=== PATIENT | female | born 1945 | race Hispanic/Latino ===

== ENCOUNTER 2021-12-22 19:21 | Observation (INO) | payer BC, MEDICARE ==
[2021-12-22 20:23] LABS: Absolute Lymphocytes (CBC) 3.2 K/uL (0.7-4.9); Hematocrit 40.1 % (36.0-45.0); Lymphocytes % 33.2 % (15.3-44.8); MCV 90.5 fL (80-100); MPV 9.4 fL (7.6-11.3); RBC Red Blood Cell Count 4.43 M/uL (3.86-4.86)
[2021-12-22 20:38] LABS: Albumin 4.5 g/dL (3.4-5.0); Bilirubin Total 1.6 mg/dL (0.2-1.0); Potassium 3.2 mmol/L (3.5-5.1); Protein, Total 8.3 g/dL (6.4-8.2)
[2021-12-22 21:06] LABS: Arterial Blood Carboxyhemoglob 1.4 % (0-1.5); Blood Gas Oxyhemoglobin 96.5 % (94-97); Blood O2 Saturation 98.9 % (92-98.5)
[2021-12-22 21:12] LABS: Magnesium 1.5 mg/dL (1.8-2.4); Troponin High Sensitivity 13.2 pg/mL (<58.9)
[2021-12-22 21:24] LABS: Urine Blood Negative (Negative); Urine Glucose 2+ (Negative); Urine Protein Negative (Negative); Urine pH 5.5 (5.0-7.0)
--- NOTE | 2021-12-22 21:35 | RAD REPORT ---
EXAM DESCRIPTION: CT - Head Brain Wo Cont - 12/22/2021 9:28 pm CLINICAL HISTORY: Dizziness, non-specific Headache, drowsiness COMPARISON: No comparisons TECHNIQUE: All CT scans are performed using dose optimization technique as appropriate and may inclu de automated exposure control or mA/KV adjustment according to patient size. FINDINGS: No intracranial hemorrhage, hydrocephalus or extra-axial fluid collection.Mild generalized brain atrophy is present with mild periventricular and deep white matter chronic microvascular ische maru changes.No areas of brain edema or evidence of midline shift. The paranasal sinuses and mastoids are clear. The calvarium is intact. IMPRESSION: No acute intracranial abnormality.
[2021-12-22 21:48] LABS: Urine Bacteria 20-50 /HPF (<20); Urine RBC <5 /HPF (None Seen)
[2021-12-22] MEDS ORDERED: NA CHLORIDE 0.9% 1,000 ML ONE (21:55)
[2021-12-22] MEDS ORDERED: ONDANSETRON 4 MG/2 ML VIAL ONE (21:55)
--- NOTE | 2021-12-22 22:12 | RAD REPORT ---
EXAM DESCRIPTION: RAD - Chest Single View - 12/22/2021 10:06 pm CLINICAL HISTORY: Hypertensive Chest pain. COMPARISON: No comparisons FINDINGS: Portable technique limits examination quality. The lungs are grossly clear. Calcified granulomata present right lung. The heart is normal in size. N o displaced fractures.Prior CABG changes noted. IMPRESSION: No acute intrathoracic process suspected.
[2021-12-22] MEDS ORDERED: CEFTRIAXONE 1000 MG/VIAL ONE (23:18)
[2021-12-22] MEDS ORDERED: MAGNESIUM SULFATE 1 gm IVPB 1 GM/100 ML BAG IV ONE (23:18)
[2021-12-22] MEDS ORDERED: NA CHLORIDE 0.9% 50 ML ONE ×2 (23:18→23:19)
--- NOTE | 2021-12-22 23:56 | ER ---
Nurse's Notes [facility] Name: Isabel Henry Age: 76 yrs Sex: Female : 1945 Arrival Date: 12/22/2021 Time: 19:26 Bed 16 Private MD: Denia Caraballo Diagnosis: Dizziness and giddiness;Type 2 diabetes mellitus with hyperglycemia;Hypo-osmolality and hyponatremia;Hypokalemia;Hypomagnesemia;UTI/ Urinary tract infection, site not specified Presentation: 12/22 19:34 Chief complaint: Patient's son or daughter states: "She has been dizzy and nauseous. tw5 Her blood sugar was 401 at home. She is suppose to be getting insulin but hasn't had it yet because we are waiting on insurance. She started trembling about an hour ago and stating her face was tingly.". Coronavirus screen: Vaccine status: Patient reports receiving the 2nd dose of the covid vaccine. J and J Moderna booster. Ebola Screen: Patient negative for fever greater than or equal to 101.5 degrees Fahrenheit, and additional compatible Ebola Virus Disease symptoms Patient denies exposure to infectious person. Patient denies travel to an Ebola-affected area in the 21 days before illness onset. Initial Sepsis Screen: Does the patient meet any 2 criteria? No. Patient's initial sepsis screen is negative. Does the patient have a suspected source of infection? No. Patient's initial sepsis screen is negative. Risk Assessment: Do you want to hurt yourself or someone else? Patient reports no desire to harm self or others. Onset of symptoms was December 22, 2021 at 17:00. 19:34 Method Of Arrival: Wheelchair tw5 19:34 Acuity: DIANELYS 3 tw5 Triage Assessment: 19:39 General: Appears uncomfortable, Behavior is calm, cooperative, appropriate for age. tw5 General: body tremors. Pain: Denies pain. GI: Reports nausea. Historical: - Allergies: 19:37 Depo-Provera; tw5 - PMHx: 19:37 Diabetes mellitus; Myocardial infarction; Pneumonia; tw5 19:39 Hypothyroidism; tw5 - Immunization history:: Flu vaccine is up to date. - Social history:: Smoking status: Patient/guardian denies using tobacco, the patient reports quitting approximately 8 years ago. Screenin:39 Abuse screen: Denies threats or abuse. Denies injuries from another. Abuse screen: tw5 Denies threats or abuse. Nutritional screening: No deficits noted. Tuberculosis screening: No symptoms or risk factors identified. 12/23 05:34 Fall Risk No fall in past 12 months (0 pts). Secondary diagnosis (15 points) Dizzy. IV vc1 access (20 points). Ambulatory Aid- None/Bed Rest/Nurse Assist (0 pts). Gait- Normal/Bed Rest/Wheelchair (0 pts) Mental Status- Oriented to own ability (0 pts). Total Beckett Fall Scale indicates Low Risk Score (25-44 pts). Fall prevention measures have been instituted. Side Rails Up X 2 Placed close to Nursing Station. Assessment: 05:34 GI: vc1 Vital Signs: 12/22 19:34 BP 152 / 58; Pulse 88; Resp 20; Temp 98.7(O); Pulse Ox 100% ; Weight 58.97 kg; Height 5 tw5 ft. 2 in. (157.48 cm); Pain 0/10; 21:01 Pulse 86; Resp 20; Temp 98.4(TE); mh5 21:10 BP 170 / 59 Supine; Pulse 89; Resp 18; Pulse Ox 100% on R/A; mh5 21:12 BP 157 / 56 Sitting; Pulse 92; Resp 18; Pulse Ox 100% on R/A; mh5 21:14 BP 157 / 60 Standing; Pulse 94; Resp 20; Pulse Ox 100% on R/A; mh5 19:34 Body Mass Index 23.78 (58.97 kg, 157.48 cm) tw5 ED Course: 19:26 Patient arrived in ED. am2 19:26 Denia Caraballo MD is Private Physician. am2 19:37 Triage completed. tw5 19:39 Arm band placed on. tw5 19:46 Initial lab(s) drawn, by nm, sent to lab. Inserted saline lock: 20 gauge in right tw5 antecubital area, using aseptic technique. Blood collected. 19:46 CBC with Diff Sent. tw5 19:46 CMP Sent. tw5 19:46 Lipase Sent. tw5 19:50 Bronwyn Barillas is Primary Nurse. tw5 19:57 Sumit Aguirre MD is Attending Physician. 7 20:01 EKG done, by ED staff, reviewed by Sumit Aguirre MD. mh5 20:58 Patient has correct armband on for positive identification. Placed in gown. Bed in low mh5 position. Call light in reach. Adult w/ patient. Child being held by parent. 21:03 COVID-19 SARS RT PCR (Document "Date of Onset" if Symptomatic) Sent. 5 21:04 Arterial Blood Gas Sent. 5 21:04 Ketone, Serum Sent. 5 21:04 Magnesium Sent. 5 21:10 COVID swab sent to lab. ABG drawn. by RT staff, on room air. 5 21:28 Warm blanket given. Pulse ox on. NIBP on. 5 21:30 CT Head Brain wo Cont In Process Unspecified. EDMS 22:08 Chest Single View XRAY In Process Unspecified. EDMS 23:54 Eric Mejia is Hospitalizing Provider. [facility] 12/23 02:00 No provider procedures requiring assistance completed. Patient admitted, IV remains in vc1 place. 07:37 Primary Nurse role handed off by Bronwyn Barillas Administered Medications: 12/22 21:50 Drug: NS 0.9% 1000 ml Route: IV; Rate: 1000 ml; Site: right antecubital; tw5 21:50 Drug: Zofran (Ondansetron) 4 mg Route: IVP; Site: right antecubital; tw5 23:13 Drug: Rocephin (cefTRIAXone) 1 grams Route: IV; Rate: per protocol; Site: right tw5 antecubital; 23:14 Drug: Magnesium Sulfate 1 grams Route: IVPB; Infused Over: 1 hrs; Site: right tw5 antecubital; Medication: 12/23 02:00 VIS not applicable for this client. vc1 Outcome: 12/22 23:55 Decision to Hospitalize by Provider. [facility] 12/23 02:00 Admitted to ER Hold. Please see [facility] for further documentation. vc1 Condition: good Instructed on the need for admit. 14:01 Patient left the ED. Signatures: Dispatcher [employer] EDIA Cora Dodd RN RN Isabel Araiza 5 Chaya Kang Elizabeth eb Holmes, Maurice, MD MD [facility] Bronwyn Barillas Calcote, Jenny, RN RN vc1 Corrections: (The following items were deleted from the chart) 12/22 19:39 19:37 Allergies: No Known Allergies; 21:49 Zofran (Ondansetron) 4 mg IVP in left antecubital 21:49 NS 0.9% 1000 ml IV at 1000 ml in left antecubital
--- NOTE | 2021-12-22 23:56 | EDPHYS ---
Physician Documentation [facility] Name: Isabel Henry Age: 76 yrs Sex: Female : 1945 Arrival Date: 12/22/2021 Time: 19:26 Bed 16 Private MD: Denia Caraballo ED Physician Sumit Aguirre HPI: 12/22 20:30 This 76 yrs old Female presents to ER via Wheelchair with complaints of mh7 Dizziness, Nausea, Abdominal Pain, High Blood Pressure. 20:30 The patient presents with dizziness, lightheadedness, feeling off balance. mh7 20:30 Onset: The symptoms/episode began/occurred yesterday, at an unknown time. Context: mh7 occurred at home, occurred while the patient was standing, just prior to the episode the patient experienced no apparent symptoms. Modifying factors: The symptoms are alleviated by nothing, the symptoms are aggravated by nothing. Associated signs and symptoms: Pertinent positives: nausea, Pertinent negatives: abdominal pain, agitation, ataxia, blurred vision, chest pain, combativeness, confusion, diaphoresis, focal weakness, head injury, headache, near-syncope, numbness, palpitations, seizure, shortness of breath, syncope, tingling, vomiting. Severity of symptoms: At their worst the symptoms were moderate last night, in the emergency department the symptoms have improved moderately. Patient's baseline: Neuro: alert and fully oriented, Motor: no deficits, Ambulation: walks without assistance, Speech: normal. Also reports blood glucose greater than 400 today and feeling tremulous.. Historical: - Allergies: 19:37 Depo-Provera; tw5 - PMHx: 19:37 Diabetes mellitus; Myocardial infarction; Pneumonia; tw5 19:39 Hypothyroidism; tw5 - Immunization history:: Flu vaccine is up to date. - Social history:: Smoking status: Patient/guardian denies using tobacco, the patient reports quitting approximately 8 years ago. ROS: 20:30 Constitutional: Negative for fever, chills, and weight loss, Eyes: Negative for injury, mh7 pain, redness, and discharge, ENT: Negative for injury, pain, and discharge, Neck: Negative for injury, pain, and swelling, Cardiovascular: Negative for chest pain, palpitations, and edema, Respiratory: Negative for shortness of breath, cough, wheezing, and pleuritic chest pain, Back: Negative for injury and pain, : Negative for injury, bleeding, discharge, and swelling, MS/Extremity: Negative for injury and deformity, Skin: Negative for injury, rash, and discoloration, Neuro: Negative for headache, weakness, numbness, tingling, and seizure, Psych: Negative for depression, anxiety, suicide ideation, homicidal ideation, and hallucinations, Allergy/Immunology: Negative for hives, rash, and allergies, Endocrine: Negative for neck swelling, polydipsia, polyuria, polyphagia, and marked weight changes, Hematologic/Lymphatic: Negative for swollen nodes, abnormal bleeding, and unusual bruising. Exam: 20:30 Constitutional: This is a well developed, well nourished patient who is awake, alert, mh7 and in no acute distress. Head/Face: Normocephalic, atraumatic. Eyes: Pupils equal round and reactive to light, extra-ocular motions intact. Lids and lashes normal. Conjunctiva and sclera are non-icteric and not injected. Cornea within normal limits. Periorbital areas with no swelling, redness, or edema. Neck: Trachea midline, no thyromegaly or masses palpated, and no cervical lymphadenopathy. Supple, full range of motion without nuchal rigidity, or vertebral point tenderness. No Meningismus. Chest/axilla: Normal chest wall appearance and motion. Nontender with no deformity. No lesions are appreciated. Cardiovascular: Regular rate and rhythm with a normal S1 and S2. No gallops, murmurs, or rubs. Normal PMI, no JVD. No pulse deficits. Respiratory: Lungs have equal breath sounds bilaterally, clear to auscultation and percussion. No rales, rhonchi or wheezes noted. No increased work of breathing, no retractions or nasal flaring. Abdomen/GI: Soft, non-tender, with normal bowel sounds. No distension or tympany. No guarding or rebound. No evidence of tenderness throughout. Back: No spinal tenderness. No costovertebral tenderness. Full range of motion. Skin: Warm, dry with normal turgor. Normal color with no rashes, no lesions, and no evidence of cellulitis. MS/ Extremity: Pulses equal, no cyanosis. Neurovascular intact. Full, normal range of motion. 20:30 Psych: Awake, alert, with orientation to person, place and time. Behavior, mood, and affect are within normal limits. 20:30 Neuro: Orientation: is normal, Mentation: is normal, Memory: is normal, Cranial nerves: grossly normal, Cerebellar function: is grossly normal, Motor: is normal, Sensation: is normal, Gait: not tested. seizure activity, is not displayed by the patient, Abnormal movements: there are no abnormal movements. Vital Signs: 19:34 BP 152 / 58; Pulse 88; Resp 20; Temp 98.7(O); Pulse Ox 100% ; Weight 58.97 kg; Height 5 tw5 ft. 2 in. (157.48 cm); Pain 0/10; 21:01 Pulse 86; Resp 20; Temp 98.4(TE); mh5 21:10 BP 170 / 59 Supine; Pulse 89; Resp 18; Pulse Ox 100% on R/A; mh5 21:12 BP 157 / 56 Sitting; Pulse 92; Resp 18; Pulse Ox 100% on R/A; mh5 21:14 BP 157 / 60 Standing; Pulse 94; Resp 20; Pulse Ox 100% on R/A; mh5 19:34 Body Mass Index 23.78 (58.97 kg, 157.48 cm) tw5 MDM: 23:52 Differential diagnosis: cardiac arrhythmia, CVA, hypovolemia, idiopathic dizziness, 7 near-syncope, sepsis, syncope, TIA, vertigo. Data reviewed: vital signs, nurses notes, lab test result(s), cardiac enzymes, CBC, electrolytes, urinalysis, EKG, radiologic studies, CT scan, plain films. Data interpreted: Pulse oximetry: on room air is 100 %. Interpretation: normal. Counseling: I had a detailed discussion with the patient and/or guardian regarding: the historical points, exam findings, and any diagnostic results supporting the discharge/admit diagnosis, the presence of at least one elevated blood pressure reading (>120/80) during this emergency department visit, lab results, radiology results, the need for further work-up and treatment in the hospital. Response to treatment: the patient's symptoms have mildly improved after treatment. 23:55 Patient medically screened. [facility] 12/22 19:34 Order name: CBC with Diff; Complete Time: 20:42 tw5 12/22 19:34 Order name: CMP; Complete Time: 20:42 tw5 12/22 19:34 Order name: Lipase; Complete Time: 20:42 5 12/22 20:44 Order name: Troponin High Sensitivity; Complete Time: 22:32 7 12/22 20:44 Order name: Arterial Blood Gas; Complete Time: 22:32 7 12/22 20:44 Order name: Ketone, Serum; Complete Time: 22:32 7 12/22 20:44 Order name: Magnesium; Complete Time: 22:32 [facility] 12/22 20:45 Order name: Urine Microscopic Only; Complete Time: 22:32 [facility] 12/22 20:45 Order name: COVID-19 SARS RT PCR (Document "Date of Onset" if Symptomatic); Complete [facility] Time: 22:32 12/22 21:25 Order name: Urine Dipstick-Ancillary; Complete Time: 22:32 [facility] 12/22 21:51 Order name: Urine Culture [facility] 12/23 05:48 Order name: CBC with Automated Diff [facility] 12/23 06:10 Order name: Basic Metabolic Panel [facility] 12/23 06:10 Order name: Phosphorus [facility] 12/22 20:44 Order name: Chest Single View XRAY; Complete Time: 22:32 7 12/22 20:44 Order name: CT Head Brain wo Cont; Complete Time: 22:32 [facility] 12/23 06:10 Order name: Lipid Profile [facility] 12/23 06:10 Order name: Magnesium [facility] 12/23 06:10 Order name: Thyroid Stimulating Hormone [facility] 12/23 06:18 Order name: Osmolality, Serum EDMN 12/23 06:23 Order name: LDL, Direct EDMN 12/23 06:23 Order name: T4 Free [facility] 12/23 06:29 Order name: Hemoglobin A1c [facility] 12/23 06:42 Order name: UR POTASSIUM EDMS 12/23 08:23 Order name: Glucose, Ancillary Testing [facility] 12/23 11:41 Order name: Glucose, Ancillary Testing [facility] 12/22 19:34 Order name: IV Saline Lock; Complete Time: 19:46 12/22 19:34 Order name: Labs collected and sent; Complete Time: 19:46 12/22 19:34 Order name: Urine Dipstick-Ancillary (obtain specimen); Complete Time: 22:24 12/22 20:01 Order name: EKG - Nurse/Tech; Complete Time: 20:01 [facility] 12/22 20:44 Order name: Orthostatics; Complete Time: 22:24 7 Administered Medications: 21:50 Drug: NS 0.9% 1000 ml Route: IV; Rate: 1000 ml; Site: right antecubital; tw5 21:50 Drug: Zofran (Ondansetron) 4 mg Route: IVP; Site: right antecubital; tw5 23:13 Drug: Rocephin (cefTRIAXone) 1 grams Route: IV; Rate: per protocol; Site: right tw5 antecubital; 23:14 Drug: Magnesium Sulfate 1 grams Route: IVPB; Infused Over: 1 hrs; Site: right tw5 antecubital; Disposition Summary: 12/22/21 23:55 Hospitalization Ordered Hospitalization Status: Inpatient Admission [facility] Provider: Eric Mejia Selvin Condition: Stable [facility] Problem: new [facility] Symptoms: have improved [facility] Bed/Room Type: Standard [facility] Location: [facility] ER HOLD(12/23/21 11:22) Room Assignment: (12/23/21 11:22) Diagnosis - Dizziness and giddiness mh7 - Type 2 diabetes mellitus with hyperglycemia 7 - Hypo-osmolality and hyponatremia 7 - Hypokalemia mh7 - Hypomagnesemia mh7 - UTI/ Urinary tract infection, site not specified [facility] Forms: - Medication Reconciliation Form 7 - SBAR form 7 Signatures: Dispatcher [employer] Letty Guallpa RN RN dw Swanson, Donovan 4 Isabel Araiza 5 Sumit Aguirre MD MD Bronwyn Whatley 5 Janie Orozco PA PA sb3 Corrections: (The following items were deleted from the chart) 19:39 19:37 Allergies: No Known Allergies; tw5 tw5 21:13 21:10 The patient or guardian reports 7 mh7 12/23 00:16 12/22 23:55 Telemetry/MedSurg (Inpatient) 7 ds4 12/23 00:16 12/22 23:55 7 4 12/23 11:02 00:16 [facility] ER HOLD ds4 11:02 00:16 ERHOLD- ds4 dw 11:22 11:02 Telemetry/MedSurg (Inpatient) dw dw 11:22 11:02 205 dw dw
--- NOTE | 2021-12-23 00:50 | P.HP ---
Certification for Inpatient Patient admitted to: Inpatient With expected LOS: <2 Midnights Patient will require the following post-hospital care: None Practitioner: I am a practitioner with admitting privileges, knowledge of patient current condition, hospital course, and medical plan of care. Services: Services provided to patient in accordance with Admission requirements found in Title 42 Section 412.3 of the Code of Federal Regulations Patient History Date of Service: 12/23/21 Reason for admission: Dizziness History of Present Illness: Patient is a 76-year-old female with CAD, insulin-dependent diabetes mellitus, hypothyroidism, hyperlipidemia, hypertension and CVA who presented to the ED with complaints of dizziness, hyperglycemia, and hypertension. Patient states the dizziness has been occurring for about 24 hours now. She does admit to decreased appetite/PO intake. She also reports that she is supposed to be on insulin, but insurance has not approved it yet. Her labs today are significant for creatinine of 1.44, sodium 127, potassium 3.2, chloride 93, BUN 29, glucose 331, magnesium 1.5. ABG showed pH 7.5, PCO2 25.6, PO2 115, bicarb 19.8. She was given 1 L fluids, Zofran, Rocephin, and supplemental magnesium in the ED. VSS. ED provider wishes to admit patient for further evaluation and treatment. Home medications list reviewed: Yes - Past Medical/Surgical History Diabetic: Yes -: Type 2 Diabetes, Insulin-Dependent -: Hypertension -: Hyperlipidemia -: CAD -: Hypothyroidism -: CVA -: Triple Bypass -: Cholecystecomy -: L knee replacement Psychosocial/ Personal History: Patient lives with her 2 sons. - Family History Father -: Lung disease, Cancer Mother -: Diabetes - Social History Smoking Status: Former smoker Alcohol use: No CD- Drugs: No Caffeine use: Yes Place of Residence: Home Review of Systems General: As per HPI Physical Examination - Physical Exam General: Alert, In no apparent distress, Oriented x3 HEENT: Atraumatic, PERRLA, EOMI, Sclerae nonicteric Neck: Supple, 2+ carotid pulse no bruit, No LAD, Without JVD or thyroid abnormality Respiratory: Clear to auscultation bilaterally, Normal air movement Cardiovascular: Regular rate/rhythm, Normal S1 S2 Gastrointestinal: Normal bowel sounds, No tenderness Musculoskeletal: No tenderness Integumentary: No rashes Neurological: Normal speech, Normal strength at 5/5 x4 extr, Normal tone, Normal affect - Studies Laboratory Data (last 24 hrs) 12/22/21 19:45: Magnesium 1.5 L 12/22/21 19:45: Sodium 127 L, Potassium 3.2 L, BUN 29 H, Creatinine 1.44 H, Glucose 331 H, Total Bilirubin 1.6 H, AST 22, ALT 29, Alkaline Phosphatase 55, Lipase 180 12/22/21 19:45: WBC 9.6, Hgb 14.1, Hct 40.1, Plt Count 324 Assessment and Plan - Problems (Diagnosis) (1) Dizziness Current Visit: Yes Status: Acute (2) Hyponatremia Current Visit: Yes Status: Acute (3) Type 2 diabetes mellitus Current Visit: Yes Status: Chronic 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 Diabetes mellitus complication status: with hyperglycemia Qualified Code(s): E11.65 - Type 2 diabetes mellitus with hyperglycemia; 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 (4) Acute renal failure superimposed on stage 3b chronic kidney disease Current Visit: Yes Status: Acute Qualifiers: Acute renal failure type: unspecified Qualified Code(s): N17.9 - Acute kidney failure, unspecified; N18.32 - Chronic kidney disease, stage 3b (5) Hypokalemia Current Visit: Yes Status: Acute (6) Hypomagnesemia Current Visit: Yes Status: Acute (7) Hypertension Current Visit: Yes Status: Chronic Qualifiers: Hypertension type: primary hypertension Qualified Code(s): I10 - Essential (primary) hypertension (8) CAD (coronary artery disease) Current Visit: Yes Status: Chronic Qualifiers: Coronary Disease-Associated Artery/Lesion type: bypass graft [place] vs. transplanted heart: [place] heart Associated angina: without angina Qualified Code(s): I25.810 - Atherosclerosis of coronary artery bypass graft(s) without angina pectoris (9) Hypothyroidism Current Visit: Yes Status: Chronic Qualifiers: Hypothyroidism type: acquired Qualified Code(s): E03.9 - Hypothyroidism, unspecified - Plan -NS at 75 cc/hr. Encourage PO intake -Recheck BMP in morning. Dizziness could be secondary to hypovolemia/dehydration/electrolyte abnormalities -Serum osmolality, urine osmolality, and urine sodium pending -A1C ordered for morning. Aggressive SS with diabetic diet -Continue rocephin for UTI -PT consult -Monitor and replete electrolytes per protocol -Reconcile and continue home medications -Lovenox for VTE ppx -Full code Discharge Plan: Home Plan to discharge in: 48 Hours - Advance Directives Does patient have a Living Will: No Does patient have a Durable POA for Healthcare: No - Code Status/Comfort Care Code Status Assessed: Yes (Full) Critical Care: No Time Spent Managing Pts Care (In Minutes): 50
[2021-12-23] MEDS ORDERED: ACETAMINOPHEN 500 MG TAB PO PRN (03:02)
[2021-12-23] MEDS ORDERED: NA CHLORIDE 0.9% 1,000 ML IV SCH (03:02)
[2021-12-23] MEDS ORDERED: ONDANSETRON 4 MG/2 ML VIAL IV PRN (05:00)
[2021-12-23 05:34] LABS: Absolute Lymphocytes (CBC) 2.1 K/uL (0.7-4.9); Hematocrit 34.1 % (36.0-45.0); MCV 90.5 fL (80-100); RBC Red Blood Cell Count 3.76 M/uL (3.86-4.86)
[2021-12-23 05:41] VITALS: BMI 23.3
[2021-12-23 06:00] LABS: BUN Blood Urea Nitrogen 22 mg/dL (7-18); Bicarbonate 23 mmol/L (21-32); Glomerular Filtration Rate 48 ml/min (=/>90); Glucose Level 291 mg/dL (74-106); HDL Cholesterol 30 mg/dL (40-60); Magnesium 1.9 mg/dL (1.8-2.4); Phosphorus 2.8 mg/dL (2.5-4.9); Potassium 3.9 mmol/L (3.5-5.1); Sodium Level 135 mmol/L (136-145)
[2021-12-23 06:22] LABS: LDL, Direct 78 mg/dL (100-129)
[2021-12-23] MEDS: INSULIN -REGULAR HUMAN 50 UNIT/0.5 ML ML SQ SCH ×2 (07:30→12:38)
[2021-12-23] MEDS ORDERED: CEFTRIAXONE 1000 MG/VIAL ONE (08:47)
[2021-12-23] MEDS ORDERED: ENOXAPARIN 30 MG/0.3 ML SQ ONE (08:48)
[2021-12-23] MEDS ORDERED: INSULIN -REGULAR HUMAN 50 UNIT/0.5 ML ML ONE ×2 (08:48→12:21)
[2021-12-23] MEDS ORDERED: NA CHLORIDE 0.9% 50 ML ONE (08:49)
[2021-12-23] MEDS ORDERED: CEFTRIAXONE 1,000 MG in NA CHLORIDE 0.9% 50 ML IVPB SCH (09:00)
[2021-12-23] MEDS ORDERED: ENOXAPARIN 30 MG/0.3 ML SQ SCH (09:00)
[2021-12-23] MEDS ORDERED: PNEUMOCOCCAL VACCINE 0.5 ML IMVAC ONE (12:00)
--- NOTE | 2021-12-23 12:06 | P.DS ---
Admission Date: 12/23/21 Discharge Date: 12/23/21 Disposition: ROUTINE DISCHARGE Discharge Condition: FAIR Reason for Admission: Dizziness - Problems (1) Hyperlipidemia Current Visit: Yes Status: Acute (2) Dizziness Current Visit: Yes Status: Acute (3) Hypothyroidism Current Visit: Yes Status: Chronic Qualifiers: Hypothyroidism type: acquired Qualified Code(s): E03.9 - Hypothyroidism, unspecified (4) Type 2 diabetes mellitus Current Visit: Yes Status: Chronic Qualifiers: Diabetes mellitus detention insulin use: with detention use Diabetes mellitus complication status: with hyperglycemia Qualified Code(s): E11.65 - Type 2 diabetes mellitus with hyperglycemia; Z79.4 - prison (current) use of insulin Brief History of Present Illness: Patient is a 76-year-old female with CAD, insulin-dependent diabetes mellitus, hypothyroidism, hyperlipidemia, hypertension and CVA who presented to the ED with complaints of dizziness, hyperglycemia, and hypertension. Patient stated the dizziness has been occurring for about 24 hours. She reported decreased oral intake. She also reports that she is supposed to be on Ozempic, but insurance has not approved it yet. Her labs were significant for creatinine of 1.44, sodium 127, potassium 3.2, chloride 93, BUN 29, glucose 331, magnesium 1.5. ABG showed pH 7.5, PCO2 25.6, PO2 115, bicarb 19.8. She was given 1 L fluids, Zofran, Rocephin, and supplemental magnesium in the ED. vitals stable. Patient placed under observation for further management. Hospital Course: Patient placed on observation on the medical floor and hydrated with IV fluids. Patient states that his dizziness improved with treatment, currently not dizzy. She was ambulatory. Vitals have been stable. No limb weakness. Blood sugar readings improved. Head CT unremarkable Her hemoglobin A1c is 12. Patient stated her physician has prescribed new diabetes medications including glipizide and Ozempic. Patient is deemed stable for discharge. She is prescribed fenofibrate for hypertriglyceridemia. Vital Signs/Physical Exam: Temp Pulse Resp BP Pulse Ox 97.3 F 72 18 105/71 100 12/23/21 08:00 12/23/21 08:00 12/23/21 08:00 12/23/21 08:00 12/23/21 08:00 General: Alert, In no apparent distress, Oriented x3 HEENT: Mucous membr. moist/pink Neck: Supple, JVD not distended Respiratory: Clear to auscultation bilaterally, Normal air movement Cardiovascular: No edema, Regular rate/rhythm, Normal S1 S2, No murmurs Gastrointestinal: Normal bowel sounds, Soft and benign, Non-distended, No tenderness Musculoskeletal: No swelling Integumentary: No rashes, No cyanosis Neurological: Normal speech, Normal strength at 5/5 x4 extr, Cranial nerves 3-12 intact Laboratory Data at Discharge: WBC 7.9 K/uL (4.3-10.9) D 12/23/21 04:30 Hgb 12.5 g/dL (12.0-15.0) 12/23/21 04:30 Hct 34.1 % (36.0-45.0) L 12/23/21 04:30 Plt Count 232 K/uL (152-406) D 12/23/21 04:30 Sodium 135 mmol/L (136-145) L 12/23/21 04:30 Potassium 3.9 mmol/L (3.5-5.1) 12/23/21 04:30 BUN 22 mg/dL (7-18) H 12/23/21 04:30 Creatinine 1.17 mg/dL (0.55-1.3) 12/23/21 04:30 Glucose 291 mg/dL (74-106) H 12/23/21 04:30 Phosphorus 2.8 mg/dL (2.5-4.9) 12/23/21 04:30 Magnesium 1.9 mg/dL (1.8-2.4) 12/23/21 04:30 Total Bilirubin 1.6 mg/dL (0.2-1.0) H 12/22/21 19:45 AST 22 U/L (15-37) 12/22/21 19:45 ALT 29 U/L (12-78) 12/22/21 19:45 Alkaline Phosphatase 55 U/L (45-117) 12/22/21 19:45 Triglycerides 405 mg/dL (<150) H 12/23/21 04:30 Cholesterol 146 mg/dL (<200) 12/23/21 04:30 LDL Cholesterol Direct 78 mg/dL (100-129) L 12/23/21 04:30 HDL Cholesterol 30 mg/dL (40-60) L 12/23/21 04:30 Cholesterol/HDL Ratio 4.87 12/23/21 04:30 Lipase 180 U/L ([id number]) 12/22/21 19:45 Home Medications: Fenofibrate [Tricor] 48 mg PO DAILY #30 tab 12/23/21 Metformin ER [Glucophage ER*] 1,000 mg PO BIDWM 12/23/21 Metoprolol Succinate [Toprol Xl*] 25 mg PO DAILY 12/23/21 hydroCHLOROthiazide [Hydrodiuril*] 25 mg PO DAILY 12/23/21 New Medications: Fenofibrate [Tricor] 48 mg PO DAILY #30 tab Diet: ADA Activity: Fall precautions Followup: Denia Caraballo MD [Primary Care Provider] - 1-2 Weeks
[2021-12-23 14:21] VITALS: O2SAT 100
[2021-12-23 14:22] VITALS: TEMP 98.4
[2021-12-23 14:29] VITALS: BP 157/60
--- NOTE | 2021-12-25 12:27 | EKG ---
Test Date: 2021-12-22 Test Time: 19:53:14 Sales Superintendent: MARLEE MEASUREMENT RESULTS: Intervals: Rate: 89 OK: 142 QRSD: 84 QT: 382 QTc: 464 Proctor: P: -20 OK: 142 QRS: 7 T: 9 INTERPRETIVE STATEMENTS: Normal sinus rhythm Nonspecific T wave abnormality Abnormal ECG Compared to ECG 10/27/2001 18:23:00 T-wave abnormality now present Electronically Signed On 12-25-21 12:24:20 CDT by Lio Diaz
== END 2021-12-23 13:25 | disposition home or self-care (01) ==
LOC: ER 19:21 → INTOOBSV 12-23 00:39 → ERHOLD 12-23 00:39
PROVIDERS: ADMIT Internal Medicine; ATTEND Internal Medicine
DX: R42 Dizziness and giddiness (principal); E11.65 Type 2 diabetes mellitus with hyperglycemia; N39.0 Urinary tract infection, site not specified; E87.1 Hypo-osmolality and hyponatremia; E78.5 Hyperlipidemia, unspecified; E03.9 Hypothyroidism, unspecified; I25.10 Atherosclerotic heart disease of native coronary artery without angina pectoris; I10 Essential (primary) hypertension; E78.1 Pure hyperglyceridemia; E87.6 Hypokalemia; E83.42 Hypomagnesemia; I25.2 Old myocardial infarction; Z20.822 Contact with and (suspected) exposure to COVID-19; Z79.4 Long term (current) use of insulin; Z86.73 Personal history of transient ischemic attack (TIA), and cerebral infarction without residual deficits; Z95.1 Presence of aortocoronary bypass graft; Z87.891 Personal history of nicotine dependence; Z96.652 Presence of left artificial knee joint; Z90.49 Acquired absence of other specified parts of digestive tract; Z83.3 Family history of diabetes mellitus; Z80.9 Family history of malignant neoplasm, unspecified
CPT/HCPCS: 93005; 87088; 85025 ×2; 87086; 80048; 36415; 82010; 83721; 83735 ×2; 84100; 84132; 80061; 82947 ×2; 84443; 83036; 84484; 84439; 83690; 80053; 83930; 70450; 71045; 82805; 96375; 96374; 99285; U0003; J1815 ×2; J1650; J3475; J7030; J2405; 81003; 81015

== ENCOUNTER 2022-04-23 12:35 | Emergency (ER) | payer MEDICARE ==
--- OUTSIDE RECORDS SUMMARY | 2022-04-23 12:39 | XMS REPORT | Continuity of Care Document ---
:[address] [facility] t Address [address] [place] [address] Care Team Providers Name Role Phone Denia Caraballo Attending Clinician Unavailable Payers Payer Name Policy Type Policy Number Effective Date Expiration Date [facility] [id number] 2021 (MEDICARE 00:00:00 REPLACEMENT HMO) Problems Condition Condition Condition Status Onset Resolution Last Treating Co mments Source Name Details Category Date Date Treatment Clinician Date [id number] Allergy to Problem Co mmon ant bite [facility] [id number] Essential Problem Comm on (primary) Spirit hypertensi - [facility] on 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 [id number] Hypothyroi Problem Com mon dism, Spirit unspecifie - [facility] d type [facility] [id number] Coronary Problem Comm on artery Spirit disease - [facility] involving [facility] coronary Medical artery [place] heart without angina pectoris Gastroesop GERD Problem Commo n hageal without Spirit reflux esophagiti - [facility] disease s [facility] [id number] Stage 3a Problem Comm on chronic Spirit kidney - [facility] disease [facility] [id number] Type 2 Problem Commo n [id number] diabetes [facility] mellitus - with other [facility] kidney Medical complicati Center on Allergies, Adverse Reactions, Alerts Allergy Allergy Status Severity Reaction(s) Onset Inactive Treating Comm ents Source Name Type Date Date Clinician medroxyp medroxyp Active Unknown Commo n yuly Kat one one [facility] Social History Social Habit Start Date Stop Date Quantity Comments Source History of Tobacco Use Co mmon [facility] Sex Assigned At Com mirna [facility] Smoking Status Start Date Stop Date Source Former Smoker 2022-02-14 00:00:00 2022-02-14 00:00:00 Common S [facility] Medications Ordered Filled Start Stop Current Ordering Indication Dosage Frequency Signature Comments Components Source Medication Medication Date Date Medication? Clinician (SIG) Name Name glipiZIDE glipiZIDE No 1{table QD glipiZIDE XL 10 MG XL 10 MG t_with_ XL [address]} Lisinopril Lisinopril No 1{table QD Lisinopril 20 MG 20 MG t} 20 MG Lisinopril Lisinopril No 1{table QD Lisinopril 20 MG 20 MG t} 20 MG Fenofibrate Fenofibrate No 1{table QD Fenofibrat 145 MG 145 MG t} e 145 MG Omeprazole Omeprazole No QD Omeprazole 20 MG 20 MG 20 MG Ozempic Ozempic No Ozempic (0.25 or (0.25 or (0.25 or 0.5 0.5 0.5 MG/DOSE) 2 MG/DOSE) 2 MG/DOSE) 2 MG/1.5ML MG/1.5ML MG/1.5ML Atorvastati Atorvastati No 1{table QD Atorvastat n Calcium n Calcium t} in Calcium 40 MG 40 MG 40 MG Levothyroxi Levothyroxi No QD Levothyrox ne Sodium ne Sodium ine Sodium 75 MCG 75 MCG 75 MCG Fenofibrate Fenofibrate No 1{table QD Fenofibrat 145 MG 145 MG t} e 145 MG NIFEdipine NIFEdipine No NIFEdipine ER 30 MG ER 30 MG ER 30 MG hydroCHLORO hydroCHLORO No 1{table QD hydroCHLOR thiazide 25 thiazide 25 t_in_th Othiazide MG MG e_morni 25 MG ng} glipiZIDE glipiZIDE No 1{table QD glipiZIDE XL 10 MG XL 10 MG t_with_ XL [address]} metFORMIN metFORMIN No 1{table BID metFORMIN HCl 1000 MG HCl 1000 MG t_with_ HCl 1000 a_meal} MG Metoprolol Metoprolol No 1{table QD Metoprolol Succinate Succinate t} Succinate ER 25 MG ER 25 MG ER 25 MG Ozempic Ozempic No Ozempic (0.25 or (0.25 or (0.25 or 0.5 0.5 0.5 MG/DOSE) 2 MG/DOSE) 2 MG/DOSE) 2 MG/1.5ML MG/1.5ML MG/1.5ML Diflucan Diflucan No Diflucan 150 MG 150 MG 150 MG Lisinopril Lisinopril No 1{table QD Lisinopril 20 MG 20 MG t} 20 MG Fenofibrate Fenofibrate No 1{table QD Fenofibrat 145 MG 145 MG t} e 145 MG Ozempic Ozempic No Ozempic (0.25 or (0.25 or (0.25 or 0.5 0.5 0.5 MG/DOSE) 2 MG/DOSE) 2 MG/DOSE) 2 MG/1.5ML MG/1.5ML MG/1.5ML Atorvastati Atorvastati No 1{table QD Atorvastat n Calcium n Calcium t} in Calcium 40 MG 40 MG 40 MG hydroCHLORO hydroCHLORO No 1{table QD hydroCHLOR thiazide 25 thiazide 25 t_in_th Othiazide MG MG e_morni 25 MG ng} Omeprazole Omeprazole No QD Omeprazole 20 MG 20 MG 20 MG Metoprolol Metoprolol No 1{table QD Metoprolol Succinate Succinate t} Succinate ER 25 MG ER 25 MG ER 25 MG glipiZIDE glipiZIDE No 1{table QD glipiZIDE XL 10 MG XL 10 MG t_with_ XL [address]} Ozempic Ozempic No Ozempic (0.25 or (0.25 or (0.25 or 0.5 0.5 0.5 MG/DOSE) 2 MG/DOSE) 2 MG/DOSE) 2 MG/1.5ML MG/1.5ML MG/1.5ML NIFEdipine NIFEdipine No NIFEdipine ER 30 MG ER 30 MG ER 30 MG Diflucan Diflucan No Diflucan 150 MG 150 MG 150 MG Fenofibrate Fenofibrate No 1{table QD Fenofibrat 145 MG 145 MG t} e 145 MG Lisinopril Lisinopril No 1{table QD Lisinopril 20 MG 20 MG t} 20 MG metFORMIN metFORMIN No 1{table BID metFORMIN HCl 1000 MG HCl 1000 MG t_with_ HCl 1000 a_meal} MG glipiZIDE glipiZIDE No 1{table QD glipiZIDE XL 10 MG XL 10 MG t_with_ XL [address]} Levothyroxi Levothyroxi No QD Levothyrox ne Sodium ne Sodium ine Sodium 75 MCG 75 MCG 75 MCG glipiZIDE glipiZIDE No 1{table QD glipiZIDE XL 10 MG XL 10 MG t_with_ XL [address]} Lisinopril Lisinopril No 1{table QD Lisinopril 20 MG 20 MG t} 20 MG Lisinopril Lisinopril No 1{table QD Lisinopril 20 MG 20 MG t} 20 MG Fenofibrate Fenofibrate No 1{table QD Fenofibrat 145 MG 145 MG t} e 145 MG Omeprazole Omeprazole No QD Omeprazole 20 MG 20 MG 20 MG Ozempic Ozempic No Ozempic (0.25 or (0.25 or (0.25 or 0.5 0.5 0.5 MG/DOSE) 2 MG/DOSE) 2 MG/DOSE) 2 MG/1.5ML MG/1.5ML MG/1.5ML Atorvastati Atorvastati No 1{table QD Atorvastat n Calcium n Calcium t} in Calcium 40 MG 40 MG 40 MG Levothyroxi Levothyroxi No QD Levothyrox ne Sodium ne Sodium ine Sodium 75 MCG 75 MCG 75 MCG Fenofibrate Fenofibrate No 1{table QD Fenofibrat 145 MG 145 MG t} e 145 MG NIFEdipine NIFEdipine No NIFEdipine ER 30 MG ER 30 MG ER 30 MG hydroCHLORO hydroCHLORO No 1{table QD hydroCHLOR thiazide 25 thiazide 25 t_in_th Othiazide MG MG e_morni 25 MG ng} glipiZIDE glipiZIDE No 1{table QD glipiZIDE XL 10 MG XL 10 MG t_with_ XL [address]} metFORMIN metFORMIN No 1{table BID metFORMIN HCl 1000 MG HCl 1000 MG t_with_ HCl 1000 a_meal} MG Metoprolol Metoprolol No 1{table QD Metoprolol Succinate Succinate t} Succinate ER 25 MG ER 25 MG ER 25 MG Ozempic Ozempic No Ozempic (0.25 or (0.25 or (0.25 or 0.5 0.5 0.5 MG/DOSE) 2 MG/DOSE) 2 MG/DOSE) 2 MG/1.5ML MG/1.5ML MG/1.5ML Diflucan Diflucan No Diflucan 150 MG 150 MG 150 MG NIFEdipine NIFEdipine No NIFEdipine ER 30 MG ER 30 MG ER 30 MG Atorvastati Atorvastati No 1{table QD Atorvastat n Calcium n Calcium t} in Calcium 40 MG 40 MG 40 MG Levothyroxi Levothyroxi No QD Levothyrox ne Sodium ne Sodium ine Sodium 25 MCG 25 MCG 25 MCG metFORMIN metFORMIN No 1{table BID metFORMIN HCl 1000 MG HCl 1000 MG t_with_ HCl 1000 a_meal} MG hydroCHLORO hydroCHLORO No 1{table QD hydroCHLOR thiazide 25 thiazide 25 t_in_th Othiazide MG MG e_morni 25 MG ng} Metoprolol Metoprolol No 1{table QD Metoprolol Succinate Succinate t} Succinate ER 25 MG ER 25 MG ER 25 MG Omeprazole Omeprazole No QD Omeprazole 20 MG 20 MG 20 MG hydroCHLORO hydroCHLORO No 1{table QD hydroCHLOR thiazide 25 thiazide 25 t_in_th Othiazide MG MG e_morni 25 MG ng} Omeprazole Omeprazole No QD Omeprazole 20 MG 20 MG 20 MG NIFEdipine NIFEdipine No NIFEdipine ER 30 MG ER 30 MG ER 30 MG metFORMIN metFORMIN No 1{table BID metFORMIN HCl 1000 MG HCl 1000 MG t_with_ HCl 1000 a_meal} MG Metoprolol Metoprolol No 1{table QD Metoprolol Succinate Succinate t} Succinate ER 25 MG ER 25 MG ER 25 MG Levothyroxi Levothyroxi No QD Levothyrox ne Sodium ne Sodium ine Sodium 25 MCG 25 MCG 25 MCG Atorvastati Atorvastati No 1{table QD Atorvastat n Calcium n Calcium t} in Calcium 40 MG 40 MG 40 MG NIFEdipine NIFEdipine No NIFEdipine ER 30 MG ER 30 MG ER 30 MG Metoprolol Metoprolol No 1{table QD Metoprolol Succinate Succinate t} Succinate ER 25 MG ER 25 MG ER 25 MG hydroCHLORO hydroCHLORO No 1{table QD hydroCHLOR thiazide 25 thiazide 25 t_in_th Othiazide MG MG e_morni 25 MG ng} metFORMIN metFORMIN No 1{table BID metFORMIN HCl 1000 MG HCl 1000 MG t_with_ HCl 1000 a_meal} MG Omeprazole Omeprazole No QD Omeprazole 20 MG 20 MG 20 MG Levothyroxi Levothyroxi No QD Levothyrox ne Sodium ne Sodium ine Sodium 25 MCG 25 MCG 25 MCG Atorvastati Atorvastati No 1{table QD Atorvastat n Calcium n Calcium t} in Calcium 40 MG 40 MG 40 MG Metoprolol Metoprolol No 1{table QD Metoprolol Succinate Succinate t} Succinate ER 25 MG ER 25 MG ER 25 MG Levothyroxi Levothyroxi No QD Levothyrox ne Sodium ne Sodium ine Sodium 25 MCG 25 MCG 25 MCG metFORMIN metFORMIN No 1{table BID metFORMIN HCl 1000 MG HCl 1000 MG t_with_ HCl 1000 a_meal} MG hydroCHLORO hydroCHLORO No 1{table QD hydroCHLOR thiazide 25 thiazide 25 t_in_th Othiazide MG MG e_morni 25 MG ng} Omeprazole Omeprazole No QD Omeprazole 20 MG 20 MG 20 MG Atorvastati Atorvastati No 1{table QD Atorvastat n Calcium n Calcium t} in Calcium 40 MG 40 MG 40 MG NIFEdipine NIFEdipine No NIFEdipine ER 30 MG ER 30 MG ER 30 MG Metoprolol Metoprolol No 1{table QD Metoprolol Succinate Succinate t} Succinate ER 25 MG ER 25 MG ER 25 MG Levothyroxi Levothyroxi No QD Levothyrox ne Sodium ne Sodium ine Sodium 25 MCG 25 MCG 25 MCG metFORMIN metFORMIN No 1{table BID metFORMIN HCl 1000 MG HCl 1000 MG t_with_ HCl 1000 a_meal} MG hydroCHLORO hydroCHLORO No 1{table QD hydroCHLOR thiazide 25 thiazide 25 t_in_th Othiazide MG MG e_morni 25 MG ng} Omeprazole Omeprazole No QD Omeprazole 20 MG 20 MG 20 MG Atorvastati Atorvastati No 1{table QD Atorvastat n Calcium n Calcium t} in Calcium 40 MG 40 MG 40 MG NIFEdipine NIFEdipine No NIFEdipine ER 30 MG ER 30 MG ER 30 MG glipiZIDE glipiZIDE No 1{table QD glipiZIDE XL 10 MG XL 10 MG t_with_ XL [address]} Lisinopril Lisinopril No 1{table QD Lisinopril 20 MG 20 MG t} 20 MG Lisinopril Lisinopril No 1{table QD Lisinopril 20 MG 20 MG t} 20 MG Fenofibrate Fenofibrate No 1{table QD Fenofibrat 145 MG 145 MG t} e 145 MG Omeprazole Omeprazole No QD Omeprazole 20 MG 20 MG 20 MG Ozempic Ozempic No Ozempic (0.25 or (0.25 or (0.25 or 0.5 0.5 0.5 MG/DOSE) 2 MG/DOSE) 2 MG/DOSE) 2 MG/1.5ML MG/1.5ML MG/1.5ML Atorvastati Atorvastati No 1{table QD Atorvastat n Calcium n Calcium t} in Calcium 40 MG 40 MG 40 MG Levothyroxi Levothyroxi No QD Levothyrox ne Sodium ne Sodium ine Sodium 75 MCG 75 MCG 75 MCG Fenofibrate Fenofibrate No 1{table QD Fenofibrat 145 MG 145 MG t} e 145 MG NIFEdipine NIFEdipine No NIFEdipine ER 30 MG ER 30 MG ER 30 MG hydroCHLORO hydroCHLORO No 1{table QD hydroCHLOR thiazide 25 thiazide 25 t_in_ Othiazide MG MG e_morni 25 MG ng} glipiZIDE glipiZIDE No 1{table QD glipiZIDE XL 10 MG XL 10 MG t_with_ XL [address]} metFORMIN metFORMIN No 1{table BID metFORMIN HCl 1000 MG HCl 1000 MG t_with_ HCl 1000 a_meal} MG Metoprolol Metoprolol No 1{table QD Metoprolol Succinate Succinate t} Succinate ER 25 MG ER 25 MG ER 25 MG Ozempic Ozempic No Ozempic (0.25 or (0.25 or (0.25 or 0.5 0.5 0.5 MG/DOSE) 2 MG/DOSE) 2 MG/DOSE) 2 MG/1.5ML MG/1.5ML MG/1.5ML Diflucan Diflucan No Diflucan 150 MG 150 MG 150 MG Vital Signs Vital Name Observation Time Observation Value Comments Source height 2021-12-15 14:20:00 61 [in_i] Common S [facility] weight 2021-12-15 14:20:00 131.8 [lb_av] Common [facility] temperature 2021-12-15 14:20:00 97.8 [degF] Common [facility] bmi 2021-12-15 14:20:00 24.9 kg/m2 [facility] 2021-12-15 14:20:00 97 % Common S [facility] respiratory rate 2021-12-15 14:20:00 20 /min Comm on [facility] blood pressure 2021-12-15 14:20:00 152 mm[Hg] Common [facility] - systolic [facility] blood pressure 2021-12-15 14:20:00 80 mm[Hg] Common [facility] - diastolic [facility] height 2021-12-15 14:20:00 61 [in_i] Common [facility] weight 2021-12-15 14:20:00 131.8 [lb_av] [facility] temperature 2021-12-15 14:20:00 97.8 [degF] [facility] bmi 2021-12-15 14:20:00 24.9 kg/m2 [facility] S [facility] oximetry 2021-12-15 14:20:00 97 % Common S [facility] respiratory rate 2021-12-15 14:20:00 20 /min Comm on [facility] blood pressure 2021-12-15 14:20:00 152 mm[Hg] Common [facility] - systolic [facility] blood pressure 2021-12-15 14:20:00 80 mm[Hg] Common [facility] - diastolic [facility] height 2021-08-22 10:40:00 61 [in_i] Common [facility] weight 2021-08-22 10:40:00 132 [lb_av] Common S [facility] temperature 2021-08-22 10:40:00 97.5 [degF] Common [facility] bmi 2021-08-22 10:40:00 24.94 kg/m2 Common [facility] oximetry 2021-08-22 10:40:00 99 % Common [facility] respiratory rate 2021-08-22 10:40:00 16 /min Comm on [facility] blood pressure 2021-08-22 10:40:00 128 mm[Hg] Common [facility] - systolic [facility] blood pressure 2021-08-22 10:40:00 70 mm[Hg] Common [facility] - diastolic [facility] Procedures This patient has no known procedures. Encounters Start End Encounter Admission Attending Care Care Encounter Source Date/Time Date/Time Type Type Clinicians Facility Department ID 2022-02-21 Outpatient Caraballo, STLMLC STLMLC [id number] Common 10:45:02 Denia [facility] 2021-12-27 Outpatient Caraballo, STLMLC STLMLC [id number] Common 12:56:00 Denia [facility] 2021-12-13 Outpatient Caraballo, STLMLC STLMLC [id number] Common 09:28:01 Denia [facility] 2021-11-01 Outpatient Caraballo, STLMLC STLMLC [id number] Common 14:39:03 Denia [facility] 2021-08-23 Outpatient Caraballo, STLMLC STLMLC [id number] Common 09:46:33 Denia [facility] 2021-08-22 Outpatient Caraballo, STLMLC STLMLC [id number] Common 09:14:03 Denia [facility] 2022-03-29 2022-03-29 (TEL) STLMLC STLMLC [id number] Co mmon 00:00:00 00:00:00 [facility] 2022-02-212022-02-21 Outpatient DMG [id number] [facility] 00:00:00 00:00:00 [id number] [facility] 2022-02-15 2022-02-15 (TEL) STLMLC STLMLC [id number] Co mmon 00:00:00 00:00:00 [facility] 2022-01-12 2022-01-12 OFFICE STLMLC STLMLC [id number] Co mmon 00:00:00 00:00:00 VISIT [facility] PT - CHI LEVEL 4 [facility] 2022-01-01 2022-01-01 Outpatient DMG [id number] [facility] 00:00:00 00:00:00 [id number] [facility] 2021-12-15 2021-12-15 OFFICE STLMLC STLMLC [id number] Co mmon 00:00:00 00:00:00 VISIT [facility] PT - CHI [address] 2021-12-15 2021-12-15 (MCR WELL) STLMLC STLMLC [id number] Common 00:00:00 00:00:00 Medicare Spiri t Wellness [facility] 2021-12-08 2021-12-08 Outpatient DMG RIKKIG [id number] [facility] 08:03:00 08:03:00 [id number] [facility] 2021-11-10 2021-11-10 (TEL) STLMLC STLMLC [id number] Co mmon 00:00:00 00:00:00 [facility] 2021-11-07 2021-11-07 Outpatient DMG [id number] [facility] 09:00:00 09:00:00 [id number] [facility] 2021-11-03 2021-11-03 (TEL) STLMLC STLMLC [id number] Co mmon 00:00:00 00:00:00 [facility] 2021-08-22 2021-08-22 OFFICE STLMLC STLMLC [id number] Co mmon 00:00:00 00:00:00 VISIT NEW Spir it PT LEVEL 4 [facility] 2021-07-22 2021-07-22 Outpatient DMG [id number] [facility] 09:00:00 09:00:00 [id number] Results This patient has no known results.
--- NOTE | 2022-04-23 14:32 | EDPHYS ---
Physician Documentation [facility] Name: Isabel Henry Age: 76 yrs Sex: Female : 1945 Arrival Date: 04/23/2022 Time: 12:48 Bed IW5 Private MD: Denia Caraballo ED Physician Cesar Stallings HPI: 04/23 14:36 This 76 yrs old Female presents to ER via Unassigned with complaints of Facial ms3 Swelling. 14:36 76-year-old female with past medical history of diabetes, hypothyroidism, hypertension, ms3 hyperlipidemia presents for right-sided facial swelling. Patient states she has a history of parotiditis. Patient states her pain is an 8/10 and aching. Patient denies alleviating or inciting factors. Patient denies fevers, chills, nausea, vomiting. Onset: The symptoms/episode began/occurred 3 day(s) ago. Severity of symptoms: At their worst the symptoms were severe in the emergency department the symptoms are unchanged. Historical: - Allergies: 14:36 Depo-Provera; ss - PMHx: 14:36 diabetes mellitus; Hypothyroidism; Myocardial infarction; Pneumonia; ss ROS: 14:36 Constitutional: Negative for fever, and chills. Neck: Negative for injury, pain, and ms3 swelling, Cardiovascular: Negative for chest pain, and palpitations. Respiratory: Negative for shortness of breath, cough, wheezing, and pleuritic chest pain, Abdomen/GI: Negative for abdominal pain, nausea, vomiting, diarrhea, and constipation, MS/Extremity: Negative for injury and deformity, Skin: Negative for injury, rash, and discoloration. 14:36 ENT: Positive for Facial pain, facial swelling. 14:36 All other systems are negative. Exam: 14:36 Constitutional: This is a well developed, well nourished patient who is awake, alert, ms3 and in no acute distress. Neck: Trachea midline, no cervical lymphadenopathy. Supple, full range of motion without nuchal rigidity, or vertebral point tenderness. No Meningismus. Chest/axilla: Normal chest wall appearance and motion. Nontender with no deformity. Cardiovascular: Regular rate and rhythm with a normal S1 and S2. No gallops, murmurs, or rubs. Normal PMI, no JVD. No pulse deficits. Respiratory: Lungs have equal breath sounds bilaterally, clear to auscultation and percussion. No rales, rhonchi or wheezes noted. No increased work of breathing, no retractions or nasal flaring. Abdomen/GI: Soft, non-tender, with normal bowel sounds. No distension or tympany. No guarding or rebound. No evidence of tenderness throughout. Skin: Warm, dry with normal turgor. Normal color with no rashes, no lesions, and no evidence of cellulitis. 14:36 Head/face: Right parotid tenderness, moderate swelling. Vital Signs: 14:32 BP 183 / 85; Pulse 85; Resp 17; Temp 97.4(O); Pulse Ox 100% on R/A; Weight 58.06 kg; ss Height 5 ft. 0 in. (152.40 cm); Pain 8/10; 14:32 Body Mass Index 25.00 (58.06 kg, 152.40 cm) ss MDM: 14:30 Patient medically screened. ms3 14:36 Data reviewed: vital signs, nurses notes, and as a result, I will discharge patient. ED ms3 course: Discussed labs, CT versus outpatient antibiotics with patient. Patient elects for trial of outpatient antibiotics. Discussed strict return precautions with patient to include fevers, chills, shortness of breath, difficulty swallowing, worsening symptoms, or any other concerns. Patient to follow-up with Dr. Landa in 2 to 3 days. Patient understands agrees with plan. All questions were answered. . Administered Medications: No medications were administered Disposition Summary: 04/23/22 14:32 Discharge Ordered Location: Home ms3 Condition: Stable ms3 Diagnosis - Parotiditis ms3 - Facial Swelling ms3 - Facial pain ms3 - Parotitis ms3 Followup: ms3 - With: Rosalva Landa MD - When: 2 - 3 days - Reason: Recheck today's complaints Discharge Instructions: - Discharge Summary Sheet ms3 - Parotitis ms3 Forms: - Medication Reconciliation Form ms3 - Thank You Letter ms3 - Antibiotic Education ms3 - Prescription Opioid Use ms3 Prescriptions: - Clindamycin HCl 150 mg Oral Capsule - take 3 capsule by ORAL route every 8 hours for 10 days; 90 capsule; Refills: 0, ms3 Product Selection Permitted Signatures: Cora Dodd RN RN ss Stallings, Cesar, DO DO ms3
--- NOTE | 2022-04-23 15:52 | ER ---
Nurse's Notes [facility] Name: Isabel Henry Age: 76 yrs Sex: Female : 1945 Arrival Date: 04/23/2022 Time: 12:48 Bed IW5 Private MD: Denia Caraballo Diagnosis: Facial Swelling;Facial pain;Parotitis Presentation: 04/23 14:32 Chief complaint: Patient states: Swelling to R side of neck. Pt states, "I've had this ss before because of my spit gland." Pt reports it started 3 days ago. Coronavirus screen: Client denies travel out of the [place] in the last 14 days. Ebola Screen: Patient denies exposure to infectious person. Patient denies travel to an Ebola-affected area in the 21 days before illness onset. Initial Sepsis Screen: Does the patient meet any 2 criteria? No. Patient's initial sepsis screen is negative. Does the patient have a suspected source of infection? No. Patient's initial sepsis screen is negative. Risk Assessment: Do you want to hurt yourself or someone else? Patient reports no desire to harm self or others. Onset of symptoms was April 20, 2022. 14:32 Method Of Arrival: Ambulatory ss 14:32 Acuity: DIANELYS 3 ss Historical: - Allergies: 14:36 Depo-Provera; ss - PMHx: 14:36 diabetes mellitus; Hypothyroidism; Myocardial infarction; Pneumonia; ss Vital Signs: 14:32 BP 183 / 85; Pulse 85; Resp 17; Temp 97.4(O); Pulse Ox 100% on R/A; Weight 58.06 kg; ss Height 5 ft. 0 in. (152.40 cm); Pain 8/10; 14:32 Body Mass Index 25.00 (58.06 kg, 152.40 cm) ED Course: 12:48 Patient arrived in ED. am2 12:49 Denia Caraballo is Private Physician. am2 14:06 Cesar Stallings DO is Attending Physician. ms3 14:30 Rosalva Landa MD is Referral Physician. ms3 14:36 Triage completed. ss 14:36 Arm band placed on right wrist. ss 15:24 Sharon Alan, ALBERT is Primary Nurse. iw Administered Medications: No medications were administered Outcome: 14:32 Discharge ordered by ms3 15:24 Discharged to home ambulatory. iw 15:24 Condition: good 15:24 Discharge instructions given to patient, Instructed on discharge instructions, follow up and referral plans. medication usage, Demonstrated understanding of instructions, follow-up care, medications, Prescriptions given X 1. 15:52 Patient left the ED. iw Signatures: Sharon Alan RN RN iw Cora Dodd RN RN ss Chaya Kang Marcus, DO DO ms3
[2022-04-23 16:03] VITALS: BP 183/85; TEMP 97.4; O2SAT 100
== END 2022-04-23 15:52 | disposition home or self-care (01) ==
LOC: ER 12:35
DX: K11.20 Sialoadenitis, unspecified (principal); E11.9 Type 2 diabetes mellitus without complications; Z88.8 Allergy status to other drugs, medicaments and biological substances
CPT/HCPCS: 99282

== ENCOUNTER 2022-10-01 19:24 | Observation (INO) | payer MEDICARE ==
--- OUTSIDE RECORDS SUMMARY | 2022-10-01 19:28 | XMS REPORT | Continuity of Care Document ---
:1945 Author Organization [facility] t Address [address] [place] [address] Care Team Providers Name Role Phone Denia Caraballo Attending Clinician Unavailable Katerina Brewer Attending Clinician Anuja Mcadams Attending Clinician Payers Payer Name Policy Type Policy Number Effective Date Expiration Date Brie kraus [facility] [employer] [id number] 2021 (MEDICARE 00:00:00 REPLACEMENT HMO) Problems Condition Condition Condition Status Onset Resolution Last Treating Co mments Source Name Details Category Date Date Treatment Clinician Date [id number] Allergy to Problem Co mmon ant bite [facility] [id number] Essential Problem Comm on (primary) [facility] hypertensi - [facility] on [facility] [id number] Other Problem Common specified [facility] 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 [facility] [id number] Type 2 Problem Common diabetes [facility] mellitus - [facility] with [facility] long-term current use of insulin [id number] Mixed Problem Common hyperlipid [facility] emia - [facility] [id number] Hypothyroi Problem Com mon dism, [facility] unspecifie - [facility] d type [facility] [id number] Coronary Problem Comm on artery [facility] disease - [facility] involving [facility] coronary Medical artery [facility] [place] heart without angina pectoris Gastroesop GERD Problem Commo n hageal without [facility] reflux esophagiti - [facility] disease s [facility] [id number] Stage 3a Problem Comm on chronic [facility] kidney - [facility] disease [facility] [id number] Type 2 Problem Commo n 9102 diabetes [facility] mellitus - [facility] with other [facility] kidney Medical complicati Center on Allergies, Adverse Reactions, Alerts Allergy Allergy Status Severity Reaction(s) Onset Inactive Treating Comm ents Source Name Type Date Date Clinician medroxyp medroxyp Active Unknown Commo n rogtimothy rogester [facility] one one [facility] Social History Social Habit Start Date Stop Date Quantity Comments Source History of Tobacco Use Co mmon [facility] Sex Assigned At Com mon [facility] Smoking Status Start Date Stop Date Source Former Smoker 2022-02-14 00:00:00 2022-02-14 00:00:00 [facility] Medications Ordered Filled Start Stop Current Ordering Indication Dosage Frequency Signature Comments Components Source Medication Medication Date Date Medication? Clinician (SIG) Name Name NIFEdipine NIFEdipine No NIFEdipine ER 30 MG [...] Diflucan 150 MG 150 MG 150 MG glipiZIDE glipiZIDE No 1{table QD glipiZIDE [...] MG 145 MG t} e 145 MG Vital Signs Vital Name Observation Time Observation Value Comments Source height 2021-12-15 14:20:00 61 [in_i] [facility] weight 2021-12-15 14:20:00 131.8 [lb_av] [facility] temperature 2021-12-15 14:20:00 97.8 [degF] [facility] bmi 2021-12-15 14:20:00 24.9 kg/m2 [facility] oximetry 2021-12-15 14:20:00 97 % [facility] respiratory rate 2021-12-15 14:20:00 20 /min Comm on [facility] blood pressure 2021-12-15 14:20:00 152 mm[Hg] [facility] - systolic [facility] blood pressure 2021-12-15 14:20:00 80 mm[Hg] Common [facility] - diastolic [facility] height 2021-12-15 14:20:00 61 [in_i] [facility] weight 2021-12-15 14:20:00 131.8 [lb_av] [facility] temperature 2021-12-15 14:20:00 97.8 [degF] [facility] bmi 2021-12-15 14:20:00 24.9 kg/m2 [facility] oximetry 2021-12-15 14:20:00 97 % [facility] respiratory rate 2021-12-15 14:20:00 20 /min Comm on [facility] blood pressure 2021-12-15 14:20:00 152 mm[Hg] Common [facility] - systolic [facility] blood pressure 2021-12-15 14:20:00 80 mm[Hg] Common [facility] - diastolic [facility] height 2021-08-22 10:40:00 61 [in_i] Common [facility] weight 2021-08-22 10:40:00 132 [lb_av] Common [facility] temperature 2021-08-22 10:40:00 97.5 [degF] [facility] bmi 2021-08-22 10:40:00 24.94 kg/m2 [facility] oximetry 2021-08-22 10:40:00 99 % [facility] respiratory rate 2021-08-22 10:40:00 16 /min Comm on [facility] blood pressure 2021-08-22 10:40:00 128 mm[Hg] Common [facility] systolic [facility] blood pressure 2021-08-22 10:40:00 70 mm[Hg] Common [facility] diastolic [facility] Procedures This patient has no known procedures. Encounters Start End Encounter Admission Attending Care Care Encounter Source Date/Time Date/Time Type Type Clinicians Facility Department ID 2022-09-17 Outpatient Caraballo, STLMLC STLMLC [id number] Common 09:17:04 Denia [address] [facility] 2022-08-27 Outpatient Caraballo, STLMLC STLC [id number] Common 08:20:01 Denia 75175 [facility] 2022-02-21 Outpatient Caraballo, STLMLC STLMLC [id number] Common 10:45:02 Denia [facility] 2021-12-27 Outpatient Caraballo, STLMLC STLMLC [id number] Common 12:56:00 Denia [facility] 2021-12-13 Outpatient Caraballo, STLMLC STLMLC [id number] Common 09:28:01 Denia [facility] 2021-11-01 Outpatient Caraballo, STLMLC STLMLC [id number] Common 14:39:03 Denia [facility] 2021-08-23 Outpatient Caraballo, STLMLC STLMLC [id number] Common 09:46:33 Denia [facility] 2021-08-22 Outpatient Ilya, STLMLC STLMLC [id number] Common 09:14:03 Denia [facility] 2022-09-29 2022-09-29 Outpatient DMG DM [id number] [facility] 00:00:00 00:00:00 [id number] [facility] 2022-04-13 2022-04-13 Care Katerina [id number]. [id number]. CLAC [id number] [facility] 21:00:00 21:30:00 [employer] [place] [id number] [facility] [id number] 2022-03-29 2022-03-29 (TEL) STLMLC STLMLC [id number] Co mmon 00:00:00 00:00:00 [facility] 2022-02-26 2022-02-26 CAV Anuja [id number]. [id number]. CLAC [id number] [facility] 15:30:00 16:30:00 Pema [id number] [facility] [id number] 2022-02-21 2022-02-21 Outpatient DMG DM [id number] [facility] 00:00:00 00:00:00 [id number] [facility] 2022-02-15 2022-02-15 (TEL) STLMLC STLMLC [id number] Co mmon 00:00:00 00:00:00 [facility] 2022-01-12 2022-01-12 OFFICE STLMLC STLMLC [id number] Co mmon 00:00:00 00:00:00 VISIT [facility] 4 [facility] 2022-01-01 2022-01-01 Outpatient DMG [facility] [id number] [facility] 00:00:00 00:00:00 [id number] [facility] 2021-12-15 2021-12-15 OFFICE STLMLC STLMLC [id number] Co mmon 00:00:00 00:00:00 VISIT Spirit ESTAB PT - [facility] LEVEL 4 [facility] 2021-12-15 2021-12-15 (MCR WELL) STLMLC STLMLC [id number] Common 00:00:00 00:00:00 Medicare [facility] - [facility] 2021-12-08 2021-12-08 Outpatient DMG DM [id number] [facility] 08:03:00 08:03:00 [id number] [facility] 2021-11-10 2021-11-10 (TEL) STLMLC STLMLC [id number] Co mmon 00:00:00 00:00:00 [facility] 2021-11-07 2021-11-07 Outpatient DMG [id number] [facility] 09:00:00 09:00:00 [id number] [facility] l [facility] 2021-11-03 2021-11-03 (TEL) STLMLC STLMLC [id number] Co mmon 00:00:00 00:00:00 [facility] 2021-08-22 2021-08-22 OFFICE STLMLC STLMLC [id number] Co mmon 00:00:00 00:00:00 VISIT NEW Spir it PT LEVEL 4 - [facility] 2021-07-22 2021-07-22 Outpatient DMG [facility] [id number] [facility] 09:00:00 09:00:00 Medica l Group Results This patient has no known results.
[2022-10-01 20:11] LABS: Hematocrit 31.3 % (36.0-45.0); Lymphocytes % 10.9 % (15.3-44.8); MCV 92.3 fL (80-100); MPV 8.2 fL (7.6-11.3); RBC Red Blood Cell Count 3.39 M/uL (3.86-4.86)
[2022-10-01 20:27] LABS: Albumin 3.7 g/dL (3.4-5.0); Bilirubin Direct 0.2 mg/dL (0-0.2); Bilirubin Total 0.6 mg/dL (0.2-1.0); Magnesium 1.4 mg/dL (1.6-2.4); Potassium 4.3 mEq/L (3.5-5.1); Protein, Total 7.3 g/dL (6.4-8.2); Troponin High Sensitivity 12.2 pg/mL (<58.9)
[2022-10-01] MEDS ORDERED: MAGNESIUM SULFATE 1 gm IVPB 1 GM/100 ML BAG IV ONE (20:36)
--- NOTE | 2022-10-01 21:20 | RAD REPORT ---
EXAM DESCRIPTION: RADChest Single View10/01/2022 8:57 pm CLINICAL HISTORY: MALAISE COMPARISON: Chest Single View dated 12/22/2021 TECHNIQUE: Portable AP view of the chest. FINDINGS: The lungs are clear.5 millimeter calcified right lower lung nodule is stable. No pneumotho rax or effusion. The cardiomediastinal contours are stable, with sequelae of prior CABG. IMPRESSION: No acute cardiopulmonary process.
--- NOTE | 2022-10-01 22:55 | ER ---
Nurse's Notes [facility] Name: Isabel Henry Age: 76 yrs Sex: Female : 1945 Arrival Date: 10/01/2022 Time: 19:24 Bed 5 Private MD: Diagnosis: Hypoglycemia, unspecified Presentation: 10/01 19:31 Chief complaint: EMS states: We were called for hypertension and slurred speech, upon jb4 arrival pt was reporting blurry vision and presented with slurred speech, mentioned being diabetic. BGL was was 50 so we gave 150ml of D10 via 18g to RAC. All symptoms resolved, BGL increased to 154. Coronavirus screen: At this time, the client does not indicate any symptoms associated with coronavirus-19. Ebola Screen: No symptoms or risks identified at this time. Initial Sepsis Screen: Does the patient meet any 2 criteria? No. Patient's initial sepsis screen is negative. Does the patient have a suspected source of infection? No. Patient's initial sepsis screen is negative. Risk Assessment: Do you want to hurt yourself or someone else? Patient reports no desire to harm self or others. Onset of symptoms was October 01, 2022. Transition of care: patient was not received from another setting of care. 19:31 Method Of Arrival: EMS: [facility] jb4 19:31 Acuity: DIANELYS 3 jb4 Historical: - Allergies: 19:40 Depo-Provera; jb4 19:40 Vicodin; jb4 - PMHx: 19:40 diabetes mellitus; Hypothyroidism; Myocardial infarction; Pneumonia; jb4 - Immunization history:: Adult Immunizations up to date. - Social history:: Smoking status: Patient/guardian denies using tobacco. Screenin:46 [facility] ED Fall Risk Assessment (Adult) History of falling in the last 3 months, jb4 including since admission No falls in past 3 months (0 pts) Confusion or Disorientation No (0 pts) Score/Fall Risk Level 0 - 2 = Low Risk Oriented to surroundings, Maintained a safe environment. Abuse screen: Denies threats or abuse. Nutritional screening: No deficits noted. Tuberculosis screening: No symptoms or risk factors identified. Assessment: 19:46 General: Appears in no apparent distress. comfortable, Behavior is calm, cooperative, jb4 appropriate for age. Pain: Denies pain. Neuro: Level of Consciousness is awake, alert, obeys commands, Oriented to person, place, time, situation, Automotive Painter are equal bilaterally Moves all extremities. Full function Speech is normal, Facial symmetry appears normal, Pupils are PERRLA. Cardiovascular: Patient's skin is warm and dry. Respiratory: Airway is patent Respiratory effort is even, unlabored, Respiratory pattern is regular, symmetrical. GI: No signs and/or symptoms were reported involving the gastrointestinal system. : No signs and/or symptoms were reported regarding the genitourinary system. EENT: No signs and/or symptoms were reported regarding the EENT system. Derm: Skin is intact, Skin is pink, warm \T\ dry. Musculoskeletal: Circulation, motion, and sensation intact. Range of motion: intact in all extremities. 21:00 Reassessment: Patient appears in no apparent distress at this time. Patient and/or jb4 family updated on plan of care and expected duration. Pain level reassessed. Patient is alert, oriented x 3, equal unlabored respirations, skin warm/dry/pink. 22:00 Reassessment: Patient appears in no apparent distress at this time. Patient and/or jb4 family updated on plan of care and expected duration. Pain level reassessed. Patient is alert, oriented x 3, equal unlabored respirations, skin warm/dry/pink. 23:04 Reassessment: Patient appears in no apparent distress at this time. Patient and/or jb4 family updated on plan of care and expected duration. Pain level reassessed. Patient is alert, oriented x 3, equal unlabored respirations, skin warm/dry/pink. 10/02 00:00 Reassessment: Patient appears in no apparent distress at this time. Patient and/or jb4 family updated on plan of care and expected duration. Pain level reassessed. Patient is alert, oriented x 3, equal unlabored respirations, skin warm/dry/pink. 01:30 Reassessment: Patient appears in no apparent distress at this time. Patient and/or jb4 family updated on plan of care and expected duration. Pain level reassessed. Patient is alert, oriented x 3, equal unlabored respirations, skin warm/dry/pink. Vital Signs: 10/01 19:31 BP 157 / 62; Pulse 75; Resp 16; Temp 98.5(O); Pulse Ox 100% on R/A; Weight 60.78 kg jb4 (R); Height 5 ft. 0 in. (R); Pain 0/10; 21:00 BP 154 / 60; Pulse 80; Resp 16; Pulse Ox 100% on R/A; jb4 22:00 BP 166 / 59; Pulse 73; Resp 16; Pulse Ox 100% on R/A; jb4 23:00 BP 172 / 84; Pulse 79; Resp 16; Pulse Ox 100% on R/A; jb4 23:50 BP 179 / 60; Pulse 80; Resp 16; Pulse Ox 99% on R/A; jb4 10/02 01:00 BP 144 / 67; Pulse 82; Resp 16; Pulse Ox 98% on R/A; jb4 10/01 19:31 Body Mass Index 26.17 (60.78 kg, 152.4 cm) jb4 10/01 19:31 Pain Scale: Adult 4 ED Course: 10/01 19:31 Patient arrived in ED. jb4 19:38 Triage completed. jb4 19:40 Arm band placed on right wrist. jb4 19:44 Cecily Retana FNP-C is PHCP. kb 19:44 Rock Musa MD is Attending Physician. kb 19:46 Gregory Hollis, ALBERT is Primary Nurse. jb4 19:46 Patient has correct armband on for positive identification. Bed in low position. Call jb4 light in reach. Side rails up X 1. Client placed on continuous cardiac and pulse oximetry monitoring. NIBP monitoring applied. 19:46 Maintain EMS IV. Dressing intact. Good blood return noted. Site clean \T\ dry. Gauge \T\ kris 4 site: 18g RAC. 20:06 Basic Metabolic Panel Sent. jb4 20:06 CBC with Diff Sent. jb4 20:06 LFT's Sent. jb4 20:06 Magnesium Sent. jb4 20:06 Troponin HS Sent. jb4 20:59 XRAY Chest (1 view) In Process Unspecified. EDMS 22:55 Marciano Mims MD is Hospitalizing Provider. kb 10/02 02:00 No provider procedures requiring assistance completed. Patient admitted, IV remains in jb4 place. Administered Medications: 10/01 20:35 Drug: Magnesium Sulfate IVPB 1 grams Route: IVPB; Infused Over: 1 hrs; Site: right jb4 antecubital; Medication: 19:46 VIS not applicable for this client. jb4 Outcome: 22:55 Decision to Hospitalize by Provider. kb 10/02 02:00 Admitted to Tele accompanied by nurse, via wheelchair, with chart. jb4 02:01 Condition: stable jb4 02:01 Discharge instructions given to patient, Instructed on the need for admit, Demonstrated understanding of instructions. 02:02 Patient left the ED. jb4 Signatures: Dispatcher [employer] EDMS Cecily Retana, INVENTORY ASSOCIATE-C INVENTORY ASSOCIATE-Gregory Salinas, RN RN jb4 Corrections: (The following items were deleted from the chart) 10/01 19:49 19:31 Chief complaint: EMS states: We were called for hypertension and slurred speech, jb4 upon arrival pt was reporting blurry vision and presented with slurred speech, mentioned being diabetic. BGL was was 50 so we gave 150ml of D10 via 18g to LAC. All symptoms resolved, BGL increased to 154 jb4 10/02 02:02 01:00 BP 112 / 75; Pulse 84bpm; Resp 16bpm; Pulse Ox 99% RA; jb4 jb4
--- NOTE | 2022-10-01 22:55 | EDPHYS ---
Physician Documentation [facility] Name: Isabel Henry Age: 76 yrs Sex: Female : 1945 Arrival Date: 10/01/2022 Time: 19:24 Bed 5 Private MD: ED Physician Rock Musa HPI: 10/02 00:24 This 76 yrs old Female presents to ER via EMS with complaints of hypoglycemia. kb 00:25 The patient or guardian reports altered mental status, hypoglycemia, blurred vision, kb slurred speech that was potentially precipitated by no particular event, with the patient's symptoms witnessed by family, Treatment prior to arrival includes: EMS D10. Onset: The symptoms/episode began/occurred just prior to arrival. Associated signs and symptoms: Pertinent positives: None. Current symptoms: In the emergency department the patient's symptoms have resolved, the patient is alert and fully oriented, has normal speech, has normal responsiveness, has no confusion. The patient has not experienced similar symptoms in the past. The patient has not recently seen a physician. Historical: - Allergies: 10/01 19:40 Depo-Provera; jb4 19:40 Vicodin; jb4 - PMHx: 19:40 diabetes mellitus; Hypothyroidism; Myocardial infarction; Pneumonia; jb4 - Immunization history:: Adult Immunizations up to date. - Social history:: Smoking status: Patient/guardian denies using tobacco. ROS: 10/02 00:23 Constitutional: Negative for fever, chills, and weight loss. kb Neuro: Positive for speech changes, visual changes. Endocrine: Positive for hypoglycemia. All other systems are negative. Exam: 00:23 Constitutional: This is a well developed, well nourished patient who is awake, alert, kb and in no acute distress. Head/Face: Normocephalic, atraumatic. ENT: Moist Mucous membranes Cardiovascular: Regular rate and rhythm with a normal S1 and S2. No gallops, murmurs, or rubs. No pulse deficits. Respiratory: Respirations even and unlabored. No increased work of breathing. Talking in full sentences Abdomen/GI: Soft, non-tender. No distention Skin: Warm, dry with normal turgor. Normal color. MS/ Extremity: Pulses equal, no cyanosis. Neurovascular intact. Full, normal range of motion. Neuro: Awake and alert, GCS 15, oriented to person, place, time, and situation. Moves all extremities. Normal gait. 00:51 ECG was reviewed by the Attending Physician. Vital Signs: 10/01 19:31 BP 157 / 62; Pulse 75; Resp 16; Temp 98.5(O); Pulse Ox 100% on R/A; Weight 60.78 kg jb4 (R); Height 5 ft. 0 in. (R); Pain 0/10; 21:00 BP 154 / 60; Pulse 80; Resp 16; Pulse Ox 100% on R/A; jb4 22:00 BP 166 / 59; Pulse 73; Resp 16; Pulse Ox 100% on R/A; jb4 23:00 BP 172 / 84; Pulse 79; Resp 16; Pulse Ox 100% on R/A; jb4 23:50 BP 179 / 60; Pulse 80; Resp 16; Pulse Ox 99% on R/A; [facility] 10/02 01:00 BP 144 / 67; Pulse 82; Resp 16; Pulse Ox 98% on R/A; [facility] 10/01 19:31 Body Mass Index 26.17 (60.78 kg, 152.4 cm) [facility] 10/01 19:31 Pain Scale: Adult [facility] MDM: 10/01 19:44 Patient medically screened. 10/02 00:24 Data reviewed: vital signs, nurses notes. 00:24 Differential diagnosis: hypoglycemic episode, cva, tia. Consideration of kb Admission/Observation Patient was admitted/placed on observation. Management of patient was discussed with the following: Hospitalist: Luigi FACE WORKER accepts pt for admission under Dr Mims. Historians other than the Patient: EMS: [facility]. Counseling: I had a detailed discussion with the patient and/or guardian regarding: the historical points, exam findings, and any diagnostic results supporting the discharge/admit diagnosis, lab results, the need for further work-up and treatment in the hospital. 10/01 19:48 Order name: Basic Metabolic Panel; Complete Time: 20:27 kb 10/01 19:48 Order name: CBC with Diff; Complete Time: 20:17 kb 10/01 19:48 Order name: LFT's; Complete Time: 20:27 kb 10/01 19:48 Order name: Magnesium; Complete Time: 20:27 kb 10/01 19:48 Order name: Troponin HS; Complete Time: 20:27 kb 10/01 19:57 Order name: Glucose, Ancillary Testing; Complete Time: 19:58 EDMS 10/01 23:20 Order name: Glucose, Ancillary Testing; Complete Time: 23:24 EDMS 10/02 01:29 Order name: Glucose, Ancillary Testing EDMS 10/01 19:48 Order name: XRAY Chest (1 view); Complete Time: 21:28 kb 10/01 19:48 Order name: EKG; Complete Time: 19:48 kb 10/01 19:58 Order name: Diet Regular; Complete Time: 19:59 kb 10/01 19:48 Order name: Cardiac monitoring; Complete Time: 20:06 kb 10/01 19:48 Order name: EKG - Nurse/Tech; Complete Time: 20:06 kb 10/01 19:48 Order name: IV Saline Lock; Complete Time: 19:49 kb 10/01 19:48 Order name: Labs collected and sent; Complete Time: 20:06 kb 10/01 19:48 Order name: O2 Per Protocol; Complete Time: 19:49 kb 10/01 19:48 Order name: O2 Sat Monitoring; Complete Time: 19:49 kb 10/01 22:50 Order name: Blood Glucose Level; Complete Time: 23:10 kb EC:51 Rate is 75 beats/min. Rhythm is regular. QRS [place] is Normal. SD interval is normal at kb 154 msec. QRS interval is normal at 84 msec. QT interval is normal at 460 msec. Administered Medications: 10/01 20:35 Drug: Magnesium Sulfate IVPB 1 grams Route: IVPB; Infused Over: 1 hrs; Site: right 4 antecubital; Disposition Summary: 10/01/22 22:55 Hospitalization Ordered Hospitalization Status: Observation kb Provider: Marciano Mims Location: Telemetry/MedSurg (observation) kb Condition: Stable kb Problem: new kb Symptoms: have improved kb Bed/Room Type: Standard Room Assignment: 411(10/01/22 23:43) kd3 Diagnosis - Hypoglycemia, unspecified kb Forms: - Medication Reconciliation Form kb - SBAR form kb Signatures: Dispatcher [employer] EDCecily Casanova, JOHNATHON BURKETT-Gregory Salinas RN RN jb4 Elo Miller RN RN kd3 Corrections: (The following items were deleted from the chart) 23:43 22:55 kb kd3
--- NOTE | 2022-10-01 23:44 | P.HP ---
Certification for Inpatient Patient admitted to: Observation With expected LOS: <2 Midnights Patient will require the following post-hospital care: None Practitioner: I am a practitioner with admitting privileges, knowledge of patient current condition, hospital course, and medical plan of care. Services: Services provided to patient in accordance with Admission requirements found in Title 42 Section 412.3 of the Code of Federal Regulations Patient History Date of Service: 10/01/22 Reason for admission: Hypoglycemia History of Present Illness: 76-year-old female with history of efs-eirlotw-qlckasofz diabetes, hypertension, hyperlipidemia presents emergency department chief complaint of low blood sugar, she was at home when she noticed blurry vision, slurred speech her blood sugar was measured at 50 on scene she was given D10 and her symptoms resolved, on arrival to ER her blood sugar was 154. Patient reports that she was started on glimepiride approximately 1 week ago by her PCP in addition to the metformin she was taking at home. Last took glimepiride at 1800 on 09/30/2022. BGL did drop to around 60 after eating/d10. Will need to obs overnight for hypoglycemia. Allergies medroxyprogesterone [From Depo-Provera] Adverse Reaction (Verified 12/23/21 03:02) Nausea/Vomiting Home Medications: Fenofibrate [Tricor] 48 mg PO DAILY #30 tab 12/23/21 Metformin ER [Glucophage ER*] 1,000 mg PO BIDWM 12/23/21 Metoprolol Succinate [Toprol Xl*] 25 mg PO DAILY 12/23/21 hydroCHLOROthiazide [Hydrodiuril*] 25 mg PO DAILY 12/23/21 - Past Medical/Surgical History Diabetic: Yes -: Type 2 Diabetes, Insulin-Dependent -: Hypertension -: Hyperlipidemia -: CAD -: Hypothyroidism -: CVA -: Triple Bypass -: Cholecystecomy -: L knee replacement Psychosocial/ Personal History: Patient lives with her 2 sons. - Family History Father -: Lung disease, Cancer Mother -: Diabetes - Social History Smoking Status: Former smoker Alcohol use: No CD- Drugs: No Caffeine use: Yes Review of Systems Unremarkable Physical Examination - Physical Exam General: Alert, In no apparent distress, Oriented x3 HEENT: Atraumatic, PERRLA, Mucous membr. moist/pink, EOMI, Sclerae nonicteric Neck: Supple, 2+ carotid pulse no bruit, No LAD, Without JVD or thyroid abnormality Respiratory: Clear to auscultation bilaterally, Normal air movement Cardiovascular: Regular rate/rhythm, Normal S1 S2 Gastrointestinal: Normal bowel sounds, No tenderness Musculoskeletal: No tenderness Integumentary: No rashes Neurological: Normal gait, Normal speech, Normal strength at 5/5 x4 extr, Normal tone, Normal affect - Studies Laboratory Data (last 24 hrs) 10/01/22 19:52: WBC 9.60, Hgb 11.0 L, Hct 31.3 L, Plt Count 325 10/01/22 19:52: Sodium 135 L, Potassium 4.3, BUN 23 H, Creatinine 1.49 H, Glucose 111 H, Magnesium 1.4 L, Total Bilirubin 0.6, AST 19, ALT 22, Alkaline Phosphatase 53 Assessment and Plan - Plan Assessment: Diabetes mellitus type [id number]-qaewhan-yllkynldn with hypoglycemia Hypertension Hyperlipidemia Plan: Diabetes mellitus type 0dix-[id number]-omsiqoszx with hypoglycemia Hold glimepiride, monitor Accu-Chek every 4 hours for tonight. She is eating now. A1c in the morning. Recently started on glimepiride by PCP, will recommend discontinuation for now. Hypertension Hyperlipidemia Continue home medications. DVT PPX: Lovenox Code status:full Discharge Plan: Home Plan to discharge in: 24 Hours - Advance Directives Does patient have a Living Will: No Does patient have a Durable POA for Healthcare: No - Code Status/Comfort Care Code Status Assessed: Yes (Full code) Critical Care: No Time Spent Managing Pts Care (In Minutes): 55
[2022-10-02] MEDS ORDERED: D50W 25 GM/50 ML SYRINGE IV PRN (02:20)
[2022-10-02 02:38] VITALS: O2SAT 99
[2022-10-02 02:56] VITALS: BMI 26.2
[2022-10-02 06:42] LABS: Absolute Lymphocytes (CBC) 1.3 K/uL (0.7-4.9); Hematocrit 31.8 % (36.0-45.0); Lymphocytes % 15.5 % (15.3-44.8); MCV 91.6 fL (80-100); MPV 8.6 fL (7.6-11.3); RBC Red Blood Cell Count 3.47 M/uL (3.86-4.86)
[2022-10-02 07:00] LABS: Thyroid Stimulating Hormone 7.5 uIU/mL (0.358-3.740)
[2022-10-02 08:59] VITALS: TEMP 97.7
[2022-10-02] MEDS ORDERED: hydroCHLOROthiazide 25 MG TAB PO SCH (09:00)
[2022-10-02] MEDS ORDERED: ENOXAPARIN 30 MG/0.3 ML SQ SCH (09:00)
[2022-10-02] MEDS ORDERED: lisinopriL 20 MG TAB PO SCH (09:00)
[2022-10-02] MEDS ORDERED: METOPROLOL XL 25 MG TAB PO SCH (09:00)
--- NOTE | 2022-10-02 11:24 | P.DS ---
Admission Date: 10/02/22 Discharge Date: 10/02/22 Disposition: ROUTINE DISCHARGE Discharge Condition: GOOD Reason for Admission: Hypoglycemia Brief History of Present Illness: 76-year-old female with history of hpv-rczjqeo-ecdvceyre diabetes, hypertension, hyperlipidemia presents emergency department chief complaint of low blood sugar, she was at home when she noticed blurry vision, slurred speech her blood sugar was measured at 50 on scene she was given D10 and her symptoms resolved, on arrival to ER her blood sugar was 154. Patient reports that she was started on glimepiride approximately 1 week ago by her PCP in addition to the metformin she was taking at home. Last took glimepiride at 1800 on 09/30/2022. BGL did drop to around 60 after eating/d10. Will need to obs overnight for hypoglycemia. Hospital Course: Problem List: Diabetes mellitus type [id number]-[id number] with hypoglycemia Hypertension Hyperlipidemia Patient presented with low blood sugar (g), blurry vision and slurred speech. Patient reports that she was started on glimepiride approximately 1 week ago by her PCP in addition to the metformin she was taking at home. She also rep orted recent elevated blood pressure readings. In the ED and during her hospitalization, her BP was in the normal range and occasionally up to 150- 160/60s. Symptoms resolved with improvement of her hypoglycemia. Her glucose level did dip slightly in ED so she was admitted for further monitoring. She tolerated her diet, symptoms remained resolved, and glucose levels did not drop any further. She was monitored overnight and was deemed stable for discharge home the following day. Recommend to discontinue glimepiride. Continue other home medications as prescribed Follow up: PCP within 1 week Physical Exam: GEN: Alert, oriented, NAD HEENT: Normal conjunctiva, sclera anicteric CV: Regular rate and rhythm, no edema Pulm: Nonlabored respirations on room air ABD: Soft, nontender, nondistended Neuro: Normal speech, normal affect Vital Signs/Physical Exam: Temp Pulse Resp BP Pulse Ox 97.7 F 90 18 183/84 H 95 10/02/22 08:00 10/02/22 09:36 10/02/22 08:00 10/02/22 09:36 10/02/22 08:00 Laboratory Data at Discharge: WBC 8.60 thou/uL (4.3-10.9) 10/02/22 05:25 Hgb 10.9 g/dL (12.0-15.0) L 10/02/22 05:25 Hct 31.8 % (36.0-45.0) L 10/02/22 05:25 Plt Count 315 thou/uL (152-406) 10/02/22 05:25 Sodium 135 mEq/L (136-145) L 10/02/22 05:25 Potassium 4.0 mEq/L (3.5-5.1) 10/02/22 05:25 BUN 23 mg/dL (7-18) H 10/02/22 05:25 Creatinine 1.31 mg/dL (0.55-1.02) H 10/02/22 05:25 Glucose 178 mg/dL (74-106) H 10/02/22 05:25 Magnesium 1.4 mg/dL (1.6-2.4) L 10/01/22 19:52 Total Bilirubin 0.6 mg/dL (0.2-1.0) 10/01/22 19:52 AST 19 U/L (15-37) 10/01/22 19:52 ALT 22 U/L (13-56) 10/01/22 19:52 Alkaline Phosphatase 53 U/L (45-117) 10/01/22 19:52 Home Medications: Metformin ER [Glucophage ER*] 1,000 mg PO BIDWM 12/23/21 Metoprolol Succinate [Toprol Xl*] 25 mg PO DAILY 12/23/21 hydroCHLOROthiazide [Hydrodiuril*] 25 mg PO DAILY 12/23/21 Atorvastatin Calcium [Lipitor] 40 mg PO BEDTIME 10/02/22 Fenofibrate [Tricor*] 160 mg PO DAILY 10/02/22 Lisinopril [Zestril] 40 mg PO DAILY 10/02/22 Physician Discharge Instructions: Patient presented with low blood sugar (g), blurry vision and slurred speech. Patient reports that she was started on glimepiride approximately 1 week ago by her PCP in addition to the metformin she was taking at home. She also reported recent elevated blood pressure readings. In the ED and during her hospitalization, her BP was in the normal range and occasionally up to 150- 160/60s. Symptoms resolved with improvement of her hypoglycemia. Her glucose level did dip slightly in ED so she was admitted for further monitoring. She tolerated her diet, symptoms remained resolved, and glucose levels did not drop any further. She was monitored overnight and was deemed stable for discharge home the following day. Recommend to discontinue glimepiride. Continue other home medications as prescribed Follow up: PCP within 1 week Time spent managing pt's care (in minutes): 45
[2022-10-02 13:51] VITALS: BP 143/63
--- NOTE | 2022-10-03 16:01 | EKG ---
Test Date: 2022-10-01 Test Time: 20:03:30 [employer] Operator: RUTH MEASUREMENT RESULTS: Intervals: Rate: 75 ND: 154 QRSD: 84 QT: 412 QTc: 460 Tow: P: 63 ND: 154 QRS: 34 T: 21 INTERPRETIVE STATEMENTS: Normal sinus rhythm Normal ECG Compared to ECG 09/14/2022 14:37:17 No significant changes Electronically Signed On 10-03-22 15:57:47 CDT by Magdy Sinclair
== END 2022-10-02 16:40 | disposition home or self-care (01) ==
LOC: ER 19:24 → 4TH 10-02 01:21
PROVIDERS: ADMIT Hospitalist; ATTEND Hospitalist
DX: E11.649 Type 2 diabetes mellitus with hypoglycemia without coma (principal); I10 Essential (primary) hypertension; E78.5 Hyperlipidemia, unspecified
CPT/HCPCS: 85025 ×2; 80048 ×2; 36415; 83735; 82947 ×6; 80076; 84443; 83036; 84484; 84439; 71045; J3475; J1650; 93005; G0378

== ENCOUNTER 2024-01-25 09:10 | Emergency (ER) | payer MEDICARE ==
--- OUTSIDE RECORDS SUMMARY | 2024-01-25 09:14 | XMS REPORT | Continuity of Care Document ---
Author Name Unknown Address [address] [facility]. [address] [place] [address] [facility] thconnect Address [address] [facility] [address] [place] [address] Care Team Providers Care Automatic Teller Machine Servicer Name Role Phone Denia Caraballo Attending Clinician Unavailable Katerina Brewer Attending Clinician [phone] Anuja Mcadams Attending Clinician Payers Payer Name Policy Type Policy Number Effective Date Expirati on Date Source [facility] (MEDICARE REPLACEMENT O) [id number] 2021 00:00:00 Problems Condition Name Condition Details Condition Category Status Onset Date Resolution Date Last Treatment Date Treating Clinician Comments Source [id number] Allergy to ant bite Problem Common [facility] [id number] Hypoglycem ia Problem Common [facility] [id number] Salivary stone Problem Common [facility] [id number] Sinusitis chronic, frontal Problem [facility] [id number] Hypertensi ve emergency Problem [facility] [id number] Essential (primary) hypertensi on Problem [facility] [id number] Other specified hearing loss of both ears Problem [facility] [id number] Type 2 diabetes mellitus with hyperglyce kristina, without long-term current use of insulin Problem [facility] [id number] Mixed hyperlipid emia Problem [facility] [id number] Hypothyroi dism, unspecifie d type Problem [facility] [id number] Coronary artery disease involving hoonah coronary artery of [place]oon[place] heart without angina pectoris Problem [facility] Gastroesop hageal reflux disease GERD without esophagiti s Problem [facility] [id number] Stage 3a chronic kidney disease Problem [facility] [id number] Type 2 diabetes mellitus with other diabetic kidney complicati on Problem [facility] Allergies, Adverse Reactions, Alerts Allergy Name Allergy Type Status Severity Reaction(s) Onset Date Inactive Date Treating Clinician Comments Source medroxyp rogester one medroxyp rogester one Active Unknown [facility] Social History Social Habit Start Date Stop Date Quantity Comments Source History of Tobacco Use [facility] Sex Assigned At [facility] Smoking Status Start Date Stop Date Source Former Smoker 2023-11-05 00:00:00 2023-11-05 00:00:00 [facility] Medications Ordered Medication Name Filled Medication Name Start Date Stop Date Current Medication? Ordering Clinician Indication Dosage Frequency Signature (SIG) Comments Components Source Clobetasol Propionate 0.05 % Clobetasol Propionate 0.05 % 11-04 00:00: 00 No 1{appli cation} BID Clobetasol Propionate 0.05 % hydroCHLORO thiazide 25 MG hydroCHLORO thiazide 25 MG No 1{table t_in_th e_morni ng} QD hydroCHLOR Othiazide 25 MG Atorvastati n Calcium 40 MG Atorvastati n Calcium 40 MG No 1{table t} QD Atorvastat in Calcium 40 MG Lisinopril 40 MG Lisinopril 40 MG No 1{table t} QD Lisinopril 40 MG Fenofibrate 160 MG Fenofibrate 160 MG No 1{table t} QD Fenofibrat e 160 MG Metoprolol Succinate ER 200 MG Metoprolol Succinate ER 200 MG No 1{table t} QD Metoprolol Succinate ER 200 MG metFORMIN HCl 500 MG metFORMIN HCl 500 MG No 1{table t_with_ a_meal} BID metFORMIN HCl 500 MG Levothyroxi ne Sodium 112 MCG Levothyroxi ne Sodium 112 MCG No QD Levothyrox ine Sodium 112 MCG Vital Signs Vital Name Observation Time Observation Value Comments Brie kraus height 2023-11-05 13:40:00 61 [in_i] Commo n [facility] weight 2023-11-05 13:40:00 134.4 [lb_av] Co mmon [facility] temperature 2023-11-05 13:40:00 96.4 [degF] Com [facility] bmi 2023-11-05 13:40:00 25.39 kg/m2 Comm on [facility] oximetry 2023-11-05 13:40:00 98 % Commo n [facility] respiratory rate 2023-11-05 13:40:00 16 /min [facility] blood pressure systolic 2023-11-05 13:40:00 164 mm[Hg] [facility] blood pressure diastolic 2023-11-05 13:40:00 68 mm[Hg] [facility] height 2023-07-23 14:40:00 61 [in_i] Commo n [facility] weight 2023-07-23 14:40:00 133 [lb_av] Comm on [facility] temperature 2023-07-23 14:40:00 97.3 [degF] Com [facility] bmi 2023-07-23 14:40:00 25.13 kg/m2 Comm on [facility] oximetry 2023-07-23 14:40:00 98 % Commo n [facility] respiratory rate 2023-07-23 14:40:00 16 /min [facility] blood pressure systolic 2023-07-23 14:40:00 146 mm[Hg] Common [facility] blood pressure diastolic 2023-07-23 14:40:00 74 mm[Hg] Common [facility] height 2023-07-23 15:00:00 61 [in_i] Commo n [facility] weight 2023-07-23 15:00:00 133 [lb_av] Comm on [facility] temperature 2023-07-23 15:00:00 97.3 [degF] Com mon [facility] bmi 2023-07-23 15:00:00 25.13 kg/m2 Comm on [facility] oximetry 2023-07-23 15:00:00 98 % Commo n [facility] respiratory rate 2023-07-23 15:00:00 16 /min [facility] blood pressure systolic 2023-07-23 15:00:00 146 mm[Hg] [facility] blood pressure diastolic 2023-07-23 15:00:00 74 mm[Hg] Common [facility] height 2023-01-07 15:40:00 61 [in_i] Commo n [facility] weight 2023-01-07 15:40:00 133.8 [lb_av] Co mmon [facility] temperature 2023-01-07 15:40:00 96.8 [degF] Com mon [facility] bmi 2023-01-07 15:40:00 25.28 kg/m2 Comm on [facility] oximetry 2023-01-07 15:40:00 97 % Commo n [facility] respiratory rate 2023-01-07 15:40:00 16 /min Common [facility] blood pressure systolic 2023-01-07 15:40:00 170 mm[Hg] Common [facility] blood pressure diastolic 2023-01-07 15:40:00 68 mm[Hg] Common [facility] height 2023-01-07 14:40:00 61 [in_i] Commo n [facility] weight 2023-01-07 14:40:00 133.8 [lb_av] Co mmon [facility] temperature 2023-01-07 14:40:00 96.8 [degF] Com [facility] bmi 2023-01-07 14:40:00 25.28 kg/m2 Comm on [facility] oximetry 2023-01-07 14:40:00 97 % Commo n [facility] respiratory rate 2023-01-07 14:40:00 16 /min Common [facility] blood pressure systolic 2023-01-07 14:40:00 170 mm[Hg] Common [facility] blood pressure diastolic 2023-01-07 14:40:00 68 mm[Hg] Common [facility] height 2022-11-07 15:40:00 61 [in_i] Commo n [facility] weight 2022-11-07 15:40:00 134.6 [lb_av] Co mmon [facility] temperature 2022-11-07 15:40:00 97.3 [degF] Com [facility] bmi 2022-11-07 15:40:00 25.43 kg/m2 Comm on [facility] oximetry 2022-11-07 15:40:00 98 % Commo n [facility] respiratory rate 2022-11-07 15:40:00 16 /min Common [facility] blood pressure systolic 2022-11-07 15:40:00 162 mm[Hg] Common [facility] blood pressure diastolic 2022-11-07 15:40:00 73 mm[Hg] Common [facility] height 2022-10-03 15:00:00 61 [in_i] Commo n [facility] weight 2022-10-03 15:00:00 132.4 [lb_av] Co mmon [facility] temperature 2022-10-03 15:00:00 97.6 [degF] Com mon [facility] bmi 2022-10-03 15:00:00 25.01 kg/m2 Comm on [facility] oximetry 2022-10-03 15:00:00 96 % Commo n [facility] respiratory rate 2022-10-03 15:00:00 16 /min Common [facility] blood pressure systolic 2022-10-03 15:00:00 144 mm[Hg] Common [facility] blood pressure diastolic 2022-10-03 15:00:00 85 mm[Hg] Common [facility] height 2022-09-26 15:00:00 61 [in_i] Commo n [facility] weight 2022-09-26 15:00:00 132.4 [lb_av] Co mmon [facility] temperature 2022-09-26 15:00:00 97.6 [degF] Com mon [facility] bmi 2022-09-26 15:00:00 25.01 kg/m2 Comm on [facility] oximetry 2022-09-26 15:00:00 97 % Commo n [facility] respiratory rate 2022-09-26 15:00:00 16 /min Common [facility] blood pressure systolic 2022-09-26 15:00:00 168 mm[Hg] Common [facility] blood pressure diastolic 2022-09-26 15:00:00 80 mm[Hg] Common [facility] height 2022-09-19 14:00:00 61 [in_i] Commo n [facility] weight 2022-09-19 14:00:00 134 [lb_av] Comm on [facility] temperature 2022-09-19 14:00:00 97.8 [degF] Com [facility] bmi 2022-09-19 14:00:00 25.32 kg/m2 Comm on [facility] oximetry 2022-09-19 14:00:00 98 % Commo n [facility] respiratory rate 2022-09-19 14:00:00 16 /min [facility] blood pressure systolic 2022-09-19 14:00:00 184 mm[Hg] Common [facility] blood pressure diastolic 2022-09-19 14:00:00 92 mm[Hg] Common [facility] height 2022-09-14 14:20:00 61 [in_i] Commo n [facility] weight 2022-09-14 14:20:00 135.4 [lb_av] Co [facility] temperature 2022-09-14 14:20:00 98.0 [degF] Com mon [facility] bmi 2022-09-14 14:20:00 25.58 kg/m2 Comm on [facility] oximetry 2022-09-14 14:20:00 94 % Commo n [facility] respiratory rate 2022-09-14 14:20:00 16 /min [facility] blood pressure systolic 2022-09-14 14:20:00 224 mm[Hg] Common [facility] blood pressure diastolic 2022-09-14 14:20:00 86 mm[Hg] Common [facility] height 2022-08-27 08:40:00 61 [in_i] Commo n [facility] weight 2022-08-27 08:40:00 125 [lb_av] Comm on [facility] bmi 2022-08-27 08:40:00 23.62 kg/m2 Comm on [facility] height 2021-12-28 10:40:00 61 [in_i] Commo n [facility] weight 2021-12-28 10:40:00 129.4 [lb_av] Co mmon [facility] temperature 2021-12-28 10:40:00 98.4 [degF] Com mon [facility] bmi 2021-12-28 10:40:00 24.45 kg/m2 Comm on [facility] oximetry 2021-12-28 10:40:00 98 % Commo n [facility] respiratory rate 2021-12-28 10:40:00 16 /min Common [facility] blood pressure systolic 2021-12-28 10:40:00 128 mm[Hg] Common [facility] blood pressure diastolic 2021-12-28 10:40:00 76 mm[Hg] [facility] height 2021-12-15 14:20:00 61 [in_i] Commo n [facility] weight 2021-12-15 14:20:00 131.8 [lb_av] Co mmon [facility] temperature 2021-12-15 14:20:00 97.8 [degF] Com mon [facility] bmi 2021-12-15 14:20:00 24.9 kg/m2 Commo n [facility] oximetry 2021-12-15 14:20:00 97 % Commo n [facility] respiratory rate 2021-12-15 14:20:00 20 /min Common [facility] blood pressure systolic 2021-12-15 14:20:00 152 mm[Hg] Common [facility]iri [facility] blood pressure diastolic 2021-12-15 14:20:00 80 mm[Hg] Common [facility] height 2021-12-15 14:20:00 61 [in_i] Commo n [facility] weight 2021-12-15 14:20:00 131.8 [lb_av] Co mmon [facility] temperature 2021-12-15 14:20:00 97.8 [degF] Com mon [facility] bmi 2021-12-15 14:20:00 24.9 kg/m2 Commo n [facility] oximetry 2021-12-15 14:20:00 97 % Commo n [facility] respiratory rate 2021-12-15 14:20:00 20 /min [facility] blood pressure systolic 2021-12-15 14:20:00 152 mm[Hg] Common [facility] blood pressure diastolic 2021-12-15 14:20:00 80 mm[Hg] [facility] height 2021-08-22 10:40:00 61 [in_i] Commo n [facility] weight 2021-08-22 10:40:00 132 [lb_av] Comm on [facility] temperature 2021-08-22 10:40:00 97.5 [degF] Com mon [facility] bmi 2021-08-22 10:40:00 24.94 kg/m2 Comm on [facility] oximetry 2021-08-22 10:40:00 99 % Commo n [facility] respiratory rate 2021-08-22 10:40:00 16 /min [facility] blood pressure systolic 2021-08-22 10:40:00 128 mm[Hg] [facility] blood pressure diastolic 2021-08-22 10:40:00 70 mm[Hg] [facility] Encounters Start Date/Time End Date/Time Encounter Type Admission Type Attending Clinicians Care Facility Care Department Encounter ID Source 2023-12-23 09:38:01 Outpatient [facility] [id number] [facility] 2023-11-25 15:59:00 Out[facility] [id number] [facility] 2023-11-05 13:36:01 Outpatient Denia [facility]aballo [facility] [id number] [facility] 2023-11-01 10:07:00 Outpatient CaraballoDenia fiore [facility] [id number] [facility] 2023-07-19 09:03:00 Outpatient CaraballoDenia [facility] [id number] [facility] 2023-03-28 09:41:02 Outpatient CaraballoDenia fiore [facility] [id number] [facility] 2023-01-07 07:32:00 Outpatient CaraballoDenia [facility] [id number] [facility] 2022-11-22 16:05:01 Outpatient CaraballoDenia [facility] [id number] [facility] 2022-11-05 10:04:01 Outpatient CaraballoDenia fiore [facility] [id number] [facility] 2022-09-17 09:17:04 Outpatient CaraballoDenia fiore [facility] [id number] [facility] 2022-08-27 08:20:01 Outpatient CaraballoDenia fiore [facility] [id number] [facility] 2022-02-21 10:45:02 Outpatient CaraballoDenia fiore [facility] [id number] [facility] 2021-12-27 12:56:00 Outpatient CaraballoDenia [facility] [id number] [facility] 2021-12-13 09:28:01 Outpatient CaraballoDenia [facility] [id number] [facility] 2021-11-01 14:39:03 Outpatient CaraballoSalmai [facility] [id number] [facility] 2021-08-23 09:46:33 Outpatient Caraballo Denia [facility] [id number] [facility] 2021-08-22 09:14:03 Outpatient Denia Caraballo [facility] [id number] [facility] 2023-11-25 00:00:00 2023-11-25 00:00:00 (TEL) [facility] [id number] [facility] 2023-11-05 00:00:00 2023-11-05 00:00:00 OFFICE VISIT ESTAB PT LEVEL 4 [facility] [id number] [facility] 2023-10-28 00:00:00 2023-10-28 00:00:00 (TEL) [facility]C [facility] [id number] [facility] 2023-09-19 00:00:00 2023-09-19 00:00:00 (TEL) [facility]C [facility] [id number] [facility] 2023-08-07 00:00:00 2023-08-07 00:00:00 (TEL) [facility]C [facility] [id number] [facility] 2023-07-29 00:00:00 2023-07-29 00:00:00 (TEL) [facility]C [facility] [id number] [facility] 2023-07-23 00:00:00 2023-07-23 00:00:00 OFFICE VISIT ESTAB PT LEVEL 4 [facility] [id number] [facility] 2023-07-23 00:00:00 2023-07-23 00:00:00 SUB ANNUAL [facility] WELLNESS VISIT ST[facility]C ST[facility] [id number] [facility] 2023-07-03 00:00:00 2023-07-03 00:00:00 (TEL) STL[facility]C [facility] [id number] [facility] 2023-07-02 00:00:00 2023-07-02 00:00:00 (TEL) [facility]C [facility] [id number] [facility] 2023-03-20 00:00:00 2023-03-20 00:00:00 (TEL) [facility]C [facility] [id number] [facility] 2023-03-19 00:00:00 2023-03-19 00:00:00 (TEL) STL[facility]C [facility] [id number] [facility] 2023-01-07 00:00:00 2023-01-07 00:00:00 OFFICE VISIT ESTAB PT LEVEL 4 [facility] [id number] [facility] 2023-01-07 00:00:00 2023-01-07 00:00:00 SUB ANNUAL [facility] WELLNESS VISIT [facility]C ST[facility] [id number] [facility] 2022-11-07 00:00:00 2022-11-07 00:00:00 OFFICE VISIT ESTAB PT LEVEL 4 [facility] [id number] [facility] 2022-10-03 00:00:00 2022-10-03 00:00:00 OFFICE VISIT ESTAB PT LEVEL 4 [facility] [id number] [facility] 2022-09-29 00:00:00 2022-09-29 00:00:00 Outpatient DMG DM [id number] [facility] 2022-09-26 00:00:00 2022-09-26 00:00:00 OFFICE VISIT ESTAB PT LEVEL 2 [facility] [id number] [facility] 2022-09-19 00:00:00 2022-09-19 00:00:00 OFFICE VISIT ESTAB PT LEVEL 5 [facility] [id number] [facility] 2022-09-14 00:00:00 2022-09-14 00:00:00 OFFICE VISIT ESTAB PT LEVEL 4 [facility] [id number] [facility] 2022-08-27 00:00:00 2022-08-27 00:00:00 OFFICE VISIT ESTAB PT LEVEL 3 [facility] [id number] [facility] 2022-08-27 00:00:00 2022-08-27 00:00:00 (TEL) [facility]C [facility] [id number] [facility] 2022-08-27 00:00:00 2022-08-27 00:00:00 (TEL) STLMLC [facility] [id number] [facility] 2022-04-13 21:00:00 2022-04-13 21:30:00 Care OnNadege Borges Caccamise [id number] 675 [facility] 2022-03-29 00:00:00 2022-03-29 00:00:00 (TEL) STLMLC STL[facility]C [id number] [facility] 2022-02-26 15:30:00 2022-02-26 16:30:00 CAV Anuja Mcadams [id number] [facility] 2022-02-21 00:00:00 2022-02-21 00:00:00 Outpatient DMG DM [id number] [facility] 2022-02-15 00:00:00 2022-02-15 00:00:00 (TEL) STLMLC STL[facility]C [id number] [facility] 2022-01-12 00:00:00 2022-01-12 00:00:00 OFFICE VISIT ESTAB PT LEVEL 4 [facility] [id number] [facility] 2022-01-01 00:00:00 2022-01-01 00:00:00 Outpatient DMG DMG [id number] [facility] 2021-12-28 00:00:00 2021-12-28 00:00:00 (HOSP F/U) Hospital Follow Up STLMLC STL[facility]C [id number] [facility] 2021-12-25 00:00:00 2021-12-25 00:00:00 (TEL) STLMLC STL[facility]C [id number] [facility] 2021-12-15 00:00:00 2021-12-15 00:00:00 OFFICE VISIT ESTAB PT LEVEL 4 [facility]C ST[facility]C [id number] [facility] 2021-12-15 00:00:00 2021-12-15 00:00:00 (MCR WELL) Medicare Wellness STLMLC STL[facility]C [id number] [facility] 2021-12-08 08:03:00 2021-12-08 08:03:00 Outpatient DMG DMG [id number] [facility] 2021-11-10 00:00:00 2021-11-10 00:00:00 (TEL) STLMLC STLMLC [id number] [facility] 2021-11-07 09:00:00 2021-11-07 09:00:00 Outpatient DMG DMG [id number] [facility] 2021-11-03 00:00:00 2021-11-03 00:00:00 (TEL) STLMLC STL[facility]C [id number] [facility] 2021-08-22 00:00:00 2021-08-22 00:00:00 OFFICE VISIT NEW PT LEVEL 4 [facility]C ST[facility]C [id number] [facility] 2021-07-22 09:00:00 2021-07-22 09:00:00 Outpatient DMG DMG [id number] [facility] Results Test Description Test Time Test Comments Results Result Co mments Source HEMOGLOBIN [id number] 00:00:00* Test Item Value Reference Range Interpretation Comme nts HEMOGLOBIN A1c (test code = 4548-4) 6.9 % See_Comment H [Automated COFCOa ge] The system which generated this result transmitted reference range: 4.2-5.6 %. The reference range was not used to interpret this result as normal/abnormal. LIPID PANEL WITH REFLEX DIRECT [id number] 00:00:00* Test Item Value Reference Range Interpretation Comme nts CALC LDL CHOL (test code = 02177-3) 115 MG/DL See_Comment H [Automated messa ge] The system which generated this result transmitted reference range: <100 MG/DL. The reference range was not used to interpret this result as normal/abnormal. CHOLESTEROL (test code = 2093-3) 197 MG/DL See_Comment [Automated messa ge] The system which generated this result transmitted reference range: <200 MG/DL. The reference range was not used to interpret this result as normal/abnormal. HDL CHOLESTEROL (test code = 2085-9) 47 MG/DL See_Comment [Automated messa ge] The system which generated this result transmitted reference range: >39 MG/DL. The reference range was not used to interpret this result as normal/abnormal. RISK RATIO LDL/HDL (test code = 76826-1) 2.45 RATIO See_Comment [Automated message] The system which generated this result transmitted reference range: <3.22 RATIO. The reference range was not used to interpret this result as normal/abnormal. TRIGLYCERIDES (test code = 2571-8) 230 MG/DL See_Comment H [Automated messa ge] The system which generated this result transmitted reference range: <150 MG/DL. The reference range was not used to interpret this result as normal/abnormal. TSH + FREE T4 [id number] 00:00:00* Test Item Value Reference Range Interpretation Comme nts FREE T4 (THYROXINE) (test code = 3024-7) 1.07 NG/DL See_Comment [Automated message] The system which generated this result transmitted reference range: 0.80-1.90 NG/DL. The reference range was not used to interpret this result as normal/abnormal. TSH, THIRD GENERATION (test code = 48337-4) 7.380 UIU/ML See_Comment H [Automated COFCOa ge] The system which generated this result transmitted reference range: 0.400-4.100 UIU/ML. The reference range was not used to interpret this result as normal/abnormal. ALBUMIN/CREATININE RATIO, RANDOM [id number] 00:00:00* Test Item Value Reference Range Interpretation Comme nts ALBUMIN, URINE, RANDOM (test code = 15355-4) 1.4 MG/DL NOT ESTAB MG/DL CALC ALBUMIN/CREAT, RND (test code = 72840-2) 17 MG/G See_Comment [Automated messa ge] The system which generated this result transmitted reference range: <30 MG/G. The reference range was not used to interpret this result as normal/abnormal. CREATININE, URINE, CONC. (test code = 2161-8) 83.3 MG/DL NOT ESTAB MG/DL COMPREHENSIVE METABOLIC [id number] 00:00:00* Test Item Value Reference Range Interpretation Comme nts ALBUMIN (test code = 1751-7) 4.9 G/DL See_Comment [Automated messa ge] The system which generated this result transmitted reference range: 3.5-5.2 G/DL. The reference range was not used to interpret this result as normal/abnormal. ALKALINE PHOSPHATASE (test code = 6768-6) 30 U/L See_Comment L [Automated message] The system which generated this result transmitted reference range: 40-142 U/L. The reference range was not used to interpret this result as normal/abnormal. BILIRUBIN, TOTAL (test code = 1975-2) 1.0 MG/DL See_Comment [Automated message] The system which generated this result transmitted reference range: <=1.2 MG/DL. The reference range was not used to interpret this result as normal/abnormal. BUN (test code = 3094-0) 21 MG/DL See_Comment [Automated messa ge] The system which generated this result transmitted reference range: 8-23 MG/DL. The reference range was not used to interpret this result as normal/abnormal. CALCIUM (test code = 95222-9) 9.5 MG/DL See_Comment [Automated messa ge] The system which generated this result transmitted reference range: 8.5-10.5 MG/DL. The reference range was not used to interpret this result as normal/abnormal. CALC A/G RATIO (test code = 1759-0) 2.1 RATIO See_Comment [Automated messa ge] The system which generated this result transmitted reference range: 1.0-2.6 RATIO. The reference range was not used to interpret this result as normal/abnormal. CALC BUN/CREAT (test code = 3097-3) 14 RATIO See_Comment [Automated messa ge] The system which generated this result transmitted reference range: 6-28 RATIO. The reference range was not used to interpret this result as normal/abnormal. CALC GLOBULIN (test code = 13517-2) 2.3 G/DL See_Comment [Automated messa ge] The system which generated this result transmitted reference range: 1.9-3.7 G/DL. The reference range was not used to interpret this result as normal/abnormal. CARBON DIOXIDE (test code = 1963-8) 25 MEQ/L See_Comment [Automated messa ge] The system which generated this result transmitted reference range: 19-31 MEQ/L. The reference range was not used to interpret this result as normal/abnormal. CHLORIDE (test code = 2075-0) 103 MEQ/L See_Comment [Automated messa ge] The system which generated this result transmitted reference range: 95-107 MEQ/L. The reference range was not used to interpret this result as normal/abnormal. CREATININE (test code = 2160-0) 1.54 MG/DL See_Comment H [Automated messa ge] The system which generated this result transmitted reference range: 0.60-1.30 MG/DL. The reference range was not used to interpret this result as normal/abnormal. eGFR (2020 CKD-EPI) (test code = 52804-9) 34 ML/MIN/1.73 See_Comment L [Automated messa ge] The system which generated this result transmitted reference range: >60 ML/MIN/1.73. The reference range was not used to interpret this result as normal/abnormal. GLUCOSE (test code = 1558-6) 133 MG/DL See_Comment H [Automated messa ge] The system which generated this result transmitted reference range: 70-99 MG/DL. The reference range was not used to interpret this result as normal/abnormal. POTASSIUM (test code = 2823-3) 4.9 MEQ/L See_Comment [Automated messa ge] The system which generated this result transmitted reference range: 3.5-5.4 MEQ/L. The reference range was not used to interpret this result as normal/abnormal. PROTEIN, TOTAL (test code = 2885-2) 7.2 G/DL See_Comment [Automated messa ge] The system which generated this result transmitted reference range: 6.1-8.3 G/DL. The reference range was not used to interpret this result as normal/abnormal. AST (test code = 1920-8) 22 U/L See_Comment [Automated messa ge] The system which generated this result transmitted reference range: 9-40 U/L. The reference range was not used to interpret this result as normal/abnormal. ALT (test code = 1742-6) 15 U/L See_Comment [Automated messa ge] The system which generated this result transmitted reference range: 5-40 U/L. The reference range was not used to interpret this result as normal/abnormal. SODIUM (test code = 2951-2) 142 MEQ/L See_Comment [Automated messa ge] The system which generated this result transmitted reference range: 133-146 MEQ/L. The reference range was not used to interpret this result as normal/abnormal. CBC W/AUTO [id number] 00:00:00* Test Item Value Reference Range Interpretation Comme nts NUCLEATED RBCS (test code = 69135-6) 0.0 /100 WBC'S See_Comment [Automated messa ge] The system which generated this result transmitted reference range: 0.0 /100 WBC'S. The reference range was not used to interpret this result as normal/abnormal. ABSOLUTE EOSINOPHILS (test code = 99119-9) 0.15 K/UL See_Comment [Automated messa ge] The system which generated this result transmitted reference range: 0.00-0.50 K/UL. The reference range was not used to interpret this result as normal/abnormal. ABSOLUTE LYMPHOCYTES (test code = 81975-8) 1.93 K/UL See_Comment [Automated messa ge] The system which generated this result transmitted reference range: 1.00-4.00 K/UL. The reference range was not used to interpret this result as normal/abnormal. ABSOLUTE MONOCYTES (test code = 72440-5) 0.62 K/UL See_Comment [Automated messa ge] The system which generated this result transmitted reference range: 0.20-1.00 K/UL. The reference range was not used to interpret this result as normal/abnormal. ABSOLUTE NEUTROPHILS (test code = 38719-2) 4.24 K/UL See_Comment [Automated messa ge] The system which generated this result transmitted reference range: 1.50-7.50 K/UL. The reference range was not used to interpret this result as normal/abnormal. BASOPHILS (test code = 33454-3) 0.6 % EOSINOPHILS (test code = 36963-8) 2.1 % HEMATOCRIT (test code = 18606-1) 33.5 % See_Comment L [Automated messa ge] The system which generated this result transmitted reference range: 34.0-45.0 %. The reference range was not used to interpret this result as normal/abnormal. HEMOGLOBIN (test code = 718-7) 11.5 G/DL See_Comment [Automated messa ge] The system which generated this result transmitted reference range: 11.5-15.5 G/DL. The reference range was not used to interpret this result as normal/abnormal. LYMPHOCYTES (test code = 47033-0) 27.6 % MCH (test code = 77432-7) 31.3 PG See_Comment [Automated messa ge] The system which generated this result transmitted reference range: 25.0-33.0 PG. The reference range was not used to interpret this result as normal/abnormal. MCHC (test code = 56198-4) 34.3 G/DL See_Comment [Automated messa ge] The system which generated this result transmitted reference range: 31.0-36.0 G/DL. The reference range was not used to interpret this result as normal/abnormal. MCV (test code = 19489-2) 91.3 fL See_Comment [Automated messa ge] The system which generated this result transmitted reference range: 80.0-99.0 fL. The reference range was not used to interpret this result as normal/abnormal. MONOCYTES (test code = 65386-4) 8.9 % NEUTROPHILS (test code = 86674-1) 60.5 % PLATELET COUNT (test code = 33479-7) 329 K/UL See_Comment [Automated messa ge] The system which generated this result transmitted reference range: 130-400 K/UL. The reference range was not used to interpret this result as normal/abnormal. RBC (test code = 97070-6) 3.67 M/UL See_Comment L [Automated messa ge] The system which generated this result transmitted reference range: 3.80-5.40 M/UL. The reference range was not used to interpret this result as normal/abnormal. RDW (test code = 19291-8) 12.0 % See_Comment [Automated messa ge] The system which generated this result transmitted reference range: 11.5-15.0 %. The reference range was not used to interpret this result as normal/abnormal. WBC (test code = 55482-8) 7.0 K/UL See_Comment [Automated messa ge] The system which generated this result transmitted reference range: 3.5-11.0 K/UL. The reference range was not used to interpret this result as normal/abnormal. [id number] 00:00:00* Test Item Value Reference Range Interpretation [facility] FERRITIN (test code = 52019-7) 99 NG/ML See_Comment [Automated messa ge] The system which generated this result transmitted reference range: 13-200 NG/ML. The reference range was not used to interpret this result as normal/abnormal. HEMOGLOBIN [id number] 00:00:00* Test Item Value Reference Range Interpretation [facility] HEMOGLOBIN A1c (test code = 4548-4) 6.8 % See_Comment H [Automated messa ge] The system which generated this result transmitted reference range: 4.2-5.6 %. The reference range was not used to interpret this result as normal/abnormal. TSH REFLEX TO FREE [id number] 00:00:00* Test Item Value Reference Range Interpretation [facility] TSH REFLEX TO FREE T4 (test code = 14160-0) 7.640 UIU/ML See_Comment H [Automated messa ge] The system which generated this result transmitted reference range: 0.400-4.100 UIU/ML. The reference range was not used to interpret this result as normal/abnormal. LIPID PANEL WITH REFLEX DIRECT [id number] 00:00:00* Test Item Value Reference Range Interpretation [facility] CALC LDL CHOL (test code = 90961-7) 91 MG/DL See_Comment [Automated messa ge] The system which generated this result transmitted reference range: <100 MG/DL. The reference range was not used to interpret this result as normal/abnormal. CHOLESTEROL (test code = 2093-3) 172 MG/DL See_Comment [Automated messa ge] The system which generated this result transmitted reference range: <200 MG/DL. The reference range was not used to interpret this result as normal/abnormal. HDL CHOLESTEROL (test code = 2085-9) 53 MG/DL See_Comment [Automated messa ge] The system which generated this result transmitted reference range: >39 MG/DL. The reference range was not used to interpret this result as normal/abnormal. RISK RATIO LDL/HDL (test code = 41464-1) 1.72 RATIO See_Comment [Automated message] The system which generated this result transmitted reference range: <3.22 RATIO. The reference range was not used to interpret this result as normal/abnormal. TRIGLYCERIDES (test code = 2571-8) 187 MG/DL See_Comment H [Automated messa ge] The system which generated this result transmitted reference range: <150 MG/DL. The reference range was not used to interpret this result as normal/abnormal. IRON BINDING CAPACITY AND IRON AND % [id number] 00:00:00* Test Item Value Reference Range Interpretation Comme nts CALC % IRON SAT (test code = 2502-3) 23 % See_Comment [Automated messa ge] The system which generated this result transmitted reference range: 20-50 %. The reference range was not used to interpret this result as normal/abnormal. CALC TOTAL IBC (test code = 93409-2) 421 UG/DL See_Comment [Automated messa ge] The system which generated this result transmitted reference range: 250-450 UG/DL. The reference range was not used to interpret this result as normal/abnormal. IRON, SERUM (test code = 2498-4) 98 UG/DL See_Comment [Automated messa ge] The system which generated this result transmitted reference range: 37-145 UG/DL. The reference range was not used to interpret this result as normal/abnormal. UNSATURATED IBC (test code = 2501-5) 323 UG/DL See_Comment [Automated messa ge] The system which generated this result transmitted reference range: 112-347 UG/DL. The reference range was not used to interpret this result as normal/abnormal. TSH + FREE T4 [id number] 00:00:00* Test Item Value Reference Range Interpretation Comme nts FREE T4 (THYROXINE) (test code = 3024-7) 1.15 NG/DL See_Comment [Automated message] The system which generated this result transmitted reference range: 0.80-1.90 NG/DL. The reference range was not used to interpret this result as normal/abnormal. TSH, THIRD GENERATION (test code = 18671-1) 7.640 UIU/ML See_Comment H [Automated messa ge] The system which generated this result transmitted reference range: 0.400-4.100 UIU/ML. The reference range was not used to interpret this result as normal/abnormal. ALBUMIN/CREATININE RATIO, RANDOM [id number] 00:00:00* Test Item Value Reference Range Interpretation Comme nts ALBUMIN, URINE, RANDOM (test code = 47138-1) 1.8 MG/DL NOT ESTAB MG/DL CALC ALBUMIN/CREAT, RND (test code = 03978-1) 22 MG/G See_Comment [Automated messa ge] The system which generated this result transmitted reference range: <30 MG/G. The reference range was not used to interpret this result as normal/abnormal. CREATININE, URINE, CONC. (test code = 2161-8) 82.5 MG/DL NOT ESTAB MG/DL COMPREHENSIVE METABOLIC [id number] 00:00:00* Test Item Value Reference Range Interpretation Comme nts ALBUMIN (test code = 1751-7) 4.8 G/DL See_Comment [Automated messa ge] The system which generated this result transmitted reference range: 3.5-5.2 G/DL. The reference range was not used to interpret this result as normal/abnormal. ALKALINE PHOSPHATASE (test code = 6768-6) 42 U/L See_Comment [Automated message] The system which generated this result transmitted reference range: 40-142 U/L. The reference range was not used to interpret this result as normal/abnormal. BILIRUBIN, TOTAL (test code = 1975-2) 0.5 MG/DL See_Comment [Automated message] The system which generated this result transmitted reference range: <=1.2 MG/DL. The reference range was not used to interpret this result as normal/abnormal. BUN (test code = 3094-0) 19 MG/DL See_Comment [Automated messa ge] The system which generated this result transmitted reference range: 8-23 MG/DL. The reference range was not used to interpret this result as normal/abnormal. CALCIUM (test code = 78551-6) 10.5 MG/DL See_Comment [Automated messa ge] The system which generated this result transmitted reference range: 8.5-10.5 MG/DL. The reference range was not used to interpret this result as normal/abnormal. CALC A/G RATIO (test code = 1759-0) 1.7 RATIO See_Comment [Automated messa ge] The system which generated this result transmitted reference range: 1.0-2.6 RATIO. The reference range was not used to interpret this result as normal/abnormal. CALC BUN/CREAT (test code = 3097-3) 13 RATIO See_Comment [Automated messa ge] The system which generated this result transmitted reference range: 6-28 RATIO. The reference range was not used to interpret this result as normal/abnormal. CALC GLOBULIN (test code = 47621-7) 2.8 G/DL See_Comment [Automated messa ge] The system which generated this result transmitted reference range: 1.9-3.7 G/DL. The reference range was not used to interpret this result as normal/abnormal. CARBON DIOXIDE (test code = 1963-8) 25 MEQ/L See_Comment [Automated messa ge] The system which generated this result transmitted reference range: 19-31 MEQ/L. The reference range was not used to interpret this result as normal/abnormal. CHLORIDE (test code = 2075-0) 101 MEQ/L See_Comment [Automated messa ge] The system which generated this result transmitted reference range: 95-107 MEQ/L. The reference range was not used to interpret this result as normal/abnormal. CREATININE (test code = 2160-0) 1.52 MG/DL See_Comment H [Automated messa ge] The system which generated this result transmitted reference range: 0.60-1.30 MG/DL. The reference range was not used to interpret this result as normal/abnormal. eGFR (2020 CKD-EPI) (test code = 00487-0) 35 ML/MIN/1.73 See_Comment L [Automated messa ge] The system which generated this result transmitted reference range: >60 ML/MIN/1.73. The reference range was not used to interpret this result as normal/abnormal. GLUCOSE (test code = 1558-6) 134 MG/DL See_Comment H [Automated messa ge] The system which generated this result transmitted reference range: 70-99 MG/DL. The reference range was not used to interpret this result as normal/abnormal. POTASSIUM (test code = 2823-3) 5.1 MEQ/L See_Comment [Automated messa ge] The system which generated this result transmitted reference range: 3.5-5.4 MEQ/L. The reference range was not used to interpret this result as normal/abnormal. PROTEIN, TOTAL (test code = 2885-2) 7.6 G/DL See_Comment [Automated messa ge] The system which generated this result transmitted reference range: 6.1-8.3 G/DL. The reference range was not used to interpret this result as normal/abnormal. AST (test code = 1920-8) 24 U/L See_Comment [Automated messa ge] The system which generated this result transmitted reference range: 9-40 U/L. The reference range was not used to interpret this result as normal/abnormal. ALT (test code = 1742-6) 16 U/L See_Comment [Automated messa ge] The system which generated this result transmitted reference range: 5-40 U/L. The reference range was not used to interpret this result as normal/abnormal. SODIUM (test code = 2951-2) 135 MEQ/L See_Comment [Automated messa ge] The system which generated this result transmitted reference range: 133-146 MEQ/L. The reference range was not used to interpret this result as normal/abnormal.
[2024-01-25] MEDS ORDERED: NA CHLORIDE 0.9% 500 ML ONE (09:33)
[2024-01-25] MEDS ORDERED: ONDANSETRON 4 MG/2 ML VIAL ONE (09:34)
[2024-01-25 10:12] LABS: Absolute Lymphocytes (CBC) 0.7 K/uL (0.7-4.9); Absolute Monocytes 0.6 K/uL (0.1-1.3); Absolute Neutrophil 8.6 K/uL (1.8-8.0); Basophils % 0.2 % (0-1.3); Hematocrit 38.2 % (36.0-45.0); Lymphocytes % 7.4 % (15.3-44.8); MCH 31.6 pg (27.0-35.0); MCHC 34.1 g/dL (32.0-36.0); MCV 92.5 fL (80-100); MPV 9.1 fL (7.6-11.3); Neutrophils % 86.4 % (41.7-73.7); Platelets 259 thou/uL (152-406); RBC Red Blood Cell Count 4.13 M/uL (3.86-4.86); Red Cell Distribution Width 12.6 % (12.1-15.2)
[2024-01-25 10:29] LABS: Anion Gap 13.8 mEq/L (5.0-15.0); Bilirubin Direct 0.3 mg/dL (0-0.2); Bilirubin Indirect, Calculated 0.7 mg/dL (0.2-0.8); Globulin 4.2 g/dL (2.3-3.5); Magnesium 1.6 mg/dL (1.6-2.4); Potassium 3.8 mEq/L (3.5-5.1); Protein, Total 8.2 g/dL (6.4-8.2); Troponin High Sensitivity 37.7 pg/mL (<58.9)
[2024-01-25 10:32] LABS: SARS-CoV-2 Antigen CONTROL BLUE LINE VIS/BG OK
[2024-01-25 10:34] LABS: SARS-CoV-2 Antigen Rapid Res Positive (Negative)
--- NOTE | 2024-01-25 11:30 | RAD REPORT ---
EXAM DESCRIPTION: Pati Single View01/25/2024 10:52 am CLINICAL HISTORY: Chest pain COMPARISON: 2022 FINDINGS: The lungs appear clear of acute infiltrate. The heart is mildly enlarged Calcified granuloma right lung IMPRESSION: No acute abnormalities displayed
--- NOTE | 2024-01-25 11:31 | RAD REPORT ---
EXAM DESCRIPTION: RAD - Femur Left - 01/25/2024 10:52 am CLINICAL HISTORY: Leg pain FINDINGS: The bones are osteoporotic. No fracture is seen. Left knee prosthesis present
--- NOTE | 2024-01-25 11:37 | RAD REPORT ---
EXAM DESCRIPTION: CT - Abdomen Pelvis Wo Contrast - 01/25/2024 11:18 am CLINICAL HISTORY: Abdominal pain COMPARISON: None TECHNIQUE: Computed axial tomography of the abdomen and pelvis was obtained. IV and oral contrast we re not requested. All CT scans are performed using dose optimization technique as appropriate and may include automated exposure control or mA/KV adjustment according to patient size. FINDINGS: The evaluation of solid organs, vessels and bowel is limited secondary to the lack of con trast administration. Thickening of the wall the gastric fundus. The liver, spleen, pancreas, adrenals and kidneys appear grossly normal. No adnexal mass There is no evidence of diverticulitis. Atherosclerosis results in high-grade stenoses common and external iliac arteries. IMPRESSION: Thickening of the wall of the gastric fundus may indicate a mass or incomplete distentio n. Endoscopy recommended
[2024-01-25 11:54] LABS: Blood Morphology Comment NOT SEEN (NOT SEEN); Platelet Estimate ADEQ; White Blood Cell Scan OK (OK)
--- NOTE | 2024-01-25 12:04 | EDPHYS ---
Physician Documentation [facility] Name: Isabel Henry Age: 78 yrs Sex: Female : 1945 Arrival Date: 01/25/2024 Time: 09:10 Bed 19 Private MD: ED Physician Graeme Lou HPI: 01/24 11:18 This 78 yrs old Female presents to ER via Ambulatory with complaints of kb Nausea, Fall Injury, Decreased Appetite. 11:18 Pt is a 78 year old female who presents for weakness and decreased appetite that kb started 2 days ago. States she has had some congestion and rhinorrhea for about 3 days as well. States she tried to get out of bed this morning and fell due to weakness so that prompted her visit to the ER. Denies fever, head injury, loc. Historical: - Allergies: 09:19 Depo-Provera; ld1 09:19 Vicodin; ld1 - PMHx: 09:19 diabetes mellitus; Pneumonia; Hypothyroidism; Myocardial infarction; ld1 - Immunization history:: Adult Immunizations up to date. - Infectious Disease History:: Denies. - Social history:: Smoking status: Patient denies any tobacco usage or history of. ROS: 11:17 Constitutional: As per HPI kb Exam: 10:37 Constitutional: This is a well developed, well nourished patient who is awake, alert, kb and in no acute distress. Head/Face: Normocephalic, atraumatic. ENT: Moist Mucous membranes Cardiovascular: Regular rate Respiratory: Respirations even and unlabored. No increased work of breathing. Talking in full sentences Abdomen/GI: Soft, non-tender. No distention Back: No spinal tenderness. No costovertebral tenderness. Full range of motion. Skin: Warm, dry with normal turgor. Normal color. Neuro: Awake and alert, GCS 15, oriented to person, place, time, and situation. Moves all extremities. Normal gait. 10:37 ECG was reviewed by the Attending Physician. 10:37 Musculoskeletal/extremity: Extremities: grossly normal except: noted in the left hip: pain, ROM: intact in all extremities, Circulation is intact in all extremities. Sensation intact. Weight bearing: able to fully bear weight, Vital Signs: 09:25 BP 166 / 82; Pulse 95; Resp 18; Temp 98(O); Pulse Ox 98% on R/A; Weight 59.87 kg; ld1 Height 5 ft. 1 in. ; Pain 0/10; 10:03 BP 182 / 81; Pulse 80; Resp 18; Pulse Ox 97% on R/A; ld1 10:40 BP 201 / 78; Pulse 80; Resp 18; Pulse Ox 95% on R/A; ld1 12:26 BP 176 / 79; Pulse 83; Resp 18; Pulse Ox 96% on R/A; ld1 09:25 Body Mass Index 24.94 (59.87 kg, 154.94 cm) ld1 09:25 Pain Scale: Adult ld1 MDM: 09:13 Patient medically screened. kb 12:04 Data reviewed: vital signs, nurses notes. kb 12:13 Differential diagnosis: Nonspecific abd pain, viral gastroenteritis, viral illness, kb covid. Consideration of Admission/Observation Escalation of care including admission/observation considered. admission considered, but pt tolerating po intake, nontoxic in appearance.. I considered the following discharge prescriptions or medication management in the emergency department I discussed and recommended Over The Counter medications, Antivirals: At this time, antivirals are not recommended. Historians other than the Patient: Daughter/Son: daughter. Counseling: I had a detailed discussion with the patient and/or guardian regarding the historical points, exam findings, and any diagnostic results supporting the discharge/admit diagnosis, lab results, radiology results, the need for outpatient follow up, a family practitioner, to return to the emergency department if symptoms worsen or persist or if there are any questions or concerns that arise at home. ED course: corrected sodium 132. Pt educated on ct findings and need for follow up with GI for endoscopy. Verbal understanding received from pt and daughter. 01/24 09:25 Order name: Basic Metabolic Panel; Complete Time: 10:34 kb 01/24 09:25 Order name: CBC with Diff; Complete Time: 12:01 kb 01/24 09:25 Order name: Hepatic Function; Complete Time: 10:34 kb 01/24 09:25 Order name: Magnesium; Complete Time: 10:34 kb 01/24 09:25 Order name: Troponin High Sensitivity; Complete Time: 10:34 kb 01/24 09:25 Order name: Lipase; Complete Time: 10:34 kb 01/24 09:25 Order name: Flu; Complete Time: 10:37 kb 01/24 09:25 Order name: SARS-COV-2 Antigen Rapid; Complete Time: 10:34 kb 01/24 11:55 Order name: CBC Smear Scan; Complete Time: 12:01 EDMS 01/24 09:25 Order name: Chest Single View XRAY; Complete Time: 11:31 kb 01/24 09:25 Order name: Femur Left XRAY; Complete Time: 11:31 kb 01/24 10:36 Order name: Abdomen ; Complete Time: 11:42 EDMS 01/24 09:25 Order name: Cardiac monitoring; Complete Time: 10:02 kb 01/24 09:25 Order name: EKG - Nurse/Tech; Complete Time: 10:37 kb 01/24 09:25 Order name: IV Saline Lock; Complete Time: 10:02 kb 01/24 09:25 Order name: Labs collected and sent; Complete Time: 10:02 kb 01/24 09:25 Order name: NPO; Complete Time: 09:28 kb 01/24 09:25 Order name: O2 Per Protocol; Complete Time: 09:28 kb 01/24 09:25 Order name: O2 Sat Monitoring; Complete Time: 09:28 kb EC:37 Rate is 79 beats/min. Rhythm is regular. QRS [place] is Normal. [place] interval is normal at kb 160 msec. QRS interval is normal at 94 msec. QT interval is normal at 490 msec. Administered Medications: 10:02 Drug: NS 0.9% IV 500 ml IV at bolus once Route: IV; Rate: bolus; Site: right ld1 antecubital; 11:11 Follow up: Response: No adverse reaction; IV Status: Completed infusion; IV Intake: ld1 500ml 10:02 Drug: Ondansetron IVP 4 mg IVP once; over 2 minutes Route: IVP; Site: right antecubital;ld1 10:45 Follow up: Response: No adverse reaction ld1 Disposition: 13:14 Co-signature as Attending Physician, Graeme Lou MD I reviewed the patient's care rt provided by the Advanced Practice Provider and agree with the diagnosis and treatment plan. Disposition Summary: 01/25/24 12:03 Discharge Ordered Notes: Location: Home kb Condition: Stable kb Diagnosis - SARS-associated coronavirus as the cause of diseases classified elsewhere kb - Weakness kb Followup: kb - With: Emergency Department - When: As needed - Reason: Worsening of condition Followup: kb - With: Private Physician - When: 2 - 3 days - Reason: Recheck today's complaints, Continuance of care, Re-evaluation by your physician Discharge Instructions: - Discharge Summary Sheet kb - COVID-19 kb - Viral Illness, Adult kb Forms: - Medication Reconciliation Form kb - Antibiotic Education kb - Prescription Opioid Use kb - Patient Portal Instructions kb - Leadership Thank You Letter kb Prescriptions: - Zofran 4 mg Oral tablet - take 1 tablet ORAL route every 6 hours As needed; 12 tablet; Refills: 0, kb Product Selection Permitted Signatures: Dispatcher [employer] EDMS Cecily Retana, BEAM DYER OPERATOR-C BEAM DYER OPERATOR-Nafisa Aguilar RN RN ld1 Graeme Lou MD MD rt Corrections: (The following items were deleted from the chart) 09: 09:26 Chest Single View+RAD.RAD.BRZ ordered. EDMS EDMS 09: 09:26 Abdomen Pelvis W Con+CT.RAD.BRZ ordered. EDMS EDMS : 09:26 Femur Left+RAD.RAD.BRZ ordered. EDMS EDMS
--- NOTE | 2024-01-25 12:04 | ER ---
Nurse's Notes [facility] Name: Isabel Henry Age: 78 yrs Sex: Female : 1945 Arrival Date: 01/25/2024 Time: 09:10 Bed 19 Private MD: Diagnosis: SARS-associated coronavirus as the cause of diseases classified elsewhere;Weakness Presentation: 01/24 09:25 Chief complaint: Patient states: Lack of appetite X 2 days, general weakness X 4 days. ld1 Pt reports sinus pressure and runny nose. States "I stood up this morning and feel because I was so weak." Negative LOC, did not hit head. Coronavirus screen: At this time, the client does not indicate any symptoms associated with coronavirus-19. Ebola Screen: No symptoms or risks identified at this time. Initial Sepsis Screen: Does the patient meet any 2 criteria? No. Patient's initial sepsis screen is negative. Does the patient have a suspected source of infection? No. Patient's initial sepsis screen is negative. Risk Assessment: Do you want to hurt yourself or someone else? Patient reports no desire to harm self or others. Onset of symptoms was January 25, 2024. 09:25 Method Of Arrival: Ambulatory ld1 09:25 Acuity: DIANELYS 3 ld1 Triage Assessment: 09:25 General: Appears in no apparent distress. comfortable, Behavior is calm, cooperative, ld1 appropriate for age. Pain: Denies pain. EENT: No signs and/or symptoms were reported regarding the EENT system. Neuro: Level of Consciousness is awake, alert, obeys commands, Oriented to person, place, time, situation. Cardiovascular: Capillary refill < 3 seconds Patient's skin is warm and dry. Respiratory: Airway is patent Respiratory effort is even, unlabored. GI: Abdomen is flat, non-distended, Reports upper abdominal pain, intolerance of food, nausea. : No signs and/or symptoms were reported regarding the genitourinary system. Derm: No signs and/or symptoms reported regarding the dermatologic system. Musculoskeletal: No signs and/or symptoms reported regarding the musculoskeletal system. Historical: - Allergies: 09:19 Depo-Provera; ld1 09:19 Vicodin; ld1 - PMHx: 09:19 diabetes mellitus; Pneumonia; Hypothyroidism; Myocardial infarction; ld1 - Immunization history:: Adult Immunizations up to date. - Infectious Disease History:: Denies. - Social history:: Smoking status: Patient denies any tobacco usage or history of. Screenin:[facility] ED Fall Risk Assessment (Adult) History of falling in the last 3 months, ld1 including since admission Yes- single mechanical fall (1 pt) Confusion or Disorientation No (0 pts) Intoxicated or Sedated No (0 pts) Impaired Gait No (0 pts) Mobility Assist Device Used No (0 pt) Altered Elimination No (0 pt) Score/Fall Risk Level 0 - 2 = Low Risk Oriented to surroundings, Maintained a safe environment, Educated pt \\T\\ family on fall prevention, incl call for assistance when getting out of bed, Assessed \\T\\ reinforced patient's understanding of fall precautions, Provided non-skid footwear, Hourly rounding (assess needs \\T\\ fall precautionary measures) done, Used ambulatory aids as needed (educated on \\T\\ assisted with), Used gait belt as appropriate. Abuse screen: Denies threats or abuse. Denies injuries from another. Nutritional screening: No deficits noted. Tuberculosis screening: No symptoms or risk factors identified. Assessment: 09:28 Reassessment: See triage assessment. ld1 09:28 GI: Abdomen is flat, non-distended, Reports upper abdominal pain. ld1 10:03 Reassessment: Patient appears in no apparent distress at this time. No changes from ld1 previously documented assessment. Patient and/or family updated on plan of care and expected duration. Pain level reassessed. Patient is alert, oriented x 3, equal unlabored respirations, skin warm/dry/pink. 11:12 Reassessment: Patient appears in no apparent distress at this time. No changes from ld1 previously documented assessment. Patient and/or family updated on plan of care and expected duration. Pain level reassessed. Patient is alert, oriented x 3, equal unlabored respirations, skin warm/dry/pink. 12:26 Reassessment: Patient appears in no apparent distress at this time. No changes from ld1 previously documented assessment. Patient and/or family updated on plan of care and expected duration. Pain level reassessed. Patient is alert, oriented x 3, equal unlabored respirations, skin warm/dry/pink. Vital Signs: 09:25 BP 166 / 82; Pulse 95; Resp 18; Temp 98(O); Pulse Ox 98% on R/A; Weight 59.87 kg; ld1 Height 5 ft. 1 in. ; Pain 0/10; 10:03 BP 182 / 81; Pulse 80; Resp 18; Pulse Ox 97% on R/A; ld1 10:40 BP 201 / 78; Pulse 80; Resp 18; Pulse Ox 95% on R/A; ld1 12:26 BP 176 / 79; Pulse 83; Resp 18; Pulse Ox 96% on R/A; ld1 09:25 Body Mass Index 24.94 (59.87 kg, 154.94 cm) ld1 09:25 Pain Scale: Adult ld1 ED Course: 09:13 Patient arrived in ED. mg5 09:13 Cecily Retana FNP-C [facility]. kb 09:13 Graeme Lou MD is Attending Physician. kb 09:19 Nafisa Stallings RN is Primary Nurse. ld1 09:25 Arm band placed on right wrist. ld1 09:26 Triage completed. ld1 09:28 Patient has correct armband on for positive identification. Placed in gown. Bed in low ld1 position. Call light in reach. Side rails up X2. bunch maker hand on. Pulse ox on. NIBP on. Door closed. Noise minimized. Warm blanket given. 09:28 No provider procedures requiring assistance completed. ld1 10:02 SARS-COV-2 Antigen Rapid Sent. ld1 10:02 Flu Sent. ld1 10:03 Inserted saline lock: 20 gauge in right antecubital area, using aseptic technique. ld1 Blood collected. Flushed with 10 mL NS. 10:53 Chest Single View XRAY In Process Unspecified. EDMS 10:53 Femur Left XRAY In Process Unspecified. EDMS 11:19 Abdomen In Process Unspecified. EDMS 12:27 IV discontinued, intact, bleeding controlled, No redness/swelling at site. ld1 Administered Medications: 10:02 Drug: NS 0.9% IV 500 ml IV at bolus once Route: IV; Rate: bolus; Site: right ld1 antecubital; 11:11 Follow up: Response: No adverse reaction; IV Status: Completed infusion; IV Intake: ld1 500ml 10:02 Drug: Ondansetron IVP 4 mg IVP once; over 2 minutes Route: IVP; Site: right antecubital;ld1 10:45 Follow up: Response: No adverse reaction ld1 Medication: 12:27 VIS not applicable for this client. ld1 Intake: 11:11 IV: 500ml; Total: 500ml. ld1 Outcome: 12:03 Discharge ordered by . steff 12:27 Discharged to home ambulatory, with family, ld1 12:27 Condition: stable 12:27 Discharge instructions given to patient, Instructed on discharge instructions, follow up and referral plans. Demonstrated understanding of instructions, follow-up care, medications, Prescriptions given X 1, 12:27 Patient left the ED. ld1 Signatures: Dispatcher [employer] EDMS Cecily Retana, Nafisa Saenz RN RN ld1 Earnestine Lynch mg5 Corrections: (The following items were deleted from the chart) 09:27 09:25 Chief complaint: Patient states: Lack of appetite X 2 days, general weakness X 4 ld1 days. Pt reports sinus pressure and runny nose. ld1
[2024-01-25 12:41] VITALS: TEMP 98
[2024-01-25 12:53] VITALS: BP 176/79; O2SAT 96
--- NOTE | 2024-01-28 12:47 | EKG ---
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
== END 2024-01-25 12:27 | disposition home or self-care (01) ==
LOC: ER 09:10
DX: U07.1 COVID-19 (principal); R11.0 Nausea; W06.XXXA Fall from bed, initial encounter; E11.9 Type 2 diabetes mellitus without complications; I25.2 Old myocardial infarction
CPT/HCPCS: 96361; 93005; 85025; 80048; 36415; 83735; 80076; 84484; 83690; 87804 ×2; 74176; 71045; 73552; 96374; 99285; 87811; J2405; J7040

== ENCOUNTER 2024-06-10 21:53 | Emergency (ER) | payer MEDICARE, OTHER ==
[2024-06-10] MEDS ORDERED: SUCCINYLCHOLINE 20 MG/ML (10 ML) IV ONE (21:54)
[2024-06-10] MEDS ORDERED: ETOMIDATE 20 MG/10 ML VIAL IV ONE (21:54)
--- OUTSIDE RECORDS SUMMARY | 2024-06-10 21:56 | XMS REPORT | Continuity of Care Document ---
Author Name Unknown Address [address] [facility] [address] [place] [address] [facility] Address [address] [facility] [address] [place] [address] Care Team Providers Care [employer] Practitioner Name Role Phone Ilya Denia Attending Clinician Unavailable Katerina Brewer Attending Clinician Anuja Mcadams Attending Clinician Payers Payer Name Policy Type Policy Number Effective Date Expirati on Date Source [employer] (MEDICARE REPLACEMENT HMO) [id number] 2021 00:00:00 Problems Condition Name Condition Details Condition Category Status Onset Date Resolution Date Last Treatment Date Treating Clinician Comments Source [id number] Allergy to ant bite Problem Common [facility] [id number] Hypoglycem ia Problem Common [facility] [id number] Salivary stone Problem [facility] [id number] Sinusitis chronic, frontal Problem [facility] [id number] Hypertensi ve emergency Problem [facility] [id number] Essential (primary) hypertensi on Problem [facility] [id number] Other specified hearing loss of both ears Problem [facility] [id number] Type 2 diabetes mellitus with hyperglyce kristina, without long-term current use of insulin Problem [facility] [id number] Mixed hyperlipid emia Problem [facility] [id number] Hypothyroi dism, unspecifie d type Problem [facility] [id number] Coronary artery disease involving mashpee coronary artery of mash[place] heart without angina pectoris Problem [facility] Gastroesop hageal reflux disease GERD without esophagiti s Problem [facility] [id number] Hypertensi ve urgency Problem [facility] Anemia Anemia, unspecifie d type Problem [facility] [id number] Urge incontinen ce Problem [facility] [id number] Stage 3a chronic kidney disease Problem [facility] [id number] Type 2 diabetes mellitus with other diabetic kidney complicati on Problem [facility] Allergies, Adverse Reactions, Alerts Allergy Name Allergy Type Status Severity Reaction(s) Onset Date Inactive Date Treating Clinician Comments Source medroxyp rogester one medroxyp rogester one Active Unknown [facility] Social History Social Habit Start Date Stop Date Quantity Comments Source History of Tobacco Use [facility] Sex Assigned At [facility] Smoking Status Start Date Stop Date Source Former Smoker 2024-06-02 00:00:00 2024-06-02 00:00:00 [facility] Medications Ordered Medication Name Filled Medication Name Start Date Stop Date Current Medication? Ordering Clinician Indication Dosage Frequency Signature (SIG) Comments Components Source Glimepiride 2 MG Glimepiride 2 MG 2023-05 00:00: 00 No 1{table t_with_ breakfa st_or_t he_firs t_main_ meal_of _the_da y} QD Glimepirid e 2 MG Clobetasol Propionate 0.05 % Clobetasol Propionate 0.05 [...] metFORMIN HCl 500 MG Levothyroxi ne Sodium 125 MCG Levothyroxi ne Sodium 125 MCG No QD Levothyrox ine Sodium 125 MCG Vital Signs Vital Name Observation Time Observation Value Comments S ource height 2024-04-07 15:00:00 61 [in_i] Commo n [facility] weight 2024-04-07 15:00:00 134 [lb_av] Comm on [facility] temperature 2024-04-07 15:00:00 97.5 [degF] Com mon [facility] bmi 2024-04-07 15:00:00 25.32 kg/m2 Comm on [facility] oximetry 2024-04-07 15:00:00 96 % Commo n [facility] respiratory rate 2024-04-07 15:00:00 16 /min [facility] blood pressure systolic 2024-04-07 15:00:00 150 mm[Hg] [facility] blood pressure diastolic 2024-04-07 15:00:00 76 mm[Hg] [facility] height 2024-03-19 09:20:00 61 [in_i] Commo n [facility] weight 2024-03-19 09:20:00 133 [lb_av] Comm on [facility] temperature 2024-03-19 09:20:00 97.2 [degF] Com mon [facility] bmi 2024-03-19 09:20:00 25.13 kg/m2 Comm on [facility] oximetry 2024-03-19 09:20:00 97 % Commo n [facility] respiratory rate 2024-03-19 09:20:00 16 /min Common [facility] blood pressure systolic 2024-03-19 09:20:00 212 mm[Hg] [facility] blood pressure diastolic 2024-03-19 09:20:00 88 mm[Hg] Common [facility] height 2023-11-05 13:40:00 61 [in_i] Commo n [facility] weight 2023-11-05 13:40:00 134.4 [lb_av] Co mmon [facility] temperature 2023-11-05 13:40:00 96.4 [degF] Com [facility] bmi 2023-11-05 13:40:00 25.39 kg/m2 Comm on [facility] oximetry 2023-11-05 13:40:00 98 % Commo n [facility] respiratory rate 2023-11-05 13:40:00 16 /min Common [facility] blood pressure systolic 2023-11-05 13:40:00 164 mm[Hg] [facility] blood pressure diastolic 2023-11-05 13:40:00 68 mm[Hg] Common [facility] height 2023-07-23 14:40:00 61 [in_i] Commo n [facility] weight 2023-07-23 14:40:00 133 [lb_av] Comm on [facility] temperature 2023-07-23 14:40:00 97.3 [degF] Com [facility] bmi 2023-07-23 14:40:00 25.13 kg/m2 Comm on [facility] oximetry 2023-07-23 14:40:00 98 % Commo n [facility] respiratory rate 2023-07-23 14:40:00 16 /min Common [facility] blood pressure systolic 2023-07-23 14:40:00 146 mm[Hg] [facility] blood pressure diastolic 2023-07-23 14:40:00 74 mm[Hg] [facility] height 2023-07-23 15:00:00 61 [in_i] Commo n [facility] weight 2023-07-23 15:00:00 133 [lb_av] Comm on [facility] temperature 2023-07-23 15:00:00 97.3 [degF] Com [facility] bmi 2023-07-23 15:00:00 25.13 kg/m2 Comm on [facility] oximetry 2023-07-23 15:00:00 98 % Commo n [facility] respiratory rate 2023-07-23 15:00:00 16 /min Common [facility] blood pressure systolic 2023-07-23 15:00:00 146 mm[Hg] [facility] blood pressure diastolic 2023-07-23 15:00:00 74 mm[Hg] [facility] height 2023-01-07 15:40:00 61 [in_i] Commo n [facility] weight 2023-01-07 15:40:00 133.8 [lb_av] Co mmon [facility] temperature 2023-01-07 15:40:00 96.8 [degF] Com [facility] bmi 2023-01-07 15:40:00 25.28 kg/m2 Comm on [facility] oximetry 2023-01-07 15:40:00 97 % Commo n [facility] respiratory rate 2023-01-07 15:40:00 16 /min Common [facility] blood pressure systolic 2023-01-07 15:40:00 170 mm[Hg] [facility] blood pressure diastolic 2023-01-07 15:40:00 68 mm[Hg] [facility] height 2023-01-07 14:40:00 61 [in_i] Commo n [facility] weight 2023-01-07 14:40:00 133.8 [lb_av] Co mmon [facility] temperature 2023-01-07 14:40:00 96.8 [degF] Com [facility] bmi 2023-01-07 14:40:00 25.28 kg/m2 Comm on [facility] oximetry 2023-01-07 14:40:00 97 % Commo n [facility] respiratory rate 2023-01-07 14:40:00 16 /min Common [facility] blood pressure systolic 2023-01-07 14:40:00 170 mm[Hg] [facility] blood pressure diastolic 2023-01-07 14:40:00 68 mm[Hg] [facility] height 2022-11-07 15:40:00 61 [in_i] Commo n [facility] weight 2022-11-07 15:40:00 134.6 [lb_av] Co mmon [facility] temperature 2022-11-07 15:40:00 97.3 [degF] Com [facility] bmi 2022-11-07 15:40:00 25.43 kg/m2 Comm on [facility] oximetry 2022-11-07 15:40:00 98 % Commo n [facility] respiratory rate 2022-11-07 15:40:00 16 /min Common [facility] blood pressure systolic 2022-11-07 15:40:00 162 mm[Hg] Common [facility] blood pressure diastolic 2022-11-07 15:40:00 73 mm[Hg] [facility] height 2022-10-03 15:00:00 61 [in_i] Commo n [facility] weight 2022-10-03 15:00:00 132.4 [lb_av] Co mmon [facility] temperature 2022-10-03 15:00:00 97.6 [degF] Com mon [facility] bmi 2022-10-03 15:00:00 25.01 kg/m2 Comm on [facility] oximetry 2022-10-03 15:00:00 96 % Commo n [facility] respiratory rate 2022-10-03 15:00:00 16 /min [facility] blood pressure systolic 2022-10-03 15:00:00 144 mm[Hg] Common [facility] blood pressure diastolic 2022-10-03 15:00:00 85 mm[Hg] Common [facility] height 2022-09-26 15:00:00 61 [in_i] Commo n [facility] weight 2022-09-26 15:00:00 132.4 [lb_av] Co mmon [facility] temperature 2022-09-26 15:00:00 97.6 [degF] Com mon [facility] bmi 2022-09-26 15:00:00 25.01 kg/m2 Comm on [facility] oximetry 2022-09-26 15:00:00 97 % Commo n [facility] respiratory rate 2022-09-26 15:00:00 16 /min [facility] blood pressure systolic 2022-09-26 15:00:00 168 mm[Hg] Common [facility] blood pressure diastolic 2022-09-26 15:00:00 80 mm[Hg] Common [facility] height 2022-09-19 14:00:00 61 [in_i] Commo n [facility] weight 2022-09-19 14:00:00 134 [lb_av] Comm on [facility] temperature 2022-09-19 14:00:00 97.8 [degF] Com mon [facility] bmi 2022-09-19 14:00:00 25.32 kg/m2 Comm on [facility] oximetry 2022-09-19 14:00:00 98 % Commo n [facility] respiratory rate 2022-09-19 14:00:00 16 /min [facility] blood pressure systolic 2022-09-19 14:00:00 184 mm[Hg] Common [facility] blood pressure diastolic 2022-09-19 14:00:00 92 mm[Hg] Common [facility] height 2022-09-14 14:20:00 61 [in_i] Commo n [facility] weight 2022-09-14 14:20:00 135.4 [lb_av] Co mmon [facility] temperature 2022-09-14 14:20:00 98.0 [degF] Com mon [facility] bmi 2022-09-14 14:20:00 25.58 kg/m2 Comm on [facility] oximetry 2022-09-14 14:20:00 94 % Commo n [facility] respiratory rate 2022-09-14 14:20:00 16 /min Common [facility] blood pressure systolic 2022-09-14 14:20:00 224 mm[Hg] [facility] blood pressure diastolic 2022-09-14 14:20:00 86 mm[Hg] Common [facility] height 2022-08-27 08:40:00 61 [in_i] Commo n [facility] weight 2022-08-27 08:40:00 125 [lb_av] Comm on [facility] bmi 2022-08-27 08:40:00 23.62 kg/m2 Comm on [facility] height 2021-12-28 10:40:00 61 [in_i] Commo n [facility] weight 2021-12-28 10:40:00 129.4 [lb_av] Co mmon [facility] temperature 2021-12-28 10:40:00 98.4 [degF] Com mon [facility] bmi 2021-12-28 10:40:00 24.45 kg/m2 Comm on [facility] oximetry 2021-12-28 10:40:00 98 % Commo n [facility] respiratory rate 2021-12-28 10:40:00 16 /min [facility] blood pressure systolic 2021-12-28 10:40:00 128 mm[Hg] Common [facility] blood pressure diastolic 2021-12-28 10:40:00 76 mm[Hg] Common [facility] height 2021-12-15 14:20:00 61 [in_i] Commo n [facility] weight 2021-12-15 14:20:00 131.8 [lb_av] Co mmon [facility] temperature 2021-12-15 14:20:00 97.8 [degF] Com mon [facility] bmi 2021-12-15 14:20:00 24.9 kg/m2 Commo n [facility] oximetry 2021-12-15 14:20:00 97 % Commo n [facility] respiratory rate 2021-12-15 14:20:00 20 /min [facility] blood pressure systolic 2021-12-15 14:20:00 152 mm[Hg] [facility] blood pressure diastolic 2021-12-15 14:20:00 80 mm[Hg] Common [facility] height 2021-12-15 14:20:00 61 [in_i] Commo n [facility] weight 2021-12-15 14:20:00 131.8 [lb_av] Co mmon [facility] temperature 2021-12-15 14:20:00 97.8 [degF] Com mon [facility] bmi 2021-12-15 14:20:00 24.9 kg/m2 Commo n [facility] oximetry 2021-12-15 14:20:00 97 % Commo n [facility] respiratory rate 2021-12-15 14:20:00 20 /min Common [facility] blood pressure systolic 2021-12-15 14:20:00 152 mm[Hg] Common [facility] blood pressure diastolic 2021-12-15 14:20:00 80 mm[Hg] Common [facility] height 2021-08-22 10:40:00 61 [in_i] Commo n [facility] weight 2021-08-22 10:40:00 132 [lb_av] Comm on [facility] temperature 2021-08-22 10:40:00 97.5 [degF] Com mon [facility] bmi 2021-08-22 10:40:00 24.94 kg/m2 Comm on [facility] oximetry 2021-08-22 10:40:00 99 % Commo n [facility] respiratory rate 2021-08-22 10:40:00 16 /min Common [facility] blood pressure systolic 2021-08-22 10:40:00 128 mm[Hg] [facility] blood pressure diastolic 2021-08-22 10:40:00 70 mm[Hg] Common [facility] Encounters Start Date/Time End Date/Time Encounter Type Admission Type Attending [facility] Care Facility Care Department Encounter ID Source 2024-06-01 14:23:00 Outpatient Denia Caraballo [facility] [id number] [facility] 2024-05-26 13:23:00 Outpatient CaraballoDenia fiore [facility] [id number] [facility] 2024-04-06 14:05:00 Outpatient CaraballoDenia [facility] [id number] [facility] 2024-03-30 13:20:00 Outpatient CaraballoDenia [facility] [id number] [facility] 2024-03-23 09:39:01 Outpatient CaraballoDenia [facility] [id number] [facility] 2024-01-30 13:54:00 Outpatient CaraballoDenia [facility]C [facility] [id number] [facility] 2023-12-23 09:38:01 Outpatient CaraballoDenia [facility]C [facility] [id number] [facility] 2023-11-25 15:59:00 Outpatient CaraballoDenia fiore [facility] [id number] [facility] 2023-11-05 13:36:01 Outpatient CaraballoDenia fiore [facility] [id number] [facility] 2023-11-01 10:07:00 Outpatient CaraballoDenia [facility]C [facility] [id number] [facility] 2023-07-19 09:03:00 Outpatient CaraballoDenia [facility] [id number] [facility] 2023-03-28 09:41:02 Outpatient CaraballoSalmai [facility] [id number] [facility] 2023-01-07 07:32:00 Outpatient CaraballoDenia [facility] [id number] [facility] 2022-11-22 16:05:01 Outpatient Denia Caraballo [facility] [id number] [facility] 2022-11-05 10:04:01 Outpatient CaraballoDenia fiore STRASH[facility] [id number] [facility] 2022-09-17 09:17:04 Outpatient CaraballoDenia STLMLC [facility] [id number] [facility] 2022-08-27 08:20:01 Outpatient CaraballoDenia [facility]C [facility] [id number] [facility] 2022-02-21 10:45:02 Outpatient CaraballoDenia fiore [facility] [id number] [facility] 2021-12-27 12:56:00 Outpatient CaraballoDenia [facility] [id number] [facility] 2021-12-13 09:28:01 Outpatient Denia Caraballo [facility] [id number] [facility] 2021-11-01 14:39:03 Outpatient Denia Caraballo [facility] [id number] [facility] 2021-08-23 09:46:33 Outpatient CaraballoDenia [facility] [id number] [facility] 2021-08-22 09:14:03 Outpatient Denia Caraballo [facility] [id number] [facility] 2024-05-12 00:00:00 2024-05-12 00:00:00 (TEL) [facility] [id number] [facility] 2024-04-07 00:00:00 2024-04-07 00:00:00 OFFICE VISIT ESTAB PT LEVEL 5 [facility] [id number] [facility] 2024-04-06 00:00:00 2024-04-06 00:00:00 (TEL) [facility] [id number] [facility] 2024-03-20 00:00:00 2024-03-20 00:00:00 (TEL) [facility]C [facility] [id number] [facility] 2024-03-19 00:00:00 2024-03-19 00:00:00 OFFICE VISIT ESTAB PT LEVEL 5 [facility] [id number] [facility] 2024-02-03 00:00:00 2024-02-03 00:00:00 (TEL) [facility]C [facility] [id number] [facility] 2023-11-25 00:00:00 2023-11-25 00:00:00 (TEL) [facility]C [facility] [id number] [facility] 2023-11-05 00:00:00 2023-11-05 00:00:00 OFFICE VISIT ESTAB PT LEVEL 4 [facility] [id number] [facility] 2023-10-28 00:00:00 2023-10-28 00:00:00 (TEL) [facility]C [facility] [id number] [facility] 2023-09-19 00:00:00 2023-09-19 00:00:00 (TEL) [facility]C [facility] [id number] [facility] 2023-08-07 00:00:00 2023-08-07 00:00:00 (TEL) [facility]C [facility] [id number] [facility] 2023-07-29 00:00:00 2023-07-29 00:00:00 (TEL) [facility]C [facility] [id number] [facility] 2023-07-23 00:00:00 2023-07-23 00:00:00 OFFICE VISIT ESTAB PT LEVEL 4 [facility] [id number] [facility] 2023-07-23 00:00:00 2023-07-23 00:00:00 SUB ANNUAL MCR WELLNESS VISIT [facility] [id number] [facility] 2023-07-03 00:00:00 2023-07-03 00:00:00 (TEL) [facility]C [facility] [id number] [facility] 2023-07-02 00:00:00 2023-07-02 00:00:00 (TEL) [facility]C [facility] [id number] [facility] 2023-03-20 00:00:00 2023-03-20 00:00:00 (TEL) [facility]C [facility] [id number] [facility] 2023-03-19 00:00:00 2023-03-19 00:00:00 (TEL) [facility]C [facility] [id number] [facility] 2023-01-07 00:00:00 2023-01-07 00:00:00 OFFICE VISIT ESTAB PT LEVEL 4 [facility] [id number] [facility] 2023-01-07 00:00:00 2023-01-07 00:00:00 SUB ANNUAL MCR WELLNESS VISIT [facility] [id number] [facility] 2022-11-07 00:00:00 2022-11-07 00:00:00 OFFICE VISIT ESTAB PT LEVEL 4 [facility] [id number] [facility] 2022-10-03 00:00:00 2022-10-03 00:00:00 OFFICE VISIT ESTAB PT LEVEL 4 [facility] [id number] [facility] 2022-09-29 00:00:00 2022-09-29 00:00:00 Outpatient DMG DMG [id number] [facility] 2022-09-26 00:00:00 2022-09-26 00:00:00 OFFICE VISIT ESTAB PT LEVEL 2 [facility] ST[facility] [id number] [facility] 2022-09-19 00:00:00 2022-09-19 00:00:00 OFFICE VISIT ESTAB PT LEVEL 5 [facility] [id number] [facility] 2022-09-14 00:00:00 2022-09-14 00:00:00 OFFICE VISIT ESTAB PT LEVEL 4 [facility] [id number] [facility] 2022-08-27 00:00:00 2022-08-27 00:00:00 OFFICE VISIT ESTAB PT LEVEL 3 [facility] [id number] [facility] 2022-08-27 00:00:00 2022-08-27 00:00:00 (TEL) STLMLC ST[facility] [id number] [facility] 2022-08-27 00:00:00 2022-08-27 00:00:00 (TEL) STL[facility]C [facility] [id number] [facility] 2022-04-13 21:00:00 2022-04-13 21:30:00 Care OnNadege Brewer [id number] 675 [facility] 2022-03-29 00:00:00 2022-03-29 00:00:00 (TEL) STLMLC STL[facility] [id number] [facility] 2022-02-26 15:30:00 2022-02-26 16:30:00 LADARIUS Mcadams [id number]. [id number] CLACXCJCZF SHY [facility] 2022-02-21 00:00:00 2022-02-21 00:00:00 Outpatient DMG DM [id number] [facility] 2022-02-15 00:00:00 2022-02-15 00:00:00 (TEL) STLMLC ST[facility] [id number] [facility] 2022-01-12 00:00:00 2022-01-12 00:00:00 OFFICE VISIT ESTAB PT LEVEL 4 [facility]C ST[facility] [id number] [facility] 2022-01-01 00:00:00 2022-01-01 00:00:00 Outpatient DMG DMG [id number] [facility] 2021-12-28 00:00:00 2021-12-28 00:00:00 (HOSP F/U) Hospital Follow Up STLMLC STL[facility]C [id number] [facility] 2021-12-25 00:00:00 2021-12-25 00:00:00 (TEL) STLMLC ST[facility] [id number] [facility] 2021-12-15 00:00:00 2021-12-15 00:00:00 OFFICE VISIT ESTAB PT LEVEL 4 [facility]C ST[facility] [id number] [facility] 2021-12-15 00:00:00 2021-12-15 00:00:00 (MCR WELL) Medicare Wellness STLMLC STL[facility]C [id number] [facility] 2021-12-08 08:03:00 2021-12-08 08:03:00 Outpatient DMG DMG [id number] [facility] 2021-11-10 00:00:00 2021-11-10 00:00:00 (TEL) STLMLC STLMLC [id number] [facility] 2021-11-07 09:00:00 2021-11-07 09:00:00 Outpatient DMG DMG [id number] [facility] 2021-11-03 00:00:00 2021-11-03 00:00:00 (TEL) STLMLC STL[facility]C [id number] [facility] 2021-08-22 00:00:00 2021-08-22 00:00:00 OFFICE VISIT NEW PT LEVEL 4 [facility]C STLMLC [id number] [facility] 2021-07-22 09:00:00 2021-07-22 09:00:00 Outpatient DMG DMG [id number] [facility] Results Test Description Test Time Test Comments Results Result Co mments Source NO URINE PROVIDED:2024-03-19 00:00:00* Test Item Value Reference Range Interpretation Comme nts NUCLEATED RBCS (test code = 39513-1) 0.0 /100 WBC'S See_Comment [Automated message] The system which generated this result transmitted reference range: 0.0 /100 WBC'S. The reference range was not used to interpret this result as normal/abnormal. ABSOLUTE EOSINOPHILS (test code = 09340-4) 0.29 K/UL See_Comment [Automated message] The system which generated this result transmitted reference range: 0.00-0.50 K/UL. The reference range was not used to interpret this result as normal/abnormal. ABSOLUTE LYMPHOCYTES (test code = 39741-5) 2.08 K/UL See_Comment [Automated message] The system which generated this result transmitted reference range: 1.00-4.00 K/UL. The reference range was not used to interpret this result as normal/abnormal. ABSOLUTE MONOCYTES (test code = 02822-5) 0.55 K/UL See_Comment [Automated message] The system which generated this result transmitted reference range: 0.20-1.00 K/UL. The reference range was not used to interpret this result as normal/abnormal. ABSOLUTE NEUTROPHILS (test code = 75804-6) 4.85 K/UL See_Comment [Automated message] The system which generated this result transmitted reference range: 1.50-7.50 K/UL. The reference range was not used to interpret this result as normal/abnormal. BASOPHILS (test code = 96681-4) 0.8 % EOSINOPHILS (test code = 02811-6) 3.7 % HEMATOCRIT (test code = 92622-6) 36.3 % See_Comment [Automated messa ge] The system which generated this result transmitted reference range: 34.0-45.0 %. The reference range was not used to interpret this result as normal/abnormal. HEMOGLOBIN (test code = 718-7) 12.1 G/DL See_Comment [Automated messa ge] The system which generated this result transmitted reference range: 11.5-15.5 G/DL. The reference range was not used to interpret this result as normal/abnormal. LYMPHOCYTES (test code = 28970-4) 26.5 % MCH (test code = 53070-7) 31.6 PG See_Comment [Automated messa ge] The system which generated this result transmitted reference range: 25.0-33.0 PG. The reference range was not used to interpret this result as normal/abnormal. MCHC (test code = 81468-7) 33.3 G/DL See_Comment [Automated messa ge] The system which generated this result transmitted reference range: 31.0-36.0 G/DL. The reference range was not used to interpret this result as normal/abnormal. MCV (test code = 91318-4) 94.8 fL See_Comment [Automated messa ge] The system which generated this result transmitted reference range: 80.0-99.0 fL. The reference range was not used to interpret this result as normal/abnormal. MONOCYTES (test code = 55311-6) 7.0 % NEUTROPHILS (test code = 40958-5) 61.7 % PLATELET COUNT (test code = 74422-9) 353 K/UL See_Comment [Automated messa ge] The system which generated this result transmitted reference range: 130-400 K/UL. The reference range was not used to interpret this result as normal/abnormal. RBC (test code = 59440-8) 3.83 M/UL See_Comment [Automated messa ge] The system which generated this result transmitted reference range: 3.80-5.40 M/UL. The reference range was not used to interpret this result as normal/abnormal. RDW (test code = 42257-0) 12.8 % See_Comment [Automated messa ge] The system which generated this result transmitted reference range: 11.5-15.0 %. The reference range was not used to interpret this result as normal/abnormal. WBC (test code = 44047-4) 7.9 K/UL See_Comment [Automated messa ge] The system which generated this result transmitted reference range: 3.5-11.0 K/UL. The reference range was not used to interpret this result as normal/abnormal. HEMOGLOBIN A1c (test code = 4548-4) 8.7 % See_Comment H [Automated messa ge] The system which generated this result transmitted reference range: 4.2-5.6 %. The reference range was not used to interpret this result as normal/abnormal. CALC LDL CHOL (test code = 98690-7) 122 MG/DL See_Comment H [Automated messa ge] The system which generated this result transmitted reference range: <100 MG/DL. The reference range was not used to interpret this result as normal/abnormal. CHOLESTEROL (test code = 2093-3) 212 MG/DL See_Comment H [Automated messa ge] The [...] normal/abnormal. RISK RATIO LDL/HDL (test code = 72719-1) 2.60 RATIO See_Comment [Automated message] The system which generated this result transmitted reference range: <3.22 RATIO. The reference range was not used to interpret this result as normal/abnormal. TRIGLYCERIDES (test code = 2571-8) 282 MG/DL See_Comment H [Automated messa ge] The system which generated this result transmitted reference range: <150 MG/DL. The reference range was not used to interpret this result as normal/abnormal. FREE T4 (THYROXINE) (test code = 3024-7) 1.08 NG/DL See_Comment [Automated message] The system which generated this result transmitted reference range: 0.80-1.90 NG/DL. The reference range was not used to interpret this result as normal/abnormal. TSH, THIRD GENERATION (test code = 03017-4) 13.900 UIU/ML See_Comment H [Automated message] The system which generated this result transmitted reference range: 0.400-4.100 UIU/ML. The reference range was not used to interpret this result as normal/abnormal. ALBUMIN (test code = 1751-7) 4.6 G/DL See_Comment [Automated [employer] ge] The system which generated this result transmitted reference range: 3.5-5.2 G/DL. The reference range was not used to interpret this result as normal/abnormal. ALKALINE PHOSPHATASE (test code = 6768-6) 32 U/L See_Comment L [Automated message] The system which generated this result transmitted reference range: 40-142 U/L. The reference range was not used to interpret this result as normal/abnormal. BILIRUBIN, TOTAL (test code = 1975-2) 0.8 MG/DL See_Comment [Automated messa ge] The system which generated this result transmitted reference range: <=1.2 MG/DL. The reference range was not used to interpret this result as normal/abnormal. BUN (test code = 3094-0) 14 MG/DL See_Comment [Automated messa ge] The system which generated this result transmitted reference range: 8-23 MG/DL. The reference range was not used to interpret this result as normal/abnormal. CALCIUM (test code = 51661-9) 10.5 MG/DL See_Comment [Automated messa ge] The [...] normal/abnormal. CALC BUN/CREAT (test code = 3097-3) 10 RATIO See_Comment [Automated messa ge] The system which generated this result transmitted reference range: 6-28 RATIO. The reference range was not used to interpret this result as normal/abnormal. CALC GLOBULIN (test code = 46538-3) 2.7 G/DL See_Comment [Automated messa ge] The system which generated this result transmitted reference range: 1.9-3.7 G/DL. The reference range was not used to interpret this result as normal/abnormal. CARBON DIOXIDE (test code = 1963-8) 24 MEQ/L See_Comment [Automated messa ge] The system which generated this result transmitted reference range: 19-31 MEQ/L. The reference range was not used to interpret this result as normal/abnormal. CHLORIDE (test code = 2075-0) 99 MEQ/L See_Comment [Automated messa ge] The system which generated this result transmitted reference range: 95-107 MEQ/L. The reference range was not used to interpret this result as normal/abnormal. CREATININE (test code = 2160-0) 1.38 MG/DL See_Comment H [Automated messa ge] The system which generated this result transmitted reference range: 0.60-1.30 MG/DL. The reference range was not used to interpret this result as normal/abnormal. eGFR (2020 CKD-EPI) (test code = 81276-0) 39 ML/MIN/1.73 See_Comment L [Automated message] The system which generated this result transmitted reference range: >60 ML/MIN/1.73. The reference range was not used to interpret this result as normal/abnormal. GLUCOSE (test code = 1558-6) 252 MG/DL See_Comment H [Automated messa ge] The system which generated this result transmitted reference range: 70-99 MG/DL. The reference range was not used to interpret this result as normal/abnormal. POTASSIUM (test code = 2823-3) 4.8 MEQ/L See_Comment [Automated messa ge] The system which generated this result transmitted reference range: 3.5-5.4 MEQ/L. The reference range was not used to interpret this result as normal/abnormal. PROTEIN, TOTAL (test code = 2885-2) 7.3 G/DL See_Comment [Automated messa ge] The system which generated this result transmitted reference range: 6.1-8.3 G/DL. The reference range was not used to interpret this result as normal/abnormal. AST (test code = 1920-8) 29 U/L See_Comment [Automated messa ge] The system which generated this result transmitted reference range: 9-40 U/L. The reference range was not used to interpret this result as normal/abnormal. ALT (test code = 1742-6) 21 U/L See_Comment [Automated messa ge] The system which generated this result transmitted reference range: 5-40 U/L. The reference range was not used to interpret this result as normal/abnormal. SODIUM (test code = 2951-2) 139 MEQ/L See_Comment [Automated messa ge] The system which generated this result transmitted reference range: 133-146 MEQ/L. The reference range was not used to interpret this result as normal/abnormal. CBC W/AUTO [id number] 00:00:00* Test Item Value Reference Range Interpretation Comme nts NUCLEATED RBCS (test code = 00265-9) 0.0 /100 WBC'S See_Comment [Automated messa ge] The system which generated this result transmitted reference range: 0.0 /100 WBC'S. The reference range was not used to interpret this result as normal/abnormal. ABSOLUTE EOSINOPHILS (test code = 24600-0) 0.19 K/UL See_Comment [Automated messa ge] The system which generated this result transmitted reference range: 0.00-0.50 K/UL. The reference range was not used to interpret this result as normal/abnormal. ABSOLUTE LYMPHOCYTES (test code = 70019-5) 2.32 K/UL See_Comment [Automated messa ge] The system which generated this result transmitted reference range: 1.00-4.00 K/UL. The reference range was not used to interpret this result as normal/abnormal. ABSOLUTE MONOCYTES (test code = 21157-8) 0.51 K/UL See_Comment [Automated messa ge] The system which generated this result transmitted reference range: 0.20-1.00 K/UL. The reference range was not used to interpret this result as normal/abnormal. ABSOLUTE NEUTROPHILS (test code = 01836-7) 3.71 K/UL See_Comment [Automated messa ge] The system which generated this result transmitted reference range: 1.50-7.50 K/UL. The reference range was not used to interpret this result as normal/abnormal. BASOPHILS (test code = 41454-8) 0.7 % EOSINOPHILS (test code = 28947-8) 2.8 % HEMATOCRIT (test code = 47192-6) 35.5 % See_Comment [Automated messa ge] The system which generated this result transmitted reference range: 34.0-45.0 %. The reference range was not used to interpret this result as normal/abnormal. HEMOGLOBIN (test code = 718-7) 12.3 G/DL See_Comment [Automated messa ge] The system which generated this result transmitted reference range: 11.5-15.5 G/DL. The reference range was not used to interpret this result as normal/abnormal. LYMPHOCYTES (test code = 06041-2) 34.1 % MCH (test code = 33088-2) 32.3 PG See_Comment [Automated messa ge] The system which generated this result transmitted reference range: 25.0-33.0 PG. The reference range was not used to interpret this result as normal/abnormal. MCHC (test code = 71681-1) 34.6 G/DL See_Comment [Automated messa ge] The system which generated this result transmitted reference range: 31.0-36.0 G/DL. The reference range was not used to interpret this result as normal/abnormal. MCV (test code = 38138-9) 93.2 fL See_Comment [Automated messa ge] The system which generated this result transmitted reference range: 80.0-99.0 fL. The reference range was not used to interpret this result as normal/abnormal. MONOCYTES (test code = 34602-9) 7.5 % NEUTROPHILS (test code = 18793-1) 54.6 % PLATELET COUNT (test code = 34044-0) 299 K/UL See_Comment [Automated messa ge] The system which generated this result transmitted reference range: 130-400 K/UL. The reference range was not used to interpret this result as normal/abnormal. RBC (test code = 19062-2) 3.81 M/UL See_Comment [Automated messa ge] The system which generated this result transmitted reference range: 3.80-5.40 M/UL. The reference range was not used to interpret this result as normal/abnormal. RDW (test code = 78080-4) 12.3 % See_Comment [Automated messa ge] The system which generated this result transmitted reference range: 11.5-15.0 %. The reference range was not used to interpret this result as normal/abnormal. WBC (test code = 56064-2) 6.8 K/UL See_Comment [Automated messa ge] The system which generated this result transmitted reference range: 3.5-11.0 K/UL. The reference range was not used to interpret this result as normal/abnormal. CBC W/AUTO [id number] 00:00:00* Test Item Value Reference Range Interpretation Comme nts NUCLEATED RBCS (test code = 53709-8) 0.0 /100 WBC'S See_Comment [Automated messa ge] The system which generated this result transmitted reference range: 0.0 /100 WBC'S. The reference range was not used to interpret this result as normal/abnormal. ABSOLUTE EOSINOPHILS (test code = 77642-6) 0.15 K/UL See_Comment [Automated messa ge] The system which generated this result transmitted reference range: 0.00-0.50 K/UL. The reference range was not used to interpret this result as normal/abnormal. ABSOLUTE LYMPHOCYTES (test code = 80202-9) 1.93 K/UL See_Comment [Automated messa ge] The system which generated this result transmitted reference range: 1.00-4.00 K/UL. The reference range was not used to interpret this result as normal/abnormal. ABSOLUTE MONOCYTES (test code = 15704-5) 0.62 K/UL See_Comment [Automated messa ge] The system which generated this result transmitted reference range: 0.20-1.00 K/UL. The reference range was not used to interpret this result as normal/abnormal. ABSOLUTE NEUTROPHILS (test code = 68029-1) 4.24 K/UL See_Comment [Automated messa ge] The system which generated this result transmitted reference range: 1.50-7.50 K/UL. The reference range was not used to interpret this result as normal/abnormal. BASOPHILS (test code = 45086-1) 0.6 % EOSINOPHILS (test code = 81031-5) 2.1 % HEMATOCRIT (test code = 57624-0) 33.5 % See_Comment L [Automated messa ge] [...] result as normal/abnormal. LYMPHOCYTES (test code = 29165-1) 27.6 % MCH (test code = 66886-3) 31.3 PG See_Comment [Automated messa ge] The system which generated this result transmitted reference range: 25.0-33.0 PG. The reference range was not used to interpret this result as normal/abnormal. MCHC (test code = 56451-5) 34.3 G/DL See_Comment [Automated messa ge] The system which generated this result transmitted reference range: 31.0-36.0 G/DL. The reference range was not used to interpret this result as normal/abnormal. MCV (test code = 67675-7) 91.3 fL See_Comment [Automated messa ge] The system which generated this result transmitted reference range: 80.0-99.0 fL. The reference range was not used to interpret this result as normal/abnormal. MONOCYTES (test code = 39816-2) 8.9 % NEUTROPHILS (test code = 11319-1) 60.5 % PLATELET COUNT (test code = 46065-2) 329 K/UL See_Comment [Automated messa ge] The system which generated this result transmitted reference range: 130-400 K/UL. The reference range was not used to interpret this result as normal/abnormal. RBC (test code = 23646-9) 3.67 M/UL See_Comment L [Automated [employer]] The system which generated this result transmitted reference range: 3.80-5.40 M/UL. The reference range was not used to interpret this result as normal/abnormal. RDW (test code = 21284-9) 12.0 % See_Comment [Automated [employer] ge] The system which generated this result transmitted reference range: 11.5-15.0 %. The reference range was not used to interpret this result as normal/abnormal. WBC (test code = 14709-7) 7.0 K/UL See_Comment [Automated [employer] ge] The system which generated this result transmitted reference range: 3.5-11.0 K/UL. The reference range was not used to interpret this result as normal/abnormal.
[2024-06-10] MEDS ORDERED: ONDANSETRON 4 MG/2 ML VIAL ONE ×2 (21:58→23:58)
--- NOTE | 2024-06-10 22:32 | RAD REPORT ---
EXAMINATION: CT HEAD WITHOUT CONTRAST CLINICAL INDICATION: Female, 78 years old.STROKE ALERT TECHNIQUE: Axial CT images from the skull base to the vertex without intravenous contrast. Coronal an d sagittal reformatted images were created from the data set. One or more of the following dose reduction techniques were used: Automated exposure control, adjustment of the mA and/or kV according to patient size, and/or iterative reconstruction. Unless otherwise specified, incidental findings do not require dedicated imaging follow-up. [id number]. COMPARISON: 09/14/2022 FINDINGS: INTRACRANIAL: No acute intracranial hemorrhage. No hydrocephalus. No mass effect or midline shift. Th ere is some subtle loss of mosher-white differentiation in the right MCA territory.Remote left camp radiata lacunar infarct. VASCULATURE: No visualized abnormalities in the arteries or dural venous sinuses. SCALP/SKULL: No significant soft tissue or osseous abnormalities. SINUSES: Mucosal thickening in the left maxillary sinus. IMPRESSION: No acute intracranial hemorrhage. Subtle loss of mosher-white differentiation in the right MCA territor y concerning for early infarct. MRI could better evaluate. Discussed with Dr. Godinez by Dr. Ochoa at 1029 pm on 06/10/24
--- NOTE | 2024-06-10 22:35 | RAD REPORT ---
EXAMINATION: CTA HEAD CLINICAL INDICATION: Female, 78 years old. STROKE ALERT TECHNIQUE: Axial CT images were obtained through the head after intravenous contrast utilizing angiog raphic protocol with 3D post-processing (maximum intensity projection images, volume rendered images and/or shaded surface rendered images). One or more of the following dose reduction technique s were used: Automated exposure control, adjustment of the mA and/or kV according to patient size, and/or iterative reconstruction. Unless otherwise specified, incidental findings do not require dedic ated imaging follow-up. COMPARISON: No prior exam. FINDINGS: ICA: The petrous, cavernous, and supraclinoid segments of the bilateral internal carotid arteries are normal. The ophthalmic artery origins are visualized and normal. The posterior communicating arteries are patent. 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 There is a paucity of vessels in the right MCA territory. The left middle cerebral artery is patent. 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 Left vertebral artery is patent and codominant. The basilar artery is patent. 3D images confirm these findings. 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 Paucity of vessels in the right middle cerebral lisseth ry territory. THIS REPORT CONTAINS FINDINGS THAT MAY BE CRITICAL TO PATIENT CARE. The emergent findings were commun icated to Dr. Godinez on 06/10/2024 10:28 PM
--- NOTE | 2024-06-10 22:37 | RAD REPORT ---
EXAM: Chest Single View HISTORY: stroke COMPARISON: 01/25/2024 FINDINGS: LUNGS/PLEURA: Patchy bilateral interstitial and airspace disease. MEDIASTINUM: The mediastinal silhouette is within normal limits. CARDIAC: Mild cardiomegaly UPPER ABDOMEN: No significant abnormality. BONES: Sternotomy. No acute abnormality. LINES/TUBES/OTHER: Endotracheal tube at the aortic arch. IMPRESSION: Multifocal interstitial and airspace disease could reflect pneumonia or pneumonitis, less likely pulm onary edema.
[2024-06-10 22:40] LABS: Absolute Basophils 0.1 K/uL (0-0.5); Absolute Eosinophils 0.2 K/uL (0-0.5); Absolute Lymphocytes (CBC) 3.8 K/uL (0.7-4.9); Absolute Monocytes 0.6 K/uL (0.1-1.3); Basophils % 0.7 % (0-1.3); Eosinophils % 2.6 % (0-4.4); Hematocrit 33.6 % (36.0-45.0); Hemoglobin 11.5 g/dL (12.0-15.0); Lymphocytes % 43.6 % (15.3-44.8); MCH 32.1 pg (27.0-35.0); MCHC 34.3 g/dL (32.0-36.0); MCV 93.6 fL (80-100); MPV 9.1 fL (7.6-11.3); Monocytes % 7.3 % (3.3-12.3); Neutrophils % 45.8 % (41.7-73.7); Nucleated Red Blood Cells % 0.1 % (0-0); Platelets 303 thou/uL (152-406); RBC Red Blood Cell Count 3.59 M/uL (3.86-4.86); Red Cell Distribution Width 13.1 % (12.1-15.2)
--- NOTE | 2024-06-10 22:41 | RAD REPORT ---
EXAMINATION: CTA NECK CLINICAL INDICATION: Female, 78 years old. stroke allert TECHNIQUE: Axial CT images were obtained from the aortic arch to the skull base after intravenous con trast utilizing angiographic protocol with 3D post-processing (maximum intensity projection images, volume rendered images and/or shaded surface rendered images). One or more of the following dose redu ction techniques were used: Automated exposure control, adjustment of the mA and/or kV according to patient size, and/or iterative reconstruction. Unless otherwise specified, incidental findings do not require dedicated imaging follow-up. [id number]. NASCET criteria used. Mild 0-49% stenosis Moderate 50-69% stenosis Severe 70-99% stenosis COMPARISON: No prior exam. FINDINGS: AORTA: Calcified aortic plaque. CCA: Mild calcified and noncalcified plaque in both common carotid arteries but no flow-limiting sten osis. ICA/ECA: Bilateral internal and external carotid arteries are patent. There is no significant interna l carotid artery stenosis. Where applicable, degree of stenosis is measured using NASCET-like criteria. Calcified and noncalcified plaque is present at the proximal ICAs. VERTEBRAL: The right vertebral artery is nondominant. There is a severe focal stenosis just beyond th e origin. Left vertebral artery is patent. SOFT TISSUE: No significant neck soft tissue abnormalities. Patchy and irregular airspace disease in the upper lungs. Sternotomy. 3D images confirm these findings. IMPRESSION: Atherosclerotic disease but no flow-limiting stenosis involving either carotid system. No dissection. 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
[2024-06-10 22:43] LABS: PT Prothrombin Time 11.9 SECONDS (9.4-12.5); PTT, Activated Partial Thromb 33.6 SECONDS (24.3-36.9); Protime INR 1.13
[2024-06-10] MEDS ORDERED: LEVETIRACETAM 500 MG/5 ML VIAL IV ONE (22:46)
[2024-06-10] MEDS ORDERED: propofoL 1,000 MG/100 ML VIAL IV ONE (22:46)
[2024-06-10] MEDS ORDERED: MIDAZOLAM HCL 5 ML ONE (22:46)
[2024-06-10] MEDS ORDERED: NA CHLORIDE 0.9% 1,000 ML ONE (22:46)
[2024-06-10] MEDS ORDERED: NA CHLORIDE 0.9% 500 ML ONE (22:46)
[2024-06-10] MEDS ORDERED: NA CHLORIDE 0.9% 100 ML ONE (22:47)
[2024-06-10 22:54] LABS: Albumin 3.8 g/dL (3.4-5.0); Albumin/Globulin Ratio 1.1 (1.1-1.8); Anion Gap 12.7 mEq/L (5.0-15.0); Bilirubin Direct 0.2 mg/dL (0-0.2); Bilirubin Indirect, Calculated 0.3 mg/dL (0.2-0.8); Bilirubin Total 0.5 mg/dL (0.2-1.0); Globulin 3.6 g/dL (2.3-3.5); Potassium 3.7 mEq/L (3.5-5.1); Protein, Total 7.4 g/dL (6.4-8.2); Troponin High Sensitivity 11.6 pg/mL (<58.9)
[2024-06-10 22:55] LABS: Magnesium 1.8 mg/dL (1.6-2.4)
--- NOTE | 2024-06-10 22:57 | ER ---
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 BGL is 225. Family called jb4 after checking on her at 2110 after finding her slumped to her left. Pt has a left facial droop, has no response to her left arm. Has painful response to left leg. Pt is altered,oriented x0. Has slurred speech and is drooling. 21:54 Coronavirus screen: At this time, the client does not indicate any symptoms associated jb4 with coronavirus-19. Ebola Screen: No symptoms or risks identified at this time. An acute neurological deficit is present. The charge nurse has been notified. The patients blood glucose was checked prior to arriving to the hospital and was found to be hyperglycemic. The charge nurse has been notified. Initial Sepsis Screen: Does the patient meet any 2 criteria? RR > 20 per min. HR > 90 bpm. Does the patient have a suspected source of infection? No. Patient's initial sepsis screen is negative. Risk Assessment: Do you want to hurt yourself or someone else? Patient reports desire/thoughts of hurting themselves or someone else. Provider notified. Onset of symptoms was June 10, 2024. Transition of care: patient was not received from another setting of care. 21:54 Method Of Arrival: EMS: [facility] jb4 21:54 Acuity: DIANELYS 1 jb4 Stroke Activation: Symtpom onset >3 hours and < 6 hours Physician: ED Attending; Name: MD Herbert; Notified At: 21:54; Arrived At: 21:54 Physician: Mid-Level Provider; Name: ; Notified At: 21:54; Arrived At: Physician: [not used]; Name: ; Notified At: ; Arrived At: Physician: [not used]; Name: ; Notified At: ; Arrived At: Physician: [not used]; Name: ; Notified At: ; Arrived At: Historical: - Allergies: 22:33 Depo-Provera; jb4 22:33 Vicodin; jb4 - Home Meds: 22:39 fenofibrate 160 mg oral tablet daily [Active]; metformin 500 mg oral tablet 2 times per vc1 day [Active]; lisinopril 40 mg oral tablet daily [Active]; hydrochlorothiazide 25 mg Oral tablet every morning [Active]; Metoprolol Succinate ER 200 mg daily [Active]; glimepiride 2 mg oral tablet every morning [Active]; atorvastatin 40 mg Oral tablet daily [Active]; levothyroxine 100 mcg oral tablet daily [Active]; - PMHx: 22:33 diabetes mellitus; Pneumonia; Hypothyroidism; Myocardial infarction; jb4 - PSHx: 22:33 triple bypass; jb4 - Immunization history:: Adult Immunizations unknown. - Infectious Disease History:: Denies. - Family history:: not pertinent. - Social history:: Smoking status: unknown. Screenin:00 [facility] ED Fall Risk Assessment (Adult) History of falling in the last 3 months, ay including since admission No falls in past 3 months (0 pts) Confusion or Disorientation No (0 pts) Intoxicated or Sedated No (0 pts) Impaired Gait No (0 pts) Mobility Assist Device Used No (0 pt) Altered Elimination No (0 pt) Score/Fall Risk Level 0 - 2 = Low Risk Oriented to surroundings, Maintained a safe environment, Educated pt \T\ family on fall prevention, incl call for assistance when getting out of bed. Abuse screen: Denies threats or abuse. Nutritional screening: No deficits noted. Tuberculosis screening: No symptoms or risk factors identified. Assessment: 21:54 VAN Scoring: Arm Drift: Flaccid/no antigravity Neglect: Forced gaze noted or unable to jb4 track to one side. Provider notified of +VAN scoring. [place] Swallow Protocol Exclusion Criteria: Unable to remain alert for testing: Yes Brief Cognitive Screen What is your name? Abnormal Where are you right now? Abnormal What year is it? Abnormal Result: FAIL Notified: Kendrick Godinez MD. TNKase (Tenecteplase) Screening: Contraindications: Other: Symptom onset 1700, ER physician decided against TNK. General: Appears distressed, ill, Behavior is uncooperative. Pain: Unable to use pain scale. Patient is disoriented. Neuro: Level of Consciousness is awake, confused, Oriented to none. Cardiovascular: skin is warm and clammy. Respiratory: Airway is compromised Respiratory effort is labored, Pt profusely vomiting. Derm: Skin is intact, Skin is clammy, Skin is pale, Skin temperature is warm. Musculoskeletal: Range of motion: limited in left shoulder, left elbow, left wrist, left hip, left knee and left ankle. 22:04 Reassessment: Pt intubated. jb4 22:18 Reassessment: pt to CT. jb4 23:00 Reassessment: Report given to ALBERT Stroud. jb4 06/11 01:30 Reassessment: EMS administered diltiazem prior to transfer and asked that the diltiazem ay gtt should not be administered. The pt's BP at the time of transfer was significantly lower on EMS monitor than those recorded on our monitor. Vital Signs: 06/10 21:54 BP 175 / 115; Pulse 121; Resp 22 S; Pulse Ox 100% on R/A; Weight 61.69 kg (M); jb4 21:58 BP 75 / 115; Pulse 110; Resp 22; Pulse Ox 100% ; ay 22:00 BP 195 / 104; Pulse 107; Resp 14; Pulse Ox 100% ; ay 22:45 BP 179 / 111; Pulse 99; Resp 16; Pulse Ox 100% on ETT vent; ay 23:00 BP 196 / 109; Pulse 107; Resp 16; Pulse Ox 100% on ETT vent; ay 23:15 BP 198 / 137; Pulse 110; Resp 16; Pulse Ox 100% on ETT vent; ay 23:30 BP 196 / 112; Pulse 108; Resp 16; Pulse Ox 100% on ETT vent; ay 23:55 BP 203 / 131; Pulse 114; Resp 16; Pulse Ox 100% on ETT vent; ay 06/11 00:26 Temp 92(R); jb4 00:26 warm blankets applied. jb4 Abiquiu Coma Score: 06/10 22:31 Eye Response: spontaneous(4). Motor Response: obeys commands(6). Verbal Response: sp4 confused(4). Total: 14. NIH Stroke Scale Scores: 21:54 NIHSS Score: 16 jb4 22:11 NIHSS Score: 16 sp4 ED Course: 21:54 Patient arrived in ED. jj6 22:08 Kendrick Godinez MD is Attending Physician. sp4 22:22 CT Head Angio In Process Unspecified. EDMS 22:22 CT Head Brain wo Cont In Process Unspecified. EDMS 22:22 CT Neck Angio In Process Unspecified. EDMS 22:33 Triage completed. jb4 22:33 Arm band placed on right wrist. jb4 22:34 Stroke CXR 1 View In Process Unspecified. EDMS 22:55 Attempted to initiate transfer with [facility], no answer. Will call back. rv1 23:00 Patient has correct armband on for positive identification. Bed in low position. Call ay light in reach. Side rails up X2. 23:06 Attempted to initiate transfer with [facility], no answer. Provider and Charge Nurse rv1 notified. 23:09 Initiated transfer with Robert at [facility]. rv1 23:29 Doc to Doc with Stroke Specialist. rv1 23:43 pt accepted to [facility] Neuro ICU by Dr. Reed. [facility] contacted by 1 transfer center. 06/11 00:00 Patient transferred, IV remains in place. ay 00:03 [facility] gave 5-10 minute ETA. rv1 00:17 SARS RAPID Sent. ay 00:17 Influenza Screen (a \T\ B) Sent. ay 00:17 Blood Culture Adult (2) Sent. ay 00:19 Luanne Rocha, RN is Primary Nurse. ay 00:24 Jeff cath inserted, using sterile technique, 16 Fr., by me, balloon inflated, to jb4 gravity drainage, NGT: inserted 16 Fr. via right nare. verified placement of air over stomach. Administered Medications: 06/10 22:04 Drug: Etomidate IVP 20 mg IVP once Route: IVP; Site: left antecubital; jb4 22:04 Drug: Rocuronium IVP 100 mg IVP once Route: IVP; Site: left antecubital; jb4 22:58 Drug: Propofol IV 5 mcg/kg/min IV at calculated rate See Administration Instructions; jb4 Standard concentration 1000 mg / 100 mL; Recommended max rate 50 mcg/kg/min; Titrate 5 mcg/kg/min every 5 minutes to achieve goal (see titration policy); Goal parameter RASS score 0 to -2 Route: IV; Rate: calculated rate; Site: left antecubital; 22:59 Drug: Midazolam IVP or IV 5 mg IVP once Route: IVP; Site: right antecubital; jb4 22:59 Drug: NS 0.9% IV 1000 ml IV at 125 ml/hr Per protocol; to be given as a bolus over 60 jb4 minutes Route: IV; Rate: 125 ml/hr; Site: left antecubital; 22:59 Drug: Keppra IV 1000 mg IV at bolus once Route: IV; Rate: bolus; Site: right jb4 antecubital; 23:00 Drug: NS 0.9% IV 500 ml 500 ml IV at 1 bolus once; to be given as a bolus over 30 jb4 minutes Volume: 500 ml; Route: IV; Rate: 1 bolus; Site: right antecubital; 06/11 00:16 Drug: Ondansetron IVP 8 mg IVP once; over 2 minutes Route: IVP; Site: right antecubital;ay 00:43 Follow up: Response: No adverse reaction ay 00:17 Drug: Rocephin - Rocephin (cefTRIAXone) IVPB 1 grams IVPB once over 30 mins; (mix in 50 ay mL NS) Route: IVPB; Infused Over: 30 mins; Site: right antecubital; 00:17 Drug: metroNIDAZOLE IVPB 500 mg 100 ml IVPB at 200 ml/hr once over 30 mins Volume: 100 ay ml; Route: IVPB; Rate: 200 ml/hr; Infused Over: 30 mins; Site: right antecubital; 00:17 Drug: Aspirin [place] Suppository 300 mg [place] once Route: [place]; ay 00:41 Not Given (EMS stated they will administer their own med): diltiazem 5 mg/hr IV at ay calculated rate See Administration Instructions; (standard dilution 125 mg diltiazem mixed in 125 mL NS; final concentration 1mg/mL). Recommended max rate 15 mg/hr; Titrate 5 mg/hr as often as every 15 minutes to achieve goal (see titration policy); Goal parameter HR less than 100 bpm 00:43 Not Given (EMS administered their med): [id number] mg IVP once; Over 2 minutes ay Outcome: 01/15 22:57 ER care complete, transfer ordered by MD. lunsford 06/11 00:[address] [facility], Condition: stable 01:36 Patient left the ED. ay NIH Stroke Scale - NIH Stroke Score Date: 06/10/2024 Time: 21:54 Total Score = 16 10. Dysarthria (speech clarity - read or repeat words) - 1(Mild to Moderate) 11. Extinction and Inattention (visual/tactile/auditory/spatial/personal) - 1(Present) 1a. Level of Consciousness (LOC) - 0(Alert) 1b. Level of Consciousness (LOC) (Month \T\ Age) - 0(Both) 1c. LOC Commands (Open \T\ Closes Eyes/Youth Pastor) - 0(Both) 2. Best Gaze (Lateral Gaze Paresis) - 2(Forced deviation) 3. Visual Field Loss - 0(No visual loss) 4. Facial Palsy - 2(Partial paralysis) 5a. Left Arm: Motor (10-second hold) - 4(No movement) 5b. Right Arm: Motor (10-second hold) - 0(No drift) 6a. Left Leg: Motor (5-second hold - always test supine) - 4(No movement) 6b. Right Leg: Motor (5-second hold - always test supine) - 0(No drift) 7. Limb Ataxia (finger/nose \T\ heel/barcenas - test with eyes open) - 0(Absent) 8. Sensory Loss (pinprick arms/legs/face) - 0(Normal) 9. Best Language: Aphasia (description/naming/reading) - 2(Severe aphasia) Initials: jb4 NIH Stroke Scale - NIH Stroke Score Date: 06/10/2024 Time: 22:11 Total Score = 16 10. Dysarthria (speech clarity - read or repeat words) - 1(Mild to Moderate) 11. Extinction and Inattention (visual/tactile/auditory/spatial/personal) - 0(No abnormality) 1a. Level of Consciousness (LOC) - 0(Alert) 1b. Level of Consciousness (LOC) (Month \T\ Age) - 0(Both) 1c. LOC Commands (Open \T\ Closes Eyes/Youth Pastor) - 0(Both) 2. Best Gaze (Lateral Gaze Paresis) - 2(Forced deviation) 3. Visual Field Loss - 0(No visual loss) 4. Facial Palsy - 2(Partial paralysis) 5a. Left Arm: Motor (10-second hold) - 4(No movement) 5b. Right Arm: Motor (10-second hold) - 0(No drift) 6a. Left Leg: Motor (5-second hold - always test supine) - 4(No movement) 6b. Right Leg: Motor (5-second hold - always test supine) - 0(No drift) 7. Limb Ataxia (finger/nose \T\ heel/barcenas - test with eyes open) - 0(Absent) 8. Sensory Loss (pinprick arms/legs/face) - 2(Severe to total loss) 9. Best Language: Aphasia (description/naming/reading) - 1(Mild to moderate aphasia) Initials: sp4 Signatures: Dispatcher [employer] EDMS Gregory Hollis RN RN jb4 Sharmin Addison6 Jenny Rodriguez RN RN vc1 Lesia Larson rv1 Kendrick Godinez MD MD sp4 Luanne Rocha RN RN ay Corrections: (The following items were deleted from the chart) 06/10 22:38 21:54 BP 175 / 115; Pulse 121bpm; Resp 22bpm; Spontaneous; Pulse Ox 100% RA; [id number] 06/11 02:18 06/10 23:00 Reassessment: Report given to ALBERT Rod jb4 jb4
--- NOTE | 2024-06-10 22:57 | EDPHYS ---
Physician Documentation [facility] Name: Isabel Henry Age: 78 yrs Sex: Female : 1945 Arrival Date: 06/10/2024 Time: 21:53 Bed 17 Private MD: ED Physician Kendrick Godinez HPI: 06/10 22:13 This 78 yrs old Female presents to ER via Unassigned with complaints of S/S of sp4 Possible Stroke. 22:30 78-year-old female presents with acute dense left hemiparesis. Last known well sp4 at 5 PM today. Patient arrived at 10 PM. On arrival patient has complete left-sided hemiparesis associated with left facial paralysis also loss of sensation on the left side. Aphasia and dysarthria. Patient has developed profuse vomiting on arrival with concern for acute intracranial hemorrhage. Patient was not able to provide any meaningful history on arrival. Patient had to be intubated to secure her airway prior to CAT scan.. 22:31 Based on the last known well patient is out of the window for tenecteplase. . sp4 Historical: - Allergies: 22:33 Depo-Provera; jb4 22:33 Vicodin; jb4 - Home Meds: 22:39 fenofibrate 160 mg oral tablet daily [Active]; metformin 500 mg oral tablet 2 times per vc1 day [Active]; lisinopril 40 mg oral tablet daily [Active]; hydrochlorothiazide 25 mg Oral tablet every morning [Active]; Metoprolol Succinate ER 200 mg daily [Active]; glimepiride 2 mg oral tablet every morning [Active]; atorvastatin 40 mg Oral tablet daily [Active]; levothyroxine 100 mcg oral tablet daily [Active]; - PMHx: 22:33 diabetes mellitus; Pneumonia; Hypothyroidism; Myocardial infarction; jb4 - PSHx: 22:33 triple bypass; jb4 - Immunization history:: Adult Immunizations unknown. - Infectious Disease History:: Denies. - Family history:: not pertinent. - Social history:: Smoking status: unknown. ROS: 22:31 Constitutional: Negative for fever, chills, and weight loss, positive for acute sp4 left-sided weakness positive for acute vomiting 22:31 All other systems are negative, Exam: 22:31 Radiologist reports: Acute proximal M2 occlusion on CT angiography. No sign of sp4 intracranial hemorrhage. 22:31 Constitutional: Frail elderly female, in no acute distress actively vomiting on arrival. Dense left-sided hemiparesis with loss of sensation on the left side positive left facial asymmetry. Positive aphasia and dysarthria. Patient not able to fully cooperate for examination. Head/Face: Normocephalic, atraumatic. Left-sided hemiparesis. Eyes: Pupils equal round and reactive to light, patient has gaze deviation to the right. Visual cota cannot be checked on arrival. ENT: Nares patent. No nasal discharge, no septal abnormalities noted. Tympanic membranes are normal and external auditory canals are clear. Oropharynx with no redness, swelling, or masses, exudates, Mucous membranes moist. Active vomiting with signs of emesis aspiration. Neck: Trachea midline, no thyromegaly or masses palpated, and no cervical lymphadenopathy. Supple, full range of motion without nuchal rigidity, or vertebral point tenderness. Chest/axilla: Normal chest wall appearance and motion. Nontender with no deformity. No lesions are appreciated. Cardiovascular: Regular rate and rhythm with a normal S1 and S2. No gallops, murmurs, or rubs. Normal PMI, no JVD. No pulse deficits. Respiratory: Lungs have equal breath sounds bilaterally, clear to auscultation and percussion. No rales, rhonchi or wheezes noted. No increased work of breathing, no retractions or nasal flaring. Abdomen/GI: Soft, with normal bowel sounds. No distension or tympany. No guarding or rebound. No evidence of tenderness throughout. Back: No spinal tenderness. No costovertebral tenderness. Skin: Warm, dry with normal turgor. Normal color with no rashes, no lesions, and no evidence of cellulitis. MS/ Extremity: Pulses equal, no cyanosis. Patient has dense left-sided hemiparesis with no movement on the left side. Patient has normal movement on the right side. Distal pulses are intact. Neuro: Awake and alert, GCS 14, oriented to person, patient has dense left-sided hemiparesis, strength 0 out of 5 left arm and 1 out of 5 left leg. Patient has loss of sensation on the left side, left facial paralysis. Oriented to self only. Able to follow basic commands. Gaze deviation to the right. Vital Signs: 21:54 BP 175 / 115; Pulse 121; Resp 22 S; Pulse Ox 100% on R/A; Weight 61.69 kg (M); jb4 21:58 BP 75 / 115; Pulse 110; Resp 22; Pulse Ox 100% ; ay 22:00 BP 195 / 104; Pulse 107; Resp 14; Pulse Ox 100% ; ay 22:45 BP 179 / 111; Pulse 99; Resp 16; Pulse Ox 100% on ETT vent; ay 23:00 BP 196 / 109; Pulse 107; Resp 16; Pulse Ox 100% on ETT vent; ay 23:15 BP 198 / 137; Pulse 110; Resp 16; Pulse Ox 100% on ETT vent; ay 23:30 BP 196 / 112; Pulse 108; Resp 16; Pulse Ox 100% on ETT vent; ay 23:55 BP 203 / 131; Pulse 114; Resp 16; Pulse Ox 100% on ETT vent; ay 06/11 00:26 Temp 92(R); jb4 00:26 warm blankets applied. jb4 NIH Stroke Scale Scores: 06/10 21:54 NIHSS Score: 16 jb4 22:11 NIHSS Score: 16 sp4 Eunice Coma Score: 22:31 Eye Response: spontaneous(4). Motor Response: obeys commands(6). Verbal Response: sp4 confused(4). Total: 14. Procedures: 22:38 Intubation: Ventilated with 100% NRB prior to procedure. Intubated [place] scope assisted sp4 intubation using S3 with 7.5 mm ETT. was successful on first attempt. Ventilated with Ambu bag. ventilator. Tube secured with tape at center of mouth measured 22 cm at lip. Placement verified by CXR, CO2 detector with (+) color change, auscultating bilateral breath sounds, O2 saturation after procedure was 100 %. Patient tolerated well. MDM: 22:18 Medical Screening Exam initiated sp4 22:40 Differential diagnosis: CVA, TIA, Dementia, paralysis, metabolic disorder, drug sp4 effects. TNKase (Tenecteplase) Screening: Contraindications: Other: Patient is out of side of the window for tenecteplase. Data reviewed: vital signs, nurses notes, EMS record, old medical records, lab test result(s), EKG, radiologic studies, CT scan. 22:51 ED course: EXAM: Chest Single View HISTORY: stroke COMPARISON: 01/25/2024 FINDINGS: sp4 LUNGS/PLEURA: Patchy bilateral interstitial and airspace disease. MEDIASTINUM: The mediastinal silhouette is within normal limits. CARDIAC: Mild cardiomegaly UPPER ABDOMEN: No significant abnormality. BONES: Sternotomy. No acute abnormality. LINES/TUBES/OTHER: Endotracheal tube at the aortic arch. IMPRESSION: Multifocal interstitial and airspace disease could reflect pneumonia or pneumonitis, less likely pulmonary edema. . ED course: EXAMINATION: CTA HEAD CLINICAL INDICATION: Female, 78 years old. STROKE ALERT TECHNIQUE: Axial CT images were obtained through the head after intravenous contrast utilizing angiographic protocol with 3D post-processing (maximum intensity projection images, volume rendered images and/or shaded surface rendered images). One or more of the following dose reduction techniques were used: Automated exposure control, adjustment of the mA and/or kV according to patient size, and/or iterative reconstruction. Unless otherwise specified, incidental findings do not require dedicated imaging follow-up. COMPARISON: No prior exam. FINDINGS: ICA: The petrous, cavernous, and supraclinoid segments of the bilateral internal carotid arteries are normal. The ophthalmic artery origins are visualized and normal. The posterior communicating arteries are patent. 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 There is a paucity of vessels in the right MCA territory. The left middle cerebral artery is patent. ROTARY DRIER FEEDER: Posterior cerebral arteries are normal bilaterally. 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 Left vertebral artery is patent and codominant. The basilar artery is patent. 3D images confirm these findings. 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 Paucity of vessels in the right middle cerebral artery territory. THIS REPORT CONTAINS FINDINGS THAT MAYBE CRITICAL TO PATIENT CARE. The emergent findings were communicated to Dr. Godinez on 06/10/2024 10:28 PM Reported By: Volodymyr Ochoa . ED course: EXAMINATION: CT HEAD WITHOUT CONTRAST CLINICAL INDICATION: Female, 78 years old.STROKE ALERT TECHNIQUE: Axial CT images from the skull base to the vertex without intravenous contrast. Coronal and sagittal reformatted images were created from the data set. One or more of the following dose reduction techniques were used: Automated exposure control, adjustment of the mA and/or kV according to patient size, and/or iterative reconstruction. Unless otherwise specified, incidental findings do not require dedicated imaging follow-up. [id number]. COMPARISON: 09/14/2022 FINDINGS: INTRACRANIAL: No acute intracranial hemorrhage. No hydrocephalus. No mass effect or midline shift. There is some subtle loss of mosher-white differentiation in the right MCA territory.Remote left camp radiata lacunar infarct. VASCULATURE: No visualized abnormalities in the arteries or dural venous sinuses. SCALP/SKULL: No significant soft tissue or osseous abnormalities. SINUSES: Mucosal thickening in the left maxillary sinus. IMPRESSION: No acute intracranial hemorrhage. Subtle loss of mosher-white differentiation in the right MCA territory concerning for early infarct. MRI could better evaluate. Discussed with Dr. Godinez by Dr. Ochoa at 1029 pm on 06/10/24. ED course: EXAMINATION: CTA NECK CLINICAL INDICATION: Female, 78 years old. stroke allert TECHNIQUE: Axial CT images were obtained from the aortic arch to the skull base after intravenous contrast utilizing angiographic protocol with 3D post-processing (maximum intensity projection images, volume rendered images and/or shaded surface rendered images). One or more of the following dose reduction techniques were used: Automated exposure control, adjustment of the mA and/or kV according to patient size, and/or iterative reconstruction. Unless otherwise specified, incidental findings do not require dedicated imaging follow-up. [id number]. NASCET criteria used. Mild 0-49% stenosis Moderate 50-69% stenosis Severe 70-99% stenosis COMPARISON: No prior exam. FINDINGS: AORTA: Calcified aortic plaque. CCA: Mild calcified and noncalcified plaque in both common carotid arteries but no flow-limiting stenosis. ICA/ECA: Bilateral internal and external carotid arteries are patent. There is no significant internal carotid artery stenosis. Where applicable, degree of stenosis is measured using NASCET-like criteria. Calcified and noncalcified plaque is present at the proximal ICAs. VERTEBRAL: The right vertebral artery is nondominant. There is a severe focal stenosis just beyond the origin. Left vertebral artery is patent. SOFT TISSUE: No significant neck soft tissue abnormalities. Patchy and irregular airspace disease in the upper lungs. Sternotomy. 3D images confirm these findings. IMPRESSION: Atherosclerotic disease but no flow-limiting stenosis involving either carotid system. No dissection. 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 . 06/10 22:10 Order name: Basic Metabolic Panel; Complete Time: 23:21 sp4 06/10 22:10 Order name: CBC with Diff; Complete Time: 23:21 sp4 06/10 22:10 Order name: Hepatic Function; Complete Time: 23:21 sp4 06/10 22:10 Order name: High Sensitivity Troponin; Complete Time: 23:21 sp4 06/10 22:10 Order name: Magnesium; Complete Time: 23:21 sp4 06/10 22:10 Order name: Protime (+inr); Complete Time: 23:21 sp4 06/10 22:10 Order name: Ptt, Activated; Complete Time: 23:21 sp4 06/10 22:50 Order name: Blood Culture Adult (2) [facility] 06/10 22:50 Order name: Influenza Screen (a \T\ B); Complete Time: 01:18 sp4 06/10 22:50 Order name: SARS RAPID; Complete Time: :18 sp4 06/10 23:04 Order name: Glucose, Ancillary Testing; Complete Time: 23:21 EDNM 06/10 22:09 Order name: CT Head Angio; Complete Time: 23:21 sp4 06/10 22:09 Order name: CT Head Brain wo Cont; Complete Time: 23:21 sp4 06/10 22:09 Order name: CT Neck Angio; Complete Time: 23:21 sp4 06/10 22:10 Order name: Stroke CXR 1 View; Complete Time: 23:21 sp4 06/10 22:10 Order name: Cardiac monitoring; Complete Time: 22:39 4 06/10 22:10 Order name: IV Saline Lock; Complete Time: 22:39 sp4 06/10 22:10 Order name: Labs collected and sent; Complete Time: 22:41 sp4 06/10 22:10 Order name: NPO; Complete Time: 22:39 sp4 06/10 22:10 Order name: O2 Per Protocol; Complete Time: 22:39 4 06/10 22:10 Order name: O2 Sat Monitoring; Complete Time: 22:39 sp4 06/10 22:10 Order name: Stroke Swallow Screen; Complete Time: 22:39 sp4 06/10 22:11 Order name: Intubation Setup; Complete Time: 22:39 sp4 06/10 23:34 Order name: Jeff; Complete Time: 00:17 sp4 06/10 23:57 Order name: NG Tube; Complete Time: 00:41 sp4 Administered Medications: 22:04 Drug: Etomidate IVP 20 mg IVP once Route: IVP; Site: left antecubital; jb4 22:04 Drug: Rocuronium IVP 100 mg IVP once Route: IVP; Site: left antecubital; 4 22:58 Drug: Propofol IV 5 mcg/kg/min IV at calculated rate See Administration Instructions; 4 Standard concentration 1000 mg / 100 mL; Recommended max rate 50 mcg/kg/min; Titrate 5 mcg/kg/min every 5 minutes to achieve goal (see titration policy); Goal parameter RASS score 0 to -2 Route: IV; Rate: calculated rate; Site: left antecubital; 22:59 Drug: Midazolam IVP or IV 5 mg IVP once Route: IVP; Site: right antecubital; [facility] 22:59 Drug: NS 0.9% IV 1000 ml IV at 125 ml/hr Per protocol; to be given as a bolus over 60 jb4 minutes Route: IV; Rate: 125 ml/hr; Site: left antecubital; 22:59 Drug: Keppra IV 1000 mg IV at bolus once Route: IV; Rate: bolus; Site: right jb4 antecubital; 23:00 Drug: NS 0.9% IV 500 ml 500 ml IV at 1 bolus once; to be given as a bolus over 30 jb4 minutes Volume: 500 ml; Route: IV; Rate: 1 bolus; Site: right antecubital; 06/11 00:16 Drug: Ondansetron IVP 8 mg IVP once; over 2 minutes Route: IVP; Site: right antecubital;ay 00:43 Follow up: Response: No adverse reaction ay 00:17 Drug: Rocephin - Rocephin (cefTRIAXone) IVPB 1 grams IVPB once over 30 mins; (mix in 50 ay mL NS) Route: IVPB; Infused Over: 30 mins; Site: right antecubital; 00:17 Drug: metroNIDAZOLE IVPB 500 mg 100 ml IVPB at 200 ml/hr once over 30 mins Volume: 100 ay ml; Route: IVPB; Rate: 200 ml/hr; Infused Over: 30 mins; Site: right antecubital; 00:17 Drug: Aspirin IL Suppository 300 mg IL once Route: IL; ay 00:41 Not Given (EMS stated they will administer their own med): diltiazem 5 mg/hr IV at ay calculated rate See Administration Instructions; (standard dilution 125 mg diltiazem mixed in 125 mL NS; final concentration 1mg/mL). Recommended max rate 15 mg/hr; Titrate 5 mg/hr as often as every 15 minutes to achieve goal (see titration policy); Goal parameter HR less than 100 bpm 00:43 Not Given (EMS administered their med): mg IVP once; Over 2 minutes ay Disposition Summary: 06/10/24 22:57 Transfer Ordered Notes: Reason: Higher level of care sp4 Condition: Stable sp4 Problem: new sp4 Symptoms: have improved sp4 Transfer Location: [facility](06/10/24 23:45) sp4 Accepting Physician: Syed Vikas at [facility](06/11/24 01:36) ay Diagnosis - Acute right MCA occlusion proximal M2 segment, acute ischemic stroke, acute left sp4 hemiparesis, acute aspiration of gastric contents with bilateral pneumonitis Forms: - Medication Reconciliation Form sp4 - SBAR form sp4 Critical care time excluding procedures: 06/10 22:35 Critical care time: Bedside Care: 36 minutes, Consultation: 12 minutes, Family sp4 Intervention: 12 minutes. Total time: 60 minutes NIH Stroke Scale - NIH Stroke Score Date: 06/10/2024 Time: 21:54 Total Score = 16 10. Dysarthria (speech clarity - read or repeat words) - 1(Mild to Moderate) 11. Extinction and Inattention (visual/tactile/auditory/spatial/personal) - 1(Present) 1a. Level of Consciousness (LOC) - 0(Alert) 1b. Level of Consciousness (LOC) (Month \T\ Age) - 0(Both) 1c. LOC Commands (Open \T\ Closes Eyes/Facilities Supervisor) - 0(Both) 2. Best Gaze (Lateral Gaze Paresis) - 2(Forced deviation) 3. Visual Field Loss - 0(No visual loss) 4. Facial Palsy - 2(Partial paralysis) 5a. Left Arm: Motor (10-second hold) - 4(No movement) 5b. Right Arm: Motor (10-second hold) - 0(No drift) 6a. Left Leg: Motor (5-second hold - always test supine) - 4(No movement) 6b. Right Leg: Motor (5-second hold - always test supine) - 0(No drift) 7. Limb Ataxia (finger/nose \T\ heel/barcenas - test with eyes open) - 0(Absent) 8. Sensory Loss (pinprick arms/legs/face) - 0(Normal) 9. Best Language: Aphasia (description/naming/reading) - 2(Severe aphasia) Initials: jb4 NIH Stroke Scale - NIH Stroke Score Date: 06/10/2024 Time: 22:11 Total Score = 16 10. Dysarthria (speech clarity - read or repeat words) - 1(Mild to Moderate) 11. Extinction and Inattention (visual/tactile/auditory/spatial/personal) - 0(No abnormality) 1a. Level of Consciousness (LOC) - 0(Alert) 1b. Level of Consciousness (LOC) (Month \T\ Age) - 0(Both) 1c. LOC Commands (Open \T\ Closes Eyes/Facilities Supervisor) - 0(Both) 2. Best Gaze (Lateral Gaze Paresis) - 2(Forced deviation) 3. Visual Field Loss - 0(No visual loss) 4. Facial Palsy - 2(Partial paralysis) 5a. Left Arm: Motor (10-second hold) - 4(No movement) 5b. Right Arm: Motor (10-second hold) - 0(No drift) 6a. Left Leg: Motor (5-second hold - always test supine) - 4(No movement) 6b. Right Leg: Motor (5-second hold - always test supine) - 0(No drift) 7. Limb Ataxia (finger/nose \T\ heel/barcenas - test with eyes open) - 0(Absent) 8. Sensory Loss (pinprick arms/legs/face) - 2(Severe to total loss) 9. Best Language: Aphasia (description/naming/reading) - 1(Mild to moderate aphasia) Initials: sp4 Addendum: 06/12/2024 06:13 Addendum: EKG at 2247 06/10/2024 atrial fibrillation rate 116, no ST elevation sp4 or depression, no other ectopy, positive for atrial fibrillation with RVR. Ventricular rate 116.. Signatures: Dispatcher [employer] EDMS Gregory Hollis, RN RN jb4 Jenny Rodriguez RN RN vc1 Kendrick Godinez MD MD sp4 Luanne Rocha RN RN ay Corrections: (The following items were deleted from the chart) 06/10 22:09 22:09 Neck Angio+CT.RAD.BRZ ordered. EDMS EDMS 22:10 22:10 BASIC METABOLIC PANEL+C.LAB.BRZ ordered. EDMS EDMS 22:10 22:10 CBC+H.LAB.BRZ ordered. EDMS EDMS 22:10 22:10 HEPATIC FUNCTION+C.LAB.BRZ ordered. EDMS EDMS 22:10 22:10 Troponin High Sensitivity+C.LAB.BRZ ordered. EDMS EDMS 22:10 22:10 MAGNESIUM+C.LAB.BRZ ordered. EDMS EDMS 22:10 22:10 PROTIME (+INR)+COAG.LAB.BRZ ordered. EDMS EDMS 22:10 22:10 PTT, ACTIVATED+COAG.LAB.BRZ ordered. EDMS EDMS 22:10 22:10 URINE DRUG SCREEN+UC.LAB.BRZ ordered. EDMS EDMS 22:10 22:10 Chest Single View+RAD.RAD.BRZ ordered. EDMS EDMS 23:45 22:57 [facility] neurology sp4 sp4 23:45 22:57 [facility] sp4 sp4 06/11 01:36 06/10 23:45 [facility] sp4 ay
[2024-06-10] MEDS ORDERED: ASPIRIN 300 MG/SUPP ONE (23:58)
[2024-06-10] MEDS ORDERED: CEFTRIAXONE 1000 MG/VIAL ONE (23:58)
[2024-06-10] MEDS ORDERED: METRONIDAZOLE 500mg IVPB 500 MG/100 ML BAG IV ONE (23:59)
[2024-06-10] MEDS ORDERED: NA CHLORIDE 0.9% 50 ML ONE (23:59)
[2024-06-11 00:31] LABS: SARS-CoV-2 Antigen CONTROL BLUE LINE VIS/BG OK; SARS-CoV-2 Antigen Rapid Res Negative (Negative)
--- NOTE | 2024-06-11 11:44 | EKG ---
Test Date: 2024-06-10 Test Time: 22:47:16 Nitrator Operator: LISA MEASUREMENT RESULTS: Intervals: Rate: 116 MD: QRSD: 90 QT: 350 QTc: 486 [place]: P: MD: QRS: 23 T: 128 INTERPRETIVE STATEMENTS: Atrial fibrillation Abnormal ECG Compared to ECG 01/25/2024 10:33:03 Sinus rhythm no longer present ST (T wave) deviation no longer present Prolonged QT interval no longer present Electronically Signed On 06-11-24 11:43:37 FOOD SAFETY SCIENTIST by Josef Cast
[2024-06-12 02:37] VITALS: BP 203/131; TEMP 92; O2SAT 100
== END 2024-06-11 01:36 | disposition short-term general hospital (02) ==
LOC: ER 21:53
DX: I63.9 Cerebral infarction, unspecified (principal); R29.716 NIHSS score 16; I66.01 Occlusion and stenosis of right middle cerebral artery; J69.0 Pneumonitis due to inhalation of food and vomit; Z11.52 Encounter for screening for COVID-19; Z95.1 Presence of aortocoronary bypass graft
CPT/HCPCS: 93005; 87040 ×2; 85025; 80048; 36415; 83735; 85610; 82947; 80076; 85730; 84484; 87804 ×2; 70450; 70496; 70498; 71045; 31500; 99285; 87811; 94002; Q9967; J2704; J2250; J1953; J2405 ×2; J7040; J7030; J0696

== ENCOUNTER 2024-07-22 23:17 | Emergency (ER) | payer MEDICARE, OTHER ==
--- OUTSIDE RECORDS SUMMARY | 2024-07-22 23:27 | XMS REPORT | Continuity of Care Document ---
Author Name Unknown Address [address] [facility] [place] [address] [facility] [address] [facility] [place] [address] Care Team Providers Care [facility]ator [employer] Name Role Phone Pcp, Pcp Primary Care Physician UnavailDenia Marley Attending Clinician Unavailable ALESHIA SALINAS Attending Clinician UnavailVENKATESH Valentine Attending Clinician Unavailable Maricel Martinez MD Attending Clinician [phone] Vivienne Pisano MD Attending Clinician [phone] Franklin Orosco MD Attending Clinician Venkatesh Larson MD Attending Clinician [phone] Connie PRICE, Claire Attending Clinician UnavailDale Garrettanda Attending Clinician Anuja Mcadams Attending Clinician MARICEL MARTINEZ Admitting Clinician Maricel Emery MD Admitting Clinician [phone] Payers Payer Name Policy Type Policy Number Effective Date Expirati on Date Source MEDICARE PART A AND B [id number] 2009 00:00:00 2024 00:00:00 MEDICARE PART A AND B Medicare [id number] 2023 00:00:00 [facility] [employer] (MEDICARE REPLACEMENT HMO) [id number] 2021 00:00:00 Problems Condition Name Condition Details Condition Category Status Onset Date Resolution Date Last Treatment Date Treating Clinician Comments Source Hypertensi ve heart failure Hypertensi ve Heart Failure Problem Active 07-03 00:00: 00 [facility] 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 Arterioscl erosis of Coronary Artery Bypass Graft Problem Active 07-03 00:00: 00 [facility] Atrial fibrillati on Atrial Fibrillati on Problem Active 07-03 00:00: 00 [facility] Incontinen ce Incontinen ce Problem Active 07-03 00:00: 00 [facility] 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 Cognitive Deficit in Communicat ion Skills Problem Active 07-03 00:00: 00 [facility] Hemiplegia of left nondominan t side Hemiplegia of Left Nondominan t Side Problem Active 07-03 00:00: 00 [facility] Type 2 diabetes mellitus with peripheral angiopathy Type 2 Diabetes Mellitus with Peripheral Angiopathy Problem Active 07-03 00:00: 00 [facility] Mixed hyperlipid emia due to type 2 diabetes mellitus Mixed Hyperlipid emia Due to Type 2 Diabetes Mellitus Problem Active 07-03 00:00: 00 [facility] Pressure injury of left buttock stage II Pressure Injury of Left Buttock Stage II Problem Active 2025-0 2-07 00:00: 00 [facility] Heart failure with mid range ejection fraction Heart Failure with Mid Range Ejection Fraction Problem Active 2-07 00:00: 00 [facility] Infection caused by Helicobact er pylori Infection Caused by Helicobact er Pylori Problem Active 2-07 00:00: 00 [facility] Influenza caused by Influenza A virus Influenza Caused by Influenza a Virus Problem Active 2- 00:00: 00 [facility] Unstageabl e pressure injury of sacral region of back Unstageabl e Pressure Injury of Sacral Region of Back Problem Active 2- 00:00: 00 [facility] Hypothyroi dism Hypothyroi dism Problem Active 2 00:00: 00 [facility] 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 Hemiplegia as Late Effect of Cerebrovas cular Disease Problem Active 2-03 00:00: 00 [facility] 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 Dysphagia as a Late Effect of Cerebrovas cular Accident Problem Active 2-03 00:00: 00 [facility] Total self-care deficit Total Self-care Deficit Problem Active 2-03 00:00: 00 [facility] Bed-ridden Bed-ridden Problem Active 2-03 00:00: 00 [facility] Gastrostom y Gastrostom y Problem Active 2-03 00:00: 00 [facility] Type 2 diabetes mellitus Type 2 Diabetes Mellitus Problem Active 2-03 00:00: 00 [facility] Hyperlipid emia Hyperlipid emia Problem Active 2-03 00:00: 00 [facility] Secondary immune deficiency disorder Secondary Immune Deficiency Disorder Problem Active 2-03 00:00: 00 [facility] Hypercoagu lability state Hypercoagu lability State Problem Active 2-03 00:00: 00 [facility] Hypertensi ve heart disease Hypertensi ve Heart Disease Problem Active 2-03 00:00: 00 [facility] UTI (urinary tract infection) UTI (urinary tract infection) Disease Active 1-29 00:00: 00 [facility] Influenza A Influenza A Disease Active 06-24 00:00: 00 [facility] Diabetes mellitus Diabetes mellitus Disease Recurre nce 06-13 00:00: 00 [facility] Hypertensi on Hypertensi on Disease Active 06-12 00:00: 00 [facility] Hyperlipid emia Hyperlipid emia Disease Active 06-12 00:00: 00 [facility] Dysphagia Dysphagia Disease Active 06-12 00:00: 00 [facility] Dysarthria Dysarthria Disease Active 06-12 00:00: 00 [facility] Hemiplegia (CMS/HCC) Hemiplegia (CMS/HCC) Disease Active 06-12 00:00: 00 [facility] Atrial fibrillati on (CMS/HCC) Atrial fibrillati on (CMS/HCC) Disease Active 06-12 00:00: 00 [facility] 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 Disease Active 06-11 00:00: 00 [facility] [id number] Allergy to ant bite Problem [facility] [id number] Hypoglycem ia Problem [facility] [id number] Salivary stone Problem [facility] [id number] Sinusitis chronic, frontal Problem [facility] [id number] Hypertensi ve emergency Problem [facility] [id number] Essential (primary) hypertensi on Problem [facility] [id number] Other specified hearing loss of both ears Problem [facility] [id number] Mixed hyperlipid emia Problem [facility] [id number] Coronary artery disease involving [place] coronary artery of [place] heart without angina pectoris Problem [facility] Gastroesop hageal reflux disease GERD without esophagiti s Problem [facility] [id number] Hypertensi ve urgency Problem [facility] Anemia Anemia, unspecifie d type Problem [facility] [id number] Urge incontinen ce Problem [facility] [id number] Stage 3a chronic kidney disease Problem [facility] [id number] Type 2 diabetes mellitus with other diabetic kidney complicati on Problem [facility] Aspiration pneumonia ([facility]/HCC) Aspiration pneumonia ([facility]/HCC) Disease Resolve d -18 00:00: 00 2024-06-27 00:00:00 2024-06-27 12:46:51 [facility] Acute respirator y failure Acute respirator y failure Disease Resolve d 17 00:00: 00 2024-06-27 00:00:00 2024-06-27 12:46:44 [facility] Allergies, Adverse Reactions, Alerts Allergy Name Allergy Type Status Severity Reaction(s) Onset Date Inactive Date Treating Clinician Comments Source Medroxyp rogester one Acetate Propensi ty to adverse reaction s Active Unknown 06-11 00:00: 00 [facility] medroxyp rogester one medroxyp rogester one Active Unknown [facility] Medroxyp rogester one Allergy to substanc e Active [facility] Social History Social Habit Start Date Stop Date Quantity Comments Source ASSERTION Not [facility] Gender identity Dinesh Bean [facility] Sexual orientation M emoeusebio Vikas [facility] History of Tobacco Use [facility] Sex Assigned At [facility] Tobacco use and exposure 2024-06-12 00:00:00 2024-06-12 00:00:00 Smokeless tobacco non-user [facility] History of Social function 2024-06-11 00:00:00 2024-06-11 00:00:00 [facility] Smoking Status Start Date Stop Date Source Never smoked tobacco [facility] Former Smoker 2024-06-02 00:00:00 2024-06-02 00:00:00 [facility] Medications Ordered Medication Name Filled Medication Name Start Date Stop Date Current Medication? Ordering Clinician Indication Dosage Frequency Signature (SIG) Comments Components Source atorvastati n (Lipitor) 80 MG tablet atorvastati n (Lipitor) 80 MG tablet 06-28 00:00: 00 08-02 23:59 :00 No 1779 80mg QD 1 tablet by Per G Tube route 1 time each day. Do not start before June 28, 2024. [facility] amLODIPine (Norvasc) 10 MG tablet amLODIPine (Norvasc) 10 MG tablet 06-28 00:00: 00 06-28 23:59 :00 No 10mg QD 1 tablet by Per G Tube route 1 time each day. [facility] levothyroxi ne (Synthroid, Levoxyl) 100 MCG tablet levothyroxi ne (Synthroid, Levoxyl) 100 MCG tablet 06-28 00:00: 00 06-28 23:59 :00 No 100ug QD 1 tablet by Per G Tube route 1 time each day. [facility] lansoprazol e (Prevacid) 3 mg/mL suspension suspension lansoprazol e (Prevacid) 3 mg/mL suspension suspension 06-28 00:00: 00 12-25 23:59 :00 No 5466 30mg 10 mL by Per G Tube route in the morning. Take before meals. Do not start before June 28, 2024. [facility] amantadine (Symmetrel) 50 MG/5ML solution amantadine (Symmetrel) 50 MG/5ML solution 06-28 00:00: 00 07-05 23:59 :00 No 100mg QD 10 mL by Per G Tube route 1 time each day for 7 days. [facility] apixaban (Eliquis) tablet 5 mg apixaban (Eliquis) tablet 5 mg 06-27 21:00: 00 Yes 5mg Q.5D 5 mg, Per G Tube, Every 12 hours scheduled, First dose (after last modificati on) on 06/27/24 at 2100 [facility] metoprolol tartrate (Lopressor) tablet 50 mg metoprolol tartrate (Lopressor) tablet 50 mg 06-27 12:00: 00 Yes 50mg Q.25D 50 mg, Per G Tube, Every 6 hours scheduled, First dose (after last modificati on) on [facility] 06/27/24 at 1200 [facility] apixaban (Eliquis) tablet 2.5 mg apixaban (Eliquis) tablet 2.5 mg 06-27 09:00: 00 06-27 12:04 :09 No 2.5mg Q.5D 2.5 mg, Per G Tube, Every 12 hours scheduled, First dose (after last modificati on) on [facility] 06/27/24 at 0900 [facility] cefepime (Maxipime) 1 g in sterile water injection cefepime (Maxipime) 1 g in sterile water injection 06-27 07:00: 00 07-04 06:59 :00 No 1g Q12H 1 g, Intravenou s, at 120 mL/hr, Administer over 5 Minutes, Every 12 hours, First dose on [facility] 06/27/24 at 0700, For 7 days, Reconstitu te vial with 10 mL sterile water for injection. Prepare dose at bedside immediatel y prior to administra tion. Reconstitu tion: Shake immediatel y and vigorously . Withdraw entire contents and give IV push slowly over specified time., Suspected Indication (Select all that apply): Urinary Tract Infection [facility] apixaban (Eliquis) 5 MG tablet apixaban (Eliquis) 5 MG tablet 06-27 00:00: 00 Yes 5mg Q.5D 1 tablet by Per G Tube route in the morning and 1 tablet before bedtime. [facility] insulin lispro (Humalog, Admelog) 100 UNIT/ML injection insulin lispro (Humalog, Admelog) 100 UNIT/ML injection 06-27 00:00: 00 Yes 16U Q.25D Inject 16 Units under the skin in the morning and 16 Units at noon and 16 Units in the evening and 16 Units before bedtime. [facility] hydrALAZINE (Apresoline ) 100 MG tablet hydrALAZINE (Apresoline ) 100 MG tablet 06-27 00:00: 00 06-27 23:59 :00 No 100mg Q.[id number] 3D 1 tablet by Per G Tube route in the morning and 1 tablet at noon and 1 tablet in the evening. [facility] insulin glargine (Lantus) 100 UNIT/ML injection insulin glargine (Lantus) 100 UNIT/ML injection 2- 00:00: 00 06-27 23:59 :00 No 25U Inject 25 Units under the skin in the evening. [facility] insulin lispro (HumaLOG, Admelog) 100 unit/ml injection insulin lispro (HumaLOG, Admelog) 100 unit/ml injection 2- 00:00: 00 06-27 23:59 :00 No 2U Q.25D Inject 2-8 Units under the skin 4 times a day as needed for high blood sugar. See After Visit Summary for instructio ns on how to take your insulin. [facility] lisinopril 20 MG tablet lisinopril 20 MG tablet 06-27 00:00: 00 06-27 23:59 :00 No 20mg Q.5D 1 tablet by Per G Tube route in the morning and 1 tablet in the evening. [facility] metoprolol tartrate (Lopressor) 50 MG tablet metoprolol tartrate (Lopressor) 50 MG tablet 06-27 00:00: 00 06-27 23:59 :00 No 1323 50mg Q12H 1 tablet by Per G Tube route in the morning and 1 tablet in the evening. [facility] bismuth subsalicyla te (Pepto Bismol) 262 mg/15mL suspension bismuth subsalicyla te (Pepto Bismol) 262 mg/15mL suspension 2- 00:00: 00 07-09 23:59 :00 No 30mL Q.25D Take 30 mL by mouth in the morning and 30 mL at noon and 30 mL in the evening and 30 mL before bedtime. Do all this for 45 doses. [facility] metroNIDAZO LE (Flagyl) 50 mg/mL suspension metroNIDAZO LE (Flagyl) 50 mg/mL suspension 2- 00:00: 00 07-08 23:59 :00 No 250mg Q6H 5 mL by Per G Tube route in the morning and 5 mL at noon and 5 mL in the evening and 5 mL before bedtime. Do all this for 44 doses. [facility] acetaminoph en (Tylenol) 325 MG tablet acetaminoph en (Tylenol) 325 MG tablet 2 00:00: 00 07-07 23:59 :00 No 650mg Q6H Take 2 tablets by mouth every 6 hours if needed for mild pain (1-3) or fever for up to 10 days. [facility] levoFLOXaci n (Levaquin) 250 MG tablet levoFLOXaci n (Levaquin) 250 MG tablet 06-27 00:00: 00 07-07 23:59 :00 No 250mg QD Take 1 tablet by mouth 1 time each day for 10 days. [facility] tetracyclin e 500 MG capsule tetracyclin e 500 MG capsule 06-27 00:00: 00 07-01 23:59 :00 No 500mg 1 capsule by Per G Tube route in the morning and 1 capsule in the evening. Take before meals. Do all this for 8 doses. [facility] midazolam (PF) (Versed) injection midazolam (PF) (Versed) injection 06-26 16:16: 00 06-26 17:01 :43 No Intravenou s, As needed, Starting on Sat06/26/24 at 1616, Intraproce dure [facility] fentaNYL (Sublimaze) injection fentaNYL (Sublimaze) injection 06-26 16:16: 00 06-26 17:01 :43 No Intravenou s, As needed, Starting on Sat06/26/24 at 1616, Intraproce dure [facility] hydrALAZINE (Apresoline ) tablet 100 mg hydrALAZINE (Apresoline ) tablet 100 mg 06-25 13:00: 00 Yes 100mg Q.[id number] 3D 100 mg, Per G Tube, 3 times daily, First dose (after last modificati on) on Sat06/25/24 at 1300, Hold for SBP <110/ HR >110 [facility] caffeine half tablet 100 mg caffeine half tablet 100 mg 06-25 09:00: 00 06-25 13:04 :14 No 100mg QD 100 mg, Oral, Daily, First dose (after last modificati on) on Sat06/25/24 at 0900, Dose = mg of caffeine. (Order only half the usual caffeine citrate or caffeine-s odium benzoate dose) [facility] lansoprazol e (Prevacid) suspension 30 mg lansoprazol e (Prevacid) suspension 30 mg 06-25 07:30: 00 Yes 30mg 30 mg, Per G Tube, Daily before breakfast, First dose (after last modificati on) on Sat06/25/24 at 0730, SHAKE WELL [facility] metoprolol tartrate (Lopressor) tablet 100 mg metoprolol tartrate (Lopressor) tablet 100 mg 06-25 06:00: 00 06-27 11:54 :58 No 100mg Q.25D 100 mg, Per G Tube, Every 6 hours scheduled, First dose (after last modificati on) on Sat06/25/24 at 0600 [facility] metoprolol tartrate (Lopressor) tablet 75 mg metoprolol tartrate (Lopressor) tablet 75 mg 06-24 18:00: 00 06-25 04:52 :39 No 75mg Q.25D 75 mg, Per G Tube, Every 6 hours scheduled, First dose (after last modificati on) on Sat06/24/24 at 1800 [facility] bismuth subsalicyla te (Pepto Bismol) 262 mg/15mL suspension 30 mL bismuth subsalicyla te (Pepto Bismol) 262 mg/15mL suspension 30 mL 06-24 17:00: 00 07-08 16:59 :00 No 30mL Q.25D 30 mL, Oral, 4 times daily, First dose on Sat06/24/24 at 1800, For 14 days [facility] hydrALAZINE (Apresoline ) tablet 75 mg hydrALAZINE (Apresoline ) tablet 75 mg 06-24 17:00: 00 06-25 08:19 :21 No 75mg Q.[id number] 3D 75 mg, Per G Tube, 3 times daily, First dose (after last modificati on) on Sat06/24/24 at 1700, Hold for SBP <110/ HR >110 [facility] metroNIDAZO LE (Flagyl) suspension 250 mg metroNIDAZO LE (Flagyl) suspension 250 mg 06-24 16:30: 00 07-08 16:29 :00 No 250mg Q6H 250 mg, Per G Tube, Every 6 hours, First dose on Sat06/24/24 at 1630, For 14 days, SHAKE WELL, Suspected Indication (Select all that apply): Intra-abdo delia Infection [facility] tetracyclin e capsule 500 mg tetracyclin e capsule 500 mg 06-24 16:30: 00 07-01 16:29 :00 No 500mg 500 mg, Per G Tube, 2 times daily before meals, First dose on Sat06/24/24 at 1630, For 14 doses, Suspected Indication (Select all that apply): Intra-abdo delia Infection [facility] caffeine tablet 100 mg caffeine tablet 100 mg 06-24 09:15: 00 06-24 18:02 :04 No 100mg Q.[id number] 3D 100 mg, Per G Tube, 3 times daily, First dose (after last modificati on) on Sat06/24/24 at 0915, Dose = mg of caffeine. (Order only half the usual caffeine citrate or caffeine-s odium benzoate dose) [facility] atorvastati n (Lipitor) tablet 80 mg atorvastati n (Lipitor) tablet 80 mg 06-24 09:00: 00 Yes 80mg QD 80 mg, Per G Tube, Daily, First dose (after last modificati on) on Sat06/24/24 at 0900 [facility] amantadine (Symmetrel) solution 100 mg amantadine (Symmetrel) solution 100 mg 06-24 09:00: 00 Yes 100mg QD 100 mg, Per G Tube, Daily, First dose (after last modificati on) on Sat06/24/24 at 0900, Time Critical Medication . [facility] amLODIPine (Norvasc) tablet 10 mg amLODIPine (Norvasc) tablet 10 mg 06-24 09:00: 00 Yes 10mg QD 10 mg, Per G Tube, Daily, First dose (after last modificati on) on Sat06/24/24 at 0900 [facility] hydrALAZINE (Apresoline ) tablet 50 mg hydrALAZINE (Apresoline ) tablet 50 mg 06-24 09:00: 00 06-24 16:03 :49 No 50mg Q.[id number] 3D 50 mg, Per G Tube, 3 times daily, First dose (after last modificati on) on Sat06/24/24 at 0900, Hold for SBP <110/ HR >110 [facility] sodium chloride 0.9 % bolus 250 mL sodium chloride 0.9 % bolus 250 mL 06-24 07:30: 00 06-24 09:10 :00 No 250mL 250 mL, Intravenou s, at 250 mL/hr, Administer over 1 Hours, Once, On Sat06/24/24 at 0730, For 1 dose [facility] levothyroxi ne (Synthroid, Levoxyl) tablet 100 mcg levothyroxi ne (Synthroid, Levoxyl) tablet 100 mcg 06-24 06:30: 00 Yes 100ug QD 100 mcg, Per G Tube, Daily 630, First dose (after last modificati on) on Sat06/24/24 at 0630 [facility] ipratropium -albuterol (Duo-Neb) 0.5-2.5 mg/3 mL nebulizer solution 3 mL ipratropium -albuterol (Duo-Neb) 0.5-2.5 mg/3 mL nebulizer solution 3 mL 06-24 04:20: 00 Yes 3mL Q6H 3 mL, Nebulizati on, Every 6 hours PRN, wheezing, shortness of breath, Starting on Sat06/24/24 at 0420 [facility] cefTRIAXone (Rocephin) 1 g in sterile water injection cefTRIAXone (Rocephin) 1 g in sterile water injection 06-24 01:30: 00 06-27 06:53 :30 No 1g 1 g, Intravenou s, Administer over 5 Minutes, Every 24 hours, First dose on Sat06/24/24 at 0130, For 7 days, Reconstitu te vial with 10 mL sterile water for injection. Prepare dose at bedside immediatel y prior to administra tion. Reconstitu tion: Shake immediatel y and vigorously . Withdraw entire contents and give IV push slowly over specified time., Suspected Indication (Select all that apply): Urinary Tract Infection [facility] acetaminoph en (Tylenol) tablet 650 mg acetaminoph en (Tylenol) tablet 650 mg 06-23 21:56: 44 Yes 650mg Q6H 650 mg, Oral, Every 6 hours PRN, mild pain (1-3), fever, Starting on Sat06/23/24 at 2156, Max acetaminop hen = 4000mg/day (4gm/day) [facility] insulin glargine (Lantus) injection 25 Units insulin glargine (Lantus) injection 25 Units 06-23 18:00: 00 Yes 25U 25 Units, Subcutaneo us, Every evening, First dose (after last modificati on) on Sat06/23/24 at 1800 [facility] metoprolol tartrate (Lopressor) tablet 50 mg metoprolol tartrate (Lopressor) tablet 50 mg 06-23 18:00: 00 06-24 16:21 :25 No 50mg Q.25D 50 mg, Per G Tube, Every 6 hours scheduled, First dose (after last modificati on) on Sat06/23/24 at 1800 [facility] digoxin (Lanoxin) injection 500 mcg digoxin (Lanoxin) injection 500 mcg 06-23 17:45: 00 06-23 18:15 :00 No 500ug 500 mcg, Intravenou s, Administer over 5 Minutes, Once, On Sat06/23/24 at 1745, For 1 dose, Give as slow IVP over >/= 5 minutes [facility] insulin lispro (Humalog, Admelog) injection 16 Units insulin lispro (Humalog, Admelog) injection 16 Units 06-23 17:00: 00 Yes 16U Q.25D 16 Units, Subcutaneo us, 4 times daily, First dose (after last modificati on) on Sat06/23/24 at 1700, With times of bolus feed [facility] lisinopril tablet 20 mg lisinopril tablet 20 mg 06-23 17:00: 00 Yes 20mg Q.5D 20 mg, Per G Tube, 2 times daily, First dose (after last modificati on) on Sat06/23/24 at 1700, Hold for SBP<110 [facility] metoprolol tartrate (Lopressor) tablet 50 mg metoprolol tartrate (Lopressor) tablet 50 mg 06-23 11:30: 00 06-23 13:23 :04 No 50mg Q.5D 50 mg, Per G Tube, Every 12 hours scheduled, First dose (after last modificati on) on Sat06/23/24 at 1130 [facility] metoprolol tartrate (Lopressor) tablet 25 mg metoprolol tartrate (Lopressor) tablet 25 mg 06-23 09:00: 00 06-23 10:02 :36 No 25mg Q.5D 25 mg, Per G Tube, Every 12 hours scheduled, First dose on Sat06/23/24 at 0900, Hold for SBP <110 or HR < 60 [facility] hydrALAZINE (Apresoline ) tablet 25 mg hydrALAZINE (Apresoline ) tablet 25 mg 06-23 08:00: 00 06-24 07:18 :05 No 25mg Q.[id number] 3D 25 mg, Per G Tube, 3 times daily, First dose on Sat06/23/24 at 0800, Hold for SBP <110/ HR >110 [facility] sodium zirconium cyclosilica te (Lokelma) packet 10 g sodium zirconium cyclosilica te (Lokelma) packet 10 g 06-23 02:45: 00 06-23 02:50 :00 No 10g 10 g, Per G Tube, Once, On Sat06/23/24 at 0245, For 1 dose, Empty entire contents of packet(s) into 45 mL water. Stir well and administer immediatel y. If powder remains, rinse glass with water and administer . [facility] cloNIDine (Catapres) tablet 0.1 mg cloNIDine (Catapres) tablet 0.1 mg 06-23 01:45: 00 06-23 07:52 :56 No .1mg Q12H 0.1 mg, Oral, Every 12 hours, First dose on Sat06/23/24 at 0145, HOLD for SBP<110 [facility] insulin glargine (Lantus) injection 20 Units insulin glargine (Lantus) injection 20 Units 06-22 18:00: 00 06-23 16:03 :35 No 20U 20 Units, Subcutaneo us, Every evening, First dose on Sat06/22/24 at 2100 [facility] amantadine (Symmetrel) solution 100 mg amantadine (Symmetrel) solution 100 mg 06-22 16:45: 00 06-23 10:11 :54 No 100mg QD 100 mg, Oral, Daily, First dose on Sat06/22/24 at 1645, Time Critical Medication . [facility] sodium zirconium cyclosilica te (Lokelma) packet 10 g sodium zirconium cyclosilica te (Lokelma) packet 10 g 06-22 15:00: 00 06-22 16:24 :00 No 10g 10 g, Oral, Once, On Sat06/22/24 at 1500, For 1 dose, Empty entire contents of packet(s) into 45 mL water. Stir well and administer immediatel y. If powder remains, rinse glass with water and administer . [facility] insulin lispro (Humalog, Admelog) injection 12 Units insulin lispro (Humalog, Admelog) injection 12 Units 06-22 14:45: 00 06-23 16:03 :35 No 12U Q.25D 12 Units, Subcutaneo us, 4 times daily, First dose on Sat06/22/24 at 1445, With times of bolus feed [facility] insulin lispro (HumaLOG, Admelog) injection 2-8 Units [id number] 1-27 14:33: 14 Yes 2U Q.25D 2-8 Units, Subcutaneo us, 4 times daily PRN, high blood sugar, Starting on Sat06/22/24 at 1433, For BG < 70, follow hypoglycem ia protocol and notify ordering provider. If patient can eat or drink, give oral carbohydra te as ordered per hypoglycem ia protocol. If patient NPO, give dextrose 50 % IV as ordered per hypoglycem ia protocol. If NPO and no IV access, give glucagon IM as ordered per hypoglycem ia protocol. Check BG every 15 minutes and repeat treatment if continued BG < 80., Correction Insulin Dosing: (DO NOT CHANGE DEFAULT SELECTION/ VALUES): Starting, BG < 70 instructio ns: Follow Hypoglycem ia Orders, BG 70-149 instructio ns: No Dose Needed, BG 150-199: 2, BG 200-249: 4, BG 250-299: 6, BG >/= 300: 8, BG > 300 instructio ns: Contact Provider [facility] glucagon injection 1 mg glucagon injection 1 mg 06-22 14:32: 56 Yes 1mg 1 mg, Intramuscu lar, As needed, For BG < 70 mg/dL if no IV access and patient is either Unconsciou s, unable to swallow or npo, Starting on Sat06/22/24 at 1432, For BG < 70 mg/dL if no IV access and patient is either Unconsciou s, unable to swallow or npo and notify . [facility] dextrose 50 % solution 25 g dextrose 50 % solution 25 g 06-22 14:32: 56 Yes 25g 25 g, Intravenou s, As needed, other, if Blood Glucose </= 50 mg/dL, Starting on Sat06/22/24 at 1432, If BG </=50 mg/dL, give 50 mL of D50W IV push STAT and notify MD. [facility] dextrose 50 % solution 12.5 g dextrose 50 % solution 12.5 g 06-22 14:32: 56 Yes 12.5g 12.5 g, Intravenou s, As needed, low blood sugar, if Blood Glucose 51- 69 mg/dL, Starting on Sat06/22/24 at 1432, For BG 51-69 mg/dL and patient UNCONSCIOU S OR UNABLE TO SWALLOW OR NPO: Give 25 mL of D50W IV push and notify MD. [facility] Fibersource HN liquid 375 mL Fibersource HN liquid 375 mL 06-22 10:15: 00 Yes 375mL Q.25D 375 mL, Per PEG Tube, 4 times daily, First dose on Sat06/22/24 at 1015, Start at goal [facility] Enteral Free water Flush 60 mL Enteral Free water Flush 60 mL 06-22 10:15: 00 Yes 60mL Q4H 60 mL, Nasogastri c, Every 4 hours, First dose on Sat06/22/24 at 1015, Give ? the volume of the flush before the tube feeding bolus and give ? the volume of the flush after the tube feeding bolus [facility] calcium gluconate 1g in NaCl 50mL IVPB 1 g calcium gluconate 1g in NaCl 50mL IVPB 1 g 06-22 08:00: 00 06-22 10:04 :00 No 1g 1 g, Intravenou s, at 100 mL/hr, Administer over 30 Minutes, Once, On Sat06/22/24 at 0800, For 1 dose [facility] sodium chloride 0.9 % bolus 500 mL sodium chloride 0.9 % bolus 500 mL 06-21 23:00: 00 06-21 23:51 :00 No 500mL 500 mL, Intravenou s, at 500 mL/hr, Administer over 1 Hours, Once, On Sat06/21/24 at 2300, For 1 dose [facility] amLODIPine (Norvasc) tablet 10 mg amLODIPine (Norvasc) tablet 10 mg 06-21 09:45: 00 06-23 10:11 :54 No 10mg QD 10 mg, Oral, Daily, First dose on Sat06/21/24 at 0945 [facility] insulin NPH (Isophane) (HumuLIN N,NovoLIN N) injection 17 Units insulin NPH (Isophane) (HumuLIN N,NovoLIN N) injection 17 Units 06-20 09:08: 00 06-22 14:31 :12 No 17U Q8H 17 Units, Subcutaneo us, Every 8 hours, First dose (after last modificati on) on 06/20/24 at 0915 [facility] lisinopril tablet 20 mg lisinopril tablet 20 mg 06-20 09:00: 00 06-23 10:11 :54 No 20mg Q.5D 20 mg, Oral, 2 times daily, First dose (after last modificati on) on Sat06/20/24 at 0900, Hold for SBP<110 [facility] lisinopril tablet 20 mg lisinopril tablet 20 mg 06-19 13:15: 00 Yes 20mg 20 mg, Per G Tube, Once, On Sat06/19/24 at 1315, For 1 dose [facility] apixaban (Eliquis) tablet 5 mg apixaban (Eliquis) tablet 5 mg 06-19 12:30: 00 06-27 06:52 :03 No 5mg Q.5D 5 mg, Per G Tube, Every 12 hours scheduled, First dose on Sat06/19/24 at 1230 [facility] isosource 1.5 isosource 1.5 06-18 13:30: 00 06-22 10:06 :21 No Nasogastri c, at 50 mL/hr, Continuous , Starting on Sat06/18/24 at 1330, Administer enteral tube feeding as follows: Standard Progressio n: Initiate at 20 mL/hr and increase by 20 mL/hr evry 4 hours. Refer to the Rate field for Goal Rate [facility] lisinopril tablet 20 mg lisinopril tablet 20 mg 06-18 10:00: 00 06-19 13:13 :41 No 20mg QD 20 mg, Oral, Daily, First dose (after last modificati on) on Sat06/18/24 at 1000 [facility] Epic lisinopril tablet 20 mg lisinopril tablet 20 mg 06-17 09:00: 00 06-17 09:38 :53 No 20mg QD 20 mg, Oral, Daily, First dose (after last modificati on) on Sat06/17/24 at 0900 [facility] Epic sodium zirconium cyclosilica te (Lokelma) packet 10 g sodium zirconium cyclosilica te (Lokelma) packet 10 g 06-17 04:00: 00 06-17 04:16 :00 No 10g 10 g, Per G Tube, Once, On Sat06/17/24 at 0400, For 1 dose, Empty entire contents of packet(s) into 45 mL water. Stir well and administer immediatel y. If powder remains, rinse glass with water and administer . [facility] Epic lisinopril tablet 10 mg lisinopril tablet 10 mg 06-16 16:15: 00 Yes 10mg 10 mg, Oral, Once, On Sat06/16/24 at 1615, For 1 dose [facility] Epic insulin NPH (Isophane) (HumuLIN N,NovoLIN N) injection 15 Units insulin NPH (Isophane) (HumuLIN N,NovoLIN N) injection 15 Units 06-16 15:00: 00 06-20 07:47 :16 No 15U Q8H 15 Units, Subcutaneo us, Every 8 hours, First dose (after last modificati on) on Sat06/16/24 at 1500 [facility] Epic lisinopril tablet 10 mg lisinopril tablet 10 mg 06-16 06:45: 00 06-16 16:00 :36 No 10mg QD 10 mg, Oral, Daily, First dose on Sat06/16/24 at 0645 [facility] Epic insulin NPH (Isophane) (HumuLIN N,NovoLIN N) injection 13 Units insulin NPH (Isophane) (HumuLIN N,NovoLIN N) injection 13 Units 06-15 23:00: 00 06-16 13:19 :31 No 13U Q8H 13 Units, Subcutaneo us, Every 8 hours, First dose (after last modificati on) on Sat06/15/24 at 2300 [facility] insulin lispro (Humalog, Admelog) injection 3-12 Units insulin lispro (Humalog, Admelog) injection 3-12 Units 06-15 15:40: 14 06-22 14:33 :54 No 3U Q6H 3-12 Units, Subcutaneo us, Every 6 hours PRN, high blood sugar, Starting on Sat06/15/24 at 1540, 1. IF 2 consecutiv e BG are >160 mg/dL, notify provider. 2. IF 2 consecutiv e BG are < 110 mg/dL, notify provider. 3. IF 2 consecutiv e BG are >200 mg/dL or 1 BG is > or = to 300 mg/dL, notify provider then INITIATE Insulin drip 4. When initiating the Insulin Infusion Orders for ICU MPP, please discontinu e the ICU insulin Sub Q correction dose MPP and any orders for basal SQ insulin. Select the order communicat ion type as secondary. 5. When transferri ng out of ICU please inform MD to discontinu e critical care Sub-Q orders and initiate floor Sub-Q orders., Correction Insulin Dosing: (DO NOT CHANGE DEFAULT SELECTION/ VALUES): High, BG < 70 instructio ns: Follow Hypoglycem ia Orders, BG 70-149 instructio ns: No Dose Needed, BG 150-199: 3, BG 200-249: 6, BG 250-299: 9, BG >/= 300: 12, BG > 300 instructio ns: Contact Provider [facility] sodium chloride 0.9 % bolus 500 mL sodium chloride 0.9 % bolus 500 mL 06-15 10:00: 00 06-15 11:25 :00 No 500mL 500 mL, Intravenou s, at 500 mL/hr, Administer over 1 Hours, Once, On Sat06/15/24 at 1000, For 1 dose [facility] NIFEdipine XL (Procardia XL) 30 mg NIFEdipine XL (Procardia XL) 30 mg 06-15 08:15: 00 06-15 09:48 :57 No 30mg QD 30 mg, Oral, Daily, First dose on Sat06/15/24 at 0815, Do not crush, chew, or split. Rocky aHm sodium phosphates 30 mmol in sodium chloride 0.9 % 250 mL IVPB sodium phosphates 30 mmol in sodium chloride 0.9 % 250 mL IVPB 06-15 08:15: 00 06-15 14:29 :00 No 30mmol 30 mmol, Intravenou s, Administer over 4 Hours, Once, On Sat06/15/24 at 0815, For 1 dose [facility] carvedilol (Coreg) tablet 25 mg carvedilol (Coreg) tablet 25 mg 06-14 17:00: 00 06-23 07:53 :38 No 25mg 25 mg, Oral, 2 times daily with meals, First dose (after last modificati on) on Sat06/14/24 at 1700, Hold for SBP <110 or HR < 60 [facility] carvedilol (Coreg) tablet 12.5 mg carvedilol (Coreg) tablet 12.5 mg 06-14 12:30: 00 06-14 12:35 :00 No 12.5mg 12.5 mg, Oral, Once, On Sat06/14/24 at 1230, For 1 dose [facility] modafinil (Provigil) tablet 100 mg modafinil (Provigil) tablet 100 mg 06-14 12:00: 00 06-22 08:46 :19 No 100mg QD 100 mg, Nasogastri c, Daily, First dose on Sat06/14/24 at 1200 [facility] insulin NPH (Isophane) (HumuLIN N,NovoLIN N) injection 10 Units insulin NPH (Isophane) (HumuLIN N,NovoLIN N) injection 10 Units 06-14 12:00: 00 06-15 15:14 :19 No 10U Q8H 10 Units, Subcutaneo us, Every 8 hours, First dose (after last modificati on) on Sat06/14/24 at 1200 [facility] piperacilli n-tazobacta m (Zosyn) 3.375 g in sodium chloride 0.9 % 100 mL IVPB-MB+ piperacilli n-tazobacta m (Zosyn) 3.375 g in sodium chloride 0.9 % 100 mL IVPB-MB+ 06-13 10:00: 00 06-18 13:47 :00 No 3.375g Q8H 3.375 g, Intravenou s, Administer over 4 Hours, Every 8 hours, First dose on 06/13/24 at 1000, For 16 doses, Infuse over 4 hours; give first dose and ED doses over 30 minutes. Mini-Bag Plus bag. Break seal and mix before use, as follows: For liquid drug vials, skip to step 2. 1. Hold bag with vial down. Squeeze solution into vial until half-full. Shake to suspend drug in solution. 2. Hold bag with vial upside down. Squeeze bag to force air into vial, then release to drain suspended drug from vial into bag. 3. Repeat above until vial is empty of drug and solution is thoroughly mixed. Ensure drug is completely dissolved. Do not remove drug vial. 4. Remove port protector, attach admin set per its instructio ns, then hang container from IV pole and prime set per directions . Do not use in series connection s. 5. Ensure the vial is empty of drug and in solution, then administer medication as ordered. Use within specified BUD., Suspected Indication (Select all that apply): Bloodstrea m Infection [facility] carvedilol (Coreg) tablet 12.5 mg carvedilol (Coreg) tablet 12.5 mg 06-13 08:00: 00 06-14 12:25 :27 No 12.5mg 12.5 mg, Oral, 2 times daily with meals, First dose (after last modificati on) on Sat06/13/24 at 0800 [facility] insulin NPH (Isophane) (HumuLIN N,NovoLIN N) injection 8 Units insulin NPH (Isophane) (HumuLIN N,NovoLIN N) injection 8 Units 06-13 04:00: 00 06-14 07:26 :47 No 8U Q8H 8 Units, Subcutaneo us, Every 8 hours, First dose (after last modificati on) on 06/13/24 at 0400 [facility] insulin lispro (Humalog, Admelog) injection 3-12 Units insulin lispro (Humalog, Admelog) injection 3-12 Units 06-13 03:54: 35 06-15 15:40 :21 No 3U Q4H 3-12 Units, Subcutaneo us, Every 4 hours PRN, high blood sugar, Starting on 06/13/24 at 0354, 1. IF 2 consecutiv e BG are >160 mg/dL, notify provider. 2. IF 2 consecutiv e BG are < 110 mg/dL, notify provider. 3. IF 2 consecutiv e BG are >200 mg/dL or 1 BG is > or = to 300 mg/dL, notify provider then INITIATE Insulin drip 4. When initiating the Insulin Infusion Orders for ICU MPP, please discontinu e the ICU insulin Sub Q correction dose MPP and any orders for basal SQ insulin. Select the order communicat ion type as secondary. 5. When transferri ng out of ICU please inform MD to discontinu e critical care Sub-Q orders and initiate floor Sub-Q orders., Correction Insulin Dosing: (DO NOT CHANGE DEFAULT SELECTION/ VALUES): High, BG < 70 instructio ns: Follow Hypoglycem ia Orders, BG 70-149 instructio ns: No Dose Needed, BG 150-199: 3, BG 200-249: 6, BG 250-299: 9, BG >/= 300: 12, BG > 300 instructio ns: Contact Provider [facility] carvedilol (Coreg) tablet 6.25 mg carvedilol (Coreg) tablet 6.25 mg 06-13 02:30: 00 06-13 02:49 :00 No 6.25mg 6.25 mg, Oral, Once, On 06/13/24 at 0230, For 1 dose [facility] amLODIPine (Norvasc) tablet 10 mg amLODIPine (Norvasc) tablet 10 mg 06-13 02:15: 00 06-15 08:01 :58 No 10mg QD 10 mg, Oral, Daily, First dose on Sat06/13/24 at 0215 [facility] metoprolol tartrate (Lopressor) injection 5 mg metoprolol tartrate (Lopressor) injection 5 mg 06-13 02:09: 36 Yes 5mg 5 mg, Intravenou s, Every 5 min PRN, for sustain HR >130, Starting on Sat06/13/24 at 0209 [facility] carvedilol (Coreg) tablet 6.25 mg carvedilol (Coreg) tablet 6.25 mg 06-12 17:00: 00 06-13 02:19 :24 No 6.25mg 6.25 mg, Oral, 2 times daily with meals, First dose on Sat06/12/24 at 1700 [facility] iohexol (OMNIPaque) 350 MG/ML injection 60 mL iohexol (OMNIPaque) 350 MG/ML injection 60 mL 06-12 15:41: 18 06-12 15:41 :00 No 60mL 60 mL, Intravenou s, Once in imaging, Starting on Sat06/12/24 at 1541, For 1 dose [facility] heparin injection 5,000 Units heparin injection 5,000 Units 06-12 13:00: 00 06-19 12:04 :38 No 5000U Q8H 5,000 Units, Subcutaneo us, Every 8 hours, First dose on Sat06/12/24 at 1300 [facility] metoprolol tartrate (Lopressor) tablet 100 mg metoprolol tartrate (Lopressor) tablet 100 mg 06-12 09:15: 00 06-12 16:56 :09 No 100mg Q.5D 100 mg, Oral, Every 12 hours scheduled, First dose on Sat06/12/24 at 0915 [facility] metoprolol tartrate (Lopressor) injection 5 mg metoprolol tartrate (Lopressor) injection 5 mg 06-12 07:39: 11 06-12 23:07 :29 No 5mg 5 mg, Intravenou s, Every 5 min PRN, high blood pressure, Starting on Sat06/12/24 at 0739 [facility] Fatoumata levothyroxi ne (Synthroid, Levoxyl) tablet 100 mcg levothyroxi ne (Synthroid, Levoxyl) tablet 100 mcg 06-12 06:30: 00 06-23 10:11 :54 No 100ug QD 100 mcg, Oral, Daily 630, First dose on Sat06/12/24 at 0630 [facility] Fatoumata sodium phosphates 30 mmol in sodium chloride 0.9 % 100 mL IVPB sodium phosphates 30 mmol in sodium chloride 0.9 % 100 mL IVPB 06-12 05:30: 00 06-12 10:36 :00 No 30mmol 30 mmol, Intravenou s, Administer over 4 Hours, Once, On Sat06/12/24 at 0530, For 1 dose [facility] LORazepam (Ativan) injection 1 mg LORazepam (Ativan) injection 1 mg 06-11 22:37: 07 Yes 1mg Q4H 1 mg, Intravenou s, Every 4 hours PRN, agitation, Starting on Sat06/11/24 at 2237 [facility] levETIRAcet am (Keppra) injection 750 mg levETIRAcet am (Keppra) injection 750 mg 06-11 15:00: 00 06-12 12:48 :48 No 750mg Q12H 750 mg, Intravenou s, Every 12 hours, First dose on Sat06/11/24 at 1500, Give IVP over 3 minutes [facility] aspirin chewable tablet 81 mg aspirin chewable tablet 81 mg 06-11 13:15: 00 06-19 12:04 :38 No 81mg QD 81 mg, Oral, Daily, First dose on Sat06/11/24 at 1315 [facility] peptamen AF liquid peptamen AF liquid 06-11 13:00: 00 06-18 13:24 :11 No Nasogastri c, at 65 mL/hr, Continuous , Starting on Sat06/11/24 at 1300, Administer enteral tube feeding as follows: Standard Progressio n: Initiate at 20 mL/hr and increase by 20 mL/hr evry 4 hours. Refer to the Rate field for Goal Rate [facility] piperacilli n-tazobacta m (Zosyn) 3.375 g in sodium chloride 0.9 % 100 mL IVPB-MB+ piperacilli n-tazobacta m (Zosyn) 3.375 g in sodium chloride 0.9 % 100 mL IVPB-MB+ 06-11 12:00: 00 06-12 12:52 :28 No 3.375g Q8H 3.375 g, Intravenou s, Every 8 hours, 21 doses, First dose on Sat06/11/24 at 1200, Last dose on Sat06/18/24 at 0400 [facility] atorvastati n (Lipitor) tablet 80 mg atorvastati n (Lipitor) tablet 80 mg 06-11 09:00: 00 06-23 10:11 :54 No 80mg QD 80 mg, Oral, Daily, First dose on Sat06/11/24 at 0900 [facility] chlorhexidi ne (Peridex) 0.12 % solution 15 mL chlorhexidi ne (Peridex) 0.12 % solution 15 mL 06-11 09:00: 00 06-12 12:53 :42 No 15mL Q.25D 15 mL, Mouth/Thro at, 4 times daily, First dose on Sat06/11/24 at 0900, swish and expectorat e [facility] famotidine (PF) (Pepcid) injection 20 mg famotidine (PF) (Pepcid) injection 20 mg 06-11 09:00: 00 06-11 21:40 :32 No 20mg Q.5D 20 mg, Intravenou s, Administer over 2 Minutes, Every 12 hours scheduled, First dose on Sat06/11/24 at 0900 [facility] artificial tears ophthalmic ointment 1 Application artificial tears ophthalmic ointment 1 Application 06-11 06:00: 00 06-11 21:40 :32 No 1{appli cation} Q.25D 1 Applicatio n, Both Eyes, Every 6 hours scheduled, First dose on Sat06/11/24 at 0600, Discontinu e once extubated [facility] Epic piperacilli n-tazobacta m (Zosyn) 4.5 g in sodium chloride 0.9 % 100 mL IVPB-MB+ piperacilli n-tazobacta m (Zosyn) 4.5 g in sodium chloride 0.9 % 100 mL IVPB-MB+ 06-11 04:45: 00 06-11 07:39 :10 No 4.5g 4.5 g, Intravenou s, Administer over 4 Hours, Once, On Sat06/11/24 at 0445, For 1 dose, Infuse over 4 hours Mini-Bag Plus bag. Break seal and mix before use, as follows: For liquid drug vials, skip to step 2. 1. Hold bag with vial down. Squeeze solution into vial until half-full. Shake to suspend drug in solution. 2. Hold bag with vial upside down. Squeeze bag to force air into vial, then release to drain suspended drug from vial into bag. 3. Repeat above until vial is empty of drug and solution is thoroughly mixed. Ensure drug is completely dissolved. Do not remove drug vial. 4. Remove port protector, attach admin set per its instructio ns, then hang container from IV pole and prime set per directions . Do not use in series connection s. 5. Ensure the vial is empty of drug and in solution, then administer medication as ordered. Use within specified BUD., Suspected Indication (Select all that apply): Pneumonia [place]valdoraf cate Vikas Epic levETIRAcet am (Keppra) injection 500 mg levETIRAcet am (Keppra) injection 500 mg 06-11 04:00: 00 06-11 04:26 :00 No 500mg 500 mg, Intravenou s, Once, On Sat06/11/24 at 0400, For 1 dose [facility] Epic sodium chloride 0.9 % bolus 1,000 mL sodium chloride 0.9 % bolus 1,000 mL 506-11 04:00: 00 06-11 05:26 :00 No 1000mL 1,000 mL, Intravenou s, at 1,000 mL/hr, Administer over 1 Hours, Once, On Sat06/11/24 at 0400, For 1 dose Memoria cate Bean Epic iohexol (OMNIPaque) 350 MG/ML injection 40 mL iohexol (OMNIPaque) 350 MG/ML injection 40 mL 06-11 03:18: 58 06-11 03:19 :00 No 40mL 40 mL, Intravenou s, Once in imaging, Starting on Sat06/11/24 at 0318, For 1 dose Memoria cate AlejandreTaswell Epic LORazepam (Ativan) injection 2 mg LORazepam (Ativan) injection 2 mg 06-11 03:00: 00 06-11 03:05 :00 No 2mg 2 mg, Intravenou s, Once, On Sat06/11/24 at 0300, For 1 dose Memoria cate Bean Epic levETIRAcet am (Keppra) 2,500 mg in sodium chloride 0.9 % 250 mL IVPB levETIRAcet am (Keppra) 2,500 mg in sodium chloride 0.9 % 250 mL IVPB 06-11 03:00: 00 06-11 04:02 :00 No 2500mg 2,500 mg, Intravenou s, at 1,000 mL/hr, Administer over 15 Minutes, Once, On Sat06/11/24 at 0300, For 1 dose Memoria cate AlejandreVikas Epic labetalol injection 10 mg labetalol injection 10 mg 06-11 02:00: 26 Yes 10mg 10 mg, Intravenou s, Every 1 hour PRN, high blood pressure, follow vital signs parameters order, Starting on Sat06/11/24 at 0200, Avoid if bradycardi a with HR<60 1st agent Memoria cate Vikas Epic labetalol 5 mg/mL injection - Pyxis Override Pull labetalol 5 mg/mL injection - Pyxis Override Pull 06-11 01:59: 18 06-12 21:10 :00 No Starting on Sat06/11/24 at 0159, For 1 dose, Created by cabinet override Memoria cate Taswell Epic iohexol (OMNIPaque) 350 MG/ML injection 60 mL iohexol (OMNIPaque) 350 MG/ML injection 60 mL 06-11 01:53: 17 06-11 01:53 :00 No 60mL 60 mL, Intravenou s, Once in imaging, Starting on Sat06/11/24 at 0153, For 1 dose Memoria cate Bean Epic Docusate Sodium oral liquid 100 mg Docusate Sodium oral liquid 100 mg 06-11 01:45: 00 06-25 16:58 :28 No 100mg Q12H 100 mg, Per G Tube, Every 12 hours, First dose on Sat06/11/24 at 0145, OK to hold if loose stool Memoria cate Bean Epic senna (Senokot) oral solution 10 mL senna (Senokot) oral solution 10 mL 06-11 01:45: 00 06-23 10:11 :54 No 10mL Q12H 10 mL, Oral, Every 12 hours, First dose on Sat06/11/24 at 0145, OK to hold if loose stool Memoria cate Bean Epic sodium chloride 0.9 % infusion sodium chloride 0.9 % infusion 06-11 01:45: 00 06-12 12:51 :36 No 50mL/h 50 mL/hr, Intravenou s, Continuous , Starting on Sat06/11/24 at 0145 [facility] Epic insulin lispro (Humalog, Admelog) injection 3-12 Units insulin lispro (Humalog, Admelog) injection 3-12 Units 06-11 01:37: 42 06-13 03:54 :51 No 3U Q4H 3-12 Units, Subcutaneo us, Every 4 hours PRN, high blood sugar, Starting on Sat06/11/24 at 0137, 1. IF 2 consecutiv e BG are >160 mg/dL, notify provider. 2. IF 2 consecutiv e BG are < 110 mg/dL, notify provider. 3. IF 2 consecutiv e BG are >200 mg/dL or 1 BG is > or = to 300 mg/dL, notify provider then INITIATE Insulin drip 4. When initiating the Insulin Infusion Orders for ICU MPP, please discontinu e the ICU insulin Sub Q correction dose MPP and any orders for basal SQ insulin. Select the order communicat ion type as secondary. 5. When transferri ng out of ICU please inform MD to discontinu e critical care Sub-Q orders and initiate floor Sub-Q orders., Correction Insulin Dosing: (DO NOT CHANGE DEFAULT SELECTION/ VALUES): Medium, BG < 70 instructio ns: Follow Hypoglycem ia Orders, BG 70-149 instructio ns: No Dose Needed, BG 150-199: 3, BG 200-249: 6, BG 250-299: 9, BG >/= 300: 12, BG > 300 instructio ns: Contact Provider [facility] Epic magnesium sulfate IVPB 2 g magnesium sulfate IVPB 2 g 06-11 01:37: 26 06-13 13:24 :26 No 2g 2 g, Intravenou s, Administer over 4 Hours, As needed, Abnormal Lab Result, FOR ICU USE ONLY, Starting on Sat06/11/24 at 0137, For magnesium 1.6 to 1.8 mg/dL: Replace with Mg Sulfate 2 grams IVPB over 4 hours x 1 dose. For magnesium 1.9 to 2.3 mg/dL(in CV surgery patients only): Replace with Mg Sulfate 2 grams IVPB over 4 hours X 1 dose> For magnesium </= 1.5 mg/dL: Replace with Mg Sulfate 2 grams IVPB over 4 hours X 2 doses. Notify MD if magnesium </= 1.1 mg/dL Recheck Magnesium level 2 hours after Magnesium replacemen t complete. [facility] Epic sodium chloride (NS) 0.9 % flush 10 mL sodium chloride (NS) 0.9 % flush 10 mL 06-11 01:30: 00 Yes 10mL Q.5D 10 mL, Intravenou s, Every 12 hours scheduled, First dose on Sat06/11/24 at 0130, Administer at least once every 12 hours [facility] Epic sodium chloride (NS) 0.9 % flush 10 mL sodium chloride (NS) 0.9 % flush 10 mL 06-11 01:18: 37 Yes 10mL 10 mL, Intravenou s, As needed, line care, Line Flush, Starting on Sat06/11/24 at 0118 [facility] Glimepiride 2 MG Glimepiride 2 MG 2023-05 [...] No QD Levothyrox ine Sodium 125 MCG amantadine HCl 50 mg/5 mL oral solution Take 10 mL every day by oral route. amantadine HCl 50 mg/5 mL oral solution Take 10 mL every day by oral route. No 10mL Q1D amantadine HCl 50 mg/5 mL oral solution Take 10 mL every day by oral route. [facility] [place] amlodipine 10 mg tablet Take 1 tablet every day by oral route. amlodipine 10 mg tablet Take 1 tablet every day by oral route. No 1 Q1D amlodipine 10 mg tablet Take 1 tablet every day by oral route. [facility] atorvastati n 80 mg tablet Take 1 tablet every day by oral route. atorvastati n 80 mg tablet Take 1 tablet every day by oral route. No 1 Q1D atorvastat in 80 mg tablet Take 1 tablet every day by oral route. [facility] [place] insulin lispro (U-100) 100 unit/mL subcutaneou s pen per sliding scale. insulin lispro (U-100) 100 unit/mL subcutaneou s pen per sliding scale. No insulin lispro (U-100) 100 unit/mL subcutaneo us pen per sliding scale. [facility] lansoprazol [facility] 3 mg/mL oral suspension Take 10 mL every day by oral route in the morning. lansoprazol e 3 mg/mL oral suspension Take 10 mL every day by oral route in the morning. No 10mL Q1D lansoprazo le 3 mg/mL oral suspension Take 10 mL every day by oral route in the morning. [facility] Lantus Solostar U-100 Insulin 100 unit/mL (3 mL) subcutaneou s pen Inject 25 units every day by subcutaneou s route at bedtime. Lantus Solostar U-100 Insulin 100 unit/mL (3 mL) subcutaneou s pen Inject 25 units every day by subcutaneou s route at bedtime. No 25unit( s) Q1D Lantus Solostar U-100 Insulin 100 unit/mL (3 mL) subcutaneo us pen Inject 25 units every day by subcutaneo us route at bedtime. [facility] [place] levofloxaci n 250 mg/10 mL oral solution Take 10 mL every day by oral route. levofloxaci n 250 mg/10 mL oral solution Take 10 mL every day by oral route. No 10mL Q1D levofloxac in 250 mg/10 mL oral solution Take 10 mL every day by oral route. [facility] levothyroxi ne 100 mcg tablet Take 1 tablet every day by oral route for 90 days. levothyroxi ne 100 mcg tablet Take 1 tablet every day by oral route for 90 days. No 1 Q1D levothyrox ine 100 mcg tablet Take 1 tablet every day by oral route for 90 days. [facility] [place] lisinopril 20 mg tablet Take 1 tablet every day by oral route. lisinopril 20 mg tablet Take 1 tablet every day by oral route. No 1 Q1D lisinopril 20 mg tablet Take 1 tablet every day by oral route. [facility] [place] metoprolol tartrate 50 mg tablet Take 1 tablet twice a day by oral route. metoprolol tartrate 50 mg tablet Take 1 tablet twice a day by oral route. No 1 BID metoprolol tartrate 50 mg tablet Take 1 tablet twice a day by oral route. [facility] metronidazo le 500 mg/5 mL oral suspension Take 5 mL 4 times a day by oral route. metronidazo le 500 mg/5 mL oral suspension Take 5 mL 4 times a day by oral route. No 5mL QID metronidaz ole 500 mg/5 mL oral suspension Take 5 mL 4 times a day by oral route. [facility] tetracyclin e 500 mg capsule Take 1 capsule twice a day by oral route. tetracyclin e 500 mg capsule Take 1 capsule twice a day by oral route. No 1capsul e(s) BID tetracycli ne 500 mg capsule Take 1 capsule twice a day by oral route. [facility] Eliquis 5 mg tablet Take 1 tablet twice a day by oral route. Eliquis 5 mg tablet Take 1 tablet twice a day by oral route. No Eliquis 5 mg tablet Take 1 tablet twice a day by oral route. [facility] Vital Signs Vital Name Observation Time Observation Value Comments S ource Body Weight 2024-07-09 00:00:00 2064 [oz_av] [facility] Height 2024-07-09 00:00:00 61 [in_i] [facility] BMI (Body Mass Index) 2024-07-09 00:00:00 24.4 kg/[facility]2 [facility] Diastolic 2024-07-09 00:00:00 55 mm[Hg] [facility] BP Systolic 2024-07-09 00:00:00 135 mm[Hg] [facility] BP Diastolic 2024-06-29 00:00:00 86 mm[Hg] [facility] BMI (Body Mass Index) 2024-06-29 00:00:00 25.3 kg/m2 [facility] Systolic 2024-06-29 00:00:00 132 mm[Hg] [facility] Height 2024-06-29 00:00:00 61 [in_i] [facility] Body Weight 2024-06-29 00:00:00 2144 [oz_av] [facility] Systolic blood pressure 2024-06-27 14:00:00 140 mm[Hg] [facility] Diastolic blood pressure 2024-06-27 14:00:00 59 mm[Hg] [facility] Heart rate 2024-06-27 14:00:00 71 /min [facility] Respiratory rate 2024-06-27 14:00:00 19 /min [facility] Oxygen saturation in Arterial blood by Pulse oximetry 2024-06-27 14:00:00 95 /min [facility] Body temperature 2024-06-27 07:45:00 37.28 [facility] Body height 2024-06-11 09:29:00 155 [facility] 2024-06-11 09:29:00 61 kg [facility] BMI 2024-06-11 09:29:00 25.39 kg/m2 Dineshshivani kaplan [facility] Systolic blood pressure 2024-06-27 14:00:00 140 mm[Hg] [facility] Diastolic blood pressure 2024-06-27 14:00:00 59 mm[Hg] [facility] Heart rate 2024-06-27 14:00:00 71 /min [facility] Respiratory rate 2024-06-27 14:00:00 19 /min [facility] Oxygen saturation in Arterial blood by Pulse oximetry 2024-06-27 14:00:00 95 /min [facility] Body temperature 2024-06-27 07:45:00 37.28 [facility] Body height 2024-06-11 09:29:00 155 cm [facility] 2024-06-11 09:29:00 61 kg Dineshshivani kaplan [facility] BMI 2024-06-11 09:29:00 25.39 kg/m2 [facility] 2024-04-07 15:00:00 61 [in_i] Commo n [facility] weight 2024-04-07 15:00:00 134 [lb_av] Comm on [facility] temperature 2024-04-07 15:00:00 97.5 [degF] Com mon [facility] bmi 2024-04-07 15:00:00 25.32 kg/m2 Comm on [facility] oximetry 2024-04-07 15:00:00 96 % Commo n [facility] respiratory rate 2024-04-07 15:00:00 16 /min Common [facility] blood pressure systolic 2024-04-07 15:00:00 150 mm[Hg] [facility] blood pressure diastolic 2024-04-07 15:00:00 76 mm[Hg] [facility] height 2024-03-19 09:20:00 61 [in_i] Commo n [facility] weight 2024-03-19 09:20:00 133 [lb_av] Comm on [facility] temperature 2024-03-19 09:20:00 97.2 [degF] Com mon [facility] bmi 2024-03-19 09:20:00 25.13 kg/m2 Comm on [facility] oximetry 2024-03-19 09:20:00 97 % Commo n [facility] respiratory rate 2024-03-19 09:20:00 16 /min Common [facility] blood pressure systolic 2024-03-19 09:20:00 212 mm[Hg] [facility] blood pressure diastolic 2024-03-19 09:20:00 88 mm[Hg] Common [facility] height 2023-11-05 13:40:00 61 [in_i] Commo n [facility] weight 2023-11-05 13:40:00 134.4 [lb_av] Co mmon [facility] temperature 2023-11-05 13:40:00 96.4 [degF] Com mon [facility] bmi 2023-11-05 13:40:00 25.39 kg/m2 Comm on [facility] oximetry 2023-11-05 13:40:00 98 % Commo n [facility] respiratory rate 2023-11-05 13:40:00 16 /min Common [facility] blood pressure systolic 2023-11-05 13:40:00 164 mm[Hg] [facility] blood pressure diastolic 2023-11-05 13:40:00 68 mm[Hg] [facility] height 2023-07-23 14:40:00 61 [in_i] Commo n [facility] weight 2023-07-23 14:40:00 133 [lb_av] Comm on [facility] temperature 2023-07-23 14:40:00 97.3 [degF] Com mon [facility] bmi 2023-07-23 14:40:00 25.13 kg/m2 Comm on [facility] oximetry 2023-07-23 14:40:00 98 % Commo n [facility] respiratory rate 2023-07-23 14:40:00 16 /min [facility] blood pressure systolic 2023-07-23 14:40:00 146 mm[Hg] [facility] blood pressure diastolic 2023-07-23 14:40:00 74 mm[Hg] [facility] height 2023-07-23 15:00:00 61 [in_i] Commo n [facility] weight 2023-07-23 15:00:00 133 [lb_av] Comm on [facility] temperature 2023-07-23 15:00:00 97.3 [degF] Com [facility] bmi 2023-07-23 15:00:00 25.13 kg/m2 Comm on [facility] oximetry 2023-07-23 15:00:00 98 % Commo n [facility] respiratory rate 2023-07-23 15:00:00 16 /min Common [facility] blood pressure systolic 2023-07-23 15:00:00 146 mm[Hg] [facility] blood pressure diastolic 2023-07-23 15:00:00 74 mm[Hg] [facility] height 2023-01-07 15:40:00 61 [in_i] Commo n [facility] weight 2023-01-07 15:40:00 133.8 [lb_av] Co mmon [facility] temperature 2023-01-07 15:40:00 96.8 [degF] Com [facility] bmi 2023-01-07 15:40:00 25.28 kg/m2 Comm on [facility] oximetry 2023-01-07 15:40:00 97 % Commo n [facility] respiratory rate 2023-01-07 15:40:00 16 /min Common [facility] blood pressure systolic 2023-01-07 15:40:00 170 mm[Hg] [facility] blood pressure diastolic 2023-01-07 15:40:00 68 mm[Hg] Common [facility] height 2023-01-07 14:40:00 61 [in_i] Commo n [facility] weight 2023-01-07 14:40:00 133.8 [lb_av] Co mmon [facility] temperature 2023-01-07 14:40:00 96.8 [degF] Com [facility] bmi 2023-01-07 14:40:00 25.28 kg/m2 Comm on [facility] oximetry 2023-01-07 14:40:00 97 % Commo n [facility] respiratory rate 2023-01-07 14:40:00 16 /min Common [facility] blood pressure systolic 2023-01-07 14:40:00 170 mm[Hg] [facility] blood pressure diastolic 2023-01-07 14:40:00 68 mm[Hg] Common [facility] height 2022-11-07 15:40:00 61 [in_i] Commo n [facility] weight 2022-11-07 15:40:00 134.6 [lb_av] Co mmon [facility] temperature 2022-11-07 15:40:00 97.3 [degF] Com [facility] bmi 2022-11-07 15:40:00 25.43 kg/m2 Comm on [facility] oximetry 2022-11-07 15:40:00 98 % Commo n [facility] respiratory rate 2022-11-07 15:40:00 16 /min Common [facility] blood pressure systolic 2022-11-07 15:40:00 162 mm[Hg] [facility] blood pressure diastolic 2022-11-07 15:40:00 73 mm[Hg] [facility] height 2022-10-03 15:00:00 61 [in_i] Commo n [facility] weight 2022-10-03 15:00:00 132.4 [lb_av] Co mmon [facility] temperature 2022-10-03 15:00:00 97.6 [degF] Com [facility] bmi 2022-10-03 15:00:00 25.01 kg/m2 Comm on [facility] oximetry 2022-10-03 15:00:00 96 % Commo n [facility] respiratory rate 2022-10-03 15:00:00 16 /min [facility] blood pressure systolic 2022-10-03 15:00:00 144 mm[Hg] [facility] blood pressure diastolic 2022-10-03 15:00:00 85 mm[Hg] [facility] height 2022-09-26 15:00:00 61 [in_i] Commo n [facility] weight 2022-09-26 15:00:00 132.4 [lb_av] Co mmon [facility] temperature 2022-09-26 15:00:00 97.6 [degF] Com [facility] bmi 2022-09-26 15:00:00 25.01 kg/m2 Comm on [facility] oximetry 2022-09-26 15:00:00 97 % Commo n [facility] respiratory rate 2022-09-26 15:00:00 16 /min Common [facility] blood pressure systolic 2022-09-26 15:00:00 168 mm[Hg] [facility] blood pressure diastolic 2022-09-26 15:00:00 80 mm[Hg] [facility] height 2022-09-19 14:00:00 61 [in_i] Commo n [facility] weight 2022-09-19 14:00:00 134 [lb_av] Comm on [facility] temperature 2022-09-19 14:00:00 97.8 [degF] Com [facility] bmi 2022-09-19 14:00:00 25.32 kg/m2 Comm on [facility] oximetry 2022-09-19 14:00:00 98 % Commo n [facility] respiratory rate 2022-09-19 14:00:00 16 /min Common [facility] blood pressure systolic 2022-09-19 14:00:00 184 mm[Hg] [facility] blood pressure diastolic 2022-09-19 14:00:00 92 mm[Hg] [facility] height 2022-09-14 14:20:00 61 [in_i] Commo n [facility] weight 2022-09-14 14:20:00 135.4 [lb_av] Co mmon [facility] temperature 2022-09-14 14:20:00 98.0 [degF] Com [facility] bmi 2022-09-14 14:20:00 25.58 kg/m2 Comm on [facility] oximetry 2022-09-14 14:20:00 94 % Commo n [facility] respiratory rate 2022-09-14 14:20:00 16 /min Common [facility] blood pressure systolic 2022-09-14 14:20:00 224 mm[Hg] [facility] blood pressure diastolic 2022-09-14 14:20:00 86 mm[Hg] [facility] height 2022-08-27 08:40:00 61 [in_i] Commo n [facility] weight 2022-08-27 08:40:00 125 [lb_av] Comm on [facility] bmi 2022-08-27 08:40:00 23.62 kg/m2 Comm on [facility] height 2021-12-28 10:40:00 61 [in_i] Commo n [facility] weight 2021-12-28 10:40:00 129.4 [lb_av] Co [facility] temperature 2021-12-28 10:40:00 98.4 [degF] Com [facility] bmi 2021-12-28 10:40:00 24.45 kg/m2 Comm on [facility] oximetry 2021-12-28 10:40:00 98 % Commo n [facility] respiratory rate 2021-12-28 10:40:00 16 /min [facility] blood pressure systolic 2021-12-28 10:40:00 128 mm[Hg] [facility] blood pressure diastolic 2021-12-28 10:40:00 76 mm[Hg] [facility] height 2021-12-15 14:20:00 61 [in_i] Commo n [facility] weight 2021-12-15 14:20:00 131.8 [lb_av] Co [facility] temperature 2021-12-15 14:20:00 97.8 [degF] Com [facility] bmi 2021-12-15 14:20:00 24.9 kg/m2 Commo n [facility] oximetry 2021-12-15 14:20:00 97 % Commo n [facility] respiratory rate 2021-12-15 14:20:00 20 /min Common [facility] blood pressure systolic 2021-12-15 14:20:00 152 mm[Hg] [facility] blood pressure diastolic 2021-12-15 14:20:00 80 mm[Hg] [facility] height 2021-12-15 14:20:00 61 [in_i] Commo n [facility] weight 2021-12-15 14:20:00 131.8 [lb_av] Co mmon [facility] temperature 2021-12-15 14:20:00 97.8 [degF] Com [facility] bmi 2021-12-15 14:20:00 24.9 kg/m2 Commo n [facility] oximetry 2021-12-15 14:20:00 97 % Commo n [facility] respiratory rate 2021-12-15 14:20:00 20 /min Common [facility] blood pressure systolic 2021-12-15 14:20:00 152 mm[Hg] [facility] blood pressure diastolic 2021-12-15 14:20:00 80 mm[Hg] [facility] height 2021-08-22 10:40:00 61 [in_i] Commo n [facility] weight 2021-08-22 10:40:00 132 [lb_av] Comm on [facility] temperature 2021-08-22 10:40:00 97.5 [degF] Com [facility] bmi 2021-08-22 10:40:00 24.94 kg/m2 Comm on [facility] oximetry 2021-08-22 10:40:00 99 % Commo n [facility] respiratory rate 2021-08-22 10:40:00 16 /min [facility] blood pressure systolic 2021-08-22 10:40:00 128 mm[Hg] [facility] blood pressure diastolic 2021-08-22 10:40:00 70 mm[Hg] [facility] Procedures Procedure Date / Time Performed Performing Clinician Source POCT Glucose 2024-07-22 00:00:00 [facility] POCT Glucose 2024-07-11 00:00:00 [facility] Basic Metabolic Panel 2024-07-08 00:00:00 [facility] Epic Calcium Level Ionized Serum 2024-07-08 00:00:00 [facility] Epic Magnesium Level 2024-07-08 00:00:00 [facility] Phosphorus Level 2024-07-08 00:00:00 Dinesh [facility] POC GLUCOSE UNSOLICITED RESULTS 2024-06-27 12:41:00 Marsha Sisrusty [facility] Epic POC GLUCOSE UNSOLICITED RESULTS 2024-06-27 09:16:00 Marsha Sisrusty [facility] Epic COMPLETE BLOOD COUNT W/DIFF AND PLATELET 2024-06-27 01:16:00 Michelle Velez [facility] COMPLETE BLOOD COUNT 2024-06-27 01:16:00 Michelle Velez [facility] AUTOMATED DIFFERENTIAL 2024-06-27 01:16:00 Michelle Finn [facility] Epic BASIC METABOLIC PANEL 2024-06-27 01:16:00 Shae Chang [facility] Epic POC GLUCOSE UNSOLICITED RESULTS 2024-06-27 00:52:00 Mars[facility] POC GLUCOSE UNSOLICITED RESULTS 2024-06-27 00:39:00 Marsha Sishigail [facility] Epic Cardiac event monitor 2024-06-27 00:00:00 [facility] Epic POC GLUCOSE UNSOLICITED RESULTS 2024-06-26 20:36:00 Marsha, Sishir [facility] POC GLUCOSE UNSOLICITED RESULTS 2024-06-26 18:39:00 Venkatesh Larson [facility] TRANSESOPHAGEAL ECHO (SAYRA) W/ DOPPLER, COLOR AND CARDIOVERSION 2024-06-26 16:50:00 Katarzyna Earl [facility] POC GLUCOSE UNSOLICITED RESULTS 2024-06-26 13:22:00 Manntara Isabelrusty [facility] POC GLUCOSE UNSOLICITED RESULTS 2024-06-26 12:35:00 Mannava, Sishir [facility] POC GLUCOSE UNSOLICITED RESULTS 2024-06-26 12:21:00 Mannava, Sishir [facility] POC GLUCOSE UNSOLICITED RESULTS 2024-06-26 12:13:00 Manntara, Sishir [facility] POC GLUCOSE UNSOLICITED RESULTS 2024-06-26 12:09:00 Marsha, Sishir [facility] Epic PHOSPHORUS LEVEL 2024-06-26 01:27:00 [facility]ind[facility] COMPLETE BLOOD COUNT W/DIFF AND PLATELET 2024-06-26 01:27:00 [facility] COMPLETE BLOOD COUNT 2024-06-26 01:27:00 Michelle Velez [facility] AUTOMATED DIFFERENTIAL 2024-06-26 01:27:00 Michelle Finn [facility] BASIC METABOLIC PANEL 2024-06-26 01:27:00 [facility] CALCIUM LEVEL IONIZED SERUM 2024-06-26 01:27:00 Shae [facility] MAGNESIUM LEVEL 2024-06-26 01:27:00 Madison [facility] Transesophageal echo (SAYRA) with possible cardioversion 2024-06-26 00:00:00 [facility] POC GLUCOSE UNSOLICITED RESULTS 2024-06-25 19:47:00 Marsha Isabelrusty [facility] POC GLUCOSE UNSOLICITED RESULTS 2024-06-25 16:57:00 Marsha Isabelhigail [facility] POC GLUCOSE UNSOLICITED RESULTS 2024-06-25 11:59:00 Marsha Sishir [facility] Epic XR CHEST 1 VIEW 2024-06-25 10:50:21 Concepción Mukherjee se [facility] Epic WOUND OSTOMY EVAL AND TREAT 2024-06-25 10:18:31 Mannava, Sishir [facility] POC GLUCOSE UNSOLICITED RESULTS 2024-06-25 10:02:00 Mannava, Sishir [facility] Epic POC GLUCOSE UNSOLICITED RESULTS 2024-06-25 07:29:00 Mannava, Sishir [facility] Epic POC GLUCOSE UNSOLICITED RESULTS 2024-06-25 05:35:00 Mannava, Sishir [facility] COMPLETE BLOOD COUNT W/DIFF AND PLATELET 2024-06-25 04:11:00 Oscar Alves, Glauco [facility] Epic COMPLETE BLOOD COUNT 2024-06-25 04:11:00 Oscarthu Alves [place] [facility] AUTOMATED DIFFERENTIAL 2024-06-25 04:11:00 Alon david Alves [place] [facility] BASIC METABOLIC PANEL 2024-06-25 04:11:00 [facility] POC GLUCOSE UNSOLICITED RESULTS 2024-06-25 00:01:00 Mannava, Sishir [facility] POC GLUCOSE UNSOLICITED RESULTS 2024-06-24 20:34:00 Mannava, Sishir [facility] POC GLUCOSE UNSOLICITED RESULTS 2024-06-24 17:06:00 Mannava, Sishir [facility] POC GLUCOSE UNSOLICITED RESULTS 2024-06-24 14:30:00 Mannava, Sishir [facility] Epic XR CHEST 1 VIEW 2024-06-24 11:13:17 Concepción Mukherjee se [facility] Epic LACTIC ACID LEVEL 2024-06-24 09:37:00 Naya Mitchell [facility] Epic POC GLUCOSE UNSOLICITED RESULTS 2024-06-24 09:01:00 Mannava, Sishir [facility] POC GLUCOSE UNSOLICITED RESULTS 2024-06-24 00:56:00 Mannava, Sishir [facility] Epic PHOSPHORUS LEVEL 2024-06-23 23:29:00 [facility] COMPLETE BLOOD COUNT W/DIFF AND PLATELET 2024-06-23 23:29:00 Oscar Alves, Glauco [facility] COMPLETE BLOOD COUNT 2024-06-23 23:29:00 Oscarthu Alves [facility] AUTOMATED DIFFERENTIAL 2024-06-23 23:29:00 Alon Alves Glauco [facility] BASIC METABOLIC PANEL 2024-06-23 23:29:00 Shae Chang [facility] MAGNESIUM LEVEL 2024-06-23 23:29:00 Madison Chang imindtyler [facility] BLOOD CULTURE 2024-06-23 23:27:00 Sally Mitchell [facility] PROCALCITONIN LEVEL 2024-06-23 23:27:00 Kim Mitchell [facility] LACTIC ACID LEVEL 2024-06-23 23:27:00 Naya Mitchell [facility] URINE CULTURE 2024-06-23 23:26:00 [facility] FLU RSV PHYLLIS 2024-06-23 23:26:00 Kim Mitchell [facility] UA WITH CULTURE IF INDICATED 2024-06-23 23:26:00 Marsha Sisrusty [facility] Epic XR CHEST 1 VIEW 2024-06-23 22:42:00 Sally Mitchell [facility] Epic WOUND OSTOMY EVAL AND TREAT 2024-06-23 21:40:11 Eric Lyon [facility] POC GLUCOSE UNSOLICITED RESULTS 2024-06-23 21:03:00 Manntara, Sisanshur [facility] POC GLUCOSE UNSOLICITED RESULTS 2024-06-23 17:57:00 Manntara, Sishir [facility] POC GLUCOSE UNSOLICITED RESULTS 2024-06-23 17:42:00 Manntara, Sishir [facility] POC GLUCOSE UNSOLICITED RESULTS 2024-06-23 14:16:00 Manntara, Sishir [facility] Epic POC GLUCOSE UNSOLICITED RESULTS 2024-06-23 12:16:00 Marsha Sishir [facility] Epic PHOSPHORUS LEVEL 2024-06-23 12:10:00 Concepción Mukherjee [facility] Epic POTASSIUM LEVEL 2024-06-23 12:10:00 Sally Mitchell [facility] MAGNESIUM LEVEL 2024-06-23 12:10:00 Concepción Mukherjee se [facility] Epic POC GLUCOSE UNSOLICITED RESULTS 2024-06-23 10:28:00 Marsha Venkatesh [facility] POC GLUCOSE UNSOLICITED RESULTS 2024-06-23 07:52:00 Mannava, Sisalr [facility] POC GLUCOSE UNSOLICITED RESULTS 2024-06-23 05:36:00 Franklin Orosco [facility] Epic POC GLUCOSE UNSOLICITED RESULTS 2024-06-23 04:15:00 Franklin Orosco [facility] COMPLETE BLOOD COUNT W/DIFF AND PLATELET 2024-06-23 00:57:00 Michelle Velez [facility] COMPLETE BLOOD COUNT 2024-06-23 00:57:00 Oscar Alves Glaucshivani [facility] AUTOMATED DIFFERENTIAL 2024-06-23 00:57:00 Michelle Finn [facility] BASIC METABOLIC PANEL 2024-06-23 00:57:00 [facility] POCT Blood Glucose 2024-06-23 00:00:00 [facility] ECG 12 lead 2024-06-23 00:00:00 [facility] POC GLUCOSE UNSOLICITED RESULTS 2024-06-22 23:32:00 Franklin Orosco [facility] Epic POC GLUCOSE UNSOLICITED RESULTS 2024-06-22 20:41:00 Franklin Orosco [facility] Epic POC GLUCOSE UNSOLICITED RESULTS 2024-06-22 16:23:00 Franklin Orosco [facility] Epic POC GLUCOSE UNSOLICITED RESULTS 2024-06-22 13:24:00 AzFranklin youssef [facility] Epic POC GLUCOSE UNSOLICITED RESULTS 2024-06-22 09:01:00 AzFranklin youssef [facility] POC GLUCOSE UNSOLICITED RESULTS 2024-06-22 05:45:00 Maricel Martinez [facility] PHOSPHORUS LEVEL 2024-06-22 02:09:00 Bindu [facility] COMPLETE BLOOD COUNT W/DIFF AND PLATELET 2024-06-22 02:09:00 Oscar Alves Michelle [facility] COMPLETE BLOOD COUNT 2024-06-22 02:09:00 Oscar Alves Michelle [facility] AUTOMATED DIFFERENTIAL 2024-06-22 02:09:00 Alon Alves Michelle [facility] BASIC METABOLIC PANEL 2024-06-22 02:09:00 Yuan Changda [facility] CALCIUM LEVEL IONIZED SERUM 2024-06-22 02:09:00 Chang, Luzviminda [facility] Epic MAGNESIUM LEVEL 2024-06-22 02:09:00 Madison Chang iminda [facility] POC GLUCOSE UNSOLICITED RESULTS 2024-06-22 00:14:00 Maricel Martinez [facility] ECG 12 lead 2024-06-22 00:00:00 [facility] Respiratory Culture w/Gram Stain 2024-06-22 00:00:00 [facility] ECG 12-LEAD 2024-06-21 22:45:00 Cate Trivedi [facility] POC GLUCOSE UNSOLICITED RESULTS 2024-06-21 16:18:00 Franklin Orosco [facility] POC GLUCOSE UNSOLICITED RESULTS 2024-06-21 12:30:00 Franklin Orosco [facility] POC GLUCOSE UNSOLICITED RESULTS 2024-06-21 09:11:00 Franklin Orosco [facility] PROCALCITONIN LEVEL 2024-06-21 08:09:00 Oscar Alves Davidshivani [facility] XR CHEST 1 VIEW 2024-06-21 07:51:00 Oscarthu dos santos Michelle [facility] Epic POC GLUCOSE UNSOLICITED RESULTS 2024-06-21 06:23:00 Franklin Orosco [facility] COMPLETE BLOOD COUNT W/DIFF AND PLATELET 2024-06-21 03:42:00 Oscarthu Alves Glauco [facility] COMPLETE BLOOD COUNT 2024-06-21 03:42:00 Oscarthu Alves Michelle [facility] Epic AUTOMATED DIFFERENTIAL 2024-06-21 03:42:00 Alon david Alves Glauco [facility] BASIC METABOLIC PANEL 2024-06-21 03:42:00 Chang , Luzviminda [facility] Epic POC GLUCOSE UNSOLICITED RESULTS 2024-06-21 00:14:00 Az[facility]Franklin [facility] Epic POC GLUCOSE UNSOLICITED RESULTS 2024-06-20 17:06:00 Azher, Franklin Jose A [facility] Epic POC GLUCOSE UNSOLICITED RESULTS 2024-06-20 07:28:00 Azher, Franklin Jose A [facility] Epic POC GLUCOSE UNSOLICITED RESULTS 2024-06-20 06:11:00 Azher, Franklin Naranjo [facility] COMPLETE BLOOD COUNT W/DIFF AND PLATELET 2024-06-20 03:48:00 Oscar Long Davido [facility] COMPLETE BLOOD COUNT 2024-06-20 03:48:00 Oscar Long Davido [facility] Epic AUTOMATED DIFFERENTIAL 2024-06-20 03:48:00 Alondustin Alves Glauco [facility] BASIC METABOLIC PANEL 2024-06-20 03:48:00 Chang , [facility]inda [facility] Epic POC GLUCOSE UNSOLICITED RESULTS 2024-06-20 01:08:00 Azher, Franklin Naranjo [facility] Epic POC GLUCOSE UNSOLICITED RESULTS 2024-06-19 15:24:00 Azher, Franklin Jose A [facility] Epic POC GLUCOSE UNSOLICITED RESULTS 2024-06-19 08:12:00 Azher Franklin Jose A [facility] PHOSPHORUS LEVEL 2024-06-19 02:57:00 ChangMonsez viminda [facility] COMPLETE BLOOD COUNT W/DIFF AND PLATELET 2024-06-19 02:57:00 Oscar Alves, Davido [facility] COMPLETE BLOOD COUNT 2024-06-19 02:57:00 Oscar Long [facility] Epic AUTOMATED DIFFERENTIAL 2024-06-19 02:57:00 Alon david Alves Glauco [facility] BASIC METABOLIC PANEL 2024-06-19 02:57:00 Bernardo Luzviminda [facility] CALCIUM LEVEL IONIZED SERUM 2024-06-19 02:57:00 Chang Luzviminda [facility] MAGNESIUM LEVEL 2024-06-19 02:57:00 Bernardo Binduinocencia santidequan [facility] POC GLUCOSE UNSOLICITED RESULTS 2024-06-18 21:25:00 Franklin Orosco [facility] POC GLUCOSE UNSOLICITED RESULTS 2024-06-18 18:40:00 Franklin Orosco [facility] EGD 2024-06-18 17:30:00 Catalina Barron [facility] TISSUE EXAM 2024-06-18 17:13:00 Mckenzie Ely [facility] POC GLUCOSE UNSOLICITED RESULTS 2024-06-18 15:23:00 Franklin Orosco [facility] POC GLUCOSE UNSOLICITED RESULTS 2024-06-18 12:54:00 Franklin Orosco [facility] POC GLUCOSE UNSOLICITED RESULTS 2024-06-18 08:12:00 Franklin Orosco [facility] COMPLETE BLOOD COUNT W/DIFF AND PLATELET 2024-06-18 02:21:00 [facility] COMPLETE BLOOD COUNT 2024-06-18 02:21:00 [facility] AUTOMATED DIFFERENTIAL 2024-06-18 02:21:00 Alon Alves [facility] BASIC METABOLIC PANEL 2024-06-18 02:21:00 Shae Chang [facility] POC GLUCOSE UNSOLICITED RESULTS 2024-06-17 23:11:00 Franklin Orosco [facility] POC GLUCOSE UNSOLICITED RESULTS 2024-06-17 20:08:00 Franklin Orosco [facility] POC GLUCOSE UNSOLICITED RESULTS 2024-06-17 17:57:00 Franklin Orosco [facility] XR ABDOMEN 1 VIEW 2024-06-17 16:26:44 Felisa Barakat [facility] POC GLUCOSE UNSOLICITED RESULTS 2024-06-17 14:33:00 Franklin Orosco [facility] POTASSIUM LEVEL 2024-06-17 10:06:00 Sally Mitchell [facility] Epic POC GLUCOSE UNSOLICITED RESULTS 2024-06-17 08:21:00 Maricel Martinez [facility] Epic POC GLUCOSE UNSOLICITED RESULTS 2024-06-17 05:52:00 Maricel Martinez [facility] Epic PHOSPHORUS LEVEL 2024-06-17 01:05:00 Bindu Chang [facility]a [facility] COMPLETE BLOOD COUNT W/DIFF AND PLATELET 2024-06-17 01:05:00 Oscar Long Glauco [facility] Epic COMPLETE BLOOD COUNT 2024-06-17 01:05:00 Oscar Long Glauco [facility] Epic AUTOMATED DIFFERENTIAL 2024-06-17 01:05:00 Alon david Alves, Glauco [facility] Epic BASIC METABOLIC PANEL 2024-06-17 01:05:00 Yuan [facility]da [facility] Epic CALCIUM LEVEL IONIZED SERUM 2024-06-17 01:05:00 Shae [facility] Epic MAGNESIUM LEVEL 2024-06-17 01:05:00 Madison Chang marlenea [facility] Epic POC GLUCOSE UNSOLICITED RESULTS 2024-06-16 22:51:00 Maricel Martinez [facility] Epic POC GLUCOSE UNSOLICITED RESULTS 2024-06-16 17:38:00 Franklin Orosco [facility] Epic POC GLUCOSE UNSOLICITED RESULTS 2024-06-16 16:33:00 Franklin Orosco [facility] Epic POC GLUCOSE UNSOLICITED RESULTS 2024-06-16 11:47:00 Franklin Orosco [facility] Epic POC GLUCOSE UNSOLICITED RESULTS 2024-06-16 08:04:00 Franklin Orosco [facility] Epic COMPLETE BLOOD COUNT W/DIFF AND PLATELET 2024-06-16 03:21:00 Oscar Alves, Glauco [facility] Epic COMPLETE BLOOD COUNT 2024-06-16 03:21:00 Oscar Alves, Glauco [facility] Epic AUTOMATED DIFFERENTIAL 2024-06-16 03:21:00 Alon io Alves, Glauco [facility] Epic BASIC METABOLIC PANEL 2024-06-16 03:21:00 Chang , Luzviminda [facility] POC GLUCOSE UNSOLICITED RESULTS 2024-06-15 23:31:00 Franklin Orosco [facility] POC GLUCOSE UNSOLICITED RESULTS 2024-06-15 18:15:00 Vivienne Pisano [facility] POC GLUCOSE UNSOLICITED RESULTS 2024-06-15 12:00:00 Vivienne Pisano [facility] POC GLUCOSE UNSOLICITED RESULTS 2024-06-15 08:24:00 Vivienne Pisano [facility] POC GLUCOSE UNSOLICITED RESULTS 2024-06-15 05:58:00 Pratimanancy Vivienne [facility] COMPLETE BLOOD COUNT W/DIFF AND PLATELET 2024-06-15 01:39:00 Michelle Velez [facility] COMPLETE BLOOD COUNT 2024-06-15 01:39:00 [facility] AUTOMATED DIFFERENTIAL 2024-06-15 01:39:00 [facility]on [facility] BASIC METABOLIC PANEL 2024-06-15 01:39:00 Shae Chang [facility] CALCIUM LEVEL IONIZED SERUM 2024-06-15 01:39:00 Shae Chang [facility] MAGNESIUM LEVEL 2024-06-15 01:39:00 Madison Chang [facility] PHOSPHORUS LEVEL 2024-06-15 01:39:00 Bindu Chang [facility] POC GLUCOSE UNSOLICITED RESULTS 2024-06-15 00:05:00 Robmitchnancy Jonathanlatricedanuta [facility] POC GLUCOSE UNSOLICITED RESULTS 2024-06-14 22:36:00 Pratimanancy Gerardokarichakalatricedanuta [facility] POC GLUCOSE UNSOLICITED RESULTS 2024-06-14 18:24:00 Pratimanancy Vivienne [facility] POC GLUCOSE UNSOLICITED RESULTS 2024-06-14 12:04:00 Robmitchnancy Jonathanlatricedanuta [facility] POC GLUCOSE UNSOLICITED RESULTS 2024-06-14 05:13:00 Maricel Martinez [facility] COMPLETE BLOOD COUNT W/DIFF AND PLATELET 2024-06-14 00:27:00 Oscar Alves Michelle [facility] COMPLETE BLOOD COUNT 2024-06-14 00:27:00 Oscar Alves Michelle [facility] AUTOMATED DIFFERENTIAL 2024-06-14 00:27:00 Alon Alves Michelle [facility] BASIC METABOLIC PANEL 2024-06-14 00:27:00 Monse Changzchantalda [facility] POC GLUCOSE UNSOLICITED RESULTS 2024-06-14 00:22:00 Brianna Maricel [facility] POC GLUCOSE UNSOLICITED RESULTS 2024-06-13 21:35:00 Brianna [facility] POC GLUCOSE UNSOLICITED RESULTS 2024-06-13 18:18:00 Brianna Maricel [facility] POC GLUCOSE UNSOLICITED RESULTS 2024-06-13 13:58:00 Brianna Maricel [facility] POC GLUCOSE UNSOLICITED RESULTS 2024-06-13 11:57:00 Brianna Maricel [facility] XR CHEST 1 VIEW 2024-06-13 09:07:00 Oscar dos santos Michelle [facility] MRSA BY PCR 2024-06-13 08:43:00 Tia Jenkins [facility] BLOOD CULTURE 2024-06-13 08:39:00 Tia Jenkins [facility] PROCALCITONIN LEVEL 2024-06-13 08:39:00 Jah Jenkins [facility] POC GLUCOSE UNSOLICITED RESULTS 2024-06-13 07:51:00 RobeVivienne cruz [facility] COMPLETE BLOOD COUNT W/DIFF AND PLATELET 2024-06-13 01:47:00 Loyd Gil [facility] COMPLETE BLOOD COUNT 2024-06-13 01:47:00 Loyd Gil [facility] AUTOMATED DIFFERENTIAL 2024-06-13 01:47:00 Loyd Claudio [facility] BASIC METABOLIC PANEL 2024-06-13 01:47:00 Monse Changzgricelda [facility] Respiratory Culture w/Gram Stain 2024-06-13 00:00:00 [facility] ECG 12-LEAD 2024-06-12 23:19:12 Godwin Payne [facility] POC GLUCOSE UNSOLICITED RESULTS 2024-06-12 19:23:00 Norris Gerardokarichakalatricedanuta [facility] POC GLUCOSE UNSOLICITED RESULTS 2024-06-12 17:09:00 Vivienne Pisano [facility] CT ANGIOGRAM BRAIN NECK STROKE 2024-06-12 15:41:01 Mariposa Landin [facility] CT BRAIN WO IV CONTRAST 2024-06-12 15:40:31 Mariposa Landin [facility] POC GLUCOSE UNSOLICITED RESULTS 2024-06-12 12:09:00 Vivienne Pisano [facility] ECG 12-LEAD 2024-06-12 07:55:57 Tia Jenkins [facility] POC GLUCOSE UNSOLICITED RESULTS 2024-06-12 07:50:00 Vivienne Pisano [facility] COMPLETE BLOOD COUNT W/DIFF AND PLATELET 2024-06-12 02:23:00 Loyd Gil [facility] COMPLETE BLOOD COUNT 2024-06-12 02:23:00 Loyd Gil [facility] AUTOMATED DIFFERENTIAL 2024-06-12 02:23:00 Loyd Claudio [facility] POC GLUCOSE UNSOLICITED RESULTS 2024-06-12 00:25:00 Vivienne Pisano [facility] BASIC METABOLIC PANEL 2024-06-12 00:14:00 Shae Chang [facility] CALCIUM LEVEL IONIZED SERUM 2024-06-12 00:14:00 Shae Chang [facility] MAGNESIUM LEVEL 2024-06-12 00:14:00 Madison Chang [facility] PHOSPHORUS LEVEL 2024-06-12 00:14:00 Bindu Chang [facility] MRI BRAIN WO IV CONTRAST 2024-06-11 23:11:00 Isaiah Bryant [facility] POC GLUCOSE UNSOLICITED RESULTS 2024-06-11 17:25:00 Vivienne Pisano [facility] Epic EXTUBATION 2024-06-11 15:51:22 Rosibel Trevino ial [facility] ECG 12-LEAD 2024-06-11 11:14:45 Farhad Bryant [facility] TROPONIN I HIGH SENSITIVITY CARESET (1ST HR) 2024-06-11 10:47:00 Tia Jenkins [facility] TRANSTHORACIC ECHO (TTE) COMPLETE 2024-06-11 09:31:00 Kim Mitchell [facility] TROPONIN I HIGH SENSITIVITY CARESET 2024-06-11 08:42:00 [facility] HIGH SENSITIVITY CARESET (BASELINE) 2024-06-11 08:42[facility]NSOLICITED RESULTS 2024-06-11 07:37:00 Vivienne Pisano [facility] EEG CONTINUOUS MONITORING 2024-06-11 06:49:00 Amos Bryant [facility] COMPLETE BLOOD COUNT W/DIFF AND PLATELET 2024-06-11 04:43:00 Shae Chang [facility] LIPID PANEL W/DIRECT LDL IF INDICATED 2024-06-11 04:43:00 Shae Chang [facility] THYROID STIMULATING HORMONE W/ REFLEX FREE T4 2024-06-11 04:43:00 Shae Chang [facility] TROPONIN I HIGH SENSITIVITY (SINGLE ORDER) 2024-06-11 04:43:00 Shae Chang [facility] PT AND PTT 2024-06-11 04:43:00 Madison Chang [facility] COMPLETE BLOOD COUNT 2024-06-11 04:43:00 Shae Chang [facility] AUTOMATED DIFFERENTIAL 2024-06-11 04:43:00 [place], Luzviminda [facility] HEPATIC FUNCTION PANEL 2024-06-11 04:43:00 [place], Binduviminda [facility] ETHANOL LEVEL 2024-06-11 04:43:00 Farhad Bryant ial [facility] HEMOGLOBIN A1C 2024-06-11 04:43:00 Bindu Changv iminda [facility] LACTIC ACID LEVEL 2024-06-11 04:43:00 Monse Changda [facility] MRSA BY PCR 2024-06-11 04:37:00 Farhad Bryant al [facility] DRUG SCREEN URINE (8 DRUGS) 2024-06-11 04:36:00 Shae Chang [facility] UA WITH CULTURE IF INDICATED 2024-06-11 04:36:00 Farhad Bryant [facility] CT BRAIN PERFUSION 2024-06-11 03:20:00 Farhad Bryant [facility] XR ABDOMEN 1 VIEW 2024-06-11 02:31:00 Naya Mitchell [facility] XR CHEST 1 VIEW 2024-06-11 02:28:00 [facility] 2024-06-11 01:50:00 Kim Mitchell Diana [facility] CT ANGIOGRAM BRAIN NECK STROKE 2024-06-11 01:50:00 Kim Mitchell [facility] TYPE AND SCREEN 2024-06-11 01:32:00 Sally Mitchell [facility] COMPLETE BLOOD COUNT (NO DIFF) 2024-06-11 01:32:00 Kim Mitchell [facility] PROTIME-INR 2024-06-11 01:32:00 Sally Mitchell [facility] BASIC METABOLIC PANEL 2024-06-11 01:32:00 Kim Mitchell Diana [facility] LIPID PANEL W/CALCULATED LDL 2024-06-11 01:32:00 Kim Mitchell [facility] HEMOGLOBIN A1C 2024-06-11 01:32:00 Sally Mitchell [facility] POC ARTERIAL BLOOD GAS AND BASIC PANEL UNSOLICITED RESULTS 2024-06-11 01:29:00 Maricel Martinez [facility] ECG 12 lead 2024-06-11 00:00:00 [facility] Cardiac Catheterization 2015-06-27 00:00:00 [facility] Medical Coronary Artery Bypass Graft 2015-06-27 00:00:00 [facility] Medical Prosthetic Arthroplasty of Knee Joint 2003-03-27 [facility] 1967-05-27 00:00:00 [facility] M edical Tonsillectomy 1957-05-27 00:00:00 [facility] Medical Complete Blood Count w/Diff and Platelet [facility] Chest physiotherapy [facility] EEG continuous monitoring Me [facility] Blood culture, peripheral #2 [facility] Gastrostomy [facility] Medical Encounters Start Date/Time End Date/Time Encounter Type Admission Type Attending [facility] Care Facility Care Department Encounter ID Source 2024-07-22 08:51:00 Outpatient IlyaDenia [facility] [id number] [facility] 2024-06-01 14:23:00 Outpatient Ilya Denia [facility] [id number] [facility] 2024-05-26 13:23:00 Outpatient Ilya Denia [facility] [id number] [facility] 2024-04-06 14:05:00 Outpatient Denia Caraballo [facility] [id number] [facility] 2024-03-30 13:20:00 Outpatient Denia Caraballo [facility] [id number] [facility] 2024-03-23 09:39:01 Outpatient Denia Caraballo [facility] [id number] [facility] 2024-01-30 13:54:00 Outpatient CaraballoDenia baez [facility] STLML[facility] [id number] [facility] 2023-12-23 09:38:01 Outpatient CaraballoDenia [facility]LML[facility] [id number] [facility] 2023-11-25 15:59:00 Outpatient CaraballoDenia STLMLC ST[facility] [id number] [facility] 2023-11-05 13:36:01 Outpatient CaraballoDenia STLMLC STL[facility] [id number] [facility] 2023-11-01 10:07:00 Outpatient CaraballoDenia STLMLC STLMLC [id number] [facility] 2023-07-19 09:03:00 Outpatient CaraballoDenia STLMLC STLMLC [id number] [facility] 2023-03-28 09:41:02 Outpatient CaraballoDenia baez STLMLC STLMLC [id number] [facility] 2023-01-07 07:32:00 Outpatient CaraballoDenia baez STLMLC STLMLC [id number] [facility] 2022-11-22 16:05:01 Outpatient CaraballoDenia STLMLC STLMLC [id number] [facility] 2022-11-05 10:04:01 Outpatient CaraballoSalmai STLMLC STLMLC [id number] [facility] 2022-09-17 09:17:04 Outpatient CaraballoSalma baezi STLMLC STLMLC [id number] [facility] 2022-08-27 08:20:01 Outpatient CaraballoSalmai STLMLC STLMLC [id number] [facility] 2022-02-21 10:45:02 Outpatient CaraballoDenia STLMLC STLC [id number] [facility] 2021-12-27 12:56:00 Outpatient CaraballoSalmai STLMLC STLMLC [id number] [facility] 2021-12-13 09:28:01 Outpatient CaraballoSalmai STLMLC STLMLC [id number] [facility] 2021-11-01 14:39:03 Outpatient Caraballo Denia STLMLC STLMLC [id number] [facility] 2021-08-23 09:46:33 Outpatient CaraballoSalmai STLMLC STLC [id number] [facility] 2021-08-22 09:14:03 Outpatient CaraballoDenia STLMLC STLC [id number] [facility] 2024-07-24 09:00:00 2024-07-24 09:00:00 Outpatient ALESHIA SALINAS [facility] [id number] [facility] 2024-07-09 00:00:00 2024-07-09 00:00:00 Ori Gutierrez MD: [address] [place] [id number] , Ph. [facility] [id number] [facility] 2024-07-06 00:00:00 2024-07-06 00:00:00 ASUNCION Campbell: [address] [place] [id number] , Ph. [facility] [id number] [facility] 2024-07-03 00:00:00 2024-07-03 00:00:00 ASUNCION Campbell: [address] [place] [id number] , Ph. [facility] [id number] [facility] 2024-06-29 00:00:00 2024-06-29 00:00:00 Sharmin Bravo PA: [address] [place] [address] , Ph. [facility] [id number] [facility] 2024-06-11 01:10:00 2024-06-27 15:19:00 Inpatient Elective VENKATESH LARSON [facility] General Medicine [id number] [facility] 2024-06-11 01:10:00 2024-06-27 15:19:00 Hospital Encounter Maricel Martinez, Franklin Lugo Sishir [facility] [id number] [facility] 2024-06-24 00:00:00 2024-06-24 16:21:18 [facility] [id number] [facility] 2024-06-11 00:00:00 2024-06-11 01:09:00 Outpatient Elective [facility] [id number] [facility] 2024-06-11 02:27:14 2024-06-10 23:59:00 Outpatient [facility] [id number] [facility] 2024-06-11 02:25:56 2024-06-10 23:59:00 Outpatient [facility] [id number] [facility] 2024-06-11 02:22:15 2024-06-10 23:59:00 Outpatient [facility] [id number] [facility] 2024-06-11 02:10:35 2024-06-10 23:59:00 Outpatient [facility] [id number] [facility] 2024-05-12 00:00:00 2024-05-12 00:00:00 (TEL) STLMLC STLMLC [id number] [facility] 2024-04-07 00:00:00 2024-04-07 00:00:00 OFFICE VISIT ESTAB PT LEVEL 5 STLMLC STLMLC [id number] [facility] 2024-04-06 00:00:00 2024-04-06 00:00:00 (TEL) STLMLC STLMLC [id number] [facility] 2024-03-20 00:00:00 2024-03-20 00:00:00 (TEL) STLMLC STLMLC [id number] [facility] 2024-03-19 00:00:00 2024-03-19 00:00:00 OFFICE VISIT ESTAB PT LEVEL 5 STLMLC STLMLC [id number] [facility] 2024-02-03 00:00:00 2024-02-03 00:00:00 (TEL) STLMLC STLMLC [id number] [facility] 2023-11-25 00:00:00 2023-11-25 00:00:00 (TEL) STLMLC STLMLC [id number] [facility] 2023-11-05 00:00:00 2023-11-05 00:00:00 OFFICE VISIT ESTAB PT LEVEL 4 STLMLC STLMLC [id number] [facility] 2023-10-28 00:00:00 2023-10-28 00:00:00 (TEL) STLMLC STLMLC [id number] [facility] 2023-09-19 00:00:00 2023-09-19 00:00:00 (TEL) STLMLC STLMLC [id number] [facility] 2023-08-07 00:00:00 2023-08-07 00:00:00 (TEL) STLMLC STLMLC [id number] [facility] 2023-07-29 00:00:00 2023-07-29 00:00:00 (TEL) STLMLC STLMLC [id number] [facility] 2023-07-23 00:00:00 2023-07-23 00:00:00 OFFICE VISIT ESTAB PT LEVEL 4 STLMLC STLMLC [id number] [facility] 2023-07-23 00:00:00 2023-07-23 00:00:00 SUB ANNUAL MCR WELLNESS VISIT STLMLC STLMLC [id number] [facility] 2023-07-03 00:00:00 2023-07-03 00:00:00 (TEL) STLMLC STLMLC [id number] [facility] 2023-07-02 00:00:00 2023-07-02 00:00:00 (TEL) STLMLC STLMLC [id number] [facility] 2023-03-20 00:00:00 2023-03-20 00:00:00 (TEL) STLMLC STLMLC [id number] [facility] 2023-03-19 00:00:00 2023-03-19 00:00:00 (TEL) STLMLC STLMLC [id number] [facility] 2023-01-07 00:00:00 2023-01-07 00:00:00 OFFICE VISIT ESTAB PT LEVEL 4 STLMLC STLMLC [id number] [facility] 2023-01-07 00:00:00 2023-01-07 00:00:00 SUB ANNUAL MCR WELLNESS VISIT STLMLC STLMLC [id number] [facility] 2022-11-07 00:00:00 2022-11-07 00:00:00 OFFICE VISIT ESTAB PT LEVEL 4 STLMLC STLMLC [id number] [facility] 2022-10-03 00:00:00 2022-10-03 00:00:00 OFFICE VISIT ESTAB PT LEVEL 4 STLMLC STLMLC [id number] [facility] 2022-09-29 00:00:00 2022-09-29 00:00:00 Outpatient DMG DMG [id number] [facility] [place] [facility] 2022-09-26 00:00:00 2022-09-26 00:00:00 OFFICE VISIT ESTAB PT LEVEL 2 STLMLC STLMLC [id number] [facility] 2022-09-19 00:00:00 2022-09-19 00:00:00 OFFICE VISIT ESTAB PT LEVEL 5 STLMLC STLMLC [id number] [facility] 2022-09-14 00:00:00 2022-09-14 00:00:00 OFFICE VISIT ESTAB PT LEVEL 4 STLMLC STLMLC [id number] [facility] 2022-08-27 00:00:00 2022-08-27 00:00:00 OFFICE VISIT ESTAB PT LEVEL 3 STLMLC STLMLC [id number] [facility] 2022-08-27 00:00:00 2022-08-27 00:00:00 (TEL) STLMLC STLMLC [id number] [facility] 2022-08-27 00:00:00 2022-08-27 00:00:00 (TEL) STLMLC STLMLC [id number] [facility] 2022-04-13 21:00:00 2022-04-13 21:30:00 Care Ruthie Brewer [id number] 675 [facility] [place] 2022-03-29 00:00:00 2022-03-29 00:00:00 (TEL) STLMLC STLMLC [id number] [facility] 2022-02-26 15:30:00 2022-02-26 16:30:00 LADARIUS Mcadams [id number]. [id number]. [id number] CLACXCJCZF RITIKAY [facility] [place] 2022-02-21 00:00:00 2022-02-21 00:00:00 Outpatient DMG DMG [id number] [facility] 2022-02-15 00:00:00 2022-02-15 00:00:00 (TEL) STLMLC STLMLC [id number] [facility] 2022-01-12 00:00:00 2022-01-12 00:00:00 OFFICE VISIT ESTAB PT LEVEL 4 STLMLC STLMLC [id number] [facility] 2022-01-01 00:00:00 2022-01-01 00:00:00 Outpatient DMG DMG [id number] [facility] 2021-12-28 00:00:00 2021-12-28 00:00:00 (HOSP F/U) Hospital Follow Up STLMLC STLMLC [id number] [facility] 2021-12-25 00:00:00 2021-12-25 00:00:00 (TEL) STLMLC STLMLC [id number] [facility] 2021-12-15 00:00:00 2021-12-15 00:00:00 OFFICE VISIT ESTAB PT LEVEL 4 STLMLC STLMLC [id number] [facility] 2021-12-15 00:00:00 2021-12-15 00:00:00 ([facility]) Medicare Wellness STLMLC STLMLC [id number] [facility] 2021-12-08 08:03:00 2021-12-08 08:03:00 Outpatient DMG DMG [id number] [facility] 2021-11-10 00:00:00 2021-11-10 00:00:00 (TEL) STLMLC STLMLC [id number] [facility] 2021-11-07 09:00:00 2021-11-07 09:00:00 Outpatient DMG DMG [id number] [facility] 2021-11-03 00:00:00 2021-11-03 00:00:00 (TEL) STLMLC STLMLC [id number] [facility] 2021-08-22 00:00:00 2021-08-22 00:00:00 OFFICE VISIT NEW PT LEVEL 4 STLMLC STLMLC [id number] [facility] 2021-07-22 09:00:00 2021-07-22 09:00:00 Outpatient DMG DMG [id number] [facility] Results Test Description Test Time Test Comments Results Result Co mments Source [facility]2025-02-01 09:18:29* Test Item Value Reference Range Interpretation Comme nts POC Glu (test code = 4710109726) 118 mg/dL 70-99 H POC Performing Location (christopher t code = 8791352475) 4 STROKE Lab Interpretation (test cod e = 37717-1) Abnormal [facility]2025-02-01 01:22:05* Test Item Value Reference Range Interpretation Comme nts POC Glu (test code = 6961588296) 87 mg/dL 70-99 POC Performing Location (christopher t code = 0523125508) [facility] STRO[facility] Erzunyr3699-34-11 00:41:51* Test Item Value Reference Range Interpretation Comme nts POC Glu (test code = 3402857544) 98 mg/dL 70-99 POC Glu Comment 1 (test code = 1531662771) Notified RN/MD POC Performing Location (christopher t code = 9017022045) [facility] Mzcjhkv1939-72-55 20:38:49* Test Item Value Reference Range Interpretation Comme nts POC Glu (test code = 9522902399) 102 mg/dL 70-99 H POC Performing Location (christopher t code = 8494340459) 4 STROKE Lab Interpretation (test cod e = 89320-2) Abnormal [facility] Dzveotm8274-55-44 18:43:57* Test Item Value Reference Range Interpretation Comme nts POC Glu (test code = 6418009883) 93 mg/dL 70-99 POC Performing Location (christopher t code = 5809765174) J4E STR[facility] Ehhztjo4441-49-56 13:25:47* Test Item Value Reference Range Interpretation Comme nts POC Glu (test code = 6887341126) 151 mg/dL 70-99 H POC Performing Location (christopher t code = 1682121690) J9 Stroke Lab Interpretation (test cod e = 35208-1) Abnormal [facility] Whbsxvc6960-12-94 12:39:19* Test Item Value Reference Range Interpretation Comme nts POC Glu (test code = 0268165932) 224 mg/dL 70-99 H POC Performing Location (christopher t code = 4691761440) J4E STROKE Lab Interpretation (test cod e = 21942-3) Abnormal [facility] Rtagkoj7115-53-41 12:38:57* Test Item Value Reference Range Interpretation Comme nts POC Glu (test code = 8008199773) 39 mg/dL 70-99 LL POC Glu Comment 1 (test code = 9808993733) Notified RN/MD POC Glu Comment 2 (test code = 8151015365) Repeat Test POC Performing Location (christopher t code = 7056620380) J4E STROKE Lab Interpretation (test cod e = 32267-4) Abnormal [facility] Gvdkfjn7613-93-34 12:38:51* Test Item Value Reference Range Interpretation Comme nts POC Glu (test code = 4111050070) 42 mg/dL 70-99 LL POC Glu Comment 1 (test code = 3601581002) Notified RN/MD POC Performing Location (christopher t code = 0064425227) 4E STROKE Lab Interpretation (test cod e = 47141-8) Abnormal [facility] Igeeaep5821-38-75 12:38:51* Test Item Value Reference Range Interpretation Comme nts POC Glu (test code = 3680411571) 40 mg/dL 70-99 LL POC Glu Comment 1 (test code = 3259125988) Notified RN/MD POC Performing Location (christopher t code = 2117671274) 4E STROKE Lab Interpretation (test cod e = 13203-2) Abnormal [place] [address] lxic2708-03-25 10:49:56* Test Item Value Reference Range Interpretation Comme nts Ventricular Rate (test code = 5309018905) BPM Atrial Rate (test code = 1247722542) BPM QRS Duration (test code = 0371214360) 82 ms QT/QTc (test code = 5800517893) 336 ms QTc Calculation (test code = 6608457923) 486 ms R-Ruston (test code = 9693400195) degrees T-Ruston (test code = 0835360629) degrees IMP (test code = IMP) PXN (test code = PXN) [facility] Xswjjre1693-27-70 19:49:07* Test Item Value Reference Range Interpretation Comme nts POC Glu (test code = 3045170114) 287 mg/dL 70-99 H POC Glu Comment 1 (test code = 8299015493) Notified RN/MD POC Performing Location (christopher t code = 5495547853) J4 STROKE Lab Interpretation (test cod e = 12005-5) Abnormal [facility] Dkpunik4554-04-69 17:17:52* Test Item Value Reference Range Interpretation Comme nts POC Glu (test code = 1836651693) 266 mg/dL 70-99 H POC Glu Comment 1 (test code = 3274679127) Notified RN/MD POC Glu Comment 2 (test code = 2173926201) Sent to lab POC Performing Location (christopher t code = 3786107866) [facility] Stroke Lab Interpretation (test cod e = 71709-8) Abnormal [facility] Xtjdyjn3387-98-71 12:27:22* Test Item Value Reference Range Interpretation Comme nts POC Glu (test code = 5477169891) 185 mg/dL 70-99 H POC Glu Comment 1 (test code = 9584435438) Notified RN/MD POC Glu Comment 2 (test code = 8548375957) Sent to lab POC Performing Location (christopher t code = 9008093649) 9 Stroke Lab Interpretation (test cod e = 81819-4) Abnormal [facility] Fgdvahz8034-02-04 10:04:09* Test Item Value Reference Range Interpretation Comme nts POC Glu (test code = 5413231956) 147 mg/dL 70-99 H POC Performing Location (christopher t code = 7633384561) 9 Stroke Lab Interpretation (test cod e = 54910-1) Abnormal [facility] Nduvnsp1772-77-69 07:53:44* Test Item Value Reference Range Interpretation Comme nts POC Glu (test code = 3668271811) 172 mg/dL 70-99 H POC Glu Comment 1 (test code = 0074665313) Notified RN/MD POC Glu Comment 2 (test code = 9045416837) Sent to lab POC Performing Location (christopher t code = 7303673816) 4E STROKE Lab Interpretation (test cod e = 74201-8) Abnormal [facility] Jbcbqjc4593-00-67 06:05:58* Test Item Value Reference Range Interpretation Comme nts POC Glu (test code = 2194061229) 160 mg/dL 70-99 H POC Glu Comment 1 (test code = 4216121449) Notified RN/MD POC Performing Location (christopher t code = 3692632315) [facility] Stroke Lab Interpretation (test cod e = 98252-8) Abnormal [facility]2025-01-30 00:21:34* Test Item Value Reference Range Interpretation Comme nts POC Glu (test code = 3222244060) 262 mg/dL 70-99 H POC Performing Location (christopher t code = 8551822165) 9 Stroke Lab Interpretation (test cod e = 23016-7) Abnormal [facility] Gxfrwon5641-28-24 20:56:50* Test Item Value Reference Range Interpretation Comme nts POC Glu (test code = 1781379228) 324 mg/dL 70-99 H POC Glu Comment 1 (test code = 3775983553) Notified RN/MD POC Performing Location (christopher t code = 6309943595) [facility] STROKE Lab Interpretation (test cod e = 66808-9) Abnormal [facility] Mcyokfv5647-27-18 17:19:08* Test Item Value Reference Range Interpretation Comme nts POC Glu (test code = 6575713715) 282 mg/dL 70-99 H POC Performing Location (christopher t code = 9918642089) [facility] STROKE Lab Interpretation (test cod e = 93845-1) Abnormal [facility] Jjeutqg7302-10-34 14:33:56* Test Item Value Reference Range Interpretation Comme nts POC Glu (test code = 0331232242) 292 mg/dL 70-99 H POC Glu Comment 1 (test code = 2077475769) Notified RN/MD POC Performing Location (christopher t code = 9545583420) J9W Stroke Lab Interpretation (test cod e = 53332-5) Abnormal [facility] Uwggupvoizh4605-44-49 10:29:03* Test Item Value Reference Range Interpretation Comme nts Case Report (test code = 1499) Final Diagnosis (test code = 06437-2) o8jhmODrBCJjqJDwOJ EwNVxhbnNpXHNwbHRw G2LbhqnqIXtoBO9uCN 5veGxhdHRveWVuXGRl WfDom6jxf774gZSlo6 xmMCBTZWdvZSBVSTt9 lXnfL33xn7E5SyemY7 8gzXQoBKV6LLSqRZEw tUDjQDWoJPU1ZSGveT CrV1uwVRWaFS3bculf WVpcTKxwXPWkfMM6LB LnqRRnH5HfFRNaOPdh BEAxayj3NrPmYk3mpN VyeTcyMFxwYXJkXHBs YWluXGJcZnMyMCBTdG 2xGYAcDIFujJ8rz9t4 GRQqoeUmXWYegCx9WO Mvbq7fsJFzECwkt6Vh qQFcqv6fKVK1uo7rDF XzzZE9fDQfEMUrMVJ2 aXZlIGVwaXRoZWxpYW cvU0btsjztrzAakdZx fQ74QKB0iF4ggKJhRA JouKqlo8skNSWsh03p hOX6KUWmtcZpuF4zs0 4niKG5OZV2gBJhju3y oWNdWO4rCfCiINYxiz IwYi1fJSC0u6DyEFGl XW3ahYFtAL4gN7KqDF RvoR5ffjLkLWAllj7= Diagnosis Comment (test code = 35) z5qxtQUxVQGbjRLcXJ QuGHy2zUPvo8Q7foke FT3obPpcoSs1nNupSM MlwuN9cTXwVSddr5jb HQG2i0fevgorWOHrLJ idRx5xmTEvtRozLvNf C9Ely9GoMMt3mP84XS BvuZ6zdPLgQAvokfWv NwX1TKwxGZQyMdO4UL XpvFQfRJV4pMqqOUFi oqsoJmK5NQuxNPYllm ziYUa3KQsjPBWinWO1 ZWDlaSUzO2WhGHOaHO 1phvc0RID8CSixLVQm LcV7XCUtiMIqTKWvjT yiRXmvy020PZQ6ClOv JYXsacIbF4JbTPKjYZ W8PhrzYXW5LmE4FZy6 eDEwMjYwXHBsYWluXG ZzMjAgSGVsaWNvYmFj gFMeGWD0tD5tsRMelV 23iv8bsGA5h0MpGE3f S9IqQQD0ZKvcOWbhQI RdimRmee7tTLRxqkOt lI8ydaBRYJidwHGdYG P6mZUjM1VpGvXKyFPo ZSBhcmUgcmFyZSBzdG IyhkymThAkTYS1mYPq ZXMuIFRoaXMgZmluZG luZyBtYXkgcmVwcmVz UC31POGcO2ntit26lh Zmsk0cm4EnE3nbtTPd r2ZenV3tyousALgqa0 Y7LMPnZBWvAQNzb3Rt zAJteAt7nKYkYpELTF gjI52eDVM5YEPwyTnt f5UsHGvoZlQnuEjawf DdMM3gpt77APUfUQB6 R0y3SSStUxJFd6FpBK lejLycbsG6nVYoYE18 hVAkTZJuKIshs3T0hB JrwG8kITitiGpfskWi BW5jRhTfakWuaVyadK YxdEzzG2vPYEOao1Si BX9fhXVyECTqj35vmJ RlcmVkIGZvciBmdXJ0 eVQrMMY9XKy4IQZln5 9zpLSvW7nsxtijZIsk iBBomuTaJ7G4XQGkFM BccGFyXHBhclxwYXJk GWEvoMT8LJw0uYE8LG t0iVWfDoGjJ4vnWlBl qYIzFOX6tYQnHKNwv1 b0TGYvZOY7zbv0uOGp A5RzhQFprPB2lOhssQ RtY7udyeXobOXgjJzq UCSsoFCbbc5ttNIiWG ioi8kworJomKdiaERj EPLzwS5rCULed8F8jN qbDRF0YWClHYmaw5A1 viBnf9KgxOrrRPfpf4 VomMXyoHGfw0NnJDOn PDahnvTioN48bgMiwL JazIDnI1DpONrqiMVy LFNaKKXmV69sq9ihDA BuzVzwBP9oZYMahCpx qkygLZdpkHItsWH8FV TjEOX1oPReeK4wzF4c LWEwSX5pGELwT9iruG 21wQIqPZO8BOKcqLur OPClMpd1tAladMRdgF biMHRonWM7GJ8lSxFv kuByP6Nhk34qACeHGX boi08diCgiSYagv5I1 JNVeWKE4uuTpigOmwM FttI5sXJOzdEQyvlet j4TwA3TqfFntO8jmYz CrbBRgRF5hNRGnbVLl NRHqw3Gcp8FtbyEiOC ibncKapAT5pW0xHRai YL65S96tCVubIttdb5 QgZmxvdyAoaXNjaGVt wBTbQ4RgbHVpjCV9jR kpLiBccGFyfQ== Clinical Information (test code = 29) x7gcoKKjDPLvoRNsSB EwNVxhbnNpXHNwbHRw D6RsyqlbZYlzDM1fRY 5veGxhdHRveWVuXGRl AwAvv4pss408pLEfu3 xmMCBTZWdvZSBVSTt9 tPpnR10zu8M4ApdgH4 xyZWQwXGdyZWVuMFxi fCWhEMk5OOSwdFOmeg EyMjQwXHBhcGVyaDE1 OBMiLJ0dqycvPKvpHR goTSVyxmH0PWUteWKb R1LrUCHrVO4hdzshTW G1GJllFKHnLGQ6WtWp OOIuh2Lnxqd0VuGdwU FyZFxwbGFpblxmczIw TJLwrBIutEGuYYF6AC C7kuAVKTWRS5Edu5Mn EMKvalYein1hXEFovU 93zS7zCD2frf0loMEl M0EmHBZpi6XuZEo3wj 1vSDI2nZfkgFE1l5Ka VM99E27aMRW1yAFrNG Cmy3Yqa65hrH5rgJsq YBS0i23oD1v0YHPcfb Wfms8jDCAlr7jaOUGy neAoxWPoIevptPV0SS GbCWF0dOGmg9P1IMvd TYN0xS8mlS1oWoPstC YndGM7RMfsaZUcqces ZcUBTz7cqo8pvPDplR Pjw6Sft6w3aQZhjh9v zM9sBXtgFOUcLSQdxE 7cRW9hnNTeqEwdRpFH RUcgdHViZSBwbGFjZW RyrO3ljOmqRNS6h80k V1qhWCUntp3= Macroscopic Description (test code = 1125247919) i9bqmZTwGDYnhQUPLC XpUUZkQK8sxZzlsDv1 oHcaOACkihV1rRZjXB isl7dkUIE1v0kmocTR CbjxLARaDX5kXXrbZS CbSM2tAmEiFVKqDtGu XHBhcGVydzEyMjQwXH LelWJaqAR5MUAxKE4i cmdsMTgwMFxtYXJncj C9TIXxfMLvY0GmRTOf WZ3xuyejRWW2WAWWDo xjJa0fuOVjmUjbZyFm ZmNoYXJzZXQwXGZzd2 lzcyBTZWdvZSBVSTt9 jU9XVSIoY1CfUE8Mr9 dpEVOcsHGrFQQ9GNec x7msZTdaCBW8FWPrKQ AuPQQaOR9XEbTgNBUm PUS9YgzrZTc9INp4QW VVCJZ1LWQ4MPA5BJf1 RJYbEI6lCEeygIAnND wsMfcbRJyiN096YSye DSAwB5OwU0HjCJhsCe BcXGlkIDUxMDAyIFxc ECIkV8SWBYWxFdN7PB U1MSHrNCl8SHcbP2IQ JWYmMYNcOFD7Lrg2Hr O4LTf9JDTHNr3dJhMc Xio5DgZ5RIF4BdGbWZ zjjYHsDNnmu5ZiCjCc WDDmLGyacuC5ARFfyg KcIOmqhUmglD5mJeRw ACVHMdTUBJL0lbeoRV FESM5lq71pCQx5fmCb YAYmZxLjbNNrFB9QVH MrobSmSOgjnJffqG4a eXPbW7ejRfUaIhassT ljTmVzdERvYzEgDQpc bHRycGFyXHNhMzBcZX PeA7ccPJNbBX3NNcDf ELi5QZLfuJ2wXe3pxK FrnH6fxDNyCHulAMN3 aXRoIHRoZSBwYXRpZW 49R9YfpvVnMUkoVRLG SRMavrZmIbEeWO4uf6 4oY7PotIQrNkHtlU4d t0imHIIjMBF4ABHtup 1seD9xLNFeIRUdMK8s RDKrLiKrbZjhv7HjJW zydCXyBP1jFVE2lvTt IDAuMiBjbSBlYWNoIG DrODPycsMim3CokTl0 uXKePLozJWQojK5tlZ 9lY3Krp3O2pDXfEXEc VIeoDDWoP91xw8IXs0 Cxl9pwqJpjf3QskEGq KA21LWOatPStOXK8TT 5kfVxwYXIgDQpccGFy ZCANClxwbGFpbiANCn 0= Microscopic Description (test code = 32) k1jjoKDgUFWtcCCxPB EwNFxhbnNpXHNwbHRw Z4AwsnfyHFktOH7lIC 5veGxhdHRveWVuXGRl IzYgq9jrd656jTUda7 xmMCBTZWdvZSBVSTt9 h4wvTDKAlkrvrFk3aF wqZ47qd8A4YgelD99m pKSsSVG8GCVgDDNoxS WvPFKfUGA3KTIlmLWy C5dqMVKcJQ8dstriWY gwMQlkRFWlbNK4YHPl tLBcX4IyHLDhKZqhLV Dqgay7GkUrOn8gzYZw kMmzLAvcR1cetV9sVf Y0UZujU4zhdG8pILd2 WXavBZRvpTE1idH9KS XgrZAsO6NbmK2vRRGs XV2ynnc4d2xhPUQ9AW cqFUShKcR0kiY1WDGm cGFyZFxwbGFpblxmMV ygqvPoORRmoSqymi2n Z53zuGKlJZbgrTtlBL Vqs00dmUNoMDVzNI5q oAPiDf7jcJRaSIWgCG Q3iWXwFkqoPSluI0Ai GOKlEDvqG59vtL8eRJ YbRBUjnxE2vUQfQWyl A18wo3qcCKCgg2RcDi HAjRLodA4qcLSxwvTj RY8mXJ9fN4H7oNNiUH OxgeTay0hlKZVfbsAa dZrceYecqC2saLYakX QntMQdvqQkiW6tbV4d vZvuaH1ogNNitGVikO BzdGFpbnMsIGlmIHBl kwQwph1yTMMcf1TexZ hpcyBjYXNlLCBoYXZl WZBvVC5suvW9fJD4TV DgYB6hZZK0amvdg3Jk c0WsPJQ5gZCrJY4upE FlOXQvQHOrXHXaNM4e Rt96gwSzbU7uRgUbMV Txsu7lgcbfiXYaRKLq cn0= Non-Clinical Documentation (test code = 2458362963) r8hzsVSsDDJzn7wxGW VmbGFuZzEwMzNcZnRu YmpcdWMxIHtccnRmMV gigQvzNAWkNTDoGX5f oNycrNz0rQsmLXZjot J0wEUhDAjkr7izGOR2 e5pfzpvgVGRqIZlnSv 9mqJWaaBllFqQhP4Yo y7RxPXz5xRrdOfPzHU ElZFg8gI49ZMTksC1i kHRoUYh6VPFlvSZwqg EyMjQwXHBhcGVyaDE1 PYYwSG7cpgfhVXciKT mxFMKmgxT6EUAkxBIu K2YaAAFnSZ4kdugrMT D6DQqhLTPbGPD2SaVi YWVji6Mpbbm3CtMtcT q7y0nqWPStSZUsgTnb g3ttFAN6QBPliGWnR0 vsmG3nJFZbMG2kwswi a7atBVhfMXvpXWDdoV X9pbJ2TNYarENiV3Yr uN8iZFPzDSZhguNrgT uroF4eOjFrJyQbBWWK o18hNK5zOEOwSYHbeK 16hw6haYC9g6YdLW0s V8RfXJHho9EnCFerER WdqSEeaQFjLCqgl2Tb QSXnIJOarT4sEGPpJJ 5kIHRoZWlyIHBlcmZv os1agyGaJLWvHMDtV3 RlcmlzdGljcyBkZXRl wl8lxdCtGFX8UX4dlO 2bvMJdTVjcgk4lbq5a B432hJt6IYJ8UFudc3 IerAGsBPjuDi5sAYNs hpjcKMVPrBR9ORpjfj Gbji25TBVeJL0rV8at YXJlZCBvciBhcHByb3 WqZJRjdTV8rJPjJM5i Qy2qWg4gBMOqevNjUK T1PbBPFL2kbbowpFGs qGbxvz8yKBTyDEJONM EgaGFzIGRldGVybWlu ZWQgdGhhdCBzdWNoIG YkDFTjON5dOPAjqdSk gEQse5JnpCQxtnXwq1 WyipYcSXIdUWT7FjEh GKrku3OsxYGgdDBhTI IiVWQcGYDbYn7lASOb eG3yT7XjOES9bmWwb5 QaMzRyYRuggONqaA72 uSBtef94CPTfDEZcE3 FyZGVkIGFzIGludmVz xRvpRMYmq44dkHWvey Drr9ZcooVeOQNeH5va XLJXyCqpVWsxGl5eKA RvcnkgaXMgcmVndWxh dGVkIHVuZGVyIHRoZS BDbGluaWNhbCBMYWJv xeD1y5G2LUibhSNciu EpKQ16VDJcDP8neHYf vVNtr7NdoZlbCXC1TO ggKENMSUEpIGFzIHF1 IOivFdxaVFY6ycEbCQ Hdi2AeCDkaM2bzO66t kYxrbNy9lZGymMwegR ScgOZ0HXF9eL7cIbDz cGFyfXtccnRmMVxhbn NpXGRlZmxhbmcxMDMz OEB4ixAkWDLsVQN1FH N8CxNjIJKwFfLhCPUm DXUxu9lgg4IzyXCtpE FbNQpcwXBozaYixr83 dMH3xQ48AJ7cFHJrKf B5MGReajL1Aft2MPYt GUXfY46wUNYLP577a2 sli5nwlkNpsPO4AXAd UOHoE9ZbOW7vFHMwjA CzO92nqAWzDUR9NUEp PAMhuFKfHIWyCIX3YW EdwEVbU1ixKDPgFC0q cmdyMTgwMFxtYXJndD H2ZCWlgKNhL0YqTRZg BWfcBWHzrlp5LcPrAu 0oqGChpMvpTZsfU8qo yF1zSjH4RYlfC7qwsX 5jJJi9HBwzRTOtdJN7 hzR9PWBsgMYgH2WxfX 8mJQUiBX5ccmq7z4qe DMX5LFcnIYAnBgB3nv K8TOVaxDNjJStiiQHc blxmczIwXHBhclxjZj ZkYExue5WmGVYjs3Lw o8MzuscbXM4lUYTxeQ GwIBNqQIFfzsE9tA4e YKVbwjPbsk2fWUGlzH RVEP4hdbeavUYMZTPw AD8kX1KNEFRwgPUxQQ 8fTG0WXUkox7CghXXr YwegYNXtEWijhn3nP2 9waWMgZXhhbWluYXRp n91hEN4wHKGmFRbwc3 PoubIzNXPeu7CxQCRq CMCxLWKeq7VzCGgsDX ObaCYrjj0WVTdgREn6 tYCwZUFWJiWPj4DidP NvkJ7zpKKsKWP3RGMa SbStczkfJAPQo8CxwE 8gUEPXQRW5UuYzXY6e hEDryC17 Teaching Physician Statement (test code = 2395059850) s9husFBsKWAefFTrVl MnTNQiVQOdf7saQOEi bGFuZzEwMzNcZnRuYm ysvBJrXEFjOzTuj5od l281xLGtv9aeMVNlXj D7aMUmCQHxC06yXYGX J227CHDzTJxkn6pep7 UrWUKyuRGff6S1RWKA dhaskQy5cJvvE00hj1 D7IhkhG9hxDQKwNXQa B3OkEB9lZIGhGwk7HC X1XOT1ZICtUOAdI5Xy LT5iKBIhpQPyRGf4t4 chfEgyICHeMWM0u0pn NOyoqwNqRD3wxd1emE v3a8jpjrAiHTCyBZDt kHHEJLCxU7CnoZytXu 8vaOm7kKyaMnycLKR9 Kgg3TQ9gkm69jfr3oJ xgXRPdqdutVoP5DYov UPIjwzzzHEl8NEmoCX PlhRC5HANnvOWrL8Ty OWZhFL2pbgv3EME9MX zkDUDuZkN2AFEliVRf CWLhtBauAMhkp461WX N1KdYhPY8sZ6Iih2Y2 sN2urTTrOILioAIsVi YoHXDhwm8pmRQpLDxm n8OqFOO5fbS1qKZnlQ EsIYRmSW25Dcuah7Bo BnlsBSI4WBJoyjLbq9 Gkp7fhTyXqroNiQ8er M0FpKLIuEINiTBRzYf FawkNpk2Lnp5WhjSDu dRp8r8ieBZXfYFDgmH txx0qiTCX3UIEeE8Q9 tKPmo5wvZZjwYXFlnG Z5qrL9CENlaKUtD0Jo wG4cJIScCL7tzkn7v9 weODP5OAwsSXOuDaF2 jyB8FFHykWRhZWJbzB wyOWtqy228DYH0UyVj TJOim2FmM3UhnXttN2 0rrSfgC60wUGKmkElu rN0vtXsuzH1pYiGaRp MyNFxxbFxwbGFpblxm MVxmczIwXGxhbmcxMD IuXBssC0odAjScLUHo qMdxIXshu4PiKQOkTZ DzAaTdSrbkmQL3VEEc DOVhz00yjUz6GFAohr ogt1ChYCRtQLHxVOKr ZGVudCdzIHByZWxpbW clAKI8ZSeqdMDjjBPx zNM1iY4rCXUcPQFjpT wsz2TvA0wqIE4ejXZl gMZqTFFnh29xQYAeXE BoYXZlIHBlcnNvbmFs bHkgaXNzdWVkIHRoaX GctbCtd6G0LkEwfNOe fQ== [facility] Usscrqs7781-11-66 09:04:38* Test Item Value Reference Range Interpretation Comme nts POC Glu (test code = 3124269321) 136 mg/dL 70-99 H POC Performing Location (christopher t code = 6553348511) [facility] Stroke Lab Interpretation (test cod e = 25561-5) Abnormal [facility] Ofnmzgn7662-28-95 01:01:36* Test Item Value Reference Range Interpretation Comme nts POC Glu (test code = 7401780912) 118 mg/dL 70-99 H POC Performing Location (christopher t code = 2662029933) [facility] Stroke Lab Interpretation (test cod e = 10090-8) Abnormal [facility] Ruyuqkv7469-88-03 21:10:29* Test Item Value Reference Range Interpretation Comme nts POC Glu (test code = 4083281156) 386 mg/dL 70-99 H POC Glu Comment 1 (test code = 2852418300) Notified RN/MD POC Performing Location (christopher t code = 6362454693) [facility] Stroke Lab Interpretation (test cod e = 87682-6) Abnormal [facility] Cptbvrh0966-49-36 18:00:49* Test Item Value Reference Range Interpretation Comme nts POC Glu (test code = 0901545432) 339 mg/dL 70-99 H POC Glu Comment 1 (test code = 6870619431) Notified RN/MD POC Performing Location (christopher t code = 6944715342) E STROKE Lab Interpretation (test cod e = 00131-4) Abnormal [facility] Qeynzrk7324-48-64 17:51:50* Test Item Value Reference Range Interpretation Comme nts POC Glu (test code = 9652914733) 334 mg/dL 70-99 H POC Performing Location (christopher t code = 9851305399) J9W Stroke Lab Interpretation (test cod e = 87622-7) Abnormal [facility] Qamnwpr7354-70-38 14:28:32* Test Item Value Reference Range Interpretation Comme nts POC Glu (test code = 7910634981) 428 mg/dL 70-99 HH POC Glu Comment 1 (test code = 0373789771) Notified RN/MD POC Performing Location (christopher t code = 3805131623) J4E STROKE Lab Interpretation (test cod e = 82198-7) Abnormal [facility] Xtecsvj3842-56-01 12:40:52* Test Item Value Reference Range Interpretation Comme nts POC Glu (test code = 7340831500) 496 mg/dL 70-99 HH POC Glu Comment 1 (test code = 9126902648) Notified RN/MD POC Performing Location (christopher t code = 1805400822) [facility] STROKE Lab Interpretation (test cod e = 76059-2) Abnormal [facility] Haqeeyf7319-02-57 10:29:51* Test Item Value Reference Range Interpretation Comme nts POC Glu (test code = 8209078311) 382 mg/dL 70-99 H POC Performing Location (christopher t code = 3294723008) [facility]4E STROKE Lab Interpretation (test cod e = 93290-7) Abnormal [facility] Sumxkdy8360-61-39 08:48:04* Test Item Value Reference Range Interpretation Comme nts POC Glu (test code = 7629872296) 207 mg/dL 70-99 H POC Glu Comment 1 (test code = 1488086892) Notified RN/MD POC Performing Location (christopher t code = 5855808704) [facility] Lab Interpretation (test cod e = 51154-2) Abnormal [facility] Reksdmf6913-62-61 06:13:01* Test Item Value Reference Range Interpretation Comme nts POC Glu (test code = 4998921285) 180 mg/dL 70-99 H POC Glu Comment 1 (test code = 4286879177) Notified RN/MD POC Performing Location (christopher t code = 0144911228) J9W Stroke Lab Interpretation (test cod e = 26202-4) Abnormal [facility] Hslujki9010-53-61 04:22:09* Test Item Value Reference Range Interpretation Comme nts POC Glu (test code = 5339242632) 182 mg/dL 70-99 H POC Performing Location (christopher t code = 5038792170) [facility] Lab Interpretation (test cod e = 89577-2) Abnormal [facility] Crvvcqv5817-62-07 23:36:20* Test Item Value Reference Range Interpretation Comme nts POC Glu (test code = 1883805991) 371 mg/dL 70-99 H POC Performing Location (christopher t code = 2940208769) [facility] Lab Interpretation (test cod e = 99567-4) Abnormal [facility] Rbkmtgt2241-33-93 20:43:03* Test Item Value Reference Range Interpretation Comme nts POC Glu (test code = 8971291889) 360 mg/dL 70-99 H POC Glu Comment 1 (test code = 6176212742) Notified RN/MD POC Performing Location (christopher t code = 1236300464) [facility] Lab Interpretation (test cod e = 99563-4) Abnormal [facility] Adwlbtx2208-32-27 16:46:41* Test Item Value Reference Range Interpretation Comme nts POC Glu (test code = 1596214920) 453 mg/dL 70-99 HH POC Glu Comment 1 (test code = 3406789093) Notified RN/MD POC Performing Location (christopher t code = 6136682011) [facility] Lab Interpretation (test cod e = 06127-8) Abnormal [facility] Zxrtvnn9869-77-52 13:47:09* Test Item Value Reference Range Interpretation Comme nts POC Glu (test code = 1203340852) 346 mg/dL 70-99 H POC Glu Comment 1 (test code = 8156975154) Notified RN/MD POC Performing Location (christopher t code = 0482009575) J9 Stroke Lab Interpretation (test cod e = 62404-9) Abnormal [facility] Ngkzbmh5791-80-32 09:05:17* Test Item Value Reference Range Interpretation Comme nts POC Glu (test code = 6932781301) 287 mg/dL 70-99 H POC Performing Location (christopher t code = 2856414888) [facility] Lab Interpretation (test cod e = 34027-1) Abnormal [facility] Ryoabhz7263-48-36 05:55:23* Test Item Value Reference Range Interpretation Comme nts POC Glu (test code = 3198346553) 280 mg/dL 70-99 H POC Glu Comment 1 (test code = 0945077409) Notified RN/MD POC Performing Location (christopher t code = 6044962325) [facility] Lab Interpretation (test cod e = 28234-5) Abnormal [facility] Momrffb8858-37-74 00:31:27* Test Item Value Reference Range Interpretation Comme nts POC Glu (test code = 2478316552) 317 mg/dL 70-99 H POC Glu Comment 1 (test code = 9240427143) Notified RN/MD POC Performing Location (christopher t code = 7549072683) J9W Stroke Lab Interpretation (test cod e = 90451-3) Abnormal [facility] Rtuislp0534-59-31 17:03:04* Test Item Value Reference Range Interpretation Comme nts POC Glu (test code = 4085557506) 282 mg/dL 70-99 H POC Performing Location (christopher t code = 3429240603) J5 NEURO Lab Interpretation (test cod e = 75992-5) Abnormal [facility] Vsdxeji1812-75-32 12:35:59* Test Item Value Reference Range Interpretation Comme nts POC Glu (test code = 3713382805) 199 mg/dL 70-99 H POC Performing Location (christopher t code = 7199253777) J5 NEURO Lab Interpretation (test cod e = 26511-1) Abnormal [facility] Pvwlsho3122-47-74 09:43:16* Test Item Value Reference Range Interpretation Comme nts POC Glu (test code = 5483115200) 229 mg/dL 70-99 H POC Performing Location (christopher t code = 2210110728) J5 NEURO Lab Interpretation (test cod e = 30242-1) Abnormal [facility] Lkesoan0380-21-95 06:24:46* Test Item Value Reference Range Interpretation Comme nts POC Glu (test code = 1754197599) 244 mg/dL 70-99 H POC Performing Location (christopher t code = 8007853082) J5E NEURO Lab Interpretation (test cod e = 14064-2) Abnormal [facility] Tfiuqjb5510-23-47 00:16:19* Test Item Value Reference Range Interpretation Comme nts POC Glu (test code = 0702946528) 229 mg/dL 70-99 H POC Performing Location (christopher t code = 2689392489) J5E NEURO Lab Interpretation (test cod e = 00675-1) Abnormal [facility] Liddtcz9767-48-73 17:09:06* Test Item Value Reference Range Interpretation Comme nts POC Glu (test code = 9763577678) 337 mg/dL 70-99 H POC Performing Location (christopher t code = 3741710951) J5 NEURO Lab Interpretation (test cod e = 63606-3) Abnormal [facility] Dkmhipv7598-40-62 07:41:31* Test Item Value Reference Range Interpretation Comme nts POC Glu (test code = 5134472951) 246 mg/dL 70-99 H POC Performing Location (christopher t code = 1120652307) J5 NEURO Lab Interpretation (test cod e = 00072-6) Abnormal [facility]2025-01-25 06:19:34* Test Item Value Reference Range Interpretation Comme nts POC Glu (test code = 0067238954) 229 mg/dL 70-99 H POC Performing Location (christopher t code = 3736465382) J5 NEURO Lab Interpretation (test cod e = 39708-3) Abnormal [facility] Siprmqu9779-07-53 01:11:15* Test Item Value Reference Range Interpretation Comme nts POC Glu (test code = 6064737947) 275 mg/dL 70-99 H POC Performing Location (christopher t code = 9425590527) J5 NEURO Lab Interpretation (test cod e = 56098-9) Abnormal [facility] Eixdrhw4193-18-21 15:25:56* Test Item Value Reference Range Interpretation Comme nts POC Glu (test code = 3594091507) 295 mg/dL 70-99 H POC Performing Location (christopher t code = 7740771519) J5 NEURO Lab Interpretation (test cod e = 04761-8) Abnormal [facility] Wabghqf5077-29-47 08:15:16* Test Item Value Reference Range Interpretation Comme nts POC Glu (test code = 4139798540) 143 mg/dL 70-99 H POC Performing Location (christopher t code = 9035427167) J5 NEURO Lab Interpretation (test cod e = 68651-0) Abnormal [facility] Whfftlp7153-41-36 22:31:21* Test Item Value Reference Range Interpretation Comme nts POC Glu (test code = 2136893902) 144 mg/dL 70-99 H POC Performing Location (christopher t code = 2246965533) J5E NEURO Lab Interpretation (test cod e = 88039-7) Abnormal [facility] Xewrupq4708-81-34 21:10:17* Test Item Value Reference Range Interpretation Comme nts POC Glu (test code = 7426757494) 171 mg/dL 70-99 H POC Performing Location (christopher t code = 2355422593) J5 NEURO Lab Interpretation (test cod e = 77478-9) Abnormal [facility] Gkobveo6042-74-71 15:25:38* Test Item Value Reference Range Interpretation Comme nts POC Glu (test code = 9381532016) 215 mg/dL 70-99 H POC Performing Location (christopher t code = 1363950659) J5 NEURO Lab Interpretation (test cod e = 28958-1) Abnormal [facility] Fjssizz8045-05-65 13:18:11* Test Item Value Reference Range Interpretation Comme nts POC Glu (test code = 9389764180) 188 mg/dL 70-99 H POC Performing Location (christopher t code = 8459521153) J5E NEURO Lab Interpretation (test cod e = 51796-7) Abnormal [facility] Ogntnqf6287-82-04 08:57:39* Test Item Value Reference Range Interpretation Comme nts POC Glu (test code = 2606738776) 111 mg/dL 70-99 H POC Performing Location (christopher t code = 5735159597) J5 NEURO Lab Interpretation (test cod e = 36983-7) Abnormal [facility] Ukrmcqd0153-53-02 00:29:19* Test Item Value Reference Range Interpretation Comme nts POC Glu (test code = 3529780509) 252 mg/dL 70-99 H POC Performing Location (christopher t code = 2622723368) J5E NEURO Lab Interpretation (test cod e = 60995-6) Abnormal [facility] Xgajari7790-32-60 21:06:43* Test Item Value Reference Range Interpretation Comme nts POC Glu (test code = 7332629970) 241 mg/dL 70-99 H POC Performing Location (christopher t code = 2429475144) J5 NEURO Lab Interpretation (test cod e = 57759-5) Abnormal [facility] Ijeyboy2475-96-97 18:01:06* Test Item Value Reference Range Interpretation Comme nts POC Glu (test code = 6119084638) 198 mg/dL 70-99 H POC Performing Location (christopher t code = 8927180418) J5 NEURO Lab Interpretation (test cod e = 10059-3) Abnormal [facility] Jdkhbbh1998-69-12 14:43:35* Test Item Value Reference Range Interpretation Comme nts POC Glu (test code = 2209527948) 199 mg/dL 70-99 H POC Performing Location (christopher t code = 1173694157) J5E NEURO Lab Interpretation (test cod e = 76371-1) Abnormal [facility] Hhsuwml0226-12-39 08:24:49* Test Item Value Reference Range Interpretation Comme nts POC Glu (test code = 5562389505) 187 mg/dL 70-99 H POC Performing Location (christopher t code = 9756407551) J5 NEURO Lab Interpretation (test cod e = 67319-3) Abnormal [facility] Mdqggtq7368-46-08 06:12:51* Test Item Value Reference Range Interpretation Comme nts POC Glu (test code = 1172422165) 199 mg/dL 70-99 H POC Performing Location (christopher t code = 5330851115) J5E NEURO Lab Interpretation (test cod e = 78296-8) Abnormal [facility] Reyjwcd8848-75-90 00:18:55* Test Item Value Reference Range Interpretation Comme nts POC Glu (test code = 6143334438) 264 mg/dL 70-99 H POC Performing Location (christopher t code = 9944744326) J5 NEURO Lab Interpretation (test cod e = 37781-0) Abnormal [facility] Firwbwe4786-59-56 17:49:11* Test Item Value Reference Range Interpretation Comme nts POC Glu (test code = 5466478904) 264 mg/dL 70-99 H POC Performing Location (christopher t code = 8903945970) [facility] Stroke Lab Interpretation (test cod e = 81357-5) Abnormal [facility] Xwvyiaj0421-13-11 16:36:00* Test Item Value Reference Range Interpretation Comme nts POC Glu (test code = 2187582835) 261 mg/dL 70-99 H POC Performing Location (christopher t code = 7820604096) [facility] Stroke Lab Interpretation (test cod e = 62635-7) Abnormal [facility] Ttfgvff3034-75-17 11:54:46* Test Item Value Reference Range Interpretation Comme nts POC Glu (test code = 3341533494) 326 mg/dL 70-99 H POC Performing Location (christopher t code = 2471937297) [facility] Stroke Lab Interpretation (test cod e = 02628-8) Abnormal [facility] Oidwbub0612-21-33 08:21:27* Test Item Value Reference Range Interpretation Comme nts POC Glu (test code = 3290921691) 272 mg/dL 70-99 H POC Performing Location (christopher t code = 7820819103) 4 STROKE Lab Interpretation (test cod e = 89706-8) Abnormal [facility] Qbhnavk2347-81-07 08:10:12* Test Item Value Reference Range Interpretation Comme nts POC Glu (test code = 4551671985) 269 mg/dL 70-99 H POC Glu Comment 1 (test code = 9321241803) Notified RN/MD POC Performing Location (christopher t code = 2604559700) [facility] Stroke Lab Interpretation (test cod e = 33255-7) Abnormal [facility] Krotgmx9271-01-52 18:21:27* Test Item Value Reference Range Interpretation Comme nts POC Glu (test code = 9258826595) 285 mg/dL 70-99 H POC Performing Location (christopher t code = 8588451191) 4 STROKE Lab Interpretation (test cod e = 85273-6) Abnormal [facility] Jtdcosp2202-80-69 12:17:22* Test Item Value Reference Range Interpretation Comme nts POC Glu (test code = 6153194621) 375 mg/dL 70-99 H POC Performing Location (christopher t code = 9313898130) 4 STROKE Lab Interpretation (test cod e = 29230-2) Abnormal [facility] Eitlzla9455-28-55 08:30:01* Test Item Value Reference Range Interpretation Comme nts POC Glu (test code = 6539479188) 224 mg/dL 70-99 H POC Performing Location (christopher t code = 0243399763) 4 STROKE Lab Interpretation (test cod e = 26791-1) Abnormal [facility] Qfrusxu1582-82-17 06:18:56* Test Item Value Reference Range Interpretation Comme nts POC Glu (test code = 0361378130) 250 mg/dL 70-99 H POC Glu Comment 1 (test code = 2827250896) Notified RN/MD POC Performing Location (christopher t code = 3690694759) 4 STROKE Lab Interpretation (test cod e = 11019-2) Abnormal [facility] Wkmprei2997-44-50 00:14:09* Test Item Value Reference Range Interpretation Comme nts POC Glu (test code = 4208485226) 168 mg/dL 70-99 H POC Glu Comment 1 (test code = 7649335350) Notified RN/MD POC Performing Location (christopher t code = 6074354818) 4 STROKE Lab Interpretation (test cod e = 58285-3) Abnormal [facility] Lvsebli0640-90-63 22:38:56* Test Item Value Reference Range Interpretation Comme nts POC Glu (test code = 0917822590) 154 mg/dL 70-99 H POC Performing Location (christopher t code = 3888619954) 4 STROKE Lab Interpretation (test cod e = 71359-5) Abnormal [facility] 12 znoe4076-17-85 18:36:51* Test Item Value Reference Range Interpretation Comme nts Ventricular Rate (test code = 9140516603) BPM Atrial Rate (test code = 8377204219) BPM QRS Duration (test code = 2677630469) 88 ms QT/QTc (test code = 9387038682) 366 ms QTc Calculation (test code = 0315690906) 510 ms R-Ruston (test code = 5872775489) degrees T-Ruston (test code = 8854175874) degrees IMP (test code = IMP) PXN (test code = PXN) [facility]2025-01-19 18:34:21* Test Item Value Reference Range Interpretation Comme nts POC Glu (test code = 5029312584) 318 mg/dL 70-99 H POC Performing Location (christopher t code = 5739467424) 9 Stroke Lab Interpretation (test cod e = 36715-4) Abnormal [facility] Qdugmsw2317-19-53 13:02:52* Test Item Value Reference Range Interpretation Comme nts POC Glu (test code = 0529252384) 330 mg/dL 70-99 H POC Performing Location (christopher t code = 3747645141) 9 Stroke Lab Interpretation (test cod e = 01724-4) Abnormal [facility] Ubzehmj0231-71-11 05:16:04* Test Item Value Reference Range Interpretation Comme nts POC Glu (test code = 8440196419) 334 mg/dL 70-99 H POC Glu Comment 1 (test code = 3395973701) Notified RN/MD POC Performing Location (christopher t code = 3604810710) 4 STROKE Lab Interpretation (test cod e = 34130-5) Abnormal [facility] Hybbmtc8148-80-05 00:29:06* Test Item Value Reference Range Interpretation Comme nts POC Glu (test code = 5446219481) 289 mg/dL 70-99 H POC Glu Comment 1 (test code = 0937721963) Notified RN/MD POC Performing Location (christopher t code = 0244327053) J4E STROKE Lab Interpretation (test cod e = 14325-4) Abnormal [facility] Czgohff5321-24-43 21:39:05* Test Item Value Reference Range Interpretation Comme nts POC Glu (test code = 1891090682) 271 mg/dL 70-99 H POC Glu Comment 1 (test code = 8133447097) Notified RN/MD POC Performing Location (christopher t code = 4975565043) J4E STROKE Lab Interpretation (test cod e = 95881-3) Abnormal [facility] Wvcpzvj9171-98-53 18:21:06* Test Item Value Reference Range Interpretation Comme nts POC Glu (test code = 7268441204) 261 mg/dL 70-99 H POC Performing Location (christopher t code = 8776327763) J4E STROKE Lab Interpretation (test cod e = 32024-0) Abnormal [facility] Wemzzwu0382-07-35 14:01:08* Test Item Value Reference Range Interpretation Comme nts POC Glu (test code = 8013561628) 234 mg/dL 70-99 H POC Performing Location (christopher t code = 1230771918) J4E STROKE Lab Interpretation (test cod e = 40898-7) Abnormal [facility] Joqfgve9568-34-08 12:04:14* Test Item Value Reference Range Interpretation Comme nts POC Glu (test code = 6018515932) 224 mg/dL 70-99 H POC Performing Location (christopher t code = 1695102595) J4E STROKE Lab Interpretation (test cod e = 24687-9) Abnormal [facility] 12 xbhc4532-05-54 09:04:42* Test Item Value Reference Range Interpretation Comme nts Ventricular Rate (test code = 2149117593) BPM Atrial Rate (test code = 5900847326) BPM QRS Duration (test code = 0602694507) 92 ms QT/QTc (test code = 1372060035) 324 ms QTc Calculation (test code = 3400812163) 470 ms R-Ruston (test code = 3363141244) degrees T-Ruston (test code = 9563246627) degrees IMP (test code = IMP) PXN (test code = PXN) [facility] Aqqyuqi7414-23-04 08:08:50* Test Item Value Reference Range Interpretation Comme nts POC Glu (test code = 5726005424) 317 mg/dL 70-99 H POC Glu Comment 1 (test code = 4026595768) Notified RN/MD POC Performing Location (christopher t code = 2853275893) J7 NSICU Lab Interpretation (test cod e = 30773-0) Abnormal [facility] 12 zgaf3702-01-11 19:56:32* Test Item Value Reference Range Interpretation Comme nts Ventricular Rate (test code = 6655464625) BPM Atrial Rate (test code = 7051033130) BPM QRS Duration (test code = 2553107888) 86 ms QT/QTc (test code = 6782723458) 412 ms QTc Calculation (test code = 7778009485) 504 ms R-Ruston (test code = 4503122706) degrees T-Ruston (test code = 2104408749) degrees IMP (test code = IMP) PXN (test code = PXN) [facility] Eubmpfi8831-18-68 19:39:35* Test Item Value Reference Range Interpretation Comme nts POC Glu (test code = 6233309305) 263 mg/dL 70-99 H POC Glu Comment 1 (test code = 0721714719) Notified RN/MD POC Performing Location (christopher t code = 8938847076) J5 NEURO Lab Interpretation (test cod e = 34554-1) Abnormal [facility] Wslbzsv5321-82-29 17:16:39* Test Item Value Reference Range Interpretation Comme nts POC Glu (test code = 0877082796) 230 mg/dL 70-99 H POC Performing Location (christopher t code = 4778626164) J7 NSICU Lab Interpretation (test cod e = 13987-9) Abnormal [facility] Nrkrjuf4786-29-24 12:15:14* Test Item Value Reference Range Interpretation Comme nts POC Glu (test code = 0986367799) 198 mg/dL 70-99 H POC Performing Location (christopher t code = 7178517338) J7 NSICU Lab Interpretation (test cod e = 85910-7) Abnormal [facility] Gtrtkar8354-99-60 08:10:19* Test Item Value Reference Range Interpretation Comme nts POC Glu (test code = 2064794363) 290 mg/dL 70-99 H POC Glu Comment 1 (test code = 2860095491) Notified RN/MD POC Performing Location (christopher t code = 5312469261) J7 NSICU Lab Interpretation (test cod e = 13662-5) Abnormal [facility] Vvfckik0218-07-76 02:28:30* Test Item Value Reference Range Interpretation Comme nts POC Glu (test code = 4036753896) 219 mg/dL 70-99 H POC Performing Location (christopher t code = 2722634954) J5 NEURO Lab Interpretation (test cod e = 20217-5) Abnormal [facility] gipcuekh9814-05-01 18:11:07* Test Item Value Reference Range Interpretation Comme nts RVOT Vmean (test code = 0770416147) 0.32 m/s LVOT Vmax/AV Vmax (test code = 6505385551) 0.77 {ratio} Ao Root diam diastole (test code = 3552634093) 26 mm LVOT Vmean (test code = 2803206632) 0.4 m/s LV SV (A4C) (test code = 8279690031) 24.99 ml LVLs (A4C) (test code = 4650085878) 53.55 mm LVLd (A4C) (test code = 7216830775) 63.59 mm PV mn gwen (test code = 8223748665) 0.55 m/s LV EDV A4C (test code = 8561501693) 52.42 mL LA area A4C (test code = 4642548561) 23 cm2 LA area A2C (test code = 8169199058) 22.4 cm2 LV ESV A4C (test code = 3299925693) 27.43 mL TR pk grad (test code = 2862518396) mmHg TAPSE (test code = 9974070988) 11 mm RV FAC 2D (test code = 2467529566) LA ESV A2C (test code = 0682649644) 67.391712558263203 mL LA ESV A4C (test code = 8060724492) 67.488343533248930 mL RV ROMAIN (test code = 5007419110) 8.87 cm2 LV est EF (test code = 2204312374) 39 % MV E pk gwen (test code = 5713175316) 1.34 m/s PV mn grad (test code = 1777202515) mmHg AV pk grad (test code = 8127968011) mmHg LV stroke vol (test code = 8674666571) 28.6 ml RVOT VTI (test code = 6405643811) 9.8 cm RVOT pk gwen (test code = 0297387553) 0.46 m/s AV VTI (test code = 7703938679) 21.1 cm AV pk gwen (test code = 5839540837) 0.82 m/s LVOT VTI (test code = 0520675163) 12.6 cm LVOT pk gwen (test code = 3876904733) 0.63 m/s LVOT area (test code = 5492418898) 2.27 cm2 LVOT diam (test code = 7487041890) 17 mm PV pk grad (test code = 8939890217) mmHg LVOT pk grad (test code = 3298156009) mmHg AV mn grad (test code = 0067328057) mmHg RVOT mn grad (test code = 4618548868) mmHg RVOT pk grad (test code = 5763936077) mmHg TR pk gwen (test code = 5366708455) 3.16 m/s Est RA pressure (test code = 4832837731) mmHg AV area pk gwen (test code = 1628393441) 1.76 cm2 AV area cont VTI (test code = 7810162357) 1.36 cm2 LVOT mn grad (test code = 3817799763) mmHg RV KIP (test code = 4602344702) 12.7 cm2 RV-mota mid diam (test code = 5232592844) 19 cm RV-mota basal diam (test code = 2775329134) 26 cm RV-mota longitudinal diam (test code = 4678974786) 59 cm LV A4C EF (test code = 4924402797) 48 % RAP (test code = 5331140070) mmHg AV mn gwen (test code = 1928785546) 0.57 m/s LVPWd (test code = 3962654492) 11 mm LA size (test code = 9525773437) 43 mm LA vol BP (test code = 4298847722) 72.1 ml Fractional Shortening 2D (test code = 1849498578) 18 % LVIDs (test code = 6273481023) 32 mm IVSd (test code = 1726047499) 11 mm LVIDd (test code = 9709172978) 39 mm PV pk gwen (test code = 1791906552) 0.76 m/s PV VTI (test code = 0668245) 17.2 cm RVSP (test code = 6150063) mmHg LV ESV 2D (test code = 0790598) 40.96 mL LV EDV 2D (test code = 9942078) 66.91 mL IVSd 2D (test code = 7034713) 10.693374435296212 cm BSA (test code = 5447038471) 1.62 m2 LV stroke vol index (test code = 44264598) 17.65 ml/m2 LV SI (A4C) (test code = 5118395848) 15.42 ml/m2 LV LVIDd index (test code = 82238676) 24.22 mm/m2 LVIDs index (test code = 74734020) 19.75 mm/m2 LV ESV index A4C (test code = 2273440189) 16.93 ml/m2 LV EDV index A4C (test code = 4209466676) 32.35 ml/m2 LV ESV index 2D (test code = 4066521924) 25.27 ml/m2 LV EDV index 2D (test code = 9308454184) 41.29 ml/m2 LV RWT 2D (test code = 4020179708) LV mass 2D (test code = 8342896922) 138.74 g LV mass index 2D (test code = 9753494983) 85.61 g/m2 LA vol index (test code = 7450221506) 44.49 mL/m2 LA diam systole Index (test code = 0623811460) 26.53 mm/m2 LA Vol I BSA (test code = 8421536936) 41.77 ml/m2 LA Vol I (A4C) BSA (test code = 1360153643) 45.66 ml/m2 RV ROMAIN index (test code = 1725681859) 5.47 cm2/m2 RV KIP index (test code = 9060858427) 7.84 cm2/m2 AV area index (test code = 6945739631) 0.84 cm2/m2 LV stroke vol index (test code = 6909715389) 17.65 mL/m2 sPAP (test code = 8445234764) mmHg AVAI (Vmax) BSA (test code = 2829407402) 1.08 cm2/m2 IVC size (test code = 1930916602) 20 mm AV gwen ratio (test code = 7659978231) RA vol (test code = 6213013045) 25.1 mL/m2 LV mass size 1 (test code = 2313028700) 138.7 cm IVC prox (test code = 6143142812) 19.800926555838094 cm LV biplane EF (test code = 1298972498) 41.6 % LV A2C EF (test code = 9327134692) 35 % LV SI (BP) (test code = 0397393621) 17.66 ml/m2 LV SI (A2C) (test code = 8603600826) 14.18 ml/m2 LV SV (BP) (test code = 7458309249) 28.62 ml LV SI (A2C) (test code = 4248790680) 22.98 ml LV ESV BP (test code = 7079848181) 40.23 mL LV ESV index BP (test code = 7658188633) 24.82 mL/m2 LV ESV A2C (test code = 0298379380) 43.28 mL LV ESV index A2C (test code = 1151773608) 26.7 ml/m2 LV EDV BP (test code = 1173712124) 68.85 mL LV EDV index BP (test code = 4682141036) 42.49 mL/m2 LV EDV A2C (test code = 6358239364) 66.26 mL LV EDV index A2C (test code = 5193468158) LVLd (A2C) (test code = 4601926935) 64.41 mm LVLs (A2C) (test code = 8702730132) 58.13 mm LV GLS (test code = 4969638783) -10.7 % RV GLS (test code = 8393633533) -10.760399708050891 % MV mn grad (test code = 9902082591) mmHg MV pk grad (test code = 5234155955) mmHg MV mn gwen (test code = 6627078342) 0.111257334498057 m/s MV area cont eq (test code = 1979572170) 1.12 cm2 MV VTI (test code = 8781621757) 25.5 cm MV max gwen (test code = 4261337865) 1.311592108113908 cm/s GLS triplane (3P) A4C (test code = 9059918726) -10.44286513650097 % GLS triplane (3P) A3C (test code = 8654506269) -8.451987353725795 % GLS triplane (3P) A2C (test code = 3307205478) -12.77727766846114 % MV e' lateral gwen (test code = 5111206595) 6.46 cm/s MV e' septal gwen (test code = 7617461) 5.49 cm/s MV E/e' lateral (test code = 2547157) MV E/e' septal (test code = 5073606330) MV avg E/e' (test code = 5833168232) Radiology Study observation (narrative) (test code = 18439-4) CASEY (test code = CASEY) [facility] [id number] 17:39:49* Test Item Value Reference Range Interpretation Comme nts POC Glu (test code = 0921535739) 173 mg/dL 70-99 H POC Performing Location (christopher t code = 3315541688) J7 NSICU Lab Interpretation (test cod e = 46647-3) Abnormal [facility] [id number] 08:05:09* Test Item Value Reference Range Interpretation Comme [facility] P[facility] Glu (test code = 1546305180) 232 mg/dL 70-99 H POC Performing Location (christopher t code = 1516903397) J7 NSICU Lab Interpretation (test cod e = 31054-0) Abnormal [facility] Arterial Blood Gas and Basic [id number] 01:30:57* Test Item Value Reference Range Interpretation Comme nts POC A Temp (test code = 7762674547) DegC POC A Source (test code = 4844004658) ART POC A pH (test code = 2744-1) 7.35-7.45 POC A PCO2 (test code = 2019-8) See_Comment [Automated messa ge] The system which generated this result transmitted reference range: 35 - 45 mmHg. The reference range was not used to interpret this result as normal/abnormal. POC A PO2 (test code = 2703-7) See_Comment [Automated messa ge] The system which generated this result transmitted reference range: 80 - 100 mmHg. The reference range was not used to interpret this result as normal/abnormal. POC A HCO3 (test code = 1960-4) See_Comment [Automated messa ge] The system which generated this result transmitted reference range: 22 - 26 mMol/L. The reference range was not used to interpret this result as normal/abnormal. POC A BE (test code = 1925-7) See_Comment L [Automated messa ge] The system which generated this result transmitted reference range: -2 - 2 mMol/L. The reference range was not used to interpret this result as normal/abnormal. POC A O2 Sat (calc) (test code = 2708-6) 99.9 % 95-100 POC A Hgb Tot (test code = 60300-7) 12.7 g/dL 11.2-15.7 POC A Hct (calc) (test code = 62998-0) 38 % 34.1-44.9 POC A Na (test code = 75074-4) See_Comment [Automated messa ge] The system which generated this result transmitted reference range: 135 - 145 mEq/L. The reference range was not used to interpret this result as normal/abnormal. POC A K (test code = 4308743) See_Comment [Automated messa ge] The system which generated this result transmitted reference range: 3.5 - 5.1 mEq/L. The reference range was not used to interpret this result as normal/abnormal. POC Chloride (test code = 9183486) See_Comment [Automated messa ge] The system which generated this result transmitted reference range: 95 - 109 mEq/L. The reference range was not used to interpret this result as normal/abnormal. POC A Glu (test code = 2339-0) 214 mg/dL 70-99 H POC A LA (test code = 224) See_Comment [Automated messa ge] The system which generated this result transmitted reference range: 0.5 - 2.2 mMol/L. The reference range was not used to interpret this result as normal/abnormal. POC A Ca Ion (test code = 70501-5) See_Comment [Automated Vertroa ge] The system which generated this result transmitted reference range: 1.05 - 1.25 mMol/L. The reference range was not used to interpret this result as normal/abnormal. POC A Ca Ion (7.4) (test code = 9384221885) 1.12 mmol/L 1.05-1.25 POC A Mode #1 (test code = 8967677121) A/C POC A Mech R (bpm) (test code = 8802181731) bpm POC A Mech VT (test code = 3794058975) 400 mL POC A PEEP (test code = 7473377816) cmH20 POC A %FIO2 (test code = 0040776130) 30 % POC Performing Location (test code = 1128386866) [facility] Lab Interpretation (test code = 61906-8) Abnormal [facility] + FREE T4 [id number] 00:00:00* Test Item Value Reference Range Interpretation Comme nts FREE T4 (THYROXINE) (test code = 3024-7) 1.56 NG/DL See_Comment [Automated message] The system which generated this result transmitted reference range: 0.80-1.90 NG/DL. The reference range was not used to interpret this result as normal/abnormal. TSH, THIRD GENERATION (test code = 43596-0) 3.760 UIU/ML See_Comment [Automated Mobly] The system which generated this result transmitted reference range: 0.400-4.100 UIU/ML. The reference range was not used to interpret this result as normal/abnormal. NO URINE PROVIDED:2024-03-19 00:00:00* Test Item Value Reference Range Interpretation Comme nts NUCLEATED RBCS (test code = 92780-3) 0.0 /100 WBC'S See_Comment [Automated message] The system which generated this result transmitted reference range: 0.0 /100 WBC'S. The reference range was not used to interpret this result as normal/abnormal. ABSOLUTE EOSINOPHILS (test code = 91136-8) 0.29 K/UL See_Comment [Automated message] The system which generated this result transmitted reference range: 0.00-0.50 K/UL. The reference range was not used to interpret this result as normal/abnormal. ABSOLUTE LYMPHOCYTES (test code = 17863-1) 2.08 K/UL See_Comment [Automated message] The system which generated this result transmitted reference range: 1.00-4.00 K/UL. The reference range was not used to interpret this result as normal/abnormal. ABSOLUTE MONOCYTES (test code = 01021-1) 0.55 K/UL See_Comment [Automated message] The system which generated this result transmitted reference range: 0.20-1.00 K/UL. The reference range was not used to interpret this result as normal/abnormal. ABSOLUTE NEUTROPHILS (test code = 59651-6) 4.85 K/UL See_Comment [Automated message] The system which generated this result transmitted reference range: 1.50-7.50 K/UL. The reference range was not used to interpret this result as normal/abnormal. BASOPHILS (test code = 82416-3) 0.8 % EOSINOPHILS (test code = 60450-4) 3.7 % HEMATOCRIT (test code = 16521-5) 36.3 % See_Comment [Automated messa ge] The [...] result as normal/abnormal. LYMPHOCYTES (test code = 49242-9) 26.5 % MCH (test code = 20803-6) 31.6 PG See_Comment [Automated messa ge] The system which generated this result transmitted reference range: 25.0-33.0 PG. The reference range was not used to interpret this result as normal/abnormal. MCHC (test code = 47826-3) 33.3 G/DL See_Comment [Automated messa ge] The system which generated this result transmitted reference range: 31.0-36.0 G/DL. The reference range was not used to interpret this result as normal/abnormal. MCV (test code = 99027-6) 94.8 fL See_Comment [Automated messa ge] The system which generated this result transmitted reference range: 80.0-99.0 fL. The reference range was not used to interpret this result as normal/abnormal. MONOCYTES (test code = 66160-5) 7.0 % NEUTROPHILS (test code = 63420-2) 61.7 % PLATELET COUNT (test code = 79430-4) 353 K/UL See_Comment [Automated messa ge] The system which generated this result transmitted reference range: 130-400 K/UL. The reference range was not used to interpret this result as normal/abnormal. RBC (test code = 68534-9) 3.83 M/UL See_Comment [Automated messa ge] The system which generated this result transmitted reference range: 3.80-5.40 M/UL. The reference range was not used to interpret this result as normal/abnormal. RDW (test code = 55732-3) 12.8 % See_Comment [Automated messa ge] The system which generated this result transmitted reference range: 11.5-15.0 %. The reference range was not used to interpret this result as normal/abnormal. WBC (test code = 87975-8) 7.9 K/UL See_Comment [Automated messa ge] The [...] normal/abnormal. CALC LDL CHOL (test code = 30861-1) 122 MG/DL See_Comment H [Automated messa ge] [...] normal/abnormal. RISK RATIO LDL/HDL (test code = 85548-5) 2.60 RATIO See_Comment [Automated message] The system [...] normal/abnormal. TSH, THIRD GENERATION (test code = 46830-8) 13.900 UIU/ML See_Comment H [Automated message] The system which generated this result transmitted reference range: 0.400-4.100 UIU/ML. The reference range was not used to interpret this result as normal/abnormal. ALBUMIN (test code = 1751-7) 4.6 G/DL See_Comment [Automated messa ge] The system [...] result as normal/abnormal. CALCIUM (test code = 41384-3) 10.5 MG/DL See_Comment [Automated messa ge] The [...] as normal/abnormal. CALC GLOBULIN (test code = 70174-8) 2.7 G/DL See_Comment [Automated messa ge] The system which generated this result transmitted reference range: 1.9-3.7 G/DL. The reference range was not used to interpret this result as normal/abnormal. CARBON DIOXIDE (test code = 1962-8) 24 MEQ/L See_Comment [Automated messa ge] The system which generated this result transmitted reference range: 19-31 MEQ/L. The reference range was not used to interpret this result as normal/abnormal. CHLORIDE (test code = 5-0) 99 MEQ/L See_Comment [Automated messa ge] The [...] normal/abnormal. eGFR (2020 CKD-EPI) (test code = 94700-3) 39 ML/MIN/1.73 See_Comment L [Automated message] The [...] interpret this result as normal/abnormal. CBC W/AUTO [id number] 00:00:00* Test Item Value Reference Range Interpretation Comme nts NUCLEATED RBCS (test code = 22796-4) 0.0 /100 WBC'S See_Comment [Automated messa ge] The system which generated this result transmitted reference range: 0.0 /100 WBC'S. The reference range was not used to interpret this result as normal/abnormal. ABSOLUTE EOSINOPHILS (test code = 95448-6) 0.19 K/UL See_Comment [Automated messa ge] The system which generated this result transmitted reference range: 0.00-0.50 K/UL. The reference range was not used to interpret this result as normal/abnormal. ABSOLUTE LYMPHOCYTES (test code = 70038-9) 2.32 K/UL See_Comment [Automated messa ge] The system which generated this result transmitted reference range: 1.00-4.00 K/UL. The reference range was not used to interpret this result as normal/abnormal. ABSOLUTE MONOCYTES (test code = 59745-7) 0.51 K/UL See_Comment [Automated messa ge] The system which generated this result transmitted reference range: 0.20-1.00 K/UL. The reference range was not used to interpret this result as normal/abnormal. ABSOLUTE NEUTROPHILS (test code = 31516-3) 3.71 K/UL See_Comment [Automated messa ge] The system which generated this result transmitted reference range: 1.50-7.50 K/UL. The reference range was not used to interpret this result as normal/abnormal. BASOPHILS (test code = 71234-3) 0.7 % EOSINOPHILS (test code = 47580-6) 2.8 % HEMATOCRIT (test code = 07678-1) 35.5 % See_Comment [Automated messa ge] The [...] result as normal/abnormal. LYMPHOCYTES (test code = 18514-1) 34.1 % MCH (test code = 57915-1) 32.3 PG See_Comment [Automated messa ge] The system which generated this result transmitted reference range: 25.0-33.0 PG. The reference range was not used to interpret this result as normal/abnormal. MCHC (test code = 08407-1) 34.6 G/DL See_Comment [Automated messa ge] The system which generated this result transmitted reference range: 31.0-36.0 G/DL. The reference range was not used to interpret this result as normal/abnormal. MCV (test code = 92382-5) 93.2 fL See_Comment [Automated messa ge] The system which generated this result transmitted reference range: 80.0-99.0 fL. The reference range was not used to interpret this result as normal/abnormal. MONOCYTES (test code = 96586-9) 7.5 % NEUTROPHILS (test code = 23576-4) 54.6 % PLATELET COUNT (test code = 84391-5) 299 K/UL See_Comment [Automated messa ge] The system which generated this result transmitted reference range: 130-400 K/UL. The reference range was not used to interpret this result as normal/abnormal. RBC (test code = 31227-8) 3.81 M/UL See_Comment [Automated messa ge] The system which generated this result transmitted reference range: 3.80-5.40 M/UL. The reference range was not used to interpret this result as normal/abnormal. RDW (test code = 23230-4) 12.3 % See_Comment [Automated messa ge] The system which generated this result transmitted reference range: 11.5-15.0 %. The reference range was not used to interpret this result as normal/abnormal. WBC (test code = 16009-5) 6.8 K/UL See_Comment [Automated messa ge] The system which generated this result transmitted reference range: 3.5-11.0 K/UL. The reference range was not used to interpret this result as normal/abnormal. CBC W/AUTO [id number] 00:00:00* Test Item Value Reference Range Interpretation Comme nts NUCLEATED RBCS (test code = 99002-2) 0.0 /100 WBC'S See_Comment [Automated messa ge] The system which generated this result transmitted reference range: 0.0 /100 WBC'S. The reference range was not used to interpret this result as normal/abnormal. ABSOLUTE EOSINOPHILS (test code = 28308-0) 0.15 K/UL See_Comment [Automated messa ge] The system which generated this result transmitted reference range: 0.00-0.50 K/UL. The reference range was not used to interpret this result as normal/abnormal. ABSOLUTE LYMPHOCYTES (test code = 09603-6) 1.93 K/UL See_Comment [Automated messa ge] The system which generated this result transmitted reference range: 1.00-4.00 K/UL. The reference range was not used to interpret this result as normal/abnormal. ABSOLUTE MONOCYTES (test code = 57860-3) 0.62 K/UL See_Comment [Automated messa ge] The system which generated this result transmitted reference range: 0.20-1.00 K/UL. The reference range was not used to interpret this result as normal/abnormal. ABSOLUTE NEUTROPHILS (test code = 27052-5) 4.24 K/UL See_Comment [Automated messa ge] The system which generated this result transmitted reference range: 1.50-7.50 K/UL. The reference range was not used to interpret this result as normal/abnormal. BASOPHILS (test code = 12886-9) 0.6 % EOSINOPHILS (test code = 20483-6) 2.1 % HEMATOCRIT (test code = 74108-8) 33.5 % See_Comment L [Automated messa ge] [...] result as normal/abnormal. LYMPHOCYTES (test code = 41934-8) 27.6 % MCH (test code = 36297-3) 31.3 PG See_Comment [Automated messa ge] The system which generated this result transmitted reference range: 25.0-33.0 PG. The reference range was not used to interpret this result as normal/abnormal. MCHC (test code = 17420-7) 34.3 G/DL See_Comment [Automated messa ge] The system which generated this result transmitted reference range: 31.0-36.0 G/DL. The reference range was not used to interpret this result as normal/abnormal. MCV (test code = 78764-8) 91.3 fL See_Comment [Automated messa ge] The system which generated this result transmitted reference range: 80.0-99.0 fL. The reference range was not used to interpret this result as normal/abnormal. MONOCYTES (test code = 50162-2) 8.9 % NEUTROPHILS (test code = 27305-0) 60.5 % PLATELET COUNT (test code = 96551-4) 329 K/UL See_Comment [Automated messa ge] The system which generated this result transmitted reference range: 130-400 K/UL. The reference range was not used to interpret this result as normal/abnormal. RBC (test code = 70839-6) 3.67 M/UL See_Comment L [Automated messa ge] The system which generated this result transmitted reference range: 3.80-5.40 M/UL. The reference range was not used to interpret this result as normal/abnormal. RDW (test code = 40038-5) 12.0 % See_Comment [Automated messa ge] The system which generated this result transmitted reference range: 11.5-15.0 %. The reference range was not used to interpret this result as normal/abnormal. WBC (test code = 23311-2) 7.0 K/UL See_Comment [Automated messa ge] The system which generated this result transmitted reference range: 3.5-11.0 K/UL. The reference range was not used to interpret this result as normal/abnormal. Consult Notes Date/Time Note Provider Source 2024-06-27 12:30:54 Final Discharge Disposition: Usp Facility Usp Facility (SNF) Acceptance Received Date and Time: 06-27-2024 Received From: Ira BARKER Name: [facility] Address: [address] [place] [address] [place] [address] Room Number: A Nursing Unit for Report: [phone] Accepting MD: Ori Gutierrez Accepting Teaching Young: Ira BRAGA sent to facility: Yes Medication Reconciliation sent to facility: Yes Ambulance Arrangements Please call [facility] / [phone] for delays or any transportation issue. Pickup Date: 06-27-24 Pickup Time: 1430 Notification SW notified RN and pts son, Rashid @[phone]. Shavon Dodd LMSW Weekend/Afterhours SW [id number] [facility] 2024-06-23 09:57:45 Images from the original note were not included. ELECTROPHYSIOLOGY CONSULTATION Patient Name: Isabel Henry Date of consult: 06/23/2024 Attending Physician: Venkatesh Larson MD Consulted [employer] Cutter Hand: Dr. Baker Chief Complaint: Acute CVA Reason for electrophysiology consultation: Afib RVR History of present illness: This is a 78 year old female with a past medical history of HTN, HLD, DM type 2 and hypothyroidism who was admitted 06/11 for acute CVA and new onset atrial fibrillation. Electrophysiology has been consulted for management of Afib RVR. Pt is altered and not participating in exam. HPI obtained from thorough chart review. The Pt was found to be in Afib on admission. No prior reports of Afib and no prior cardiac evaluation noted in Care Everywhere. Pt has had variable rate control that sustained in the 120-140s overnight. Pt was treated with IV metoprolol and her beta sally was adjusted from carvedilol to metoprolol tartrate this morning. Unable to determine if the Pt is having symptoms, she is currently in no distress at time of evaluation. Past medical history: HTN, HLD, DM type 2, hypothyroid, CVA, and Afib Past surgical history: Past Surgical History: Procedure Laterality Date ESOPHAGOGASTRODUODENOSCOPY 06/18/2024 EGD 06/18/2024 Mckenzie Ely MD [facility] Family history: Unable to obtained. Social history: Social History Socioeconomic History Marital status: Spouse name: Not on file Number of children: Not on file Years of education: Not on file Highest education level: Not on file Occupational History Not on file Tobacco Use Smoking status: Never Passive exposure: Never Smokeless tobacco: Never Vaping Use Vaping status: Never Used Substance and Sexual Activity Alcohol use: Not on file Drug use: Never Sexual activity: Not on file Other Topics Concern Not on file Social History Narrative Not on file Social Drivers of Health Financial Resource Strain: Not on file Food Insecurity: No Food Insecurity (06/11/2024) Hunger Vital Sign Worried About Running Out of Food in the Last Year: Never true Ran Out of Food in the Last Year: Never true Transportation Needs: No Transportation Needs (06/11/2024) PRAPARE - Transportation Lack of Transportation (Medical): No Lack of Transportation (Non-Medical): No Physical Activity: Not on file Stress: Not on file Social Connections: Unknown (07/18/2023) Received from [facility] Social Connections In the past 3 months, do you feel that you lack companionship or social support?: Not on file Intimate Partner Violence: Not At Risk (06/11/2024) Humiliation, Afraid, Rape, and Kick questionnaire Fear of Current or Ex-Partner: No Emotionally Abused: No Physically Abused: No Sexually Abused: No Housing Stability: Low Risk (06/11/2024) Housing Stability Vital Sign Unable to Pay for Housing in the Last Year: No Number of Times Moved in the Last Year: 0 Homeless in the Last Year: No Allergies: Allergies Allergen Reactions Depo-Provera [Medroxyprogesterone Acetate] Unknown Home medications: Home cardiac medications including the dose, frequency along with new cardiac medications reviewed and discussed with patient in detail. Reiterated the indications and side effects of these medications and patient verbalized understanding. All questions answered. Labs: Pertinent Labs : Lab Results Component Value Date WBC 12.53 (H) 06/23/2024 Hgb 11.3 06/23/2024 Hct 34.7 06/23/2024 Plt Count 600 (H) 06/23/2024 Lab Results Component Value Date Sodium Lvl 143 06/23/2024 Potassium Lvl 4.9 (H) 06/23/2024 Chloride Lvl 108 (H) 06/23/2024 CO2 Lvl 23.8 06/23/2024 BUN 52 (H) 06/23/2024 Creatinine Lvl 1.31 (H) 06/23/2024 Glucose Lvl 366 (H) 06/23/2024 POC Glu 496 (HH) 06/23/2024 Lab Results Component Value Date Calcium Lvl 9.1 06/23/2024 Magnesium 2.06 06/23/2024 Phosphorus Lvl 4.6 06/23/2024 Imaging: Echo 06/11: Left Ventricle: Left ventricle is smaller than normal. Mildly increased wall thickness in the left ventricle. Findings consistent with concentric remodeling. Mildly reduced systolic function with an estimated EF of 40 - 45%. Global longitudinal strain is reduced. LV GLS is -10.7%. Abnormal diastolic function of the left ventricle. Right Ventricle: Right ventricle size is normal. Moderately reduced systolic function in the right ventricle. Left Atrium: Left atrium is moderately dilated. Right Atrium: Right atrium size is normal. Aortic Valve: Aortic valve is trileaflet. Mildly thickened leaflets in the aortic valve. Leaflet motion is normal. No aortic regurgitation present. No aortic stenosis present. Tricuspid Valve: Tricuspid valve is structurally normal. Mild tricuspid regurgitation present. RVSP is 48.00 mmHg. Mitral Valve: Mildly calcified leaflets in the mitral valve. Mild mitral annular calcification. Mild mitral regurgitation present. Pulmonic Valve: Pulmonic valve is structurally normal. Aorta: Normal sized aortic root and ascending aorta present. IVC/SVC: IVC diameter is less than or equal to 21 mm and decreases less than 50% during inspiration; therefore the estimated right atrial pressure is intermediate (~8 mmHg). Hepatic veins shows systolic flow reversal suggestive of restrictive filling. Pericardium: No pericardial effusion present. EKG: Encounter Date: 06/11/24 ECG 12 lead Result Value Ventricular Rate 126 Atrial Rate 166 QRS Duration 82 QT/QTc 336 QTc Calculation 486 R-Ruston 17 T-Ruston 55 Impression ATRIAL FIBRILLATION WITH A RAPID VENTRICULAR RESPONSE ABNORMAL ECG WHEN COMPARED WITH ECG OF 12-JUN-2024 23:20, NO SIGNIFICANT CHANGE WAS FOUND Review of systems: As noted in HPI. INTAKE/OUTPUT: I/O last 3 completed shifts: In: 150 (2.5 mL/kg) [NG/GT:150] Out: 2 (0 mL/kg) [Urine:1 (0 mL/kg/hr); Stool:1] Weight: 61 kg No intake/output data recorded. Physical Exam: Vital Signs: 06/23/2024 4:30 AM 06/23/2024 4:53 AM 06/23/2024 5:00 AM 06/23/2024 6:00 AM 06/23/2024 7:50 AM 06/23/2024 9:25 AM 06/23/2024 9:26 AM Vitals Systolic 157 155 115 115 Diastolic 117 67 68 68 Heart Rate 119 134 121 145 Temp 37.6 ?C (99.6 ?F) 38.5 ?C (101.3 ?F) Resp 22 23 24 20 General: Chronically ill appearing, no apparent distress. HEENT: Normocephalic, atraumatic. Oropharynx clear, moist mucus membranes. Neck: Supple, No JVD. Cardiovascular: Irregularly irregular rate and rhythm, S1, S2, no S3 or S4, no murmurs. Respiratory: CTAB, no wheezing, no rales or rhonchi. On room air. Abdomen: Soft, non-tender, no distended, no guarding or rebound tenderness. Extremities: No lower extremity edema, BLE warm to touch, peripheral pulses are palpable. Neurologic: Oriented to self, dysarthria, L sided weakness. Please see Neurology note for detailed assessment. Skin: No rashes or lesion noted. Assessment and Plan: This is a 78 year old female with a past medical history of HTN, HLD, DM type 2 and hypothyroidism who was admitted 06/11 for acute CVA and new onset atrial fibrillation. Electrophysiology has been consulted for management of Afib RVR. Afib RVR - new onset since admission - 24 hour tele reviewed, HR poorly controlled 110-140s - Echo 06/11 reviewed, EF 40-45%, LA dilated, and no significant valvular issues - TSH 1.041 - carvedilol dc'd - recommend increasing metoprolol tartrate to 50mg Q6 hrs - continue Eliquis 2. 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 HTN - SBP trends 140-200 - on metoprolol tartrate, amlodipine, and hydralazine - BP goals and management per Stroke Team 4. DM type 2 - hyperglycemic - Management per Endocrinology Plan of care discussed with the Pt and Stroke Team. Details of Pt's case was discussed with Dr. Baker, who agrees with the above assessment and plan. Further recommendations to follow per her discretion. Signature: Medina Schmitt NP Cardiology [facility] Service Contact: Manning tidy Chat Cosigned by Sharon Baker MD at 06/26/2024 5:12 PM MODEL ARTISTS' L ARTISTS' L ARTISTS' Associated attestation - Sharon Baker MD - 06/26/2024 5:12 PM MODEL ARTISTS' Images from the original note were not included. CARDIAC ELECTROPHYSIOLOGY ATTESTATION I have examined the patient with the nurse practitioner and agree with the note with the exceptions as noted. PROBLEM LIST - Atrial fibrillation with RVR - Stroke: Likely embolic in origin - Hypertension - DM RECOMMENDATIONS Rate control for now. Continue apixaban. Monitor BP Rest per primary team. Thank you for involving me in the care of this patient. Sharon Baker MD Cardiac Electrophysiology Contact - [facility] Nurse Practitioner Syed Bean 2024-06-22 09:19:10 Associated Order(s): IP CONSULT TO ENDOCRINOLOGY Endocrinology Initial Consult Note Assessment: The patient is a 78 y.o. female w PMH of HTN, DM2, HLD, afib, and hypothyroidism who was found to have an ischemic infarct of the R MCA territory at an OSH and presented as a transfer for possible thrombectomy. OOW for TNK at OSH. Also was comatose on arrival with concern for subclinical seizures initially. Extubated 06/11 and PEG tube placed 06/18. Endocrinology consulted for glycemic control. Problem list: #Type 2 Diabetes Mellitus - Home medications: Glimepiride 2 mg every day, Metformin 500 mg BID - A1C 7.51 on 06/11/24 - Currently on NPH 17 units q8h + MD BRYANT - BGs have been in the high 200s to mid 300s - Yesterday required an additional 45 units of lispro - Today switched to bolus tube feeds fibersource 375ml 4x daily. (10AM, 1PM, 5PM, 9PM) #Hypothyroidism - TSH 1.041 on arrival on 06/11/24 - In care everywhere, labs from 07/16/2023: TSH 8.710, free T4 1.04. At that time was taking levothyroxine 125 mcg daily - Currently on levothyroxine 100 mcg daily this admission Recommendations: - Stop NPH - Start lantus 20 units daily starting tonight - Start lispro 12 units pre-meal (4 times a day) - Continue MD BRYANT - Please make sure tube feeds are timed to be at least 4 hours apart - Please make sure MD BRYANT is timed to match the tube feed timings Plan was discussed with Dr. Leonardo. Thank you for the opportunity to participate in the care of this patient. We will continue to follow. Please page with any questions or concerns. Dea Eubanks MD Internal Medicine | PGY-1 [facility] | [facility] [employer] 06/22/2024 Date of Consult: 06/22/2024 Requesting Physician: Michelle Alves Jr., MD Consulting Physician: Dr. Cochran Reason for Consult: glycemic control History of Present Illness: The patient is a 78 y.o. female w PMH of HTN, DM2, HLD, afib, and hypothyroidism who was found to have an ischemic infarct of the R MCA territory at an OSH and presented as a transfer for possible thrombectomy. OOW for TNK at OSH. Also was comatose on arrival with concern for subclinical seizures initially. Extubated 06/11 and PEG tube placed 06/18. She is unsure about her home diabetic regimen or her compliance with the listed home medications. Unsure when she was diagnosed with DM but it is listed in her medical history dating back to 2020. Home medications: Glimepiride 2 mg every day, Metformin 500 mg BID. A1C 7.51 on 06/11/24. She reports no prior history of thyroid disease before this admission, but per chart review was on levothyroxine 125 mcg daily in Jun 2023. History: Medical: History reviewed. No pertinent past medical history. Surgical: Past Surgical History: Procedure Laterality Date ESOPHAGOGASTRODUODENOSCOPY 06/18/2024 EGD 06/18/2024 Mckenzie Ely MD [facility] Social: Social History Tobacco Use Smoking status: Never Passive exposure: Never Smokeless tobacco: Never Substance Use Topics Alcohol use: Not on file Family: No family history on file. Prior to admission medications No current outpatient medications Allergies Allergies Allergen Reactions Depo-Provera [Medroxyprogesterone Acetate] Unknown Review of Systems: Gen: No fever, chills, nightsweats, or fatigue. Skin: No rashes, sores, itching, or bruising. HEENT: No trauma, headache, or visual changes. No hearing loss, tinnitus, or vertigo. Resp: No wheezing, shortness or breath, cough, or hemoptysis. CV: No tachycardia, dyspnea on exertion, or orthopnea. No leg edema, or claudication GI: No nausea, vomiting, or abdominal pain. : No dysuria, hematuria, or incontinence. Msk: No myalgias or arthralgias. Neuro: No syncope, seizures, headaches, changes in sensation, or weakness. Heme: No easy bruising, bleeding, or lymphadenopathy. Endo: No heat or cold intolerance, hair loss, or weight changes. Psych: Not depressed or elevated mood, no anxiety. Physical Exam: Patient Vitals for the past 24 hrs: BP Temp Temp src Pulse Resp SpO2 06/22/24 0847 -- -- Axillary -- -- -- 06/22/24 0847 -- 36.7 ?C (98.1 ?F) -- -- -- -- 06/22/24 0600 144/67 -- -- 93 21 99 % 06/22/24 0500 (!) 144/104 -- -- (!) 104 17 99 % 06/22/24408 -- -- Oral -- -- -- 06/22/24408 -- 36.8 ?C (98.3 ?F) -- -- -- -- 06/22/24 0400 (!) 173/74 -- -- (!) 102 19 100 % 06/22/24 0300 (!) 130/58 -- -- (!) 102 19 99 % 06/22/24 0200 157/70 -- -- (!) 102 19 100 % 06/22/24 0100 158/72 -- -- (!) 108 20 99 % 06/22/24 0016 -- -- Oral -- -- -- 06/22/24 0015 -- 36.8 ?C (98.3 ?F) -- -- -- -- 06/22/24 0000 156/66 -- -- (!) 107 20 97 % 06/21/24 2300 (!) 142/98 -- -- (!) 127 (!) 23 97 % 06/21/24 2200 148/66 -- -- (!) 118 20 96 % 06/21/24 2100 148/64 -- -- (!) 127 12 97 % 06/21/242016 (!) 132/59 -- -- (!) 106 20 -- 06/21/242014 (!) 132/59 -- -- 97 -- -- 06/21/241999 (!) 166/79 -- -- (!) 107 18 95 % 06/21/241946 -- -- Axillary -- -- -- 06/21/241946 -- 37.1 ?C (98.7 ?F) -- -- -- -- 06/21/24 1800 152/69 -- -- (!) 103 (!) 25 97 % 06/21/24 1700 128/62 37.2 ?C (99 ?F) Axillary (!) 105 (!) 23 95 % 06/21/24 1600 156/74 -- -- (!) 115 (!) 24 96 % 06/21/24 1500 (!) 162/70 -- -- (!) 120 (!) 24 96 % 01/26/25 1300 147/62 -- -- (!) 106 (!) 23 95 % 06/21/24 1123 -- 36.8 ?C (98.2 ?F) Axillary -- -- -- 06/21/24 1100 139/63 -- -- 96 (!) 23 97 % Physical Exam Constitutional: The patient is not in acute distress. HENT: Normocephalic and atraumatic. Eyes: No scleral icterus, Extraocular movements intact , Conjunctivae normal, Pupils are equal, round, and reactive to light. Cardiovascular: Normal rate and regular rhythm with no added sounds Pulmonary: Pulmonary effort is normal. No respiratory distress. Normal breath sounds. No wheezing. Abdominal:Abdomen is soft., bowel sounds are normal. no distension. no abdominal tenderness. Skin:Skin is warm. Neurological: Alert and oriented, left sided facial droop Data: Pertinent Labs : Lab Results Component Value Date WBC 14.31 (H) 06/22/2024 Hgb 10.4 (L) 06/22/2024 Hct 32.4 (L) 06/22/2024 Plt Count 493 (H) 06/22/2024 Lab Results Component Value Date Sodium Lvl 142 06/22/2024 Potassium Lvl 5.1 (H) 06/22/2024 Chloride Lvl 110 (H) 06/22/2024 CO2 Lvl 20.6 06/22/2024 BUN 46 (H) 06/22/2024 Creatinine Lvl 1.23 (H) 06/22/2024 Glucose Lvl 286 (H) 06/22/2024 POC Glu 287 (H) 06/22/2024 No results found for: "HGBA1C" No results found for: "TSH" Radiology Review: @[email or web address]@ Cosigned by Nikkie Cochran MD at 06/22/2024 8:40 PM MODEL ARTISTS' L ARTISTS' L ARTISTS' Associated attestation - Nikkie Cochran MD - 06/22/2024 8:40 PM MODEL ARTISTS' I have personally interviewed and examined patient with resident, Dr. Eubanks. I have reviewed the evaluation and agree with issues, findings, and plan of care as documented in today's note. Ms. Henry is a 78-year-old woman with T2DM. Switched from continuous TEN to bolus TEN today. Stop NPH. Start lantus 20 units daily. Start lispro 12 units 4 times daily with bolus TEN. Recommend lispro Med ICF (2:50 for BG >150) with bolus TEN. Please make sure TEN/lispro is given at least 4 hours apart. Plan discussed with primary team. Nikkie Cochran MD [facility] 2024-06-18 12:10:18 NUTRITION ASSESSMENT - ADULT Unit: [address] [place] [address] Encounter: Follow Up - EN Findings Nutrition Diagnosis: Nutrition Diagnosis: Inadequate oral intake related to dysphagia as evidenced by NPO status and requiring enteral nutrition for nutrient. EVALUATION : No Change * Interventions and Recommendation: Fibersource hn @ 375 ml (1.5 cans) qid; fwf @ 60 ml before and after feeds (provides 1800 kcal, 81 g pro). NUTRITION RISK: Moderate, in 5-7 days Next Date for Nutrition Services Follow Up: 07/02/24 Communication : Primary team Current Nutrition: Dietary Orders (From admission, onward) Start Ordered 06/26/24 0001 NPO Diet Diet effective now 06/25/24 1209 06/26/24 0001 NPO Diet Diet effective midnight 06/25/24 1210 06/18/24 0001 NPO Diet Diet effective midnight 06/17/24 1524 Orderered Tube Feeds and Supplements Medication Dose Route Frequency Provider Last Rate Last Admin Enteral Free water Flush 60 mL 60 mL Nasogastric q4h Andrew Trivedi MD 60 mL at 06/25/24 1014 Fibersource HN liquid 375 mL 375 mL Per PEG Tube 4x daily Andrew Trivedi MD 375 mL at 06/25/24 1313 PO/EN/PN Intakes: No data found. Total nutrition meetin% est caloric needs and 83% est protein needs, per pump history, and 7 days Nutrition Visit Information: 06/25: Pt jayne bolus feeds. K continues to be on the high end, appears to correlate with hyperglycemia. Endocrine following now. 06/22: CM requesting TF recs for facility who has Jevity 1.2. Bolus recs for facility: Jevity 1.2 @ 375 ml (1.5 cans) qid; fwf @ 60 ml before and after feeds (provides 1800 kcal, 83 g pro). Will transition to fibersource hn @ same regimen while in the hospital. Pt with persistent hyperglycemia, consider endocrine consult. 06/18 - Plan for PEG tube today due to dysphagia. EN recommendation are above. Per case management note current discharge plans are to SNF. Should this change consult RD for home health orders if needed. Discussed EN changes with RN at bedside. 06/11 - Intubated. +NGT. TF orders placed today. No family present at bedside at time of visit to obtain hx. Anthropometrics: Height: 155 cm (5' 1.02") Height Method: Stated Weight: Body mass index is 25.39 kg/m?. [place] body weight: 47.9 kg (105 lb 8 oz) Adjusted ideal body weight: 53.1 kg (117 lb 1.5 oz) Wt Readings from Last 10 Encounters: 06/11/24 61 kg (134 lb 7.7 oz) 06/10/24 61 kg (134 lb 7.7 oz) Estimated Nutrition Needs: Weight Used for Equation Calculations: 61 kg (134 lb 7.7 oz) Calculated Energy Needs Using Equations Height: 1.55 m (5' 1.02") Weight Used for Equation Calculations: 61 kg (134 lb 7.7 oz) Energy Equation Used: Rule of thumb (kcal/kg) Energy Lower Range: 25 (kcal/kg) Energy Upper Range: 30 (kcal/day) Energy Needs Lower Range: 1525 kcal/day (kcal/day) Energy Needs Upper Range: 1830 kcal/day Minute Ventilation (L/min): 5.4 L/min Temp: 36.8 ?C (98.2 ?F) Estimated Protein Needs (g/kg) Protein Lower Range: 1.2 (g/kg) Protein Upper Range: 1.5 (g/day) Protein Lower Range: 73 g/day (g/day) Protein Upper Range: 91 g/day Fluid Needs Fluid Needs Method: Or per MD (mL/kg) Fluid Needs: 25 (mL/day) Fluid Needs (Calculated): 1525 mL/day Nutrition Physical Findings per marketing information manager: Orientation Level: Disoriented to place; Disoriented to time; Disoriented to situation O2 Delivery Method: Simple mask Gastrointestinal (WDL): X Abdomen Inspection: Rounded Abdominal Tenderness: Soft; No guarding; Nontender; No rebound Bowel Sounds: All quadrants Bowel Sounds (All Quadrants): Active Last BM Date: 06/25/24 LUE: Paralysis RUE: Limited movement LLE: Limited movement; Weakness RLE: Limited movement; Weakness Edema: Generalized Generalized Edema: +1 LLE Edema: +1 RLE Edema: +1 Wound 06/11/24 Pressure Injury Sacrum (Active) Nutrition Focused Physical Exam - Muscles and Fat: Assessment of Muscle Status Date Assessed: 06/11/24 Muscle Status: No change from prior exam; Deficits present (06/25) Clavicle Bone Region: [id number] deficit: More prominent clavicle bone, less prominent muscle when palpated Assessment of Fat Status Date Assessed: 06/11/24 Fat Status: No change from prior exam; No deficits noted (06/25) Basic Information: Admitting diagnosis: 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 female with PMH of HTN, HLD, hypothyroidism, CABG x3, who presented to [facility] on 06/11/2024 as a transfer from OS in [facility] for stroke evaluation. LKN was on 06/10/24 at 1700hrs. Baseline MRS; 0. Per daughter, pt was in the living room watching TV when she complaint of LUE pain and numbness, left facial droop, aphasia and dysarthria therefore EMS called. On arrival to ED, SBP 170s, BGLs 200s, NIH 16 (gaze deviation, dysarhria, aphasia, left hemiplegia, facial droop, sensory loss). Pt is not taking any AC/AP. Pt vomited on arrival thus intubated for airway protection. CTH revealed early infarct in Rt MCA territory. 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 Medications: amantadine, 100 mg, Per G Tube, Daily amLODIPine, 10 mg, Per G Tube, Daily apixaban, 5 mg, Per G Tube, q12h SKYLA atorvastatin, 80 mg, Per G Tube, Daily bismuth subsalicylate, 30 mL, Oral, 4x daily cefTRIAXone, 1 g, Intravenous, q24h Docusate Sodium, 100 mg, Per G Tube, q12h Enteral Free water Flush, 60 mL, Nasogastric, q4h Fibersource HN, 375 mL, Per PEG Tube, 4x daily hydrALAZINE, 100 mg, Per G Tube, TID insulin glargine, 25 Units, Subcutaneous, Every evening insulin lispro, 16 Units, Subcutaneous, 4x daily lansoprazole, 30 mg, Per G Tube, Daily before breakfast levothyroxine, 100 mcg, Per G Tube, Daily 630 lisinopril, 20 mg, Per G Tube, BID metoprolol tartrate, 100 mg, Per G Tube, q6h SKYLA metroNIDAZOLE, 250 mg, Per G Tube, q6h senna, 10 mL, Per PEG Tube, q12h sodium chloride, 10 mL, Intravenous, q12h SKYLA tetracycline, 500 mg, Per G Tube, BID AC PRN medications: acetaminophen, dextrose, dextrose, glucagon, insulin lispro, ipratropium-albuterol, labetalol, LORazepam, metoprolol tartrate, sodium chloride Labs: Pertinent Labs : Lab Results Component Value Date Sodium Lvl 143 06/25/2024 Potassium Lvl 4.9 (H) 06/25/2024 Chloride Lvl 109 (H) 06/25/2024 CO2 Lvl 23.8 06/25/2024 BUN 49 (H) 06/25/2024 Creatinine Lvl 1.32 (H) 06/25/2024 Glucose Lvl 182 (H) 06/25/2024 POC Glu 185 (H) 06/25/2024 Lab Results Component Value Date Calcium Lvl 8.3 06/25/2024 Magnesium 2.07 06/23/2024 Phosphorus Lvl 3.1 06/23/2024 Lab Results Component Value Date Hgb A1C 7.51 (H) 06/11/2024 Review / Management: I/O 24 HRS: Intake/Output Summary (Last 24 hours) at 06/25/2024 1317 Last data filed at 06/25/2024 0800 Gross per 24 hour Intake 5520 ml Output 150 ml Net 5370 ml Unmeasured Stool Occurrence: 1 Monitoring and Evaluation: MONITORING AND EVALUATION: Weight changes, Muscle wasting, Fat wasting, Skin, Digestive/abdominal assessment, and Labs: BMP, Phos, Mg, BG GOAL: >75% of estimated needs met: Quoc Girard RDN, LD, [facility] Sat-Sat Pager#: [phone] Weekend/biodiesel production technician pager: [phone] L ARTISTS' L ARTISTS' L ARTISTS' Nutrition [facility] 2024-06-17 12:23:14 GASTROENTEROLOGY INPATIENT CONSULT SERVICE CONSULT NOTE Consult requested by Franklin Orosco MD Patient Name: Isabel Henry Primary Care Physician: PCP Date of admission: 06/11/2024 Date of Service: 06/17/2024 Reason for Consultation: dysphagia HPI Isabel Henry is a 78 y.o. female presenting with CVA likely 2/2 cardioembolic (possible A-fib). Patient seen by [facility] on 06/12 who recommend continuation of nonoral nutrition/hydration. GI consulted for PEG evaluation. Patient not interactive on exam. Pertinent History Past Medical History: History reviewed. No pertinent past medical history. Past Surgical History: History reviewed. No pertinent surgical history. FamHx: No family history on file. SocHx: Social History Tobacco Use Smoking status: Never Passive exposure: Never Smokeless tobacco: Never Vaping Use Vaping status: Never Used Substance Use Topics Drug use: Never Home Meds: @PTAMEDSLIST@ All: Allergies Allergen Reactions Depo-Provera [Medroxyprogesterone Acetate] Unknown Review of Systems See HPI Physical Exam Vitals: 06/17/24 0421 06/17/24 0421 06/17/24 0600 06/17/24 0900 BP: 133/89 Pulse: 96 Resp: 16 Temp: 36.6 ?C (97.8 ?F) 36.9 ?C (98.5 ?F) TempSrc: Axillary SpO2: 98% Weight: Height: Physical Exam General: A&O x 0, well-appearing, in no acute distress. HEENT: no scleral icterus Pulmonary: Normal respiratory effort Abdomen: Soft, non tender, non distended, no ascites Neurologic: Not interactive Skin: normal appearance for race Extremities: mild peripheral edema Laboratory data Lab Results Component Value Date WBC 9.70 06/17/2024 Hgb 10.3 (L) 06/17/2024 POC A Hct (calc) 38.0 06/11/2024 Hct 31.7 (L) 06/17/2024 MCV 94.3 06/17/2024 POC A Na 135 06/11/2024 Sodium Lvl 144 06/17/2024 POC A K 3.8 06/11/2024 Potassium Lvl 4.8 (H) 06/17/2024 POC Chloride 104 06/11/2024 Chloride Lvl 113 (H) 06/17/2024 CO2 Lvl 20.0 06/17/2024 BUN 51 (H) 06/17/2024 Calcium Lvl 9.1 06/17/2024 Magnesium 1.87 06/17/2024 Phosphorus Lvl 2.6 06/17/2024 Prothrombin Time (PT) 14.4 06/11/2024 INR 1.10 06/11/2024 PTT 28.4 06/11/2024 Lab Results Component Value Date AST 37 06/11/2024 ALT 19 06/11/2024 Imaging / endoscopy / colonoscopy Reviewed Problem List: Patient Active Problem List Diagnosis Right middle cerebral artery stroke (HCC) Acute intracranial hemorrhage (CMS/HCC) (HCC) Acute respiratory failure (HCC) Hypertension Hyperlipidemia Dysphagia Dysarthria Hemiplegia (CMS/HCC) (HCC) Atrial fibrillation (CMS/HCC) (HCC) Diabetes mellitus (HCC) Aspiration pneumonia (CMS/HCC) (HCC) Assessment/plan: Isabel Henry is a 78 y.o. female presenting with CVA likely 2/2 cardioembolic (possible A-fib). Patient seen by [facility] on 06/12 who recommend continuation of nonoral nutrition/hydration. GI consulted for PEG evaluation. Patient not interactive on exam. Problem List: Dysphagia Recommendations: -Continue tube feeds 06/17 -Stop tube feeds at midnight in case we can schedule PEG for -If possible, hold off on starting DOAC (okay for DVT chemoprophylaxis) -Will plan for likely PEG on Saturday (however make NPO on Saturday night in case we can schedule PEG for ) Vik Wayne DO Internal Medicine l PGY-5 [facility] 06/17/2024 10:39 AM Cosigned by Mckenzie Ely MD at 06/19/2024 11:16 AM MODEL ARTISTS' L ARTISTS' L ARTISTS' Associated attestation - Mckenzie Ely MD - 06/19/2024 11:16 AM MODEL ARTISTS' GI Attending Attestation: I discussed this patient on rounds with the GI team on 06/17/2024, and patient was examined by me. I agree with the assessment and plan, and I have personally reviewed the current lab, radiology, and endoscopy results. The above plan was discussed and supplemented with additional information as needed. Medical decision making complexity is high with at least 2 out of 3 high complexity categories of problems/data review or assessment/risk. GI consulted for PEG tube placement. Patient was admitted with CVA. Plan: -PEG tube placed on 06/18/2024- please see procedure note for additional recs Thank you for the consultation Mckenzie Ely MD [employer] Division of Gastroenterology, Hepatology, & Nutrition [facility] 2024-06-12 07:38:33 Neurocritical Care Progress Note Consulted by primary for stroke/TIA History Of Present Illness Isabel Henry, 78 y.o. female with PMH of HTN, HLD, hypothyroidism, CABG x3, who presented to [facility] on 06/11/2024 as a transfer from OSH in [facility] for stroke evaluation. LKN was on 06/10/24 at 1700hrs. Baseline MRS; 0. Per daughter, pt was in the living room watching TV when she complaint of LUE pain and numbness, left facial droop, aphasia and dysarthria therefore EMS called. On arrival to ED, SBP 170s, BGLs 200s, NIH 16 (gaze deviation, dysarhria, aphasia, left hemiplegia, facial droop, sensory loss). Pt is not taking any AC/AP. Pt vomited on arrival thus intubated for airway protection. CTH revealed early infarct in Rt MCA territory. 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 Pt received Keppra 1gm load in the ED, Versed 5mg IVPx1, NS 1.5L bolus and s/p Aspirin 325 mg load. No TNK as out of the therapeutic window. Neuroendovascular consulted for Rt M2 occlusion and possible IAT. Pt is transferred to [facility] for possible thrombectomy. Pt is admitted to NSICU for further stroke management and close neurological monitoring. Upon arrival to unit, pt is intubated, on Propofol gtt, no eye opening, no cough/gag/corneal, Rt side flickers and left side flaccid with NIH 32. Baseline TOF: 4/4. S/p Keppra 2500 gms load then Keppra 750mg q12hrs and Ativan 2mg IVPx1 per Neurology. Repeat CTH/CTA H/N and CT brain perfusion ordered. Also noted to be hypothermic upon arrival to the ICU. Interval Events: 06/11 initially no motor response. Given ativan and now with flexion to bl UE and RLE flexion. Placed on eeg 06/12- More alert and following commands. Extubated yesterday Past Medical History has no past medical history on file. Surgical History has no past surgical history on file. Family History No family history on file. Social History Social History Tobacco Use Smoking status: Never Passive exposure: Never Smokeless tobacco: Never Vaping Use Vaping status: Never Used Substance Use Topics Drug use: Never Allergies Depo-provera [medroxyprogesterone acetate] Home Medications No medications prior to admission. Review of Systems Unable to evaluate given clinical examination Physical Exam pre-admit mRS: Score 0: No symptoms at all. Further clinical exam documented under Impression and Plan by systems. ===== ASSESSMENT AND PLAN Isabel Henry, 78 y.o. female PMH of HTN, HLD, hypothyroidism, CABG x3, who presented to [facility] on 06/11/2024 as a transfer from OS in [facility] for stroke evaluation, found to have a Rt M2 occlusion, no TNK as OOW and no thrombectomy given minimal penumbra. 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) on admission, NIHSS 30-39 (R29.73) on admission, Encephalopathy unspecified (G93.40) on admission Possible seizure, on admission Facial droop, on admission Dysarthria, on admission Neuro Exam: A&O to self, situation but not place MS: following commands, CN: L pupil 2mm sluggish, R pupil 2mm reactive, Motor: AG in RUE and RLE, LUE with extension, LLE flexion Gait: deferred CTH revealed acute infarct involving the right MCA territory CTA H/N revealed right M2 MCA occlusion of a superior branch without distal reconstitution and severe narrowing of the the V1 and V4 segment of the right vertebral artery occlusion. CT brain perfusion showed rCBF 59cc, Tmax>6s, mismatch volume 3cc, mismatch ratio 1.1 OOW for TNK not a candidate for thrombectomy 2/2 completed stroke on CTH UDS pending, EtOH pending Stroke Etiology: likely cardioembolic given Afib on ECG. MRI brain wo ordered Stroke work-up ordered (LDL, A1c, trop, EKG, TTE) 06/11 ASA 81 mg daily S/p ASA 325 mg load, s/p Keppra 1gm load in the ED, s/p Versed 5mg IVPx1, s/p NS 1.5L bolus in the ED. S/p Keppra 3000mg load in the ICU, then Keppra 750mg q12hrs, d/c 06/12 cEEG - no seizures ; LDL goal <70. atorvastatin 80mg at bedtime. No sedation PT/OT/[facility] as indicated ===== CARDIOVASCULAR Essential hypertension (I10) on admission, [place] vessel CAD without angina (I25.10) on admission CV Exam: RRR Temp: [37.2 ?C (99 ?F)-37.3 ?C (99.2 ?F)] 37.2 ?C (99 ?F) Heart Rate: [88-132] 122 Resp: [14-27] 22 BP: (134-194)/(59-87) 165/78 FiO2 (%): [30 %] 30 % Afib with RVR to 130-140s -06/12 getting 5mg IV metop and will restart home metop VS Parameters: Permissive HTN: SBP<220, DBP<120 Off cardene gtt PRN hydralazine, labetalol CV meds: - Lisinopril 40mg daily (hold) - hydrochlorothiazide 25mg daily -restart - Metoprolol succinate ER 200mg daily, cannot be crushed therefore on metoprolol tartrate 100mg q12h (06/12) - Atorvastation 80mg daily Trop 36 > pending repeat EKG Afib in RVR TTE -Mildly reduced systolic function with an estimated EF of 40 - 45%. Diastolic dysfunction. No a-line, No CVC ===== PULMONARY PNA unspecified organism (J18.9) on admission Pulm Exam: CTAB ABG Results from last 7 days Lab Units 06/11/24 0129 POC PH, ARTERIAL 7.35 POC PCO2, ARTERIAL mmHg 39 POC PO2, ARTERIAL mmHg 307 POC HCO3, ARTERIAL mMol/L 22 POC SO2, ARTERIAL (CALC) % 99.9 POC BASE EXCESS, ARTERIAL mMol/L -4* On RA Extubated 06/11, 06/11 CXR bilateral opacities, infiltrates. VAP bundle Daily CXR and ABG while intubated. ===== GASTROINTESTINAL Dysphagia unspecified (R13.1) on admission, Transaminitis (R74.01) on admission GI Exam: soft, non-distended, present bowl sounds Nutrition: Current Order: NPO Diet, TF, failed swallow eval GI route: NGT GI ppx: Pepcid q12h/BID bowel regimen: senna, docusate, NH ducolax last BM HEEL TURNER Lab Results Component Value Date ALT 19 06/11/2024 AST 37 06/11/2024 Alkaline Phosphatase 27 (L) 06/11/2024 Bilirubin Total 0.73 06/11/2024 ===== RENAL MIGDALIA 2/2 unspecified (N17.9) on admission Intake/Output Summary (Last 24 hours) at 06/12/2024 0738 Last data filed at 06/12/2024 0000 Gross per 24 hour Intake 210 ml Output 850 ml Net -640 ml Results from last 7 days Lab Units 06/12/24 0014 06/11/24 0132 06/11/24 0129 POC SODIUM, ARTERIAL mEq/L -- -- 135 SODIUM mEq/L 139 139 -- POC POTASSIUM, ARTERIAL mEq/L -- -- 3.8 POTASSIUM mEq/L 4.7* 3.8 -- POC CHLORIDE mEq/L -- -- 104 CHLORIDE mEq/L 108* 107 -- CO2 mEq/L 19.2* 23.0 -- BUN mg/dL 15 26* -- CREATININE mg/dL 1.58* 1.50* -- ICU electrolyte replacement protocol NS 50 ml/hr while NPO- dc ramona present, d/c 06/12 K+ goal >4.0, Mg+ >2.0 ===== INFECTIOUS DISEASE Severe sepsis without septic shock (65.20) on admission , PNA, unspecified organism (J18.9) on admission Hypothermic on admit Temp (24hrs), Av.3 ?C (99.1 ?F), Min:37.2 ?C (99 ?F), Max:37.3 ?C (99.2 ?F) Results from last 7 days Lab Units 06/12/24 0223 06/11/24 0443 06/11/24 0132 WBC 10*3/uL 9.60 9.83 8.16 UA noninfectious Afebrile- hypothermic Monitor trend fever curve and WBC 06/11 Zosyn 3.375gm IV q8hrs- dc,06/12 Correct hypothermia, rewarm to goal 37.5 ===== HEMATOLOGIC Results from last 7 days Lab Units 06/12/2422206/11/243 06/11/24 0132 HEMOGLOBIN g/dL 10.5* 11.1 11.1 PLATELETS 10*3/uL 233 260 253 INR -- 1.10 1.07 PTT Seconds -- 28.4 -- S/p ASA 325 mg load in the ED. ASA 81 mg daily DVT ppx: SCDs; start subcutaneous heparin ===== ENDOCRINE Hypothyroidism unspecified (E03.9) on admission, Hypercholesterolemia unspecified (E78.00) on admission, Hyperlipidemia unspecified (E78.5) on admission, T2DM w/ hyperglycemia (E11.65) on admission Results from last 7 days Lab Units 06/12/24 0025 06/12/24 0014 06/11/24 1725 06/11/24 0737 06/11/24 0443 GLUCOSE mg/dL -- 229* -- -- -- POC GLUCOSE mg/dL 219* -- 173* < > -- HEMOGLOBIN A1C % -- -- -- -- 7.51* TSH uIU/mL -- -- -- -- 1.041 CHOLESTEROL mg/dL -- -- -- -- 116 TRIGLYCERIDES mg/dL -- -- -- -- 144 HDL CHOLESTEROL mg/dL -- -- -- -- 40.1 < > = values in this interval not displayed. BG goal 80-180 medium-dose ISS - schedule 5 NPH q8h Hold Glimepiride Levothyroxine 100mcg daily Lipitor 80mg daily. ===== MUSCULOSKELETAL AND INTEGUMENTARY Skin Exam: warm, dry, intact ===== Code Status: No Order Disposition: keep in ICU as pt remains in critical state-->stroke imu [facility] Neurocritical Care ICU [place] ICU Ph #[phone] The patient has an illness or injury that has acutely impaired one or more vital organ systems. There is a high probability of imminent or life threatening deterioration in the patient's condition during this evaluation. This is the total time spent evaluating the patient, speaking with medical staff and family, interpreting studies, discussing the case with consultants and admitting teams, retrieving data and reviewing charts, documenting the visit, and performing bundled procedures required during patient management. TIME (IN MINUTES) SPENT Day MD Day JASWANT - ( Day Total TIME (IN MINUTES) SPENT Night MD Night JASWANT - (Farhad Bryant NP) Night Total TOTAL OF TIME (IN MINUTES) SPENT The patient was seen and examined by me at a separate time from the Resident, Dr. Jenkins. I also reviewed the documentation and agree with the documented findings and plan of care. Additionally, I was directly involved in the management of the patient and provided the substantive portion of this visit, including examining the patient, obtaining history, and medical decision-making. [facility] Neurology Physician Syed Bean 2024-06-11 12:59:16 Associated Order(s): IP SCREENING REFERRAL TO NUTRITION SERVICES; IP CONSULT TO NUTRITION SERVICES NUTRITION ASSESSMENT - ADULT Unit: NSICU Reason for RD Encounter: Consult Reason : Tube Feeding Screening Reason : Pressure injury Findings Nutrition Diagnosis: Nutrition Diagnosis: Inadequate oral intake related to dysphagia and respiratory distress as evidenced by NPO status and requiring enteral nutrition for nutrient. * Interventions and Recommendation: Recommend Peptamen AF with goal rate of 65 ml/hr (provides 1716 kcal, 109g prot x22hr) Diet per [facility] recommendations when liberated from vent Monitor K, Phos, Mg with TF initiation NUTRITION RISK: Moderate, in 5-7 days Next Date for Nutrition Services Follow Up: 06/18/24 Communication : Primary team Current Nutrition: Dietary Orders (From admission, onward) Start Ordered 06/11/24 0121 NPO Diet Diet effective now 06/11/24 0120 Orderered Tube Feeds and Supplements Medication Dose Route Frequency Provider Last Rate Last Admin peptamen AF liquid Nasogastric Continuous Karis Rivera MD PO/EN/PN Intakes: No data found. Nutrition Visit Information: 06/11 - Intubated. +NGT. TF orders placed today. No family present at bedside at time of visit to obtain hx. Anthropometrics: Height: 155 cm (5' 1.02") Height Method: Stated Weight: Body mass index is 25.39 kg/m?. [place] body weight: 47.9 kg (105 lb 8 oz) Adjusted ideal body weight: 53.1 kg (117 lb 1.5 oz) Wt Readings from Last 10 Encounters: 06/11/24 61 kg (134 lb 7.7 oz) 06/10/24 61 kg (134 lb 7.7 oz) Estimated Nutrition Needs: Weight Used for Equation Calculations: 61 kg (134 lb 7.7 oz) Calculated Energy Needs Using Equations Height: 1.55 m (5' 1.02") Weight Used for Equation Calculations: 61 kg (134 lb 7.7 oz) Energy Equation Used: Rule of thumb (kcal/kg) Energy Lower Range: 25 (kcal/kg) Energy Upper Range: 30 (kcal/day) Energy Needs Lower Range: 1525 kcal/day (kcal/day) Energy Needs Upper Range: 1830 kcal/day Minute Ventilation (L/min): 6.7 L/min Temp: (!) 35.6 ?C (96 ?F) Estimated Protein Needs (g/kg) Protein Lower Range: 1.2 (g/kg) Protein Upper Range: 1.5 (g/day) Protein Lower Range: 73 g/day (g/day) Protein Upper Range: 91 g/day Fluid Needs Fluid Needs Method: Or per MD (mL/kg) Fluid Needs: 25 (mL/day) Fluid Needs (Calculated): 1525 mL/day Nutrition Physical Findings per marketing information manager: Orientation Level: Unable to assess Gastrointestinal (WDL): WDL LUE: Paralysis RUE: Paralysis LLE: Paralysis RLE: Paralysis Gastric Tube 06/11/24 Right nostril (Active) Wound 06/11/24 Pressure Injury Sacrum (Active) Nutrition Focused Physical Exam - Muscles and Fat: Assessment of Muscle Status Date Assessed: 06/11/24 Clavicle Bone Region: [id number] deficit: More prominent clavicle bone, less prominent muscle when palpated Assessment of Fat Status Date Assessed: 06/11/24 Fat Status: No deficits noted Basic Information: Admitting diagnosis: 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 female with PMH of HTN, HLD, hypothyroidism, CABG x3, who presented to [facility] on 06/11/2024 as a transfer from OSH in [facility] for stroke evaluation. LKN was on 06/10/24 at 1700hrs. Baseline MRS; 0. Per daughter, pt was in the living room watching TV when she complaint of LUE pain and numbness, left facial droop, aphasia and dysarthria therefore EMS called. On arrival to ED, SBP 170s, BGLs 200s, NIH 16 (gaze deviation, dysarhria, aphasia, left hemiplegia, facial droop, sensory loss). Pt is not taking any AC/AP. Pt vomited on arrival thus intubated for airway protection. CTH revealed early infarct in Rt MCA territory. 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 Medications: artificial tears, 1 Application, Both Eyes, q6h SKYLA atorvastatin, 80 mg, Oral, Daily chlorhexidine, 15 mL, Mouth/Throat, 4x daily Docusate Sodium, 100 mg, Per G Tube, q12h famotidine, 20 mg, Intravenous, q12h SKYLA levETIRAcetam, 750 mg, Intravenous, q12h piperacillin-tazobactam (Zosyn) 3.375 g in sodium chloride 0.9 % 100 mL IVPB-MB+, 3.375 g, Intravenous, q8h senna, 10 mL, Oral, q12h sodium chloride, 10 mL, Intravenous, q12h SKYLA peptamen AF, sodium chloride, 50 mL/hr, Last Rate: 50 mL/hr (06/11/24 0426) PRN medications: calcium gluconate, chlorhexidine, dextrose, dextrose, glucagon, insulin lispro, labetalol, magnesium sulfate, potassium chloride OR potassium chloride OR potassium chloride OR Potassium chloride, sodium chloride, sodium phosphates 45 mmol in sodium chloride 0.9 % 100 mL IVPB Labs: Pertinent Labs : Lab Results Component Value Date POC A Na 135 06/11/2024 Sodium Lvl 139 06/11/2024 POC A K 3.8 06/11/2024 Potassium Lvl 3.8 06/11/2024 POC Chloride 104 06/11/2024 Chloride Lvl 107 06/11/2024 CO2 Lvl 23.0 06/11/2024 BUN 26 (H) 06/11/2024 Creatinine Lvl 1.50 (H) 06/11/2024 POC A Glu 214 (H) 06/11/2024 Glucose Lvl 202 (H) 06/11/2024 POC Glu 232 (H) 06/11/2024 Lab Results Component Value Date Calcium Lvl 8.2 (L) 06/11/2024 Lab Results Component Value Date Hgb A1C 7.51 (H) 06/11/2024 Review / Management: I/O 24 HRS: Intake/Output Summary (Last 24 hours) at 06/11/2024 1259 Last data filed at 06/11/2024 1100 Gross per 24 hour Intake -- Output 3075 ml Net -3075 ml Monitoring and Evaluation: MONITORING AND EVALUATION: Weight changes, Muscle wasting, Fat wasting, Skin, Digestive/abdominal assessment, and Labs: BMP, Phos, Mg, BG GOAL: >75% of estimated needs met: Sidra Alcala RD, LD, CNS Pager [phone] Weekend Pager [phone] L [facility] Nutrition [facility] 2024-06-11 12:42:13 Spiritual Care Subjective Responded to Admissions request. Pt is intubated and sedated. No family present. Provided prayer and left cleaning custodian brochure at bedside. Will follow as circumstances allow. Interventions Relationship Building Interventions: Provided compassionate presence Ritual Interventions: Provided prayer Plan Follow-up: Follow PRN L ARTISTS' [facility] 2024-06-11 08:00:00 Neurocritical Care Consultation Note Consulted by primary for stroke/TIA History Of Present Illness Isabel Henry, 78 y.o. female with PMH of HTN, HLD, hypothyroidism, CABG x3, who presented to [facility] on 06/11/2024 as a transfer from OS in [facility] for stroke evaluation. LKN was on 06/10/24 at 1700hrs. Baseline MRS; 0. Per daughter, pt was in the living room watching TV when she complaint of LUE pain and numbness, left facial droop, aphasia and dysarthria therefore EMS called. On arrival to ED, SBP 170s, BGLs 200s, NIH 16 (gaze deviation, dysarhria, aphasia, left hemiplegia, facial droop, sensory loss). Pt is not taking any AC/AP. Pt vomited on arrival thus intubated for airway protection. CTH revealed early infarct in Rt MCA territory. 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 Pt received Keppra 1gm load in the ED, Versed 5mg IVPx1, NS 1.5L bolus and s/p Aspirin 325 mg load. No TNK as out of the therapeutic window. Neuroendovascular consulted for Rt M2 occlusion and possible IAT. Pt is transferred to [facility] for possible thrombectomy. Pt is admitted to NSICU for further stroke management and close neurological monitoring. Upon arrival to unit, pt is intubated, on Propofol gtt, no eye opening, no cough/gag/corneal, Rt side flickers and left side flaccid with NIH 32. Baseline TOF: 4/4. S/p Keppra 2500 gms load then Keppra 750mg q12hrs and Ativan 2mg IVPx1 per Neurology. Repeat CTH/CTA H/N and CT brain perfusion ordered. Also noted to be hypothermic upon arrival to the ICU. Interval Events: 06/11 initially no motor response. Given ativan and now with flexion to bl UE and RLE flexion. Placed on eef Past Medical History has no past medical history on file. Surgical History has no past surgical history on file. Family History No family history on file. Social History Allergies Depo-provera [medroxyprogesterone acetate] Home Medications No medications prior to admission. Review of Systems Unable to evaluate given clinical examination Physical Exam pre-admit mRS: Score 0: No symptoms at all. Further clinical exam documented under Impression and Plan by systems. ===== ASSESSMENT AND PLAN Isabel Henry, 78 y.o. female PMH of HTN, HLD, hypothyroidism, CABG x3, who presented to [facility] on 06/11/2024 as a transfer from OSH in [facility] for stroke evaluation, found to have a Rt M2 occlusion, no TNK as OOW and possible thrombectomy. 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) on admission, NIHSS 30-39 (R29.73) on admission, Encephalopathy unspecified (G93.40) on admission Possible seizure, on admission Facial droop, on admission Dysarthria, on admission Neuro Exam: GCS: E1 No eye opening, V1 Intubated, M1 No motor response MS: intubated, not following commands, CN: L pupil 2mm sluggish, R pupil 2mm sluggish, Motor: bl UE localizes R>L, LLE localizes RLE>LLE Gait: deferred CTH revealed acute infarct involving the right MCA territory CTA H/N revealed right M2 MCA occlusion of a superior branch without distal reconstitution and severe narrowing of the the V1 and V4 segment of the right vertebral artery occlusion. CT brain perfusion showed rCBF 59cc, Tmax>6s, mismatch volume 3cc, mismatch ratio 1.1 OOW for TNK not a candidate for thrombectomy 2/2 completed stroke on CTH UDS pending, EtOH pending Stroke Etiology: likely cardioembolic given Afib on ECG. MRI brain wo ordered Stroke work-up ordered (LDL, A1c, trop, EKG, TTE) Start ASA 81 mg daily S/p ASA 325 mg load, s/p Keppra 1gm load in the ED, s/p Versed 5mg IVPx1, s/p NS 1.5L bolus in the ED. S/p Keppra 3000mg load in the ICU, then Keppra 750mg q12hrs Fu cEEG results ; LDL goal <70. atorvastatin 80mg at bedtime. No sedation PT/OT/[facility] as indicated ===== CARDIOVASCULAR Essential hypertension (I10) on admission, [place] vessel CAD without angina (I25.10) on admission CV Exam: RRR Temp: [34.3 ?C (93.7 ?F)-35.6 ?C (96 ?F)] 35.6 ?C (96 ?F) Heart Rate: [99-119] 99 Resp: [12-21] 14 BP: (134-230)/(69-107) 134/69 FiO2 (%): [30 %] 30 % VS Parameters: Permissive HTN: SBP<220, DBP<120 Off cardene gtt PRN hydralazine, labetalol CV meds: - Lisinopril 40mg daily (hold) - hydrochlorothiazide 25mg daily (hold) - Metoprolol succinate ER 200mg daily (hold) - Atorvastation 80mg daily Trop 36 > pending repeat EKG Afib in RVR reportedly, pending EKG here TTE -completed, pending read No a-line, No CVC ===== PULMONARY PNA unspecified organism (J18.9) on admission Pulm Exam: CTAB ABG Results from last 7 days Lab Units 06/11/24 0129 POC PH, ARTERIAL 7.35 POC PCO2, ARTERIAL mmHg 39 POC PO2, ARTERIAL mmHg 307 POC HCO3, ARTERIAL mMol/L 22 POC SO2, ARTERIAL (CALC) % 99.9 POC BASE EXCESS, ARTERIAL mMol/L -4* FiO2 (%): [30 %] 30 % S RR: [12] 12 S VT: [400 mL] 400 mL PEEP/CPAP (cm H2O): [5 cm H2O] 5 cm H2O MAP (cm H2O): [7.9-8.9] 8.9 intubated on admit 06/11 CXR bilateral opacities, infiltrates. VAP bundle Daily CXR and ABG while intubated. ===== GASTROINTESTINAL Dysphagia unspecified (R13.1) on admission, Transaminitis (R74.01) on admission GI Exam: soft, non-distended, present bowl sounds Nutrition: Current Order: NPO Diet, start TF GI route: NGT GI ppx: Pepcid q12h/BID bowel regimen: senna, docusate, NH ducolax last BM HEEL TURNER Lab Results Component Value Date ALT 19 06/11/2024 AST 37 06/11/2024 Alkaline Phosphatase 27 (L) 06/11/2024 Bilirubin Total 0.73 06/11/2024 ===== RENAL MIGDALIA 2/2 unspecified (N17.9) on admission Intake/Output Summary (Last 24 hours) at 06/11/2024 1305 Last data filed at 06/11/2024 1100 Gross per 24 hour Intake -- Output 3075 ml Net -3075 ml Results from last 7 days Lab Units 06/11/24 0132 06/11/24 0129 POC SODIUM, ARTERIAL mEq/L -- 135 SODIUM mEq/L 139 -- POC POTASSIUM, ARTERIAL mEq/L -- 3.8 POTASSIUM mEq/L 3.8 -- POC CHLORIDE mEq/L -- 104 CHLORIDE mEq/L 107 -- CO2 mEq/L 23.0 -- BUN mg/dL 26* -- CREATININE mg/dL 1.50* -- ICU electrolyte replacement protocol NS 50 ml/hr while NPO ramona present for UOP monitoring in the unstable critically ill patient K+ goal >4.0, Mg+ >2.0 ===== INFECTIOUS DISEASE Severe sepsis without septic shock (65.20) on admission , PNA, unspecified organism (J18.9) on admission Hypothermic on admit Temp (24hrs), Av.9 ?C (94.9 ?F), Min:34.3 ?C (93.7 ?F), Max:35.6 ?C (96 ?F) Results from last 7 days Lab Units 06/11/24 0443 06/11/24 0132 WBC 10*3/uL 9.83 8.16 UA noninfectious Afebrile- hypothermic Add respiratory, blood cx, porcal MRSA, TVP Monitor trend fever curve and WBC Zosyn 3.375gm IV q8hrs Correct hypothermia, rewarm to goal 37.5 ===== HEMATOLOGIC Results from last 7 days Lab Units 06/11/24 0443 06/11/24 0132 HEMOGLOBIN g/dL 11.1 11.1 PLATELETS 10*3/uL 260 253 INR 1.10 1.07 PTT Seconds 28.4 -- S/p ASA 325 mg load in the ED. Start ASA 81 mg daily DVT ppx: SCDs; start subcut heparin ===== ENDOCRINE Hypothyroidism unspecified (E03.9) on admission, Hypercholesterolemia unspecified (E78.00) on admission, Hyperlipidemia unspecified (E78.5) on admission, T2DM w/ hyperglycemia (E11.65) on admission Results from last 7 days Lab Units 06/11/24 0737 06/11/24 0443 06/11/24 0132 06/11/24 0132 06/11/24 0129 POC GLUCOSE, ARTERIAL mg/dL -- -- -- -- 214* GLUCOSE mg/dL -- -- -- 202* -- POC GLUCOSE mg/dL 232* -- -- -- -- HEMOGLOBIN A1C % -- 7.51* < > 7.40* -- TSH uIU/mL -- 1.041 -- -- -- CHOLESTEROL mg/dL -- 116 < > 117 -- TRIGLYCERIDES mg/dL -- 144 < > 166 -- HDL CHOLESTEROL mg/dL -- 40.1 < > 38.6 -- < > = values in this interval not displayed. BG goal 80-180 medium-dose ISS , hasn't gotten insulin yet Hold Glimepiride Resume Levothyroxine 100mcg daily Lipitor 80mg daily. ===== MUSCULOSKELETAL AND INTEGUMENTARY Skin Exam: warm, dry, intact ===== Code Status: No Order Disposition: keep in ICU as pt remains in critical state [facility] Neurocritical Care ICU [place] ICU Ph #[phone] The patient has an illness or injury that has acutely impaired one or more vital organ systems. There is a high probability of imminent or life threatening deterioration in the patient's condition during this evaluation. This is the total time spent evaluating the patient, speaking with medical staff and family, interpreting studies, discussing the case with consultants and admitting teams, retrieving data and reviewing charts, documenting the visit, and performing bundled procedures required during patient management. TIME (IN MINUTES) SPENT 40 Day MD Day JASWANT - ( 40 Day Total TIME (IN MINUTES) SPENT 45 Night MD 30 Night JASWANT - (Farhad Bryant NP) 75 Night Total 115 TOTAL OF TIME (IN MINUTES) SPENT The patient was seen and examined by me at a separate time from the Resident Dr. Jenkins. I also reviewed the documentation and agree with the documented findings and plan of care. Additionally, I was directly involved in the management of the patient and provided the substantive portion of this visit, including examining the patient, obtaining history, and medical decision-making. L ARTISTS' L ARTISTS' Neurology Physician [facility] 2024-06-11 03:00:00 Vascular and Interventional Neurology Thrombectomy Evaluation Note Date of Service: 06/11/[address] Garces and her attending to evaluate this patient for possible mechanical thrombectomy. In brief, the patient is a 74 YO female w/ a PMHx of DM, CAD who presented with left sided weakness. The patient's baseline mRS is 0 and LKW was 06/10 1700. On neurologic exam, the patient had L sided weakness, L sensory change, and R gaze and was given an NIHSS of 16. By the time of arrival there was also evidence of possible seizure. NCCT Head showed some established infarct in the superior division of the right MCA w/ ASPECTs of 6. CTA H&N did not show a clear cutoff or stump but there was assumed to be occlusion of a branch at its origin given the asymmetry of collaterals. CTP showed there was essentially no mismatch between core and penumbra. The patient did not receive IV Alteplase/Tenecteplase since LKW >4.5 hours. After a thorough discussion with the biodiesel production technician Neurology and Neuroradiology teams, a decision was made that the risks of thrombectomy outweighed the benefits. This was determined since it was presumed there would be a higher than average risk of attempting to find the origin (no clear stump on CTA) of the presumed occluded right MCA branch and there would be a theoretical risk of losing thrombus in the other open branches. Furthermore, the entire territory in question appeared already infarcted on both NCCT and CTP, so the possible benefit was believed to be low. All were in agreement. PLAN: - Medical management per Neurology team CRITICAL CARE ATTESTATION The patient remains critically ill due to presumed right M2 occlusion. I spent a total of 50 (30-70, [id number]) minutes time at the bedside evaluating the patient, reviewing data and discussing the plan of care with the teams and updating the family on plan of care and prognosis. Pako Espinoza MD PhD Vascular and Interventional Neurology [facility] L ART[facility] Neurology Physician [facility] 2024-06-11 02:50:00 Neurocritical Care Consultation Note Consulted by primary for stroke/TIA History Of Present Illness Isabel Henry, 78 y.o. female with PMH of HTN, HLD, hypothyroidism, CABG x3, who presented to [facility] on 06/11/2024 as a transfer from OS in [facility] for stroke evaluation. LKN was on 06/10/24 at 1700hrs. Baseline MRS; 0. Per daughter, pt was in the living room watching TV when she complaint of LUE pain and numbness, left facial droop, aphasia and dysarthria therefore EMS called. On arrival to ED, SBP 170s, BGLs 200s, NIH 16 (gaze deviation, dysarhria, aphasia, left hemiplegia, facial droop, sensory loss). Pt is not taking any AC/AP. Pt vomited on arrival thus intubated for airway protection. CTH revealed early infarct in Rt MCA territory. 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 Pt received Keppra 1gm load in the ED, Versed 5mg IVPx1, NS 1.5L bolus and s/p Aspirin 325 mg load. No TNK as out of the therapeutic window. Neuroendovascular consulted for Rt M2 occlusion and possible IAT. Pt is transferred to [facility] for possible thrombectomy. Pt is admitted to NSICU for further stroke management and close neurological monitoring. Upon arrival to unit, pt is intubated, on Propofol gtt, no eye opening, no cough/gag/corneal, Rt side flickers and left side flaccid with NIH 32. Baseline TOF: 4/4. S/p Keppra 2500 gms load then Keppra 750mg q12hrs and Ativan 2mg IVPx1 per Neurology. Repeat CTH/CTA H/N and CT brain perfusion ordered. Also noted to be hypothermic upon arrival to the ICU. Interval Events: Past Medical History has no past medical history on file. Surgical History has no past surgical history on file. Family History No family history on file. Social History Allergies Patient has no known allergies. Home Medications No medications prior to admission. Review of Systems Unable to evaluate given clinical examination Physical Exam pre-admit mRS: Score 0: No symptoms at all. Further clinical exam documented under Impression and Plan by systems. ===== ASSESSMENT AND PLAN Isabel Henry, 78 y.o. female PMH of HTN, HLD, hypothyroidism, CABG x3, who presented to [facility] on 06/11/2024 as a transfer from OS in [facility] for stroke evaluation, found to have a Rt M2 occlusion, no TNK as OOW and possible thrombectomy. 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) on admission, NIHSS 30-39 (R29.73) on admission, Encephalopathy unspecified (G93.40) on admission Possible seizure, on admission Facial droop, on admission Dysarthria, on admission Neuro Exam: GCS: E1 No eye opening, V1 Intubated, M1 No motor response MS: intubated, not following commands, CN: L pupil 2mm br, R pupil 2mm br, Motor: Rt flickers, Lt: 0/5 Sensory: JAVIER Gait: deferred CTH revealed acute infarct involving the right MCA territory CTA H/N revealed right M2 MCA occlusion of a superior branch without distal reconstitution and severe narrowing of the the V1 and V4 segment of the right vertebral artery occlusion. CT brain perfusion showed rCBF 59cc, Tmax>6s, mismatch volume 3cc, mismatch ratio 1.1 OOW for TNK not a candidate for thrombectomy 2/2 completed stroke on CTH. UDS pending, EtOH pending Stroke Etiology: likely cardioembolic given Afib on ECG. MRI brain wo ordered Stroke work-up ordered (LDL, A1c, trop, EKG, TTE) Recommend aspirin 81mg daily for secondary stroke prevention. S/p ASA 325 mg load, s/p Keppra 1gm load in the ED, s/p Versed 5mg IVPx1, s/p NS 1.5L bolus in the ED. S/p Keppra 3000mg load in the ICU then Keppra 750mg q12hrs -->get ceeg if no exam improvement with sedation being held and hypothermia correction ; LDL goal <70. Start atorvastatin 80mg at bedtime. Propofol gtt on arrival, currently stopped. PT/OT/RETAIL PHARMACY MERCHANDISER as indicated ===== CARDIOVASCULAR Essential hypertension (I10) on admission, [place] vessel CAD without angina (I25.10) on admission CV Exam: RRR Heart Rate: [115] 115 Resp: [12] 12 BP: (209)/(95) 209/95 FiO2 (%): [30 %] 30 % VS Parameters: Permissive HTN: SBP<220, DBP<120 PRN hydralazine, labetalol CV meds: - Lisinopril 40mg daily (hold) - hydrochlorothiazide 25mg daily (hold) - Metoprolol succinate ER 200mg daily (hold) - Atorvastation 40mg daily (resume, increased dose) Trop ordered EKG Afib in RVR TTE ordered No a-line, No CVC ===== PULMONARY PNA unspecified organism (J18.9) on admission Pulm Exam: CTAB ABG Results from last 7 days Lab Units 06/11/24 0129 POC PH, ARTERIAL 7.35 POC PCO2, ARTERIAL mmHg 39 POC PO2, ARTERIAL mmHg 307 POC HCO3, ARTERIAL mMol/L 22 POC SO2, ARTERIAL (CALC) % 99.9 POC BASE EXCESS, ARTERIAL mMol/L -4* FiO2 (%): [30 %] 30 % S RR: [12] 12 S VT: [400 mL] 400 mL PEEP/CPAP (cm H2O): [5 cm H2O] 5 cm H2O MAP (cm H2O): [8] 8 intubated on admit CXR bilateral opacities, infiltrates. VAP bundle Daily CXR and ABG while intubated. ===== GASTROINTESTINAL Dysphagia unspecified (R13.1) on admission, Transaminitis (R74.01) on admission GI Exam: soft, non-distended, present bowl sounds Nutrition: Current Order: NPO Diet GI route: Insert OGT GI ppx: Pepcid q12h/BID bowel regimen: senna, docusate, NH ducolax last BM HEEL TURNER No results found for: "ALT", "AST", "GGT", "ALKPHOS", "BILITOT" ===== RENAL MIGDALIA 2/2 unspecified (N17.9) on admission No intake or output data in the 24 hours ending 06/11/24 0154 Results from last 7 days Lab Units 06/11/24 0129 POC SODIUM, ARTERIAL mEq/L 135 POC POTASSIUM, ARTERIAL mEq/L 3.8 POC CHLORIDE mEq/L 104 ICU electrolyte replacement protocol NS 50 ml/hr while NPO greene present for UOP monitoring in the unstable critically ill patient K+ goal >4.0, Mg+ >2.0 ===== INFECTIOUS DISEASE Severe sepsis without septic shock (65.20) on admission , PNA, unspecified organism (J18.9) on admission Hypothermic on admit No data recorded. UA ordered Monitor trend fever curve and WBC Start Zosyn 3.375gm IV q8hrs Correct hypothermia, rewarm to goal 37.5 ===== HEMATOLOGIC No lab exists for component: "APTT" S/p ASA 325 mg load in the ED. DVT ppx: SCDs; hold sc heparin ===== ENDOCRINE Hypothyroidism unspecified (E03.9) on admission, Hypercholesterolemia unspecified (E78.00) on admission, Hyperlipidemia unspecified (E78.5) on admission, T2DM w/ hyperglycemia (E11.65) on admission Results from last 7 days Lab Units 06/11/24 0129 POC GLUCOSE, ARTERIAL mg/dL 214* BG goal 80-180 medium-dose ISS Hold Glimepiride Resume Levothyroxine 100mcg daily Started on Lipitor 80mg daily. ===== MUSCULOSKELETAL AND INTEGUMENTARY Skin Exam: warm, dry, intact ===== Code Status: No Order Disposition: keep in ICU as pt remains in critical state [facility] Neurocritical Care ICU [place] [facility] ICU Ph #[phone] The patient has an illness or injury that has acutely impaired one or more vital organ systems. There is a high probability of imminent or life threatening deterioration in the patient's condition during this evaluation. This is the total time spent evaluating the patient, speaking with medical staff and family, interpreting studies, discussing the case with consultants and admitting teams, retrieving data and reviewing charts, documenting the visit, and performing bundled procedures required during patient management. TIME (IN MINUTES) SPENT Day MD Day JASWANT - ( Day Total TIME (IN MINUTES) SPENT 45 Night MD 30 Night JASWANT - (Farhad Bryant NP) 75 Night Total 75 TOTAL OF TIME (IN MINUTES) SPENT The patient was seen and examined by me at a separate time from the JASWANT. I also reviewed the documentation and agree with the documented findings and plan of care. Additionally, I was directly involved in the management of the patient and provided the substantive portion of this visit, including examining the patient, obtaining history, and medical decision-making. L ARTISTS' L ARTISTS' Neurology Physician Syed Bean History and Physical Notes Date/Time Note Provider Source 2024-06-11 06:19:53 Stroke H&P Team: Stroke B Contact: [phone] No chief complaint on file. Subjective: HPI 78 year old female with a history of HTN, DM II, HLD and hypothyroidism who was found to have an ischemic infarct of the right MCA territory at an outside hospital who presented as a transfer for possible thrombectomy. Patient was intubated at the OSH for airway protection. Transferred here via LF on propofol and Cardene drip. History was obtained from patient's granddaughter. Patient was last seen normal at 5 PM when she was sitting on a couch watching TV. Around 9 PM patient was complaining of left upper extremity pain and was found to have a droop and decreased responsiveness. At this time patient was taken to an outside hospital where CT head was conducted and and a CTA which showed a possible right MCA occlusion. TNK was deferred as patient was out of the window. On arrival to [facility] patient was comatose, not completely explained by the Right MCA stroke. Possible due to being on sedatives at the OSH, or concern for subclinical seizures. Patient is in NICU for close observation. Patient received CT head upon arrival and was found to have a ischemic stroke in right M2 distribution with aspects of 6. CTA showed a right MCA infarct however as per radiology no stump was found. CT perfusion was obtained and found to have the penumbra/infarct ratio almost 1. The mismatch was 3 ml. There was a concern for subclinical seizures in a setting of clinical exam disproportionate to Neuroimaging findings - keppra load was ordered and given. Ativan 2 mg was administered. Patient is on following home meds: Hydrochlorothiazide: 25 mg every day Glimepiride 2 mg every day Atorvastatin 40 mg every day Fenofibrate 160 every day Lisinopril 40 mg every day Metoprolol ER 200 mg every day Metformin 500 mg BID Review of Systems - could not obtain No past medical history on file. No past surgical history on file. No family history on file. Social History Socioeconomic History Marital status: Not on file Spouse name: Not on file Number of children: Not on file Years of education: Not on file Highest education level: Not on file Occupational History Not on file Tobacco Use Smoking status: Not on file Smokeless tobacco: Not on file Substance and Sexual Activity Alcohol use: Not on file Drug use: Not on file Sexual activity: Not on file Other Topics Concern Not on file Social History Narrative Not on file Social Drivers of Health Financial Resource Strain: Not on file Food Insecurity: Not on file Transportation Needs: Not on file Physical Activity: Not on file Stress: Not on file Social Connections: Not on file Intimate Partner Violence: Not At Risk (06/11/2024) Humiliation, Afraid, Rape, and Kick questionnaire Fear of Current or Ex-Partner: No Emotionally Abused: No Physically Abused: No Sexually Abused: No Housing Stability: Not on file No medications prior to admission. Objective: Vitals: 06/11/24 0328 06/11/24 0400 06/11/24 0500 06/11/24 0600 BP: (!) 189/87 (!) 185/81 134/69 Pulse: (!) 117 (!) 110 (!) 105 Resp: 13 21 15 Temp: (!) 35.2 ?C (95.3 ?F) SpO2: 99% 99% 100% 100% Physical Exam: General: well nourished, intubated and on a ventilator. HEENT: NCAT, anicteric sclera, CV: tachycardia, intact peripheral pulses Pulm: breathing on the vent, symmetric chest expansion Neuro Exam: (initial exam) - comatose. No corneals bilaterally. Pupils 1.5 mm equal round and reactive bilat. No cough or gag. Not withdrawing to pain on all 4. No triple flexion. Not posturing. Neuro exam (later exam) - after approximately 1 hour. - no corneals. Weak cough, weak gag. Pupils 1.5 mm bilaterally and reactive to light. - weak withdrawal on right upper, plegic on left upper. Localizing with right lower extremity towards left lower extremity when pain is applied to LLE. Left lower is more triple flexion vs withdrawal. MRS: 0- Completely asymptomatic and independent NIHSS: on arrival 3- Coma. 2- No correct answer 2- Does not follow commands. 0=normal 3=Complete paralysis of one or both sides (absence of facial movement in the upper and lower face) 3=Bilateral hemianopia (blind including cortical blindness) 4- No movement. 4- No movement. 4- No movement. 4- No movement. 0=Absent 2- Severe to total sensory loss. 3=Mute, global aphasia; no usable speech or auditory comprehension 2=Severe; patient speech is so slurred as to be unintelligible in the absence of or our of proportion to any dysphagia, or is mute/anarthric 2- Profound hemiattention or Extinction to more than one modality Total: 38 Data: Results from last 7 days Lab Units 06/11/24 0443 HEMOGLOBIN A1C % 7.51* Results from last 7 days Lab Units 06/11/24 0443 CHOLESTEROL mg/dL 116 TRIGLYCERIDES mg/dL 144 HDL CHOLESTEROL mg/dL 40.1 Results from last 7 days Lab Units 06/11/24 0443 TSH uIU/mL 1.041 Imaging: CT head: 06/11/2024 Acute infarct involving the right MCA territory (ASPECTS 6). CTA head/Neck: 06/11/2024 * Nonvisualization of a superior branch of the right M2 artery when compared to the contralateral size without definitive stump identified. No distal reconstitution in this region is seen. * Severe narrowing of the the V1 and V4 segment of the right vertebral artery. * Full report to follow MRI brain: pending TTE: pending Assessment and Plan: 78 year old female with a history of HTN, DM II, HLD and hypothyroidism who was found to have an ischemic infarct of the right MCA territory at an outside hospital who presented as a transfer for possible thrombectomy. LKN at 5 PM on 06/10. OOW for TNK at OSH. Patient was intubated at the OSH for airway protection. Patient under arrival was comatose, not completely explained by the Right MCA stroke. Possible due to being on sedatives at the OSH, or concern for subclinical seizures. Patient is in NICU for close observation. Patient received CT head upon arrival and was found to have a ischemic stroke in right M2 distribution with aspects of 6. CTA showed a right MCA infarct however as per radiology no stump was found. CT perfusion was obtained and found to have the penumbra/infarct ratio almost 1. The mismatch was 3 ml. There was a concern for subclinical seizures in a setting of clinical exam disproportionate to Neuroimaging findings - keppra load was ordered and given. Ativan 2 mg was administered. Patient presented as comatose, however clinical exam continued to improve with time. AUTOMATIC STACKER: Ischemic Stroke of Right M2 Acuity: Acute Suspected Etiology: ICAD vs Cardioembolic (possible Afib on tele) -S/p Keppra 60mg/kg, c/w 750 BID -C/w ASA 81 mg -HI statin -cvEEG -MRI brain wo -Wean down sedation -HOB flat -Allow permissive SBP< 220; caution with hypotension - PT/OT/ST RESP: Acute Respiratory Failure Vent on Admission Day - Vent management per ICU - Wean when able CV: Essential hypertension Hypertensive Emergency - BP control, goal SBP <220 - Titrate oral agents - PRN labetalol RENAL: - continue to monitor ENDO: - SSI for goal FSBG 140-180 -Hba1c HEME: - continue to monitor ID: - continue to monitor Nutrition: - no acute concerns. Prophylaxis DVT: SCDs, SubQ heparin GI: Bowel regimen: senna Diet: NPO until speech does swallow eval Code Status: Full Code - confirmed with granddaughter Dispo: pending The patient was discussed with Dr. Garces. Please contact primary team with any further questions or concerns. Abiola Cabezas Adult Neurology | PGY1 [facility] Cosigned by Vivienne Pisano MD at 06/11/2024 9:53 AM MODEL ARTISTS' L ARTISTS' L ARTISTS' L ARTISTS' L ARTISTS' Associated attestation - Vivienne Pisano MD - 06/11/2024 9:53 AM MODEL ARTISTS' STROKE NEUROLOGY ATTENDING ATTESTATION I have personally seen and evaluated the patient on June 11, 2024, and I was present for see critical points of the encounter. I have discussed the case with and reviewed the provider note detailed above. I have personally viewed the patient's radiographic studies, laboratory tests, and medications. I agree with the above documented history, exam, assessment and plan. Please see note below for any additions and/or exceptions to the note above. 78 y/o female with a history of HTN, DM2, HLD and hypothyroidism who presented with complaints of right MCA syndrome after presenting to OSH. Initial exam at OSH is unclear, however, patient was noted to have significant exam changes and required intubation for airway protection. OOW for TNK at OSH. Non-con head CT/CTA at OSH showed early ischemic changes and R M2 LVO resulting in transfer for possible thrombectomy. Neuroimaging at [facility] showed established infarction with large core and minimal mismatch (3mL). Decision was made not to pursue thrombectomy given minimal penumbra. Patient was loaded with Keppra given exam and concern for subclinical seizures and she was placed on continuous EEG. Etiology is pending stroke work up. MRI brain, TTE, and extubation. Encounter took 40 minutes of total cumulative critical care time examining the patient at the bedside and in discussion regarding plan of care and addressing questions and concerns, reviewing the EMR and paper chart, reviewing diagnostic studies, laboratory values, and recommendations. I provided a substantive portion of the care of this patient. I personally performed the MDM for this encounter. Vivienne Pisano MD, MPH [employer], Vascular Neurology [facility] Cory [email or web address] Office contact: [phone] Stroke Clinic: [phone] Neurology [facility] Procedure Notes Date/Time Note Provider Source 2024-06-26 17:05:30 Procedure(s): ELECTRICAL CARDIOVERSION Pre-Procedure Diagnose(s): Persistent atrial fibrillation (HCC) Post-Procedure Diagnose(s): Persistent atrial fibrillation (HCC) Images from the original note were not included. PROCEDURE NOTE - DC CARDIOVERSION DATE OF PROCEDURE: 06/26/2024 REFERRING PHYSICIAN: Venkatesh Larson MD OPERATORS: Sharon Baker M.D. Diagnosis: Atrial fibrillation Procedure: DC cardioversion Deep sedation HISTORY: Isabel Henry is a 78 y.o. female with a history of stroke, and atrial fibrillation with RVR while in the hospital. She is here for DC cardioversion, and arrives to the lab in atrial fibrillation EKG/TELE: Irregular narrow complex tachycardia, rate 88 - 103 bpm PROCEDURE: The risks, benefits, alternatives and anticipated results of cardioversion with deep sedation were explained to the patient's family before the procedure. Risks explained include arrhythmia, respiratory distress or failure, need for CPR, . Written informed consent was obtained. Following, the patient was attached to noninvasive monitoring devices. Moderate Conscious Sedation was provided under my direct supervision with the sedation trained nurse using 1 mg of intravenous midazolam and 3 mg of IV etomidate over 20 minutes of the procedure. There were no complications. See hospital trained nurses sedation sheet I signed and dated for completed pre and post service. Transesophageal echocardiogram performed showed no evidence of left atrial or appendage thrombus. The cardioversion was then begun. The patient was put under deep sedation with no complications. DC cardioversion was successful with a single synchronized shock using an external defibrillator at 200J, with the patient sustaining sinus rhythm. There were no complications. The patient tolerated the procedure well, and was taken back to the room with no further event. Rest per the primary team. CONCLUSION Atrial fibrillation with successful cardioversion to sinus rhythm No complications No blood loss RECOMMENDATIONS 1. Monitor patient overnight overnight with extended recovery for continuous rhythm monitoring, careful assessment of intravascular fluid status. 2. Bed rest for 1 hour. 3. Resume cardiac diet. 4. Anticoagulation: Continue previously scheduled apixaban. In light of patient weight (60kg) and creatinine clearance, Apixaban dose should be decreased to 2.5mg. 5. Anti-arrhythmic agent: resume metoprolol. Decrease dose to 50mg via Gtube q12. 6. Rest per primary team. Sharon Baker M.D. Cardiac Electrophysiology [facility] Notes Date/Time Note Provider Source Referral ID Status Reason Start Date Expiration Date Visits Requested Visits Authorized [id number] Authorized Specialty Services Required 06/27/2024 12/24/2024 1 1 L ARTISTS' * Consultation (Routine) - Authorized Specialty Diagnoses / Procedures Referred By Contac t Referred To Contact Neurology Diagnoses Right middle cerebral artery stroke (HCC) Procedures [place] OFFICE/OUTPATIENT NEW HIGH MDM 60 MINUTES Keely Holden NP [id number] [place] [address] Phone: tel: fax: Referral ID Status Reason Start Date Expiration Date Visits Requested Visits Authorized [id number] Authorized Specialty Services Required 06/27/2024 12/24/2024 1 1 L ARTISTS' * Consultation (Routine) - Authorized Specialty Diagnoses / Procedures Referred By Contac t Referred To Contact Cardiology Diagnoses Persistent atrial fibrillation (HCC) Longstanding persistent atrial fibrillation (CMS/HCC) (HCC) Procedures [place] OFFICE/OUTPATIENT NEW HIGH [facility] 60 MINUTES Keely Holden NP [address] [place] [address] Phone: tel: fax: Sharon Baker MD [address] [place] [id number] Phone: tel: fax: Referral ID Status Reason Start Date Expiration Date Visits Requested Visits Authorized [id number] Authorized Specialty Services Required 06/27/2024 12/24/2024 1 1 L ARTISTS' [id number] 15:20:11* Auth/Cert (Routine) Specialty Diagnoses / Procedures Referred By Contac t Referred To Contact Diagnoses Right middle cerebral artery stroke (HCC) Acute intracranial hemorrhage (CMS/HCC) (HCC) ischemic stroke, LVO Procedures awaiting psc Maricel Martinez MD [address] [place] [address] Phone: tel: fax: [facility] ([facility]) [address] [place] [address] Phone: tel: Referral ID Status Reason Start Date Expiration Date Visits Re quested Visits Authorized [id number] 1 1 [facility] [id number] 15:20:11 [facility] [id number] 15:20:11* Audit-C Score Answer Date of Assessment Author 1 06/11/2024 5:17 AM Misha Castano RN * Intimate Partner Violence Question Answer Date of Assessment Author Within the last year, have y ou been humiliated or emotionally abused in other ways by your partner or ex-partner? No 06/11/2024 5:17 AM Sana Valadez RN Within the last year, have y ou been afraid of your partner or ex-partner? No 06/11/2024 5:17 AM Sana Castano R N Within the last year, have y ou been raped or forced to have any kind of sexual activity by your partner or ex-partner? No 06/11/2024 5:17 AM Sana Castano R N Within the last year, have y ou been kicked, hit, slapped, or otherwise physically hurt by your partner or ex-partner? No 06/11/2024 5:17 AM Sana Castano R N * * Calculated C-SSRS Risk Score (Lifetime/Recent) Answer Date of Assessment Author No Risk Indicated 06/11/2024 5:20 AM Sana Castano RN * [place] Suicide Severity Rating Scale (Screener/Recent Self-Report) Question Answer Date of Assessment Author 1. Wish to be (Past 1 Month) No 025 5:20 AM Sana Castano RN 2. Non-Specific Active Suici frederic Thoughts (Past 1 Month) No 06/11/2024 5:20 AM David Castano RN 6. Suicidal Behavior (Lifetime) No 5:20 AM Sana Castano RN [facility] [id number] 15:20:11* Shavon Dodd LMSW - 06/27/2024 12:17 PM MODEL ARTISTS' 02/01/25 1200 Discharge Planning Discharge Planning Comments [facility] called [facility] @ , no pecan picker, unable to LVM. DIEGO called [facility] liaison Rosibel @[phone], to obtain MOT, LVM. PT med ready, need to obtain MOT from SNF. Shavon Dodd LMSW Weekend/Afterhours DIEGO [id number] L ARTISTS' * Katarzyna Earl NP - 06/27/2024 8:29 AM MODEL ARTISTS' Images from the original note were not included. CARDIOLOGY DAILY PROGRESS NOTE Patient Name: Isabel Henry Date: 06/27/2024 HPI: Ms. Isabel Henry is a 78-year-old woman with past medical history of hypertension, hyperlipidemia, diabetes mellitus type 2, and hypothyroidism. The patient was admitted on 06/11/2024 with an acute CVA, and also noted to have atrial fibrillation with RVR, presumed to be new onset. EP Cardiology was consulted management with atrial fibrillation with RVR. Of note the patient has been confused since admission. Chart review does not reveal a documented history of atrial fibrillation or prior cardiac evaluation, on care everywhere. Currently, the patient's primary team is [facility]. Subjective: S/p SAYRA/DCCV on 06/26/24 with return to SR after 1 shock of 200joules. Pt remains confused and does not reliable follow commands. Medication List: Home cardiac medications including the dose, frequency along with new cardiac medications reviewed and discussed with patient in detail. Reiterated the indications and side effects of these medications and patient verbalized understanding. All questions answered. Current Facility-Administered Medications: acetaminophen (Tylenol) tablet 650 mg, 650 mg, Oral, q6h PRN, Kim Mitchell NP, 650 mg at 06/25/24 2204 amantadine (Symmetrel) solution 100 mg, 100 mg, Per G Tube, Daily, Concepción Mukherjee NP, 100 mg at 06/26/24 0829 amLODIPine (Norvasc) tablet 10 mg, 10 mg, Per G Tube, Daily, Concepcóin Mukherjee NP, 10 mg at 06/26/24 0829 apixaban (Eliquis) tablet 2.5 mg, 2.5 mg, Per G Tube, q12h SKYLA, Keely Holden NP atorvastatin (Lipitor) tablet 80 mg, 80 mg, Per G Tube, Daily, Concepción Mukherjee NP, 80 mg at 06/26/24 0829 bismuth subsalicylate (Pepto Bismol) 262 mg/15mL suspension 30 mL, 30 mL, Oral, 4x daily, Concepción Mukherjee NP, 30 mL at 06/26/24 2139 cefepime (Maxipime) 1 g in sterile water injection, 1 g, Intravenous, q12h, Keely Holden NP, 1 g at 06/27/24 0737 dextrose 50 % solution 12.5 g, 12.5 g, Intravenous, PRN, Toya Pitts MD dextrose 50 % solution 25 g, 25 g, Intravenous, PRN, Toya Pitts MD, 25 g at 06/26/24 1237 Enteral Free water Flush 60 mL, 60 mL, Nasogastric, q4h, Andrew Trivedi MD, 60 mL at 06/27/24 0615 Fibersource HN liquid 375 mL, 375 mL, Per PEG Tube, 4x daily, Keely Holden NP, 375 mL at 06/26/24 2140 glucagon injection 1 mg, 1 mg, Intramuscular, PRN, Toya Pitts MD hydrALAZINE (Apresoline) tablet 100 mg, 100 mg, Per G Tube, TID, Concepción Mukherjee NP, 100 mg at 06/26/24 1903 insulin glargine (Lantus) injection 25 Units, 25 Units, Subcutaneous, Every evening, Toya Pitts MD, 25 Units at 06/25/24 1720 insulin lispro (Humalog, Admelog) injection 16 Units, 16 Units, Subcutaneous, 4x daily, Toya Pitts MD, 16 Units at 06/26/24 0830 insulin lispro (HumaLOG, Admelog) injection 2-8 Units, 2-8 Units, Subcutaneous, 4x daily PRN, Toya Pitts MD, 6 Units at 06/25/24 1720 ipratropium-albuterol (Duo-Neb) 0.5-2.5 mg/3 mL nebulizer solution 3 mL, 3 mL, Nebulization, q6h PRN, Kim Mitchell NP labetalol injection 10 mg, 10 mg, Intravenous, q1h PRN, Farhad Bryant NP, 10 mg at 06/23/24 0006 lansoprazole (Prevacid) suspension 30 mg, 30 mg, Per G Tube, Daily before breakfast, Concepción Mukherjee NP, 30 mg at 06/27/24 0737 levothyroxine (Synthroid, Levoxyl) tablet 100 mcg, 100 mcg, Per G Tube, Daily 630, Concepción Mukherjee NP, 100 mcg at 06/27/24 0613 lisinopril tablet 20 mg, 20 mg, Per G Tube, BID, Concepción Mukherjee NP, 20 mg at 06/26/24 1851 LORazepam (Ativan) injection 1 mg, 1 mg, Intravenous, q4h PRN, Loyd De Leon MD metoprolol tartrate (Lopressor) injection 5 mg, 5 mg, Intravenous, q5 min PRN, Godwin Payne NP, 5 mg at 06/23/24 2050 metoprolol tartrate (Lopressor) tablet 100 mg, 100 mg, Per G Tube, q6h SKYLA, Kim Mitchell NP, 100 mg at 06/27/24 0607 metroNIDAZOLE (Flagyl) suspension 250 mg, 250 mg, Per G Tube, q6h, Concepción Mukherjee NP, 250 mg at 06/27/24 0609 sodium chloride (NS) 0.9 % flush 10 mL, 10 mL, Intravenous, q12h SKYLA, Kim Mitchell NP, 10 mL at 06/26/24 2140 sodium chloride (NS) 0.9 % flush 10 mL, 10 mL, Intravenous, PRN, iKm Ortiz Manaay, ELIDA tetracycline capsule 500 mg, 500 mg, Per G Tube, BID AC, Concepción Mukherjee, ELIDA, 500 mg at 06/26/24 1850 Labs: Pertinent Labs : Lab Results Component Value Date WBC 7.37 06/27/2024 Hgb 10.9 06/27/2024 Hct 33.1 (L) 06/27/2024 Plt Count 525 (H) 06/27/2024 Lab Results Component Value Date Sodium Lvl 140 06/27/2024 Potassium Lvl 4.4 06/27/2024 Chloride Lvl 106 06/27/2024 CO2 Lvl 23.0 06/27/2024 BUN 40 (H) 06/27/2024 Creatinine Lvl 1.17 (H) 06/27/2024 Glucose Lvl 96 06/27/2024 POC Glu 87 06/27/2024 Lab Results Component Value Date Calcium Lvl 8.1 (L) 06/27/2024 Magnesium 2.08 06/26/2024 Phosphorus Lvl 3.4 06/26/2024 Micro: Susceptibility data from last 90 days. Collected Organism Quantity Specimen Info Ampicillin Ampicillin/Sulbactam Cefepime Ceftriaxone Cefuroxime 06/23/24 2326 Enterobacter cloacae complex >=100,000 CFU/mL Urine, Clean Catch R R S R R Collected Organism Quantity Specimen Info Ciprofloxacin GentamicinSusceptibility Levofloxacin Meropenem Minocycline 06/23/24 2326 Enterobacter cloacae complex >=100,000 CFU/mL Urine, Clean Catch S S S S S Collected Organism Quantity Specimen Info NitrofurantoinPiperacillin/Tazobactam Tetracycline Tobramycin 06/23/24 2326 Enterobacter cloacae complex >=100,000 CFU/mL Urine, Clean Catch I S S S Collected Organism Quantity Specimen Info Trimethoprim/Jvxpbyurgpeampop18/28/25 2326 Enterobacter cloacae complex >=100,000 CFU/mL Urine, Clean Catch S Imaging: EKG:Encounter Date: 06/11/24 ECG 12 lead Result Value Ventricular Rate 63 Atrial Rate 63 NH Interval 116 QRS Duration 74 QT/QTc 432 QTc Calculation 442 P-Ruston 3 R-Ruston 19 T-Ruston 52 Impression SINUS RHYTHM WITH SINUS ARRHYTHMIA NONSPECIFIC T WAVE ABNORMALITY(IES) ABNORMAL ECG WHEN COMPARED WITH ECG OF 21-JUN-2024 22:41, SINUS RHYTHM HAS REPLACED ATRIAL FIBRILLATION VENT. RATE HAS DECREASED BY 63 BPM NONSPECIFIC T WAVE ABNORMALITY NOW EVIDENT IN LATERAL LEADS Intake and Output: Intake/Output Summary (Last 24 hours) at 06/27/2024 0829Last data filed at 06/27/2024 0600 Gross per 24 hour Intake -- Output 500 ml Net -500 ml Physical Exam: Vital Signs: 54:00 AM 06/27/2024 4:30 AM 06/27/2024 5:30 AM 06/27/2024 6:00 AM 06/27/2024 7:00 AM 06/27/2024 7:45 AM 06/27/2024 8:00 AM Vitals Systolic 145 147 134 149 Diastolic 66 64 65 65 Heart Rate 71 72 71 65 Temp 37.3 ?C (99.1 ?F) 37.3 ?C (99.1 ?F) Resp 20 18 32 20 20 PHYSICAL EXAMINATION:GENERAL/CONSTITUTIONAL: The patient appears confused, does not answer questions appropriately or follow commands reliably CARDIOVASCULAR: SR rate 65bpm. S1, S2. No S3. LUNGS: Diminished bibasilar breath sounds. The patient appears comfortable on room air. SpO2 96% ABDOMEN: Soft, nontender, nondistended. No guarding. No rebound tenderness. EXTREMITIES: No lower extremity edema appreciated. NEURO: For full neurologic examination, please refer to Stroke Team notes. ASSESSMENT AND PLAN:Ms. Henry is a 78-year-old woman with past medical history of hypertension, hyperlipidemia, diabetes mellitus type 2, and hypothyroidism, presented with acute CVA, found to have atrial fibrillation with RVR. EP Cardiology consulted for management of atrial fibrillation with RVR. IMPRESSION:Atrial fibrillation with RVR, believed to be new onset. Acute cerebrovascular accident. Essential hypertension. Diabetes mellitus type 2. Dysphagia. Hyperlipidemia. Aspiration pneumonia. Question of urinary tract infection. Positive influenza A. PLAN: Atrial fibrillation with RVR, onset unknown, but presumed to be recent.- No documented history of previous atrial fibrillation. - Echocardiogram ejection fraction ~40% to 45%, dilated LA. - On metoprolol 100mg q6 hours. Recommend decreasing Metoprolol to 50mg PO Q12h (via GT) - CHADS2-VASc score at least 5, currently on Eliquis 2.5mg Po Q12H - s/p SAYRA, DCCV on 06/26/24 with conversion to SR after one shock with 200joules 2. Essential hypertension.-Patient on lisinopril, metoprolol tartrate, amlodipine and hydralazine. -Defer to stroke team for BP goals 3. Hyperlipidemia, on statin. Recommendations: Successful conversion to SR wi DCCV on 06/26/24. Decrease Metoprolol to 50mg PO Q12H via G-tube, continue Eliquis at 2.5mg PO Q12H Case discussed with Dr. Baker, who agrees with above assessment and plan of care. Signature:Katarzyna Earl, MSN, COMMERCIAL PROJECT MANAGER, ACNP- Department of Cardiology Contact: [facility] Secure Chat L ARTISTS' * Venkatesh Larson MD - 06/26/2024 10:27 PM MODEL ARTISTS' [facility] Query Clarification Progress Note As related to the inpatient hospital stay starting on 06/11/2024, 1:10 AM. I have reviewed the patients medical record and the following accurately represents the patients current condition. PROVIDER RESPONSE TEXT: Acute kidney injury due to ATN Query Created By : La Hines, 06/23/2024, 9:55 AM L ARTISTS' * Toya Pitts MD - 06/26/2024 4:40 PM [facility]DEL [facility]' Brief endocrinology note Assessment: The patient is a 78 y.o. female w PMH of HTN, DM2, HLD, afib, and hypothyroidism who was found to have an ischemic infarct of the R MCA territory at an OSH and presented as a transfer for possible thrombectomy. OOW for TNK at OSH. Also was comatose on arrival with concern for subclinical seizures initially. Extubated 06/11 and PEG tube placed 06/18. Endocrinology consulted for glycemic control. Problem list: #Type 2 Diabetes Mellitus - Home medications: Glimepiride 2 mg every day, Metformin 500 mg BID - A1C 7.51 on 06/11/24 - Now on bolus tube feeds fibersource HN 375ml 4x daily. (9AM, 1PM, 5PM, 9PM) #Hypothyroidism - TSH 1.041 on arrival on 06/11/24 - In care everywhere, labs from 07/16/2023: TSH 8.710, free T4 1.04. At that time was taking levothyroxine 125 mcg daily - Currently on levothyroxine 100 mcg daily this admission 06/26. Drop of BG this morning to 39, s/p dextrose 50 Spoke to the nurse for this significant drop, sounds like the pre meal insulin for 9:00 am was given although tube feed was on hold. Recommendations: - Continue lantus 25 units daily - Continue lispro 16 units pre-meal (4 times a day right before bolus tube feeds) - Please make sure she is receiving pre-meal Lispro before every bolus feed - Continue MD SSI 4 times daily (lispro Med ICF (2:50 for BG >150)) - Please make sure MD SSI is timed to match the tube feed timings -Please if tube feed on hold, Do not give pre-meal insulin and manage only with lantus plus ISS Plan was discussed with Dr. Leonardo. Thank you for the opportunity to participate in the care of this patient. Nicole continue to follow. Please page with any questions or concerns. Toya Gong Endocrinology fellow/[email or web address] Pager [phone] Cosigned by Nikkie Cochran MD at 06/27/2024 9:24 AM CST L ARTISTS' L ARTISTS' Associated attestation - Nikkie Cochran MD - 06/27/2024 9:24 AM [facility]' Discussed with fellow. Agree with plan in fellow's note. Nikkie Cochran * Shira Hannon, OT - 06/26/2024 1:50 PM [facility]DEL [facility]' Treatment Session Note Patient Name: Isabel Henry Today's Date: 06/26/2024 Preferred Language: Kyrgyz Assessment & Plan Assessment: L WHFO fabricated today in resting position with wrist in ~20* extension, MCPs ~35* flexion, and Ips in ~10 degrees flexion. Thumb in ~30* radial/palmar abduction with proximal forearm trough flared with 4 straps (prox forearm, wrist, digits, and thumb). Manual stretch of L elbow, wrist and digits during orthotic fabrication with approximation of shoulder joint for proprioceptive input. Pt tolerates fabrication well, does not verbalize throughout session, and continues to have no volitional movement in LUE. OT Assessment Results: Impaired ADL status, Impaired upper extremity strength, Impaired cognition, Impaired endurance, Impaired functional mobility, Impaired left upper extremity, Impaired trunk control for functional activities Medical Staff Made Aware: Yes Precautions: Medical Precautions: Contact, Droplet Plan: Treatment Plan/Goals Established with Patient/Caregiver: Yes Subjective Nonverbal during session Pain: Pain Assessment: Castaneda-Romano FACES (06/26/2024 1:50 PM) 0/10 Objective Orthotic fabrication today to promote functional positioning of UE. See Assessment for orthotic details. Pt then transferred to air bed for improved pressure relief, dependent. RN educated on wear, care, and schedule of orthotic. Mobility/Transfers: Transfer Transfer 1 Technique 1: (dependent lateral slide t/f) Trials/Comments 1: assisted RN with t/f'ing pt from bed>bed via dependent lateral slide t/f Transfer To/From: (bed to bed) Treatment Manual Therapy Manual Therapy Time Entry: 15 Manual Therapy Activity 1: Maual therapy to LUE during orthotic fabrication Orthotics: Orthotics Properties: 06/26/24 1350 Orthotics 06/26/24 Left Hand Placement Date/Time: 06/26/24 1400 Orthotic Orientation: Left Orthotic Location: Hand Wrist/Hand/Finger Orthotics Design: WHFO Orthotic Type: Static Fabricated or Pre-Fabricated: Custom Placed by: QASIM Omalley Patient Tolerance: Tolerat... Orthotic Details LUE WHFO Actions Taken Fabrication;Orthosis education Orthotic Wearing Schedule (4 on, 2 off, at night) Orthotic Purpose Maintain/promote functional positioning AM-PAC Daily Activity: Putting on and taking off regular lower body clothing: Total Bathing (including washing, rinsing, drying): Total Toileting, which includes using toilet, bedpan or urinal: Total Putting on and taking off regular upper body clothing: A Lot Taking care of personal grooming such as brushing teeth: A Lot Eating Meals: A Lot AM-PAC Daily Activity Raw Score: 9 Mobility Highest Level of Mobility Performed (JH-HLM): Bed activity Patient Education: Education Documentation Orthotic/Prosthetic Management, taught by Shira Hannon OT at 06/26/2024 3:49 PM. Learner: Patient Readiness: Acceptance Method: Explanation Response: No Evidence of Learning Education Comments No comments found. Goals: Encounter Goals Encounter Goals (Active) Pt will tolerate sitting EOB for > 10 minutes with Min A and use of one UE for support in preparation for OOB activity Start: 06/12/24 Expected End: 06/27/24 Pt will complete bed to toilet transfer to [facility] with Min A using AE as needed in preparation for household ambulation Start: 06/12/24 Expected End: 06/27/24 Pt will complete upper and lower body dressing task with Mod A using AE as needed. Start: 06/12/24 Expected End: 06/27/24 Patient will don UE orthotic with Mod A assist in order to promote functional positioning of UE. Start: 06/12/24 Expected End: 06/27/24 Treatment Note: If this is the last documented treatment, then it will signify discharge from acute care prior to discharge from the therapy service and will serve as the discharge summary. Shira Hannon OT L ARTISTS' * Gerson Guardado LMSW - 06/26/2024 12:23 PM [facility] 06/26/24 1200 Discharge Planning Patient expects to be discharged to: [facility] Expected Discharge Disposition SNF Discharge Planning Comments Sw spoke with Rosibel ([phone]) and she said that patient will be able to discharge on 06/27. She said patient's insurance would be switching to [facility] [employer], so she would need the most up-to-date clinicals possible. PASSR has been sent to facility. [facility] on will call. L ARTISTS' * Maisha Adams CCC-[facility] - 06/26/2024 10:08 AM [facility]' Speech-Language Pathology Encounter Note Patient Name: Isabel Henry Today's Date: 06/26/2024 Missed Treatment Time and Reason Per RN, pt sound asleep in bed. Pt continues to remain confused and not following commands. [facility] will follow for dysphagia management when pt's status allows. Maisha Adams CCC-[facility] L ARTISTS' * Katarzyna Earl NP - 06/26/2024 9:14 AM [facility]' Images from the original note were not included. CARDIOLOGY DAILY PROGRESS NOTE Patient Name: Isabel Henry Date: 06/26/2024 HPI: Ms. Isabel Henry is a 78-year-old woman with past medical history of hypertension, hyperlipidemia, diabetes mellitus type 2, and hypothyroidism. The patient was admitted on 06/11/2024 with an acute CVA, and also noted to have atrial fibrillation with RVR, presumed to be new onset. EP Cardiology was consulted management with atrial fibrillation with RVR. Of note the patient has been confused since admission. Chart review does not reveal a documented history of atrial fibrillation or prior cardiac evaluation, on care everywhere. Currently, the patient's primary team is [facility]roke. Subjective: No acute events overnight. Pt remains confused, does not consistently/reliable follow commands Medication List: Home cardiac medications including the dose, frequency along with new cardiac medications reviewed and discussed with patient in detail. Reiterated the indications and side effects of these medications and patient verbalized understanding. All questions answered. Current Facility-Administered Medications: acetaminophen (Tylenol) tablet 650 mg, 650 mg, Oral, q6h PRN, Kim Mitchell NP, 650 mg at 06/25/24 2204 amantadine (Symmetrel) solution 100 mg, 100 mg, Per G Tube, Daily, Concepción Mukherjee NP, 100 mg at 06/26/24 0829 amLODIPine (Norvasc) tablet 10 mg, 10 mg, Per G Tube, Daily, Concepción Mukherjee NP, 10 mg at 06/26/24 0829 apixaban (Eliquis) tablet 5 mg, 5 mg, Per G Tube, q12h SKYLA, Concepción Mukherjee NP, 5 mg at 06/26/24 08 atorvastatin (Lipitor) tablet 80 mg, 80 mg, Per G Tube, Daily, Concepción Mukherjee NP, 80 mg at 06/26/24 0829 bismuth subsalicylate (Pepto Bismol) 262 mg/15mL suspension 30 mL, 30 mL, Oral, 4x daily, Concepción Mukherjee NP, 30 mL at 06/26/24 0831 cefTRIAXone (Rocephin) 1 g in sterile water injection, 1 g, Intravenous, q24h, Kim Mitchell NP, 1 g at 06/26/24 0128 dextrose 50 % solution 12.5 g, 12.5 g, Intravenous, PRN, Toya Pitts MD dextrose 50 % solution 25 g, 25 g, Intravenous, PRN, Toya Pitts MD Enteral Free water Flush 60 mL, 60 mL, Nasogastric, q4h, Andrew Trivedi MD, 60 mL at 06/26/24 0615 Fibersource HN liquid 375 mL, 375 mL, Per PEG Tube, 4x daily, Andrew Trivedi MD, 375 mL at 06/25/24 2024 glucagon injection 1 mg, 1 mg, Intramuscular, PRN, Toya Pitts MD hydrALAZINE (Apresoline) tablet 100 mg, 100 mg, Per G Tube, TID, Concepción Mukherjee NP, 100 mg at 06/26/24 0829 insulin glargine (Lantus) injection 25 Units, 25 Units, Subcutaneous, Every evening, Toya Pitts MD, 25 Units at 06/25/24 1720 insulin lispro (Humalog, Admelog) injection 16 Units, 16 Units, Subcutaneous, 4x daily, Toya Pitts MD, 16 Units at 06/26/24 0830 insulin lispro (HumaLOG, Admelog) injection 2-8 Units, 2-8 Units, Subcutaneous, 4x daily PRN, Toya Pitts MD, 6 Units at 06/25/24 1720 ipratropium-albuterol (Duo-Neb) 0.5-2.5 mg/3 mL nebulizer solution 3 mL, 3 mL, Nebulization, q6h PRN, Kim Mitchell NP labetalol injection 10 mg, 10 mg, Intravenous, q1h PRN, Farhad Bryant NP, 10 mg at 06/23/24 0006 lansoprazole (Prevacid) suspension 30 mg, 30 mg, Per G Tube, Daily before breakfast, Concepción Mukherjee NP, 30 mg at 06/26/24 0830 levothyroxine (Synthroid, Levoxyl) tablet 100 mcg, 100 mcg, Per G Tube, Daily 630, Concepción Mukherjee NP, 100 mcg at 06/26/24 0559 lisinopril tablet 20 mg, 20 mg, Per G Tube, BID, Concepción Mukherjee NP, 20 mg at 06/26/24 0829 LORazepam (Ativan) injection 1 mg, 1 mg, Intravenous, q4h PRN, Loyd De Leon MD metoprolol tartrate (Lopressor) injection 5 mg, 5 mg, Intravenous, q5 min PRN, Godwin Payne NP, 5 mg at 06/23/24 2050 metoprolol tartrate (Lopressor) tablet 100 mg, 100 mg, Per G Tube, q6h SKYLA, Kim Mitchell NP, 100 mg at 06/26/24 0559 metroNIDAZOLE (Flagyl) suspension 250 mg, 250 mg, Per G Tube, q6h, Concepción Mukherjee NP, 250 mg at 06/26/24 0339 sodium chloride (NS) 0.9 % flush 10 mL, 10 mL, Intravenous, q12h SKYLA, Kim Mitchell NP, 10 mL at 06/26/24 0830 sodium chloride (NS) 0.9 % flush 10 mL, 10 mL, Intravenous, PRN, Kim Mitchell NP tetracycline capsule 500 mg, 500 mg, Per G Tube, BID AC, Concepción Mukherjee MAILS SUPERVISOR, 500 mg at 06/26/24 0829 Labs: Pertinent Labs : Lab Results Component Value Date WBC 8.28 06/26/2024 Hgb 11.3 06/26/2024 Hct 34.9 06/26/2024 Plt Count 509 (H) 06/26/2024 Lab Results Component Value Date Sodium Lvl 141 06/26/2024 Potassium Lvl 4.8 (H) 06/26/2024 Chloride Lvl 107 06/26/2024 CO2 Lvl 22.5 06/26/2024 BUN 49 (H) 06/26/2024 Creatinine Lvl 1.25 (H) 06/26/2024 Glucose Lvl 177 (H) 06/26/2024 POC Glu 287 (H) 06/25/2024 Lab Results Component Value Date Calcium Lvl 8.3 06/26/2024 Magnesium 2.08 06/26/2024 Phosphorus Lvl 3.4 06/26/2024 Micro: Susceptibility data from last 90 days. Collected Organism Quantity Specimen Info 06/23/24 2326 Gram Negative Rods >=100,000 CFU/mL Urine, Clean Catch Imaging: EKG:Encounter Date: 06/11/24 ECG 12 lead Result Value Ventricular Rate 126 Atrial Rate 166 QRS Duration 82 QT/QTc 336 QTc Calculation 486 R-Ruston 17 T-Ruston 55 Impression ATRIAL FIBRILLATION WITH A RAPID VENTRICULAR RESPONSE ABNORMAL ECG WHEN COMPARED WITH ECG OF 12-JUN-2024 23:20, NO SIGNIFICANT CHANGE WAS FOUND Intake and Output: Intake/Output Summary (Last 24 hours) at 06/26/2024 0914Last data filed at 06/26/2024 0400 Gross per 24 hour Intake 1425 ml Output 654 ml Net 771 ml Physical Exam: Vital Signs: 54:30 AM 06/26/2024 5:01 AM 06/26/2024 5:30 AM 06/26/2024 6:00 AM 06/26/2024 7:00 AM 06/26/2024 7:51 AM 06/26/2024 8:00 AM Vitals Systolic 170 184 178 172 175 Diastolic 78 78 79 76 74 Heart Rate 89 88 88 84 81 Temp 36.4 ?C (97.5 ?F) 36.9 ?C (98.4 ?F) Resp 22 23 23 24 22 20 PHYSICAL EXAMINATION:GENERAL/CONSTITUTIONAL: The patient appears confused, oes not answer questions appropriately or follow commands reliably CARDIOVASCULAR: S1, S2. No S3. Irregular irregular rhythm with a rate on telemetry ranging from 79-86bpm, atrial fibrillation. LUNGS: Diminished bibasilar breath sounds. The patient appears comfortable on room air. SpO2 98% ABDOMEN: Soft, nontender, nondistended. No guarding. No rebound tenderness. EXTREMITIES: No lower extremity edema appreciated. NEURO: For full neurologic examination, please refer to Stroke Team notes. ASSESSMENT AND PLAN:Ms. Henry is a 78-year-old woman with past medical history of hypertension, hyperlipidemia, diabetes mellitus type 2, and hypothyroidism, presented with acute CVA, found to have atrial fibrillation with RVR. EP Cardiology consulted for management of atrial fibrillation with RVR. IMPRESSION:Atrial fibrillation with RVR, believed to be new onset. Acute cerebrovascular accident. Essential hypertension. Diabetes mellitus type 2. Dysphagia. Hyperlipidemia. Aspiration pneumonia. Question of urinary tract infection. Positive influenza A. PLAN: Atrial fibrillation with RVR, onset unknown, but presumed to be recent.- No documented history of previous atrial fibrillation. - Echocardiogram showed decreased ejection fraction about 40% to 45% with dilated LA. No significant valvular disease. Reduced ejection fraction could be related to uncontrolled hypertension or the patient's arrhythmias - TSH unremarkable. - On metoprolol 100mg q6 hours. - CHADS2-VASc score at least 5, currently on Eliquis. - SAYRA and DCCV is recommended. Ms. Henry is not able to provide consent given her stroke, dysarthria and altered mental status. - The plan for SAYRA/DCCV has been discussed with the patients daughter Sabrina Bonilla and granddaughter Will Bennett by Dr. Baker, both the daughter and granddaughter report that they understand the reason for the procedure as well as risks and benefits and consent via telephone for procedures. Consent on chart - SAYRA, DCCV ordered for 06/26/24 and to be done by Dr. Baker. Pt to be NPO for procedure. 2. Essential hypertension.- Blood pressure may require better control. Blood pressure goals dictated by Stroke Team. - Patient on lisinopril, metoprolol tartrate, amlodipine and hydralazine. - Monitor blood pressure closely and adjust blood pressure medication as deemed necessary for blood pressure control. -Defer to stroke team. 3. Hyperlipidemia, on statin. Recommendations: SAYRA with possible cardioversion with Dr. Baker on 06/26/24.NPO Case discussed with Dr. Baker, who agrees with above assessment and plan of care. Signature:Katarzyna Earl NP L ARTISTS' * Katarzyna Earl NP - 06/25/2024 11:57 AM MODEL ARTISTS' Images from the original note were not included. CARDIOLOGY DAILY PROGRESS NOTE Patient Name: Isabel Henry Date: 06/25/2024 HPI: Ms. Isabel Henry is a 78-year-old woman with past medical history of hypertension, hyperlipidemia, diabetes mellitus type 2, and hypothyroidism. The patient was admitted on 06/11/2024 with an acute CVA, and also noted to have atrial fibrillation with RVR, presumed to be new onset. EP Cardiology was consulted management with atrial fibrillation with RVR. Of note the patient has been confused since admission. Chart review does not reveal a documented history of atrial fibrillation or prior cardiac evaluation, on care everywhere. Currently, the patient's primary team is [facility]. Subjective: No acute events overnight. Pt is confused and does not answer questions appropriately Medication List: Home cardiac medications including the dose, frequency along with new cardiac medications reviewed and discussed with patient in detail. Reiterated the indications and side effects of these medications and patient verbalized understanding. All questions answered. Current Facility-Administered Medications: acetaminophen (Tylenol) tablet 650 mg, 650 mg, Oral, q6h PRN, Kim Mitchell NP, 650 mg at 06/24/24 2155 amantadine (Symmetrel) solution 100 mg, 100 mg, Per G Tube, Daily, Concepción Mukherjee NP, 100 mg at 06/25/24 0804 amLODIPine (Norvasc) tablet 10 mg, 10 mg, Per G Tube, Daily, Concepción Mukherjee NP, 10 mg at 06/25/24 0804 apixaban (Eliquis) tablet 5 mg, 5 mg, Per G Tube, q12h SKYLA, Concepción Mukherjee NP, 5 mg at 06/25/24 0804 atorvastatin (Lipitor) tablet 80 mg, 80 mg, Per G Tube, Daily, Concepción Mukherjee NP, 80 mg at 06/25/24 0803 bismuth subsalicylate (Pepto Bismol) 262 mg/15mL suspension 30 mL, 30 mL, Oral, 4x daily, Concepción Mukherjee NP, 30 mL at 06/25/24 0802 caffeine half tablet 100 mg, 100 mg, Oral, Daily, Concepción Mukherjee NP, 100 mg at 06/25/24 1007 cefTRIAXone (Rocephin) 1 g in sterile water injection, 1 g, Intravenous, q24h, Kim Mitchell NP, 1 g at 06/25/24 0158 dextrose 50 % solution 12.5 g, 12.5 g, Intravenous, PRN, Toya Pitts MD dextrose 50 % solution 25 g, 25 g, Intravenous, PRN, Toya Pitts MD Docusate Sodium oral liquid 100 mg, 100 mg, Per G Tube, q12h, Shae Chang, ELIDA, 100 mg at 06/21/24 0047 Enteral Free water Flush 60 mL, 60 mL, Nasogastric, q4h, Andrew Trivedi MD, 60 mL at 06/25/24 1014 Fibersource HN liquid 375 mL, 375 mL, Per PEG Tube, 4x daily, Andrew Trivedi MD, 375 mL at 06/25/24 1007 glucagon injection 1 mg, 1 mg, Intramuscular, PRN, Toyatyler Pitts MD hydrALAZINE (Apresoline) tablet 100 mg, 100 mg, Per G Tube, TID, Concepción Mukherjee NP insulin glargine (Lantus) injection 25 Units, 25 Units, Subcutaneous, Every evening, Toya Pitts MD, 25 Units at 06/24/24 1708 insulin lispro (Humalog, Admelog) injection 16 Units, 16 Units, Subcutaneous, 4x daily, Toya Pitts MD, 16 Units at 06/25/24 1006 insulin lispro (HumaLOG, Admelog) injection 2-8 Units, 2-8 Units, Subcutaneous, 4x daily PRN, Toya Pitts MD, 2 Units at 06/25/24 0640 ipratropium-albuterol (Duo-Neb) 0.5-2.5 mg/3 mL nebulizer solution 3 mL, 3 mL, Nebulization, q6h PRN, Kim Mitchell NP labetalol injection 10 mg, 10 mg, Intravenous, q1h PRN, Farhad Bryant NP, 10 mg at 06/23/24 0006 lansoprazole (Prevacid) suspension 30 mg, 30 mg, Per G Tube, Daily before breakfast, Concepción Mukherjee NP, 30 mg at 06/25/24 0803 levothyroxine (Synthroid, Levoxyl) tablet 100 mcg, 100 mcg, Per G Tube, Daily 630, Concepción Mukherjee NP, 100 mcg at 06/25/24 0618 lisinopril tablet 20 mg, 20 mg, Per G Tube, BID, Concepción Mukherjee NP, 20 mg at 06/25/24 0804 LORazepam (Ativan) injection 1 mg, 1 mg, Intravenous, q4h PRN, Loyd De Leon MD metoprolol tartrate (Lopressor) injection 5 mg, 5 mg, Intravenous, q5 min PRN, Godwin Payne NP, 5 mg at 06/23/242049 metoprolol tartrate (Lopressor) tablet 100 mg, 100 mg, Per G Tube, q6h SKYLA, Kim Mitchell NP, 100 mg at 06/25/24 0618 metroNIDAZOLE (Flagyl) suspension 250 mg, 250 mg, Per G Tube, q6h, Concepción Mukherjee NP, 250 mg at 06/25/24 1007 senna (Senokot) oral solution 10 mL, 10 mL, Per PEG Tube, q12h, Concepción Mukherjee NP sodium chloride (NS) 0.9 % flush 10 mL, 10 mL, Intravenous, q12h SKYLA, Kim Mitchell, ELIDA, 10 mL at 06/25/24 0805 sodium chloride (NS) 0.9 % flush 10 mL, 10 mL, Intravenous, PRN, Kim Mitchell, ELIDA tetracycline capsule 500 mg, 500 mg, Per G Tube, BID AC, Concepción Mukherjee, ELIDA, 500 mg at 06/25/24 0804 Labs: Pertinent Labs : Lab Results Component Value Date WBC 8.99 06/25/2024 Hgb 11.1 06/25/2024 Hct 34.6 06/25/2024 Plt Count 553 (H) 06/25/2024 Lab Results Component Value Date Sodium Lvl 143 06/25/2024 Potassium Lvl 4.9 (H) 06/25/2024 Chloride Lvl 109 (H) 06/25/2024 CO2 Lvl 23.8 06/25/2024 BUN 49 (H) 06/25/2024 Creatinine Lvl 1.32 (H) 06/25/2024 Glucose Lvl 182 (H) 06/25/2024 POC Glu 185 (H) 06/25/2024 Lab Results Component Value Date Calcium Lvl 8.3 06/25/2024 Magnesium 2.07 06/23/2024 Phosphorus Lvl 3.1 06/23/2024 Micro: No results found for the last 90 days. Imaging: @IMAGES@ EKG:Encounter Date: 06/11/24 ECG 12 lead Result Value Ventricular Rate 126 Atrial Rate 166 QRS Duration 82 QT/QTc 336 QTc Calculation 486 R-Ruston 17 T-Ruston 55 Impression ATRIAL FIBRILLATION WITH A RAPID VENTRICULAR RESPONSE ABNORMAL ECG WHEN COMPARED WITH ECG OF 12-JUN-2024 23:20, NO SIGNIFICANT CHANGE WAS FOUND Intake and Output: Intake/Output Summary (Last 24 hours) at 06/25/2024 1157Last data filed at 06/25/2024 0800 Gross per 24 hour Intake 5520 ml Output 150 ml Net 5370 ml Physical Exam: Vital Signs: 57:00 AM 06/25/2024 7:30 AM 06/25/2024 8:00 AM 06/25/2024 9:00 AM 06/25/2024 10:00 AM 06/25/2024 10:07 AM 06/25/2024 11:00 AM Vitals Systolic 201 174 170 152 Diastolic 83 77 74 65 Heart Rate 103 94 92 94 92 Temp 36.9 ?C (98.4 ?F) 36.8 ?C (98.2 ?F) Resp 20 20 27 21 PHYSICAL EXAMINATION:GENERAL/CONSTITUTIONAL: The patient appears confused and does not answer questions appropriately CARDIOVASCULAR: S1, S2. No S3. Irregular irregular rhythm with a rate on telemetry ranging from 97-110bpm, atrial fibrillation. LUNGS: Diminished bibasilar breath sounds. The patient appears comfortable on room air. SpO2 96% ABDOMEN: Soft, nontender, nondistended. No guarding. No rebound tenderness. EXTREMITIES: No lower extremity edema appreciated. NEURO: For full neurologic examination, please refer to Stroke Team notes. ASSESSMENT AND PLAN:Ms. Henry is a pleasant 78-year-old female with past medical history of hypertension, hyperlipidemia, diabetes mellitus type 2, and hypothyroidism, presented with acute CVA, found to have atrial fibrillation with RVR. EP Cardiology consulted for management of atrial fibrillation with RVR. IMPRESSION:Atrial fibrillation with RVR, believed to be new onset. Acute cerebrovascular accident. Essential hypertension. Diabetes mellitus type 2. Dysphagia. Hyperlipidemia. Aspiration pneumonia. Question of urinary tract infection. Positive influenza A. PLAN: Atrial fibrillation with RVR, onset unknown, but presumed to be recent.- No documented history of previous atrial fibrillation. - Echocardiogram showed decreased ejection fraction about 40% to 45% with dilated LA. No significant valvular disease. Reduced ejection fraction could be related to uncontrolled hypertension or the patient's arrhythmias - TSH unremarkable. - On metoprolol 100mg q6 hours. - CHADS2-VASc score at least 5, currently on Eliquis. - Recommend SAYRA and possible cardioversion if no thrombus noted on SAYRA. - SAYRA, DCCV ordered for 06/26/24 and to be done by Dr. Baker - NPO after midnight 2. Essential hypertension.- Blood pressure may require better control. Blood pressure goals dictated by Stroke Team. - Patient on lisinopril, metoprolol tartrate, amlodipine and hydralazine. - Monitor blood pressure closely and adjust blood pressure medication as deemed necessary for blood pressure control. -Defer to stroke team. 3. Hyperlipidemia, on statin. Recommendations: SAYRA with possible cardioversion with Dr. Baker on 06/26/24.NPO after midnight. Case discussed with Dr. Baker, who agrees with above assessment and plan of care. Signature:Katarzyna Earl NP L ARTISTS' * Shira Hannon, OT - 06/25/2024 11:20 AM MODEL ARTISTS' Treatment Session Note Patient Name: Isabel Henry Today's Date: 06/25/2024 Preferred Language: Kyrgyz Assessment & Plan Assessment: Pt continues to require significant assistance for mobility and requires MAX A for static sitting balance today with forward lean. Pt with heavy L neglect despite verbal, visual, and tactile cues to visually attend to L visual field. Pt not able to visually achieve midline today. Pt does not consistently follow commands today and is lethargic throughout session with decreased erect sitting balance. Pt will benefit from splint fabrication for LUE to promote functional positioning of LUE. Pt to cont to benefit from skilled OT while in house to address deficits and maximize function. Precautions: Medical Precautions: Contact, Droplet Subjective No verbalizations Pain: Pain Assessment: Castaneda-Romano FACES (06/25/2024 2:00 PM) Objective RN approved OT tx session. Pt mobilized to EOB MAX A x2 and requires MAX A for sitting balance. Facilitation of visual attention to L visual field with verbal, visual, and auditory cues. PROM of LUE performed for tissue mobilization. Pt fatigues quickly and returns to semi-supine TOTAL A and is positioned comfortably. Vital Signs: Tachy to 120s with mobility, BP WNL General Visit Information: Family/Caregiver Present: No Others Present: OT Tech Mobility/Transfers: Bed Mobility Bed Mobility Bed Mobility: Yes Bed Mobility 1 Level of Assistance 1: Substantial/Max assistance Bed Mobility Comments 1: MAX x2 Bed Mobility To/From: Supine to sit on EOB Treatment Bed Mobility: Bed Mobility Bed Mobility: Yes Bed Mobility 1 Level of Assistance 1: Substantial/Max assistance Bed Mobility Comments 1: MAX x2 Bed Mobility To/From: Supine to sit on EOB Balance/Neuromuscular Re-education Neuromuscular Re-Education Time Entry: 23 Balance/Neuromuscular Re-Education Activity 1: Pt mobilized to EOB with focus on sustaining static sitting balance and midline orientation Balance/Neuromuscular Re-Education Activity 2: Facilitation of visual attention to L environment Balance/Neuromuscular Re-Education Activity 3: PROM of LUE for tissue mobility AM-PAC Daily Activity: 06/25/24 1120 AM-PAC Daily Activity Inpatient Putting on and taking off regular lower body clothing 1 Bathing (including washing, rinsing, drying) 1 Toileting, which includes using toilet, bedpan or urinal 1 Putting on and taking off regular upper body clothing 2 Taking care of personal grooming such as brushing teeth 2 Eating Meals 2 AM-PAC Daily Activity Raw Score 9 Mobility Highest Level of Mobility Performed (JH-HLM): Sat at edge of bed Patient Education: Education Documentation No documentation found. Education Comments No comments found. Goals: Encounter Goals Encounter Goals (Active) Pt will tolerate sitting EOB for > 10 minutes with Min A and use of one UE for support in preparation for OOB activity Start: 06/12/24 Expected End: 06/26/24 Pt will complete bed to toilet transfer to [facility] with Min A using AE as needed in preparation for household ambulation Start: 06/12/24 Expected End: 06/26/24 Pt will complete upper and lower body dressing task with Mod A using AE as needed. Start: 06/12/24 Expected End: 06/26/24 Patient will don UE orthotic with Mod A assist in order to promote functional positioning of UE. Start: 06/12/24 Expected End: 06/26/24 Treatment Note: If this is the last documented treatment, then it will signify discharge from acute care prior to discharge from the therapy service and will serve as the discharge summary. Shira Hannon OT L ARTISTS' * Nancy Stanford, PT - 06/25/2024 10:54 AM MODEL ARTISTS' Physical Therapy Treatment Session Note Patient Name: Isabel Henry Today's Date: 06/25/2024 Preferred Language: Kyrgyz Assessment & Plan Assessment: PT Assessment: Pt able to speak today, said her name but was otherwise disoriented. She remains unable to use L side, unable to really assist w/ mobility. Will continue to follow, rec inpatient post acute therapy Medical Staff Made Aware: Yes Plan: PT Frequency: 2-3 times per week until discharge Subjective Pt lying in bed in NAD, noted liquid BM coming out of diaper Pain: 0/10 ObjectiveGeneral Visit Information: PT Last Visit PT Received On: 06/25/24 CognitionOrientation Level: Disoriented to place, Disoriented to time, Disoriented to situation TreatmentTherapeutic activity: Therapeutic Activity Therapeutic Activity Time Entry: Therapeutic Activity 1: Noted pt had very large liquid BM in bed. Provided extensive cleaning and changing of pads, diaper, gown. ALso notified RN that pt needs new abdominal binder as it was also soiled. Pt awake but was unable to assist w/ mobility. She was able to say her name, otherwise disoriented. SHe was then laterally scooted over to NC for upright tolerance. Lap belt was applied for safety, pt positioned for comfort. Pt was left in chair w/ all needs met, lift team called for back to bed in 1.5 hours. RN informed, PT recommended wound care consult for pt's sacrum and buttocks wounds Bed Mobility: Bed Mobility 1:Level of Assistance 1: Dependent Bed Mobility To/From: Roll left/right Transfers: Transfers 1: Technique 1: Dependent lift Level of Assistance 1: Dependent Transfer To/From: Bed, Chair Outcome Measures: AM-PAC Basic Mobility:AM-PAC Basic Mobility Inpatient Turning in bed without bedrails: A Lot Lying on back to sitting on edge of flat bed: A Lot Bed to chair: A Lot Standing up from chair: A Lot Walk in room: Total Climbing 3-5 stairs: Total Mobility Inpatient Raw Score: 10 -[facility] Goal: 4 Patient Education:Education Documentation No documentation found. Education Comments No comments found. Goals:Encounter Goals Encounter Goals (Active) Patient will be min A w/ bed mobility Start: 06/12/24 Expected End: 06/26/24 Patient will be mod A w/ transfers Start: 06/12/24 Expected End: 06/26/24 Patient will be mod A w/ ambulation 10' w/ LRAD Start: 06/12/24 Expected End: 06/26/24 Treatment Note: If this is the last documented treatment, then it will signify discharge from acute care prior to discharge from the therapy service and will serve as the discharge summary. Nancy Stanford, PT L ARTISTS' * Milagros Alvarez - 06/25/2024 10:50 AM MODEL ARTISTS' Functional Maintenance Patient Name: Isabel Henry Today's Date: 06/25/2024 Mobility: RN requested Lift Team assistance. Pt was found in neurochair. Pt was assisted to transfer from neurochair B2B via lateral drawsheet transfer. Pt was left safely under care of RN. Milagros Darnellom L ARTISTS' * Nery Goldstein RN - 06/25/2024 10:22 AM MODEL ARTISTS' CASE MANAGEMENT ROUTINE DISCHARGE PLAN NOTE LOS: 14 Barriers to Discharge: BP control DISCHARGE PLAN A: SNF [facility] DISCHARGE PLAN B: Home with HH PATRICIA: 06/26 L ARTISTS' * Gerson Guardado LMSW - 06/25/2024 8:47 AM MODEL ARTISTS' 06/25/24 0800 Discharge Planning Barriers to Discharge Home Cardio recs, flu, UTI, EP recs Patient expects to be discharged to: [facility] Expected Discharge Disposition SNF Discharge Planning Comments Updated clinicals uploaded to [facility]. L ARTISTS' * Concepción Mukherjee NP - 06/25/2024 8:19 AM MODEL ARTISTS' Subjective Hypertension overnight Objective Last Recorded Vitals Blood pressure (!) 193/90, pulse 100, temperature 36.9 ?C (98.4 ?F), temperature source Oral, resp. rate (!) 23, height 1.55 m (5' 1.02"), weight 61 kg (134 lb 7.7 oz), SpO2 96%. Physical Exam: GENERAL: well nourished HEENT: - Normocephalic and atraumatic; MMM, LUNGS - Clear to auscultation bilaterally with no wheezes CV - tachycardia, intact peripheral pulses ABDOMEN - Soft, nontender, nondistended with normoactive BS Neuro: Mental Status: Opens eyes to voice, able to say her name and following commands Speech: dysarthria CN: PERRL 2 mm/ sluggish, R gaze does not cross midline, R FD , face sensation is intact Motor: RUE/RLE AG no drift, LUE WD, LLE WD Sensation: decreased on L Side Coordination: deferred Diagnostic Results CT BRAIN WO IV CONTRAST Result Date: 06/12/2024 EXAM: CT BRAIN WITHOUT CONTRAST DATE: 06/12/2024 15:31 INDICATION: exam change COMPARISON: CT brain without contrast 06/11/2024, MRI brain 06/11/2024 TECHNIQUE: Axial CT images of the brain were obtained. Sagittal and coronal reformats. IV contrast: None DLP: Refer to CT protocol form FINDINGS: Evolving infarct in the right MCA territory infarct that appears increasingly hypodense and areas of evolving cytotoxic edema (series 2 image 13, 20). There is also increased associated effacement of the right lateral ventricle. Leftward midline shift by 5 to 6 mm, mildly increased. Subtle curvilinear hyperdensities in the area of infarction likely correspond to areas of petechial hemorrhage on prior MRI. Chronic lacunar infarcts in the left basal ganglia/camp radiata. Chronic lacunar infarcts in the left thalamus. Periventricular hypodensities likely freight representative of chronic microvascular ischemic disease. Mild diffuse brain parenchymal volume loss with mild ex vacuo ventriculomegaly.. No acute interval osseous changes. Mild opacification in the left maxillary sinus with mucosal thickening. Sclerosis of the left maxillary sinus steiner likely represent the chronic sequela of sinusitis the rest of the paranasal sinuses are predominantly clear. IMPRESSION: 1. Evolving subacute infarct of the right MCA territory associated cytotoxic edema subtle areas of petechial hemorrhagic transformation better appreciated on prior MRI. Increased effacement of the right lateral ventricle with mildly increased midline shift to the left 2. Chronic microangiopathic changes. Chronic infarct in the left basal ganglia/camp radiata. This report was dictated by a Private Duty Aide/Fellow/JASWANT: Vijay Conrad RES, MD 06/12/2024 16:11 This report was dictated by a Private Duty Aide/Fellow/Physician Regional Maintenance Manager. I have personally reviewed the images as well as the interpretation and agree with the findings. Report finalized by: Carol Ann Harper MD 06/12/2024 16:31 Echo (TTE) complete 06/11/2024 Interpretation Summary Left Ventricle: Left ventricle is smaller than normal. Mildly increased wall thickness in the left ventricle. Findings consistent with concentric remodeling. Mildly reduced systolic function with an estimated EF of 40 - 45%. Global longitudinal strain is reduced. LV GLS is -10.7%. Abnormal diastolic function of the left ventricle. Right Ventricle: Right ventricle size is normal. Moderately reduced systolic function in the right ventricle. Left Atrium: Left atrium is moderately dilated. Right Atrium: Right atrium size is normal. Aortic Valve: Aortic valve is trileaflet. Mildly thickened leaflets in the aortic valve. Leaflet motion is normal. No aortic regurgitation present. No aortic stenosis present. Tricuspid Valve: Tricuspid valve is structurally normal. Mild tricuspid regurgitation present. RVSP is 48.00 mmHg. Mitral Valve: Mildly calcified leaflets in the mitral valve. Mild mitral annular calcification. Mild mitral regurgitation present. Pulmonic Valve: Pulmonic valve is structurally normal. Aorta: Normal sized aortic root and ascending aorta present. IVC/SVC: IVC diameter is less than or equal to 21 mm and decreases less than 50% during inspiration; therefore the estimated right atrial pressure is intermediate (~8 mmHg). Hepatic veins shows systolic flow reversal suggestive of restrictive filling. Pericardium: No pericardial effusion present. ECG 12 lead Result Date: 06/14/2024 Impression: ATRIAL FIBRILLATION WITH A RAPID VENTRICULAR RESPONSE ABNORMAL ECG WHEN COMPARED WITH ECG OF 12-JUN-2024 07:54, NO SIGNIFICANT CHANGE Confirmed by Don Mead ([id number]) on 06/14/2024 6:36:47 PM ECG 12 leadResult Date: 06/12/2024 Impression: ATRIAL FIBRILLATION ABNORMAL QRS-T ANGLE, CONSIDER PRIMARY T WAVE ABNORMALITY PROLONGED QT INTERVAL OR TU FUSION, CONSIDER MYOCARDIAL DISEASE, ELECTROLYTE IMBALANCE, OR DRUG EFFECTS NO PREVIOUS ECGS AVAILABLE Confirmed by Juanpablo Mueller ([id number]) on 06/12/2024 7:56:30 PM 78 year old female with a history of HTN, DM II, HLD and hypothyroidism who was found to have an ischemic infarct of the right MCA territory at an outside hospital who presented as a transfer for possible thrombectomy. LKN at 5 PM on 06/10. OOW for TNK at OSH. Patient was intubated at the OSH for airway protection. Patient under arrival was comatose, not completely explained by the Right MCA stroke. Possible due to being on sedatives at the OSH, or concern for subclinical seizures. Patient is in NICU for close observation. Patient received CT head upon arrival and was found to have a ischemic stroke in right M2 distribution with aspects of 6. CTA showed a right MCA infarct however as per radiology no stump was found. CT perfusion was obtained and found to have the penumbra/infarct ratio almost 1. The mismatch was 3 ml. There was a concern for subclinical seizures in a setting of clinical exam disproportionate to Neuroimaging findings - keppra load was ordered and given. Ativan 2 mg was administered. EEG no seizures. MRI brain wo acute infarct in R MCA with gyral hemorrhagic transformation.TTE EF 40-45, concentric remodeling , left atrium moderately dilated , no thrombus. PEG placed 06/18 with no complications. 06/23 Afib w/RVR requiring Metoprolol 5mg IVP x3, Dr. Baker consulted, rec Metoprolol 50 q6hrs , Digoxin 500 mcg x1. 06/24 Tmax 101.8,menchaca cultured, + UTI rocephin started, Influenza A+. Stomach biopsy w/ gastric intestinal metaplasia and equivocal H pylori testing plan to start Pyera +PPI. Plan for cardioversion 06/26. Assessment & Plan Right middle cerebral artery stroke (HCC) Acuity: Acute Etiology: Cardioembolic (new onset A-fib) -S/p Keppra 60mg/kg, c/w 750 BID -ASA 81 mg d;chelo 06/19-> Eliquis 5 mg BID -statin -cvEEG no seizures - dc'ed Keppra -MRI brain wo acute infarct in R MCA with gyral hemorrhagic transformation -TTE EF 40-45, concentric remodeling , left atrium moderately dilated , no thrombus -Modafinil 100 mg daily -SBP< 140 -PT/OT/ST Dysarthria-ST Dysphagia- TF -s/p stomachy biopsy w/ gastric intestinal metaplasia and equivocal H pylori testin g - Pepto Bismuth 30 mg qid+ flaygl 250 mg q6hrs + tetracycline 500 mg bid + PPI x 14 days - PEG placed 06/18 Hemiplegia (CMS/HCC) (HCC)- PT/OT Acute respiratory failure (HCC)- vent management per ICU -> extubated 06/11 - on RA Atrial fibrillation (CMS/HCC) (HCC)- Eliquis 5 mg BID - 06/23 s/p Metoprolol 5mg IVP x3 - rate control - coreg 25mg BID ->06/23 Metoprolol tartrate 50mg q6hrs - Digoxin 500 mcg IVP x1 - EP consulted, Dr. Baker appreciate recs - Plan for cardioversion 06/26 Hypertension- SBP < 140 - Lisinopril 20 mg BID + Coreg 25 mg BID d'chelo->06/23 Metoprolol tartrate 25 mg q12hrs+ Amlodipine 10 mg daily+ Hydratazine 25 mg TID->Hydralazine 50 mg TID - titrate oral agents Hyperlipidemia- Statin - LDL goal < 70 Diabetes mellitus ([facility])- SSI - Endo consulted: Glargine 25 daily, lispro 16 pre-meal 4x a day, SSI Aspiration pneumonia (CMS/HCC) ([facility])- Fever 101 on 06/13 - Started on zosyn 06/13 -06/18- completed course - Rx cultures 06/13 - NGTD UTI (urinary tract infection)- UA +UTI, pending sensitivity - Rocephin x7days (06/24-07/01) Influenza A- Influenza A+ - supportive therapy - O2 PRN - Duo Neb PRN Current Diet: NPO Diet Dispo: DARCY Rizvi-BCStroke Team B MAIL[employer]PER[employer] [phone] 7-5PM, Please call [phone] after 5PM Case discussed with Dr. Larson who agrees with the plan of care. Cosigned by Venkatesh Larson MD at 06/25/2024 10:11 PM MODEL ARTISTS' L ARTISTS' L ARTISTS' L ARTISTS' Associated attestation - Venkatesh Larson MD - 06/25/2024 10:11 PM CST STROKE NEUROLOGY ATTENDING ATTESTATION I have personally seen and evaluated the patient on 06/25/2024, and I waspresent for see critical points of the encounter. I have discussed the case with and reviewed the provider note detailed above. I have personally viewed the patient's radiographic studies, laboratory tests, and medications. I agree with the above documented history, exam, assessment and plan. Please see note below for any additions and/or exceptions to the note above. 78-year-old female with history of HTN, DM, HLD, hypothyroidism suffered aright MCA ischemic stroke on June 11, hospital course has been complicated by subclinical seizure concern with ultimately continuous video EEG negative, aspiration pneumonia treated with Zosyn and completed course, and most predominantly A-fib with RVR. Suspected stroke etiology is new onset atrial fibrillation. Patient iscurrently on Eliquis 5 mg twice daily. Also being treated with high-dose statin. Was prior treated with Keppra however EEG negative and therefore Keppra discontinued. In regards to stroke workup, TTE with EF 40 to 45%, concentric remodeling, left atrial moderately dilated, no thrombus. PEG was placed on 06/18/2024 due to severe dysphagia posterior. Patient also being managed for her diabetes, on insulin regimen as noted above. Interval updates: 06/23 - patient remained in refractory A-fib RVR despite multiple pushes of IV metoprolol and up titration of p.o. metoprolol to 50 mg every 6. We discussed this with EP cardiology and ultimately decision was made to start digoxin 0.5 mg IV push. We will continue digoxin therapy at the discretion of EP cardiology. 06/24 - no further episodes of RVR, EP cards considering cardioversion but willbe higher risk given recent large stroke. Patient mentation improving this morning states her name but remains plegic in left hemibody and lethargic. Increased metoprolol 75mg q6h to prevent further RVR. No further digoxin fornow. 06/25 updates - required uptitration of metoprolol 100mg, discussed case with EP cards Dr. Baker and plan for SAYRA cardioversion on 06/26. NPO after midnight, cardioversion only to take place if patient without cardiac thrombus on SAYRA. Otherwise more alert on rounds today, complaint of some headache, communicating more. Still plegic in left hemibody but wiggles toes on left foot. PROBLEM LIST & PLAN:Principal Problem: Right middle cerebral artery stroke (HCC) Active Problems: Acute respiratory failure (HCC) Hypertension Hyperlipidemia Dysphagia Dysarthria Hemiplegia (CMS/HCC) (HCC) Atrial fibrillation (CMS/HCC) (HCC) Diabetes mellitus (HCC) Aspiration pneumonia (CMS/HCC) (HCC) UTI (urinary tract infection) Influenza A Encounter took 40 minutes of total cumulative time examining the patient at the bedside and in discussion regarding plan of care and addressing questions and concerns, reviewing the EMR and paper chart, reviewing diagnostic studies, laboratory values, and recommendations. I provided a substantive portion of the care of this patient. I personally performed the MDM for this encounter. Venkatesh Larson MD, RPNIAssistant Professor, Vascular Neurology * Vik Wayne DO - 06/24/2024 1:26 PM [facility] Brief Gastroenterology Note GI path reviewed: Final Diagnosis Stomach, biopsy: - Active erosive gastritis/gastropathy with reactive epithelial changes and intestinal metaplasia, complete and incomplete types. - Negative for dysplasia. - See comment. Diagnosis Comment Helicobacter pylori immunohistochemical stain is performed on block A1, is equivocal. There are rare staining particles. This finding may represent background nonspecific staining. However, the possibility of Helicobacter pylori infection can not be excluded. Correlation with other diagnostic modalities (e.g. breath test, YUMI test) may be considered for further evaluation if clinically indicated. Acute erosive gastritis/gastropathy is characterized by erosive lesions that develop shortly after exposure of the gastric mucosa to injurious substances (such as alcohol, drugs or toxins), heavy smoking, cancer chemotherapy, bile reflux, uremia, systemic infections (Salmonella), severe stress (trauma, tavares, surgery) or after a substantial reduction in mucosal blood flow (ischemic gastropathy). Recommendations: -in the setting of gastric intestinal metaplasia and equivocal H pylori testing, will opt for treatment -Start Pylera (or equivalent) + PPI BID x 14 days -Will set up clinic follow up Vik Wayne DO Gastroenterology & Hepatology l PGY-5 [facility] L ARTISTS' * Rin Dominguez NP - 06/24/2024 1:13 PM [facility] Images from the original note were not included. EP cardiology progress note dictated. Dictation# [id number]. Rin Dominguez, CHRISTINE, COMMERCIAL PROJECT MANAGER, ACNP-BC, ANP-BC, MAILS SUPERVISOR-C Department of Cardiology Contact: Via [employer] Secure Chat L ARTISTS' * Dea Eubanks MD - 06/24/2024 10:53 AM [facility] Endocrinology Progress Note Assessment: The patient is a 78 y.o. female w PMH of HTN, DM2, HLD, afib, and hypothyroidism who was found to have an ischemic infarct of the R MCA territory at an OSH and presented as a transfer for possible thrombectomy. OOW for TNK at OSH. Also was comatose on arrival with concern for subclinical seizures initially. Extubated 06/11 and PEG tube placed 06/18. Endocrinology consulted for glycemic control. Problem list: #Type 2 Diabetes Mellitus - Home medications: Glimepiride 2 mg every day, Metformin 500 mg BID - A1C 7.51 on 06/11/24 - Now on bolus tube feeds fibersource HN 375ml 4x daily. (9AM, 1PM, 5PM, 9PM) #Hypothyroidism - TSH 1.041 on arrival on 06/11/24 - In care everywhere, labs from 07/16/2023: TSH 8.710, free T4 1.04. At that time was taking levothyroxine 125 mcg daily - Currently on levothyroxine 100 mcg daily this admission Recommendations: - Continue lantus 25 units daily - Continue lispro 16 units pre-meal (4 times a day right before bolus tube feeds) - Please make sure she is receiving pre-meal Lispro before every bolus feed - Continue MD BRYANT (lispro Med ICF (2:50 for BG >150)) - Please make sure MD BRYANT is timed to match the tube feed timings Plan was discussed with Dr. Leonardo. Thank you for the opportunity to participate in the care of this patient. We will continue to follow. Please page with any questions or concerns. Dea Eubanks MD Internal Medicine | PGY-1 [facility] | [facility] Material[employer] 06/24/2024 Date of Consult: 06/22/2024 Requesting Physician: Michelle Alves Jr., MD Consulting Physician: Dr. Cochran Reason for Consult: glycemic control History of Present Illness: The patient is a 78 y.o. female w PMH of HTN, DM2, HLD, afib, and hypothyroidism who was found to have an ischemic infarct of the R MCA territory at an OSH and presented as a transfer for possible thrombectomy. OOW for TNK at OSH. Also was comatose on arrival with concern for subclinical seizures initially. Extubated 06/11 and PEG tube placed 06/18. She is unsure about her home diabetic regimen or her compliance with the listed home medications. Unsure when she was diagnosed with DM but it is listed in her medical history dating back to 2020. Home medications: Glimepiride 2 mg every day, Metformin 500 mg BID. A1C 7.51 on 06/11/24. She reports no prior history of thyroid disease before this admission, but per chart review was on levothyroxine 125 mcg daily in Jun 2023. History: Medical: History reviewed. No pertinent past medical history. Surgical: Past Surgical History: Procedure Laterality Date ESOPHAGOGASTRODUODENOSCOPY 06/18/2024 EGD 06/18/2024 Mckenzie Ely MD [facility] Social: Social History Tobacco Use Smoking status: Never Passive exposure: Never Smokeless tobacco: Never Substance Use Topics Alcohol use: Not on file Family: No family history on file. Prior to admission medications No current outpatient medications Allergies Allergies Allergen Reactions Depo-Provera [Medroxyprogesterone Acetate] Unknown Review of Systems: Gen: No fever, chills, nightsweats, or fatigue. Skin: No rashes, sores, itching, or bruising. HEENT: No trauma, headache, or visual changes. No hearing loss, tinnitus, or vertigo. Resp: No wheezing, shortness or breath, cough, or hemoptysis. CV: No tachycardia, dyspnea on exertion, or orthopnea. No leg edema, or claudication GI: No nausea, vomiting, or abdominal pain. : No dysuria, hematuria, or incontinence. Msk: No myalgias or arthralgias. Neuro: No syncope, seizures, headaches, changes in sensation, or weakness. Heme: No easy bruising, bleeding, or lymphadenopathy. Endo: No heat or cold intolerance, hair loss, or weight changes. Psych: Not depressed or elevated mood, no anxiety. Physical Exam: Patient Vitals for the past 24 hrs: BP Temp Temp src Pulse Resp SpO2 06/24/24 1000 137/65 -- -- 95 22 94 % 06/24/24 0900 156/68 -- Axillary 93 (!) 23 96 % 06/24/24 0900 -- 37.8 ?C (100 ?F) -- -- -- -- 06/24/24 0800 (!) 182/75 -- -- 90 22 94 % 06/24/24 0700 (!) 173/74 -- -- 87 22 95 % 06/24/24 0600 157/66 -- -- 95 21 95 % 06/24/24 0500 159/70 36.9 ?C (98.4 ?F) Axillary 89 22 96 % 06/24/24 0400 137/62 -- -- 88 22 95 % 06/24/24 0243 -- -- -- 83 (!) 27 94 % 06/24/24 0201 143/64 -- -- -- -- -- 06/24/24 0200 -- -- -- -- 15 95 % 06/24/24 0128 -- -- -- 94 -- -- 06/24/24 0100 150/68 -- -- 95 21 94 % 06/24/24 0000 (!) 143/95 (!) 38.1 ?C (100.6 ?F) Axillary 88 (!) 24 94 % 06/23/24 2300 -- -- -- (!) 132 (!) 25 94 % 06/23/24 2243 (!) 159/119 -- -- -- -- -- 06/23/24 2200 (!) 166/127 -- -- (!) 143 (!) 29 94 % 06/23/242103 -- -- Axillary -- -- -- 06/23/242103 -- (!) 38.8 ?C (101.8 ?F) -- -- -- -- 06/23/24 2100 (!) 153/117 -- -- (!) 144 (!) 27 93 % 06/23/24 2000 (!) 140/103 -- -- (!) 140 (!) 25 94 % 06/23/24 1900 159/67 -- -- -- (!) 24 95 % 06/23/24 1810 -- -- -- (!) 145 -- -- 06/23/24 1800 150/68 -- -- (!) 116 22 95 % 06/23/24 1700 -- -- -- (!) 137 (!) 24 93 % 06/23/24 1631 154/84 -- -- -- -- -- 06/23/24 1600 138/61 -- -- (!) 110 21 94 % 06/23/24 1500 129/62 -- -- (!) 106 20 94 % 06/23/24 1459 129/62 -- -- (!) 103 20 94 % 06/23/24 1400 (!) 152/58 -- -- (!) 108 22 93 % 06/23/24 1300 134/63 -- -- (!) 102 20 93 % 06/23/24 1217 -- -- Axillary -- -- -- 06/23/24 1217 -- 37.6 ?C (99.6 ?F) -- -- -- -- 06/23/24 1200 (!) 123/54 -- -- (!) 133 20 96 % Physical Exam Constitutional: The patient is not in acute distress. HENT: Normocephalic and atraumatic. Eyes: No scleral icterus, Extraocular movements intact , Conjunctivae normal, Pupils are equal, round, and reactive to light. Cardiovascular: Normal rate and regular rhythm with no added sounds Pulmonary: Pulmonary effort is normal. No respiratory distress. Normal breath sounds. No wheezing. Abdominal:Abdomen is soft., bowel sounds are normal. no distension. no abdominal tenderness. Skin:Skin is warm. Neurological: Alert and oriented, left sided facial droop Data: Pertinent Labs : Lab Results Component Value Date WBC 9.88 06/23/2024 Hgb 10.1 (L) 06/23/2024 Hct 31.8 (L) 06/23/2024 Plt Count 536 (H) 06/23/2024 Lab ResultsComponent Value Date Sodium Lvl 143 06/23/2024 Potassium Lvl 4.5 06/23/2024 Chloride Lvl 110 (H) 06/23/2024 CO2 Lvl 24.3 06/23/2024 BUN 57 (H) 06/23/2024 Creatinine Lvl 1.53 (H) 06/23/2024 Glucose Lvl 218 (H) 06/23/2024 POC Glu 136 (H) 06/24/2024 No results found for: "HGBA1C"No results found for: "TSH" Radiology Review: @IMGFNDIMP@ Cosigned by Nikkie Cochran MD at 06/25/2024 9:00 AM CST L ARTISTS' L ARTISTS' Associated attestation - Nikkie Cochran MD - 06/25/2024 9:00 AM [facility] I have personally interviewed and examined patient with resident, Dr. Eubanks. I have reviewed the evaluation and agree with issues, findings, and plan of care as documented in today's note. Ms. Henry is a 78-year-old woman with T2DM on bolus TEN.Continue lantus 25 units daily. Recommend lispro 16 units 4 times daily with bolus TEN. Recommend lispro Med ICF (2:50 for BG >150) 4 times daily with bolus TEN. Plan discussed with nurse and primary team. Nikkie Cochran MD * Gerson Guardado LMSW - 06/24/2024 8:47 AM [facility] 06/24/24 0800 Discharge Planning Discharge Planning Comments Uploaded updated clinicals. Pending medical clearance. Accepted at [facility]. Gerson Guardado LMSW [phone] L ARTISTS' * Concepción Mukherjee, ELIDA - 06/24/2024 7:11 AM [facility] Subjective Tmax 101.8, MENCHACA cultured, + UTI rocephin started , influenza A+ Objective Last Recorded Vitals Blood pressure 157/66, pulse 95, temperature 36.9 ?C (98.4 ?F), temperature source Axillary, resp. rate 21, height 1.55 m (5' 1.02"), weight 61 kg (134 lb 7.7 oz), SpO2 95%. Physical Exam: GENERAL: well nourished HEENT: - Normocephalic and atraumatic; MMM, LUNGS - Clear to auscultation bilaterally with no wheezes CV - tachycardia, intact peripheral pulses ABDOMEN - Soft, nontender, nondistended with normoactive BS Neuro: Mental Status: Opens eyes to voice, able to say her name and following commands Speech: dysarthria CN: PERRL 2 mm/ sluggish, R gaze does not cross midline, R FD , face sensation is intact Motor: RUE/RLE AG no drift, LUE WD, LLE WD Sensation: decreased on L Side Coordination: deferred Diagnostic Results CT BRAIN WO IV CONTRAST Result Date: 06/12/2024 EXAM: CT BRAIN WITHOUT CONTRAST DATE: 06/12/2024 15:31 INDICATION: exam change COMPARISON: CT brain without contrast 06/11/2024, MRI brain 06/11/2024 TECHNIQUE: Axial CT images of the brain were obtained. Sagittal and coronal reformats. IV contrast: None DLP: Refer to CT protocol form FINDINGS: Evolving infarct in the right MCA territory infarct that appears increasingly hypodense and areas of evolving cytotoxic edema (series 2 image 13, 20). There is also increased associated effacement of the right lateral ventricle. Leftward midline shift by 5 to 6 mm, mildly increased. Subtle curvilinear hyperdensities in the area of infarction likely correspond to areas of petechial hemorrhage on prior MRI. Chronic lacunar infarcts in the left basal ganglia/camp radiata. Chronic lacunar infarcts in the left thalamus. Periventricular hypodensities likely freight representative of chronic microvascular ischemic disease. Mild diffuse brain parenchymal volume loss with mild ex vacuo ventriculomegaly.. No acute interval osseous changes. Mild opacification in the left maxillary sinus with mucosal thickening. Sclerosis of the left maxillary sinus steiner likely represent the chronic sequela of sinusitis the rest of the paranasal sinuses are predominantly clear. IMPRESSION: 1. Evolving subacute infarct of the right MCA territory associated cytotoxic edema subtle areas of petechial hemorrhagic transformation better appreciated on prior MRI. Increased effacement of the right lateral ventricle with mildly increased midline shift to the left 2. Chronic microangiopathic changes. Chronic infarct in the left basal ganglia/camp radiata. This report was dictated by a Private Duty Aide/Fellow/JASWANT: Vijay Conrad RES, MD 06/12/2024 16:11 This report was dictated by a Private Duty Aide/Fellow/Physician Regional Maintenance Manager. I have personally reviewed the images as well as the interpretation and agree with the findings. Report finalized by: Carol Ann Harper MD 06/12/2024 16:31 CT BRAIN WO IV CONTRAST Result Date: 06/11/2024 EXAM: CT BRAIN WITHOUT CONTRAST DATE: 06/11/2024 1:38 INDICATION: Rm2 occlusion COMPARISON: Same day CTA head. CT head without contrast performed earlier the same day at outside institution TECHNIQUE: Axial CT images of the brain were obtained. Sagittal and coronal reformats. IV contrast: None DLP: Refer to CT protocol form FINDINGS: Loss of mosher-white matter differentiation involving the M1, M2, M4, and M5 regions of the right MCA which has progressed from the outside study.. There is cortical hyperdensity with effacement of adjacent sulci involving the M3 and M6 regions and the posterior insula which has developed over the interval since the outside study Likely chronic infarcts involving the left basal ganglia . Periventricular and supratentorial white matter hypodensities are present. Diffuse cerebral volume loss with compensatory ex vacuo dilation of the ventricular system. No intracranial hemorrhage is identified. The skull base, calvarium, and included facial bones are unremarkable. Mucosal thickening of the left maxillary sinus. Partially visualized endotracheal and enteric tubes.. IMPRESSION: Acute infarction of the right MCA territory with evidence of possible reperfusion, petechial hemorrhagic transformation, and/or contrast enhancement in the territory of the inferior division The Critical findings of acute ischemia were communicated to and acknowledged by Dr. Garces via telephone at 06/11/2024 220 by Carine Love RES. The above findings as well as the CTA findings were also discussed with the neuroendovascular team via telephone at 2:40 a.m. on 06/11/2024. This report was dictated by a Private Duty Aide/Fellow/Physician Regional Maintenance Manager. I have personally reviewed the images as well as the interpretation and agree with the findings. Report finalized by: Marco A Ng MD 06/11/2024 8:10 Echo (TTE) complete 06/11/2024 Interpretation Summary Left Ventricle: Left ventricle is smaller than normal. Mildly increased wall thickness in the left ventricle. Findings consistent with concentric remodeling. Mildly reduced systolic function with an estimated EF of 40 - 45%. Global longitudinal strain is reduced. LV GLS is -10.7%. Abnormal diastolic function of the left ventricle. Right Ventricle: Right ventricle size is normal. Moderately reduced systolic function in the right ventricle. Left Atrium: Left atrium is moderately dilated. Right Atrium: Right atrium size is normal. Aortic Valve: Aortic valve is trileaflet. Mildly thickened leaflets in the aortic valve. Leaflet motion is normal. No aortic regurgitation present. No aortic stenosis present. Tricuspid Valve: Tricuspid valve is structurally normal. Mild tricuspid regurgitation present. RVSP is 48.00 mmHg. Mitral Valve: Mildly calcified leaflets in the mitral valve. Mild mitral annular calcification. Mild mitral regurgitation present. Pulmonic Valve: Pulmonic valve is structurally normal. Aorta: Normal sized aortic root and ascending aorta present. IVC/SVC: IVC diameter is less than or equal to 21 mm and decreases less than 50% during inspiration; therefore the estimated right atrial pressure is intermediate (~8 mmHg). Hepatic veins shows systolic flow reversal suggestive of restrictive filling. Pericardium: No pericardial effusion present. ECG 12 lead Result Date: 06/14/2024 Impression: ATRIAL FIBRILLATION WITH A RAPID VENTRICULAR RESPONSE ABNORMAL ECG WHEN COMPARED WITH ECG OF 12-JUN-2024 07:54, NO SIGNIFICANT CHANGE Confirmed by Don Mead ([id number]) on 06/14/2024 6:36:47 PM ECG 12 leadResult Date: 06/12/2024 Impression: ATRIAL FIBRILLATION ABNORMAL QRS-T ANGLE, CONSIDER PRIMARY T WAVE ABNORMALITY PROLONGED QT INTERVAL OR TU FUSION, CONSIDER MYOCARDIAL DISEASE, ELECTROLYTE IMBALANCE, OR DRUG EFFECTS NO PREVIOUS ECGS AVAILABLE Confirmed by Juanpablo Mueller ([id number]) on 06/12/2024 7:56:30 PM 78 year old female with a history of HTN, DM II, HLD and hypothyroidism who was found to have an ischemic infarct of the right MCA territory at an outside hospital who presented as a transfer for possible thrombectomy. LKN at 5 PM on 06/10. OOW for TNK at OSH. Patient was intubated at the OSH for airway protection. Patient under arrival was comatose, not completely explained by the Right MCA stroke. Possible due to being on sedatives at the OSH, or concern for subclinical seizures. Patient is in NICU for close observation. Patient received CT head upon arrival and was found to have a ischemic stroke in right M2 distribution with aspects of 6. CTA showed a right MCA infarct however as per radiology no stump was found. CT perfusion was obtained and found to have the penumbra/infarct ratio almost 1. The mismatch was 3 ml. There was a concern for subclinical seizures in a setting of clinical exam disproportionate to Neuroimaging findings - keppra load was ordered and given. Ativan 2 mg was administered. EEG no seizures. MRI brain wo acute infarct in R MCA with gyral hemorrhagic transformation.TTE EF 40-45, concentric remodeling , left atrium moderately dilated , no thrombus. PEG placed 06/18 with no complications. 06/23 Afib w/RVR requiring Metoprolol 5mg IVP x3, Dr. Baker consulted, rec Metoprolol 50 q6hrs , Digoxin 500 mcg x1. 06/24 Tmax 101.8,menchaca cultured, + UTI rocephin started, Influenza A+. Stomach biopsy w/ gastric intestinal metaplasia and equivocal H pylori testing plan to start Pyera +PPI. Assessment & Plan Right middle cerebral artery stroke (HCC) Acuity: Acute Etiology: Cardioembolic (new onset A-fib) -S/p Keppra 60mg/kg, c/w 750 BID -ASA 81 mg d;chelo 06/19-> Eliquis 5 mg BID -statin -cvEEG no seizures - dc'ed Keppra -MRI brain wo acute infarct in R MCA with gyral hemorrhagic transformation -TTE EF 40-45, concentric remodeling , left atrium moderately dilated , no thrombus -Modafinil 100 mg daily -SBP< 140 -PT/OT/ST Dysarthria-ST Dysphagia- TF - PEG placed 06/18 Hemiplegia (CMS/HCC) (HCC)- PT/OT Acute respiratory failure ([facility])- vent management per ICU -> extubated 06/11 - on RA Atrial fibrillation (CMS/HCC) ([facility])- Eliquis 5 mg BID - 06/23 s/p Metoprolol 5mg IVP x3 - rate control - coreg 25mg BID ->06/23 Metoprolol tartrate 50mg q6hrs - Digoxin 500 mcg IVP x1 - EP consulted, Dr. Baker appreciate recs Hypertension- SBP < 140 - Lisinopril 20 mg BID + Coreg 25 mg BID d'chelo->06/23 Metoprolol tartrate 25 mg q12hrs+ Amlodipine 10 mg daily+ Hydratazine 25 mg TID->Hydralazine 50 mg TID - titrate oral agents Hyperlipidemia- Statin - LDL goal < 70 Diabetes mellitus ([facility])- SSI - Endo consulted: Glargine 25 daily, lispro 126pre-meal 4x a day, SSI Aspiration pneumonia (CMS/HCC) ([facility])- Fever 101 on 06/13 - Started on zosyn 06/13 -06/18- completed course - Rx cultures 06/13 - NGTD UTI (urinary tract infection)- UA +UTI, pending sensitivity - Rocephin started 06/24 Influenza A- Influenza A+ - supportive therapy - O2 PRN - Duo Neb PRN Current Diet: NPO Diet Dispo: DARCY Rizvi-BCStroke Team B MAILS SUPERVISOR [id number] 7-5PM, Please call [phone] after 5PM Case discussed with Dr. Larson who agrees with the plan of care. Cosigned by Venkatesh Larson MD at 06/24/2024 9:55 PM MODEL [facility]ISTS' L ARTISTS' L ARTISTS' L ARTISTS' L ARTISTS' Associated attestation - Venkatesh Larson MD - 06/24/2024 9:55 PM CST STROKE NEUROLOGY ATTENDING ATTESTATION I have personally seen and evaluated the patient on 06/24/2024, and I waspresent for see critical points of the encounter. I have discussed the case with and reviewed the provider note detailed above. I have personally viewed the patient's radiographic studies, laboratory tests, and medications. I agree with the above documented history, exam, assessment and plan. Please see note below for any additions and/or exceptions to the note above. 78-year-old female with history of HTN, DM, HLD, hypothyroidism suffered aright MCA ischemic stroke on June 11, hospital course has been complicated by subclinical seizure concern with ultimately continuous video EEG negative, aspiration pneumonia treated with Zosyn and completed course, and most predominantly A-fib with RVR. Suspected stroke etiology is new onset atrial fibrillation. Patient iscurrently on Eliquis 5 mg twice daily. Also being treated with high-dose statin. Was prior treated with Keppra however EEG negative and therefore Keppra discontinued. In regards to stroke workup, TTE with EF 40 to 45%, concentric remodeling, left atrial moderately dilated, no thrombus. PEG was placed on 06/18/2024 due to severe dysphagia posterior. Patient also being managed for her diabetes, on insulin regimen as noted above. Interval updates: 06/23 - patient remained in refractory A-fib RVR despite multiple pushes of IV metoprolol and up titration of p.o. metoprolol to 50 mg every 6. We discussed this with EP cardiology and ultimately decision was made to start digoxin 0.5 mg IV push. We will continue digoxin therapy at the discretion of EP cardiology. 06/24 - no further episodes of RVR, EP cards considering cardioversion but willbe higher risk given recent large stroke. Patient mentation improving this morning states her name but remains plegic in left hemibody and lethargic. Increased metoprolol 75mg q6h to prevent further RVR. No further digoxin fornow. PROBLEM LIST & PLAN:Principal Problem: Right middle cerebral artery stroke (HCC) Active Problems: Acute respiratory failure (HCC) Hypertension Hyperlipidemia Dysphagia Dysarthria Hemiplegia (CMS/HCC) (HCC) Atrial fibrillation (CMS/HCC) (HCC) Diabetes mellitus (HCC) Aspiration pneumonia (CMS/HCC) (HCC) UTI (urinary tract infection) Influenza A Encounter took 38 minutes of total cumulative time examining the patient at the bedside and in discussion regarding plan of care and addressing questions and concerns, reviewing the EMR and paper chart, reviewing diagnostic studies, laboratory values, and recommendations. I provided a substantive portion of the care of this patient. I personally performed the MDM for this encounter. Venkatesh Larson MD, RPCONYsskasandrat Professor, Vascular Neurology [facility] [email or web address] Office contact: [phone] Stroke Clinic: [phone] * Rin Dominguez NP - 06/24/2024 12:00 AM MODEL ARTISTS' Images from the original note were not included. PATIENT NAME: ISABEL HENRY CONTACT SERIAL NUMBER: [id number] DATE OF PROGRESS NOTE: 06/24/2024 EP CARDIOLOGY PROGRESS NOTE REASON FOR CURRENT HOSPITALIZATION: Acute cerebrovascular accident. BRIEF HISTORY OF PRESENT ILLNESS: Ms. Isabel Henry is a pleasant 78-year-old female with past medical history of hypertension, hyperlipidemia, diabetes mellitus type 2, and hypothyroidism. The patient initially was admitted on 06/11/2024 with an acute CVA, found also to have an atrial fibrillation with RVR, believed to be a new onset. EP Cardiology was initially consulted for EP management with atrial fibrillation with RVR. The patient has been confused since admission. According to the chart check, there is no documented history of previous known atrial fibrillation or previous cardiac evaluation, on care everywhere. Currently, the patient's primary team is [place] Stroke. SUBJECTIVE DATA: No acute events overnight. The patient is still confused. Also appeared to be lethargic. No fever or chills. Still atrial fibrillation with rate in the 90s. CURRENT MEDICATION LIST: Please refer to Epic for further details. LABORATORY DATA: Sodium 143, potassium 4.5, chloride 110, creatinine 1.53. White blood cells 9.88, hemoglobin 10.1, hematocrit 31.8, platelets 536. DIAGNOSTIC IMAGING: Done during current hospitalization: Echocardiogram done on 06/11/2024 showed ejection fraction is reduced to 40%-45%. Abnormal diastolic left ventricular function noted. Left atrium is moderately dilated. Right atrium is normal in size. There is no significant valvular disease or pericardial effusion noted. Mild increase in wall thickness of the left ventricle noted. PHYSICAL EXAMINATION: VITAL SIGNS: Blood pressure is 151/67, heart rate is 95, respiratory rate is 18, O2 saturation is 97%, temperature is 99.0. GENERAL/CONSTITUTIONAL: The patient appeared to be lethargic and confused. CARDIOVASCULAR: S1, S2. No S3. Irregular irregular rhythm with a rate on telemetry showing in the 90s, atrial fibrillation. LUNGS: Mildly decreased breath sounds on bilateral bases with no accessory muscle use. The patient appeared to be comfortable on room air. ABDOMEN: Soft, nontender, nondistended. No guarding. No rebound tenderness. EXTREMITIES: No lower extremity edema appreciated. NEURO: For full neurologic examination, please refer to Stroke Team notes. ASSESSMENT AND PLAN: Ms. Henry is a pleasant 78-year-old female with past medical history of hypertension, hyperlipidemia, diabetes mellitus type 2, and hypothyroidism, presented with acute CVA, found to have atrial fibrillation with RVR. EP Cardiology consulted for management of atrial fibrillation with RVR. IMPRESSION: Atrial fibrillation with RVR, believed to be new onset. Acute cerebrovascular accident. Essential hypertension. Diabetes mellitus type 2. Dysphagia. Hyperlipidemia. Aspiration pneumonia. Question of urinary tract infection. Positive influenza A. PLAN: Atrial fibrillation with RVR, unknown onset, but believed to be recent. There is no documented history of previous atrial fibrillation. Echocardiogram showed decreased ejection fraction about 40% to 45% with LA is dilated. No significant valvular disease, as TSH is unremarkable. Reduced ejection fraction could be related to uncontrolled hypertension or the patient's arrhythmias. The patient was on carvedilol, we can discontinue it and switch to metoprolol 50 mg q.6 hours. CHADS2-VASc score at least 5, currently on Eliquis. The patient is still in atrial fibrillation with rate in the 90s, resting. We will discuss with Dr. Baker for possible considering DC cardioversion, will need SAYRA before DCCV if OK with Stroke team. The patient was not on anticoagulation before this admission. Acute cerebrovascular accident, possibly cardioembolic in nature. Currently, MRI of the brain showed acute infarct to the right MCA and gyral hemorrhagic transformation. PT, OT, and speech Pathology is following. Currently on aspirin, Eliquis as noted above, continue statin. Nadia noted. The patient's management per primary team. Essential hypertension. Blood pressure possibly needing better control. Blood pressure goals to be dictated by Stroke Team. The patient was on lisinopril and carvedilol; discontinue and switch to metoprolol tartrate, amlodipine and hydralazine. Monitor blood pressure closely and adjust blood pressure medication as deemed necessary for blood pressure control. Defer to primary stroke team. Possible aspiration pneumonia. Still have low-grade fever, completed course of Zosyn. She is also influenza A positive, monitor and management per primary team. Hyperlipidemia, on statin. DVT prophylaxis, on Eliquis. Disposition. Continue inpatient disposition per primary team. Plan discussed in detail with RN, no family at the bedside. Discussed with Stroke JASWANT. Case discussed in detail with attending, Dr. Baker, who is in full agreement with the above plan of care. Dictated by: RIN DOMINGUEZ DNP Rin Dominguez DNP, COMMERCIAL PROJECT MANAGER, ACNP-BC, ANP-BC, MAILS SUPERVISOR-C Department of Cardiology Contact: Via [employer] Chat AJS / ORG FFT L ARTISTS' * Dea Eubanks MD - 06/23/2024 10:52 AM MODEL ARTISTS' Endocrinology Progress Note Assessment: The patient is a 78 y.o. female w PMH of HTN, DM2, HLD, afib, and hypothyroidism who was found to have an ischemic infarct of the R MCA territory at an OSH and presented as a transfer for possible thrombectomy. OOW for TNK at OSH. Also was comatose on arrival with concern for subclinical seizures initially. Extubated 06/11 and PEG tube placed 06/18. Endocrinology consulted for glycemic control. Problem list: #Type 2 Diabetes Mellitus - Home medications: Glimepiride 2 mg every day, Metformin 500 mg BID - A1C 7.51 on 06/11/24 - Now on bolus tube feeds fibersource HN 375ml 4x daily. (9AM, 1PM, 5PM, 9PM) - Discussed with primary nurse regarding timing of pre-meal insulin and tube feeds. Per primary nurse, pre-meal insulin was given prior to all tube feeds today and timings were documented incorrectly in MAR #Hypothyroidism - TSH 1.041 on arrival on 06/11/24 - In care everywhere, labs from 07/16/2023: TSH 8.710, free T4 1.04. At that time was taking levothyroxine 125 mcg daily - Currently on levothyroxine 100 mcg daily this admission Recommendations: - Increase lantus to 25 units daily - Increase lispro to 16 units pre-meal (4 times a day with bolus tube feeds) - Continue MD SSI (lispro Med ICF (2:50 for BG >150)) - Please make sure MD SSI is timed to match the tube feed timings Plan was discussed with Dr. Leonardo. Thank you for the opportunity to participate in the care of this patient. We will continue to follow. Please page with any questions or concerns. Dea Eubanks MD Internal Medicine | PGY-1 [facility] 06/23/2024 Date of Consult: 06/22/2024 Requesting Physician: Michelle Alves Jr., MD Consulting Physician: Dr. Cochran Reason for Consult: glycemic control History of Present Illness: The patient is a 78 y.o. female w PMH of HTN, DM2, HLD, afib, and hypothyroidism who was found to have an ischemic infarct of the R MCA territory at an OSH and presented as a transfer for possible thrombectomy. OOW for TNK at OSH. Also was comatose on arrival with concern for subclinical seizures initially. Extubated 06/11 and PEG tube placed 06/18. She is unsure about her home diabetic regimen or her compliance with the listed home medications. Unsure when she was diagnosed with DM but it is listed in her medical history dating back to 2020. Home medications: Glimepiride 2 mg every day, Metformin 500 mg BID. A1C 7.51 on 06/11/24. She reports no prior history of thyroid disease before this admission, but per chart review was on levothyroxine 125 mcg daily in Jun 2023. History: Medical: History reviewed. No pertinent past medical history. Surgical: Past Surgical History: Procedure Laterality Date ESOPHAGOGASTRODUODENOSCOPY 06/18/2024 EGD 06/18/2024 Mckenzie Ely MD [facility] Social: Social History Tobacco Use Smoking status: Never Passive exposure: Never Smokeless tobacco: Never Substance Use Topics Alcohol use: Not on file Family: No family history on file. Prior to admission medications No current outpatient medications Allergies Allergies Allergen Reactions Depo-Provera [Medroxyprogesterone Acetate] Unknown Review of Systems: Gen: No fever, chills, nightsweats, or fatigue. Skin: No rashes, sores, itching, or bruising. HEENT: No trauma, headache, or visual changes. No hearing loss, tinnitus, or vertigo. Resp: No wheezing, shortness or breath, cough, or hemoptysis. CV: No tachycardia, dyspnea on exertion, or orthopnea. No leg edema, or claudication GI: No nausea, vomiting, or abdominal pain. : No dysuria, hematuria, or incontinence. Msk: No myalgias or arthralgias. Neuro: No syncope, seizures, headaches, changes in sensation, or weakness. Heme: No easy bruising, bleeding, or lymphadenopathy. Endo: No heat or cold intolerance, hair loss, or weight changes. Psych: Not depressed or elevated mood, no anxiety. Physical Exam: Patient Vitals for the past 24 hrs: BP Temp Temp src Pulse Resp SpO2 06/23/24 0926 115/68 -- -- (!) 145 20 95 % 06/23/24 0925 115/68 -- -- (!) 121 (!) 24 95 % 06/23/24 0750 -- -- Axillary -- -- -- 06/23/24 0750 -- (!) 38.5 ?C (101.3 ?F) -- -- -- -- 06/23/24 0600 155/67 -- -- (!) 134 (!) 23 96 % 06/23/24 0500 -- -- -- (!) 119 22 95 % 06/23/24 0453 -- -- Oral -- -- -- 06/23/24 045 -- 37.6 ?C (99.6 ?F) -- -- -- -- 06/23/24 0430 (!) 157/117 -- -- -- -- -- 06/23/24 0400 146/72 -- -- (!) 115 (!) 24 96 % 06/23/24 0300 (!) 172/106 -- -- (!) 121 (!) 24 95 % 06/23/24 0200 (!) 204/93 -- -- (!) 145 (!) 26 97 % 06/23/24 0100 (!) 170/74 -- -- (!) 114 (!) 28 96 % 06/23/24 0045 145/68 -- -- (!) 135 (!) 25 96 % 06/23/24 0000 -- -- -- (!) 137 (!) 28 96 % 06/22/242358 -- -- Axillary -- -- -- 06/22/242358 -- 36.3 ?C (97.3 ?F) -- -- -- -- 06/22/24 2336 (!) 188/86 -- -- -- -- -- 06/22/24 2300 (!) 168/82 -- -- (!) 110 19 96 % 06/22/24 2200 (!) 167/76 -- -- (!) 101 22 96 % 06/22/24 2100 (!) 198/94 -- -- (!) 130 21 98 % 06/22/241999 -- -- -- (!) 114 20 98 % 06/22/24 193 -- -- Axillary -- -- -- 06/22/241929 -- 37.1 ?C (98.8 ?F) -- -- -- -- 06/22/24 1900 149/77 -- -- (!) 138 20 98 % 06/22/24 1740 157/88 -- -- (!) 101 22 98 % 06/22/24 1700 (!) 176/81 -- -- (!) 102 20 97 % 06/22/24 1622 -- -- Axillary -- -- -- 06/22/24 1622 -- 36.8 ?C (98.3 ?F) -- -- -- -- 06/22/24 1615 118/73 -- -- (!) 104 20 96 % 06/22/24 1600 -- -- -- -- 20 -- 06/22/24 1500 (!) 173/75 -- -- (!) 119 21 96 % 06/22/24 1459 (!) 173/75 -- -- (!) 104 18 96 % 06/22/24 1400 (!) 165/74 -- -- (!) 102 20 96 % 06/22/24 1326 -- -- Axillary -- -- -- 06/22/24 1326 -- 36.3 ?C (97.4 ?F) -- -- -- -- 06/22/24 1300 (!) 162/72 -- -- 100 20 (!) 86 % 06/22/24 1200 159/74 -- -- 100 20 100 % 06/22/24 1100 137/81 -- -- (!) 101 18 100 % Physical Exam Constitutional: The patient is not in acute distress. HENT: Normocephalic and atraumatic. Eyes: No scleral icterus, Extraocular movements intact , Conjunctivae normal, Pupils are equal, round, and reactive to light. Cardiovascular: Normal rate and regular rhythm with no added sounds Pulmonary: Pulmonary effort is normal. No respiratory distress. Normal breath sounds. No wheezing. Abdominal:Abdomen is soft., bowel sounds are normal. no distension. no abdominal tenderness. Skin:Skin is warm. Neurological: Alert and oriented, left sided facial droop Data: Pertinent Labs : Lab Results Component Value Date WBC 12.53 (H) 06/23/2024 Hgb 11.3 06/23/2024 Hct 34.7 06/23/2024 Plt Count 600 (H) 06/23/2024 Lab ResultsComponent Value Date Sodium Lvl 143 06/23/2024 Potassium Lvl 4.8 (H) 06/23/2024 Chloride Lvl 108 (H) 06/23/2024 CO2 Lvl 23.8 06/23/2024 BUN 52 (H) 06/23/2024 Creatinine Lvl 1.31 (H) 06/23/2024 Glucose Lvl 366 (H) 06/23/2024 POC Glu 382 (H) 06/23/2024 No results found for: "HGBA1C"No results found for: "TSH" Radiology Review: @[email or web address]@ Cosigned by Nikkie Cochran MD at 06/23/2024 8:32 PM CST L ARTISTS' L ARTISTS' Associated attestation - Nikkie Cochran MD - 06/23/2024 8:32 PM [facility]' I have personally interviewed and examined patient with resident, Dr. Eubanks. I have reviewed the evaluation and agree with issues, findings, and plan of care as documented in today's note. Ms. Henry is a 78-year-old woman with T2DM on bolus TEN (9 AM, 1 PM, 5 PM,and 9 PM). Increase lantus from 20 to 25 units. Increase lispro from 12 to 16 units 4 times daily with TEN. Recommend lispro Med ICF (2:50 for BG >150) 4 times daily with TEN. Plan discussed with primary team. Nikkie Cochran MD * Maisha Adams [facility] - 06/23/2024 10:15 AM MODEL ARTISTS' Images from the original note were not included. [facility] DYSPHAGIA TREATMENT Patient Name: Isabel Henry Today's Date: 06/23/2024 Room: [address] IMPRESSIONS: Pt was found in bed with eyes closed. Intermittent vocalizations observed. Speech intelligibility significantly decreased. Pt unable to follow commands despite max cues/encouragement. Seen for dysphagia management. Positioned pt upright and presented po trials of thin liquid via straw pipette. Pt expectorated all po trials despite cues/encouragement. Discontinued po trials due to poor participation. RECOMMENDATIONS: Suggest NPO with continuation of non-oral nutrition/hydration. [facility] will follow for dysphagia management and to determine pt's readiness for instrumental swallow assessment. Follow up with speech/language/cognitive evaluation when appropriate. Oral care: Suction toothbrush RN notified. PLAN: Treatment/Interventions: Cognitive communication functioning, Communication functioning, Swallow function Frequency: 3-4 times per week GENERAL INFORMATION: Behavior:Unable to follow commands Level of Consciousness: Lethargic Pain: Pain Assessment: CPOT Diet Prior to this Treatment: Long-Term Means of Alternative Nutrition & Hydration and NPO Preferred Language: Kyrgyz TREATMENT SUMMARY: Swallow Activities: Seen for dysphagia management. OUTCOME MEASURES: International Dysphagia Diet Standardization Initiative - IDDSI Solids - N/A Liquids - N/A IDDSI Level - 0 GOALS: Encounter Goals Encounter Goals (Active) LTG - Patient will improve on swallowing outcome measure (Not Progressing) Start: 06/12/24 Expected End: 07/10/24 STG - Improve airway protection (Not Progressing) Start: 06/12/24 Expected End: 07/10/24 STG - Participate in an instrumental swallow study (Not Progressing) Start: 06/12/24 Expected End: 07/10/24 Patient Education:Education Documentation No documentation found. Education Comments No comments found. If this is the last documented treatment, then it will signify discharge from acute care prior to discharge from the therapy service and will serve as the discharge summary. Therapy discharge recommendations are made by determining the patient's prior level of function, assessing current function level and establishing rehab potential. The overall discharge plan may be affected by input from Physicians, Care Coordination, medical condition/status, family support and insurance benefits. Maisha Adams CCC-SLP L ARTISTS' * Nancy Stanford, PT - 06/23/2024 10:10 AM [facility]DEL [facility]ISTS' Physical Therapy Treatment Session Note Patient Name: Isabel Henry Today's Date: 06/23/2024 Preferred Language: Kyrgyz Assessment & Plan Assessment: PT Assessment: Pt remains unresponsive, no movement to L side Medical Staff Made Aware: Yes Plan: PT Discharge Recommendations: shelter facility placement PT Recommended Transfer Status: Total assist Subjective Pt lying in bed in NAD Pain: 0/10 ObjectiveGeneral Visit Information: PT Last Visit PT Received On: 06/23/24 CognitionOrientation Level: Unable to assess TreatmentTherapeutic activity: Therapeutic Activity Therapeutic Activity Time Entry: Therapeutic Activity 1: Pt lying in bed, no eye opening, nonverbal. Neurochair set up to get pt OOB, noted pt soiled. Pt rolled for cleaning, noted significant redness and wounds (RN aware). Cleaned pt and applied paste, however pt then had another liquid BM. RN in room, pt cleaned again though appears to be having very frequent loose stools. Due to pt's skin breakdown on bottom and loose stools, decided not to transfer pt to chair. Pt was positioned on R side for comfort, left w/ all needs met. Pt was unresponsive throughout. Bed Mobility: Bed Mobility 1:Level of Assistance 1: Dependent Bed Mobility To/From: Roll left/right Outcome Measures: AM-PAC Basic Mobility:AM-PAC Basic Mobility Inpatient Turning in bed without bedrails: Total Lying on back to sitting on edge of flat bed: Total Bed to chair: Total Standing up from chair: Total Walk in room: Total Climbing 3-5 stairs: Total Mobility Inpatient Raw Score: 6 JH-HLM Goal: 2 Mobility: Highest Level of Mobility Performed (JH-HLM)-HLM Goal: 2 Modified Craig Patient Education: Education Documentation No documentation found. Education Comments No comments found. Goals:Encounter Goals Encounter Goals (Active) Patient will be min A w/ bed mobility Start: 06/12/24 Expected End: 06/26/24 Patient will be mod A w/ transfers Start: 06/12/24 Expected End: 06/26/24 Patient will be mod A w/ ambulation 10' w/ LRAD Start: 06/12/24 Expected End: 06/26/24 Treatment Note: If this is the last documented treatment, then it will signify discharge from acute care prior to discharge from the therapy service and will serve as the discharge summary. Nancy Stanford, PT L ARTISTS' * Concepción Mukherjee NP - 06/23/2024 7:58 AM MODEL ARTISTS' Subjective Afib w/RVR overnight, received Metoprolol 5mg IVP x3 Objective Last Recorded Vitals Blood pressure 155/67, pulse (!) 134, temperature (!) 38.5 ?C (101.3 ?F), resp. rate (!) 23, height 1.55 m (5' 1.02"), weight 61 kg (134 lb 7.7 oz), SpO2 96%. Physical Exam: GENERAL: well nourished HEENT: - Normocephalic and atraumatic; MMM, LUNGS - Clear to auscultation bilaterally with no wheezes CV - tachycardia, intact peripheral pulses ABDOMEN - Soft, nontender, nondistended with normoactive BS Neuro: Mental Status: Opens eyes to voice, able to say her name and following commands Speech: dysarthria CN: PERRL 2 mm/ sluggish, R gaze does not cross midline, R FD , face sensation is intact Motor: RUE/RLE AG no drift, LUE WD, LLE WD Sensation: decreased on L Side Coordination: deferred Diagnostic Results CT BRAIN WO IV CONTRAST Result Date: 06/12/2024 EXAM: CT BRAIN WITHOUT CONTRAST DATE: 06/12/2024 15:31 INDICATION: exam change COMPARISON: CT brain without contrast 06/11/2024, MRI brain 06/11/2024 TECHNIQUE: Axial CT images of the brain were obtained. Sagittal and coronal reformats. IV contrast: None DLP: Refer to CT protocol form FINDINGS: Evolving infarct in the right MCA territory infarct that appears increasingly hypodense and areas of evolving cytotoxic edema (series 2 image 13, 20). There is also increased associated effacement of the right lateral ventricle. Leftward midline shift by 5 to 6 mm, mildly increased. Subtle curvilinear hyperdensities in the area of infarction likely correspond to areas of petechial hemorrhage on prior MRI. Chronic lacunar infarcts in the left basal ganglia/camp radiata. Chronic lacunar infarcts in the left thalamus. Periventricular hypodensities likely freight representative of chronic microvascular ischemic disease. Mild diffuse brain parenchymal volume loss with mild ex vacuo ventriculomegaly.. No acute interval osseous changes. Mild opacification in the left maxillary sinus with mucosal thickening. Sclerosis of the left maxillary sinus steiner likely represent the chronic sequela of sinusitis the rest of the paranasal sinuses are predominantly clear. IMPRESSION: 1. Evolving subacute infarct of the right MCA territory associated cytotoxic edema subtle areas of petechial hemorrhagic transformation better appreciated on prior MRI. Increased effacement of the right lateral ventricle with mildly increased midline shift to the left 2. Chronic microangiopathic changes. Chronic infarct in the left basal ganglia/camp radiata. This report was dictated by a Private Duty Aide/Fellow/JASWANT: Vijay Conrad RES, MD 06/12/2024 16:11 This report was dictated by a Private Duty Aide/Fellow/Physician Regional Maintenance Manager. I have personally reviewed the images as well as the interpretation and agree with the findings. Report finalized by: Carol Ann Harper MD 06/12/2024 16:31 CT BRAIN WO IV CONTRAST Result Date: 06/11/2024 EXAM: CT BRAIN WITHOUT CONTRAST DATE: 06/11/2024 1:38 INDICATION: Rm2 occlusion COMPARISON: Same day CTA head. CT head without contrast performed earlier the same day at outside institution TECHNIQUE: Axial CT images of the brain were obtained. Sagittal and coronal reformats. IV contrast: None DLP: Refer to CT protocol form FINDINGS: Loss of mosher-white matter differentiation involving the M1, M2, M4, and M5 regions of the right MCA which has progressed from the outside study.. There is cortical hyperdensity with effacement of adjacent sulci involving the M3 and M6 regions and the posterior insula which has developed over the interval since the outside study Likely chronic infarcts involving the left basal ganglia . Periventricular and supratentorial white matter hypodensities are present. Diffuse cerebral volume loss with compensatory ex vacuo dilation of the ventricular system. No intracranial hemorrhage is identified. The skull base, calvarium, and included facial bones are unremarkable. Mucosal thickening of the left maxillary sinus. Partially visualized endotracheal and enteric tubes.. IMPRESSION: Acute infarction of the right MCA territory with evidence of possible reperfusion, petechial hemorrhagic transformation, and/or contrast enhancement in the territory of the inferior division The Critical findings of acute ischemia were communicated to and acknowledged by Dr. Garces via telephone at 06/11/2024 220 by Carine Lvoe RES. The above findings as well as the CTA findings were also discussed with the neuroendovascular team via telephone at 2:40 a.m. on 06/11/2024. This report was dictated by a Private Duty Aide/Fellow/Physician Regional Maintenance Manager. I have personally reviewed the images as well as the interpretation and agree with the findings. Report finalized by: Marco A Ng MD 06/11/2024 8:10 Echo (TTE) complete 06/11/2024 Interpretation Summary Left Ventricle: Left ventricle is smaller than normal. Mildly increased wall thickness in the left ventricle. Findings consistent with concentric remodeling. Mildly reduced systolic function with an estimated EF of 40 - 45%. Global longitudinal strain is reduced. LV GLS is -10.7%. Abnormal diastolic function of the left ventricle. Right Ventricle: Right ventricle size is normal. Moderately reduced systolic function in the right ventricle. Left Atrium: Left atrium is moderately dilated. Right Atrium: Right atrium size is normal. Aortic Valve: Aortic valve is trileaflet. Mildly thickened leaflets in the aortic valve. Leaflet motion is normal. No aortic regurgitation present. No aortic stenosis present. Tricuspid Valve: Tricuspid valve is structurally normal. Mild tricuspid regurgitation present. RVSP is 48.00 mmHg. Mitral Valve: Mildly calcified leaflets in the mitral valve. Mild mitral annular calcification. Mild mitral regurgitation present. Pulmonic Valve: Pulmonic valve is structurally normal. Aorta: Normal sized aortic root and ascending aorta present. IVC/SVC: IVC diameter is less than or equal to 21 mm and decreases less than 50% during inspiration; therefore the estimated right atrial pressure is intermediate (~8 mmHg). Hepatic veins shows systolic flow reversal suggestive of restrictive filling. Pericardium: No pericardial effusion present. ECG 12 lead Result Date: 06/14/2024 Impression: ATRIAL FIBRILLATION WITH A RAPID VENTRICULAR RESPONSE ABNORMAL ECG WHEN COMPARED WITH ECG OF 12-JUN-2024 07:54, NO SIGNIFICANT CHANGE Confirmed by Don Mead ([id number]) on 06/14/2024 6:36:47 PM ECG 12 leadResult Date: 06/12/2024 Impression: ATRIAL FIBRILLATION ABNORMAL QRS-T ANGLE, CONSIDER PRIMARY T WAVE ABNORMALITY PROLONGED QT INTERVAL OR TU FUSION, CONSIDER MYOCARDIAL DISEASE, ELECTROLYTE IMBALANCE, OR DRUG EFFECTS NO PREVIOUS ECGS AVAILABLE Confirmed by Juanpablo Mueller ([id number]) on 06/12/2024 7:56:30 PM 78 year old female with a history of HTN, DM II, HLD and hypothyroidism who was found to have an ischemic infarct of the right MCA territory at an outside hospital who presented as a transfer for possible thrombectomy. LKN at 5 PM on 06/10. OOW for TNK at OSH. Patient was intubated at the OSH for airway protection. Patient under arrival was comatose, not completely explained by the Right MCA stroke. Possible due to being on sedatives at the OSH, or concern for subclinical seizures. Patient is in NICU for close observation. Patient received CT head upon arrival and was found to have a ischemic stroke in right M2 distribution with aspects of 6. CTA showed a right MCA infarct however as per radiology no stump was found. CT perfusion was obtained and found to have the penumbra/infarct ratio almost 1. The mismatch was 3 ml. There was a concern for subclinical seizures in a setting of clinical exam disproportionate to Neuroimaging findings - keppra load was ordered and given. Ativan 2 mg was administered. EEG no seizures. MRI brain wo acute infarct in R MCA with gyral hemorrhagic transformation.TTE EF 40-45, concentric remodeling , left atrium moderately dilated , no thrombus. PEG placed 06/18 with no complications. 06/23 Afib w/RVR requiring Metoprolol 5mg IVP x3, Dr. Baker consulted. Assessment & Plan Right middle cerebral artery stroke (HCC) Acuity: Acute Etiology: Cardioembolic (new onset A-fib) -S/p Keppra 60mg/kg, c/w 750 BID -ASA 81 mg d;chelo 06/19-> Eliquis 5 mg BID -statin -cvEEG no seizures - dc'ed Keppra -MRI brain wo acute infarct in R MCA with gyral hemorrhagic transformation -TTE EF 40-45, concentric remodeling , left atrium moderately dilated , no thrombus -Modafinil 100 mg daily -SBP< 140 -PT/OT/ST Dysarthria-ST Dysphagia- TF - PEG placed 06/18 Hemiplegia (CMS/HCC) (HCC)- PT/OT Acute respiratory failure (HCC)- vent management per ICU -> extubated 06/11 - on RA Atrial fibrillation (CMS/HCC) (HCC)- Eliquis 5 mg BID - 06/23 s/p Metoprolol 5mg IVP x3 - rate control - coreg 25mg BID ->06/23 Metoprolol tartrate 50mg q6hrs - Digoxin 0.5 IVP x1 - EP consulted, Dr. Baker appreciate recs Hypertension- SBP < 140 - Lisinopril 20 mg BID + Coreg 25 mg BID d'chelo->06/23 Metoprolol tartrate 25 mg q12hrs+ Amlodipine 10 mg daily+ Hydratazine 25 mg TID - titrate oral agents Hyperlipidemia- Statin - LDL goal < 70 Diabetes mellitus (HCC)- SSI - Endo consulted: Glargine 20 daily, lispro 12 pre-meal 4x a day, MD BRYANT Aspiration pneumonia (CMS/HCC) (HCC)- Fever 101 on 06/13 - Started on zosyn 06/13 -06/18- completed course - Rx cultures 06/13 - NGTD Current Diet: NPO Diet Dispo: [facility] Pink-BCStroke Team B MAILS SUPERVISOR [id number] 7-5PM, Please call [phone] after 5PM Case discussed with Dr. Larson who agrees with the plan of care. Cosigned by Venkatesh Larson MD at 06/24/2024 7:42 AM MODEL ARTISTS' L ARTISTS' L ARTISTS' L ARTISTS' L ARTISTS' Associated attestation - Venkatesh Larson MD - 06/24/2024 7:42 AM CST STROKE NEUROLOGY ATTENDING ATTESTATION I have personally seen and evaluated the patient on 06/23/2024, and I waspresent for see critical points of the encounter. I have discussed the case with and reviewed the provider note detailed above. I have personally viewed the patient's radiographic studies, laboratory tests, and medications. I agree with the above documented history, exam, assessment and plan. Please see note below for any additions and/or exceptions to the note above. 78-year-old female with history of HTN, DM, HLD, hypothyroidism suffered aright MCA ischemic stroke on June 11, hospital course has been complicated by subclinical seizure concern with ultimately continuous video EEG negative, aspiration pneumonia treated with Zosyn and completed course, and most predominantly hemodynamic instability with A-fib with RVR. Suspected stroke etiology is new onset atrial fibrillation. Patient iscurrently on Eliquis 5 mg twice daily. Also being treated with high-dose statin. Was prior treated with Keppra however EEG negative and therefore Keppra discontinued. In regards to stroke workup, TTE with EF 40 to 45%, concentric remodeling, left atrial moderately dilated, no thrombus. PEG was placed on 06/18/2024 due to severe dysphagia posterior. Today patient remained in refractory A-fib RVR despite multiple pushes of IV metoprolol and up titration of p.o. metoprolol to 50 mg every 6. We discussed this with EP cardiology and ultimately decision was made to start digoxin 0.5 mg IV push. We will continue digoxin therapy at the discretion of EP cardiology. Patient also being managed for her diabetes, on glargine 20 daily, lispro 12 Premeal 4 times a day and moderate sliding scale. amantadine, 100 mg, Per G Tube, DailyamLODIPine, 10 mg, Per G Tube, Daily apixaban, 5 mg, Per G Tube, q12h SKYLA atorvastatin, 80 mg, Per G Tube, Daily cefTRIAXone, 1 g, Intravenous, q24h Docusate Sodium, 100 mg, Per G Tube, q12h Enteral Free water Flush, 60 mL, Nasogastric, q4h Fibersource HN, 375 mL, Per PEG Tube, 4x daily hydrALAZINE, 50 mg, Per G Tube, TID insulin glargine, 25 Units, Subcutaneous, Every evening insulin lispro, 16 Units, Subcutaneous, 4x daily levothyroxine, 100 mcg, Per G Tube, Daily 630 lisinopril, 20 mg, Per G Tube, BID metoprolol tartrate, 50 mg, Per G Tube, q6h SKYLA senna, 10 mL, Per PEG Tube, q12h sodium chloride, 10 mL, Intravenous, q12h SKYLA sodium chloride, 250 mL, Intravenous, Once PRN medications: acetaminophen, dextrose, dextrose, glucagon, insulin lispro, ipratropium-albuterol, labetalol, LORazepam, metoprolol tartrate, sodium chloride PROBLEM LIST & PLAN:Principal Problem: Right middle cerebral artery stroke (HCC) Active Problems: Acute respiratory failure (HCC) Hypertension Hyperlipidemia Dysphagia Dysarthria Hemiplegia (CMS/HCC) (HCC) Atrial fibrillation (CMS/HCC) (HCC) Diabetes mellitus (HCC) Aspiration pneumonia (CMS/HCC) (HCC) UTI (urinary tract infection) Influenza A Encounter took 40 minutes of total cumulative time examining the patient at the bedside and in discussion regarding plan of care and addressing questions and concerns, reviewing the EMR and paper chart, reviewing diagnostic studies, laboratory values, and recommendations. I provided a substantive portion of the care of this patient. I personally performed the MDM for this encounter. Venkatesh Larson MD, RPNIAssistant Professor, Vascular Neurology [facility] [email or web address] Office contact: [phone] Stroke Clinic: [phone] * Lauren Renteria, OT - 06/22/2024 4:37 PM MODEL ARTISTS' Treatment Session Note Patient Name: Isabel Henry Today's Date: 06/22/2024 Preferred Language: Kyrgyz Assessment & Plan Assessment: Pt is progressing this session with level of arousal. Pt os completed bed mobility and sit to stand with Mod A and Max verbal cues for sequencing. Pt is also completing sitting EOB for 10 minutes with CGA-Booker. Pt is limited by activity tolerance, balance, ADL completion, safety awareness, global strength, and left side inattention. Pt will continue to benefit from acute OT services to address deficits. Precautions: UE Weight Bearing Status: FWB LE Weight Bearing Status: FWB Plan: Treatment Plan/Goals Established with Patient/Caregiver: Yes OT Plan: Skilled OT OT Frequency: 3-5 times per week until discharge OT Discharge Recommendations: Inpatient rehab facility placement OT Planned Treatments: Activities of Daily Living, Balance training, Coordination, Energy conservation training, Patient education, Safety education, Therapeutic activities, Therapeutic exercises OT Duration: Discharge Subjective Pt stated, "I love my grand daughter" Pain: Pain Assessment: Castaneda-Romano FACES (06/22/2024 11:42 AM) Objective Treatment Self-Care: Bed Mobility: Bed Mobility 1Level of Assistance 1: Partial/Mod assistance Bed Mobility Comments 1: Mod A for trunkal support to EOB Bed Mobility To/From: Supine to sit on EOB Assistive Devices And Adaptive Equipments: No device Bed Mobility 2 Level of Assistance 2: Partial/Mod assistance Bed Mobility Comments 2: Mod A Bed Mobility To/From: Sitting EOB to supine Assistive Devices And Adaptive Equipments: No device Transfers: Transfer 1Level of Assistance 1: Partial/Mod assistance Trials/Comments 1: Completed with Mod A for sit to stand, mild lean to the left though maintianed for 10 seconds Transfer To/From: [id number] Assistive Devices And Adaptive Equipments: No device Therapeutic ActivityTherapeutic Activity Time Entry: 27 Therapeutic Activity 1: bed mobility with Mod A, more assistance needed for trunkal support Therapeutic Activity 2: Sitting EOB for 10 minutes with CGA- Booker Therapeutic Activity 3: sit to stand with Mod A for 10 seconds AM-PAC Daily Activity:Putting on and taking off regular lower body clothing: A Lot Bathing (including washing, rinsing, drying): A Lot Toileting, which includes using toilet, bedpan or urinal: A Lot Putting on and taking off regular upper body clothing: A Lot Taking care of personal grooming such as brushing teeth: A Lot Eating Meals: A Lot AM-PAC Daily Activity Raw Score: 12 Patient Education:Education Documentation No documentation found. Education Comments No comments found. Goals:Encounter Goals Encounter Goals (Active) Pt will tolerate sitting EOB for > 10 minutes with Min A and use of one UE for support in preparation for OOB activity Start: 06/12/24 Expected End: 06/25/24 Pt will complete bed to toilet transfer to [facility] with Min A using AE as needed in preparation for household ambulation Start: 06/12/24 Expected End: 06/26/24 Pt will complete upper and lower body dressing task with Mod A using AE as needed. Start: 06/12/24 Expected End: 06/26/24 Patient will don UE orthotic with Mod A assist in order to promote functional positioning of UE. Start: 06/12/24 Expected End: 06/26/24 Treatment Note: If this is the last documented treatment, then it will signify discharge from acute care prior to discharge from the therapy service and will serve as the discharge summary. Lauren Renteria OT L ARTISTS' * Michelle Alves Jr., MD - 06/22/2024 2:58 PM [facility]DEL ARTISTS' Subjective NAEON Objective Last Recorded Vitals Blood pressure 137/81, pulse (!) 101, temperature 36.3 ?C (97.4 ?F), resp. rate 18, height 1.55 m (5' 1.02"), weight 61 kg (134 lb 7.7 oz), SpO2 100%. Physical Exam: GENERAL: well nourished HEENT: - Normocephalic and atraumatic; MMM, LUNGS - Clear to auscultation bilaterally with no wheezes CV - tachycardia, intact peripheral pulses ABDOMEN - Soft, nontender, nondistended with normoactive BS Neuro: Mental Status: Opens eyes to voice, able to say her name and following commands Speech: dysarthria CN: PERRL 2 mm/ sluggish, R gaze does not cross midline, R FD , face sensation is intact Motor: RUE/RLE AG no drift, LUE WD, LLE WD Sensation: decreased on L Side Coordination: deferred Diagnostic Results CT BRAIN WO IV CONTRAST Result Date: 06/12/2024 EXAM: CT BRAIN WITHOUT CONTRAST DATE: 06/12/2024 15:31 INDICATION: exam change COMPARISON: CT brain without contrast 06/11/2024, MRI brain 06/11/2024 TECHNIQUE: Axial CT images of the brain were obtained. Sagittal and coronal reformats. IV contrast: None DLP: Refer to CT protocol form FINDINGS: Evolving infarct in the right MCA territory infarct that appears increasingly hypodense and areas of evolving cytotoxic edema (series 2 image 13, 20). There is also increased associated effacement of the right lateral ventricle. Leftward midline shift by 5 to 6 mm, mildly increased. Subtle curvilinear hyperdensities in the area of infarction likely correspond to areas of petechial hemorrhage on prior MRI. Chronic lacunar infarcts in the left basal ganglia/camp radiata. Chronic lacunar infarcts in the left thalamus. Periventricular hypodensities likely freight representative of chronic microvascular ischemic disease. Mild diffuse brain parenchymal volume loss with mild ex vacuo ventriculomegaly.. No acute interval osseous changes. Mild opacification in the left maxillary sinus with mucosal thickening. Sclerosis of the left maxillary sinus steiner likely represent the chronic sequela of sinusitis the rest of the paranasal sinuses are predominantly clear. IMPRESSION: 1. Evolving subacute infarct of the right MCA territory associated cytotoxic edema subtle areas of petechial hemorrhagic transformation better appreciated on prior MRI. Increased effacement of the right lateral ventricle with mildly increased midline shift to the left 2. Chronic microangiopathic changes. Chronic infarct in the left basal ganglia/camp radiata. This report was dictated by a Private Duty Aide/Fellow/JASWANT: Vijay Conrad RES, MD 06/12/2024 16:11 This report was dictated by a Private Duty Aide/Fellow/Physician Regional Maintenance Manager. I have personally reviewed the images as well as the interpretation and agree with the findings. Report finalized by: Carol Ann Harper MD 06/12/2024 16:31 CT BRAIN WO IV CONTRAST Result Date: 06/11/2024 EXAM: CT BRAIN WITHOUT CONTRAST DATE: 06/11/2024 1:38 INDICATION: Rm2 occlusion COMPARISON: Same day CTA head. CT head without contrast performed earlier the same day at outside institution TECHNIQUE: Axial CT images of the brain were obtained. Sagittal and coronal reformats. IV contrast: None DLP: Refer to CT protocol form FINDINGS: Loss of mosher-white matter differentiation involving the M1, M2, M4, and M5 regions of the right MCA which has progressed from the outside study.. There is cortical hyperdensity with effacement of adjacent sulci involving the M3 and M6 regions and the posterior insula which has developed over the interval since the outside study Likely chronic infarcts involving the left basal ganglia . Periventricular and supratentorial white matter hypodensities are present. Diffuse cerebral volume loss with compensatory ex vacuo dilation of the ventricular system. No intracranial hemorrhage is identified. The skull base, calvarium, and included facial bones are unremarkable. Mucosal thickening of the left maxillary sinus. Partially visualized endotracheal and enteric tubes.. IMPRESSION: Acute infarction of the right MCA territory with evidence of possible reperfusion, petechial hemorrhagic transformation, and/or contrast enhancement in the territory of the inferior division The Critical findings of acute ischemia were communicated to and acknowledged by Dr. Garces via telephone at 06/11/2024 220 by Carine Love RES. The above findings as well as the CTA findings were also discussed with the neuroendovascular team via telephone at 2:40 a.m. on 06/11/2024. This report was dictated by a Private Duty Aide/Fellow/Physician Regional Maintenance Manager. I have personally reviewed the images as well as the interpretation and agree with the findings. Report finalized by: Marco A Ng MD 06/11/2024 8:10 Echo (TTE) complete 06/11/2024 Interpretation Summary Left Ventricle: Left ventricle is smaller than normal. Mildly increased wall thickness in the left ventricle. Findings consistent with concentric remodeling. Mildly reduced systolic function with an estimated EF of 40 - 45%. Global longitudinal strain is reduced. LV GLS is -10.7%. Abnormal diastolic function of the left ventricle. Right Ventricle: Right ventricle size is normal. Moderately reduced systolic function in the right ventricle. Left Atrium: Left atrium is moderately dilated. Right Atrium: Right atrium size is normal. Aortic Valve: Aortic valve is trileaflet. Mildly thickened leaflets in the aortic valve. Leaflet motion is normal. No aortic regurgitation present. No aortic stenosis present. Tricuspid Valve: Tricuspid valve is structurally normal. Mild tricuspid regurgitation present. RVSP is 48.00 mmHg. Mitral Valve: Mildly calcified leaflets in the mitral valve. Mild mitral annular calcification. Mild mitral regurgitation present. Pulmonic Valve: Pulmonic valve is structurally normal. Aorta: Normal sized aortic root and ascending aorta present. IVC/SVC: IVC diameter is less than or equal to 21 mm and decreases less than 50% during inspiration; therefore the estimated right atrial pressure is intermediate (~8 mmHg). Hepatic veins shows systolic flow reversal suggestive of restrictive filling. Pericardium: No pericardial effusion present. ECG 12 lead Result Date: 06/21/2024 Impression: ATRIAL FIBRILLATION WITH A RAPID VENTRICULAR RESPONSE ABNORMAL ECG WHEN COMPARED WITH ECG OF 12-JUN-2024 23:20, NO SIGNIFICANT CHANGE WAS FOUND 78 year old female with a history of HTN, DM II, HLD and hypothyroidism who was found to have an ischemic infarct of the right MCA territory at an outside hospital who presented as a transfer for possible thrombectomy. LKN at 5 PM on 06/10. OOW for TNK at OSH. Patient was intubated at the OSH for airway protection. Patient under arrival was comatose, not completely explained by the Right MCA stroke. Possible due to being on sedatives at the OSH, or concern for subclinical seizures. Patient is in NICU for close observation. Patient received CT head upon arrival and was found to have a ischemic stroke in right M2 distribution with aspects of 6. CTA showed a right MCA infarct however as per radiology no stump was found. CT perfusion was obtained and found to have the penumbra/infarct ratio almost 1. The mismatch was 3 ml. There was a concern for subclinical seizures in a setting of clinical exam disproportionate to Neuroimaging findings - keppra load was ordered and given. Ativan 2 mg was administered. EEG no seizures. MRI brain wo acute infarct in R MCA with gyral hemorrhagic transformation.TTE EF 40-45, concentric remodeling , left atrium moderately dilated , no thrombus. PEG placed 06/18 with no complications, currently medically ready for discharge. Assessment & Plan Right middle cerebral artery stroke (HCC) Acuity: Acute Etiology: Cardioembolic (new onset A-fib) -S/p Keppra 60mg/kg, c/w 750 BID -ASA 81 mg d;chelo 06/19-> Started Eliquis 5 mg BID -statin -cvEEG no seizures - dc'ed Keppra -MRI brain wo acute infarct in R MCA with gyral hemorrhagic transformation -TTE EF 40-45, concentric remodeling , left atrium moderately dilated , no thrombus -Modafinil 100 mg daily -SBP< 140 -PT/OT/ST Dysarthria-ST Dysphagia- TF - PEG placed 06/18 Hemiplegia (CMS/HCC) (HCC)- PT/OT Acute respiratory failure (HCC)- vent management per ICU -> extubated 06/11 - on RA Atrial fibrillation (CMS/HCC) (HCC)- Eliquis 5 mg BID - rate control - coreg 25mg BID Hypertension- SBP < 140 - Lisinopril 20 mg BID + Coreg 25 mg BID - Will add amlodipine 10mg - titrate oral agents Hyperlipidemia- Statin - LDL goal < 70 Diabetes mellitus (HCC)- SSI - Endo consulted: Glargine 20 daily, lispro 12 pre-meal 4x a day, MD BRYANT Aspiration pneumonia (CMS/HCC) (HCC) - Fever 101 on 06/13 - Started on zosyn 06/13 -06/18- completed course - Rx cultures 06/13 - NGTD Current Diet: NPO Diet Dispo: SNF Cosigned by Franklin Orosco MD at 06/22/2024 3:33 PM MODEL ARTISTS' L ARTISTS' L ARTISTS' Associated attestation - Franklin Orosco MD - 06/22/2024 3:33 PM MODEL ARTISTS' STROKE ATTENDING ADDENDUM I have reviewed the history and pertinent imaging studies and test results. I have personally examined the patient. I discussed with the MAILS SUPERVISOR, PA, or resident and agree with the findings and plan, with any changes or additional recommendations noted below. I have personally viewed the patient's radiographic studies and laboratory tests. Please refer above to the detailed note. Patient transferred from floor to stroke unit for A-fib with RVR. Cerebral infarction involving right MCA territory.Likely etiology cardioembolic from new onset A-fib. Atrial fibrillation with RVR. -Eliquis and statin for secondary stroke prevention today. Best medical therapy including control of underlying vascular risk factors(HTN, HLD, DM), Mediterranean diet and physical activity/exercise for secondary stroke prevention. I spent a total of 55 min in evaluation and assessment of this patient, personally viewed the patient's radiographic studies and laboratory tests and included discussion regarding plan of care and addressing questions and concerns. Franklin Orosco MD [employer], Stroke Division Dept of Neurology [facility] [place] Materialise * Gerson Guardado LMSW - 06/22/2024 1:55 PM MODEL ARTISTS' Nutrition Recs: Jevity 1.2 @ 375 ml (1.5 cans) qid; fwf @ 60 ml before and after feeds (provides 1800 kcal, 83 g pro) L ARTISTS' * Nery Goldstein RN - 06/22/2024 1:44 PM MODEL ARTISTS' CASE MANAGEMENT ROUTINE DISCHARGE PLAN NOTE LOS: 11 Barriers to Discharge: BP control DISCHARGE PLAN A: [facility] [place] DISCHARGE PLAN B: Home with PATRICIA: 06/23 L ARTISTS' * Nancy Stanford, NORMA - 06/22/2024 11:15 AM [facility] Physical Therapy Treatment Session Note Patient Name: Isabel Henry Today's Date: 06/22/2024 Preferred Language: Kyrgyz Assessment & Plan Assessment: PT Assessment: Pt remains nonverbal, unable to follow commands, generally lethargic throughout session. WIll continue to follow, rec inpatient post acute therapy Medical Staff Made Aware: Yes Plan: PT Frequency: 2-3 times per week until discharge PT Discharge Recommendations: shelter facility placement PT Recommended Transfer Status: Total assist Subjective Pt lying in bed, appeared to be sleeping Pain: 0/10 Objective General Visit Information: PT Last Visit PT Received On: 06/22/24 Cognition Overall Cognitive Status: Impaired Orientation Level: Unable to assess TreatmentTherapeutic activity: Therapeutic Activity Therapeutic Activity Time Entry: 15 Therapeutic Activity 1: Lines organized, VSS. Pt unable to speak, only able to open eyes a few seconds at a time but did not track or attend to PT. She was assisted to sit EOB w/ total A to try and increase RENY. She remained w eyes closed, though only required min A to maintain sitting. She sat a few minutes, no increase in RENY, pt still nonverbal, unable to follow commands. She was assisted to stand w/ total A, pt did not assist so pt was assisted back to sitting then supine. She was positioned for comfort in bed w/ all needs met Bed Mobility: Bed Mobility 1:Level of Assistance 1: Dependent Bed Mobility To/From: Supine to sit on EOB, Sitting EOB to supine Transfers: Transfers 1: Level of Assistance 1: Dependent Transfer To/From: [id number] Outcome Measures: AM-PAC Basic Mobility:AM-PAC Basic Mobility Inpatient Turning in bed without bedrails: None Lying on back to sitting on edge of flat bed: A Little Bed to chair: None Standing up from chair: None Walk in room: None Climbing 3-5 stairs: None Mobility Inpatient Raw Score: 23 -[facility] Goal: 7 Patient Education:Education Documentation No documentation found. Education Comments No comments found. Goals:Encounter Goals Encounter Goals (Active) Patient will be min A w/ bed mobility Start: 06/12/24 Expected End: 06/26/24 Patient will be mod A w/ transfers Start: 06/12/24 Expected End: 06/26/24 Patient will be mod A w/ ambulation 10' w/ LRAD Start: 06/12/24 Expected End: 06/26/24 Treatment Note: If this is the last documented treatment, then it will signify discharge from acute care prior to discharge from the therapy service and will serve as the discharge summary. Nancy Stanford, PT L ARTISTS' * Gerson Guardado LMSW - 06/22/2024 9:18 AM MODEL ARTISTS' 06/22/24 0900 Discharge Planning Discharge Planning Comments Updated clinicals uploaded to [facility]. Patient is pending medical clearance. Facility only has [facility] and will follow up with nutrition to ensure that is fine. Gerson Guardado LMSW [phone] L ARTISTS' * Michelle Alves Jr., MD - 06/21/2024 7:28 AM MODEL ARTISTS' Subjective NAEON Objective Last Recorded Vitals Blood pressure 147/65, pulse (!) 103, temperature 37.2 ?C (98.9 ?F), resp. rate 20, height 1.55 m (5' 1.02"), weight 61 kg (134 lb 7.7 oz), SpO2 96%. Physical Exam: GENERAL: well nourished HEENT: - Normocephalic and atraumatic; MMM, LUNGS - Clear to auscultation bilaterally with no wheezes CV - tachycardia, intact peripheral pulses ABDOMEN - Soft, nontender, nondistended with normoactive BS Neuro: Mental Status: Opens eyes to voice, able to say her name and following commands Speech: dysarthria CN: PERRL 2 mm/ sluggish, R gaze does not cross midline, R FD , face sensation is intact Motor: RUE/RLE AG no drift, LUE WD, LLE WD Sensation: decreased on L Side Coordination: deferred Diagnostic Results CT BRAIN WO IV CONTRAST Result Date: 06/12/2024 EXAM: CT BRAIN WITHOUT CONTRAST DATE: 06/12/2024 15:31 INDICATION: exam change COMPARISON: CT brain without contrast 06/11/2024, MRI brain 06/11/2024 TECHNIQUE: Axial CT images of the brain were obtained. Sagittal and coronal reformats. IV contrast: None DLP: Refer to CT protocol form FINDINGS: Evolving infarct in the right MCA territory infarct that appears increasingly hypodense and areas of evolving cytotoxic edema (series 2 image 13, 20). There is also increased associated effacement of the right lateral ventricle. Leftward midline shift by 5 to 6 mm, mildly increased. Subtle curvilinear hyperdensities in the area of infarction likely correspond to areas of petechial hemorrhage on prior MRI. Chronic lacunar infarcts in the left basal ganglia/camp radiata. Chronic lacunar infarcts in the left thalamus. Periventricular hypodensities likely freight representative of chronic microvascular ischemic disease. Mild diffuse brain parenchymal volume loss with mild ex vacuo ventriculomegaly.. No acute interval osseous changes. Mild opacification in the left maxillary sinus with mucosal thickening. Sclerosis of the left maxillary sinus steiner likely represent the chronic sequela of sinusitis the rest of the paranasal sinuses are predominantly clear. IMPRESSION: 1. Evolving subacute infarct of the right MCA territory associated cytotoxic edema subtle areas of petechial hemorrhagic transformation better appreciated on prior MRI. Increased effacement of the right lateral ventricle with mildly increased midline shift to the left 2. Chronic microangiopathic changes. Chronic infarct in the left basal ganglia/camp radiata. This report was dictated by a Private Duty Aide/Fellow/JASWANT: Vijay Conrad RES, MD 06/12/2024 16:11 This report was dictated by a Private Duty Aide/Fellow/Physician Regional Maintenance Manager. I have personally reviewed the images as well as the interpretation and agree with the findings. Report finalized by: Carol Ann Harper MD 06/12/2024 16:31 CT BRAIN WO IV CONTRAST Result Date: 06/11/2024 EXAM: CT BRAIN WITHOUT CONTRAST DATE: 06/11/2024 1:38 INDICATION: Rm2 occlusion COMPARISON: Same day CTA head. CT head without contrast performed earlier the same day at outside institution TECHNIQUE: Axial CT images of the brain were obtained. Sagittal and coronal reformats. IV contrast: None DLP: Refer to CT protocol form FINDINGS: Loss of mosher-white matter differentiation involving the M1, M2, M4, and M5 regions of the right MCA which has progressed from the outside study.. There is cortical hyperdensity with effacement of adjacent sulci involving the M3 and M6 regions and the posterior insula which has developed over the interval since the outside study Likely chronic infarcts involving the left basal ganglia . Periventricular and supratentorial white matter hypodensities are present. Diffuse cerebral volume loss with compensatory ex vacuo dilation of the ventricular system. No intracranial hemorrhage is identified. The skull base, calvarium, and included facial bones are unremarkable. Mucosal thickening of the left maxillary sinus. Partially visualized endotracheal and enteric tubes.. IMPRESSION: Acute infarction of the right MCA territory with evidence of possible reperfusion, petechial hemorrhagic transformation, and/or contrast enhancement in the territory of the inferior division The Critical findings of acute ischemia were communicated to and acknowledged by Dr. Garces via telephone at 06/11/2024 220 by Carine Love RES. The above findings as well as the CTA findings were also discussed with the neuroendovascular team via telephone at 2:40 a.m. on 06/11/2024. This report was dictated by a Private Duty Aide/Fellow/Physician Regional Maintenance Manager. I have personally reviewed the images as well as the interpretation and agree with the findings. Report finalized by: Marco A Ng MD 06/11/2024 8:10 Echo (TTE) complete 06/11/2024 Interpretation Summary Left Ventricle: Left ventricle is smaller than normal. Mildly increased wall thickness in the left ventricle. Findings consistent with concentric remodeling. Mildly reduced systolic function with an estimated EF of 40 - 45%. Global longitudinal strain is reduced. LV GLS is -10.7%. Abnormal diastolic function of the left ventricle. Right Ventricle: Right ventricle size is normal. Moderately reduced systolic function in the right ventricle. Left Atrium: Left atrium is moderately dilated. Right Atrium: Right atrium size is normal. Aortic Valve: Aortic valve is trileaflet. Mildly thickened leaflets in the aortic valve. Leaflet motion is normal. No aortic regurgitation present. No aortic stenosis present. Tricuspid Valve: Tricuspid valve is structurally normal. Mild tricuspid regurgitation present. RVSP is 48.00 mmHg. Mitral Valve: Mildly calcified leaflets in the mitral valve. Mild mitral annular calcification. Mild mitral regurgitation present. Pulmonic Valve: Pulmonic valve is structurally normal. Aorta: Normal sized aortic root and ascending aorta present. IVC/SVC: IVC diameter is less than or equal to 21 mm and decreases less than 50% during inspiration; therefore the estimated right atrial pressure is intermediate (~8 mmHg). Hepatic veins shows systolic flow reversal suggestive of restrictive filling. Pericardium: No pericardial effusion present. 78 year old female with a history of HTN, DM II, HLD and hypothyroidism who was found to have an ischemic infarct of the right MCA territory at an outside hospital who presented as a transfer for possible thrombectomy. LKN at 5 PM on 06/10. OOW for TNK at OSH. Patient was intubated at the OSH for airway protection. Patient under arrival was comatose, not completely explained by the Right MCA stroke. Possible due to being on sedatives at the OSH, or concern for subclinical seizures. Patient is in NICU for close observation. Patient received CT head upon arrival and was found to have a ischemic stroke in right M2 distribution with aspects of 6. CTA showed a right MCA infarct however as per radiology no stump was found. CT perfusion was obtained and found to have the penumbra/infarct ratio almost 1. The mismatch was 3 ml. There was a concern for subclinical seizures in a setting of clinical exam disproportionate to Neuroimaging findings - keppra load was ordered and given. Ativan 2 mg was administered. EEG no seizures. MRI brain wo acute infarct in R MCA with gyral hemorrhagic transformation.TTE EF 40-45, concentric remodeling , left atrium moderately dilated , no thrombus. PEG placed 06/18 with no complications, currently medically ready for discharge. Assessment & Plan Right middle cerebral artery stroke (HCC) Acuity: Acute Etiology: Cardioembolic (new onset A-fib) -S/p Keppra 60mg/kg, c/w 750 BID -ASA 81 mg d;chelo 06/19-> Started Eliquis 5 mg BID -statin -cvEEG no seizures - dc'ed Keppra -MRI brain wo acute infarct in R MCA with gyral hemorrhagic transformation -TTE EF 40-45, concentric remodeling , left atrium moderately dilated , no thrombus -Modafinil 100 mg daily -SBP< 140 -PT/OT/ST Dysarthria-ST Dysphagia- TF - PEG placed 06/18 Hemiplegia (CMS/HCC) ([facility])- PT/OT Acute respiratory failure (HCC)- vent management per ICU -> extubated 06/11 - on RA Atrial fibrillation (CMS/HCC) ([facility])- Eliquis 5 mg BID - rate control - coreg 25mg BID Hypertension- SBP < 140 - Lisinopril 20 mg BID + Coreg 25 mg BID - Will add amlodipine 10mg - titrate oral agents Hyperlipidemia- Statin - LDL goal < 70 Diabetes mellitus (HCC)- SSI Aspiration pneumonia (CMS/HCC) ([facility]) - Fever 101 on 06/13 - Started on zosyn 06/13 -06/18- completed course - Rx cultures 06/13 - NGTD Current Diet: NPO Diet Dispo: SNF Cosigned by Franklin Orosco MD at 06/21/2024 2:40 PM MODEL ARTISTS' L ARTISTS' L ARTISTS' L ARTISTS' Associated attestation - Franklin Orosco MD - 06/21/2024 2:40 PM MODEL ARTISTS' STROKE ATTENDING ADDENDUM I have reviewed the history and pertinent imaging studies and test results. I have personally examined the patient. I discussed with the MAILS SUPERVISOR, PA, or resident and agree with the findings and plan, with any changes or additional recommendations noted below. I have personally viewed the patient's radiographic studies and laboratory tests. Please refer above to the detailed note. Cerebral infarction involving right MCA territory.Likely etiology cardioembolic from new onset A-fib. -Eliquis and statin for secondary stroke prevention today. Best medical therapy including control of underlying vascular risk factors(HTN, HLD, DM), Mediterranean diet and physical activity/exercise for secondary stroke prevention. I spent a total of 36 min in evaluation and assessment of this patient, personally viewed the patient's radiographic studies and laboratory tests and included discussion regarding plan of care and addressing questions and concerns. Franklin Orosco MD [employer] [facility], Stroke Division Dept of Neurology [facility] * Paco Vidal - 06/20/2024 11:10 AM MODEL ARTISTS' Functional Maintenance Mobility: Encounter; Pt was on Lift Team weekend list. Upon arrival, RN declinedassistance Paco Mayl L ARTISTS' * Michelle Alves Jr., MD - 06/20/2024 7:46 AM [facility] Subjective NAEO Objective Last Recorded Vitals Blood pressure 127/60, pulse (!) 107, temperature 37 ?C (98.6 ?F), resp. rate 19, height 1.55 m (5' 1.02"), weight 61 kg (134 lb 7.7 oz), SpO2 97%. Physical Exam: GENERAL: well nourished HEENT: - Normocephalic and atraumatic; MMM, LUNGS - Clear to auscultation bilaterally with no wheezes CV - tachycardia, intact peripheral pulses ABDOMEN - Soft, nontender, nondistended with normoactive BS Neuro: Mental Status: Opens eyes to painful stimuli. Intermittently following commands Speech: dysarthria CN: PERRL 2 mm/ sluggish, R gaze does not cross midline, R FD , face sensation is intact Motor: RUE/RLE AG no drift, LUE WD, LLE WD Sensation: decreased on L Side Coordination: deferred Diagnostic Results CT BRAIN WO IV CONTRAST Result Date: 06/12/2024 EXAM: CT BRAIN WITHOUT CONTRAST DATE: 06/12/2024 15:31 INDICATION: exam change COMPARISON: CT brain without contrast 06/11/2024, MRI brain 06/11/2024 TECHNIQUE: Axial CT images of the brain were obtained. Sagittal and coronal reformats. IV contrast: None DLP: Refer to CT protocol form FINDINGS: Evolving infarct in the right MCA territory infarct that appears increasingly hypodense and areas of evolving cytotoxic edema (series 2 image 13, 20). There is also increased associated effacement of the right lateral ventricle. Leftward midline shift by 5 to 6 mm, mildly increased. Subtle curvilinear hyperdensities in the area of infarction likely correspond to areas of petechial hemorrhage on prior MRI. Chronic lacunar infarcts in the left basal ganglia/camp radiata. Chronic lacunar infarcts in the left thalamus. Periventricular hypodensities likely freight representative of chronic microvascular ischemic disease. Mild diffuse brain parenchymal volume loss with mild ex vacuo ventriculomegaly.. No acute interval osseous changes. Mild opacification in the left maxillary sinus with mucosal thickening. Sclerosis of the left maxillary sinus steiner likely represent the chronic sequela of sinusitis the rest of the paranasal sinuses are predominantly clear. IMPRESSION: 1. Evolving subacute infarct of the right MCA territory associated cytotoxic edema subtle areas of petechial hemorrhagic transformation better appreciated on prior MRI. Increased effacement of the right lateral ventricle with mildly increased midline shift to the left 2. Chronic microangiopathic changes. Chronic infarct in the left basal ganglia/camp radiata. This report was dictated by a Private Duty Aide/Fellow/JASWANT: Vijay Conrad RES, MD 06/12/2024 16:11 This report was dictated by a Private Duty Aide/Fellow/Physician Regional Maintenance Manager. I have personally reviewed the images as well as the interpretation and agree with the findings. Report finalized by: Carol Ann Harper MD 06/12/2024 16:31 CT BRAIN WO IV CONTRAST Result Date: 06/11/2024 EXAM: CT BRAIN WITHOUT CONTRAST DATE: 06/11/2024 1:38 INDICATION: Rm2 occlusion COMPARISON: Same day CTA head. CT head without contrast performed earlier the same day at outside institution TECHNIQUE: Axial CT images of the brain were obtained. Sagittal and coronal reformats. IV contrast: None DLP: Refer to CT protocol form FINDINGS: Loss of mosher-white matter differentiation involving the M1, M2, M4, and M5 regions of the right MCA which has progressed from the outside study.. There is cortical hyperdensity with effacement of adjacent sulci involving the M3 and M6 regions and the posterior insula which has developed over the interval since the outside study Likely chronic infarcts involving the left basal ganglia . Periventricular and supratentorial white matter hypodensities are present. Diffuse cerebral volume loss with compensatory ex vacuo dilation of the ventricular system. No intracranial hemorrhage is identified. The skull base, calvarium, and included facial bones are unremarkable. Mucosal thickening of the left maxillary sinus. Partially visualized endotracheal and enteric tubes.. IMPRESSION: Acute infarction of the right MCA territory with evidence of possible reperfusion, petechial hemorrhagic transformation, and/or contrast enhancement in the territory of the inferior division The Critical findings of acute ischemia were communicated to and acknowledged by Dr. Garces via telephone at 06/11/2024 220 by Carine Love RES. The above findings as well as the CTA findings were also discussed with the neuroendovascular team via telephone at 2:40 a.m. on 06/11/2024. This report was dictated by a Private Duty Aide/Fellow/Physician Regional Maintenance Manager. I have personally reviewed the images as well as the interpretation and agree with the findings. Report finalized by: Marco A Ng MD 06/11/2024 8:10 Echo (TTE) complete 06/11/2024 Interpretation Summary Left Ventricle: Left ventricle is smaller than normal. Mildly increased wall thickness in the left ventricle. Findings consistent with concentric remodeling. Mildly reduced systolic function with an estimated EF of 40 - 45%. Global longitudinal strain is reduced. LV GLS is -10.7%. Abnormal diastolic function of the left ventricle. Right Ventricle: Right ventricle size is normal. Moderately reduced systolic function in the right ventricle. Left Atrium: Left atrium is moderately dilated. Right Atrium: Right atrium size is normal. Aortic Valve: Aortic valve is trileaflet. Mildly thickened leaflets in the aortic valve. Leaflet motion is normal. No aortic regurgitation present. No aortic stenosis present. Tricuspid Valve: Tricuspid valve is structurally normal. Mild tricuspid regurgitation present. RVSP is 48.00 mmHg. Mitral Valve: Mildly calcified leaflets in the mitral valve. Mild mitral annular calcification. Mild mitral regurgitation present. Pulmonic Valve: Pulmonic valve is structurally normal. Aorta: Normal sized aortic root and ascending aorta present. IVC/SVC: IVC diameter is less than or equal to 21 mm and decreases less than 50% during inspiration; therefore the estimated right atrial pressure is intermediate (~8 mmHg). Hepatic veins shows systolic flow reversal suggestive of restrictive filling. Pericardium: No pericardial effusion present. 78 year old female with a history of HTN, DM II, HLD and hypothyroidism who was found to have an ischemic infarct of the right MCA territory at an outside hospital who presented as a transfer for possible thrombectomy. LKN at 5 PM on 06/10. OOW for TNK at OSH. Patient was intubated at the OSH for airway protection. Patient under arrival was comatose, not completely explained by the Right MCA stroke. Possible due to being on sedatives at the OSH, or concern for subclinical seizures. Patient is in NICU for close observation. Patient received CT head upon arrival and was found to have a ischemic stroke in right M2 distribution with aspects of 6. CTA showed a right MCA infarct however as per radiology no stump was found. CT perfusion was obtained and found to have the penumbra/infarct ratio almost 1. The mismatch was 3 ml. There was a concern for subclinical seizures in a setting of clinical exam disproportionate to Neuroimaging findings - keppra load was ordered and given. Ativan 2 mg was administered. EEG no seizures. MRI brain wo acute infarct in R MCA with gyral hemorrhagic transformation.TTE EF 40-45, concentric remodeling , left atrium moderately dilated , no thrombus. PEG placed 06/18. Assessment & Plan Right middle cerebral artery stroke (HCC) Acuity: Acute Etiology: Cardioembolic (new onset A-fib) -S/p Keppra 60mg/kg, c/w 750 BID -ASA 81 mg d;chelo 06/19-> Started Eliquis 5 mg BID -statin -cvEEG no seizures - dc'ed Keppra -MRI brain wo acute infarct in R MCA with gyral hemorrhagic transformation -TTE EF 40-45, concentric remodeling , left atrium moderately dilated , no thrombus -Modafinil 100 mg daily -SBP< 140 -PT/OT/ST Dysarthria-ST Dysphagia- TF - PEG placed 06/18 Hemiplegia (CMS/HCC) (HCC)- PT/OT Acute respiratory failure (HCC)- vent management per ICU -> extubated 06/11 - on RA Atrial fibrillation (CMS/HCC) (HCC)- Eliquis 5 mg BID - rate control - coreg 25mg BID Hypertension- SBP < 140 - Lisinopril 20 mg BID + Coreg 25 mg BID - titrate oral agents Hyperlipidemia- Statin - LDL goal < 70 Diabetes mellitus (HCC)- SSI Aspiration pneumonia (CMS/HCC) (HCC) - Fever 101 on 06/13 - Started on zosyn 06/13 -06/18- completed course - Rx cultures 06/13 - NGTD Acute intracranial hemorrhage (CMS/HCC) (HCC) Current Diet: NPO Diet Dispo: SNF Cosigned by Franklin Orosco MD at 06/20/2024 12:36 PM MODEL ARTISTS' L ARTISTS' L ARTISTS' Associated attestation - Franklin Orosco MD - 06/20/2024 12:36 PM MODEL ARTISTS' STROKE ATTENDING ADDENDUM I have reviewed the history and pertinent imaging studies and test results. I have personally examined the patient. I discussed with the MAILS SUPERVISOR, PA, or resident and agree with the findings and plan, with any changes or additional recommendations noted below. I have personally viewed the patient's radiographic studies and laboratory tests. Please refer above to the detailed note. Cerebral infarction involving right MCA territory.Likely etiology cardioembolic from new onset A-fib. -Eliquis and statin for secondary stroke prevention today. Best medical therapy including control of underlying vascular risk factors(HTN, HLD, DM), Mediterranean diet and physical activity/exercise for secondary stroke prevention. I spent a total of 38 min in evaluation and assessment of this patient, personally viewed the patient's radiographic studies and laboratory tests and included discussion regarding plan of care and addressing questions and concerns. Franklin Orosco MD [employer], Stroke Division Dept of Neurology [facility] * Gerson Guardado LMSW - 06/19/2024 2:23 PM MODEL ARTISTS' 06/19/24 1400 Discharge Planning Discharge Planning Comments Spoke with Sanchez ([phone]) at [facility], and she stated that patient has to be off restraints for 24 hours to be medically ready for transport. Patient is pending PEG and medical clearance. L ARTISTS' * Vik Wayne DO - 06/19/2024 1:34 PM MODEL ARTISTS[facility] PEG Check Patient seen and examined at bedside. PEG in place. PEG Bumper loosened from 3.5cm to 4cm. No evidence of bleeding / induration / discharge around the PEG tube site. Recommendations for use of PEG: - Flush with 20 cc of water before and after use. - Clean area around PEG daily - Change gauze daily for next 2-3 days. - Keep head of bed elevated > 30 degrees while being fed. - PEG will need to remain in place for a minimum of 8 weeks prior to considering removal if later indicated. - Abdominal binder in place at all times if patient is at risk for pulling tubes. - Call a physician if abdominal distention, persistent bleeding, severe pain, and/or signs of infection - PEG tube can continue to be used for medications and feeding Please call GI with any questions or concerns. Vik Wayne DO Gastroenterology & Hepatology l PGY-5 [facility] L ARTISTS' * ALPESH [facility]ney[facility]TA[facility]ARMAC[facility] - 06/19/2024 9:29 AM MODEL ARTISTS' Speech-Language Pathology Encounter Note Patient Name: Isabel Henry Today's Date: 06/19/2024 Missed Treatment Time and Reason Attempted to see pt for dysphagia management. Pt found in bed with decreased level of alertness despite stimulation. Nasal trumpet remains in nare. [facility] will follow for dysphagia management when pt's status allows. Maisha Adams CCC-[facility] L ARTISTS' * Nery Goldstein RN - 06/19/2024 9:21 AM MODEL ARTISTS' CASE MANAGEMENT ROUTINE DISCHARGE PLAN NOTE LOS: 8 Barriers to Discharge: PEG placement 06/19 DISCHARGE PLAN A: [facility] DISCHARGE PLAN B: Home with HH PATRICIA: 06/20 L ARTISTS' * Concepción Mukherjee NP - 06/19/2024 8:08 AM MODEL ARTISTS' Subjective NAEO Objective Last Recorded Vitals Blood pressure 158/72, pulse 99, temperature 36.7 ?C (98 ?F), resp. rate 16, height 1.55 m (5' 1.02"), weight 61 kg (134 lb 7.7 oz), SpO2 95%. Physical Exam: GENERAL: well nourished HEENT: - Normocephalic and atraumatic; MMM, LUNGS - Clear to auscultation bilaterally with no wheezes CV - tachycardia, intact peripheral pulses ABDOMEN - Soft, nontender, nondistended with normoactive BS Neuro: Mental Status: Opens eyes to painful stimuli. Intermittently following commands Speech: dysarthria CN: PERRL 2 mm/ sluggish, R gaze does not cross midline, R FD , face sensation is intact Motor: RUE/RLE AG no drift, LUE WD, LLE WD Sensation: decreased on L Side Coordination: deferred Diagnostic Results CT BRAIN WO IV CONTRAST Result Date: 06/12/2024 EXAM: CT BRAIN WITHOUT CONTRAST DATE: 06/12/2024 15:31 INDICATION: exam change COMPARISON: CT brain without contrast 06/11/2024, MRI brain 06/11/2024 TECHNIQUE: Axial CT images of the brain were obtained. Sagittal and coronal reformats. IV contrast: None DLP: Refer to CT protocol form FINDINGS: Evolving infarct in the right MCA territory infarct that appears increasingly hypodense and areas of evolving cytotoxic edema (series 2 image 13, 20). There is also increased associated effacement of the right lateral ventricle. Leftward midline shift by 5 to 6 mm, mildly increased. Subtle curvilinear hyperdensities in the area of infarction likely correspond to areas of petechial hemorrhage on prior MRI. Chronic lacunar infarcts in the left basal ganglia/camp radiata. Chronic lacunar infarcts in the left thalamus. Periventricular hypodensities likely freight representative of chronic microvascular ischemic disease. Mild diffuse brain parenchymal volume loss with mild ex vacuo ventriculomegaly.. No acute interval osseous changes. Mild opacification in the left maxillary sinus with mucosal thickening. Sclerosis of the left maxillary sinus steiner likely represent the chronic sequela of sinusitis the rest of the paranasal sinuses are predominantly clear. IMPRESSION: 1. Evolving subacute infarct of the right MCA territory associated cytotoxic edema subtle areas of petechial hemorrhagic transformation better appreciated on prior MRI. Increased effacement of the right lateral ventricle with mildly increased midline shift to the left 2. Chronic microangiopathic changes. Chronic infarct in the left basal ganglia/camp radiata. This report was dictated by a Private Duty Aide/Fellow/JASWANT: Vijay Conrad RES, MD 06/12/2024 16:11 This report was dictated by a Private Duty Aide/Fellow/Physician Regional Maintenance Manager. I have personally reviewed the images as well as the interpretation and agree with the findings. Report finalized by: Carol Ann Harper MD 06/12/2024 16:31 CT BRAIN WO IV CONTRAST Result Date: 06/11/2024 EXAM: CT BRAIN WITHOUT CONTRAST DATE: 06/11/2024 1:38 INDICATION: Rm2 occlusion COMPARISON: Same day CTA head. CT head without contrast performed earlier the same day at outside institution TECHNIQUE: Axial CT images of the brain were obtained. Sagittal and coronal reformats. IV contrast: None DLP: Refer to CT protocol form FINDINGS: Loss of mosher-white matter differentiation involving the M1, M2, M4, and M5 regions of the right MCA which has progressed from the outside study.. There is cortical hyperdensity with effacement of adjacent sulci involving the M3 and M6 regions and the posterior insula which has developed over the interval since the outside study Likely chronic infarcts involving the left basal ganglia . Periventricular and supratentorial white matter hypodensities are present. Diffuse cerebral volume loss with compensatory ex vacuo dilation of the ventricular system. No intracranial hemorrhage is identified. The skull base, calvarium, and included facial bones are unremarkable. Mucosal thickening of the left maxillary sinus. Partially visualized endotracheal and enteric tubes.. IMPRESSION: Acute infarction of the right MCA territory with evidence of possible reperfusion, petechial hemorrhagic transformation, and/or contrast enhancement in the territory of the inferior division The Critical findings of acute ischemia were communicated to and acknowledged by Dr. Garces via telephone at 06/11/2024 220 by Carine Love RES. The above findings as well as the CTA findings were also discussed with the neuroendovascular team via telephone at 2:40 a.m. on 06/11/2024. This report was dictated by a Private Duty Aide/Fellow/Physician Regional Maintenance Manager. I have personally reviewed the images as well as the interpretation and agree with the findings. Report finalized by: Marco A Ng MD 06/11/2024 8:10 Echo (TTE) complete 06/11/2024 Interpretation Summary Left Ventricle: Left ventricle is smaller than normal. Mildly increased wall thickness in the left ventricle. Findings consistent with concentric remodeling. Mildly reduced systolic function with an estimated EF of 40 - 45%. Global longitudinal strain is reduced. LV GLS is -10.7%. Abnormal diastolic function of the left ventricle. Right Ventricle: Right ventricle size is normal. Moderately reduced systolic function in the right ventricle. Left Atrium: Left atrium is moderately dilated. Right Atrium: Right atrium size is normal. Aortic Valve: Aortic valve is trileaflet. Mildly thickened leaflets in the aortic valve. Leaflet motion is normal. No aortic regurgitation present. No aortic stenosis present. Tricuspid Valve: Tricuspid valve is structurally normal. Mild tricuspid regurgitation present. RVSP is 48.00 mmHg. Mitral Valve: Mildly calcified leaflets in the mitral valve. Mild mitral annular calcification. Mild mitral regurgitation present. Pulmonic Valve: Pulmonic valve is structurally normal. Aorta: Normal sized aortic root and ascending aorta present. IVC/SVC: IVC diameter is less than or equal to 21 mm and decreases less than 50% during inspiration; therefore the estimated right atrial pressure is intermediate (~8 mmHg). Hepatic veins shows systolic flow reversal suggestive of restrictive filling. Pericardium: No pericardial effusion present. ECG 12 lead Result Date: 06/14/2024 Impression: ATRIAL FIBRILLATION WITH A RAPID VENTRICULAR RESPONSE ABNORMAL ECG WHEN COMPARED WITH ECG OF 12-JUN-2024 07:54, NO SIGNIFICANT CHANGE Confirmed by Don Mead ([id number]) on 06/14/2024 6:36:47 PM ECG 12 leadResult Date: 06/12/2024 Impression: ATRIAL FIBRILLATION ABNORMAL QRS-T ANGLE, CONSIDER PRIMARY T WAVE ABNORMALITY PROLONGED QT INTERVAL OR TU FUSION, CONSIDER MYOCARDIAL DISEASE, ELECTROLYTE IMBALANCE, OR DRUG EFFECTS NO PREVIOUS ECGS AVAILABLE Confirmed by Juanpablo Mueller ([id number]) on 06/12/2024 7:56:30 PM 78 year old female with a history of HTN, DM II, HLD and hypothyroidism who was found to have an ischemic infarct of the right MCA territory at an outside hospital who presented as a transfer for possible thrombectomy. LKN at 5 PM on 06/10. OOW for TNK at OSH. Patient was intubated at the OSH for airway protection. Patient under arrival was comatose, not completely explained by the Right MCA stroke. Possible due to being on sedatives at the OSH, or concern for subclinical seizures. Patient is in NICU for close observation. Patient received CT head upon arrival and was found to have a ischemic stroke in right M2 distribution with aspects of 6. CTA showed a right MCA infarct however as per radiology no stump was found. CT perfusion was obtained and found to have the penumbra/infarct ratio almost 1. The mismatch was 3 ml. There was a concern for subclinical seizures in a setting of clinical exam disproportionate to Neuroimaging findings - keppra load was ordered and given. Ativan 2 mg was administered. EEG no seizures. MRI brain wo acute infarct in R MCA with gyral hemorrhagic transformation.TTE EF 40-45, concentric remodeling , left atrium moderately dilated , no thrombus. PEG placed 06/18. Assessment & Plan Right middle cerebral artery stroke (HCC) Acuity: Acute Etiology: Cardioembolic (new onset A-fib) -S/p Keppra 60mg/kg, c/w 750 BID -ASA 81 mg d;chelo 06/19-> Started Eliquis 5 mg BID -statin -cvEEG no seizures - dc'ed Keppra -MRI brain wo acute infarct in R MCA with gyral hemorrhagic transformation -TTE EF 40-45, concentric remodeling , left atrium moderately dilated , no thrombus -Modafinil 100 mg daily -SBP< 140 -PT/OT/ST Dysarthria-ST Dysphagia- TF - PEG placed 06/18 Hemiplegia (CMS/HCC) (HCC)- PT/OT Acute respiratory failure (HCC)- vent management per ICU -> extubated 06/11 - on RA Atrial fibrillation (CMS/HCC) (HCC)- Eliquis 5 mg BID - rate control - coreg 25mg BID Hypertension- SBP < 140 - Lisinopril 20 mg BID + Coreg 25 mg BID - titrate oral agents Hyperlipidemia- Statin - LDL goal < 70 Diabetes mellitus (HCC)- SSI Aspiration pneumonia (CMS/HCC) (HCC) - Fever 101 on 06/13 - Started on zosyn 06/13 -06/18- completed course - Rx cultures 06/13 - NGTD Current Diet: NPO Diet Dispo: [facility] Concepción Mukherjee, AGALEIGHAP-BC, AGNP-C, CNLStroke Team B MAILS SUPERVISOR [phone] 7-5PM, Please call [phone] after 5PM Case discussed with Dr. Orosco who agrees with the plan of care. Cosigned by Franklin Orosco MD at 06/19/2024 5:22 PM MODEL ARTISTS' L ARTISTS' L ARTISTS' L ARTISTS' L ARTISTS' Associated attestation - Franklin Orosco MD - 06/19/2024 5:22 PM [facility] STROKE ATTENDING ADDENDUM I have reviewed the history and pertinent imaging studies and test results. I have personally examined the patient. I discussed with the MAILS SUPERVISOR, PA, or resident and agree with the findings and plan, with any changes or additional recommendations noted below. I have personally viewed the patient's radiographic studies and laboratory tests. Please refer above to the detailed note.S/p PEG placement. Cerebral infarction involving right MCA territory.Likely etiology cardioembolic from new onset A-fib. -Start Eliquis for secondary stroke prevention today. Stop ASA. Statins for secondary stroke prevention. Best medical therapy including control of underlying vascular risk factors (HTN, HLD, DM), Mediterranean diet and physical activity/exercise for secondary stroke prevention. -trial of modafinil to help improve mental status. I spent a total of 36 min in evaluation and assessment of this patient, personally viewed the patient's radiographic studies and laboratory tests and included discussion regarding plan of care and addressing questions and concerns. Franklin Orosco MD [facility], Stroke Division Dept of Neurology [facility] [place] Materialise * Sarah Montoya MD - 06/18/2024 5:30 PM [facility] Brief EGD report This is a preliminary report, please follow final report for further recommendations. Findings 3 cm hiatal hernia - GE junction 35 cm from the incisors, diaphragmatic impression 38 cm from the incisors Erythematous mucosa with erosion in the stomach; no bleeding was observed s/p random gastric biopsies to r/o H pylori (Jar 1) Abnormal mucosa in the duodenal bulb; no bleeding was observed A PEG tube was successfully placed in the stomach via the push technique after the site was identified via transillumination, visualized indentation and needle passed through abdominal wall; scope reinserted and tube rotated freely to confirm placement. Bumper was at 3.5cm. Recommendations: 1) Await path results 2) Can start using PEG tube for feeding tomorrow am. 3) Flush with 20 cc of water before and after use. 4) Clean area with soap and water daily. 5) Change gauze for next 2-3 days. 6) Keep head of bed elevated > 30 degrees while being fed. 7) PEG will need to remain in place for a minimum of 8-12 weeks prior to considering removal if later indicated. 8) Abdominal binder in place at all times. 9) Call a physician if abdominal distention, persistent bleeding, severe pain, and/or signs of infection 10) Will check PEG tube tomorrow Sarah Montoya MD GI fellow L ARTISTS' * Gerson Guardado LMSW - 06/18/2024 4:18 PM [facility] 06/18/24 1600 Discharge Planning Discharge Planning Comments Patient clinically accepted at [facility], pending medical clearance. L ARTISTS' * Lauren Renteria OT - 06/18/2024 4:12 PM [facility] Treatment Session Note Patient Name: Isabel Henry Today's Date: 06/18/2024 Preferred Language: Kyrgyz Assessment & Plan Assessment: Pt is more awake this session with family present. Pt then is sitting EOB with Min-Mod A with a left side lean. Demos left side inattention. Pt completed 2 sit to stands with Mod A. Pt is limited by left side weakness, ADL completion, activity tolerance, balance, global strength, L side inattention, and safety awareness. Pt will continue to benefit from acute OT services to address deficits. Precautions: UE Weight Bearing Status: FWB LE Weight Bearing Status: FWB Plan: Treatment Plan/Goals Established with Patient/Caregiver: Yes OT Plan: Skilled OT OT Frequency: 3-5 times per week until discharge OT Discharge Recommendations: Inpatient rehab facility placement OT Planned Treatments: Activities of Daily Living, Balance training, Coordination, Energy conservation training, Patient education, Safety education, Therapeutic activities, Therapeutic exercises OT Duration: Discharge Subjective Pt stated, "you are such a beauty" Pain: Pain Assessment: DVPRS (06/18/2024 1:30 PM) Objective Self Care (ADL): Self Care/Home Management (ADLs) Time Entry: 15 Toileting Assistance: Dependent ADL Comments: toileting and pericare Total A Treatment Self-Care: Self Care/Home Management (ADLs) Time Entry: 15 Toileting Assistance: Dependent ADL Comments: toileting and pericare Total A Bed Mobility: Bed Mobility 1 Level of Assistance 1: Partial/Mod assistance Bed Mobility Comments 1: Mod A, help with scooting anteriorly and LLE Bed Mobility To/From: Supine to sit on EOB Assistive Devices And Adaptive Equipments: No device Bed Mobility 2 Level of Assistance 2: Substantial/Max assistance Bed Mobility To/From: Sitting EOB to supine Assistive Devices And Adaptive Equipments: No device Transfers: Transfer 1 Level of Assistance 1: Partial/Mod assistance Trials/Comments 1: Mod A x2, and completed 2 sit to stands Transfer To/From: [id number] Assistive Devices And Adaptive Equipments: No device Therapeutic Activity Therapeutic Activity Time Entry: 30 Therapeutic Activity 1: Sitting EOB for 12 minutes with Min A, regressed to Mod A as pt fatigues Therapeutic Activity 2: Demos LLE knee extension and resistive movement in the LUE Therapeutic Activity 3: maintains midline with Min A, leans more to the left Therapeutic Activity 4: 2 sit to stands with Mod Ax2, maintains each stand for 10 seconds AM-PAC Daily Activity: Putting on and taking off regular lower body clothing: A Lot Bathing (including washing, rinsing, drying): A Lot Toileting, which includes using toilet, bedpan or urinal: A Lot Putting on and taking off regular upper body clothing: A Lot Taking care of personal grooming such as brushing teeth: A Lot Eating Meals: A Lot AM-PAC Daily Activity Raw Score: 12 Patient Education:Education Documentation No documentation found. Education Comments No comments found. Goals:Encounter Goals Encounter Goals (Active) Pt will tolerate sitting EOB for > 10 minutes with Min A and use of one UE for support in preparation for OOB activity Start: 06/12/24 Expected End: 06/25/24 Pt will complete bed to toilet transfer to [facility] with Min A using AE as needed in preparation for household ambulation Start: 06/12/24 Expected End: 06/26/24 Pt will complete upper and lower body dressing task with Mod A using AE as needed. Start: 06/12/24 Expected End: 06/26/24 Patient will don UE orthotic with Mod A assist in order to promote functional positioning of UE. Start: 06/12/24 Expected End: 06/26/24 Treatment Note: If this is the last documented treatment, then it will signify discharge from acute care prior to discharge from the therapy service and will serve as the discharge summary. Lauren Renteria OT L ARTISTS' * Nancy Stanford, PT - 06/18/2024 12:23 PM [facility] Physical Therapy Treatment Session Note Patient Name: Isabel Henry Today's Date: 06/18/2024 Preferred Language: Kyrgyz Assessment & Plan Assessment: PT Assessment: Pt mildly more awake today, able to speak but was unable to answer orientation questions besides name. Also pt w/ questionable vision, obvious L neglect but unsure that pt can see at all. She requires max->total A for mobility. Will continue to follow, rec inpatient post acute therapy Prognosis: Fair Medical Staff Made Aware: Yes Plan: PT Discharge Recommendations: shelter facility placement PT Recommended Transfer Status: Total assist Subjective Pt lying in bed, appears in NAD Pain: 0/10 Objective General Visit Information: PT Last Visit PT Received On: 06/18/24 Cognition Overall Cognitive Status: Impaired Orientation Level: Disoriented to place, Disoriented to time, Disoriented to situation TreatmentTherapeutic activity: Therapeutic Activity Therapeutic Activity Time Entry: 25 Therapeutic Activity 1: Lines organized, VSS. pt more awake today but still difficult to understans, intermittently following commands. She was noted to have had liquid BM, so pt was rolled for cleaning, applied EPC. Pt did indicated significant pain w/ cleaning buttocks. Pt was then laterally scooted over to NC for upright tolerance and to try and increase RENY. She was positioned for comfort w/ lap belt on for safety, wrist restraints secured. Pt w/ difficulty answering questions, was perseverating on telling this PT "I love you w/ all of my heart." Pt was left in chair w/ all needs met, lift team called for back to bed in 2 hours Bed Mobility: Bed Mobility 1:Level of Assistance 1: Substantial/Max assistance Bed Mobility To/From: Supine to sit on EOB Transfers: Transfers 1: Technique 1: Dependent lift Level of Assistance 1: Dependent Transfer To/From: Bed, Chair Outcome Measures: AM-PAC Basic Mobility:AM-PAC Basic Mobility Inpatient Turning in bed without bedrails: A Lot Lying on back to sitting on edge of flat bed: A Lot Bed to chair: Total Standing up from chair: Total Walk in room: Total Climbing 3-5 stairs: Total Mobility Inpatient Raw Score: 8 -HLM Goal: 3 Mobility: Highest Level of Mobility Performed (-HLM)-HL Goal: 3 Modified Craig Patient Education: Education Documentation No documentation found. Education Comments No comments found. Goals:Encounter Goals Encounter Goals (Active) Patient will be min A w/ bed mobility Start: 06/12/24 Expected End: 06/26/24 Patient will be mod A w/ transfers Start: 06/12/24 Expected End: 06/26/24 Patient will be mod A w/ ambulation 10' w/ LRAD Start: 06/12/24 Expected End: 06/26/24 Treatment Note: If this is the last documented treatment, then it will signify discharge from acute care prior to discharge from the therapy service and will serve as the discharge summary. Nancy Stanford PT L ARTISTS' * Paoc Vidal - 06/18/2024 10:40 AM [facility] Functional Maintenance Mobility: RN requested Lift Team assistance. Pt was found in neurochair. [facility]. Pt was left safely under care of RN. Paco Mayl L ARTISTS' * Ti Sanchez RN - 06/18/2024 9:28 AM [facility] CASE MANAGEMENT ROUTINE DISCHARGE PLANNING NOTE LOS: 7 days BARRIERS: PEG DISCHARGE PLAN A: SNF (p choice) DISCHARGE PLAN B: PATRICIA: 06/19/2024 Additional Comments: Pt will not need ABN as faclities are w/in 100 mi radius of hospital ([place] roughly 50 miles away). CM/SW will continue to follow patient for further DC planning needs. Ti Sanchez RN Case Manager [phone] L ARTISTS' * Isabel Norman NP - 06/18/2024 9:00 AM [facility] Subjective NPO for PEG today Objective Last Recorded Vitals Blood pressure (!) 118/57, pulse 99, temperature 36.5 ?C (97.7 ?F), resp. rate 15, height 1.55 m (5' 1.02"), weight 61 kg (134 lb 7.7 oz), SpO2 97%. Physical Exam: GENERAL: well nourished HEENT: - Normocephalic and atraumatic; MMM, LUNGS - Clear to auscultation bilaterally with no wheezes CV - tachycardia, intact peripheral pulses ABDOMEN - Soft, nontender, nondistended with normoactive BS Neuro: Mental Status: Opens eyes to painful stimuli. Intermittently following commands Speech: dysarthria CN: PERRL 2 mm/ sluggish, R gaze does not cross midline, R FD , face sensation is intact Motor: RUE/RLE AG no drift, LUE WD, LLE WD Sensation: decreased on L Side Coordination: deferred Diagnostic Results CT BRAIN WO IV CONTRAST Result Date: 06/12/2024 EXAM: CT BRAIN WITHOUT CONTRAST DATE: 06/12/2024 15:31 INDICATION: exam change COMPARISON: CT brain without contrast 06/11/2024, MRI brain 06/11/2024 TECHNIQUE: Axial CT images of the brain were obtained. Sagittal and coronal reformats. IV contrast: None DLP: Refer to CT protocol form FINDINGS: Evolving infarct in the right MCA territory infarct that appears increasingly hypodense and areas of evolving cytotoxic edema (series 2 image 13, 20). There is also increased associated effacement of the right lateral ventricle. Leftward midline shift by 5 to 6 mm, mildly increased. Subtle curvilinear hyperdensities in the area of infarction likely correspond to areas of petechial hemorrhage on prior MRI. Chronic lacunar infarcts in the left basal ganglia/camp radiata. Chronic lacunar infarcts in the left thalamus. Periventricular hypodensities likely freight representative of chronic microvascular ischemic disease. Mild diffuse brain parenchymal volume loss with mild ex vacuo ventriculomegaly.. No acute interval osseous changes. Mild opacification in the left maxillary sinus with mucosal thickening. Sclerosis of the left maxillary sinus steiner likely represent the chronic sequela of sinusitis the rest of the paranasal sinuses are predominantly clear. IMPRESSION: 1. Evolving subacute infarct of the right MCA territory associated cytotoxic edema subtle areas of petechial hemorrhagic transformation better appreciated on prior MRI. Increased effacement of the right lateral ventricle with mildly increased midline shift to the left 2. Chronic microangiopathic changes. Chronic infarct in the left basal ganglia/camp radiata. This report was dictated by a Private Duty Aide/Fellow/JASWANT: Vijay Conrad RES, MD 06/12/2024 16:11 This report was dictated by a Private Duty Aide/Fellow/Physician Regional Maintenance Manager. I have personally reviewed the images as well as the interpretation and agree with the findings. Report finalized by: Carol Ann Harper MD 06/12/2024 16:31 CT BRAIN WO IV CONTRAST Result Date: 06/11/2024 EXAM: CT BRAIN WITHOUT CONTRAST DATE: 06/11/2024 1:38 INDICATION: Rm2 occlusion COMPARISON: Same day CTA head. CT head without contrast performed earlier the same day at outside institution TECHNIQUE: Axial CT images of the brain were obtained. Sagittal and coronal reformats. IV contrast: None DLP: Refer to CT protocol form FINDINGS: Loss of mosher-white matter differentiation involving the M1, M2, M4, and M5 regions of the right MCA which has progressed from the outside study.. There is cortical hyperdensity with effacement of adjacent sulci involving the M3 and M6 regions and the posterior insula which has developed over the interval since the outside study Likely chronic infarcts involving the left basal ganglia . Periventricular and supratentorial white matter hypodensities are present. Diffuse cerebral volume loss with compensatory ex vacuo dilation of the ventricular system. No intracranial hemorrhage is identified. The skull base, calvarium, and included facial bones are unremarkable. Mucosal thickening of the left maxillary sinus. Partially visualized endotracheal and enteric tubes.. IMPRESSION: Acute infarction of the right MCA territory with evidence of possible reperfusion, petechial hemorrhagic transformation, and/or contrast enhancement in the territory of the inferior division The Critical findings of acute ischemia were communicated to and acknowledged by Dr. Garces via telephone at 06/11/2024 220 by Carine Love RES. The above findings as well as the CTA findings were also discussed with the neuroendovascular team via telephone at 2:40 a.m. on 06/11/2024. This report was dictated by a Private Duty Aide/Fellow/Physician Regional Maintenance Manager. I have personally reviewed the images as well as the interpretation and agree with the findings. Report finalized by: Marco A Ng MD 06/11/2024 8:10 Echo (TTE) complete 06/11/2024 Interpretation Summary Left Ventricle: Left ventricle is smaller than normal. Mildly increased wall thickness in the left ventricle. Findings consistent with concentric remodeling. Mildly reduced systolic function with an estimated EF of 40 - 45%. Global longitudinal strain is reduced. LV GLS is -10.7%. Abnormal diastolic function of the left ventricle. Right Ventricle: Right ventricle size is normal. Moderately reduced systolic function in the right ventricle. Left Atrium: Left atrium is moderately dilated. Right Atrium: Right atrium size is normal. Aortic Valve: Aortic valve is trileaflet. Mildly thickened leaflets in the aortic valve. Leaflet motion is normal. No aortic regurgitation present. No aortic stenosis present. Tricuspid Valve: Tricuspid valve is structurally normal. Mild tricuspid regurgitation present. RVSP is 48.00 mmHg. Mitral Valve: Mildly calcified leaflets in the mitral valve. Mild mitral annular calcification. Mild mitral regurgitation present. Pulmonic Valve: Pulmonic valve is structurally normal. Aorta: Normal sized aortic root and ascending aorta present. IVC/SVC: IVC diameter is less than or equal to 21 mm and decreases less than 50% during inspiration; therefore the estimated right atrial pressure is intermediate (~8 mmHg). Hepatic veins shows systolic flow reversal suggestive of restrictive filling. Pericardium: No pericardial effusion present. ECG 12 lead Result Date: 06/14/2024 Impression: ATRIAL FIBRILLATION WITH A RAPID VENTRICULAR RESPONSE ABNORMAL ECG WHEN COMPARED WITH ECG OF 12-JUN-2024 07:54, NO SIGNIFICANT CHANGE Confirmed by Don Mead ([id number]) on 06/14/2024 6:36:47 PM ECG 12 leadResult Date: 06/12/2024 Impression: ATRIAL FIBRILLATION ABNORMAL QRS-T ANGLE, CONSIDER PRIMARY T WAVE ABNORMALITY PROLONGED QT INTERVAL OR TU FUSION, CONSIDER MYOCARDIAL DISEASE, ELECTROLYTE IMBALANCE, OR DRUG EFFECTS NO PREVIOUS ECGS AVAILABLE Confirmed by Juanpablo Mueller ([id number]) on 06/12/2024 7:56:30 PM 78 year old female with a history of HTN, DM II, HLD and hypothyroidism who was found to have an ischemic infarct of the right MCA territory at an outside hospital who presented as a transfer for possible thrombectomy. LKN at 5 PM on 06/10. OOW for TNK at OSH. Patient was intubated at the OSH for airway protection. Patient under arrival was comatose, not completely explained by the Right MCA stroke. Possible due to being on sedatives at the OSH, or concern for subclinical seizures. Patient is in NICU for close observation. Patient received CT head upon arrival and was found to have a ischemic stroke in right M2 distribution with aspects of 6. CTA showed a right MCA infarct however as per radiology no stump was found. CT perfusion was obtained and found to have the penumbra/infarct ratio almost 1. The mismatch was 3 ml. There was a concern for subclinical seizures in a setting of clinical exam disproportionate to Neuroimaging findings - keppra load was ordered and given. Ativan 2 mg was administered. EEG no seizures. MRI brain wo acute infarct in R MCA with gyral hemorrhagic transformation.TTE EF 40-45, concentric remodeling , left atrium moderately dilated , no thrombus. Assessment & Plan Right middle cerebral artery stroke (HCC) Acuity: Acute Suspected Etiology: Cardioembolic (new onset A-fib) -S/p Keppra 60mg/kg, c/w 750 BID -ASA 81 mg -statin -cvEEG no seizures - dc'ed Keppra -MRI brain wo acute infarct in R MCA with gyral hemorrhagic transformation -TTE EF 40-45, concentric remodeling , left atrium moderately dilated , no thrombus - Will eventually need AC for A-fib - plan on 06/19 after PEG -SBP< 140 -PT/OT/ST Dysarthria-ST Dysphagia- TF - Pending PEG Hemiplegia (CMS/HCC) (HCC)- PT/OT Acute respiratory failure (HCC)- vent management per ICU -> extubated 06/11 - on RA Atrial fibrillation (CMS/HCC) (HCC)- holding AC at this time due to stroke burden - resume day 7 - rate control - coreg 25mg BID Hypertension- SBP < 140 - titrate oral agents Hyperlipidemia- Statin - LDL goal < 70 Diabetes mellitus (HCC) Aspiration pneumonia (CMS/HCC) (HCC)- Fever 101 on 06/13 - Started on zosyn 06/13 -06/18 - Rx cultures 06/13 - NGTD Acute intracranial hemorrhage (CMS/HCC) (HCC) Current Diet: NPO Diet Dispo: [facility] Flavia Norman, DARCY-BC, AGNP-C, CNLStroke Team B MAILS SUPERVISOR [phone] 7-5PM, Please call [phone] after 5PM Case discussed with Dr. Orosco who agrees with the plan of care. Cosigned by Franklin Orosco MD at 06/18/2024 4:40 PM MODEL ARTISTS' L ARTISTS' L ARTISTS' Associated attestation - Kwesi, Franklin Naranjo MD - 06/18/2024 4:40 PM [facility]' STROKE ATTENDING ADDENDUM I have reviewed the history and pertinent imaging studies and test results. I have personally examined the patient. I discussed with the MAILS SUPERVISOR, PA, or resident and agree with the findings and plan, with any changes or additional recommendations noted below. I have personally viewed the patient's radiographic studies and laboratory tests. Please refer above to the detailed noteAwaiting PEG placement. Cerebral infarction involving right MCA territory.Likely etiology cardioembolic from new onset A-fib. - Continue aspirin 81 mg and statins for secondary stroke prevention. Plan to start anticoagulation after PEG tube. Best medical therapy including control of underlying vascular risk factors (HTN, HLD, DM), Mediterranean diet and physical activity/exercise for secondary stroke prevention. -trial of modafinil to help improve mental status. I spent a total of 37 min in evaluation and assessment of this patient, personally viewed the patient's radiographic studies and laboratory tests and included discussion regarding plan of care and addressing questions and concerns. Franklin Oorsco MD [employer], Stroke Division Dept of Neurology [facility] [employer] * Franklin Orosco MD - 06/17/2024 10:09 PM MODEL ARTISTS' [facility] Query Clarification Progress Note As related to the inpatient hospital stay starting on 06/11/2024, 1:10 AM. What are the clinical indicators to support the documented diagnosis of Sepsis PROVIDER RESPONSE TEXT: The diagnosis, Sepsis without septic shock Query Created By : La Hines, 06/12/2024, 8:54 AM L ARTISTS' * Franklin Orosco MD - 06/17/2024 10:08 PM [facility]DEL ARTISTS' [facility] Query Clarification Progress Note As related to the inpatient hospital stay starting on 06/11/2024, 1:10 AM. Encephalopathy is documented in the Medical Record. Please specify type PROVIDER RESPONSE TEXT: Encephalopathy due to CVA Query Created By : La Hines, 06/12/2024, 9:04 AM L ARTISTS' * Michelle Alves Jr., MD - 06/17/2024 3:39 PM [facility] Subjective NAEO Objective Last Recorded Vitals Blood pressure (!) 161/67, pulse 100, temperature 36.7 ?C (98 ?F), resp. rate (!) 23, height 1.55 m (5' 1.02"), weight 61 kg (134 lb 7.7 oz), SpO2 98%. Physical Exam: GENERAL: well nourished HEENT: - Normocephalic and atraumatic; MMM, LUNGS - Clear to auscultation bilaterally with no wheezes CV - tachycardia, intact peripheral pulses ABDOMEN - Soft, nontender, nondistended with normoactive BS Neuro: Mental Status: Opens eyes to painful stimuli. Intermittently following commands Speech: dysarthria CN: PERRL 2 mm/ sluggish, R gaze does not cross midline, R FD , face sensation is intact Motor: RUE/RLE AG no drift, LUE WD, LLE WD Sensation: decreased on L Side Coordination: deferred Diagnostic Results CT BRAIN WO IV CONTRAST Result Date: 06/12/2024 EXAM: CT BRAIN WITHOUT CONTRAST DATE: 06/12/2024 15:31 INDICATION: exam change COMPARISON: CT brain without contrast 06/11/2024, MRI brain 06/11/2024 TECHNIQUE: Axial CT images of the brain were obtained. Sagittal and coronal reformats. IV contrast: None DLP: Refer to CT protocol form FINDINGS: Evolving infarct in the right MCA territory infarct that appears increasingly hypodense and areas of evolving cytotoxic edema (series 2 image 13, 20). There is also increased associated effacement of the right lateral ventricle. Leftward midline shift by 5 to 6 mm, mildly increased. Subtle curvilinear hyperdensities in the area of infarction likely correspond to areas of petechial hemorrhage on prior MRI. Chronic lacunar infarcts in the left basal ganglia/camp radiata. Chronic lacunar infarcts in the left thalamus. Periventricular hypodensities likely freight representative of chronic microvascular ischemic disease. Mild diffuse brain parenchymal volume loss with mild ex vacuo ventriculomegaly.. No acute interval osseous changes. Mild opacification in the left maxillary sinus with mucosal thickening. Sclerosis of the left maxillary sinus steiner likely represent the chronic sequela of sinusitis the rest of the paranasal sinuses are predominantly clear. IMPRESSION: 1. Evolving subacute infarct of the right MCA territory associated cytotoxic edema subtle areas of petechial hemorrhagic transformation better appreciated on prior MRI. Increased effacement of the right lateral ventricle with mildly increased midline shift to the left 2. Chronic microangiopathic changes. Chronic infarct in the left basal ganglia/camp radiata. This report was dictated by a Private Duty Aide/Fellow/JASWANT: Vijay Conrad RES, MD 06/12/2024 16:11 This report was dictated by a Private Duty Aide/Fellow/Physician Regional Maintenance Manager. I have personally reviewed the images as well as the interpretation and agree with the findings. Report finalized by: Carol Ann Harper MD 06/12/2024 16:31 CT BRAIN WO IV CONTRAST Result Date: 06/11/2024 EXAM: CT BRAIN WITHOUT CONTRAST DATE: 06/11/2024 1:38 INDICATION: Rm2 occlusion COMPARISON: Same day CTA head. CT head without contrast performed earlier the same day at outside institution TECHNIQUE: Axial CT images of the brain were obtained. Sagittal and coronal reformats. IV contrast: None DLP: Refer to CT protocol form FINDINGS: Loss of mosher-white matter differentiation involving the M1, M2, M4, and M5 regions of the right MCA which has progressed from the outside study.. There is cortical hyperdensity with effacement of adjacent sulci involving the M3 and M6 regions and the posterior insula which has developed over the interval since the outside study Likely chronic infarcts involving the left basal ganglia . Periventricular and supratentorial white matter hypodensities are present. Diffuse cerebral volume loss with compensatory ex vacuo dilation of the ventricular system. No intracranial hemorrhage is identified. The skull base, calvarium, and included facial bones are unremarkable. Mucosal thickening of the left maxillary sinus. Partially visualized endotracheal and enteric tubes.. IMPRESSION: Acute infarction of the right MCA territory with evidence of possible reperfusion, petechial hemorrhagic transformation, and/or contrast enhancement in the territory of the inferior division The Critical findings of acute ischemia were communicated to and acknowledged by Dr. Garces via telephone at 06/11/2024 220 by Carine Love RES. The above findings as well as the CTA findings were also discussed with the neuroendovascular team via telephone at 2:40 a.m. on 06/11/2024. This report was dictated by a Private Duty Aide/Fellow/Physician Regional Maintenance Manager. I have personally reviewed the images as well as the interpretation and agree with the findings. Report finalized by: Marco A Ng MD 06/11/2024 8:10 Echo (TTE) complete 06/11/2024 Interpretation Summary Left Ventricle: Left ventricle is smaller than normal. Mildly increased wall thickness in the left ventricle. Findings consistent with concentric remodeling. Mildly reduced systolic function with an estimated EF of 40 - 45%. Global longitudinal strain is reduced. LV GLS is -10.7%. Abnormal diastolic function of the left ventricle. Right Ventricle: Right ventricle size is normal. Moderately reduced systolic function in the right ventricle. Left Atrium: Left atrium is moderately dilated. Right Atrium: Right atrium size is normal. Aortic Valve: Aortic valve is trileaflet. Mildly thickened leaflets in the aortic valve. Leaflet motion is normal. No aortic regurgitation present. No aortic stenosis present. Tricuspid Valve: Tricuspid valve is structurally normal. Mild tricuspid regurgitation present. RVSP is 48.00 mmHg. Mitral Valve: Mildly calcified leaflets in the mitral valve. Mild mitral annular calcification. Mild mitral regurgitation present. Pulmonic Valve: Pulmonic valve is structurally normal. Aorta: Normal sized aortic root and ascending aorta present. IVC/SVC: IVC diameter is less than or equal to 21 mm and decreases less than 50% during inspiration; therefore the estimated right atrial pressure is intermediate (~8 mmHg). Hepatic veins shows systolic flow reversal suggestive of restrictive filling. Pericardium: No pericardial effusion present. 78 year old female with a history of HTN, DM II, HLD and hypothyroidism who was found to have an ischemic infarct of the right MCA territory at an outside hospital who presented as a transfer for possible thrombectomy. LKN at 5 PM on 06/10. OOW for TNK at OSH. Patient was intubated at the OSH for airway protection. Patient under arrival was comatose, not completely explained by the Right MCA stroke. Possible due to being on sedatives at the OSH, or concern for subclinical seizures. Patient is in NICU for close observation. Patient received CT head upon arrival and was found to have a ischemic stroke in right M2 distribution with aspects of 6. CTA showed a right MCA infarct however as per radiology no stump was found. CT perfusion was obtained and found to have the penumbra/infarct ratio almost 1. The mismatch was 3 ml. There was a concern for subclinical seizures in a setting of clinical exam disproportionate to Neuroimaging findings - keppra load was ordered and given. Ativan 2 mg was administered. EEG no seizures. MRI brain wo acute infarct in R MCA with gyral hemorrhagic transformation.TTE EF 40-45, concentric remodeling , left atrium moderately dilated , no thrombus. Assessment & Plan Right middle cerebral artery stroke (HCC) Acuity: Acute Suspected Etiology: Cardioembolic (new onset A-fib) -S/p Keppra 60mg/kg, c/w 750 BID -ASA 81 mg -statin -cvEEG no seizures - dc'ed -MRI brain wo acute infarct in R MCA with gyral hemorrhagic transformation -TTE EF 40-45, concentric remodeling , left atrium moderately dilated , no thrombus - Will eventually need AC for A-fib -SBP< 140 -PT/OT/ST Dysarthria-ST Dysphagia- TF - Pending PEG Hemiplegia (CMS/HCC) (HCC)- PT/OT Acute respiratory failure (HCC)- vent management per ICU -> extubated 06/11 - on RA Atrial fibrillation (CMS/HCC) (HCC)- holding AC at this time due to stroke burden - resume day 7 - rate control - coreg 25mg BID Hypertension- SBP < 140 - titrate oral agents Hyperlipidemia- Statin - LDL goal < 70 Diabetes mellitus (HCC) Aspiration pneumonia (CMS/HCC) (HCC)- Fever 101 on 06/13 - Started on zosyn 06/13 - Rx cultures 06/13 Acute intracranial hemorrhage (CMS/HCC) (HCC) Current Diet: NPO DietNPO Diet Cosigned by Franklin Orosco MD at 06/17/2024 4:35 PM MODEL ARTISTS' L ARTISTS' L ARTISTS' Associated attestation - Franklin Orosco MD - 06/17/2024 4:35 PM [facility] ARTISTS' STROKE ATTENDING ADDENDUM I have reviewed the history and pertinent imaging studies and test results. I have personally examined the patient. I discussed with the MAILS SUPERVISOR, PA, or resident and agree with the findings and plan, with any changes or additional recommendations noted below. I have personally viewed the patient's radiographic studies and laboratory tests. Please refer above to the detailed note Neurological exam stable. Patient pulled out her NG tube. Awaiting PEGplacement. Cerebral infarction involving right MCA territory.Likely etiology cardioembolic from new onset A-fib. - Continue aspirin 81 mg and statins for secondary stroke prevention. Plan to start anticoagulation at day 8 given large stroke preferably after PEG tube. Continue Keppra 750 mg q12hrs Best medical therapy including control of underlying vascular risk factors (HTN, HLD, DM), Mediterranean diet and physical activity/exercise for secondary stroke prevention. -trial of modafinil to help improve mental status. -Zosyn for aspiration pneumonia. I spent a total of 53 min in evaluation and assessment of this patient, personally viewed the patient's radiographic studies and laboratory tests and included discussion regarding plan of care and addressing questions and concerns. Franklin Orosco MD [employer], Stroke Division Dept of Neurology [facility] [employer] * YAEL Denney - 06/17/2024 1:15 PM [facility]ISTS' Speech-Language Pathology Encounter Note Patient Name: Isabel Henry Today's Date: 06/17/2024 Missed Treatment Time and Reason Team secure messaged [facility] to request for a re-evaluation. [facility] arrived to room to find pt in bed with eyes open and only responding to pain. RN confirmed that pt only responds to pain at this time. Nasal trumpet found in nare. Per RN, pt pulled NGT. Pt deemed not appropriate/safe for po trials due to current medical/cognitive status. Secure messaged team. [facility] will continue to follow for dysphagia management. YAEL Denney L ARTISTS' * Nancy Stanford, PT - 06/17/2024 10:01 AM [facility]' Physical Therapy Treatment Session Note Patient Name: Isabel Henry Today's Date: 06/17/2024 Preferred Language: Kyrgyz Assessment & Plan Assessment: PT Assessment: Pt remains aphasic w/ L weakness, requires total A w/ all mobility. Will continue to follow, rec inpatient post acute therapy Prognosis: Fair Medical Staff Made Aware: Yes Plan: PT Frequency: 3-4 times per week until discharge PT Discharge Recommendations: shelter facility placement PT Recommended Transfer Status: Total assist Subjective Pt lying in bed, appears in NAD Pain: 0/10 ObjectiveGeneral Visit Information: PT Last Visit PT Received On: 06/17/24 Cognition Overall Cognitive Status: Impaired Orientation Level: Unable to assess TreatmentTherapeutic activity: Therapeutic Activity Therapeutic Activity Time Entry: Therapeutic Activity 1: Lines organized, VSS. Pt unable to verbalize, unable to follow commands, eyes closed. She was assisted to sit EOB w/ total A, no active movement noted to L UE. once in sitting, pt w/ eyes open but did not track or attend. In sitting, pt was able to maintain balance at EOB w/ min A, also was noted to spontaneously move L LE, nothing to command. She sat EOB x 10 minutes, for sitting balance training and to try and increase RENY. She still was unable to verbalize of follow commands. She was assisted to stand w/ total A, then was assisted back to supine. She was noted to have soiled diaper, was rolled for cleaning. She was positiond for comfort in bed w/ B wrist restraints secured. Bed Mobility: Bed Mobility 1:Level of Assistance 1: Dependent Bed Mobility To/From: Supine to sit on EOB, Sitting EOB to supine Transfers: Transfers 1: Level of Assistance 1: Dependent Transfer To/From: Bed, [id number] Outcome Measures: AM-PAC Basic Mobility:AM-PAC Basic Mobility Inpatient Turning in bed without bedrails: Total Lying on back to sitting on edge of flat bed: Total Bed to chair: Total Standing up from chair: Total Walk in room: Total Climbing 3-5 stairs: Total Mobility Inpatient Raw Score: 6 -[facility] Goal: 2 Mobility: Highest Level of Mobility Performed (-[facility])-HLM Goal: 2 Modified Craig Patient Education: Education Documentation No documentation found. Education Comments No comments found. Goals:Encounter Goals Encounter Goals (Active) Patient will be min A w/ bed mobility Start: 06/12/24 Expected End: 06/26/24 Patient will be mod A w/ transfers Start: 06/12/24 Expected End: 06/26/24 Patient will be mod A w/ ambulation 10' w/ LRAD Start: 06/12/24 Expected End: 06/26/24 Treatment Note: If this is the last documented treatment, then it will signify discharge from acute care prior to discharge from the therapy service and will serve as the discharge summary. Nancy Stanford PT L ARTISTS' * Liz Barrera LCSW - 06/17/2024 9:20 AM [facility]' 06/17/24 0900 Discharge Planning Patient expects to be discharged to: SNF Choice Expected Discharge Disposition SNF Discharge Planning Comments Spoke with Will the patients grand daughter, they gave two places that they would like first choice is [facility] and second choice was [facility]. I sent packets to both in [facility]. I did explain to the grand daughter that Medicare may not cover the ambulance due to how far it is from [place] she understood and asked about if they could be billed. I was not able to answer that question. Discharge Planning Status Referrals Pending L ARTISTS' * Michelle Alves Jr., MD - 06/16/2024 6:47 AM [facility]' Subjective NAEO Objective Last Recorded Vitals Blood pressure (!) 174/76, pulse (!) 105, temperature 36.5 ?C (97.7 ?F), resp. rate 19, height 1.55 m (5' 1.02"), weight 61 kg (134 lb 7.7 oz), SpO2 98%. Physical Exam: GENERAL: well nourished HEENT: - Normocephalic and atraumatic; MMM, LUNGS - Clear to auscultation bilaterally with no wheezes CV - tachycardia, intact peripheral pulses ABDOMEN - Soft, nontender, nondistended with normoactive BS Neuro: Mental Status: Opens eyes to painful stimuli. Intermittently following commands Speech: dysarthria CN: PERRL 2 mm/ sluggish, R gaze does not cross midline, R FD , face sensation is intact Motor: RUE/RLE AG no drift, LUE WD, LLE WD Sensation: decreased on L Side Coordination: deferred Diagnostic Results CT BRAIN WO IV CONTRAST Result Date: 06/12/2024 EXAM: CT BRAIN WITHOUT CONTRAST DATE: 06/12/2024 15:31 INDICATION: exam change COMPARISON: CT brain without contrast 06/11/2024, MRI brain 06/11/2024 TECHNIQUE: Axial CT images of the brain were obtained. Sagittal and coronal reformats. IV contrast: None DLP: Refer to CT protocol form FINDINGS: Evolving infarct in the right MCA territory infarct that appears increasingly hypodense and areas of evolving cytotoxic edema (series 2 image 13, 20). There is also increased associated effacement of the right lateral ventricle. Leftward midline shift by 5 to 6 mm, mildly increased. Subtle curvilinear hyperdensities in the area of infarction likely correspond to areas of petechial hemorrhage on prior MRI. Chronic lacunar infarcts in the left basal ganglia/camp radiata. Chronic lacunar infarcts in the left thalamus. Periventricular hypodensities likely freight representative of chronic microvascular ischemic disease. Mild diffuse brain parenchymal volume loss with mild ex vacuo ventriculomegaly.. No acute interval osseous changes. Mild opacification in the left maxillary sinus with mucosal thickening. Sclerosis of the left maxillary sinus steiner likely represent the chronic sequela of sinusitis the rest of the paranasal sinuses are predominantly clear. IMPRESSION: 1. Evolving subacute infarct of the right MCA territory associated cytotoxic edema subtle areas of petechial hemorrhagic transformation better appreciated on prior MRI. Increased effacement of the right lateral ventricle with mildly increased midline shift to the left 2. Chronic microangiopathic changes. Chronic infarct in the left basal ganglia/camp radiata. This report was dictated by a Private Duty Aide/Fellow/JASWANT: Vijay Conrad RES, MD 06/12/2024 16:11 This report was dictated by a Private Duty Aide/Fellow/Physician Regional Maintenance Manager. I have personally reviewed the images as well as the interpretation and agree with the findings. Report finalized by: Carol Ann Harper MD 06/12/2024 16:31 CT BRAIN WO IV CONTRAST Result Date: 06/11/2024 EXAM: CT BRAIN WITHOUT CONTRAST DATE: 06/11/2024 1:38 INDICATION: Rm2 occlusion COMPARISON: Same day CTA head. CT head without contrast performed earlier the same day at outside institution TECHNIQUE: Axial CT images of the brain were obtained. Sagittal and coronal reformats. IV contrast: None DLP: Refer to CT protocol form FINDINGS: Loss of mosehr-white matter differentiation involving the M1, M2, M4, and M5 regions of the right MCA which has progressed from the outside study.. There is cortical hyperdensity with effacement of adjacent sulci involving the M3 and M6 regions and the posterior insula which has developed over the interval since the outside study Likely chronic infarcts involving the left basal ganglia . Periventricular and supratentorial white matter hypodensities are present. Diffuse cerebral volume loss with compensatory ex vacuo dilation of the ventricular system. No intracranial hemorrhage is identified. The skull base, calvarium, and included facial bones are unremarkable. Mucosal thickening of the left maxillary sinus. Partially visualized endotracheal and enteric tubes.. IMPRESSION: Acute infarction of the right MCA territory with evidence of possible reperfusion, petechial hemorrhagic transformation, and/or contrast enhancement in the territory of the inferior division The Critical findings of acute ischemia were communicated to and acknowledged by Dr. Garces via telephone at 06/11/2024 220 by Carine Love RES. The above findings as well as the CTA findings were also discussed with the neuroendovascular team via telephone at 2:40 a.m. on 06/11/2024. This report was dictated by a Private Duty Aide/Fellow/Physician Regional Maintenance Manager. I have personally reviewed the images as well as the interpretation and agree with the findings. Report finalized by: Marco A Ng MD 06/11/2024 8:10 Echo (TTE) complete 06/11/2024 Interpretation Summary Left Ventricle: Left ventricle is smaller than normal. Mildly increased wall thickness in the left ventricle. Findings consistent with concentric remodeling. Mildly reduced systolic function with an estimated EF of 40 - 45%. Global longitudinal strain is reduced. LV GLS is -10.7%. Abnormal diastolic function of the left ventricle. Right Ventricle: Right ventricle size is normal. Moderately reduced systolic function in the right ventricle. Left Atrium: Left atrium is moderately dilated. Right Atrium: Right atrium size is normal. Aortic Valve: Aortic valve is trileaflet. Mildly thickened leaflets in the aortic valve. Leaflet motion is normal. No aortic regurgitation present. No aortic stenosis present. Tricuspid Valve: Tricuspid valve is structurally normal. Mild tricuspid regurgitation present. RVSP is 48.00 mmHg. Mitral Valve: Mildly calcified leaflets in the mitral valve. Mild mitral annular calcification. Mild mitral regurgitation present. Pulmonic Valve: Pulmonic valve is structurally normal. Aorta: Normal sized aortic root and ascending aorta present. IVC/SVC: IVC diameter is less than or equal to 21 mm and decreases less than 50% during inspiration; therefore the estimated right atrial pressure is intermediate (~8 mmHg). Hepatic veins shows systolic flow reversal suggestive of restrictive filling. Pericardium: No pericardial effusion present. 78 year old female with a history of HTN, DM II, HLD and hypothyroidism who was found to have an ischemic infarct of the right MCA territory at an outside hospital who presented as a transfer for possible thrombectomy. LKN at 5 PM on 06/10. OOW for TNK at OSH. Patient was intubated at the OSH for airway protection. Patient under arrival was comatose, not completely explained by the Right MCA stroke. Possible due to being on sedatives at the OSH, or concern for subclinical seizures. Patient is in NICU for close observation. Patient received CT head upon arrival and was found to have a ischemic stroke in right M2 distribution with aspects of 6. CTA showed a right MCA infarct however as per radiology no stump was found. CT perfusion was obtained and found to have the penumbra/infarct ratio almost 1. The mismatch was 3 ml. There was a concern for subclinical seizures in a setting of clinical exam disproportionate to Neuroimaging findings - keppra load was ordered and given. Ativan 2 mg was administered. EEG no seizures. MRI brain wo acute infarct in R MCA with gyral hemorrhagic transformation.TTE EF 40-45, concentric remodeling , left atrium moderately dilated , no thrombus. Assessment & Plan Right middle cerebral artery stroke (HCC) Acuity: Acute Suspected Etiology: Cardioembolic (new onset A-fib) -S/p Keppra 60mg/kg, c/w 750 BID -ASA 81 mg -statin -cvEEG no seizures - dc'ed -MRI brain wo acute infarct in R MCA with gyral hemorrhagic transformation -TTE EF 40-45, concentric remodeling , left atrium moderately dilated , no thrombus - Will eventually need AC for A-fib -SBP< 180 -PT/OT/ST Dysarthria-ST Dysphagia- TF - NGT - Will need to discuss PEG with family - ST Hemiplegia (CMS/HCC) (HCC)- PT/OT Acute respiratory failure (HCC)- vent management per ICU -> extubated 06/11 - on RA Atrial fibrillation (CMS/HCC) (HCC)- holding AC at this time due to stroke burden - resume day 7 - rate control - coreg 25mg BID Hypertension- SBP < 140 - titrate oral agents Hyperlipidemia- Statin - LDL goal < 70 Diabetes mellitus (HCC) Aspiration pneumonia (CMS/HCC) (HCC)- Fever 101 on 06/13 - Started on zosyn 06/13 - Rx cultures 06/13 Acute intracranial hemorrhage (CMS/HCC) (HCC) Current Diet: NPO Diet Cosigned by Franklin Orosco MD at 06/16/2024 1:52 PM [facility]' L ARTISTS' L ARTISTS' Associated attestation - Franklin Orosco MD - 06/16/2024 1:52 PM [facility] STROKE ATTENDING ADDENDUM I have reviewed the history and pertinent imaging studies and test results. I have personally examined the patient. I discussed with the MAILS SUPERVISOR, PA, or resident and agree with the findings and plan, with any changes or additional recommendations noted below. I have personally viewed the patient's radiographic studies and laboratory tests. Please refer above to the detailed noteMental status exam remains poor and unchanged. Cerebral infarction involving right MCA territory.Likely etiology cardioembolic from new onset A-fib. - Continue aspirin 81 mg and statins for secondary stroke prevention. Plan to start anticoagulation at day 8 given large stroke preferably after PEG tube. Continue Keppra 750 mg q12hrs Continuous telemetry to detect arrhythmias. -Continue trial of modafinil to help improve status. Best medical therapy including control of underlying vascular risk factors (HTN, HLD, DM), Mediterranean diet and physical activity/exercise for secondary stroke prevention. I spent a total of 51 min in evaluation and assessment of this patient, personally viewed the patient's radiographic studies and laboratory tests and included discussion regarding plan of care and addressing questions and concerns. Franklin Orosco MD [facility], Stroke Division Dept of Neurology [facility] * Lauren Renteria, OT - 06/15/2024 11:36 AM [facility] Treatment Session Note Patient Name: Isabel Henry Today's Date: 06/16/2024 Preferred Language: Kyrgyz Assessment & Plan Assessment: Pt is more awake this session, though still has difficulty with opening her eyes. Pt tolerates PROM to the LUE and completed oral care and face washing with max A and SOUTHERN UTE. Pt is limited by level of alertness, activity tolerance, balance, ADL completion, and safety awareness. Pt will continue to benefit from acute OT services to address deficits. Precautions: UE Weight Bearing Status: FWB LE Weight Bearing Status: FWB Plan: Treatment Plan/Goals Established with Patient/Caregiver: Yes OT Plan: Skilled OT OT Frequency: 3-5 times per week until discharge OT Discharge Recommendations: Inpatient rehab facility placement OT Planned Treatments: Activities of Daily Living, Balance training, Coordination, Energy conservation training, Patient education, Safety education, Therapeutic activities, Therapeutic exercises OT Duration: Discharge Subjective Pt lying in bed and agreeable to therapy session. Pain: Pain Assessment: Castaneda-Romano FACES (06/16/2024 2:00 PM) Objective RN okay'd OT session. Pt lying in bed and agreeable to therapy session. Pt tolerates PROM to the LUE and tolerated each with 1x15 reps. Pt also tolerated SOUTHERN UTE and face washing with Max A and oral care with max A. Pt was left in bed with all needs met, call light within reach, and RN notified. Treatment 06/15/24 1136 Therapeutic Procedures Time Entry Therapeutic Exercise Time Entry 14 Therapeutic Exercise Therapeutic Exercise Activity 1 PROM to the LUE Therapeutic Activities Time Entry: 10 Activity: Self care- oral care, face washing Total A AM-PAC Daily Activity: 06/15/24 1136 AM-PAC Daily Activity Inpatient Putting on and taking off regular lower body clothing 2 Bathing (including washing, rinsing, drying) 2 Toileting, which includes using toilet, bedpan or urinal 2 Putting on and taking off regular upper body clothing 2 Taking care of personal grooming such as brushing teeth 2 Eating Meals 2 AM-PAC Daily Activity Raw Score 12 Patient Education:Education Documentation No documentation found. Education Comments No comments found. Goals:Encounter Goals Encounter Goals (Active) Pt will tolerate sitting EOB for > 10 minutes with Min A and use of one UE for support in preparation for OOB activity Start: 06/12/24 Expected End: 06/25/24 Pt will complete bed to toilet transfer to [facility] with Min A using AE as needed in preparation for household ambulation Start: 06/12/24 Expected End: 06/26/24 Pt will complete upper and lower body dressing task with Mod A using AE as needed. Start: 06/12/24 Expected End: 06/26/24 Patient will don UE orthotic with Mod A assist in order to promote functional positioning of UE. Start: 06/12/24 Expected End: 06/26/24 Treatment Note: If this is the last documented treatment, then it will signify discharge from acute care prior to discharge from the therapy service and will serve as the discharge summary. Lauren Renteria OT [facility] * Nancy Stanford, PT - 06/15/2024 10:58 AM [facility] Physical Therapy Treatment Session Note Patient Name: Isabel Henry Today's Date: 06/15/2024 Preferred Language: Kyrgyz Assessment & Plan Assessment: PT Assessment: Pt w/ cognitive decline since last session, pt unable to follow commands, unable to answer orientation question, pt agitated and hitting therapist w/ R side. Minimal spontaneous movement to L LE. PT to continue to follow, rec inpatient post acute therapy Medical Staff Made Aware: Yes Plan: PT Frequency: 3-5 times per week until discharge PT Discharge Recommendations: shelter facility placement Subjective Pt lying in bed in NAD, sleeping. No family at bedside Pain: 0/10 ObjectiveGeneral Visit Information: PT Last Visit PT Received On: 06/15/24 CognitionOverall Cognitive Status: Impaired Behavior/Cognition: Uncooperative Orientation Level: Unable to assess TreatmentTherapeutic activity: Therapeutic Activity Therapeutic Activity Time Entry: Therapeutic Activity 1: Lines organized, VSS. pt unable to open eyes, unable to answer orientation questions. B wrist restrainrs removed, pt was punching PT w/ R hand, kicking PT w/ R leg. SHe was assisted to sit EOB w/ max A to try and increase RENY, cooperation, pt remained agtitated, punching/kicking PT w/ R side. She was unable to answer questions, perseverating on one word (Will? Deepika?). She sat EOB x 1o minutes w/ no improvement in participation. She was assisted back to supine, did finally verbalize inteligibly "leave me alone." She was positioned for comfort in bed w/ B wrist restraints secured. Bed Mobility: Bed Mobility 1:Level of Assistance 1: Substantial/Max assistance Bed Mobility To/From: Supine to sit on EOB, Sitting EOB to supine Outcome Measures: AM-PAC Basic Mobility:AM-PAC Basic Mobility Inpatient Turning in bed without bedrails: A Lot Lying on back to sitting on edge of flat bed: A Lot Bed to chair: Total Standing up from chair: Total Walk in room: Total Climbing 3-5 stairs: Total Mobility Inpatient Raw Score: 8 JH-HLM Goal: 3 Mobility: Highest Level of Mobility Performed (JH-HLM)-HLM Goal: 3 Modified Diamond Patient Education: Education Documentation No documentation found. Education Comments No comments found. Goals:Encounter Goals Encounter Goals (Active) Patient will be min A w/ bed mobility Start: 06/12/24 Expected End: 06/26/24 Patient will be mod A w/ transfers Start: 06/12/24 Expected End: 06/26/24 Patient will be mod A w/ ambulation 10' w/ LRAD Start: 06/12/24 Expected End: 06/26/24 Treatment Note: If this is the last documented treatment, then it will signify discharge from acute care prior to discharge from the therapy service and will serve as the discharge summary. Nancy Stanford PT [facility] * Michelle Alves Jr., MD - 06/15/2024 8:02 AM [facility] Subjective NAEO Objective Last Recorded Vitals Blood pressure (!) 181/77, pulse (!) 107, temperature 36.3 ?C (97.4 ?F), resp. rate 16, height 1.55 m (5' 1.02"), weight 61 kg (134 lb 7.7 oz), SpO2 98%. Physical Exam: GENERAL: well nourished HEENT: - Normocephalic and atraumatic; MMM, LUNGS - Clear to auscultation bilaterally with no wheezes CV - tachycardia, intact peripheral pulses ABDOMEN - Soft, nontender, nondistended with normoactive BS Neuro: Mental Status:opens eyes to painful stimuli. Intermittently following commands Speech: dysarthria CN: PERRL 2 mm/ sluggish, R gaze does not cross midline, R FD , face sensation is intact Motor: RUE/RLE AG no drift, LUE WD, LLE WD Sensation: decreased on L Side Coordination: deferred Diagnostic Results CT BRAIN WO IV CONTRAST Result Date: 06/12/2024 EXAM: CT BRAIN WITHOUT CONTRAST DATE: 06/12/2024 15:31 INDICATION: exam change COMPARISON: CT brain without contrast 06/11/2024, MRI brain 06/11/2024 TECHNIQUE: Axial CT images of the brain were obtained. Sagittal and coronal reformats. IV contrast: None DLP: Refer to CT protocol form FINDINGS: Evolving infarct in the right MCA territory infarct that appears increasingly hypodense and areas of evolving cytotoxic edema (series 2 image 13, 20). There is also increased associated effacement of the right lateral ventricle. Leftward midline shift by 5 to 6 mm, mildly increased. Subtle curvilinear hyperdensities in the area of infarction likely correspond to areas of petechial hemorrhage on prior MRI. Chronic lacunar infarcts in the left basal ganglia/camp radiata. Chronic lacunar infarcts in the left thalamus. Periventricular hypodensities likely freight representative of chronic microvascular ischemic disease. Mild diffuse brain parenchymal volume loss with mild ex vacuo ventriculomegaly.. No acute interval osseous changes. Mild opacification in the left maxillary sinus with mucosal thickening. Sclerosis of the left maxillary sinus steiner likely represent the chronic sequela of sinusitis the rest of the paranasal sinuses are predominantly clear. IMPRESSION: 1. Evolving subacute infarct of the right MCA territory associated cytotoxic edema subtle areas of petechial hemorrhagic transformation better appreciated on prior MRI. Increased effacement of the right lateral ventricle with mildly increased midline shift to the left 2. Chronic microangiopathic changes. Chronic infarct in the left basal ganglia/cmap radiata. This report was dictated by a Private Duty Aide/Fellow/JASWANT: Vijay Conrad RES, MD 06/12/2024 16:11 This report was dictated by a Private Duty Aide/Fellow/Physician Regional Maintenance Manager. I have personally reviewed the images as well as the interpretation and agree with the findings. Report finalized by: Carol Ann Harper MD 06/12/2024 16:31 CT BRAIN WO IV CONTRAST Result Date: 06/11/2024 EXAM: CT BRAIN WITHOUT CONTRAST DATE: 06/11/2024 1:38 INDICATION: Rm2 occlusion COMPARISON: Same day CTA head. CT head without contrast performed earlier the same day at outside institution TECHNIQUE: Axial CT images of the brain were obtained. Sagittal and coronal reformats. IV contrast: None DLP: Refer to CT protocol form FINDINGS: Loss of mosher-white matter differentiation involving the M1, M2, M4, and M5 regions of the right MCA which has progressed from the outside study.. There is cortical hyperdensity with effacement of adjacent sulci involving the M3 and M6 regions and the posterior insula which has developed over the interval since the outside study Likely chronic infarcts involving the left basal ganglia . Periventricular and supratentorial white matter hypodensities are present. Diffuse cerebral volume loss with compensatory ex vacuo dilation of the ventricular system. No intracranial hemorrhage is identified. The skull base, calvarium, and included facial bones are unremarkable. Mucosal thickening of the left maxillary sinus. Partially visualized endotracheal and enteric tubes.. IMPRESSION: Acute infarction of the right MCA territory with evidence of possible reperfusion, petechial hemorrhagic transformation, and/or contrast enhancement in the territory of the inferior division The Critical findings of acute ischemia were communicated to and acknowledged by Dr. Garces via telephone at 06/11/2024 220 by Carine Love RES. The above findings as well as the CTA findings were also discussed with the neuroendovascular team via telephone at 2:40 a.m. on 06/11/2024. This report was dictated by a Private Duty Aide/Fellow/Physician Regional Maintenance Manager. I have personally reviewed the images as well as the interpretation and agree with the findings. Report finalized by: Marco A Ng MD 06/11/2024 8:10 Echo (TTE) complete 06/11/2024 Interpretation Summary Left Ventricle: Left ventricle is smaller than normal. Mildly increased wall thickness in the left ventricle. Findings consistent with concentric remodeling. Mildly reduced systolic function with an estimated EF of 40 - 45%. Global longitudinal strain is reduced. LV GLS is -10.7%. Abnormal diastolic function of the left ventricle. Right Ventricle: Right ventricle size is normal. Moderately reduced systolic function in the right ventricle. Left Atrium: Left atrium is moderately dilated. Right Atrium: Right atrium size is normal. Aortic Valve: Aortic valve is trileaflet. Mildly thickened leaflets in the aortic valve. Leaflet motion is normal. No aortic regurgitation present. No aortic stenosis present. Tricuspid Valve: Tricuspid valve is structurally normal. Mild tricuspid regurgitation present. RVSP is 48.00 mmHg. Mitral Valve: Mildly calcified leaflets in the mitral valve. Mild mitral annular calcification. Mild mitral regurgitation present. Pulmonic Valve: Pulmonic valve is structurally normal. Aorta: Normal sized aortic root and ascending aorta present. IVC/SVC: IVC diameter is less than or equal to 21 mm and decreases less than 50% during inspiration; therefore the estimated right atrial pressure is intermediate (~8 mmHg). Hepatic veins shows systolic flow reversal suggestive of restrictive filling. Pericardium: No pericardial effusion present. 78 year old female with a history of HTN, DM II, HLD and hypothyroidism who was found to have an ischemic infarct of the right MCA territory at an outside hospital who presented as a transfer for possible thrombectomy. LKN at 5 PM on 06/10. OOW for TNK at OSH. Patient was intubated at the OSH for airway protection. Patient under arrival was comatose, not completely explained by the Right MCA stroke. Possible due to being on sedatives at the OSH, or concern for subclinical seizures. Patient is in NICU for close observation. Patient received CT head upon arrival and was found to have a ischemic stroke in right M2 distribution with aspects of 6. CTA showed a right MCA infarct however as per radiology no stump was found. CT perfusion was obtained and found to have the penumbra/infarct ratio almost 1. The mismatch was 3 ml. There was a concern for subclinical seizures in a setting of clinical exam disproportionate to Neuroimaging findings - keppra load was ordered and given. Ativan 2 mg was administered. EEG no seizures. MRI brain wo acute infarct in R MCA with gyral hemorrhagic transformation.TTE EF 40-45, concentric remodeling , left atrium moderately dilated , no thrombus. 06/12 patient with AMS rCTH/CTA stable. Assessment & Plan Right middle cerebral artery stroke (HCC) Acuity: Acute Suspected Etiology: ICAD vs Cardioembolic (possible Afib on tele) -S/p Keppra 60mg/kg, c/w 750 BID -ASA 81 mg -statin -cvEEG no seizures - dc'ed -MRI brain wo acute infarct in R MCA with gyral hemorrhagic transformation -TTE EF 40-45, concentric remodeling , left atrium moderately dilated , no thrombus - Will eventually need AC for A-fib -SBP< 180 -PT/OT/ST Dysarthria-ST Dysphagia- TF - NGT - ST Hemiplegia (CMS/HCC) (HCC)- PT/OT Acute respiratory failure (HCC)- vent management per ICU -> extubated 06/11 - on RA Atrial fibrillation (CMS/HCC) (HCC)- holding AC at this time due to stroke burden - rate control - coreg 25mg BID Hypertension- SBP < 180 - titrate oral agents - Add Nifedipine 30mg Hyperlipidemia- Statin - LDL goal < 70 Diabetes mellitus (HCC) Aspiration pneumonia (CMS/HCC) (HCC)- Fever 101 on 06/13 - Started on zosyn 06/13 - Rx cultures 06/13 Acute intracranial hemorrhage (CMS/HCC) (HCC) Current Diet: NPO Diet Cosigned by Vivienne Pisano MD at 06/15/2024 11:27 AM [facility] L ARTISTS' L ARTISTS' Associated attestation - Vivienne Pisano MD - 06/15/2024 11:27 AM [facility] STROKE NEUROLOGY ATTENDING ATTESTATION I have personally seen and evaluated the patient on June 15, 2024, and I was present for see critical points of the encounter. I have discussed the case with and reviewed the provider note detailed above. I have personally viewed the patient's radiographic studies, laboratory tests, and medications. I agree with the above documented history, exam, assessment and plan. Please see note below for any additions and/or exceptions to the note above. Stable examination, slightly better mental status this AM. On modafinil 100mg daily, BP slightly elevated yesterday. Will CTM and titrate BP meds. Encounter took minutes of total cumulative time examining the patient at the bedside and in discussion regarding plan of care and addressing questions and concerns, reviewing the EMR and paper chart, reviewing diagnostic studies, laboratory values, and recommendations. I provided a substantive portion of the care of this patient. I personally performed the MDM for this encounter. Vivienne Pisano MD, MPHAssistant Professor, Vascular Neurology [facility] [email or web address] Office contact: [phone] Stroke Clinic: [phone] * Michelle Alves Jr., MD - 06/14/2024 7:27 AM [facility] Subjective NAEO Objective Last Recorded Vitals Blood pressure (!) 170/72, pulse (!) 125, temperature 37.3 ?C (99.2 ?F), resp. rate 20, height 1.55 m (5' 1.02"), weight 61 kg (134 lb 7.7 oz), SpO2 96%. Physical Exam: GENERAL: well nourished HEENT: - Normocephalic and atraumatic; MMM, LUNGS - Clear to auscultation bilaterally with no wheezes CV - tachycardia, intact peripheral pulses ABDOMEN - Soft, nontender, nondistended with normoactive BS Neuro: Mental Status:opens eyes to painful stimuli. Intermittently following commands Speech: dysarthria CN: PERRL 2 mm/ sluggish, R gaze does not cross midline, R FD , face sensation is intact Motor: RUE/RLE AG no drift, LUE WD, LLE WD Sensation: decreased on L Side Coordination: deferred Diagnostic Results CT BRAIN WO IV CONTRAST Result Date: 06/12/2024 EXAM: CT BRAIN WITHOUT CONTRAST DATE: 06/12/2024 15:31 INDICATION: exam change COMPARISON: CT brain without contrast 06/11/2024, MRI brain 06/11/2024 TECHNIQUE: Axial CT images of the brain were obtained. Sagittal and coronal reformats. IV contrast: None DLP: Refer to CT protocol form FINDINGS: Evolving infarct in the right MCA territory infarct that appears increasingly hypodense and areas of evolving cytotoxic edema (series 2 image 13, 20). There is also increased associated effacement of the right lateral ventricle. Leftward midline shift by 5 to 6 mm, mildly increased. Subtle curvilinear hyperdensities in the area of infarction likely correspond to areas of petechial hemorrhage on prior MRI. Chronic lacunar infarcts in the left basal ganglia/camp radiata. Chronic lacunar infarcts in the left thalamus. Periventricular hypodensities likely freight representative of chronic microvascular ischemic disease. Mild diffuse brain parenchymal volume loss with mild ex vacuo ventriculomegaly.. No acute interval osseous changes. Mild opacification in the left maxillary sinus with mucosal thickening. Sclerosis of the left maxillary sinus steiner likely represent the chronic sequela of sinusitis the rest of the paranasal sinuses are predominantly clear. IMPRESSION: 1. Evolving subacute infarct of the right MCA territory associated cytotoxic edema subtle areas of petechial hemorrhagic transformation better appreciated on prior MRI. Increased effacement of the right lateral ventricle with mildly increased midline shift to the left 2. Chronic microangiopathic changes. Chronic infarct in the left basal ganglia/camp radiata. This report was dictated by a Private Duty Aide/Fellow/JASWANT: Vijay Conrad RES, MD 06/12/2024 16:11 This report was dictated by a Private Duty Aide/Fellow/Physician Regional Maintenance Manager. I have personally reviewed the images as well as the interpretation and agree with the findings. Report finalized by: Carol Ann Harper MD 06/12/2024 16:31 CT BRAIN WO IV CONTRAST Result Date: 06/11/2024 EXAM: CT BRAIN WITHOUT CONTRAST DATE: 06/11/2024 1:38 INDICATION: Rm2 occlusion COMPARISON: Same day CTA head. CT head without contrast performed earlier the same day at outside institution TECHNIQUE: Axial CT images of the brain were obtained. Sagittal and coronal reformats. IV contrast: None DLP: Refer to CT protocol form FINDINGS: Loss of mosher-white matter differentiation involving the M1, M2, M4, and M5 regions of the right MCA which has progressed from the outside study.. There is cortical hyperdensity with effacement of adjacent sulci involving the M3 and M6 regions and the posterior insula which has developed over the interval since the outside study Likely chronic infarcts involving the left basal ganglia . Periventricular and supratentorial white matter hypodensities are present. Diffuse cerebral volume loss with compensatory ex vacuo dilation of the ventricular system. No intracranial hemorrhage is identified. The skull base, calvarium, and included facial bones are unremarkable. Mucosal thickening of the left maxillary sinus. Partially visualized endotracheal and enteric tubes.. IMPRESSION: Acute infarction of the right MCA territory with evidence of possible reperfusion, petechial hemorrhagic transformation, and/or contrast enhancement in the territory of the inferior division The Critical findings of acute ischemia were communicated to and acknowledged by Dr. Garces via telephone at 06/11/2024 220 by Carine Love RES. The above findings as well as the CTA findings were also discussed with the neuroendovascular team via telephone at 2:40 a.m. on 06/11/2024. This report was dictated by a Private Duty Aide/Fellow/Physician Regional Maintenance Manager. I have personally reviewed the images as well as the interpretation and agree with the findings. Report finalized by: Marco A Ng MD 06/11/2024 8:10 Echo (TTE) complete 06/11/2024 Interpretation Summary Left Ventricle: Left ventricle is smaller than normal. Mildly increased wall thickness in the left ventricle. Findings consistent with concentric remodeling. Mildly reduced systolic function with an estimated EF of 40 - 45%. Global longitudinal strain is reduced. LV GLS is -10.7%. Abnormal diastolic function of the left ventricle. Right Ventricle: Right ventricle size is normal. Moderately reduced systolic function in the right ventricle. Left Atrium: Left atrium is moderately dilated. Right Atrium: Right atrium size is normal. Aortic Valve: Aortic valve is trileaflet. Mildly thickened leaflets in the aortic valve. Leaflet motion is normal. No aortic regurgitation present. No aortic stenosis present. Tricuspid Valve: Tricuspid valve is structurally normal. Mild tricuspid regurgitation present. RVSP is 48.00 mmHg. Mitral Valve: Mildly calcified leaflets in the mitral valve. Mild mitral annular calcification. Mild mitral regurgitation present. Pulmonic Valve: Pulmonic valve is structurally normal. Aorta: Normal sized aortic root and ascending aorta present. IVC/SVC: IVC diameter is less than or equal to 21 mm and decreases less than 50% during inspiration; therefore the estimated right atrial pressure is intermediate (~8 mmHg). Hepatic veins shows systolic flow reversal suggestive of restrictive filling. Pericardium: No pericardial effusion present. 78 year old female with a history of HTN, DM II, HLD and hypothyroidism who was found to have an ischemic infarct of the right MCA territory at an outside hospital who presented as a transfer for possible thrombectomy. LKN at 5 PM on 06/10. OOW for TNK at OSH. Patient was intubated at the OSH for airway protection. Patient under arrival was comatose, not completely explained by the Right MCA stroke. Possible due to being on sedatives at the OSH, or concern for subclinical seizures. Patient is in NICU for close observation. Patient received CT head upon arrival and was found to have a ischemic stroke in right M2 distribution with aspects of 6. CTA showed a right MCA infarct however as per radiology no stump was found. CT perfusion was obtained and found to have the penumbra/infarct ratio almost 1. The mismatch was 3 ml. There was a concern for subclinical seizures in a setting of clinical exam disproportionate to Neuroimaging findings - keppra load was ordered and given. Ativan 2 mg was administered. EEG no seizures. MRI brain wo acute infarct in R MCA with gyral hemorrhagic transformation.TTE EF 40-45, concentric remodeling , left atrium moderately dilated , no thrombus. 06/12 patient with AMS rCTH/CTA stable. Assessment & Plan Right middle cerebral artery stroke (HCC) Acuity: Acute Suspected Etiology: ICAD vs Cardioembolic (possible Afib on tele) -S/p Keppra 60mg/kg, c/w 750 BID -ASA 81 mg -statin -cvEEG no seizures - dc'ed -MRI brain wo acute infarct in R MCA with gyral hemorrhagic transformation -TTE EF 40-45, concentric remodeling , left atrium moderately dilated , no thrombus - Will eventually need AC for A-fib -SBP< 180 -PT/OT/ST Dysarthria-ST Dysphagia- TF - NGT - ST Hemiplegia (CMS/HCC) (HCC)- PT/OT Acute respiratory failure (HCC)- vent management per ICU -> extubated 06/11 - on RA Atrial fibrillation (CMS/HCC) (HCC)- holding AC at this time due to stroke burden - rate control Hypertension- SBP < 180 - titrate oral agents Hyperlipidemia- Statin - LDL goal < 70 Diabetes mellitus (HCC) Aspiration pneumonia (CMS/HCC) (HCC)- Fever 101 on 06/13 - Started on zosyn 06/13 - Rx cultures 06/13 Acute intracranial hemorrhage (CMS/HCC) (HCC) Current Diet: NPO Diet Cosigned by Vivienne Pisano MD at 06/14/2024 12:27 PM [facility]' L ARTISTS' L ARTISTS' Associated attestation - Vivienne Pisano MD - 06/14/2024 12:27 PM [facility] STROKE NEUROLOGY ATTENDING ATTESTATION I have personally seen and evaluated the patient on June 14, 2024, and I was present for see critical points of the encounter. I have discussed the case with and reviewed the provider note detailed above. I have personally viewed the patient's radiographic studies, laboratory tests, and medications. I agree with the above documented history, exam, assessment and plan. Please see note below for any additions and/or exceptions to the note above. Mental status is still poor. Will start modafinil 100 mg daily. Plan to startOAC 06/17. Plan to repeat swallow study on Saturday, will likely need PEG. Increasing Coreg to 25 BID given heart rate and blood pressure. I provided a substantive portion of the care of this patient. I personally performed the MDM for this encounter. Medical decision making complexity is high with at least 2 out of 3 high complexity categories of problems/data review or assessment/risk. Vivienne Pisano MD, MPHAssistant Professor, Vascular Neurology [employer] [email or web address] Office contact: [phone] Stroke Clinic: [phone] * Michelle Alves Jr., MD - 06/13/2024 7:35 AM [facility]' Subjective NAEO Objective Last Recorded Vitals Blood pressure (!) 168/73, pulse (!) 108, temperature 37.4 ?C (99.4 ?F), temperature source Axillary, resp. rate (!) 25, height 1.55 m (5' 1.02"), weight 61 kg (134 lb 7.7 oz), SpO2 97%. Physical Exam: GENERAL: well nourished HEENT: - Normocephalic and atraumatic; MMM, LUNGS - Clear to auscultation bilaterally with no wheezes CV - tachycardia, intact peripheral pulses ABDOMEN - Soft, nontender, nondistended with normoactive BS Neuro: Mental Status:opens eyes to painful stimuli. Intermittently following commands Speech: dysarthria CN: PERRL 2 mm/ sluggish, R gaze does not cross midline, R FD , face sensation is intact Motor: RUE/RLE AG no drift, LUE WD, LLE WD Sensation: decreased on L Side Coordination: deferred Diagnostic Results CT BRAIN WO IV CONTRAST Result Date: 06/12/2024 EXAM: CT BRAIN WITHOUT CONTRAST DATE: 06/12/2024 15:31 INDICATION: exam change COMPARISON: CT brain without contrast 06/11/2024, MRI brain 06/11/2024 TECHNIQUE: Axial CT images of the brain were obtained. Sagittal and coronal reformats. IV contrast: None DLP: Refer to CT protocol form FINDINGS: Evolving infarct in the right MCA territory infarct that appears increasingly hypodense and areas of evolving cytotoxic edema (series 2 image 13, 20). There is also increased associated effacement of the right lateral ventricle. Leftward midline shift by 5 to 6 mm, mildly increased. Subtle curvilinear hyperdensities in the area of infarction likely correspond to areas of petechial hemorrhage on prior MRI. Chronic lacunar infarcts in the left basal ganglia/camp radiata. Chronic lacunar infarcts in the left thalamus. Periventricular hypodensities likely freight representative of chronic microvascular ischemic disease. Mild diffuse brain parenchymal volume loss with mild ex vacuo ventriculomegaly.. No acute interval osseous changes. Mild opacification in the left maxillary sinus with mucosal thickening. Sclerosis of the left maxillary sinus steiner likely represent the chronic sequela of sinusitis the rest of the paranasal sinuses are predominantly clear. IMPRESSION: 1. Evolving subacute infarct of the right MCA territory associated cytotoxic edema subtle areas of petechial hemorrhagic transformation better appreciated on prior MRI. Increased effacement of the right lateral ventricle with mildly increased midline shift to the left 2. Chronic microangiopathic changes. Chronic infarct in the left basal ganglia/camp radiata. This report was dictated by a Private Duty Aide/Fellow/JASWANT: Vijay Conrad RES, MD 06/12/2024 16:11 This report was dictated by a Private Duty Aide/Fellow/Physician Regional Maintenance Manager. I have personally reviewed the images as well as the interpretation and agree with the findings. Report finalized by: Carol Ann Harper MD 06/12/2024 16:31 CT BRAIN WO IV CONTRAST Result Date: 06/11/2024 EXAM: CT BRAIN WITHOUT CONTRAST DATE: 06/11/2024 1:38 INDICATION: Rm2 occlusion COMPARISON: Same day CTA head. CT head without contrast performed earlier the same day at outside institution TECHNIQUE: Axial CT images of the brain were obtained. Sagittal and coronal reformats. IV contrast: None DLP: Refer to CT protocol form FINDINGS: Loss of mosher-white matter differentiation involving the M1, M2, M4, and M5 regions of the right MCA which has progressed from the outside study.. There is cortical hyperdensity with effacement of adjacent sulci involving the M3 and M6 regions and the posterior insula which has developed over the interval since the outside study Likely chronic infarcts involving the left basal ganglia . Periventricular and supratentorial white matter hypodensities are present. Diffuse cerebral volume loss with compensatory ex vacuo dilation of the ventricular system. No intracranial hemorrhage is identified. The skull base, calvarium, and included facial bones are unremarkable. Mucosal thickening of the left maxillary sinus. Partially visualized endotracheal and enteric tubes.. IMPRESSION: Acute infarction of the right MCA territory with evidence of possible reperfusion, petechial hemorrhagic transformation, and/or contrast enhancement in the territory of the inferior division The Critical findings of acute ischemia were communicated to and acknowledged by Dr. Garces via telephone at 06/11/2024 220 by Carine Love RES. The above findings as well as the CTA findings were also discussed with the neuroendovascular team via telephone at 2:40 a.m. on 06/11/2024. This report was dictated by a Private Duty Aide/Fellow/Physician Regional Maintenance Manager. I have personally reviewed the images as well as the interpretation and agree with the findings. Report finalized by: Marco A Ng MD 06/11/2024 8:10 Echo (TTE) complete 06/11/2024 Interpretation Summary Left Ventricle: Left ventricle is smaller than normal. Mildly increased wall thickness in the left ventricle. Findings consistent with concentric remodeling. Mildly reduced systolic function with an estimated EF of 40 - 45%. Global longitudinal strain is reduced. LV GLS is -10.7%. Abnormal diastolic function of the left ventricle. Right Ventricle: Right ventricle size is normal. Moderately reduced systolic function in the right ventricle. Left Atrium: Left atrium is moderately dilated. Right Atrium: Right atrium size is normal. Aortic Valve: Aortic valve is trileaflet. Mildly thickened leaflets in the aortic valve. Leaflet motion is normal. No aortic regurgitation present. No aortic stenosis present. Tricuspid Valve: Tricuspid valve is structurally normal. Mild tricuspid regurgitation present. RVSP is 48.00 mmHg. Mitral Valve: Mildly calcified leaflets in the mitral valve. Mild mitral annular calcification. Mild mitral regurgitation present. Pulmonic Valve: Pulmonic valve is structurally normal. Aorta: Normal sized aortic root and ascending aorta present. IVC/SVC: IVC diameter is less than or equal to 21 mm and decreases less than 50% during inspiration; therefore the estimated right atrial pressure is intermediate (~8 mmHg). Hepatic veins shows systolic flow reversal suggestive of restrictive filling. Pericardium: No pericardial effusion present. 78 year old female with a history of HTN, DM II, HLD and hypothyroidism who was found to have an ischemic infarct of the right MCA territory at an outside hospital who presented as a transfer for possible thrombectomy. LKN at 5 PM on 06/10. OOW for TNK at OSH. Patient was intubated at the OSH for airway protection. Patient under arrival was comatose, not completely explained by the Right MCA stroke. Possible due to being on sedatives at the OSH, or concern for subclinical seizures. Patient is in NICU for close observation. Patient received CT head upon arrival and was found to have a ischemic stroke in right M2 distribution with aspects of 6. CTA showed a right MCA infarct however as per radiology no stump was found. CT perfusion was obtained and found to have the penumbra/infarct ratio almost 1. The mismatch was 3 ml. There was a concern for subclinical seizures in a setting of clinical exam disproportionate to Neuroimaging findings - keppra load was ordered and given. Ativan 2 mg was administered. EEG no seizures. MRI brain wo acute infarct in R MCA with gyral hemorrhagic transformation.TTE EF 40-45, concentric remodeling , left atrium moderately dilated , no thrombus. 06/12 patient with AMS rCTH/CTA stable. Assessment & Plan Right middle cerebral artery stroke (HCC) Acuity: Acute Suspected Etiology: ICAD vs Cardioembolic (possible Afib on tele) -S/p Keppra 60mg/kg, c/w 750 BID -ASA 81 mg -statin -cvEEG no seizures - will dc -MRI brain wo acute infarct in R MCA with gyral hemorrhagic transformation -TTE EF 40-45, concentric remodeling , left atrium moderately dilated , no thrombus - Will eventually need AC for A-fib -SBP< 180 -PT/OT/ST Dysarthria-ST Dysphagia-NPO until cleared by ST - NGT -ST Hemiplegia (CMS/HCC) (HCC)- PT/OT Acute respiratory failure (HCC)- vent management per ICU -> extubated 06/11 - on RA Atrial fibrillation (CMS/HCC) (HCC)- holding AC at this time due to stroke burden - rate control Hypertension- SBP < 180 - titrate oral agents Hyperlipidemia- Statin - LDL goal < 70 Diabetes mellitus (HCC) Aspiration pneumonia (CMS/HCC) (HCC)- Fever 101 on 06/13 - Started on zosyn 06/13 - Rx cultures 06/13 Current Diet: NPO Diet Cosigned by Vivienne Pisano MD at 06/14/2024 12:02 PM [facility]' L ARTISTS' L ARTISTS' L ARTISTS' L ARTISTS' Associated attestation - Vivienne Pisano MD - 06/14/2024 12:02 PM [facility] STROKE NEUROLOGY ATTENDING ATTESTATION I have personally seen and evaluated the patient on June 13, 2024, and I was present for see critical points of the encounter. I have discussed the case with and reviewed the provider note detailed above. I have personally viewed the patient's radiographic studies, laboratory tests, and medications. I agree with the above documented history, exam, assessment and plan. Please see note below for any additions and/or exceptions to the note above. No seizures on cEEG, will discontinue today. Extubated and stable on room airor minimal supplemental oxygen. Will plan to start OAC on 06/17/24. Unable to get speech swallow due to mental status, will try again on Saturday. Transfer out of unit today. I provided a substantive portion of the care of this patient. I personally performed the MDM for this encounter. Medical decision making complexity is high with at least 2 out of 3 high complexity categories of problems/data review or assessment/risk. Vivienne Pisano MD, MPHAssistant Professor, Vascular Neurology [facility] [employer] [facility] [employer] [email or web address] Office contact: [phone] Stroke Clinic: [phone] * Lauren Renteria, OT - 06/12/2024 4:24 PM [facility]ISTS' Evaluation and Treatment Patient Name: Isabel Henry Today's Date: 06/12/2024 Preferred Language: Kyrgyz Assessment & Plan Assessment: OT Assessment Results: Impaired ADL status, Impaired upper extremity strength, Impaired safe judgment during ADL, Impaired endurance, Impaired fine motor control, Impaired functional mobility Prognosis: Good Evaluation/Treatment Tolerance: Patient tolerated treatment well Medical Staff Made Aware: Yes Pt is presenting to [facility] with a R MCA stroke. Pt is presenting for an OT evaluation this session. Prior to admission, pt was IND with all ADLs and IADLs, no DME required. This session, pt is not opening eyes though will verbally respond to commands and follow commands. Pt requires Mod A for sitting balance, leans to the left side and demos inattention to the left side. Decreased strength on LUE and LLE. Pt also limited by balance, activity tolerance, ADL completion, and decreased safety awareness. Pt will continue to benefit from acute OT services to address deficits. Plan: Treatment Plan/Goals Established with Patient/Caregiver: Yes OT Plan: Skilled OT OT Frequency: 3-5 times per week until discharge OT Discharge Recommendations: Inpatient rehab facility placement OT Planned Treatments: Activities of Daily Living, Balance training, Coordination, Energy conservation training, Patient education, Safety education, Therapeutic activities, Therapeutic exercises OT Duration: Discharge Subjective Pt agreeable to therapy session. Current Problem: Isabel Henry, 78 y.o. female with PMH of HTN, HLD, hypothyroidism, CABG x3, who presented to [facility] on 06/11/2024 as a transfer from [facility] in [facility] for stroke evaluation. LKN was on 06/10/24 at 1700hrs. Baseline MRS; 0. Per daughter, pt was in the living room watching TV when she complaint of LUE pain and numbness, left facial droop, aphasia and dysarthria therefore EMS called. On arrival to ED, SBP 170s, BGLs 200s, NIH 16 (gaze deviation, dysarhria, aphasia, left hemiplegia, facial droop, sensory loss). Pt is not taking any AC/AP. Pt vomited on arrival thus intubated for airway protection. CTH revealed early infarct in Rt MCA territory. 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 Pt received Keppra 1gm load in the ED, Versed 5mg IVPx1, NS 1.5L bolus and s/p Aspirin 325 mg load. No TNK as out of the therapeutic window. Neuroendovascular consulted for Rt M2 occlusion and possible IAT. Pt is transferred to [facility] for possible thrombectomy. Pt is admitted to NSICU for further stroke management and close neurological monitoring. Upon arrival to unit, pt is intubated, on Propofol gtt, no eye opening, no cough/gag/corneal, Rt side flickers and left side flaccid with NIH 32. Baseline TOF: 4/4. S/p Keppra 2500 gms load then Keppra 750mg q12hrs and Ativan 2mg IVPx1 per Neurology. Repeat CTH/CTA H/N and CT brain perfusion ordered. Pain: Pain Assessment: CPOT (06/12/2024 2:00 PM) Objective General Visit Information: Others Present: OT tech Precautions: UE Weight Bearing Status: FWB LE Weight Bearing Status: FWB Cognition: Behavior/Cognition: Lethargic Home Living: Type of Home: House Lives With: Family Home Adaptive Equipment: None Home Living Comments: IND Home Layout: One level Home Access: Level entry Bathroom Shower/Tub: Tub/shower unit Bathroom Toilet: Standard Bathroom Equipment: None Prior Function: Level of [place]: (IND) Receives Help From: Family ADL Assistance: Independent Homemaking Assistance: Independent Self Care (ADL): Eating Assistance: Substantial/Max assistance Grooming Assistance: Substantial/Max assistance Bathing Assistance: Substantial/Max assistance UE Dressing Assistance: Substantial/Max assistance LE Dressing Assistance: Substantial/Max assistance Toileting Assistance: Substantial/Max assistance Mobility/Transfers: Bed Mobility Bed Mobility Bed Mobility: Yes Bed Mobility 1 Level of Assistance 1: Substantial/Max assistance Bed Mobility Comments 1: mAX a Bed Mobility To/From: Supine to sit on EOB Assistive Devices And Adaptive Equipments: No device Bed Mobility 2 Level of Assistance 2: Substantial/Max assistance Bed Mobility Comments 2: Max Ax2 Bed Mobility To/From: Sitting EOB to supine Assistive Devices And Adaptive Equipments: No device Transfer OT General Assessments:ADL Eating Assistance: Substantial/Max assistance Grooming Assistance: Substantial/Max assistance Bathing Assistance: Substantial/Max assistance UE Dressing Assistance: Substantial/Max assistance LE Dressing Assistance: Substantial/Max assistance Toileting Assistance: Substantial/Max assistance Activity ToleranceEndurance: Tolerates 10 - 20 min exercise with multiple rests Sitting Balance: Supports self with 25-50% effort using upper extremity, requires therapist assistance Early Mobility/Exercise Safety Screen: Proceed with mobilization - No exclusion criteria met Vision - Basic AssessmentCurrent Vision: No visual deficits Vision - Complex AssessmentOcular Range of Motion: Within Functional Limits SensationLight Touch: RUE Intact, LUE Impaired ProprioceptionProprioception: RUE Intact, LUE Impaired PerceptionInattention/Neglect: Cues to attend left visual field, Cues to attend to left side of body Initiation: Cues to initiate tasks Motor Planning: Cues to use objects appropriately Perseveration: Not present CoordinationMovements are Fluid and Coordinated: No Hand FunctionGross Grasp: Impaired Coordination: Impaired Extremity Assessments:Right Upper Extremity RUE Assessment RUE Assessment: Within Functional Limits Left Upper Extremity LUE AssessmentLUE Assessment: Exceptions to WFL LUE StrengthLUE Overall Strength: Deficits L Shoulder Flexion: 1/5 L Shoulder Extension: 1/5 L Shoulder ABduction: 1/5 L Shoulder ADduction: 1/5 L Shoulder Internal Rotation: 1/5 L Shoulder External Rotation: 1/5 L Shoulder Horizontal ABduction: 1/5 L Shoulder Horizontal ADduction: 1/5 L Elbow Flexion: 1/5 L Elbow Extension: 1/5 L Forearm Pronation: 1/5 L Forearm Supination: 1/5 L Wrist Flexion: 1/5 L Wrist Extension: 1/5 L Wrist Radial Deviation: 1/5 L Wrist Ulnar Deviation: 1/5 L Gross Party Plan Sales Host/Hostess Strength: 1/5 Treatment:Bed Mobility: Bed Mobility Bed Mobility: Yes Bed Mobility 1 Level of Assistance 1: Substantial/Max assistance Bed Mobility Comments 1: mAX a Bed Mobility To/From: Supine to sit on EOB Assistive Devices And Adaptive Equipments: No device Bed Mobility 2 Level of Assistance 2: Substantial/Max assistance Bed Mobility Comments 2: Max Ax2 Bed Mobility To/From: Sitting EOB to supine Assistive Devices And Adaptive Equipments: No device Transfers: Therapeutic ActivityTherapeutic Activity Time Entry: ALBERT knott OT session. Pt lying in bed and agreeable to therapy session. Completed bed mobility and transitioned to sitting EOB with Max Ax2. Sitting EOB with Max A. Pt tolerates 10 minutes. All assessments completed. Pt transitioned BTB with Max Ax2. Pt was left in bed with all needs met, call light within reach, and RN notified. AM-PAC Daily Activity:Putting on and taking off regular lower body clothing: A Lot Bathing (including washing, rinsing, drying): A Lot Toileting, which includes using toilet, bedpan or urinal: A Lot Putting on and taking off regular upper body clothing: A Lot Taking care of personal grooming such as brushing teeth: A Lot Eating Meals: A Lot AM-PAC Daily Activity Raw Score: 12 Patient Education:Education Documentation Occupational Therapy Plan of Care, taught by Lauren Renteria OT at 06/12/2024 4:21 PM. Learner: Patient Readiness: Acceptance Method: Explanation Response: Verbalizes Understanding, Needs Reinforcement Education CommentsNo comments found. Goals:Encounter Goals Encounter Goals (Active) Pt will tolerate sitting EOB for > 10 minutes with Min A and use of one UE for support in preparation for OOB activity Start: 06/12/24 Expected End: 06/25/24 Pt will complete bed to toilet transfer to [facility] with Min A using AE as needed in preparation for household ambulation Start: 06/12/24 Expected End: 06/26/24 Pt will complete upper and lower body dressing task with Mod A using AE as needed. Start: 06/12/24 Expected End: 06/26/24 Patient will don UE orthotic with Mod A assist in order to promote functional positioning of UE. Start: 06/12/24 Expected End: 06/26/24 Treatment Note: If this is the last documented treatment, then it will signify discharge from acute care prior to discharge from the therapy service and will serve as the discharge summary. Lauren Renteria OT L ARTISTS' * Maisha Adams CCC-[facility] - 06/12/2024 10:20 AM MODEL ARTISTS' Images from the original note were not included. [facility] CLINICAL SWALLOWING EVALUATION (CSE) Patient Name: Isabel Henry Today's Date: 06/12/2024 Room: [place] [address] CLINICAL SWALLOW EVALUATION SUMMARY: Pt was found in bed. Awake but appeared lethargic. Eyes remained closed throughout the visit. Speech intelligibility significantly decreased as characterized by decreased articulatory precision. Nonproductive wet cough observed at baseline. Provided suctioning due to secretion visualized in oral cavity. Pt with difficulty managing own secretion. NGT in nare. EEG monitoring in place. Positioned pt upright and presented po trials of thin liquid. Anterior labial spillage observed secondary to decreased lip closure. Suspect loss of liquid posteriorly over the base of tongue prior to swallow initiation given apparent gulping/audible swallow along with uncoordinated oral transit. Suspect difficulty with bolus containment, bolus control, and bolus propulsion. Laryngeal movement, to palpation, present but suspect decreased range of motion. Weak wet coughing post swallow observed suggesting airway invasion. Multiple swallows per bolus suggesting pharyngeal clearance difficulty. Wet voice post swallow observed. Silent aspiration cannot be ruled out at bedside. Pt is considered at high risk for aspiration at this time. Pt is NOT considered a candidate for FEES/MBS at this time due to current RENY and difficulty with accepting boluses consistently to successfully complete exam. RECOMMENDATIONS: Suggest NPO with continuation of non-oral nutrition/hydration. [facility] will follow for dysphagia management and to determine pt's readiness for instrumental swallow assessment. Follow up with speech/language/cognitive evaluation. Oral care: Suction toothbrush RN notified. PLAN: Treatment/Interventions: Communication functioning, Cognitive communication functioning, Swallow function Frequency: 3-4 times per week GENERAL INFORMATION: Reason for Consult: Pt was referred for a clinical swallow evaluation in the setting of R MCA Oxygenation: RA Behavior:Unable to follow commands Level of Consciousness: Lethargic Pain: Pain Assessment: CPOT Diet Prior to this Evaluation: Temporary Means of Alternative Nutrition & Hydration and NPO Preferred Language: Kyrgyz SWALLOW ASSESSMENT: Consistencies Assessed Consistencies Assessed: Yes Swallowing Overview - Liquids 0 - Thin Liquid: Impaired Clinical Swallow Evaluation Patient Positioning: Upright, In bed Previous History of Dysphagia?: No Inability to Follow One Step Directions?: Yes Tracheostomy Present: No Inability to Manage Their Secretions?: Yes Incomplete Lingual ROM?: Unable to determine/assess Incomplete Facial Symmetry (Facial Droop)?: Unable to determine/assess Voice Change During Swallowing Trials?: No Abnormal/Weak Volitional Cough?: Yes Cough/Throat Clear w/ Trial Consistency?: Yes Dysphonia (Quality and/or Pitch Change)?: Yes Motor Speech Disorder (Dysarthria/Apraxia)?: Yes Apraxia of the Swallow Suspected?: No Delayed Swallow Suspected?: Yes Multiple Swallows Per Bolus Suspected?: Yes Tongue Pumping Suspected?: No OUTCOME MEASURES: International Dysphagia Diet Standardization Initiative - IDDSI Solids - N/A Liquids - N/A IDDSI Level - 0 GOALS: Encounter Goals Encounter Goals (Active) LTG - Patient will improve on swallowing outcome measure Start: 06/12/24 Expected End: 07/10/24 STG - Improve airway protection Start: 06/12/24 Expected End: 07/10/24 STG - Participate in an instrumental swallow study Start: 06/12/24 Expected End: 07/10/24 EDUCATION:Education Documentation Speech-Language/Pathology Treatment Plan, taught by Maisha Adams [facility] at 06/12/2024 10:20 AM. Learner: Family, Patient Readiness: Nonacceptance Method: Explanation Response: No Evidence of Learning, Needs Reinforcement Results of Exam, taught by Maisha Adams [facility] at 06/12/2024 10:20 AM.Learner: Family, Patient Readiness: Nonacceptance Method: Explanation Response: No Evidence of Learning, Needs Reinforcement Education CommentsNo comments found. If this is the last documented treatment, then it will signify discharge from acute care prior to discharge from the therapy service and will serve as the discharge summary. Therapy discharge recommendations are made by determining the patient's prior level of function, assessing current function level and establishing rehab potential. The overall discharge plan may be affected by input from Physicians, Care Coordination, medical condition/status, family support and insurance benefits. ALPESH DenneySLP L ARTISTS' * Nancy Stanford, PT - 06/12/2024 10:19 AM MODEL ARTISTS' Physical Therapy Evaluation and Treatment Note Patient Name: Isabel Henry Today's Date: 06/12/2024 Preferred Language: Kyrgyz Assessment & Plan Assessment: PT Assessment: Pt w/ dese L hemiparesis and neglect, unable to open eyes but was able to follow simple commands on R. She was able to verbalize but is oriented only to self and situation. 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 PT to continue to follow, rec INTENSE INPATIENT POST ACUTE THERAPY Prognosis: Good Evaluation/Treatment Tolerance: Patient tolerated treatment well Medical Staff Made Aware: Yes Plan: Treatment Plan/Goals Established with Patient/Caregiver: Yes Treatment/Interventions: Balance training, Bed mobility training, Functional activities, Gait training, Neuromuscular re-education, Patient education, Therapeutic exercises, Transfer training PT Plan: Skilled PT PT Frequency: 3-5 times per week until discharge PT Discharge Recommendations: Inpatient rehab facility placement PT Recommended Transfer Status: Total assist Subjective Pt lying in bed in NAD, dtr at bedside. Pt on cEEG Current Problem: Isabel Henry, 78 y.o. female with PMH of HTN, HLD, hypothyroidism, CABG x3, who presented to [facility] on 06/11/2024 as a transfer from [facility] in [facility] for stroke evaluation. LKN was on 06/10/24 at 1700hrs. Baseline MRS; 0. Per daughter, pt was in the living room watching TV when she complaint of LUE pain and numbness, left facial droop, aphasia and dysarthria therefore EMS called. On arrival to ED, SBP 170s, BGLs 200s, NIH 16 (gaze deviation, dysarhria, aphasia, left hemiplegia, facial droop, sensory loss). Pt is not taking any AC/AP. Pt vomited on arrival thus intubated for airway protection. CTH revealed early infarct in Rt MCA territory. 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 Pt received Keppra 1gm load in the ED, Versed 5mg IVPx1, NS 1.5L bolus and s/p Aspirin 325 mg load. No TNK as out of the therapeutic window. Neuroendovascular consulted for Rt M2 occlusion and possible IAT. Pt is transferred to [facility] for possible thrombectomy. Pt is admitted to NSICU for further stroke management and close neurological monitoring. Pain: 0/10 Home Living:Type of Home: House Lives With: Family Prior Level of Function:Level of [place]: (independent) ObjectiveGeneral Visit Information: Cognition:Orientation Level: Disoriented to time, Disoriented to place General Assessments:Sensation Sensation Light Touch: RLE Intact, LLE Impaired Balance- SittingStatic Sitting-Balance Support: No upper extremity supported Level of Assistance: Partial/Mod assistance Balance- StandingStatic Standing-Balance Support: Right upper extremity supported Static Standing-Level of Assistance: Substantial/Max assistance Functional Assessments: Bed Mobility Bed Mobility 1: Level of Assistance 1: Substantial/Max assistance Bed Mobility To/From: Supine to sit on EOB, Sitting EOB to supine Transfers Transfers 1:Level of Assistance 1: Substantial/Max assistance Transfer To/From: Luy-bl-Rfgkh/Xhxct-di-Wli Extremity Assessments:Right Lower Extremity RLE Assessment RLE Assessment: Within Functional Limits Left Lower Extremity LLE AssessmentLLE Assessment: (ROM WFL, unable to follow command for MMT, no active spontaneous movement noted) Overall Lower Extremity/Trunk ToneOverall Lower Extremity/Trunk Tone Left Lower Extremity: Hypertonic CognitionOrientation Level: Disoriented to time, Disoriented to place TreatmentTherapeutic activity: Therapeutic Activity Therapeutic Activity Time Entry: 15 Therapeutic Activity 1: Lines organized, VSS. Pt unable to open eyes, when PT opened manually noted strong R gaze preference. She was drowsy but was responsive to questions. She was assisted to sit EOB w/ max A, noted L leaning/pushing in sitting. She required mod A to dangle EOB, sat x 10 minutes for sitting balance training and upright tolerance. Had her perform R elbow lying to inhibit L pushing. She was assisted to partial stand w/ max A for LE weightbearing, then was assisted back to supine. She was positioned for comfort w/ all needs met, dtr at bedside, B wrist restraints secured Outcome Measures: AM-PAC Basic Mobility:Turning in bed without bedrails: A Lot Lying on back to sitting on edge of flat bed: A Lot Bed to chair: A Lot Standing up from chair: A Lot Walk in room: Total Patient Education:Education Documentation Mobility, taught by Nancy Stanford PT at 06/12/2024 10:20 AM. Learner: Family Readiness: Eager Method: Explanation Response: Verbalizes Understanding Physical Therapy Plan of Care, taught by Nancy Stanford PT at 0:20 AM. Learner: Family Readiness: Eager Method: Explanation Response: Verbalizes Understanding Education CommentsNo comments found. Goal:Encounter Goals Encounter Goals (Active) Patient will be min A w/ bed mobility Start: 06/12/24 Expected End: 06/26/24 Patient will be mod A w/ transfers Start: 06/12/24 Expected End: 06/26/24 Patient will be mod A w/ ambulation 10' w/ LRAD Start: 06/12/24 Expected End: 06/26/24 Treatment Note: If this is the last documented treatment, then it will signify discharge from acute care prior to discharge from the therapy service and will serve as the discharge summary. Nancy Stanford PT L ARTISTS' * Concepción Mukherjee NP - 06/12/2024 7:51 AM MODEL ARTISTS' Subjective NAEO Objective Last Recorded Vitals Blood pressure (!) 165/78, pulse (!) 122, temperature 37.2 ?C (99 ?F), temperature source Axillary, resp. rate 22, height 1.55 m (5' 1.02"), weight 61 kg (134 lb 7.7 oz), SpO2 96%. Physical Exam: GENERAL: well nourished HEENT: - Normocephalic and atraumatic; MMM, LUNGS - Clear to auscultation bilaterally with no wheezes CV - tachycardia, intact peripheral pulses ABDOMEN - Soft, nontender, nondistended with normoactive BS Neuro: Mental Status:opens eyes to painful stimuli. Follows commands Speech: dysarthria CN: PERRL 2 mm/ sluggish, R gaze does not cross midline, R FD , face sensation is intact Motor: RUE/RLE AG no drift, LUE WD, LLE WD Sensation: decreased on L Side Coordination: deferred Diagnostic Results CT BRAIN WO IV CONTRAST Result Date: 06/11/2024 EXAM: CT BRAIN WITHOUT CONTRAST DATE: 06/11/2024 1:38 INDICATION: Rm2 occlusion COMPARISON: Same day CTA head. CT head without contrast performed earlier the same day at outside institution TECHNIQUE: Axial CT images of the brain were obtained. Sagittal and coronal reformats. IV contrast: None DLP: Refer to CT protocol form FINDINGS: Loss of mosher-white matter differentiation involving the M1, M2, M4, and M5 regions of the right MCA which has progressed from the outside study.. There is cortical hyperdensity with effacement of adjacent sulci involving the M3 and M6 regions and the posterior insula which has developed over the interval since the outside study Likely chronic infarcts involving the left basal ganglia . Periventricular and supratentorial white matter hypodensities are present. Diffuse cerebral volume loss with compensatory ex vacuo dilation of the ventricular system. No intracranial hemorrhage is identified. The skull base, calvarium, and included facial bones are unremarkable. Mucosal thickening of the left maxillary sinus. Partially visualized endotracheal and enteric tubes.. IMPRESSION: Acute infarction of the right MCA territory with evidence of possible reperfusion, petechial hemorrhagic transformation, and/or contrast enhancement in the territory of the inferior division The Critical findings of acute ischemia were communicated to and acknowledged by Dr. Garces via telephone at 06/11/2024 220 by Carine Love RES. The above findings as well as the CTA findings were also discussed with the neuroendovascular team via telephone at 2:40 a.m. on 06/11/2024. This report was dictated by a Private Duty Aide/Fellow/Physician Regional Maintenance Manager. I have personally reviewed the images as well as the interpretation and agree with the findings. Report finalized by: Marco A Ng MD 06/11/2024 8:10 Echo (TTE) complete 06/11/2024 Interpretation Summary Left Ventricle: Left ventricle is smaller than normal. Mildly increased wall thickness in the left ventricle. Findings consistent with concentric remodeling. Mildly reduced systolic function with an estimated EF of 40 - 45%. Global longitudinal strain is reduced. LV GLS is -10.7%. Abnormal diastolic function of the left ventricle. Right Ventricle: Right ventricle size is normal. Moderately reduced systolic function in the right ventricle. Left Atrium: Left atrium is moderately dilated. Right Atrium: Right atrium size is normal. Aortic Valve: Aortic valve is trileaflet. Mildly thickened leaflets in the aortic valve. Leaflet motion is normal. No aortic regurgitation present. No aortic stenosis present. Tricuspid Valve: Tricuspid valve is structurally normal. Mild tricuspid regurgitation present. RVSP is 48.00 mmHg. Mitral Valve: Mildly calcified leaflets in the mitral valve. Mild mitral annular calcification. Mild mitral regurgitation present. Pulmonic Valve: Pulmonic valve is structurally normal. Aorta: Normal sized aortic root and ascending aorta present. IVC/SVC: IVC diameter is less than or equal to 21 mm and decreases less than 50% during inspiration; therefore the estimated right atrial pressure is intermediate (~8 mmHg). Hepatic veins shows systolic flow reversal suggestive of restrictive filling. Pericardium: No pericardial effusion present. ECG 12 lead Result Date: 06/11/2024 Impression: ATRIAL FIBRILLATION ABNORMAL QRS-T ANGLE, CONSIDER PRIMARY T WAVE ABNORMALITY PROLONGED QT INTERVAL OR TU FUSION, CONSIDER MYOCARDIAL DISEASE, ELECTROLYTE IMBALANCE, OR DRUG EFFECTS ABNORMAL ECG NO PREVIOUS ECGS AVAILABLE 78 year old female with a history of HTN, DM II, HLD and hypothyroidism who was found to have an ischemic infarct of the right MCA territory at an outside hospital who presented as a transfer for possible thrombectomy. LKN at 5 PM on 06/10. OOW for TNK at OSH. Patient was intubated at the OSH for airway protection. Patient under arrival was comatose, not completely explained by the Right MCA stroke. Possible due to being on sedatives at the OSH, or concern for subclinical seizures. Patient is in NICU for close observation. Patient received CT head upon arrival and was found to have a ischemic stroke in right M2 distribution with aspects of 6. CTA showed a right MCA infarct however as per radiology no stump was found. CT perfusion was obtained and found to have the penumbra/infarct ratio almost 1. The mismatch was 3 ml. There was a concern for subclinical seizures in a setting of clinical exam disproportionate to Neuroimaging findings - keppra load was ordered and given. Ativan 2 mg was administered. EEG no seizures. MRI brain wo acute infarct in R MCA with gyral hemorrhagic transformation.TTE EF 40-45, concentric remodeling , left atrium moderately dilated , no thrombus. 06/12 patient with AMS rCTH/CTA stable. Assessment & Plan Right middle cerebral artery stroke (HCC) Acuity: Acute Suspected Etiology: ICAD vs Cardioembolic (possible Afib on tele) -S/p Keppra 60mg/kg, c/w 750 BID -ASA 81 mg -statin -cvEEG no seizures -MRI brain wo acute infarct in R MCA with gyral hemorrhagic transformation -TTE EF 40-45, concentric remodeling , left atrium moderately dilated , no thrombus -SBP< 180 -PT/OT/ST Dysarthria-ST Dysphagia-NPO until cleared by ST - NGT -ST Hemiplegia (CMS/HCC) (HCC)- PT/OT Acute respiratory failure (HCC)- vent management per ICU -> extubated 06/11 - on RA Atrial fibrillation (CMS/HCC) (HCC)- holding AC at this time due to stroke burden - rate control Hypertension- SBP < 180 - titrate oral agents Hyperlipidemia- Statin - LDL goal < 70 Current Diet: NPO Diet DARCY Pink-BCStroke Team B MAILS SUPERVISOR [id number] 7-5PM, Please call [phone] after 5PM Case discussed with Dr. Pisano who agrees with the plan of care. Cosigned by Vivienne Pisano MD at 06/12/2024 8:17 PM MODEL ARTISTS' L ARTISTS' L ARTISTS' L ARTISTS' L ARTISTS' Associated attestation - Vivienne Piasno MD - 06/12/2024 8:17 PM MODEL ARTISTS' STROKE NEUROLOGY ATTENDING ATTESTATION I have personally seen and evaluated the patient on June 12, 2024, and I was present for see critical points of the encounter. I have discussed the case with and reviewed the provider note detailed above. I have personally viewed the patient's radiographic studies, laboratory tests, and medications. I agree with the above documented history, exam, assessment and plan. Please see note below for any additions and/or exceptions to the note above. Patient with R MCA infarction and now in aFib. Per family, patient may havebeen diagnosed previously. No OAC. Extubated successfully. No clinical seizures or electrographic seizures. Discontinue cEEG. Will likely start apixaban on 06/17/24, and then obtain repeat head CT as patient with some HT. I provided a substantive portion of the care of this patient. I personally performed the MDM for this encounter. Medical decision making complexity is high with at least 2 out of 3 high complexity categories of problems/data review or assessment/risk. Vivienne Pisano MD, MPHAssistant Professor, Vascular Neurology [facility] [employer] Cory @[facility] Office contact: [phone] Stroke Clinic: [phone] * Gerson Guardado COURT ABSTRACTOR - 06/11/2024 2:38 PM MODEL ARTISTS' 06/11/24 1433 Readmission Questions Is this hospital visit a Readmission? No Discharge Planning Information Source Family Permanent Residence Private residence Household Members Children;Family members Support Systems Children;Family members Arrived From Permanent Residence Barriers to Discharge Home Intubated, stroke w/u, evals In the last 12 months, was there a time when you were not able to pay the mortgage or rent on time? N In the past 12 months, how many times have you moved where you were living? 0 At any time in the past 12 months, were you homeless or living in a skilled nursing (including now)? N In the past 12 months has the [employer], [employer], or water [employer] threatened to shut off services in your home? No Within the past 12 months, you worried that your food would run out before you got the money to buy more. Never true Within the past 12 months, the food you bought just didn't last and you didn't have money to get more. Never true Assistive Devices Shower chair Assistance Needed PT/OT/ST Patient expects to be discharged to: IPR Expected Discharge Disposition IRF Anticipated Services at Discharge Post acute facilities (Rehab/SNF/etc) Type of Post Acute Facility Services Rehab In the past 12 months, has lack of transportation kept you from medical appointments or from getting medications? no In the past 12 months, has lack of transportation kept you from meetings, work, or from getting things needed for daily living? No Does the patient need discharge transport arranged? No Discharge Planning Comments SW spoke with patient's granddaughter, Will Henry, and she stated that patient is currently living at her uncle's home, but will more than likely move into her home after discharge. Patient has 3 adult children who are her legal NOK. Patient's granddaughter is her primary laborer livestock, and she, along with patient's sons, provide transportation for patient. Patient was independent prior to admission and only utilizeda shower chair. Patient is currently pending MD recs for after discharge, but if discharged home, patient's family will provide trasnport and assistance. CM/DIEGO will follow for discharge planning while inpatient. Discharge Planning Status Initial Assessment Complete Gerson Guardado LMSW [phone] L ARTISTS' * Jackie Burrell - 06/11/2024 12:40 PM MODEL ARTISTS' Spiritual Care Subjective Responded to Admissions request. Pt is intubated and sedated. No family present. Provided prayer and left cleaning custodian brochure at bedside. Will follow as circumstances allow. InterventionsRelationship Building Interventions: Provided compassionate presence Ritual Interventions: Provided prayer PlanFollow-up: Follow PRN L ARTISTS' * Maisha Adams CCC-[facility] - 06/11/2024 9:05 AM MODEL ARTISTS' Speech-Language Pathology Encounter Note Patient Name: Isabel Henry Today's Date: 06/11/2024 Missed Treatment Time and Reason Orders received. Chart reviewed. Per EMR/team's progress note, pt is currently intubated. [facility] will follow to complete evaluations post extubation when pt's status allows. Maisha Adams CCC-[facility] L ARTISTS' * Nancy Stanford, PT - 06/11/2024 6:06 AM MODEL ARTISTS' Physical Therapy Encounter Note Patient Name: Isabel Henry Today's Date: 06/11/2024 Missed Treatment Time and Reason Order received. Pt intubated and in critical condition, will hold and f/u when appropriate for PT shona Stanford, PT L ARTISTS' [id number]:20:11Pending Results Scheduled Orders Name Type Priority Associated Diagnoses Order Schedule Electrocardiogram, 12-lead ECG Routine Once for 1 Occurrences starting 06/11/2024 until 06/11/2024 Basic Metabolic Panel Lab Routine [place] shant draw (Lab) for 4 Weeks starting 06/11/2024 until 07/08/2024, 16 completed Calcium Level Ionized Serum Lab Routine Every Mon/Sat/Fr i (Lab) for 4 Weeks starting 06/12/2024 until 07/08/2024, 6 completed ECG 12 lead ECG STAT Once for 1 Occurrences starting 06/11/2024 until 06/11/2024 Magnesium Level Lab Routine Every Mon /Wed/Fri (Lab) for 4 Weeks starting 06/12/2024 until 07/08/2024, 7 completed Phosphorus Level Lab Routine Every Mo n/Sat/Fri (Lab) for 4 Weeks starting 06/12/2024 until 07/08/2024, 7 completed POCT Glucose Point of Care Testin g - Docked Device Routine Every 4 hours (Lab) for 30 Days starting 06/11/2024 until 07/11/2024, 86 completed POCT Glucose Point of Care Testin g - Docked Device Routine Every 15 minutes as needed until discontinued starting 06/11/2024 Respiratory Culture w/Gram Stain Microbiology Routine Once (Lab) for 1 Occurrences starting 06/13/2024 until 06/13/2024 Complete Blood Count w/Diff and Platelet Lab Routine Morning draw (Lab) until discontinued starting 06/14/2024, 14 completed ECG 12 lead ECG Routine Once for 1 Occurrences starting 06/22/2024 until 06/22/2024 Respiratory Culture w/Gram Stain Microbiology Routine Once (Lab) for 1 Occurrences starting 06/22/2024 until 06/22/2024 POCT Glucose Point of Care Testin g - Docked Device Routine Every 6 hours (Lab) for 30 Days starting 06/22/2024 until 07/22/2024, 19 completed POCT Glucose Point of Care Testin g - Docked Device Routine Every 15 minutes as needed until discontinued starting 06/22/2024 POCT Blood Glucose Point of Care Testing Routine Once (Lab) for 1 Occurrences starting 06/23/2024 until 06/23/2024 ECG 12 lead ECG STAT Once for 1 Occurrences starting 06/23/2024 until 06/23/2024 Transesophageal echo (SAYRA) with possible cardioversion Echocardiography Routine Once for 1 Occurrences starting 06/26/2024 until 06/26/2024 Chest physiotherapy Respiratory Care Routine For RT use only 0800, 1999 until discontinued starting 06/27/2024 Cardiac event monitor Cardiac Services STAT Once for 1 Occurrences starting 06/27/2024 until 06/27/2024 Scheduled Referrals Name Type Priority Associated Diagnoses Order Schedule Ambulatory referral to Cardiac Electrophysiology Outpatient Referral Routine Persistent atrial fibrillation (HCC) Longstanding persistent atrial fibrillation (CMS/HCC) (HCC) Expected: 06/27/2024 (Approximate), Expires: 06/27/2025 Ambulatory referral to Neurology Outpatient Referral Routine Right middle cerebral artery stroke (HCC) Expected: 06/27/2024 (Approximate), Expires: 06/27/2025 Ambulatory referral to Endocrinology Outpatient Referral Routine Type 2 diabetes mellitus with other specified complication, with long-term current use of insulin (HCC) Expected: 06/27/2024 (Approximate), Expires: 06/27/2025 Health Maintenance Due Date Last Done Comments Bone Density Scan 1945 Medicare Annual Wellness (AWV) 1945 Annual Physical 10/27/1948 Pneumococcal Vaccine: 65+ Years (1 of 2 - PCV) 1950 Diabetes: Foot Exam 1954 Diabetes: Retinopathy Screening 1954 DTaP/Tdap/Td Vaccines (1 - Tdap) 10/27/1963 Diabetes: Urine Protein Screening 10/27/1963 Zoster Vaccines (1 of 2) 1994 Respiratory Syncytial Virus (RSV) or >=60 (1 - 1-dose 75+ series) 10/27/2019 Influenza Vaccine (#1) 2024 Diabetes: Hemoglobin A1C 12/09/2024 025, 06/11/2024 Lipid Panel 06/11/2025 06/11/2024, 06/11/2024 HIB Vaccines Aged Out No longer eligi ble based on patient's age to complete this topic HPV Vaccines Aged Out No longer eligi ble based on patient's age to complete this topic Hepatitis A Vaccines Aged Out No long er eligible based on patient's age to complete this topic Hepatitis B Vaccines Aged Out No long er eligible based on patient's age to complete this topic IPV Vaccines Aged Out No longer eligi ble based on patient's age to complete this topic Meningococcal Vaccine Aged Out No lorri jad eligible based on patient's age to complete this topic Rotavirus Vaccines Aged Out No longer eligible based on patient's age to complete this topic [id number] [id number] 15:20:11 [facility] [id number] 15:20:11 Diagnosis Right middle cerebral artery stroke (HCC) - Primary Right middle cerebral artery stroke (HCC) Dysphagia, unspecified type Persistent atrial fibrillation (HCC) Atrial fibrillation Longstanding persistent atri al fibrillation (CMS/HCC) (HCC) Type 2 diabetes mellitus wit h other specified complication, with long-term current use of insulin (HCC) Acute respiratory failure (HCC) Acute respiratory failure Hypertension Unspecified essential hypertension Hyperlipidemia Other and unspecified hyperlipidemia Dysphagia Dysarthria Hemiplegia (CMS/HCC) (HCC) Unspecified hemiplegia affecting unspecified side Atrial fibrillation (CMS/HCC) (HCC) Atrial fibrillation Diabetes mellitus (HCC) Type II or unspecified type diabetes mellitus without mention of complication, not stated as uncontrolled Aspiration pneumonia (CMS/HCC) (HCC) Pneumonitis due to inhalation of food or vomitus UTI (urinary tract infection) Urinary tract infection, site not specified Influenza A Influenza with other respiratory manifestations [facility] [id number] 15:20:11 [place] [id number] 14:27:39 Images from the original note were not included. [id number] Tetracycline Brand Name(s): Achromycin V?, Sumycin?; also available generically WHY is this medicine prescribed? Tetracycline is used to treat infections caused by bacteria including pneumonia and other respiratory tract infections; ; certain infections of skin, eye, lymphatic, intestinal, genital and urinary systems; and certain other infections that are spread by ticks, lice, mites, and infected animals. It is also used along with other medications to treat acne. Tetracycline is also used to treat plague and tuleramia (serious infections that may be spread on purpose as part of a bioterror attack). It can also be used in patients who cannot be treated with penicillin to treat certain types of food poisoning, and anthrax (a serious infection that may be spread on purpose as part of a bioterror attack). Tetracycline is in a class of medications called tetracycline antibiotics. It works by preventing the growth and spread of bacteria. Antibiotics such as tetracycline will not work for colds, flu, or other viral infections. Using antibiotics when they are not needed increases your risk of getting an infection later that resists antibiotic treatment. HOW should this medicine be used? Tetracycline comes as a capsule to take by mouth. It is usually taken two or four times daily. Tetracycline should be taken on an empty stomach, at least 1 hour before or 2 hours after meals or snacks. Drink a full glass of water with each dose of tetracycline. Do not take tetracycline with food, especially dairy products such as milk, yogurt, cheese, and ice cream. Follow the directions on your prescription label carefully, and ask your doctor or pharmacist to explain any part you do not understand. Take tetracycline exactly as directed. Do not take more or less of it or take it more often than prescribed by your doctor. Are there OTHER USES for this medicine? Tetracycline is also sometimes used to treat Lyme disease and malaria, and to prevent plague and tularemia in people who have been exposed to plague or tularemia germs. Talk to your doctor about the risks of using this medication for your condition. This medication is sometimes prescribed for other uses; ask your doctor or pharmacist for more information. What SPECIAL PRECAUTIONS should I follow? Before taking tetracycline, ? tell your doctor and pharmacist if you are allergic to tetracycline, minocycline, doxycycline, demeclocycline, any other medications, or any of the ingredients in the tetracycline capsule. Ask your pharmacist for a list of the ingredients. ? tell your doctor and pharmacist what prescription and nonprescription medicines, vitamins, nutritional supplements, and herbal products you are taking or plan to take while taking tetracycline. Your doctor may need to change the doses of your medications or monitor you carefully for side effects. ? be aware that antacids containing magnesium, aluminum, calcium, or sodium bicarbonate, calcium supplements, zinc products, iron products, and laxatives containing magnesium interfere with tetracycline, making it less effective. Take tetracycline 2 hours before or 6 hours after antacids, calcium supplements, zinc products, and laxatives containing magnesium. Take tetracycline 2 hours before or 4 hours after iron preparations and vitamin products that contain iron. Take tetracycline 2 hours before or after zinc containing products. ? you should know that tetracycline may decrease the effectiveness of hormonal contraceptives ( control pills, patches, rings, and injections). You will need to use another method of contraception to prevent while taking tetracycline. Talk to your doctor about other ways to prevent while you are taking this medication. ? tell your doctor if you have or have ever had lupus (condition in which the immune system attacks many tissues and organs including the skin, joints, blood, and kidneys), or kidney disease. ? tell your doctor if you are , plan to become , or are . If you become while taking tetracycline, call your doctor immediately. Tetracycline can harm the fetus. ? plan to avoid unnecessary or prolonged exposure to sunlight and to wear protective clothing, sunglasses, and sunscreen. Tetracycline may make your skin sensitive to sunlight. Tell your doctor right away if you get a sunburn. ? you should know that when tetracycline is used during or in babies or children up to age 8, it can cause the teeth to become permanently stained. Tetracycline should not be used in children under age 8 unless your doctor decides it is needed. What SPECIAL DIETARY instructions should I follow? Unless your doctor tells you otherwise, continue your normal diet. What should I do IF I FORGET to take a dose? Take the missed dose as soon as you remember it. However, if it is almost time for the next dose, skip the missed dose and continue your regular dosing schedule. Do not take a double dose to make up for a missed one. What SIDE EFFECTS can this medicine cause? Some side effects can be serious. If you experience any of these symptoms, call your doctor immediately: ? headache ? blurred vision, seeing double, or loss of vision ? skin rash ? hives ? swelling of the face, throat, tongue, lips, and eyes ? difficulty breathing or swallowing ? joint stiffness or swelling ? unusual bleeding or bruising ? chest pain ? a return of fever, sore throat, chills, or other signs of infection ? watery or bloody stools , stomach cramps, or fever during treatment or for up to two or more months after stopping treatment Tetracycline may cause other side effects. Call your doctor if you have any unusual problems while taking this medication. If you experience a serious side effect, you or your doctor may send a report to the Food and Drug Administration's (FDA) MedWatch Adverse Event Reporting program online (https://www.fda.gov/Safety/MedWatch) or by phone ( ). What should I know about STORAGE and DISPOSAL of this medication? Keep this medication in the container it came in, tightly closed, and out of reach of children. Store it at room temperature and away from light and excess heat and moisture (not in the bathroom). Unneeded medications should be disposed of in special ways to ensure that pets, children, and other people cannot consume them. However, you should not flush this medication down the toilet. Instead, the best way to dispose of your medication is through a medicine take-back program. Talk to your pharmacist or contact your local garbage/recycling department to learn about take-back programs in your community. See the FDA's Safe Disposal of Medicines website (https://goo.gl/c4Rm4p) for more information if you do not have access to a take-back program. It is important to keep all medication out of sight and reach of children as many containers (such as weekly pill minders and those for eye drops, creams, patches, and inhalers) are not child-resistant and young children can open them easily. To protect young children from poisoning, always lock safety caps and immediately place the medication in a safe location -- one that is up and away and out of their sight and reach. https://www.upandaway.org What should I do in case of OVERDOSE? In case of overdose, call the poison control helpline at . Information is also available online at https://www.poisonhelp.org/help. If the victim has collapsed, had a seizure, has trouble breathing, or can't be awakened, immediately call emergency services at 911. What OTHER INFORMATION should I know? Keep all appointments with your doctor and the laboratory. Your doctor will order certain lab tests to check your response to tetracycline. Before having any laboratory test, tell your doctor and the laboratory personnel that you are taking tetracycline. Do not let anyone else take your medication. Your prescription is probably not refillable. If you still have symptoms of infection after you finish the tetracycline, call your doctor. It is important for you to keep a written list of all of the prescription and nonprescription (ahyt-ovf-otbzuyj) medicines you are taking, as well as any products such as vitamins, minerals, or other dietary supplements. You should bring this list with you each time you visit a doctor or if you are admitted to a hospital. It is also important information to carry with you in case of emergencies. This report on medications is for your information only, and is not considered individual patient advice. Because of the changing nature of drug information, please consult your physician or pharmacist about specific clinical use. The [employer] represents that the information provided hereunder was formulated with a reasonable standard of care, and in conformity with professional standards in the field. The [employer] makes no representations or warranties, express or implied, including, but not limited to, any implied warranty of merchantability and/or fitness for a particular purpose, with respect to such information and specifically disclaims all such warranties. Users are advised that decisions regarding drug therapy are complex medical decisions requiring the independent, informed decision of an appropriate health critical care registered nurse, and the information is provided for informational purposes only. The entire monograph for a drug should be reviewed for a thorough understanding of the drug's actions, uses and side effects. The [employer] does not endorse or recommend the use of any drug. The information is not a substitute for medical care. AHFS? Patient Medication Information?. ? Copyright, 2023. [employer]?, [address], [address], [place], [place]. All Rights Reserved. Duplication for commercial use must be authorized by [facility]. Selected Revisions: January 08, 2017. AHFS? Patient Medication Information?. ? Copyright, 2024 [facility] 14:27:31 Images from the original note were not included. [id number] Taking a Beta-Sally A beta-sally decreases your heart?s workload and helps it beat more regularly. It can also help increase your heart's pumping ability. This can reduce chest pain. It may also lower your blood pressure and heart rate. This medicine is sometimes used to treat other medical problems, such as high blood pressure and irregular heart rhythms. The name of my beta-sally is: I?m taking it for: Medicine tips ? Read the fact sheet that comes with your medicine. Ask for a sheet if you don?t get one. ? Take your beta-sally exactly as directed. Follow the directions on the label. ? Take your medicine at the same time or times every day. ? If you take a long-acting tablet or capsule, swallow it whole. Don't chew it, crush it, or break it open unless you are told it's OK to do so. ? If you miss a dose, take it as soon as you remember?unless it?s almost time for your next dose. If so, skip the missed dose. Don't take a double dose. For your safety ? Tell any healthcare provider you have (including your pharmacist) before taking any other prescription or scnd-gfg-[id number] medicines. This includes vitamin supplements and herbal remedies. ? Don't stop taking your beta-sally unless your healthcare provider tells you to. Doing so can make your condition worse. When it's time to stop, follow your healthcare provider?s instructions. ? Don't drive or operate heavy machinery unless you are sure your beta-sally doesn?t make you sleepy or dizzy. ? To prevent dizziness, get up slowly after sitting or lying down. ? Ask your healthcare provider to check your pulse rate before and after taking your beta-sally. Possible side effects Along with their intended effects, medicine can have unwanted side effects. These effects may go away as your body adjusts to the medicine. Possible side effects of beta-blockers include: ? Dizziness or lightheadedness ? Tiredness, drowsiness, or weakness ? Sexual dysfunction ? Trouble sleeping ? Mood changes or depression ? Fainting ? Slow heartbeat ? Low blood pressure ? Weight gain Talk to your healthcare provider if you have side effects that bother you or don?t go away. When to get medical advice Call your healthcare provider right away if any of the following occur: ? Fainting ? Swelling in your lower legs or feet ? Yellowing skin or eyes ? Numbness or tingling ? Skin rash or itching Call 911 Call 911 if any of the following occur: ? Wheezing or trouble breathing ? Chest pain, or a slow or irregular heartbeat Last Reviewed Date: 2021 00:00:00 ? 5196-0250 [employer]. All rights reserved. This information is not intended as a substitute for professional medical care. Always follow your healthcare professional's instructions. [facility]2025-02-01 14:27:03 Images from the original note were not included. [id number] Hydralazine Brand Name(s): Apresoline?, Dralzine?, Apresazide? (as a combination product containing Hydralazine, Hydrochlorothiazide), Apresoline-Esidrix? (as a combination product containing Hydralazine, Hydrochlorothiazide), BiDil? (as a combination product containing Hydralazine, Isosorbide Dinitrate), Dralserp? (as a combination product containing Hydralazine, Reserpine), Hydra-Zide? (as a combination product containing Hydralazine, Hydrochlorothiazide), Hydrap-ES? (as a combination product containing Hydralazine, Hydrochlorothiazide, Reserpine), Marpres? (as a combination product containing Hydralazine, Hydrochlorothiazide, Reserpine), Ser-Ap-Es? (as a combination product containing Hydralazine, Hydrochlorothiazide, Reserpine), Serathide? (as a combination product containing Hydralazine, Hydrochlorothiazide, Reserpine), Serpazide? (as a combination product containing Hydralazine, Hydrochlorothiazide, Reserpine), Serpex? (as a combination product containing Hydralazine, Hydrochlorothiazide, Reserpine), Unipres? (as a combination product containing Hydralazine, Hydrochlorothiazide, Reserpine); also available generically WHY is this medicine prescribed? Hydralazine is used to treat high blood pressure. Hydralazine is in a class of medications called vasodilators. It works by relaxing the blood vessels so that blood can flow more easily through the body. High blood pressure is a common condition and when not treated, can cause damage to the brain, heart, blood vessels, kidneys and other parts of the body. Damage to these organs may cause heart disease, a heart attack, heart failure, stroke, kidney failure, loss of vision, and other problems. In addition to taking medication, making lifestyle changes will also help to control your blood pressure. These changes include eating a diet that is low in fat and salt, maintaining a healthy weight, exercising at least 30 minutes most days, not smoking, and using alcohol in moderation. HOW should this medicine be used? Hydralazine comes as a tablet to take by mouth. It usually is taken two to four a day. Take hydralazine at around the same times every day. Follow the directions on your prescription label carefully, and ask your doctor or pharmacist to explain any part you do not understand. Take hydralazine exactly as directed. Do not take more or less of it or take it more often than prescribed by your doctor. Hydralazine controls high blood pressure but does not cure it. Continue to take hydralazine even if you feel well. Do not stop taking hydralazine without talking to your doctor. Are there OTHER USES for this medicine? Hydralazine is also used after heart valve replacement and in the treatment of heart failure. Talk to your doctor about the possible risks of using this medication for your condition. This medication is sometimes prescribed for other uses; ask your doctor or pharmacist for more information. What SPECIAL PRECAUTIONS should I follow? Before taking hydralazine, ? tell your doctor and pharmacist if you are allergic to hydralazine, aspirin, tartrazine (a yellow dye in some processed foods and medications), any other medications, or any of the ingredients in hydralazine tablets. Ask your pharmacist for a list of the ingredients. ? tell your doctor and pharmacist what prescription and nonprescription medications, vitamins, nutritional supplements, and herbal products you are taking or plan to take while taking hydralazine. Your doctor may need to change the doses of your medications or monitor you carefully for side effects. ? tell your doctor if you have ever had a heart attack, or have coronary artery disease, rheumatic heart disease, or heart, kidney or liver disease. ? tell your doctor if you are , plan to become , or are breast-feeding. If you become while taking hydralazine, call your doctor. ? if you are having surgery, including dental surgery, tell the doctor or dentist that you are taking hydralazine. ? ask your doctor about the safe use of alcohol while you are taking hydralazine. Alcohol can make the side effects from hydralazine worse. What SPECIAL DIETARY instructions should I follow? Take hydralazine with meals or a snack. Your doctor may prescribe a low-salt or low-sodium diet. Follow these directions carefully. What should I do IF I FORGET to take a dose? Take the missed dose as soon as you remember it. However, if it is almost time for the next dose, skip the missed dose and continue your regular dosing schedule. Do not take a double dose to make up for a missed one. What SIDE EFFECTS can this medicine cause? Some side effects can be serious. If you experience any of the following symptoms, call your doctor immediately: ? fainting ? joint or muscle pain ? fever ? rapid heartbeat ? chest pain ? swollen ankles or feet ? numbing or tingling in hands or feet If you experience a serious side effect, you or your doctor may send a report to the Food and Drug Administration's (FDA) MedWatch Adverse Event Reporting program online (https://www.fda.gov/Safety/MedWatch) or by phone ( ). What should I know about STORAGE and DISPOSAL of this medication? Keep this medication in the container it came in, tightly closed, and out of reach of children. Store at room temperature and away from excess heat and moisture (not in the bathroom). Unneeded medications should be disposed of in special ways to ensure that pets, children, and other people cannot consume them. However, you should not flush this medication down the toilet. Instead, the best way to dispose of your medication is through a medicine take-back program. Talk to your pharmacist or contact your local garbage/recycling department to learn about take-back programs in your community. See the FDA's Safe Disposal of Medicines website (https://goo.gl/c4Rm4p) for more information if you do not have access to a take-back program. It is important to keep all medication out of sight and reach of children as many containers (such as weekly pill minders and those for eye drops, creams, patches, and inhalers) are not child-resistant and young children can open them easily. To protect young children from poisoning, always lock safety caps and immediately place the medication in a safe location -- one that is up and away and out of their sight and reach. https://www.upandaway.org What should I do in case of OVERDOSE? In case of overdose, call the poison control helpline at . Information is also available online at https://www.poisonhelp.org/help. If the victim has collapsed, had a seizure, has trouble breathing, or can't be awakened, immediately call emergency services at [phone]. What OTHER INFORMATION should I know? Keep all appointments with your doctor and the laboratory. Your blood pressure should be checked regularly to determine your response to hydralazine. Your doctor may ask you to check your blood pressure daily. Ask your doctor or pharmacist to teach you how. Do not let anyone else take your medication. Ask your pharmacist any questions you have about refilling your prescription. It is important for you to keep a written list of all of the prescription and nonprescription (muae-tsr-xdygepv) medicines you are taking, as well as any products such as vitamins, minerals, or other dietary supplements. You should bring this list with you each time you visit a doctor or if you are admitted to a hospital. It is also important information to carry with you in case of emergencies. This report on medications is for your information only, and is not considered individual patient advice. Because of the changing nature of drug information, please consult your physician or pharmacist about specific clinical use. [employer] represents that the information provided hereunder was formulated with a reasonable standard of care, and in conformity with professional standards in the field. [employer] makes no representations or warranties, express or implied, including, but not limited to, any implied warranty of merchantability and/or fitness for a particular purpose, with respect to such information and specifically disclaims all such warranties. Users are advised that decisions regarding drug therapy are complex medical decisions requiring the independent, informed decision of an appropriate health critical care registered nurse, and the information is provided for informational purposes only. The entire monograph for a drug should be reviewed for a thorough understanding of the drug's actions, uses and side effects. [employer] does not endorse or recommend the use of any drug. The information is not a substitute for medical care. AHFS? Patient Medication Information?. ? Copyright, 2023. [employer]?, [address], [address], [place], [place]. All Rights Reserved. Duplication for commercial use must be authorized by [facility]. Selected Revisions: November 08, 2016. AHFS? Patient Medication Information?. ? Copyright, 2024 [facility]2025-02-01 14:26:52 Images from the original note were not included. [id number] Apixaban Brand Name(s): Eliquis?; also available generically IMPORTANT WARNING: If you have atrial fibrillation (a condition in which the heart beats irregularly, increasing the chance of clots forming in the body, and possibly causing strokes) and are taking apixaban to help prevent strokes or serious blood clots, you are at a higher risk of having a stroke after you stop taking this medication. Do not stop taking apixaban without talking to your doctor. Continue to take apixaban even if you feel well. Be sure to refill your prescription before you run out of medication so that you will not miss any doses of apixaban. If you need to stop taking apixaban, your doctor may prescribe another anticoagulant ('blood thinner') to help prevent a blood clot from forming and causing you to have a stroke. If you have epidural or spinal anesthesia or a spinal puncture while taking a 'blood thinner' such as apixaban, you are at risk of having a blood clot form in or around your spine that could cause you to become paralyzed. Tell your doctor if you have an epidural catheter that is left in your body or have or have ever had repeated epidural or spinal punctures, spinal deformity, or spinal surgery. Tell your doctor and pharmacist if you are taking any of the following: anagrelide (Agrylin); aspirin and other nonsteroidal anti-inflammatory drugs (NSAIDs) such as ibuprofen (Advil, Motrin, others), indomethacin (Indocin, Tivorbex), ketoprofen, and naproxen (Aleve, Anaprox, others); cilostazol (Pletal); clopidogrel (Plavix); dipyridamole (Persantine); eptifibatide (Integrilin); heparin; prasugrel (Effient); ticagrelor (Brilinta); ticlopidine; tirofiban (Aggrastat), and warfarin (Coumadin, Jantoven). If you experience any of the following symptoms, call your doctor immediately: muscle weakness (especially in your legs and feet), numbness or tingling (especially in your legs), or loss of control of your bowels or bladder. Your doctor or pharmacist will give you the hydro sprayer operator's patient information sheet (Medication Guide) when you begin treatment with apixaban and each time you refill your prescription. Read the information carefully and ask your doctor or pharmacist if you have any questions. You can also visit the Food and Drug Administration (FDA) website (https://www.fda.gov/Drugs/DrugSafety/pwe090342.htm) or the hydro sprayer operator's website to obtain the Medication Guide. Talk to your doctor about the risks of taking apixaban. WHY is this medicine prescribed? Apixaban is used to help prevent strokes or blood clots in people who have atrial fibrillation (a condition in which the heart beats irregularly, increasing the chance of clots forming in the body and possibly causing strokes) that is not caused by heart valve disease. Apixaban is also used to prevent deep vein thrombosis (DVT; a blood clot, usually in the leg) and pulmonary embolism (PE; a blood clot in the lung) in people who are having hip replacement or knee replacement surgery. Apixaban is also used to treat DVT and PE and may be continued to prevent DVT and PE from happening again after the initial treatment is completed. Apixaban is in a class of medications called factor Xa inhibitors. It works by blocking the action of a certain natural substance that helps blood clots to form. HOW should this medicine be used? Apixaban comes as a tablet to take by mouth. It is usually taken with or without food twice a day. When apixaban is taken to prevent DVT and PE after hip or knee replacement surgery, the first dose should be taken at least 12 to 24 hours after surgery. Apixaban is usually taken for 35 days after a hip replacement surgery and for 12 days after knee replacement surgery. Take apixaban at around the same times every day. Follow the directions on your prescription label carefully, and ask your doctor or pharmacist to explain any part you do not understand. Take apixaban exactly as directed. Do not take more or less of it or take it more often than prescribed by your doctor. If you are unable to swallow the tablets, you can crush them and mix with water, apple juice, or applesauce. Swallow the mixture right after you prepare it. Apixaban can also be given in certain types of feeding tubes. Ask your doctor if you should take this medication in your feeding tube. Follow your doctor's directions carefully. Continue to take apixaban even if you feel well. Do not stop taking apixaban without talking to your doctor. If you stop taking apixaban, your risk of a blood clot may increase. Are there OTHER USES for this medicine? This medication may be prescribed for other uses; ask your doctor or pharmacist for more information. What SPECIAL PRECAUTIONS should I follow? Before taking apixaban, ? tell your doctor and pharmacist if you are allergic to apixaban, any other medications, or any of the ingredients in apixaban tablets. Ask your pharmacist or check the Medication Guide for a list of the ingredients. ? Tell your doctor and pharmacist what prescription and nonprescription medications, vitamins, nutritional supplements, and herbal products you are taking or plan to take while taking apixaban. Your doctor may need to change the doses of your medications or monitor you carefully for side effects.. ? The following nonprescription or herbal products may interact with apixaban: Nelson's wort; aspirin; NSAIDs (such as ibuprofen [Advil, Motrin] and naproxen [Aleve, Naprosyn]). Be sure to let your doctor and pharmacist know that you are taking these medications before you start taking apixaban. Do not start any of these medications while taking apixaban without discussing with your healthcare provider. ? you should know that apixaban may interact with certain medications that may be used to treat you if you have a stroke or other medical emergency. In case of an emergency, you or a family member should tell the doctor or emergency room staff who treat you that you are taking apixaban. ? tell your doctor if you have an artificial heart valve or if you have heavy bleeding anywhere in your body that cannot be stopped. Your doctor will probably tell you not to take apixaban. ? tell your doctor if you have or have ever had any type of bleeding problem, antiphospholipid syndrome (APS; a condition that causes blood clots), or kidney or liver disease. ? tell your doctor if you are , plan to become , or are . If you become while taking apixaban, call your doctor. ? if you are having surgery, including dental surgery, tell the doctor or dentist that you are taking apixaban. Your doctor may tell you to stop taking apixaban before the surgery or procedure. If you need to stop taking apixaban because you are having surgery, your doctor may prescribe a different medication to prevent blood clots during this time. Your doctor will tell you when you should start taking apixaban again after your surgery. Follow these directions carefully. ? Call your doctor right away if you fall or injure yourself, especially if you hit your head. Your doctor may need to check you. What SPECIAL DIETARY instructions should I follow? Unless your doctor tells you otherwise, continue your normal diet. What should I do IF I FORGET to take a dose? Take the missed dose as soon as you remember it. However, if it is almost time for the next dose, skip the missed dose and continue your regular dosing schedule. Do not take a double dose to make up for a missed one. What SIDE EFFECTS can this medicine cause? Some side effects can be serious. If you experience any of these symptoms, call your doctor immediately or get emergency medical treatment: ? bleeding gums ? nosebleeds ? heavy vaginal bleeding ? red, pink, or brown urine ? red or black, tarry stools ? coughing up or vomiting blood or material that looks like coffee grounds ? swelling or joint pain ? headache ? rash ? chest pain or tightness ? swelling of the face or tongue ? trouble breathing ? wheezing ? feeling dizzy or faint Apixaban prevents blood from clotting normally, so it may take longer than usual for you to stop bleeding if you are cut or injured. This medication may also cause you to bruise or bleed more easily. Call your doctor right away if bleeding or bruising is unusual, severe, or cannot be controlled. Apixaban may cause other side effects. Call your doctor if you have any unusual problems while taking this medication. If you experience a serious side effect, you or your doctor may send a report to the Food and Drug Administration's (FDA) MedWatch Adverse Event Reporting program online (https://www.fda.gov/Safety/MedWatch) or by phone ( ). What should I know about STORAGE and DISPOSAL of this medication? Keep this medication in the container it came in, tightly closed, and out of reach of children. Store it at room temperature and away from light, excess heat and moisture (not in the bathroom). Unneeded medications should be disposed of in special ways to ensure that pets, children, and other people cannot consume them. However, you should not flush this medication down the toilet. Instead, the best way to dispose of your medication is through a medicine take-back program. Talk to your pharmacist or contact your local garbage/recycling department to learn about take-back programs in your community. See the FDA's Safe Disposal of Medicines website (https://goo.gl/c4Rm4p) for more information if you do not have access to a take-back program. It is important to keep all medication out of sight and reach of children as many containers (such as weekly pill minders and those for eye drops, creams, patches, and inhalers) are not child-resistant and young children can open them easily. To protect young children from poisoning, always lock safety caps and immediately place the medication in a safe location -- one that is up and away and out of their sight and reach. https://www.upandaway.org What should I do in case of OVERDOSE? In case of overdose, call the poison control helpline at . Information is also available online at https://www.poisonhelp.org/help. If the victim has collapsed, had a seizure, has trouble breathing, or can't be awakened, immediately call emergency services at 911. Symptoms of overdose may include the following: ? unusual bleeding or bruising ? red, brown, or pink urine ? red or black, tarry stools ? coughing up or vomiting blood or material that looks like coffee grounds What OTHER INFORMATION should I know? Keep all appointments with your doctor. Do not let anyone else take your medication. Ask your pharmacist any questions you have about refilling your prescription. It is important for you to keep a written list of all of the prescription and nonprescription (psct-nez-qvbsevz) medicines you are taking, as well as any products such as vitamins, minerals, or other dietary supplements. You should bring this list with you each time you visit a doctor or if you are admitted to a hospital. It is also important information to carry with you in case of emergencies. This report on medications is for your information only, and is not considered individual patient advice. Because of the changing nature of drug information, please consult your physician or pharmacist about specific clinical use. [employer] represents that the information provided hereunder was formulated with a reasonable standard of care, and in conformity with professional standards in the field. [employer] makes no representations or warranties, express or implied, including, but not limited to, any implied warranty of merchantability and/or fitness for a particular purpose, with respect to such information and specifically disclaims all such warranties. Users are advised that decisions regarding drug therapy are complex medical decisions requiring the independent, informed decision of an appropriate health critical care registered nurse, and the information is provided for informational purposes only. The entire monograph for a drug should be reviewed for a thorough understanding of the drug's actions, uses and side effects. [employer] does not endorse or recommend the use of any drug. The information is not a substitute for medical care. AHFS? Patient Medication Information?. ? Copyright, 2023. [employer]?, [address], [address], [place], [place]. All Rights Reserved. Duplication for commercial use must be authorized by [facility]. Selected Revisions: April 10, 2023. AHFS? Patient Medication Information?. ? Copyright, 2024 [facility] Syed [id number] 14:26:43 Images from the original note were not included. [id number] Atorvastatin Brand Name(s): Atorvaliq?, Lipitor?, Caduet? (as a combination product containing Amlodipine, Atorvastatin), Lipqozet? (as a combination product containing Atorvastatin, Ezetimibe), Liptruzet? (as a combination product containing Atorvastatin, Ezetimibe); also available generically WHY is this medicine prescribed? Atorvastatin is used together with diet, weight loss, and exercise to reduce the risk of heart attack and stroke and to decrease the chance that heart surgery will be needed in people who have heart disease or who are at risk of developing heart disease. Atorvastatin is also used to decrease the amount of fatty substances such as low-density lipoprotein (LDL) cholesterol ('bad cholesterol') and triglycerides in the blood and to increase the amount of high-density lipoprotein (HDL) cholesterol ('good cholesterol') in the blood. Atorvastatin may also be used to decrease the amount of cholesterol and other fatty substances in the blood in children and teenagers 10 to 17 years of age who have familial heterozygous hypercholesterolemia (an inherited condition in which cholesterol cannot be removed from the body normally). Atorvastatin is in a class of medications called HMG-CoA reductase inhibitors (statins). It works by slowing the production of cholesterol in the body to decrease the amount of cholesterol that may build up on the steiner of the arteries and block blood flow to the heart, brain, and other parts of the body. Accumulation of cholesterol and fats along the steiner of your arteries (a process known as atherosclerosis) decreases blood flow and, therefore, the oxygen supply to your heart, brain, and other parts of your body. Lowering your blood level of cholesterol and fats with atorvastatin has been shown to prevent heart disease, angina (chest pain), strokes, and heart attacks. HOW should this medicine be used? Atorvastatin comes as a tablet and suspension (liquid) to take by mouth. The tablet is usually taken once a day with or without food. The suspension is usually taken once a day on an empty stomach (at least 1 hour before or 2 hours after a meal).Take atorvastatin at around the same time every day. Follow the directions on your prescription label carefully, and ask your doctor or pharmacist to explain any part you do not understand. Take atorvastatin exactly as directed. Do not take more or less of it or take it more often than prescribed by your doctor. Your doctor may start you on a low dose of atorvastatin and gradually increase your dose, not more than once every 2 to 4 weeks. If you are taking the suspension, do not use a household spoon to measure your dose. Use a properly marked measuring device such as a medicine spoon or oral syringe. Ask your doctor or pharmacist if you need help getting or using a measuring device. Continue to take atorvastatin even if you feel well. Do not stop taking atorvastatin without talking to your doctor. Are there OTHER USES for this medicine? This medication may be prescribed for other uses; ask your doctor or pharmacist for more information. What SPECIAL PRECAUTIONS should I follow? Before taking atorvastatin, ? tell your doctor and pharmacist if you are allergic to atorvastatin, any other medications, or any of the ingredients in atorvastatin tablets and suspension. Ask your pharmacist for a list of the ingredients. ? Tell your doctor and pharmacist what prescription and nonprescription medications, vitamins, nutritional supplements, and herbal products you are taking or plan to take while taking atorvastatin. Your doctor may need to change the doses of your medications or monitor you carefully for side effects. ? The following nonprescription products may interact with atorvastatin: cimetidine (Tagamet), and niacin. Be sure to let your doctor and pharmacist know that you are taking these medications before you start taking atorvastatin. Do not start any of these medications while taking atorvastatin without discussing with your healthcare provider. ? tell your doctor if you have or ever had liver disease. Your doctor will order laboratory tests to see how well your liver is working even if you do not think you have liver disease. Your doctor will probably tell you not to take atorvastatin if you have liver disease or if the tests show you may be developing liver disease. ? tell your doctor if you drink more than 2 alcoholic beverages daily, if you are 65 years of age or older, and if you have or have ever had muscle aches or weakness, diabetes, seizures, low blood pressure, or thyroid or kidney disease. ? tell your doctor if you are or plan to become . If you become while taking atorvastatin, stop taking atorvastatin and call your doctor immediately. Atorvastatin may harm the fetus. ? tell your doctor if you are or plan to breastfeed. You should not breastfeed while you are taking this medication. ? if you are having surgery, including dental surgery, tell the doctor or dentist that you are taking atorvastatin. If you are hospitalized due to serious injury or infection, tell the doctor who treats you that you are taking atorvastatin. ? ask your doctor about the safe use of alcoholic beverages while you are taking atorvastatin. Alcohol can increase the risk of serious side effects. What SPECIAL DIETARY instructions should I follow? Eat a low-fat, low-cholesterol diet. Be sure to follow all exercise and dietary recommendations made by your doctor or dietitian. You can also visit the National Cholesterol Education Program (NCEP) website for additional dietary information at https://www.nhlbi.nih.gov/health/public/heart/chol/chol_tlc.pdf. Avoid drinking large amounts [more than 1.2 liter (approximately 1 quart) per day] of grapefruit juice while taking atorvastatin. What should I do IF I FORGET to take a dose? If you miss a dose of the tablet, skip the missed dose and continue your regular dosing schedule. Do not take a double dose to make up for a missed one. If you miss a dose of the suspension, take the missed dose as soon as you remember it. However, if it is less than 12 hours until your next scheduled dose, skip the missed dose and continue your regular dosing schedule. Do not take a double dose to make up for a missed one. What SIDE EFFECTS can this medicine cause? Some side effects can be serious. The following symptoms are uncommon, but if you experience any of them, call your doctor or get emergency medical help immediately: ? muscle pain, tenderness, or weakness ? lack of energy ? fever ? chest pain ? nausea ? extreme tiredness ? weakness ? unusual bleeding or bruising ? loss of appetite ? pain in the upper right part of the stomach ? flu-like symptoms ? dark colored urine ? yellowing of the skin or eyes ? rash ? hives ? itching ? difficulty breathing or swallowing ? swelling of the face, throat, tongue, lips, eyes, hands, feet, ankles, or lower legs ? hoarseness Atorvastatin may cause other side effects. Call your doctor if you have any unusual problems while taking this medication. If you experience a serious side effect, you or your doctor may send a report to the Food and Drug Administration's (FDA) MedWatch Adverse Event Reporting program online (https://www.fda.gov/Safety/MedWatch) or by phone ( ). What should I know about STORAGE and DISPOSAL of this medication? Keep this medication in the container it came in, tightly closed, and out of reach of children. Store it at room temperature and away from excess heat and moisture (not in the bathroom). Unneeded medications should be disposed of in special ways to ensure that pets, children, and other people cannot consume them. However, you should not flush this medication down the toilet. Instead, the best way to dispose of your medication is through a medicine take-back program. Talk to your pharmacist or contact your local garbage/recycling department to learn about take-back programs in your community. See the FDA's Safe Disposal of Medicines website (https://goo.gl/c4Rm4p) for more information if you do not have access to a take-back program. It is important to keep all medication out of sight and reach of children as many containers (such as weekly pill minders and those for eye drops, creams, patches, and inhalers) are not child-resistant and young children can open them easily. To protect young children from poisoning, always lock safety caps and immediately place the medication in a safe location -- one that is up and away and out of their sight and reach. https://www.upandaway.org What should I do in case of OVERDOSE? In case of overdose, call the poison control helpline at . Information is also available online at https://www.poisonhelp.org/help. If the victim has collapsed, had a seizure, has trouble breathing, or can't be awakened, immediately call emergency services at 405. What OTHER INFORMATION should I know? Keep all appointments with your doctor and the laboratory. Your doctor may order certain lab tests during your treatment , especially if you develop symptoms of liver damage. Before having any laboratory test, tell your doctor and the laboratory personnel that you are taking atorvastatin. Do not let anyone else take your medication. Ask your pharmacist any questions you have about refilling your prescription. It is important for you to keep a written list of all of the prescription and nonprescription (tyai-ivp-gqxppcc) medicines you are taking, as well as any products such as vitamins, minerals, or other dietary supplements. You should bring this list with you each time you visit a doctor or if you are admitted to a hospital. It is also important information to carry with you in case of emergencies. This report on medications is for your information only, and is not considered individual patient advice. Because of the changing nature of drug information, please consult your physician or pharmacist about specific clinical use. The [employer] [employer] represents that the information provided hereunder was formulated with a reasonable standard of care, and in conformity with professional standards in the field. The [employer] [employer] makes no representations or warranties, express or implied, including, but not limited to, any implied warranty of merchantability and/or fitness for a particular purpose, with respect to such information and specifically disclaims all such warranties. Users are advised that decisions regarding drug therapy are complex medical decisions requiring the independent, informed decision of an appropriate health critical care registered nurse, and the information is provided for informational purposes only. The entire monograph for a drug should be reviewed for a thorough understanding of the drug's actions, uses and side effects. The [employer] [employer] does not endorse or recommend the use of any drug. The information is not a substitute for medical care. AHFS? Patient Medication Information?. ? Copyright, 2023. The [employer]?, [address], [address], [place], [place]. All Rights Reserved. Duplication for commercial use must be authorized by [facility]. Selected Revisions: December 14, 2023. AHFS? Patient Medication Information?. ? Copyright, 2024 [facility] [id number] 14:26:29 Images from the original note were not included. [id number] Established High Blood Pressure High blood pressure (hypertension) is a long-term (chronic) disease. Often health care providers don?t know what causes it. But it can be caused by certain health conditions and medicines. If you have high blood pressure, you may not have any symptoms. If you do have symptoms, they may include: ? Headaches. ? Dizziness. ? Changes in your vision. ? Chest pain. ? Shortness of breath. But even without symptoms, high blood pressure that?s not treated raises your risk for heart attack, heart failure, kidney disease, and stroke. High blood pressure is a serious health risk and shouldn?t be ignored. Blood pressure measurements are given as 2 numbers. Systolic blood pressure is the upper number. This is the pressure when the heart contracts. Diastolic blood pressure is the lower number. This is the pressure when the heart relaxes between beats. You will see your blood pressure readings written together. For example, a person with a systolic pressure of 118 and a diastolic pressure of 78 will have 118/78 written in the medical record. Blood pressure is classified as normal, raised (elevated) or stage 1 or stage 2 high blood pressure: ? Normal blood pressure. Systolic of less than 120 and diastolic of less than 80 (120/80). ? Elevated blood pressure. Systolic of 120 to 129 and diastolic less than 80. ? Stage 1 high blood pressure. Systolic is 130 to 139 or diastolic between 80 to 89. ? Stage 2 high blood pressure. Systolic is 140 or higher or the diastolic is 90 or higher. Home care If you have high blood pressure, follow these home care guidelines to help lower your blood pressure. If you are taking medicines for high blood pressure, these methods may reduce or end your need for medicines in the future. ? Start a weight-loss program if you are overweight. ? Cut back on how much salt you get in your diet. Here?s how to do this: o Don?t eat foods that have a lot of salt. These include olives, pickles, smoked meats, and salted potato chips. o Don?t add salt to your food at the table. o Use only small amounts of salt when cooking. ? Start an exercise program. Talk with your health care provider about the type of exercise program that would be best for you. It doesn't have to be hard. Even brisk walking for 20 minutes 3 times a week is a good form of exercise. ? Don?t take medicines that stimulate the heart. This includes many bjyb-joi-jqhwgqy cold and sinus decongestant pills and sprays, as well as diet pills. Check the warnings about high blood pressure on the label. Before buying any cwuo-inz-fysvgso medicines or supplements, always ask the pharmacist about the product's possible interaction with your high blood pressure and your high blood pressure medicines. ? Stimulants, such as amphetamine or cocaine, could be deadly for someone with high blood pressure. Never take these. ? Limit how much caffeine you get in your diet. Switch to caffeine-free products. ? Stop smoking. If you are a long-time smoker, this can be hard. Talk with your healthcare provider about medicines and nicotine replacement choices to help you. Also join a stop-smoking program. This makes it more likely that you will quit for good. ? Learn how to handle stress. This is an important part of any program to lower blood pressure. Learn about relaxation methods, such as meditation, yoga, or biofeedback. ? If your provider prescribed medicines, take them exactly as directed. Missing doses may cause your blood pressure to get out of control. ? If you miss a dose, check with your provider or pharmacist about what to do. ? Think about buying an automatic blood pressure machine to check your blood pressure at home. Ask your provider for a recommendation. You can get one of these at most pharmacies. Using a home blood pressure monitor The [place] [employer] advises the following guidelines for home blood pressure monitoring: ? Don't smoke or drink coffee for 30 minutes before taking your blood pressure. ? Go to the bathroom before the test. ? Relax for at least 5 minutes before taking the measurement. ? Sit with your back supported (don't sit on a couch or soft chair). Keep your feet on the floor uncrossed. Place your arm on a solid flat surface (such as a table) with the upper part of the arm at heart level. Place the middle of the cuff directly above the bend of the elbow. Do not take the measurements over clothes. Check the monitor's instruction manual for an illustration. ? Take multiple readings. When you measure, take 2 to 3 readings 1 minute apart and record all of the results. ? Take your blood pressure at the same time every day, or as your healthcare provider advises. ? Record the date, time, and blood pressure reading. ? Take the record with you to your next healthcare appointment. If your blood pressure monitor has a built-in memory, just take the monitor with you to your next appointment. ? Call your provider if you have several high readings. Don't be frightened by one high blood pressure reading. But if you get a few high readings, check in with your provider. Follow-up care You will need to see your health care provider regularly. This is to check your blood pressure and to make changes to your medicines. Make a follow-up appointment as directed. Bring the record of your home blood pressure readings to the appointment. Call 911 Call 911 if you have any of these: ? Blood pressure of 180/120 or higher and any other symptoms linked to organ damage. These include: o Unusual chest pain or shortness of breath. o Weakness of an arm or leg or one side of the face. o Problems speaking or seeing. o Severe headaches. o Sudden severe pain in your belly (abdomen) or back. o Extreme drowsiness, confusion, or fainting. o Passing out or seizures. o Severe dizziness or spinning feeling (vertigo) that doesn't go away. When to get medical advice Contact your health care provider or get medical care right away if you have: ? Blood pressure of 180/120 or higher, without other symptoms. ? Throbbing or rushing sound in the ears. ? A nosebleed. ? Mild or intermittent dizziness or spinning feeling (vertigo). Last Reviewed Date: 2024 00:00:00 ? [id number] [employer]. All rights reserved. This information is not intended as a substitute for professional medical care. Always follow your healthcare professional's instructions. [facility]2025-02-01 14:25:54 Images from the original note were not included. [id number] Understanding Atrial Fibrillation (A-Fib) Atrial fibrillation (A-fib) is the most common type of arrhythmia. An arrhythmia is any problem with the speed or pattern of the heartbeat. A-fib causes fast, chaotic electrical signals in the atria. This makes it hard for the heart to work as it should. It affects how much blood your heart can pump out to the body. A-fib may occur once in a while and go away on its own. This is called paroxysmal. Or it may continue for longer periods. This is called persistent. A-fib can lead to serious problems, such as stroke. Your health care provider will need to watch and manage your condition. What happens during atrial fibrillation? The heart has an electrical system. This sends signals to control the heartbeat. As the signals move through the heart, they tell the heart?s upper chambers (atria) and lower chambers (ventricles) when to squeeze (contract) and relax. This lets blood move through the heart and out to the body and lungs. With A-fib, the atria get abnormal signals. This causes them to contract in a fast and irregular way. They are out of sync with the ventricles. The atria have a harder time moving blood into the ventricles. Blood may then pool in the atria. This increases the risk for blood clots and stroke. The ventricles may contract too quickly and irregularly. They may not pump blood to the body and lungs as well as they should. This can weaken the heart muscle over time. It can lead to heart failure. Heart failure means the heart muscle can?t pump blood well. What causes atrial fibrillation? A-fib is more common in older adults. It can be caused by: ? Older age. ? Coronary artery disease. ? Heart valve disease. ? Heart attack. ? Heart surgery. ? High blood pressure. ? Thyroid disease. ? Diabetes. ? Lung disease. ? Sleep apnea. ? Heavy alcohol use. In some cases of A-fib, health care providers don't know the cause. What are the symptoms of atrial fibrillation? A-fib may not cause symptoms. If symptoms do occur, they may include: ? A fast, pounding, irregular heartbeat. ? Shortness of breath. ? Tiredness. ? Dizziness or fainting. ? Chest pain. How is atrial fibrillation treated? Treatments for A-fib can include any of the below. ? Medicines. You may be prescribed: o Heart rate medicines to help slow down the heartbeat. o Heart rhythm medicines to help the heart beat more regularly. o Blood thinners or anticlotting medicines to help reduce the risk for blood clots and stroke. ? Left atrial appendage closure. Your health care provider may advise this procedure to prevent stroke. You may need it if you are at high risk for stroke but have problems taking blood-thinner (anticoagulant) medicines. This procedure is done through a catheter in the groin. A device is placed in the part of the heart where most clots form. This area is called the left atrial appendage (KIRIT). It's a pouch-like structure in the muscle wall of the left atrium. The device closes off the KIRIT. It prevents clots moving from the heart to the brain and causing a stroke. ? Electrical cardioversion. Your provider uses special pads or paddles to send 1 or more brief electrical shocks to the heart. This treatment can help reset the heartbeat to normal. ? Ablation. Long, thin tubes (catheters) are threaded through a blood vessel to the heart. In the heart, the catheters send out hot or cold energy to the places that cause the abnormal signals. This destroys the problem tissue or cells. This treatment improves the chances that your heart will stay in normal rhythm without using medicines. If your heart rate and rhythm can?t be controlled, you may need an AV node ablation and a pacemaker. These will help control the heart rate and help keep your heartbeat regular. ? Surgery. Your provider may use a method to create scar tissue in the parts of the heart causing the abnormal signals. The scar tissue disrupts the abnormal signals. This may stop A-fib from occurring. Most often, the left atrial appendage is closed off as well. ? Hybrid surgical-catheter ablation for A-fib. This treatment is used for people with A-fib that continues or is hard to treat. It combines surgery with a catheter ablation. First, the surgeon makes small cuts (incisions) between the ribs in the chest or in the abdomen near the sternum. The surgeon puts a scope through the incisions. This is done to get to the backside and other areas of the heart. Energy is sent to the surface of the atria. This disrupts the abnormal electrical signals. Then a catheter is put into a vein in the groin. The catheter is guided into the heart. Using the catheter, radiofrequency ablation is done. This destroys any other tissue inside the heart that is causing the A-fib. It's also done to assess the success of the surgery. This hybrid treatment may work better to block the abnormal electrical signals. It may be a more lasting fix for persistent A-fib. What are possible complications of atrial fibrillation? Problems caused by A-fib can include: ? Blood clots. ? Stroke. ? Dementia. ? Heart failure. When should I call my health care provider? Contact your health care provider right away if you have any of these: ? Symptoms that don?t get better with treatment or that get worse. ? New symptoms. Last Reviewed Date: 2024 00:00:00 ? [id number] [employer]. All rights reserved. This information is not intended as a substitute for professional medical care. Always follow your healthcare professional's instructions. [facility]2025-02-01 14:25:40 Images from the original note were not included. [id number] Stroke (Completed) You have had a stroke, or cerebrovascular accident (CVA). This is caused by a loss of blood flow to part of your brain. Ischemic type strokes can occur when a blood clot forms inside the carotid artery (main artery from the heart to the brain). Or a clot can form inside the heart and travel to the brain to lodge in a blood vessel and block blood flow. Another common ischemic cause of stroke is a gradual narrowing of the arteries in the brain because of buildup of fatty deposits (plaque). A clot can form at such a narrowing. Less commonly, infection or cancer can cause ischemic stroke. An autoimmune disease can cause inflammation of the blood vessels and also lead to stroke. A second type of stroke is hemorrhagic stroke. It occurs when a blood vessel ruptures and causes bleeding inside the brain . Symptoms Blocked blood flow in different areas of the brain can cause different symptoms. If you have had a stroke before, a new one may be different. A memory aid for the basic signs of a stroke is B.E.F.A.S.T. B.E. F.A.S.T. ? B is for balance. Sudden loss of balance or coordination. ? E is for eyes. Vision changes in one or both eyes. ? F is for face drooping. Drooping or numbness on one side of the face. This may be more noticeable when you ask the affected person to smile. ? A is for arm weakness or numbness. The affected person may have trouble using or lifting one side. ? S is for speech difficulty. Speech may be slurred or hard to understand. The affected person may also use the wrong words. ? T is for time to call 911. Time is critical in treating a stroke. Call 911 as soon as you suspect a stroke has happened?even a small one. The sooner treatment is started the better, even if the symptoms go away. Other common symptoms of a stroke include: ? Having trouble getting the right words to come out ? Weakness in one leg ? Numbness on one side ? Trouble walking ? Trouble with coordination ? Trouble with vision ? Severe headache ? Confusion ? Dizziness Treatment After you have had a stroke, you are at risk of having another. Be sure to follow up with your healthcare provider for more assessment and treatment. If problems are found, your healthcare provider will advise treatment with medicines, procedures, or both. To reduce your chance of having another stroke, you may be prescribed medicines. These include medicines to prevent blood clots, such as antiplatelet or anticoagulant medicines. Certain heart conditions can be treated with surgery to reduce the risk for more strokes. Surgery to open up a blockage in the carotid artery (endarterectomy) may also reduce the risk for future strokes. You will likely need physical therapy, including speech and occupational therapy if appropriate. This can be done at home, at an outpatient office, or in a rehabilitation hospital. Which location depends on your needs and abilities. Home care ? Rest at home and don't exert yourself for the next few days. ? If your healthcare provider has prescribed medicines, take them as directed. Follow-up care Follow up with your healthcare provider, or as advised. Additional tests may be needed. If you had an X-ray, CT scan, MRI, or ECG (electrocardiogram), it will be reviewed by a specialist. You will be notified of any new findings that will affect your care. Call 911 Call 911 if any of these occur: ? Any of your stroke symptoms worsen ? Sudden new problems with speech, confusion, vision, walking, coordination, facial droop, or weakness or numbness on one side of your body ? Severe headache, fainting spell, dizziness, or seizure ? Chest pain or shortness of breath Remember B.E. F.A.S.T. (described above). If you notice warning signs and symptoms of stroke, Call [address] yourself or the victim. The ambulance can alert the hospital and start treatment. Last Reviewed Date: 2022 00:00:00 ? [employer]. All rights reserved. This information is not intended as a substitute for professional medical care. Always follow your healthcare professional's instructions. [facility] [id number] 14:25:33 Images from the original note were not included. [id number] Symptoms of a Stroke During a stroke, blood stops flowing to part of the brain or there is bleeding in the brain. This can damage areas in the brain that control the rest of the body. A stroke can happen to anyone at any age. Call 911 and get help right away if any of these symptoms come on suddenly, even if the symptoms don?t last. Know the symptoms of a stroke A sudden feeling of weakness on one side of your body may be a sign that you are having a stroke. ? Weakness. You may feel a sudden weakness, tingling, or a loss of feeling on one side of your face or body including your arm or leg. ? Vision problems. You may have sudden double vision or trouble seeing in one or both eyes. ? Speech problems. You may have sudden trouble talking, slurred speech, or problems understanding others. ? Headache. You may have a sudden, severe headache. ? Movement problems. You may have sudden trouble walking, dizziness, a feeling of spinning, a loss of balance, a feeling of falling, or blackouts. ? Seizure. You may also have a seizure as the first symptom of a stroke. When to call 911 Remember: If you have any of these symptoms, or if someone you are with has these symptoms, call 911 as soon as possible. Never drive yourself or the person with symptoms to the hospital. The ambulance can alert the hospital and start treatment right away. B.E. F.A.S.T. is an easy way to remember the signs of a stroke. When you see these signs, you will know that you need to call 911 fast. B.E. F.A.S.T. stands for: ? B is for balance. Sudden loss of balance or coordination. ? E is for eyes. Vision changes in one or both eyes. ? F is for face drooping. One side of the face is drooping or numb. When the person smiles, the smile is uneven. ? A is for arm weakness. One arm is weak or numb. When the person lifts both arms at the same time, one arm may drift downward. ? S is for speech difficulty. You may notice slurred speech or difficulty speaking. The person can't repeat a simple sentence correctly when asked. ? T is for time to dial 911. If someone shows any of these symptoms, even if they go away, call 911 right away. Make note of the time the symptoms first appeared. Last Reviewed Date: 2024 00:00:00 ? [id number] [employer]. All rights reserved. This information is not intended as a substitute for professional medical care. Always follow your healthcare professional's instructions. [facility]2025-02-01 07:50:20 The patient is Moderately Stable - Low risk of patient condition declining or worsening The patient's goals for the shift include JAVIER The clinical goals for the shift include sbp <140 Over the shift, the patient did not make progress toward the following goals. Barriers to progression include: Problem: Neurological Deficit Goal: Neurological status is stable or improving Outcome: Progressing Problem: Neurological Deficit Goal: Oxygenation goal greater than 94% Outcome: Progressing Problem: Neurological Deficit Goal: Maintain vital signs within ordered limits Outcome: Progressing Problem: Communication Impairment Goal: Ability to express needs and understand communication Outcome: Progressing Problem: Potential for Falls Goal: I will remain free of falls Outcome: [facility]ing [facility] The patient is Moderately Stable - Low risk of patient condition declining or worsening The patient's goals for the shift include JAVIER The clinical goals for the shift include sbp <140 [facility]42[facility]07 PCT notified RN of patient's blood sugar 44. RN assessed patient and took blood sugar and it was 40. RN notified MD about blood sugar and administered Dextrose. On reassessment patient's blood sugar is 234. [facility]2025-01-31 09:09:06 The patient is Moderately Unstable - Medium risk of patient condition declining or worsening The patient's goals for the shift include javier The clinical goals for the shift include SBP <180, HR <130 Over the shift, the patient did not make progress toward the following goals. Barriers to progression include: Problem: Neurological Deficit Goal: Neurological status is stable or improving Outcome: Ongoing Problem: Neurological Deficit Goal: Maintain vital signs within ordered limits Outcome: Ongoing Problem: Neurological Deficit Goal: Oxygenation goal greater than 94% Outcome: Ongoing Problem: Activity Intolerance/Impaired Mobility Goal: Maintains or returns to baseline bowel function Outcome: Ongoing Problem: Communication Impairment Goal: Ability to express needs and understand communication Outcome: Ongoing Problem: Potential for Falls Goal: I will remain free of falls Outcome: Ongoing [facility]2025-01-31 03:48:28 The patient is Moderately Stable - Low risk of patient condition declining or worsening The patient's goals for the shift include JAVIER The clinical goals for the shift include stable neuro/vitals Problem: Neurological Deficit Goal: Neurological status is stable or improving Outcome: Progressing Goal: Maintain vital signs within ordered limits Outcome: Progressing Goal: Oxygenation goal greater than 94% Outcome: Progressing Problem: Activity Intolerance/Impaired Mobility Goal: Mobility/activity is maintained at optimum level for patient Outcome: Progressing Goal: Maintains or returns to baseline bowel function Outcome: Progressing Flowsheets (Taken 06/25/20241999) Maintains or returns to baseline bowel function: Assess bowel function Encourage oral fluids to ensure adequate hydration Administer IV fluids as ordered to ensure adequate hydration Administer ordered medications as needed Encourage mobilization and activity Nutrition consult to assist patient with appropriate food choices Goal: Maintains or returns to baseline bladder function Outcome: Progressing Problem: Communication Impairment Goal: Ability to express needs and understand communication Outcome: Progressing Problem: Potential for Aspiration Goal: Non-ventilated patient's risk of aspiration is minimized Outcome: Progressing Goal: Ventilated patient's risk of aspiration is minimized Outcome: Progressing Problem: Potential for Falls Goal: I will remain free of falls Outcome: Progressing 0700 Report given to ALBERT Solares L ARTISTS' [facility]2025-01-30 11:46:57 The patient is Moderately Stable - Low risk of patient condition declining or worsening The patient's goals for the shift include javier The clinical goals for the shift include SBP <180, HR <130 [facility]2025-01-30 11:32:04 Images from the original note were not included. [id number] Understanding the Link Between High Blood Pressure and Stroke Each day that your blood pressure is too high, your chances of having a stroke are increased. Normal blood pressure is less than 120/80 millimeters of mercury (mmHg). This means systolic of less than 120 mmHg and diastolic of less than 80 mmHg. A stroke is a loss of brain function caused by a sudden lack of blood to part of the brain. Stroke can be caused by the damage that ongoing high blood pressure causes in your vessels. If the affected vessel stops supplying blood to the brain, a stroke happens. How high blood pressure damages blood vessels Vessels thicken When blood presses against a vessel wall with too much force, muscles in the wall lose their ability to stretch. This causes the wall to thicken, which narrows the vessel passage and reduces blood flow. Clots form When blood pressure is too high, it can damage blood vessel steiner and create scar tissue. Fat and cholesterol (plaque) collect in the damaged spots. Blood cells stick to the plaque, forming a mass called a clot. A clot can block blood flow in the vessel. Vessels break Sometimes, blood flows with enough force to weaken a vessel wall. If the vessel is small or damaged, the wall can break. When this happens, blood leaks into nearby tissue and kills cells. Other cells may because blood cannot reach them. Know the symptoms of stroke During a stroke, blood supply to the brain is suddenly cut off. But with fast medical help, a better recovery is more likely. Don?t wait. Call 911 if you have any of these: ? Sudden weakness or numbness on one side of the face or body, including a leg or an arm ? Sudden trouble seeing with one or both eyes ? Sudden double vision ? Sudden trouble talking, such as slurred speech ? Sudden severe headache ? Sudden problems using or understanding words ? Sudden confusion ? Sudden dizziness or loss of balance ? Seizures for the first time ? Any of these symptoms that happen and then go away Last Reviewed Date: 2022 00:00:00 ? [id number] [employer]. All rights reserved. This information is not intended as a substitute for professional medical care. Always follow your healthcare professional's instructions. [facility]2025-01-30 11:31:19 Images from the original note were not included. [id number] Atrial Fibrillation Atrial fibrillation is a condition in which the heart beats in an irregular pattern. It is the most common abnormal heart rhythm. It is caused by a problem in the heart's electrical pathways within the muscle of the upper chambers of the heart (atria). It can be a sign of heart disease or other health problems that affect the heart. Heart palpitations are a common symptom of atrial fibrillation. This is the feeling that your heart is fluttering, or beating fast, hard, or irregular. When the heart beats too fast, it doesn't pump blood very well. This can cause other symptoms, such as anxiety, fatigue, shortness of breath, chest pain, dizziness, or fainting. Atrial fibrillation may come and go on its own, which is known as paroxysmal atrial fibrillation. It can last from a few hours to a couple of days. Or it may become persistent, lasting for weeks or months at a time. It can even become lifelong (permanent). Some symptoms of atrial fibrillation are hard to notice. For instance, some people develop subtle fatigue. Others notice a reduced ability to exercise. Some people have no symptoms. Atrial fibrillation is more common in older adults. It may be caused by heart disease or other conditions in the body that affect the heart. They include: ? Coronary artery disease (atherosclerosis), sometimes called blocked arteries ? High blood pressure ? Disease of the heart valves ? Enlarged heart ? Heart failure Atrial fibrillation can also occur without heart disease because of: ? Overactive thyroid (hyperthyroid) ? Chronic lung disease (COPD, emphysema, or bronchitis) ? Heavy alcohol use ? Heart stimulants, such as cocaine, amphetamines, diet pills, certain decongestant cold medicines, caffeine, or nicotine ? Infection ? Blood clot in the lung (pulmonary embolus) ? Diabetes ? Chronic kidney disease ? Obesity ? Obstructive sleep apnea ? Extreme and continued athletic conditioning ? Certain genetic diseases Treating or removing these causes will help your treatment for atrial fibrillation. It will also make it less likely for it to come back. Atrial fibrillation can alternate back and forth with another abnormal rhythm called atrial flutter. Atrial flutter is a more regular heart rhythm. It is also linked to an increased risk for stroke. Correct treatment of these arrhythmias can lower your risk for stroke. Home care Follow these guidelines when caring for yourself at home: ? Go back to your usual activities as soon as you are feeling back to normal. ? If you smoke, stop smoking. Contact your healthcare provider or a local stop-smoking program for help. ? Don't use stimulants like alcohol, cocaine, amphetamines, diet pills, certain decongestant cold medicines, caffeine, or nicotine. ? If your provider prescribed medicine to stop atrial fibrillation from coming back, take it exactly as directed. Some medicines must be taken every day, not just when you have symptoms. This will help them work as they should. ? If you were prescribed a blood-thinning medicine, take it exactly as prescribed. One of these medicines, called warfarin, needs your blood to be tested regularly as advised by your healthcare provider. This will make sure you are getting the dose that is right for you. It also lowers your risk for side effects. You may have been prescribed other blood-thinning medicines that don't need regular testing. Follow-up care Follow up with your healthcare provider as advised. When to get medical care Call your healthcare provider if any of these occur: ? Swelling in the legs that gets worse ? Unexpected weight gain ? Pain, redness, or swelling in 1 leg Call 911 Calling 911 is the fastest and safest way to get the emergency department. The paramedics can also start treatment on the way to the hospital, if needed. Call 911 or get medical help right away if any of these occur: ? Weakness of an arm, leg, one side of the face ? Chest pain ? Shortness of breath, or feeling that you can't get enough air ? Feeling lightheaded, faint, or dizzy ? Your heartbeat is very fast, slow, or irregular compared with your regular heartbeat ? Uncontrolled bleeding ? Trouble with speech or vision ? Extreme drowsiness, confusion, dizziness, or fainting Last Reviewed Date: 2022 00:00:00 ? [id number] [employer]. All rights reserved. This information is not intended as a substitute for professional medical care. Always follow your healthcare professional's instructions. [facility]2025-01-30 03:29:22 The patient is Moderately Stable - Low risk of patient condition declining or worsening The patient's goals for the shift include JAVIER The clinical goals for the shift include stable neuro/vitals Problem: Neurological Deficit Goal: Neurological status is stable or improving Outcome: Progressing Goal: Maintain vital signs within ordered limits Outcome: Progressing Goal: Oxygenation goal greater than 94% Outcome: Progressing Problem: Activity Intolerance/Impaired Mobility Goal: Mobility/activity is maintained at optimum level for patient Outcome: Progressing Goal: Maintains or returns to baseline bowel function Outcome: Progressing Goal: Maintains or returns to baseline bladder function Outcome: Progressing Problem: Communication Impairment Goal: Ability to express needs and understand communication Outcome: Progressing Problem: Potential for Aspiration Goal: Non-ventilated patient's risk of aspiration is minimized Outcome: Progressing Goal: Ventilated patient's risk of aspiration is minimized Outcome: Progressing Problem: Knowledge Deficit Goal: Patient/family/caregiver demonstrates understanding of disease process, treatment plan, medications, and discharge instructions Outcome: Progressing Problem: Potential for Falls Goal: I will remain free of falls Outcome: Progressing 2100- called ELIDA Alvarez re: [id number], pt due for Lispro 16, on bolus feed no feed running at the moment, if PRN Insulin will be added. Give 16units due 0036- called ELIDA Richardson re:[id number], if PRN 6units Lispro can be given as there is no feed running. Ok to give L ARTISTS' [facility]2025-01-29 16:21:29 [place] [id number] 16:21:29 [place] [id number] 16:21:29 Diagnosis Dysphagia, unspecified type Helicobacter pylori infection Helicobacter [facility]H. [facility] 16:21:29 [place] [id number] 16:19:15 ----- Message from Vik Wayne DO sent at 06/24/2024 1:29 PM [facility] ----- Regarding: Clinic follow up Hi Claire, Can you set up non-urgent clinic follow up for this patient for intestinal metaplasia and possible H pylori? Maybe 8-[address] Ely. Martha Chery [facility]2025-01-29 10:42:04 The patient is Moderately Unstable - Medium risk of patient condition declining or worsening The patient's goals for the shift include javier The clinical goals for the shift include SBP <180, HR <130 [place] [id number] 03:09:45 Problem: Neurological Deficit Goal: Neurological status is stable or improving Outcome: Not Progressing Problem: Activity Intolerance/Impaired Mobility Goal: Mobility/activity is maintained at optimum level for patient Outcome: Not Progressing Problem: Communication Impairment Goal: Ability to express needs and understand communication Outcome: Not Progressing Problem: Neurological Deficit Goal: Oxygenation goal greater than 94% Outcome: Met Problem: Safety - Medical Restraint Goal: Remains free of injury from restraints (Restraint for Interference with Veneer Cutter) Outcome: Met Goal: Free from restraint(s) (Restraint for Interference with Veneer Cutter) Outcome: Met Problem: Potential for Aspiration Goal: Ventilated patient's risk of aspiration is minimized Outcome: Deferred Problem: Thrombolytic Therapy Goal: Monitor for bleeding for 48 hours post tenectaplase/interventional procedures Outcome: Deferred Problem: Neurological Deficit Goal: Maintain vital signs within ordered limits Outcome: Ongoing Problem: Activity Intolerance/Impaired Mobility Goal: Maintains or returns to baseline bowel function Outcome: Ongoing Goal: Maintains or returns to baseline bladder function Outcome: Ongoing Problem: Potential for Aspiration Goal: Non-ventilated patient's risk of aspiration is minimized Outcome: Ongoing Problem: Infection Goal: Signs and symptoms of infections are decreased or avoided Outcome: Ongoing Goal: Oral health is maintained or improved Outcome: Ongoing Problem: Nutrition Goal: Nutritional status is improving Outcome: Ongoing Problem: Thrombolytic Therapy Goal: Monitor for angioedema Outcome: Ongoing Problem: Bleeding Precautions Goal: Excessive bleeding will be minimized Outcome: Ongoing Problem: Knowledge Deficit Goal: Patient/family/caregiver demonstrates understanding of disease process, treatment plan, medications, and discharge instructions Outcome: Ongoing Problem: Potential for Falls Goal: I will remain free of falls Outcome: [facility] 03:04:54 Problem: Neurological Deficit Goal: Neurological status is stable or improving Outcome: Not Progressing Problem: Neurological Deficit Goal: Oxygenation goal greater than 94% Outcome: Met Problem: Neurological Deficit Goal: Maintain vital signs within ordered limits Outcome: Ongoing Problem: Activity Intolerance/Impaired Mobility Goal: Mobility/activity is maintained at optimum level for patient Outcome: Ongoing Goal: Maintains or returns to baseline bowel function Outcome: Ongoing Goal: Maintains or returns to baseline bladder function Outcome: Ongoing Problem: Communication Impairment Goal: Ability to express needs and understand communication Outcome: Ongoing Problem: Potential for Aspiration Goal: Non-ventilated patient's risk of aspiration is minimized Outcome: Ongoing Goal: Ventilated patient's risk of aspiration is minimized Outcome: Ongoing Problem: Infection Goal: Signs and symptoms of infections are decreased or avoided Outcome: Ongoing Goal: Oral health is maintained or improved Outcome: Ongoing Problem: Nutrition Goal: Nutritional status is improving Outcome: Ongoing Problem: Thrombolytic Therapy Goal: Monitor for angioedema Outcome: Ongoing Goal: Monitor for bleeding for 48 hours post tenectaplase/interventional procedures Outcome: Ongoing Problem: Bleeding Precautions Goal: Excessive bleeding will be minimized Outcome: Ongoing Problem: Safety - Medical Restraint Goal: Remains free of injury from restraints (Restraint for Interference with Veneer Cutter) Outcome: Ongoing Goal: Free from restraint(s) (Restraint for Interference with Veneer Cutter) Outcome: Ongoing Problem: Knowledge Deficit Goal: Patient/family/caregiver demonstrates understanding of disease process, treatment plan, medications, and discharge instructions Outcome: Ongoing Problem: Potential for Falls Goal: I will remain free of falls Outcome: Ongoing [place] 42091-01-27 06:21:39 Problem: Neurological Deficit Goal: Neurological status is stable or improving Outcome: Progressing Goal: Maintain vital signs within ordered limits Outcome: Progressing Goal: Oxygenation goal greater than 94% Outcome: Progressing [place] [id number] 23:37:00 Tried calling patient's son using [phone] to inform him about his mother moving to stroke 6. No answer. Left a voicemail about where is mother was moved to. [place] [id number] 23:20:00 Brought the patient to stroke 6 at 2320. Patient left the unit with bilateral hearing aids in. No s/s of distress. [place] [id number] 23:18:00 Called stroke and gave report to Blessing PRICE at 2318. Answered all questions. [place] 42091-01-26 22:50:00 Contacted Andrew Trivedi MD about the patient's fluctuating HR. Said that the patient's Hr was spiking up to the 130's to 140's then going back down to the 110's. Said the patient did have PRN metoprolol ordered but we are not able to push that on the floor. Physician ordered an EKG. EKG results showed a fib with RVR. Physician then ordered to transfer the patient to sto and to give a 500ml bolus of normal saline. [place] [id number] 08:00:00 The patient is Unstable - High likelihood or risk of patient condition declining or worsening The patient's goals for the shift include BP<140 The clinical goals for the shift include no falls [place] [id number] 03:58:05 The patient is Unstable - High likelihood or risk of patient condition declining or worsening The patient's goals for the shift include safety The clinical goals for the shift include safe stay Over the shift, the patient did not make progress toward the following goals. Barriers to progression include pt neurological status. Recommendations to address these barriers include pt education and monitoring. [place] [id number] 20:44:46 The patient is Unstable - High likelihood or risk of patient condition declining or worsening The patient's goals for the shift include safety The clinical goals for the shift include safe stay Over the shift, the patient did not make progress toward the following goals. Barriers to progression include pt neurological status. Recommendations to address these barriers include pt education and monitoring. [place] 42091-01-25 15:50:12 Patient's family brought hearing aid, currently on patient. There are two buttons on the back of the ear piece to adjust the volume if needed. [place] [id number] 06:46:05 The patient is Unstable - High likelihood or risk of patient condition declining or worsening The patient's goals for the shift include safety The clinical goals for the shift include safe stay Over the shift, the patient did not make progress toward the following goals. Barriers to progression include pt neurological status. Recommendations to address these barriers include pt education and monitoring. Problem: Safety - Medical Restraint Goal: Remains free of injury from restraints (Restraint for Interference with Veneer Cutter) Outcome: Not Progressing Goal: Free from restraint(s) (Restraint for Interference with Veneer Cutter) Outcome: Not Progressing [facility]2025-01-24 20:43:37 The patient is Unstable - High likelihood or risk of patient condition declining or worsening The patient's goals for the shift include safety The clinical goals for the shift include safe stay Over the shift, the patient did not make progress toward the following goals. Barriers to progression include pt neuro status. Recommendations to address these barriers include pt monitoring and education. [facility]2025-01-23 18:20:00 Pt is back from GI Lab. [facility]2025-01-23 16:10:00 Pt off unit for PEG placement. [facility]2025-01-23 14:34:17 [facility] Appointment Information VERY IMPORTANT INSTRUCTIONS, PLEASE READ !!! Appointment date: Saturday07/24/2024 @ [address] [place], telemedicine Appointment given to family at bedside. Call Stroke Clinic @ [phone] if you need to cancel or reschedule appointment. You have been scheduled for a (in-person/telemedicine visit for your stroke follow-up appointment. The address for in-person visits is listed below. For a telemedicine visit, you will need a smart device, a laptop with a camera, or a desktop with a camera. You will need a working email and phone number/alternate number to complete this visit. Before your visit, please sign-up with [employer]. You can sign-up using this link: [email or web address] and the activation code sent to your email or phone number. Please sign up at least 72 hours before your appointment. If you did not receive an activation code, please call [phone]. Through [employer], you will complete your information, view your medical records, send a message to your provider, and receive clinic forms in your [employer] inbox necessary to complete your visit. Please, complete the forms in their entirety. If you do not receive a reminder for your appointment within 48 hours of your scheduled appointment date, please call the office at [phone] to ensure that your information is correct. If your phone number or email changes before the appointment date, call the same number to update your information. If you have a telemedicine appointment, just click on the link sent to your phone or email to connect to the visit 15 minutes before your scheduled time. Please plan to arrive 15 minutes early for an in-person appointment. We look forward to seeing you soon. Clinic Address: [address] [place] [address], [address]. [place] [address]. . . Clinic parking ([address] [facility]) [email or web address] L ARTISTS' L ARTISTS' [facility]2025-01-23 08:00:00 The patient is Unstable - High likelihood or risk of patient condition declining or worsening The patient's goals for the shift include no pain The clinical goals for the shift include PEG placement [facility]2025-01-23 03:48:01 The patient is Moderately Stable - Low risk of patient condition declining or worsening The patient's goals for the shift include unable to assess The clinical goals for the shift include BP less than 180 and restraint removal Over the shift, the patient did make progress toward the following goals. [facility]2025-01-21 18:10:00 Pt transferred from Stroke unit accompanied by nurse, with no personal belongings except, insulin vials, EPC cream, and repositioning equipment [place] [id number] 17:30:00 RN called report to RN at 1730, pt left unit at 1750 with no belongings except, insulin vials, EPC cream, and repositioning equipment [facility]2025-01-21 15:30:01 The patient is Moderately Stable - Low risk of patient condition declining or worsening The patient's goals for the shift include The clinical goals for the shift include Over the shift, the patient did not make progress toward the following goals. Barriers to progression include transfer to . Recommendations to address these barriers include moving to . [facility]2025-01-20 23:03:07 The patient is Moderately Stable - Low risk of patient condition declining or worsening Problem: Neurological Deficit Goal: Neurological status is stable or improving Outcome: Progressing Goal: Maintain vital signs within ordered limits Outcome: Progressing Goal: Oxygenation goal greater than 94% Outcome: Progressing Problem: Activity Intolerance/Impaired Mobility Goal: Mobility/activity is maintained at optimum level for patient Outcome: Progressing Goal: Maintains or returns to baseline bowel function Outcome: Progressing Goal: Maintains or returns to baseline bladder function Outcome: Progressing Problem: Communication Impairment Goal: Ability to express needs and understand communication Outcome: Progressing Problem: Safety - Medical Restraint Goal: Remains free of injury from restraints (Restraint for Interference with Veneer Cutter) Outcome: Progressing Goal: Free from restraint(s) (Restraint for Interference with Veneer Cutter) Outcome: Progressing [facility]2025-01-20 15:57:58 The patient is Moderately Stable - Low risk of patient condition declining or worsening The patient's goals for the shift include The clinical goals for the shift include Over the shift, the patient did not make progress toward the following goals. Barriers to progression include insulin control. Recommendations to address these barriers include controlling blood sugar. [facility]2025-01-20 03:52:42 The patient is Moderately Unstable - Medium risk of patient condition declining or worsening Problem: Neurological Deficit Goal: Neurological status is stable or improving Outcome: Progressing Goal: Maintain vital signs within ordered limits Outcome: Progressing Goal: Oxygenation goal greater than 94% Outcome: Progressing Problem: Activity Intolerance/Impaired Mobility Goal: Mobility/activity is maintained at optimum level for patient Outcome: Progressing Goal: Maintains or returns to baseline bladder function Outcome: Progressing Problem: Activity Intolerance/Impaired Mobility Goal: Maintains or returns to baseline bowel function Outcome: Adequate for Discharge [facility]2025-01-19 11:45:36 Problem: Neurological Deficit Goal: Neurological status is stable or improving 06/14/2024 1146 by Lamine Kruger RN Outcome: Progressing 06/14/2024 1146 by Lamine Kruger RN Outcome: Progressing Goal: Maintain vital signs within ordered limits 06/14/2024 1146 by Lamine Kruger RN Outcome: Progressing 06/14/2024 1146 by Lamine Kruger RN Outcome: Progressing Goal: Oxygenation goal greater than 94% 06/14/2024 1146 by Lamine Kruger RN Outcome: Progressing 06/14/2024 1146 by Lamine Kruger RN Outcome: Progressing Problem: Activity Intolerance/Impaired Mobility Goal: Mobility/activity is maintained at optimum level for patient 06/14/2024 1146 by Lamine Kruger RN Outcome: Progressing 06/14/2024 1146 by Lamine Kruger RN Outcome: Progressing Goal: Maintains or returns to baseline bowel function 06/14/2024 1146 by Lamine Kruger RN Outcome: Progressing 06/14/2024 1146 by Lamine Kruger RN Outcome: Progressing Goal: Maintains or returns to baseline bladder function 06/14/2024 1146 by Lamine Kruger RN Outcome: Progressing 06/14/2024 1146 by Lamine Kruger RN Outcome: Progressing Problem: Communication Impairment Goal: Ability to express needs and understand communication 06/14/2024 1146 by Lamine Kruger RN Outcome: Progressing 06/14/2024 1146 by Lamine Kruger RN Outcome: Progressing Problem: Potential for Aspiration Goal: Non-ventilated patient's risk of aspiration is minimized 06/14/2024 1146 by Lamine Kruger RN Outcome: Progressing 06/14/2024 1146 by Lamine Kruger RN Outcome: Progressing Goal: Ventilated patient's risk of aspiration is minimized 06/14/2024 1146 by Lamine Kruger RN Outcome: Progressing 06/14/2024 1146 by Lamine Kruger RN Outcome: Progressing Problem: Infection Goal: Signs and symptoms of infections are decreased or avoided 06/14/2024 1146 by Lamine Kruger RN Outcome: Progressing 06/14/2024 1146 by Lamine Kruger RN Outcome: Progressing Goal: Oral health is maintained or improved 06/14/2024 1146 by Lamine Kruger RN Outcome: Progressing 06/14/2024 1146 by Lamine Kruger RN Outcome: Progressing Problem: Nutrition Goal: Nutritional status is improving 06/14/2024 1146 by Lamine Kruger RN Outcome: Progressing 06/14/2024 1146 by Lamine Kruger RN Outcome: Progressing Problem: Thrombolytic Therapy Goal: Monitor for angioedema 06/14/2024 1146 by Lamine Kruger RN Outcome: Progressing 06/14/2024 1146 by Lamine Kruger RN Outcome: Progressing Goal: Monitor for bleeding for 48 hours post tenectaplase/interventional procedures 06/14/2024 1146 by Lamine Kruger RN Outcome: Progressing 06/14/2024 1146 by Lamine Kruger RN Outcome: Progressing Problem: Bleeding Precautions Goal: Excessive bleeding will be minimized 06/14/2024 1146 by Lamine Kruger RN Outcome: Progressing 06/14/2024 1146 by Lamine Kruger RN Outcome: Progressing Problem: Safety - Medical Restraint Goal: Remains free of injury from restraints (Restraint for Interference with Veneer Cutter) 06/14/2024 1146 by Lamine Kruger RN Outcome: Progressing 06/14/2024 1146 by Lamine Kruger RN Outcome: Progressing Goal: Free from restraint(s) (Restraint for Interference with Veneer Cutter) 06/14/2024 1146 by Lamine Kruger RN Outcome: Progressing 06/14/2024 1146 by Lamine Kruger RN Outcome: Progressing The patient is Moderately Stable - Low risk of patient condition declining or worsening The patient's goals for the shift include pt unable to say goals The clinical goals for the shift include safety, airway protection, no neuro change [facility] [id number] 07:15:04 Problem: Neurological Deficit Goal: Neurological status is stable or improving Outcome: Ongoing Goal: Maintain vital signs within ordered limits Outcome: Ongoing Goal: Oxygenation goal greater than 94% Outcome: Ongoing Problem: Activity Intolerance/Impaired Mobility Goal: Mobility/activity is maintained at optimum level for patient Outcome: Ongoing Goal: Maintains or returns to baseline bowel function Outcome: Ongoing Goal: Maintains or returns to baseline bladder function Outcome: Ongoing Problem: Communication Impairment Goal: Ability to express needs and understand communication Outcome: Ongoing Problem: Potential for Aspiration Goal: Non-ventilated patient's risk of aspiration is minimized Outcome: Ongoing Goal: Ventilated patient's risk of aspiration is minimized Outcome: Ongoing Problem: Infection Goal: Signs and symptoms of infections are decreased or avoided Outcome: Ongoing Goal: Oral health is maintained or improved Outcome: Ongoing Problem: Nutrition Goal: Nutritional status is improving Outcome: Ongoing [facility]2025-01-17 15:59:40 While getting pt ready to be transferred to stroke unit, RN noticed pt breathing had changed and patient was no longer following commands or verbalizing anything even after painful stimuli [place]. [place] [phone] @[phone] to let team know of patient's neuro change. Resident, fellow, and attending came to bedside to assess patient. MD put in order for patient to get a stat CT head done for neuro change. RN called CT to let them know about CT and the need to push down at 1456. [facility]2025-01-17 07:08:11 Problem: Neurological Deficit Goal: Neurological status is stable or improving Outcome: Ongoing Goal: Maintain vital signs within ordered limits Outcome: Ongoing Goal: Oxygenation goal greater than 94% Outcome: Ongoing Problem: Activity Intolerance/Impaired Mobility Goal: Mobility/activity is maintained at optimum level for patient Outcome: Ongoing Goal: Maintains or returns to baseline bowel function Outcome: Ongoing Goal: Maintains or returns to baseline bladder function Outcome: Ongoing Problem: Communication Impairment Goal: Ability to express needs and understand communication Outcome: Ongoing Problem: Potential for Aspiration Goal: Non-ventilated patient's risk of aspiration is minimized Outcome: Ongoing Goal: Ventilated patient's risk of aspiration is minimized Outcome: Ongoing Problem: Infection Goal: Signs and symptoms of infections are decreased or avoided Outcome: Ongoing Goal: Oral health is maintained or improved Outcome: Ongoing [facility]2025-01-16 19:45:42 Problem: Neurological Deficit Goal: Neurological status is stable or improving Outcome: Ongoing Goal: Maintain vital signs within ordered limits Outcome: Ongoing Goal: Oxygenation goal greater than 94% Outcome: Ongoing Problem: Activity Intolerance/Impaired Mobility Goal: Mobility/activity is maintained at optimum level for patient Outcome: Ongoing Problem: Safety - Medical Restraint Goal: Remains free of injury from restraints (Restraint for Interference with Veneer Cutter) Outcome: Ongoing Goal: Free from restraint(s) (Restraint for Interference with Veneer Cutter) Outcome: Ongoing [facility] [id number] 18:11:40 = Problem: Neurological Deficit Goal: Neurological status is stable or improving Outcome: Ongoing Problem: Activity Intolerance/Impaired Mobility Goal: Mobility/activity is maintained at optimum level for patient Outcome: Ongoing Goal: Maintains or returns to baseline bowel function Outcome: Ongoing Problem: Communication Impairment Goal: Ability to express needs and understand communication Outcome: Ongoing Problem: Potential for Aspiration Goal: Ventilated patient's risk of aspiration is minimized Outcome: [facility] 02:52:25 Problem: Neurological Deficit Goal: Neurological status is stable or improving Outcome: Ongoing Goal: Maintain vital signs within ordered limits Outcome: Ongoing Problem: Activity Intolerance/Impaired Mobility Goal: Mobility/activity is maintained at optimum level for patient Outcome: Ongoing [facility] Vikas
[2024-07-23] MEDS ORDERED: CEFEPIME 1 GM/VIAL ONE (00:17)
[2024-07-23] MEDS ORDERED: NA CHLORIDE 0.9% 250 ML ONE (00:17)
[2024-07-23] MEDS ORDERED: VANCOMYCIN 1 GM/VIAL ONE (00:17)
[2024-07-23] MEDS ORDERED: NA CHLORIDE 0.9% 2,000 ML ONE (00:17)
[2024-07-23] MEDS ORDERED: NA CHLORIDE 0.9% 100 ML ONE (00:17)
[2024-07-23 00:34] LABS: Specific Gravity 1.011 (1.005-1.030); Urine Bilirubin NEGATIVE (Negative); Urine Blood Negative (Negative); Urine Clarity Clear (Clear); Urine Color Light-Yellow (Yellow); Urine Glucose 4+ (Over) (Negative); Urine Ketones NEGATIVE (Negative); Urine Microscopic Reflex YN NO UMIC; Urine Nitrite NEGATIVE (Negative); Urine Protein NEGATIVE (Negative); Urine Urobilinogen Normal (Normal)
[2024-07-23 00:37] LABS: Absolute Basophils 0.1 K/uL (0-0.5); Absolute Eosinophils 0.1 K/uL (0-0.5); Absolute Lymphocytes (CBC) 1.3 K/uL (0.7-4.9); Absolute Monocytes 0.5 K/uL (0.1-1.3); Absolute Neutrophil 9.9 K/uL (1.8-8.0); Basophils % 0.4 % (0-1.3); Eosinophils % 0.6 % (0-4.4); Hematocrit 36.7 % (36.0-45.0); Hemoglobin 12.4 g/dL (12.0-15.0); Lymphocytes % 11.2 % (15.3-44.8); MCHC 33.6 g/dL (32.0-36.0); MCV 92.2 fL (80-100); MPV 9.4 fL (7.6-11.3); Neutrophils % 83.8 % (41.7-73.7); Nucleated Red Blood Cells % 0.1 % (0-0); Platelets 517 thou/uL (152-406); RBC Red Blood Cell Count 3.99 M/uL (3.86-4.86); Red Cell Distribution Width 14.2 % (12.1-15.2)
[2024-07-23 00:39] LABS: PT Prothrombin Time 14.2 SECONDS (10.0-13.0); PTT, Activated Partial Thromb 35.2 SECONDS (24.3-36.9); Protime INR 1.26
[2024-07-23 00:56] LABS: Albumin 2.5 g/dL (3.4-5.0); Albumin/Globulin Ratio 0.6 (1.1-1.8); Anion Gap 12.2 mEq/L (5.0-15.0); Bilirubin Total 0.6 mg/dL (0.2-1.0); Globulin 4.5 g/dL (2.3-3.5); Potassium 4.2 mEq/L (3.5-5.1); Thyroid Stimulating Hormone 2.21 uIU/mL (0.358-3.740); Troponin High Sensitivity 10.8 pg/mL (<58.9)
--- NOTE | 2024-07-23 01:06 | RAD REPORT ---
CLINICAL HISTORY: AMS. COMPARISON: CT Head 06/10/2024. 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 FINDINGS: There are scattered hypodensities within the periphery of the right hemispheric abnormalities which c ould represent small areas of hemorrhage. There are areas extensive early encephalomalacia throughout the right frontal, parietal and temporal lobes. There is encephalomalacia within the left occipital lobe. There is no hydrocephalus. There is no significant volume loss for age. The calvarium is intact. Orbits and globes are unremarkable. The paranasal sinuses are clear. Mastoid air cells are clear. IMPRESSION: Extensive areas of probable early encephalomalacia throughout the right hemisphere with possible smal l areas of hemorrhage. Additional left occipital encephalomalacia. Recommend MRI. Electronically signed by: Kiel France MD 07/23/2024 01:02 AM INFO PRINT PRESS OPERATOR Due to temporary technical issues with the PACS/[employer] reporting system, reports are being leland d by the in-house radiologist without review as a courtesy to ensure prompt reporting the interpreting radiologist is fully responsible for the content of the report. Transcribed Date/Time: 07/23/2024 1:06 AM
[2024-07-23] MEDS ORDERED: INSULIN REGULAR (HUMAN) 100 UNIT/ML ONE (01:26)
--- NOTE | 2024-07-23 01:27 | RAD REPORT ---
CLINICAL HISTORY: Congestion. COMPARISON: CT Abdomen pelvis 01/25/2024. TECHNIQUE: CT CHEST ABDOMEN PELVIS WITHOUT IV CONTRAST on 07/22/2024 11:28 PM BALANCE ASSEMBLER This exam was performed according to our departmental dose-optimization program, which includes autom ated exposure control, adjustment of the mA and/or kV according to patient size and/or use of iterative reconstruction technique. FINDINGS: Chest: The heart is borderline in size. There is no pericardial effusion. There are calcified right h ilar and mediastinal lymph nodes. There is no pleural effusion, pleural thickening or pneumothorax. Central airways are patent. There i s a calcified right lower lobe granuloma. Abdomen: The liver is normal in appearance. There is no biliary dilatation. Gallbladder is not clearl y seen. Gastrostomy is present. The pancreas and spleen are normal in appearance. The adrenal glands and kidneys are unremarkable. Abdominal aorta is densely calcified without aneurysm. There is no free air. There is no retroperiton eal adenopathy. Pelvis: There is no bowel obstruction. Urinary bladder is unremarkable. There is no free fluid. Uteru s is normal in size. Appendix is not clearly seen. Skeleton: There are no acute osseous findings. No suspicious bony lesions. IMPRESSION: No definite acute process. Electronically signed by: Kiel France MD 07/23/2024 01:19 AM [facility] Due to temporary technical issues with the PACS/[employer] reporting system, reports are being leland d by the in-house radiologist without review as a courtesy to ensure prompt reporting the interpreting radiologist is fully responsible for the content of the report. Transcribed Date/Time: 07/23/2024 1:27 AM
[2024-07-23] MEDS ORDERED: ONDANSETRON 4 MG/2 ML VIAL ONE (02:03)
[2024-07-23] MEDS ORDERED: MORPHINE 2 MG/ML SYR ONE (02:03)
--- NOTE | 2024-07-23 02:38 | EDPHYS ---
Physician Documentation [facility] Name: Isabel Henry Age: 78 yrs Sex: Female : 1945 Arrival Date: 07/22/2024 Time: 23:17 Bed 4 Private MD: ED Physician Kendrick Godinez HPI: 07/22 23:26 This 78 yrs old Female presents to ER via Unassigned with complaints of Chest sp4 Pain. 07/23 02:21 Patient is 78-year-old female with history of diabetes mellitus type 2, hypothyroidism, sp4 myocardial infarction pneumonia. Patient reportedly sustained debilitating ischemic stroke in May 2024 and was managed at [facility], . EXAMINATION: CTA HEAD 06/10/2024 CLINICAL INDICATION: Female, 78 years old. STROKE ALERT COMPARISON: No prior exam. FINDINGS: ICA: The petrous, cavernous, and supraclinoid segments of the bilateral internal carotid arteries are normal. The ophthalmic artery origins are visualized and normal. The posterior communicating arteries are patent. 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 There is a paucity of vessels in the right MCA territory. The left middle cerebral artery is patent. FORM MAKER PLASTER: Posterior cerebral arteries are normal bilaterally. 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 Left vertebral artery is patent and codominant. The basilar artery is patent. 3D images confirm these findings. 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 Paucity of vessels in the right middle cerebral artery territory. . CT report 06/10/2024 . Specifically on 06/10/2024 patient diagnosed with right MCA occlusion and left-sided hemiparesis and was transferred to [facility] for further management. CT report listed below.. Historical: - Allergies: 00:07 Depo-Provera; bm8 00:07 Vicodin; bm8 - Home Meds: 00:07 atorvastatin 40 mg Oral tablet daily [Active]; Diflucan 150 mg Oral tablet every week bm8 [Active]; fenofibrate 160 mg Oral tablet daily [Active]; glimepiride 2 mg Oral tablet every morning [Active]; glipizide 10 mg Oral Tablet daily [Active]; hydrochlorothiazide 25 mg Oral tablet every morning [Active]; levothyroxine 100 mcg tablet daily [Active]; lisinopril 40 mg Oral tablet daily [Active]; metformin 500 mg Oral tablet 2 times per day [Active]; Metoprolol Succinate ER 200 mg daily [Active]; omeprazole 20 mg Oral capsule daily [Active]; Ozempic 0.25 mg or 0.5 mg (2 mg/3 mL) subcutaneous Pen Injector every week [Active]; - PMHx: 00:07 diabetes mellitus; Hypothyroidism; Myocardial infarction; Pneumonia; bm8 - PSHx: 00:07 triple bypass; bm8 - Immunization history:: Adult Immunizations up to date. - Infectious Disease History:: Denies. - Social history:: Smoking status: Patient denies any tobacco usage or history of. - Family history:: not pertinent. ROS: 02:39 Constitutional: Negative for fever, chills, and weight loss, elevated blood sugar, sp4 left arm pain , confusion 02:39 All other systems are negative, Exam: 02:26 ECG was reviewed by the Attending Physician. EKG 2340 normal sinus rhythm left axis sp4 deviation otherwise normal. EKG time 2340. 02:39 Constitutional: Frail elderly female, left-sided hemiparesis pleasantly confused, sp4 nonambulatory, signs of moderate physical deconditioning and muscular atrophy. Left-sided hemiparesis reported to be old. 02:46 Head/Face: Normocephalic, atraumatic. Eyes: Pupils equal round and reactive to light, sp4 extra-ocular motions intact. Lids and lashes normal. Conjunctiva and sclera are not injected. Cornea within normal limits. Periorbital areas with no swelling, redness, or edema. ENT: Nares patent. No nasal discharge, no septal abnormalities noted. Tympanic membranes are normal and external auditory canals are clear. Oropharynx with no redness, swelling, or masses, exudates, or evidence of obstruction, uvula midline. Mucous membranes moist. Neck: Trachea midline, no thyromegaly or masses palpated, and no cervical lymphadenopathy. Supple, full range of motion without nuchal rigidity, or vertebral point tenderness. Chest/axilla: Normal chest wall appearance and motion. Nontender with no deformity. No lesions are appreciated. Cardiovascular: Regular rate and rhythm with a normal S1 and S2. No gallops, murmurs, or rubs. Normal PMI, no JVD. No pulse deficits. Respiratory: Lungs have equal breath sounds bilaterally, clear to auscultation and percussion. No rales, rhonchi or wheezes noted. No increased work of breathing, no retractions or nasal flaring. Abdomen/GI: Soft, with normal bowel sounds. No distension or tympany. No guarding or rebound. No evidence of tenderness throughout. There is left upper quadrant abdominal gastrostomy Back: No spinal tenderness. No costovertebral tenderness. There is sacral decubitus ulceration stage II-III Female : Normal external genitalia. Patient is incontinent of bowel and bladder Skin: Warm, dry with normal turgor. Normal color with no rashes, no lesions, and no evidence of cellulitis. Patient has sacral decubitus ulcer stage III-IV MS/ Extremity: Pulses equal, no cyanosis. Neurovascular intact. Full, normal range of motion. Neuro: Awake and alert, GCS 14, oriented to person, there is chronic appearing left-sided hemiparesis with underlying muscular atrophy. Also contractures on the left side. No new neurologic deficits reported. Vital Signs: 07/22 23:18 BP 147 / 58; Pulse 95; Resp 18; Temp 98.8(A); Pulse Ox 99% ; Weight 57 kg; Height 5 ft. bm8 3 in. ; Pain 6/10; 07/23 00:59 BP 134 / 46; Pulse 94; Resp 14; Temp 98.8; Pulse Ox 99% ; Pain 4/10; bm8 02:10 BP 146 / 52; Pulse 90; Resp 18; Temp 98.7; Pulse Ox 98% ; Pain 4/10; bm8 04:53 BP 142 / 50; Pulse 102; Resp 18; Temp 98.7; Pulse Ox 98% ; Pain 0/10; bm8 07/22 23:18 Body Mass Index 22.26 (57.00 kg, 160.02 cm) bm8 07/22 23:18 Pain Scale: Adult 8 07/23 00:59 Pain Scale: Adult bm8 02:10 Pain Scale: Adult bm8 04:53 Pain Scale: Adult bm8 Eunice Coma Score: 00:59 Eye Response: spontaneous(4). Motor Response: obeys commands(6). Verbal Response: bm8 oriented(5). Total: 15. 02:10 Eye Response: to voice(3). Motor Response: obeys commands(6). Verbal Response: bm8 oriented(5). Total: 14. 02:26 Eye Response: spontaneous(4). Motor Response: obeys commands(6). Verbal Response: sp4 confused(4). Total: 14. 04:48 Eye Response: to voice(3). Motor Response: obeys commands(6). Verbal Response: bm8 confused(4). Total: 13. MDM: 07/22 23:29 Medical Screening Exam initiated sp4 07/23 02:04 ED course: FINDINGS: Chest: The heart is borderline in size. There is no pericardial sp4 effusion. There are calcified right hilar and mediastinal lymph nodes. There is no pleural effusion, pleural thickening or pneumothorax. Central airways are patent. There is a calcified right lower lobe granuloma. Abdomen: The liver is normal in appearance. There is no biliary dilatation. Gallbladder is not clearly seen. Gastrostomy is present. The pancreas and spleen are normal in appearance. The adrenal glands and kidneys are unremarkable. Abdominal aorta is densely calcified without aneurysm. There is no free air. There is no retroperitoneal adenopathy. Pelvis: There is no bowel obstruction. Urinary bladder is unremarkable. There is no free fluid. Uterus is normal in size. Appendix is not clearly seen. Skeleton: There are no acute osseous findings. No suspicious bony lesions. IMPRESSION: No definite acute process. Electronically signed by: Kiel France MD. ED course: COMPARISON: CT Head 06/10/2024. TECHNIQUE: CT HEAD WITHOUT IV CONTRAST on 07/22/2024 11:28 PM AS400 ADMINISTRATOR This exam was performed according to our departmental dose-optimization program, which includes automated exposure control, adjustment of the mA and/or kV according to patient size and/or use of iterative reconstruction technique. FINDINGS: There are scattered hypodensities within the periphery of the right hemispheric abnormalities which could represent small areas of hemorrhage. There are areas extensive early encephalomalacia throughout the right frontal, parietal and temporal lobes. There is encephalomalacia within the left occipital lobe. There is no hydrocephalus. There is no significant volume loss for age. The calvarium is intact. Orbits and globes are unremarkable. The paranasal sinuses are clear. Mastoid air cells are clear. IMPRESSION: Extensive areas of probable early encephalomalacia throughout the right hemisphere with possible small areas of hemorrhage. Additional left occipital encephalomalacia. Recommend MRI. Electronically signed by: Kiel France MD . 02:48 Differential diagnosis: acute pericarditis, anxiety, chest wall pain, esophagitis, sp4 gastritis, gastroesophageal reflux disease (GERD), stable angina. The patient was not given aspirin in the Emergency Department. Not indicated due to patient's past medical history. Data reviewed: vital signs, nurses notes, EMS record, old medical records, lab test result(s), EKG, radiologic studies, CT scan. Consideration of Admission/Observation Escalation of care including admission/observation considered. Management of patient was discussed with the following: Lens Assorter: Discussed with [facility] neurointensivist. Neurointensivist advised admission to medical surgical floor. 07/22 23:27 Order name: Blood Culture Adult (2) 4 07/22 23:27 Order name: CBC with Diff; Complete Time: 01:14 sp4 07/22 23:27 Order name: CMP; Complete Time: 01:14 sp4 07/22 23:27 Order name: Lactate w/ 2H reflex if indic.; Complete Time: 01:14 sp4 07/22 23:27 Order name: Protime (+inr); Complete Time: 01:14 sp4 07/22 23:27 Order name: Ptt, Activated; Complete Time: 01:14 sp4 07/22 23:27 Order name: Urinalysis w/ reflexes; Complete Time: 01:14 sp4 07/22 23:27 Order name: Troponin High Sensitivity; Complete Time: 01:14 sp4 07/22 23:27 Order name: BNP; Complete Time: 01:14 sp4 07/22 23:27 Order name: TSH; Complete Time: 01:14 sp4 07/22 23:27 Order name: T4 Free; Complete Time: 01:14 sp4 07/22 23:29 Order name: CRP; Complete Time: 01:14 sp4 07/22 23:28 Order name: CT Head Brain wo Cont; Complete Time: 01:14 sp4 07/22 23:28 Order name: CT Chest Abdomen Pelvis W/O Contrast; Complete Time: 02:02 sp4 07/22 23:27 Order name: Cardiac monitoring; Complete Time: 00:04 sp4 07/22 23:27 Order name: Cath; Complete Time: 00:04 sp4 07/22 23:27 Order name: EKG - Nurse/Tech; Complete Time: 00:04 sp4 07/22 23:27 Order name: IV Saline Lock - Large Bore; Complete Time: 00:04 sp4 07/22 23:27 Order name: Labs collected and sent; Complete Time: 00:04 sp4 07/22 23:27 Order name: O2 Per Protocol; Complete Time: 00:04 sp4 07/22 23:27 Order name: O2 Sat Monitoring; Complete Time: 00:04 sp4 07/22 23:27 Order name: Vital Signs; Complete Time: 00:04 sp4 EC/26 23:40 Rate is 97 beats/min. Rhythm is regular, Normal Sinus Rhythm. Left axis deviation sp4 noted. MT interval is normal. QRS interval is normal. QT interval is normal. No Q waves. T waves are Normal. No ST changes noted. Clinical impression: No evidence of ischemia. Interpreted by me. Reviewed by me. Administered Medications: 07/23 00:20 Drug: NS 0.9% IV (30 ml/kg) 30 ml/kg IV at bolus once; Sepsis Protocol; to be given as bm8 a bolus over 90 minutes Route: IV; Rate: bolus; Site: right antecubital; 04:50 Follow up: Response: No adverse reaction; IV Status: Completed infusion; IV Intake: bm8 1710ml 00:20 Drug: Cefepime IVPB 1 grams IVPB at 200 ml/hr once over 30 mins; (mix in NS 100 mL) bm8 Route: IVPB; Rate: 200 ml/hr; Infused Over: 30 mins; Site: right antecubital; 01:12 Follow up: Response: No adverse reaction; IV Status: Completed infusion; IV Intake: bm8 100ml 01:11 Drug: vancoMYCIN IVPB 1 grams IVPB once over 2 hrs Route: IVPB; Infused Over: 2 hrs; bm8 Site: right antecubital; 04:50 Follow up: Response: No adverse reaction; IV Status: Completed infusion; IV Intake: bm8 250ml 01:29 Drug: Insulin Regular Human IVP 5 units IVP once {Co-Signature: dd2 (KAN FERNANDEZ RN).} bm8 Route: IVP; Site: right antecubital; 02:09 Follow up: Response: No adverse reaction bm8 02:09 Drug: morphine IVP or IV 2 mg IVP once over 4 mins Route: IVP; Infused Over: 4 mins; bm8 Site: right antecubital; 04:49 Follow up: Response: No adverse reaction bm8 02:09 Drug: Ondansetron IVP 4 mg IVP once; over 2 minutes Route: IVP; Site: right antecubital;bm8 04:49 Follow up: Response: No adverse reaction bm8 Disposition Summary: 07/23/24 02:37 Transfer Ordered Notes: Transfer Location: [facility] sp4 Reason: Higher level of care sp4 Condition: Stable sp4 Problem: new sp4 Symptoms: have improved sp4 Accepting Physician: [facility]'s Neurointensivist(07/23/24 05:18) bm8 Diagnosis - Ischemic CVA with hemorrhagic transformation, acute hemorrhagic CVA, sp4 Forms: - Medication Reconciliation Form sp4 - SBAR form sp4 Signatures: Dispatcher [employer] EDKendrick Tucker MD MD sp4 Kirill Harrison RN RN bm8 KAN FERNANDEZ RN dd2 Corrections: (The following items were deleted from the chart) 07/22 23:28 23:27 BLOOD CULTURE*+BA.LAB.BRZ ordered. EDMS EDMS 23:28 23:27 CBC+H.LAB.BRZ ordered. EDMS EDMS 23:28 23:27 COMPREHENSIVE METABOLIC PANEL+C.LAB.BRZ ordered. EDMS EDMS 23:28 23:27 LACTATE+C.LAB.BRZ ordered. EDMS EDMS 23:28 23:28 PROTIME (+INR)+COAG.LAB.BRZ ordered. EDMS EDMS 23:28 23:28 PTT, ACTIVATED+COAG.LAB.BRZ ordered. EDMS EDMS 23:28 23:28 Urinalysis+U.LAB.BRZ ordered. EDMS EDMS 23:28 23:28 Troponin High Sensitivity+C.LAB.BRZ ordered. EDMS EDMS 23:28 23:28 PROBNP+C.LAB.BRZ ordered. EDMS EDMS 23:28 23:28 THYROID STIMULAT HORMONE+C.LAB.BRZ ordered. EDMS EDMS 23:28 23:28 Head Brain Wo Cont+CT.RAD.BRZ ordered. EDMS EDMS 07/23 00:04 07/22 23:27 Esdras durham sp4 bm8 07/23 05:18 02:37 [facility] Neurointensivist sp4 bm8
--- NOTE | 2024-07-23 02:38 | ER ---
Nurse's Notes [facility] Name: Isabel Henry Age: 78 yrs Sex: Female : 1945 Arrival Date: 07/22/2024 Time: 23:17 Bed 4 Private MD: Diagnosis: Ischemic CVA with hemorrhagic transformation, acute hemorrhagic CVA, Presentation: 07/22 23:18 Chief complaint: EMS states: Sudden onset of chest pain tonight. Pt has hx of MN, cabg bm8 and recent stroke. 23:18 Method Of Arrival: EMS: [facility] bm8 23:18 Coronavirus screen: At this time, the client does not indicate any symptoms associated bm8 with coronavirus-19. Ebola Screen: Patient negative for fever greater than or equal to 101.5 degrees Fahrenheit, and additional compatible Ebola Virus Disease symptoms Patient denies exposure to infectious person. Patient denies travel to an Ebola-affected area in the 21 days before illness onset. No symptoms or risks identified at this time. Initial Sepsis Screen: Does the patient meet any 2 criteria? No. Patient's initial sepsis screen is negative. Does the patient have a suspected source of infection? No. Patient's initial sepsis screen is negative. Risk Assessment: Do you want to hurt yourself or someone else? Patient reports no desire to harm self or others. Onset of symptoms was July 22, 2024 at 22:30. 23:18 Acuity: DIANELYS 2 bm8 07/23 00:14 Care prior to arrival: IV initiated. 20 GA, in the right antecubital area. bm8 Triage Assessment: 07/22 23:18 General: Appears in no apparent distress. comfortable, Behavior is cooperative, bm8 appropriate for age, anxious. 23:18 Pain: Complains of pain in chest Pain currently is 6 out of 10 on a pain scale. EENT: bm8 No deficits noted. No signs and/or symptoms were reported regarding the EENT system. Neuro: Level of Consciousness is awake, alert, obeys commands, Oriented to person, place, Weakness in left hand(s) arm(s) leg(s) Speech is normal, Facial droop on left. Cardiovascular: Reports chest pain, Heart tones S1 S2 present Capillary refill < 3 seconds in bilateral fingers Patient's skin is warm and dry. Rhythm is atrial fibrillation. Respiratory: Airway is patent Respiratory effort is even, unlabored, Respiratory pattern is regular, symmetrical, Breath sounds are clear bilaterally. GI: PEG tube clamped. Site clean. Bowel sounds present X 4 quads. : No signs and/or symptoms were reported regarding the genitourinary system. Derm: Wound noted coccyx Wound is stage two pressure ulcer on sacrum. Musculoskeletal: No signs and/or symptoms reported regarding the musculoskeletal system. Historical: - Allergies: 07/23 00:07 Depo-Provera; bm8 00:07 Vicodin; bm8 - Home Meds: 00:07 atorvastatin 40 mg Oral tablet daily [Active]; Diflucan 150 mg Oral tablet every week bm8 [Active]; fenofibrate 160 mg Oral tablet daily [Active]; glimepiride 2 mg Oral tablet every morning [Active]; glipizide 10 mg Oral Tablet daily [Active]; hydrochlorothiazide 25 mg Oral tablet every morning [Active]; levothyroxine 100 mcg tablet daily [Active]; lisinopril 40 mg Oral tablet daily [Active]; metformin 500 mg Oral tablet 2 times per day [Active]; Metoprolol Succinate ER 200 mg daily [Active]; omeprazole 20 mg Oral capsule daily [Active]; Ozempic 0.25 mg or 0.5 mg (2 mg/3 mL) subcutaneous Pen Injector every week [Active]; - PMHx: 00:07 diabetes mellitus; Hypothyroidism; Myocardial infarction; Pneumonia; bm8 - PSHx: 00:07 triple bypass; bm8 - Immunization history:: Adult Immunizations up to date. - Infectious Disease History:: Denies. - Social history:: Smoking status: Patient denies any tobacco usage or history of. - Family history:: not pertinent. Screenin:[facility] ED Fall Risk Assessment (Adult) History of falling in the last 3 months, bm8 including since admission Yes- fall prone (multiple falls) (3 pts) Confusion or Disorientation Yes (5 pts) Intoxicated or Sedated No (0 pts) Impaired Gait Yes (1 pt) Mobility Assist Device Used Yes (1 pt) Altered Elimination Yes (1 pt) Score/Fall Risk Level 3 or more points = High Risk Oriented to surroundings, Maintained a safe environment, Educated pt \\T\\ family on fall prevention, incl call for assistance when getting out of bed, Assessed \\T\\ reinforced patient's understanding of fall precautions, Hourly rounding (assess needs \\T\\ fall precautionary measures) done, Used ambulatory aids as needed (educated on \\T\\ assisted with), Used gait belt as appropriate Implemented a Fall Risk Plan of Care. Abuse screen: Denies threats or abuse. Nutritional screening: No deficits noted. Tuberculosis screening: No symptoms or risk factors identified. Assessment: 00:55 Reassessment: Patient appears in no apparent distress at this time. Patient and/or bm8 family updated on plan of care and expected duration. Pain level reassessed. pt rotated to left side Patient denies pain at this time. Patient states feeling better. General: Appears in no apparent distress. comfortable, Behavior is calm, cooperative, appropriate for age. Pain: Pain does not radiate. Pain began suddenly. Neuro: No deficits noted. Level of Consciousness is awake, alert, obeys commands, Oriented to person, place. Cardiovascular: Denies chest pain, Capillary refill < 3 seconds in bilateral fingers Patient's skin is warm and dry. Respiratory: Airway is patent Respiratory effort is even, unlabored, Respiratory pattern is regular, symmetrical. 02:10 Reassessment: PT BEGAN COMPLAINING OF LEFT ARM PAIN DESCRIBED VERY HEAVY AND UNABLE bm8 TO GET COMFORTABLE. PROVIDER INFORMED AND NEW ORDERS RECEIVED. 04:48 Reassessment: Patient appears in no apparent distress at this time. Patient and/or bm8 family updated on plan of care and expected duration. Pain level reassessed. Patient denies pain at this time. Patient states feeling better. Reassessment: pt is resting with eyes closed breathing is even unlabored with symmetrical rise and fall of chest. General: Appears in no apparent distress. comfortable, Behavior is calm, cooperative, appropriate for age. Pain: Denies pain. 05:02 Reassessment: ATTEMPTED TO CALL REPORT NURSE WHO ANSWERED STATED THAT "I DONT KNOW WHY bm8 THEY GAVE YOU NUMBER TO CALL REPORT WE DONT HAVE ANYMORE TELE BEDS>". 05:16 Reassessment: CALLED BACK TO [facility] AND SPOKE WITH NICOLLE, SHE GAVE THE bm8 NUMBER TO THE NURSE THAT WAS INTENDED TO TAKE REPORT ([phone]). CALLED AND RECEIVED NO ANSWER. 06:05 Reassessment: REPORT GIVEN TO ALBERT cortes at [facility]. bm8 Vital Signs: 07/22 23:18 BP 147 / 58; Pulse 95; Resp 18; Temp 98.8(A); Pulse Ox 99% ; Weight 57 kg; Height 5 ft. bm8 3 in. ; Pain 6/10; 07/23 00:59 BP 134 / 46; Pulse 94; Resp 14; Temp 98.8; Pulse Ox 99% ; Pain 4/10; bm8 02:10 BP 146 / 52; Pulse 90; Resp 18; Temp 98.7; Pulse Ox 98% ; Pain 4/10; bm8 04:53 BP 142 / 50; Pulse 102; Resp 18; Temp 98.7; Pulse Ox 98% ; Pain 0/10; bm8 07/22 23:18 Body Mass Index 22.26 (57.00 kg, 160.02 cm) bm8 07/22 23:18 Pain Scale: Adult bm8 07/23 00:59 Pain Scale: Adult bm8 02:10 Pain Scale: Adult bm8 04:53 Pain Scale: Adult bm8 [place] Coma Score: 00:59 Eye Response: spontaneous(4). Motor Response: obeys commands(6). Verbal Response: bm8 oriented(5). Total: 15. 02:10 Eye Response: to voice(3). Motor Response: obeys commands(6). Verbal Response: bm8 oriented(5). Total: 14. 02:26 Eye Response: spontaneous(4). Motor Response: obeys commands(6). Verbal Response: sp4 confused(4). Total: 14. 04:48 Eye Response: to voice(3). Motor Response: obeys commands(6). Verbal Response: bm8 confused(4). Total: 13. ED Course: 07/22 23:18 Patient arrived in ED. jj6 23:18 Arm band placed on right wrist. bm8 23:26 Kendrick Godinez MD is Attending Physician. sp4 23:55 No provider procedures requiring assistance completed. bm8 23:55 Initial lab(s) drawn, by me, sent to lab. First set of blood cultures drawn EKG done, bm8 by ED staff, reviewed by Kendrick Godinez MD. Maintain EMS IV. Dressing intact. Good blood return noted. Site clean \\T\\ dry. Gauge \\T\\ site: 20g rac. Flushed with 10 mL NS. Patient maintains SpO2 saturation greater than 95% on room air. 07/23 00:03 Kirill Harrison, RN is Primary Nurse. bm8 00:07 Triage completed. bm8 00:12 Patient has correct armband on for positive identification. Bed in low position. Call bm8 light in reach. Side rails up X2. Adult w/ patient. Client placed on continuous cardiac and pulse oximetry monitoring. NIBP monitoring applied. front desk monitor on. Pulse ox on. NIBP on. Door closed. Noise minimized. Warm blanket given. Pillow given. Verbal reassurance given. Head of bed elevated. 00:30 CT Head Brain wo Cont In Process Unspecified. EDMS 00:30 CT Chest Abdomen Pelvis W/O Contrast In Process Unspecified. EDMS 01:23 initiated transfer with [facility] \\\\ [facility]. kmf 02:30 [facility] . kmf 03:00 attempting transfer with [facility]. kmf 04:11 intiated transfer with [facility]. kmf 04:40 pt was accepted to [facility] - [address] [facility]. Number for nurse to nurse report [facility] [phone]. [address] Gabe Ely \\T\\[id number]. Admin approval Vicki Leonard \\T\\ [id number]. [facility] to transfer pt once nurse to nurse is complete. 04:48 Provided Education on: need for transfer. bm8 04:48 Patient transferred, IV remains in place. bm8 Administered Medications: 00:20 Drug: NS 0.9% IV (30 ml/kg) 30 ml/kg IV at bolus once; Sepsis Protocol; to be given as bm8 a bolus over 90 minutes Route: IV; Rate: bolus; Site: right antecubital; 04:50 Follow up: Response: No adverse reaction; IV Status: Completed infusion; IV Intake: bm8 1710ml 00:20 Drug: Cefepime IVPB 1 grams IVPB at 200 ml/hr once over 30 mins; (mix in NS 100 mL) bm8 Route: IVPB; Rate: 200 ml/hr; Infused Over: 30 mins; Site: right antecubital; 01:12 Follow up: Response: No adverse reaction; IV Status: Completed infusion; IV Intake: bm8 100ml 01:11 Drug: vancoMYCIN IVPB 1 grams IVPB once over 2 hrs Route: IVPB; Infused Over: 2 hrs; bm8 Site: right antecubital; 04:50 Follow up: Response: No adverse reaction; IV Status: Completed infusion; IV Intake: bm8 250ml 01:29 Drug: Insulin Regular Human IVP 5 units IVP once {Co-Signature: dd2 (KAN FERNANDEZ RN).} bm8 Route: IVP; Site: right antecubital; 02:09 Follow up: Response: No adverse reaction bm8 02:09 Drug: morphine IVP or IV 2 mg IVP once over 4 mins Route: IVP; Infused Over: 4 mins; bm8 Site: right antecubital; 04:49 Follow up: Response: No adverse reaction bm8 02:09 Drug: Ondansetron IVP 4 mg IVP once; over 2 minutes Route: IVP; Site: right antecubital;bm8 04:49 Follow up: Response: No adverse reaction bm8 Medication: 00:12 VIS not applicable for this client. bm8 Intake: 01:12 IV: 100ml; Total: 100ml. bm8 04:50 IV: 250ml; Total: 350ml. bm8 04:50 IV: 1710ml; Total: 2060ml. bm8 Outcome: 02:37 ER care complete, transfer ordered by sp4 05:18 Transferred by ground EMS to [facility], Transfer form completed. X-rays sent bm8 w/ patient. 05:18 Condition: stable 05:18 Instructed on follow up and referral plans. the need for transfer, Demonstrated understanding of instructions, follow-up care, 05:18 Patient left the ED. bm8 Signatures: Dispatcher [employer] EDMS Sharmin AddisonjKendrick Olguin MD MD sp4 Darcy Blanc [facility] Kirill Harrison RN RN bm8 KAN FERNANDEZ RN dd2 Corrections: (The following items were deleted from the chart) 00:59 07/22 23:18 Derm: No signs and/or symptoms reported regarding the dermatologic system. bm8 bm8 07/23 05:58 02:40 pt was accepted to [facility] by Dr. White J \\T\\ [id number]. Admin approval given [facility] by Chen J \\T\\ [id number]. Pt will go to [address] [place] [id number]. Number for nurse to nurse report [phone]. [facility] to transfer pt once nurse to nurse is complete. [facility] 06:01 01:50 [facility] . [facility]
[2024-07-23 05:38] VITALS: TEMP 98.7; O2SAT 98
[2024-07-23 05:40] VITALS: BP 142/50
--- NOTE | 2024-07-23 16:44 | EKG ---
Test Date: 2024-07-22 Test Time: 23:40:37 [employer]: MELLO MEASUREMENT RESULTS: Intervals: Rate: 97 WI: 168 QRSD: 80 QT: 362 QTc: 459 [place]: P: 63 WI: 168 QRS: -30 T: 69 INTERPRETIVE STATEMENTS: Normal sinus rhythm Left axis deviation Abnormal ECG Compared to ECG 06/10/2024 22:47:16 Left-axis deviation now present Atrial fibrillation no longer present Electronically Signed On 07-23-24 16:42:53 WARD CLERK by Josef Cast
== END 2024-07-23 05:18 | disposition short-term general hospital (02) ==
LOC: ER 23:17
DX: I63.511 Cerebral infarction due to unspecified occlusion or stenosis of right middle cerebral artery (principal); I61.9 Nontraumatic intracerebral hemorrhage, unspecified; R29.714 NIHSS score 14; E11.9 Type 2 diabetes mellitus without complications; E03.9 Hypothyroidism, unspecified; I25.2 Old myocardial infarction; Z95.1 Presence of aortocoronary bypass graft
CPT/HCPCS: 36415; 70450; 71250; 74176; 80053; 81003; 83605; 83880; 84439; 84443; 84484; 85025; 85610; 85730; 86140; 87040; 93005; 96365; 96366; 96367; 96368; 96375; 99285; J0692; J1815; J2270; J2405; J7030; J7050